=== PATIENT | male | born 1950 | race Caucasian/White ===

== ENCOUNTER 2016-03-14 13:40 | Emergency (ER) | payer OTHER ==
[~2016-03-14] VITALS: Wt 57.5 kg
[~2016-03-14 13:40] MED LIST: BISA-57 PO; CITROMA PO; DOCU-144 PO; FER325 PO; GLYC1SUP92 PR; HYDR-3498 PO; HYDR-762 PO; POLY17PO6 PO
[2016-03-14] MEDS ORDERED: ONDANSETRON 4 MG INJ IV STA (15:34)
[2016-03-14] MEDS ORDERED: FAMOTIDINE 20 MG INJ IV STA (15:34)
[2016-03-14] MEDS ORDERED: SOD CHLORIDE 0.9% 1,000 ML IV STA (15:34)
[2016-03-14 16:13] LABS: BASOPHILS % 0.3 % (0.0-2.0); EOSINOPHILS # 0.1 10^3/ul (0.0-0.5); EOSINOPHILS % 1.2 % (0.0-7.0); HEMATOCRIT 39.7 % (42.0-52.0); HEMOGLOBIN 12.8 g/dl (14.0-18.0); LYMPHOCYTES # 0.9 10^3/ul (0.8-2.9); LYMPHOCYTES % 8.4 % (15.0-51.0); MEAN CORPUSCULAR HGB CONC 32.2 g/dl (32.0-37.0); MEAN CORPUSCULAR VOLUME 71.4 fl (82.0-101.0); MEAN PLATELET VOLUME 7.4 fl (7.4-10.4); MONOCYTE # 0.3 10^3/ul (0.3-0.9); NEUTROPHIL # 9.2 10^3/ul (1.6-7.5); NEUTROPHILS % 87.1 % (39.0-77.0); PLATELET COUNT 493 10^3/UL (140-440); RED BLOOD COUNT 5.55 10^6/ul (4.70-6.10); RED CELL DISTRIBUTION WIDTH 15.6 % (11.5-14.5); UNCORRECTED WBC 10.6 10^3/ul (4.8-10.8); WHITE BLOOD COUNT 10.6 10^3/ul (4.8-10.8)
[2016-03-14 16:14] LABS: CONDITION 1; LH ANALYZER COMMENTS 1
[2016-03-14 16:17] LABS: POTASSIUM 3.9 mmol/L (3.5-5.1)
[2016-03-14 16:20] LABS: ALBUMIN/GLOBULIN RATIO 1.11; BILIRUBIN,INDIRECT 0.3 mg/dl (0-1.1); BILIRUBIN,TOTAL 0.3 mg/dl (0.2-1.3); CREATININE 0.85 mg/dl (0.61-1.24); TOTAL PROTEIN 7.6 g/dl (6.1-8.1)
[2016-03-14 16:21] LABS: CALCIUM 9.3 mg/dl (8.4-10.2)
[2016-03-14 17:25] LABS: ADD UMIC YES; URINE BILIRUBIN (Dip) NEGATIVE (NEGATIVE); URINE BLOOD (Dip) NEGATIVE (NEGATIVE); URINE COLOR LT. YELLOW (YELLOW); URINE GLUCOSE (Dip) NEGATIVE (NEGATIVE); URINE KETONES (Dip) NEGATIVE (NEGATIVE); URINE LEUKOCYTE ESTERASE (Dip) 2+ (NEGATIVE); URINE NITRITE (Dip) POSITIVE (NEGATIVE); URINE TOTAL PROTEIN (Dip) TRACE (NEGATIVE); URINE UROBILINOGEN (Dip) 0.2 E.U./dL (0.1-1.0)
[2016-03-14 17:35] LABS: BACTERIA,URINE MANY; SQUAMOUS EPITHELIAL CELL,UR RARE; URINE RBCS NONE SEEN /HPF (0)
--- NOTE | 2016-03-14 17:42 | RADRPT ---
PROCEDURE: CT abdomen and pelvis without contrast. CLINICAL INDICATION: Lower abdominal pain. TECHNIQUE: CT of the abdomen and pelvis without contrast was performed on a multidetector high-res olution CT scanner. Coronal and sagittal reformatted images were obtained from the axial source imag es. Images were reviewed on a high-resolution PACS workstation. The total exam CTDI equals 5.48 mGy and the total exam DLP equals 314.65 mGy-cm. One or more of the following dose reduction techniques were used: - Automated exposure control. - Adjustment of the mA and/or kV according to patient size. - Use of iterative reconstruction technique. COMPARISON: CTs dated 10/14/2015 and 06/08/2015. FINDINGS: The visualized lung bases are clear and the visualized heart is unremarkable. The liver is grossly unremarkable. There is no intra or extrahepatic biliary ductal dilatation. The gallbladder, spleen, pancreas, adrenal glands are grossly unremarkable. There is a nonobstructing 3 mm stone at the upper pole of the left kidney. Left renal cysts are again seen. There is no hydro nephrosis. Again demonstrated is irregular wall thickening and abnormal soft tissue density in the region of th e rectosigmoid junction, likely with luminal narrowing of the bowel in this region, suspicious for u nderlying neoplasm. There is a large of stool throughout the colon and there is mild diffuse dilatat ion of the small bowel with fecalization of the small bowel contents, consistent with bowel stasis. These findings may be related to an underlying partial small bowel obstruction secondary to this st ructure at the rectosigmoid junction. The appendix is not identified. There is a new small volume of ascites and there is presacral edema. There is no free intraperitonea l air. There is no mesenteric or retroperitoneal adenopathy. There are atherosclerotic changes of the aorta, which is nonaneurysmal. The prostate gland is enlarged measuring 4.9 cm in axial dimensio n. There is diffuse wall thickening of the urinary bladder. There is moderate multilevel degenerati ve spondylosis. There are no concerning osseous lesions. IMPRESSION: 1. Irregular wall thickening with luminal narrowing in the region of the rectosigmoid junction, rosmery picious for neoplasm with an underlying malignant stricture. Large amount of stool throughout the co emmanuel with moderate distension of small bowel loops and fecalization of the distal small bowel content s, suspicious for a partial obstruction related to the rectosigmoid stricture. 2. Nonobstructing 3 mm stone at the upper pole of the left kidney. 3. Small volume of ascites, new when compared with the prior. Presacral edema, unchanged. 4. Enlarged prostate gland. RPTAT: AA .Jos Asencio MD, Date Time Electronically viewed and signed by .Jos Asencio MD, on 03/14/2016 17:41 .P/
--- NOTE | 2016-03-14 17:56 | ERD ---
ER Documentation Chief Complaint Date/Time DATE: 03/14/16 TIME: 17:52 Chief Complaint abd pain, n/v, diarrhea, dizzy. hx colon CA. HPI This is a 65-year-old male who presents to the emergency room for evaluation of abdominal pain, nausea, vomiting and diarrhea. Patient states that the symptoms have been present for approximately 3 days duration. He does state that he has a history of colon cancer and is on chemotherapy for his colon cancer. The patient presents today for evaluation and localizes pain to the midportion of his abdomen. He denies any radiation of pain and denies any aggravating or relieving factors for his pain. ROS All systems reviewed and are negative except as per history of present illness. Medications Home Meds Reported Medications Hydrocodone Bit-Acetaminophen* ([place]*) 10-325 Mg Tablet, 1 TAB PO Q6 Y for PAIN , TAB 10/14/15 Discontinued Scripts Glycerin* (Glycerin (Adult)*) 1 Each Supp.rect, 1 EACH [place] DAILY Y for CONSTIPATION, #10 SUPP.RECT Prov:VIRI GOMEZ MD 10/14/15 Magnesium Citrate* (Citroma*) 300 Ml Soln, 300 ML PO DAILY Y for CONSTIPATION for 7 Days, #1 BOTTLE Prov:VIRI GOMEZ MD 10/14/15 Hydrocodone Bit-Acetaminophen* ([place]*) 5-325 Mg Tab, 1 TAB PO q6h Y for PAIN, # 40 TAB Prov:YUSUF POLLOCK NP 06/10/15 Bisacodyl* (Dulcolax*) 5 Mg Tablet.dr, 10 MG PO DAILY Y for CONSTIPATION, #20 TAB Prov:YUSUF POLLOCK NP 06/10/15 Docusate Sodium* (Colace*) 100 Mg Cap, 100 MG PO BID for 30 Days, CAP Prov:YUSUF POLLOCK NP 06/10/15 Polyethylene Glycol* (Miralax*) 17 Gm/Pkt Liq, 17 GM PO DAILY for 30 Days Prov:YUSUF POLLOCK NP 06/10/15 Ferrous Sulfate* (Ferrous Sulfate*) 325 Mg Tabec, 325 MG PO TID for 30 Days, TAB Prov:YUSUF POLLOCK NP 06/10/15 Allergies Allergies: Coded Allergies: No Known Allergy (Unverified , 03/14/16) PMhx/Soc History of Surgery: No Anesthesia Reaction: No (ukn) Hx Neurological Disorder: No Hx Respiratory Disorders: No Hx Cardiac Disorders: No Hx Psychiatric Problems: No Hx Miscellaneous Medical Probl: Yes (colon CA) Hx Alcohol Use: No Hx Substance Use: No Hx Tobacco Use: Yes (Cigar ) Smoking Status: Current some day smoker Physical Exam Vitals Vital Signs Date Time Temp Pulse Resp B/P Pulse Ox O2 Delivery O2 Flow Rate FiO2 03/14/16 14:01 96.9 129 20 114/73 99 Physical Exam INITIAL VITAL SIGNS: Reviewed by me GENERAL: The patient is well developed and appropriate for usual state of health in no apparent distress HEENT: Dry mucous membranes, pupils equal, round, and reactive to light. EOMI. There is no scleral icterus. NECK: C-spine is soft and supple, there is no meningismus. There is no cervical lymphadenopathy. LUNGS: Clear to auscultation bilaterally. There are no rales, wheezes or rhonchi. HEART: Regular rate and rhythm, no murmurs, clicks, rubs or gallops. ABDOMEN: Suprapubic tenderness to palpation, negative McBurney point tenderness , no CVAT, otherwise soft, non-tender, non-distended. There are bowel sounds in all four quadrants. No rebound or guarding. EXTREMITIES: There is no peripheral cyanosis or edema. No focal swelling or erythema. NEUROLOGICAL: The patient moves all four extremities with 5/5 strength. Cranial nerves II - XII are intact. Normal gait. Alert and oriented SKIN: There is no apparent rash or petechiae. HEME/LYMPHATIC: There is no evidence of excessive bruising or lymphedema. PSYCHIATRIC: The patient does not appear anxious or depressed. Result Diagram: 03/14/16 1557 03/14/16 1557 Results 24 hrs Laboratory Tests Test 03/14/16 15:57 03/14/16 17:13 Alanine Aminotransferase (ALT/SGPT) 15IU/L Albumin 4.0g/dl Albumin/Globulin Ratio 1.11 Alkaline Phosphatase 83IU/L Anion Gap 17 Aspartate Amino Transf (AST/SGOT) 17IU/L Basophils # 0.010^3/ul Basophils % 0.3% Blood Morphology Comment Blood Urea Nitrogen 19mg/dl Calcium Level 9.3mg/dl Carbon Dioxide Level 26mmol/L Chloride Level 96mmol/L Creatinine 0.85mg/dl Direct Bilirubin 0.00mg/dl Eosinophils # 0.110^3/ul Eosinophils % 1.2% Globulin 3.60g/dl Glucose Level 152mg/dl Hematocrit 39.7% Hemoglobin 12.8g/dl Indirect Bilirubin 0.3mg/dl Lipase 26U/L Lymphocytes # 0.910^3/ul Lymphocytes % 8.4% Mean Corpuscular Hemoglobin 23.0pg Mean Corpuscular Hemoglobin Concent 32.2g/dl Mean Corpuscular Volume 71.4fl Mean Platelet Volume 7.4fl Monocytes # 0.310^3/ul Monocytes % 3.0% Neutrophils # 9.210^3/ul Neutrophils % 87.1% Nucleated Red Blood Cells # 0.010^3/ul Nucleated Red Blood Cells % 0.0/100WBC Platelet Count 61518^3/UL Potassium Level 3.9mmol/L Red Blood Count 5.5510^6/ul Red Cell Distribution Width 15.6% Sodium Level 135mmol/L Total Bilirubin 0.3mg/dl Total Protein 7.6g/dl White Blood Count 10.610^3/ul Urine Bacteria MANY Urine Bilirubin NEGATIVE Urine Clarity CLOUDY Urine Coarse Granular Casts FEW Urine Color LT. YELLOW Urine Glucose NEGATIVE% Urine Hemoglobin NEGATIVE Urine Hyaline Casts MANY Urine Ketones NEGATIVE Urine Leukocyte Esterase 2+ Urine Microscopic RBC NONE SEEN/HPF Urine Microscopic WBC >50/HPF Urine Nitrite POSITIVE Urine Specific [place] 1.015 Urine Squamous Epithelial Cells RARE Urine Total Protein TRACE Urine Urobilinogen 0.2 E.U./dL Urine pH 6.0 Current Medications Medications (Trade) Dose Ordered Sig/Krystle Route PRN Reason Start Time Stop Time Status Last Admin Dose Admin Sodium Chloride (NS) 1,000 ml @ 1,000 mls/hr Q1H STAT IV 03/14/16 15:34 03/14/16 16:33 DC 03/14/16 15:54 Ondansetron HCl (Zofran Inj) 4 mg ONCE STAT IV 03/14/16 15:34 03/14/16 15:36 DC 03/14/16 15:54 Famotidine 20 mg 20 mg ONCE STAT IV 03/14/16 15:34 03/14/16 15:36 DC 03/14/16 15:54 Ceftriaxone Sodium (Rocephin) 50 ml @ 100 mls/hr ONCE ONCE IVPB 1/12/17 18:00 03/14/16 18:29 UNV Procedures/MDM CT abdomen pelvis without: 1. Irregular wall thickening with luminal narrowing in the region of the rectosigmoid junction, suspicious for neoplasm with an underlying malignant stricture. Large amount of stool throughout the colon with moderate distension of small bowel loops and fecalization of the distal small bowel contents, suspicious for a partial obstruction related to the rectosigmoid stricture. 2. Nonobstructing 3 mm stone at the upper pole of the left kidney. 3. Small volume of ascites, new when compared with the prior. Presacral edema , unchanged. 4. Enlarged prostate gland. This 65-year-old male presents to the emergency room for evaluation of abdominal pain, nausea, vomiting and diarrhea. When I evaluated him he did have suprapubic tenderness to palpation. Lab work was obtained including a CT of the abdomen and the urinalysis. After we sent off labs this patient did mention that he does have burning on urination. Urine does show a nitrite positive urinary tract infection. This patient is afebrile, no leukocytosis, he is tolerating p.o. fluids at this time. He is hemodynamically stable and was given 1 g of Rocephin here in the emergency room. Given this patient's stable symptoms he will be discharged home with a prescription for ciprofloxacin to take over the course of the next 2 weeks. The patient is okay with her plan of care and has no signs of sepsis at this time. Departure Diagnosis: Primary Impression: Acute cystitis Additional Impression: Diarrhea Condition: Stable JOSE E GILES DO Mar 14, 2016 17:56
[2016-03-14] MEDS ORDERED: CIPR500T4 PO (17:57)
[2016-03-14] MEDS ORDERED: CEFTRIAXONE 1 GM/50 ML (PMX) 50 ML IVPB ONE (18:00)
[2016-03-14] MEDS ORDERED: HYDR-902 PO (18:16)
[2016-03-14] MEDS ORDERED: HYDROCODONE/APAP (10/325) TAB PO ONE (18:30)
[2016-03-14 19:23] VITALS: BP 110/70; PULSE 78; RESP 18
== END 2016-03-14 19:00 | disposition home or self-care (01) ==
LOC: E/R 13:40
DX: N30.00 Acute cystitis without hematuria (principal); F17.210 Nicotine dependence, cigarettes, uncomplicated; R19.7 Diarrhea, unspecified; Z85.038 Personal history of other malignant neoplasm of large intestine
CPT/HCPCS: 36415; 74176; 80053; 81001; 83690; 85025; 96374; 96375; J0696; J2405; J7030; Z7502; Z7610; 81003

== ENCOUNTER 2016-04-01 11:17 | Inpatient (IN) | payer BC, OTHER ==
[~2016-04-01] VITALS: Ht 182.9 cm; Wt 52.9 kg
[~2016-04-01 11:17] MED LIST changes: -BISA-57 PO; +CIPR500T4 PO; -CITROMA PO; -DOCU-144 PO; -FER325 PO; -GLYC1SUP92 PR; -HYDR-3498 PO; +HYDR-902 PO; -POLY17PO6 PO
[2016-04-01] MEDS ORDERED: morphine 4 MG/ML VIAL IV STA (15:12)
[2016-04-01] MEDS ORDERED: ONDANSETRON 4 MG INJ IV STA (15:12)
[2016-04-01] MEDS ORDERED: SOD CHLORIDE 0.9% 1,000 ML IV ONE (15:30)
[2016-04-01 15:33] LABS: BASOPHIL # 0.1 10^3/ul (0.0-0.1); BASOPHILS % 0.8 % (0.0-2.0); EOSINOPHILS % 0.5 % (0.0-7.0); HEMATOCRIT 37.9 % (42.0-52.0); LYMPHOCYTES # 1.1 10^3/ul (0.8-2.9); LYMPHOCYTES % 12.7 % (15.0-51.0); MEAN CORPUSCULAR HEMOGLOBIN 22.7 pg (29.0-33.0); MEAN CORPUSCULAR HGB CONC 31.6 g/dl (32.0-37.0); MEAN CORPUSCULAR VOLUME 71.8 fl (82.0-101.0); MEAN PLATELET VOLUME 7.7 fl (7.4-10.4); MONOCYTE # 0.7 10^3/ul (0.3-0.9); MONOCYTES % 8.2 % (0.0-11.0); NEUTROPHIL # 6.6 10^3/ul (1.6-7.5); NEUTROPHILS % 77.8 % (39.0-77.0); PLATELET COUNT 560 10^3/UL (140-440); RED BLOOD COUNT 5.28 10^6/ul (4.70-6.10); RED CELL DISTRIBUTION WIDTH 16.2 % (11.5-14.5); UNCORRECTED WBC 8.5 10^3/ul (4.8-10.8); WHITE BLOOD COUNT 8.5 10^3/ul (4.8-10.8)
[2016-04-01 15:36] LABS: CONDITION 1; LH ANALYZER COMMENTS 1
[2016-04-01 15:39] LABS: ALBUMIN 3.6 g/dl (3.3-4.9); POTASSIUM 3.4 mmol/L (3.5-5.1)
[2016-04-01 15:41] LABS: BILIRUBIN,INDIRECT 0.2 mg/dl (0-1.1); BILIRUBIN,TOTAL 0.2 mg/dl (0.2-1.3); CREATININE 0.8 mg/dl (0.61-1.24)
[2016-04-01 15:42] LABS: ALBUMIN/GLOBULIN RATIO 1.05; CALCIUM 8.8 mg/dl (8.4-10.2)
[2016-04-01 15:49] LABS: URINE BLOOD (Dip) POC Negative (NEGATIVE)
--- NOTE | 2016-04-01 16:04 | RADRPT ---
PROCEDURE: CT Abdomen and Pelvis without contrast CLINICAL INDICATION: Pain TECHNIQUE: Transaxial images were obtained through the abdomen and pelvis on a multi-slice scanner without the intravenous contrast administration. No oral contrast had previously been given. Sagit sanchez and coronal re-formations were subsequently reconstructed. One or more of the following dose reduction techniques were used: - Automated exposure control. - Adjustment of the mA and/or kV according to patient size. - Use of iterative reconstruction technique. Radiation dose: CTDIvol = 5.34 mGy; DLP = 317.53 mGy-cm. COMPARISON: 03/14/2016 FINDINGS: Lung bases: The visualized lung bases appear unremarkable. Liver: Normal in size and in attenuation. There is no focal lesion. Gallbladder: The gallbladder is somewhat contracted but no stones are identified and the wall does n ot appear thickened. Bile ducts: The intra and extrahepatic bile ducts are normal in caliber. Pancreas: Appears normal with no mass or inflammation evident. Spleen: Normal in size with no focal lesion. Adrenals: Normal with no mass identified. Kidneys, ureters and bladder: A 1.2 cm hypodensity is seen within the anterior medial mid pole of th e left kidney and an exophytic 2.3 cm hypodensity is seen extend off the posterior lateral superior pole of the left kidney compatible with cysts. A 2 mm nonobstructing nephrolith is again seen within the superior pole left kidney. The kidneys are otherwise unremarkable without hydronephrosis. The ureters are unremarkable. The bladder is suboptimally distended giving the wall thickened appearan ce. Reproductive organs: The prostate is mildly prominent. Stomach and bowel: There is increasing air and fluid distension and organization of multiple segment s of small bowel but there is also stool seen throughout the colon which is moderately distended. T he pattern is therefore most compatible with a severe ileus. The stomach appears unremarkable. Appendix: The vermiform appendix is not discretely identified. Peritoneum: There is a small amount of free intraperitoneal fluid primarily within the right subphre marcos space and bilateral pericolic gutters as well as within the pelvis. No free air is identified. Aorta: There is atherosclerotic vascular calcification but no abdominal aortic aneurysm is evident. IVC: Unremarkable. Lymph nodes: No pathologically enlarged nodes are identified. Osseous structures: Moderate diffuse degenerative endplate changes are seen to the spine. IMPRESSION: 1. Since the previous CT of 03/14/2016, there has been interval increased gaseous distension and or ganization of multiple segments of small bowel but there is again stool seen throughout the colon. These findings are most suggestive of a worsening severe ileus than bowel obstruction. The vermifor m appendix is not discretely identified. 2. There is again no evidence of urinary outflow obstruction or ureterolithiasis. A 1.2 cm cyst is seen within the medial mid pole of the left kidney and a 2.3 cm cyst is again seen extend posterior ly off the superior pole of the left kidney. A 2 mm nonobstructing nephrolith is seen in the superio r pole left kidney. The bladder is suboptimally distended giving the wall thickened appearance and t he prostate is mildly prominent. 3. Slight interval increase to the small amount of free intraperitoneal fluid. Again no free air i s evident. 4. Atherosclerotic vascular changes are again evident. Physician Franky Date Time Electronically viewed and signed by Physician Franky on 04/01/2016 16:04 /
[2016-04-01] MEDS ORDERED: BISACODYL 10 MG SUPP PR ONE (17:00)
[2016-04-01] MEDS ORDERED: NA PHOSPHATE/BIPHOS 133 ML ENEMA PR ONE (17:00)
--- NOTE | 2016-04-01 18:27 | ERA ---
ER Documentation Chief Complaint Date/Time DATE: 04/01/16 Chief Complaint ADOMINAL PAIN X 1 WEEK,NAUSEA,VOMITING,HX COLON CA HPI The patient is an 65-year-old male, presenting to the ER because of diffuse abdominal pain intermittently for 1 week, associated with constipation. He has similar symptoms previously. He has been taking Cipro for the last 10 days for UTI. He complains of nausea, vomiting, decreased appetite, painful urination for the last 3 days. He denies chest pain, dyspnea, palpitation. He does not smoke, drink Past medical history: History of colon cancer, status post chemotherapy and radiation therapy Past surgical history: Right knee arthroscopy ROS All systems reviewed and are negative except as per history of present illness. Medications Home Meds Discontinued Reported Medications Hydrocodone Bit-Acetaminophen* ([place]*) 10-325 Mg Tablet, 1 TAB PO Q6 Y for PAIN , TAB 10/14/15 Discontinued Scripts Hydrocodone/Acetaminophen ([place] 10-325 Tablet) 1 Each Tablet, 1 TAB PO Q6H Y for PAIN, #7 TAB Prov:JOSE E GILES DO 03/14/16 Ciprofloxacin Hcl* (Ciprofloxacin Hcl*) 500 Mg Tablet, 500 MG PO BID for 14 Days , TAB Prov:JOSE E GILES DO 03/14/16 Allergies Allergies: Coded Allergies: No Known Allergies (Verified Allergy, Unknown, 04/01/16) PMhx/Soc History of Surgery: Yes (R knee surgery) Anesthesia Reaction: No (ukn) Hx Neurological Disorder: No Hx Respiratory Disorders: No Hx Cardiac Disorders: No Hx Psychiatric Problems: No Hx Miscellaneous Medical Probl: Yes (colon CA s/p chemo/radiation.) Hx Alcohol Use: No Hx Substance Use: No Hx Tobacco Use: Yes (Cigar ) Smoking Status: Current every day smoker Physical Exam Vitals Vital Signs Date Time Temp Pulse Resp B/P Pulse Ox O2 Delivery O2 Flow Rate FiO2 04/01/16 14:00 98.1 82 16 134/80 98 Room Air 04/01/16 11:56 97.9 78 18 132/78 98 Physical Exam Const: No acute distress. Head: Atraumatic. Eyes: Normal Conjunctiva. ENT: Normal External Ears, Nose and Mouth. Neck: Full range of motion. No meningismus. Resp: Clear to auscultation bilaterally. Cardio: Regular rate and rhythm, no murmurs. Abd: Soft, non distended, hypoactive bowel sounds, diffuse abdominal discomfort, no rigidity, rebound, CVA tenderness Skin: No petechiae or rashes. Back: No midline or flank tenderness. Ext: No cyanosis, or edema. Neur: Awake and alert. No focal deficit Psych: Normal Mood and Affect. Result Diagram: 04/01/16 1510 04/01/16 1510 Results 24 hrs Laboratory Tests Test 04/01/16 15:10 04/01/16 15:49 Alanine Aminotransferase (ALT/SGPT) 25IU/L Albumin 3.6g/dl Albumin/Globulin Ratio 1.05 Alkaline Phosphatase 89IU/L Anion Gap 15 Aspartate Amino Transf (AST/SGOT) 18IU/L Basophils # 0.110^3/ul Basophils % 0.8% Blood Morphology Comment Blood Urea Nitrogen 26mg/dl Calcium Level 8.8mg/dl Carbon Dioxide Level 32mmol/L Chloride Level 93mmol/L Creatinine 0.80mg/dl Direct Bilirubin 0.00mg/dl Eosinophils # 0.010^3/ul Eosinophils % 0.5% Globulin 3.40g/dl Glucose Level 120mg/dl Hematocrit 37.9% Hemoglobin 12.0g/dl Indirect Bilirubin 0.2mg/dl Lipase 35U/L Lymphocytes # 1.110^3/ul Lymphocytes % 12.7% Mean Corpuscular Hemoglobin 22.7pg Mean Corpuscular Hemoglobin Concent 31.6g/dl Mean Corpuscular Volume 71.8fl Mean Platelet Volume 7.7fl Monocytes # 0.710^3/ul Monocytes % 8.2% Neutrophils # 6.610^3/ul Neutrophils % 77.8% Nucleated Red Blood Cells # 0.010^3/ul Nucleated Red Blood Cells % 0.0/100WBC Platelet Count 04948^3/UL Potassium Level 3.4mmol/L Red Blood Count 5.2810^6/ul Red Cell Distribution Width 16.2% Sodium Level 137mmol/L Total Bilirubin 0.2mg/dl Total Protein 7.0g/dl White Blood Count 8.510^3/ul Bedside Urine Blood Negative Bedside Urine Glucose (UA) 0.1% Bedside Urine Ketones (LAB) 3+ Bedside Urine Leukocyte Esterase (L Negative Bedside Urine Nitrite (LAB) Negative Bedside Urine Protein (LAB) 2+ Bedside Urine pH (LAB) 5.5 Current Medications Medications (Trade) Dose Ordered Sig/Krystle Route PRN Reason Start Time Stop Time Status Last Admin Dose Admin Morphine Sulfate (morphine) 4 mg ONCE STAT IV 04/01/16 15:12 04/01/16 15:13 DC 04/01/16 15:19 Ondansetron HCl 4 mg 4 mg ONCE STAT IV 04/01/16 15:12 04/01/16 15:13 DC 04/01/16 15:19 Sodium Chloride (NS) 1,000 ml @ 1,000 mls/hr Q1H ONCE IV 04/01/16 15:30 04/01/16 16:29 DC 04/01/16 15:40 Sodium Biphosphate/ Sodium Phosphate (Fleet Enema) 133 ml ONCE ONCE AR 04/01/16 17:00 04/01/16 17:01 DC 04/01/16 16:42 Bisacodyl 10 mg 10 mg ONCE ONCE AR 04/01/16 17:00 04/01/16 17:01 DC 04/01/16 16:42 Potassium Chloride/Sodium Chloride (KCl/NS) 110 ml @ 55 mls/hr ONCE ONCE IVPB 04/01/16 20:00 04/01/16 21:59 Procedures/[place] [id number] Radiology Main Line: [phone] DIAGNOSTIC IMAGING REPORT Patient: CARA WILKINSON : 1950 Age: 65 Sex: M MR #: [id number] DOS: 04/01/16 [facility] Ordering MD: MARSHAL BOLAÑOS MD Location: E/R Room/Bed: PROCEDURE: CT Abdomen and Pelvis without contrast CLINICAL INDICATION: Pain TECHNIQUE: Transaxial images were obtained through the abdomen and pelvis on a multi-slice scanner without the intravenous contrast administration. No oral contrast had previously been given. Sagittal and coronal re-formations were subsequently reconstructed. One or more of the following dose reduction techniques were used: - Automated exposure control. - Adjustment of the mA and/or kV according to patient size. - Use of iterative reconstruction technique. Radiation dose: CTDIvol = 5.34 mGy; DLP = 317.53 mGy-cm. COMPARISON: 03/14/2016 FINDINGS: Lung bases: The visualized lung bases appear unremarkable. Liver: Normal in size and in attenuation. There is no focal lesion. Gallbladder: The gallbladder is somewhat contracted but no stones are identified and the wall does not appear thickened. Bile ducts: The intra and extrahepatic bile ducts are normal in caliber. Pancreas: Appears normal with no mass or inflammation evident. Spleen: Normal in size with no focal lesion. Adrenals: Normal with no mass identified. Kidneys, ureters and bladder: A 1.2 cm hypodensity is seen within the anterior medial mid pole of the left kidney and an exophytic 2.3 cm hypodensity is seen extend off the posterior lateral superior pole of the left kidney compatible with cysts. A 2 mm nonobstructing nephrolith is again seen within the superior pole left kidney. The kidneys are otherwise unremarkable without hydronephrosis. The ureters are unremarkable. The bladder is suboptimally distended giving the wall thickened appearance. Reproductive organs: The prostate is mildly prominent. Stomach and bowel: There is increasing air and fluid distension and organization of multiple segments of small bowel but there is also stool seen throughout the colon which is moderately distended. The pattern is therefore most compatible with a severe ileus. The stomach appears unremarkable. Appendix: The vermiform appendix is not discretely identified. Peritoneum: There is a small amount of free intraperitoneal fluid primarily within the right subphrenic space and bilateral pericolic gutters as well as within the pelvis. No free air is identified. Aorta: There is atherosclerotic vascular calcification but no abdominal aortic aneurysm is evident. IVC: Unremarkable. Lymph nodes: No pathologically enlarged nodes are identified. Osseous structures: Moderate diffuse degenerative endplate changes are seen to the spine. IMPRESSION: 1. Since the previous CT of 03/14/2016, there has been interval increased gaseous distension and organization of multiple segments of small bowel but there is again stool seen throughout the colon. These findings are most suggestive of a worsening severe ileus than bowel obstruction. The vermiform appendix is not discretely identified. 2. There is again no evidence of urinary outflow obstruction or ureterolithiasis. A 1.2 cm cyst is seen within the medial mid pole of the left kidney and a 2.3 cm cyst is again seen extend posteriorly off the superior pole of the left kidney. A 2 mm nonobstructing nephrolith is seen in the superior pole left kidney. The bladder is suboptimally distended giving the wall thickened appearance and the prostate is mildly prominent. 3. Slight interval increase to the small amount of free intraperitoneal fluid. Again no free air is evident. 4. Atherosclerotic vascular changes are again evident. Physician Franky Date Time Electronically viewed and signed by Physician Franky on 04/01/2016 16:04 RH/ CC: MARSHAL BOLAÑOS MD MEDICAL MAKING DECISION: The patient is a 75-year-old male, presenting with acute ileus, acute hypokalemia, acute dehydration. He was treated with 1 L normal saline, morphine 4 mg IV for pain, Zofran formalin IV for nausea, potassium chloride 20 mEq IV and a Fleet enema good response. The differential diagnoses considered include but are not limited to cholelithiasis, cholecystitis, cystitis, pancreatitis, hepatitis, gastritis, peptic ulcer disease, gastric ulcer, appendicitis, diverticulitis, cholangitis, choledocholithiasis, partial small bowel obstruction. Departure Diagnosis: Primary Impression: Ileus Additional Impressions: Hypokalemia Anemia Condition: Stable Comments I discussed the findings with the patient. I discussed the patient with the on- call hospitalist Dr Cummings who was made aware of the lab, the treatment, the patient condition. The patient is admitted to medical surgery bed at 6:50 PM MARSHAL BOLAÑOS MD Apr 01, 2016 18:27
[2016-04-01] MEDS ORDERED: HYDROmorphONE 1 MG/ML SYG IV STA (19:26)
[2016-04-01] MEDS ORDERED: NACL 0.9% 3 ML SYG IV SCH (19:30)
[2016-04-01] MEDS ORDERED: ALBUTEROL/IPRATROPIUM (NEB) 3 ML AMP HHN PRN (19:30)
[2016-04-01] MEDS ORDERED: BACLOFEN 10 MG TAB PO ONE (19:30)
[2016-04-01] MEDS ORDERED: hydrALAzine 20 MG INJ IV PRN (19:30)
[2016-04-01] MEDS ORDERED: NITROGLYCERIN (SL) 0.4 MG TAB SL PRN (19:30)
[2016-04-01] MEDS ORDERED: NA PHOSPHATE/BIPHOS 133 ML ENEMA PR PRN (19:30)
[2016-04-01] MEDS ORDERED: DOCUSATE SODIUM 100 MG CAP PO PRN (19:30)
[2016-04-01] MEDS ORDERED: ACETAMINOPHEN 325 MG TAB PO PRN (19:30)
[2016-04-01] MEDS ORDERED: PANTOPRAZOLE 40 MG INJ IV ONE (19:30)
[2016-04-01] MEDS ORDERED: POTASSIUM CHLORIDE 20 MEQ in SOD CHLORIDE 0.9% 100 ML IVPB ONE (20:00)
[2016-04-01 20:46] VITALS: TEMP 98.3
[2016-04-01 21:01] LABS: INR 1.07; PARTIAL THROMBOPLASTIN TIME 29.3 Sec (25.0-35.0); PROTIME 13.9 Sec (12.2-14.2); PT RATIO 1.1
[2016-04-01 21:08] VITALS: BP 154/74; RESP 21
[2016-04-01 21:30] VITALS: Ht 182.9 cm; Wt 52.9 kg
[2016-04-01] MEDS: SOD CHLORIDE 0.45% 1,000 ML IV SCH (21:38)
[2016-04-01] MEDS: HEPARIN 5,000 UNIT/0.5 ML SYG SC SCH (22:07)
[2016-04-02] MEDS: LORAZEPAM 2 MG INJ IV PRN ×2 (00:56→22:16)
[2016-04-02 06:00] LABS: CHOL/HDL RATIO 2.2 RATIO
[2016-04-02] MEDS ORDERED: PANTOPRAZOLE 40 MG INJ IV SCH (06:00)
[2016-04-02 07:28] LABS: THYROID STIMULATING HORMONE 3.2 MIU/L (0.465-4.680)
[2016-04-02 07:41] VITALS: BP 140/69; RESP 20
[2016-04-02 07:53] LABS: POTASSIUM 3.9 mmol/L (3.5-5.1)
[2016-04-02 07:55] LABS: CREATININE 0.62 mg/dl (0.61-1.24)
[2016-04-02 07:56] LABS: CALCIUM 7.9 mg/dl (8.4-10.2); PHOSPHORUS 3.4 mg/dl (2.5-4.9)
--- NOTE | 2016-04-02 08:31 | HP ---
DATE OF ADMISSION: 04/01/2016 TIME SEEN: 2300 CHIEF COMPLAINT: Vomiting and constipation and abdominal pain. HISTORY OF PRESENT ILLNESS: The patient is a 65-year-old male with a history of colon cancer, statu s post chemo, hypertension, and a recently diagnosed UTI on Cipro who presented to the emergency dep artment with abdominal pain, vomiting, and constipation of 3 days' duration. He denied any fever, c hills, chest pain, or shortness of breath. When he presented to the ER, his vitals were stable. La boratory values show a hemoglobin of 12 with MCV of 72, potassium 3.4, chloride 93, bicarbonate 32, otherwise the rest of his CBC and CMP are within normal limits. His lipase is normal at 35. CT abd omen and pelvis was done which shows, as compared to the CT that was done 2 weeks ago, there has bee n interval increased gaseous distention and organization of multiple segments of small bowel with st ools throughout the colon, these findings most suggestive of worsening severe ileus than bowel obstr uction. Also noted was a distended bladder with thickened wall and slight interval increase to the small amount of free intraperitoneal fluid as well as a 1.2 cm cyst within the left kidney and 2.3 c m cyst posteriorly in the left kidney. An NG tube had been placed, and the patient admitted for fur ther evaluation. Surgical consultation has been placed. Of note, the patient was admitted here abo ct a year ago after he presented with abdominal pain. 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 EGD showed distal esophagitis with gastritis. Further anemia workup showed iron defic iency. REVIEW OF SYSTEMS: A 12-point review of systems negative except as mentioned in the HPI. PAST MEDICAL HISTORY: As per HPI. SOCIAL HISTORY: Denied a history of tobacco, alcohol, or illicit drug use. ALLERGIES: NO KNOWN DRUG ALLERGIES. HOME MEDICATIONS: Ciprofloxacin. PHYSICAL EXAMINATION: VITAL SIGNS: Stable. GENERAL: The patient in mild discomfort due to the NG tube, otherwise stable. HEENT: No obvious head deformity. NG tube in place to low intermittent suction. His pupils are re active to light. CARDIOVASCULAR: Regular rate and rhythm. No extra sounds. LUNGS: Clear. ABDOMEN: Soft, nondistended. There is discomfort to palpation diffusely with no guarding or rigidi ty. EXTREMITIES: No edema. NEUROLOGIC: No focal deficit. LABORATORY: Pertinent positives as mentioned in the HPI. IMAGING: CT abdomen and pelvis with results as mentioned in the HPI. IMPRESSION: 1. Abdominal pain with nausea, vomiting, constipation, likely secondary to severe ileus with less l ikely bowel obstruction. 2. Severe ileus. 3. 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 4. History of distal esophagitis, gastritis 5. Iron deficiency anemia. 6. History of hypertension. 7. Recently diagnosed urinary tract infection, on Cipro. 8. Mild hypokalemia. PLAN: We will keep n.p.o. He will be placed on IV fluid. Will continue NG tube to low intermitten t suction. The patient will be evaluated by the surgical team. We will provide pain medication and antiemetics as needed. Given his recent history of urinary tract infection, will check a urinalysi s. We will correct his electrolytes as needed. Management of his rectal cancer per his oncologist. Further workup and management per clinical course. Dictated By: LINDA FLYNN/KEVIN Conf#: [id number] DID#: [id number]
[2016-04-02] MEDS: SOD CHLORIDE 0.45% 1,000 ML IV SCH ×2 (08:55→20:16)
[2016-04-02] MEDS: HEPARIN 5,000 UNIT/0.5 ML SYG SC SCH ×2 (08:57→20:16)
[2016-04-02] MEDS: morphine 2 MG INJ IV PRN ×3 (09:09→20:16)
[2016-04-02 09:42] LABS: BASOPHILS % 0.3 % (0.0-2.0); EOSINOPHILS % 0.8 % (0.0-7.0); HEMATOCRIT 28.9 % (42.0-52.0); HEMOGLOBIN 9.3 g/dl (14.0-18.0); LYMPHOCYTES # 0.7 10^3/ul (0.8-2.9); LYMPHOCYTES % 13.9 % (15.0-51.0); MEAN CORPUSCULAR HEMOGLOBIN 22.9 pg (29.0-33.0); MEAN CORPUSCULAR HGB CONC 32.1 g/dl (32.0-37.0); MEAN CORPUSCULAR VOLUME 71.5 fl (82.0-101.0); MEAN PLATELET VOLUME 7.8 fl (7.4-10.4); MONOCYTE # 0.5 10^3/ul (0.3-0.9); MONOCYTES % 8.7 % (0.0-11.0); NEUTROPHILS % 76.3 % (39.0-77.0); PLATELET COUNT 353 10^3/UL (140-440); RED BLOOD COUNT 4.04 10^6/ul (4.70-6.10); RED CELL DISTRIBUTION WIDTH 15.8 % (11.5-14.5); UNCORRECTED WBC 5.2 10^3/ul (4.8-10.8); WHITE BLOOD COUNT 5.2 10^3/ul (4.8-10.8)
[2016-04-02 09:46] LABS: CONDITION 1; LH ANALYZER COMMENTS 1
--- NOTE | 2016-04-02 13:55 | PN ---
Date/Time of Note Date/Time of Note DATE: 04/02/16 TIME: 13:52 Assessment/Plan VTE Prophylaxis VTE Prophylaxis Intervention: heparin Lines/Catheters IV Catheter Type (from Nrs): Peripheral IV Assessment/Plan Chief Complaint/Hosp Course Assessment and plan 1. Abdominal pain likely secondary to ileus. Surgeon to follow. We'll get linen supervisor as well. 2. 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 We'll get oncologist follow 3. History of distal esophagitis and distress. We'll continue on PPI 4. Iron deficiency anemia. We'll resume patient's iron supplement 5. History of hypertension. We'll continue on antihypertensives and adjust as needed 6. Recent history of UTI. Continue on Cipro Disposition and plan: Await surgical/GI/oncology input. Continue on NG tube suction for now. Continue with analgesics as needed. npo for now. Continue inpatient monitoring Discussed plan of care with Dr. Roberts Problems: Subjective 24 Hr Interval Summary Free Text/Dictation Reports less abdominal pain at this time. Exam/Review of Systems Vital Signs Vitals Vital Signs Date Time Temp Pulse Resp B/P Pulse Ox O2 Delivery O2 Flow Rate FiO2 04/02/16 07:41 97.8 80 20 140/69 97 04/01/16 20:46 Room Air Intake and Output 04/01/16 04/01/16 04/02/16 15:00 23:00 07:00 Intake Total 900 ml Output Total 150 ml Balance 750 ml Exam General: No acute signs or symptoms of distress Eyes: pupils equal round, Anicteric sclera Neck: Supple nontender, no JVD Cardiac: S1, S2 auscultated, regular rhythm and rate Pulmonary: No coarse rhonchi or breathing auscultated GI: Abdomen soft nontender nondistended, bowel sounds active, NG tube in place Extremities: No edema bilateral lower extremities Skin: Clean dry and intact Neurologic: Alert to person place and time and situation Results Result Diagram: 04/02/1641904/02/16419 Results 24 hrs Laboratory Tests Test 04/01/16 15:10 04/01/16 15:49 04/01/16 19:49 04/02/16 04:20 Alanine Aminotransferase (ALT/SGPT) 25 Albumin 3.6 Albumin/Globulin Ratio 1.05 Alkaline Phosphatase 89 Anion Gap 15 15 Aspartate Amino Transf (AST/SGOT) 18 Basophils # 0.1 0.0 Basophils % 0.8 0.3 Blood Morphology Comment Blood Urea Nitrogen 26 H 27 H Calcium Level 8.8 7.9 L Carbon Dioxide Level 32 H 26 Chloride Level 93 L 100 Creatinine 0.80 0.62 Direct Bilirubin 0.00 Eosinophils # 0.0 0.0 Eosinophils % 0.5 0.8 Globulin 3.40 H Glucose Level 120 72 # Hematocrit 37.9 L 28.9 #L Hemoglobin 12.0 L 9.3 #L Indirect Bilirubin 0.2 Lipase 35 Lymphocytes # 1.1 0.7 L Lymphocytes % 12.7 L 13.9 L Mean Corpuscular Hemoglobin 22.7 L 22.9 L Mean Corpuscular Hemoglobin Concent 31.6 L 32.1 Mean Corpuscular Volume 71.8 L 71.5 L Mean Platelet Volume 7.7 7.8 Monocytes # 0.7 0.5 Monocytes % 8.2 8.7 Neutrophils # 6.6 4.0 Neutrophils % 77.8 H 76.3 Nucleated Red Blood Cells # 0.0 0.0 Nucleated Red Blood Cells % 0.0 0.0 Platelet Count 560 H 353 # Potassium Level 3.4 L 3.9 Red Blood Count 5.28 4.04 #L Red Cell Distribution Width 16.2 H 15.8 H Sodium Level 137 137 Total Bilirubin 0.2 Total Protein 7.0 White Blood Count 8.5 5.2 # Bedside Urine Blood Negative Bedside Urine Glucose (UA) 0.1% H Bedside Urine Ketones (LAB) 3+ H Bedside Urine Leukocyte Esterase (L Negative Bedside Urine Nitrite (LAB) Negative Bedside Urine Protein (LAB) 2+ H Bedside Urine pH (LAB) 5.5 Activated Partial Thromboplast Time 29.3 Free Thyroxine 1.70 INR International Normalized Ratio 1.07 Prothrombin Time 13.9 Prothrombin Time Ratio 1.1 Cholesterol Level 95 L Cholesterol/HDL Ratio 2.2 HDL Cholesterol 43 Hemoglobin A1c 5.1 LDL Cholesterol, Calculated 35 Magnesium Level 2.0 Phosphorus Level 3.4 Thyroid Stimulating Hormone (TSH) 3.200 Triglycerides Level 84 Medications Medications Current Medications Ondansetron HCl (Zofran Inj) 4 mg Q6H PRN IV NAUSEA AND/OR VOMITING; Start at 19:30 Acetaminophen (Tylenol Tab) 650 mg Q6H PRN PO PAIN LEVEL 1-3 OR FEVER; Start at 19:30 Acetaminophen/ Hydrocodone Bitart ([place] (5/325)) 1 tab Q6H PRN PO MODERATE PAIN LEVEL 4-6; Start 04/01/16 at 19:30 Morphine Sulfate (morphine) 2 mg Q4H PRN IV SEVERE PAIN LEVEL 7-10 Last administered on 04/02/16 09:09; Admin Dose 2 MG; Start 04/01/16 at 19:30 Docusate Sodium (Colace) 100 mg Q12H PRN PO CONSTIPATION; Start 04/01/16 at 19: 30 Magnesium Hydroxide (Milk Of Mag) 30 ml DAILY PRN PO CONSTIPATION; Start at 19:30 Sodium Biphosphate/ Sodium Phosphate (Fleet Enema) 133 ml DAILY PRN [place] CONSTIPATION; Start 04/01/16 at 19:30 Pantoprazole (Protonix Iv) 40 mg DAILY@06 IV Last administered on 04/02/16 06: 41; Admin Dose 40 MG; Start 04/02/16 at 06:00 Heparin Sodium (Porcine) 5000 unit 5,000 unit Q12 SC Last administered on 08:57; Admin Dose 5,000 UNIT; Start 04/01/16 at 21:00 Sodium Chloride (1/2 NS) 1,000 ml @ 75 mls/hr [id number] IV Last administered on 04/02/16 08:55; Admin Dose 75 MLS/HR; Start 04/01/16 at 19:04 Lorazepam (Ativan) 0.5 mg Q6H PRN IV ANXIETY Last administered on 04/02/16 00: 56; Admin Dose 0.5 MG; Start 04/01/16 at 19:30 Hydralazine HCl (Apresoline) 10 mg Q6H PRN IV ELEVATED BLOOD PRESSURE; Start at 19:30 Nitroglycerin (Nitroglycerin (Sl Tab) 0.4 Mg) 1 tab Q5M PRN SL ANGINA; Start at 19:30 Influenza Virus Vaccine (Fluzone) 0.5 ml ONCE ONCE IM* ; Start 04/03/16 at 09:00 ; Stop 04/03/16 at 09:01 GLORY CHEW Apr 02, 2016 13:55
[2016-04-02] MEDS ORDERED: LACTULOSE 30ML CUP PO ONE (17:30)
--- NOTE | 2016-04-02 17:32 | CONS ---
Date/Time of Note Date/Time of Note DATE: 04/02/16 TIME: 17:26 Assessment/Plan Assessment/Plan Additional Assessment/Plan Abdominal pain, evaluate ileus versus PUD * CT abdomen 04-02-16: Stomach and bowel: There is increasing air and fluid distension and organization of multiple segments of small bowel but there is also stool seen throughout the colon which is moderately distended. The pattern is therefore most compatible with a severe ileus. The stomach appears unremarkable. * NG tube inserted to decompress abdomen * PPI twice daily Nausea Vomiting * EGD 06-08-15: . Distal esophagitis. 2. Gastritis. 3 biopsies negative for malignancy and H. pylori infection. Anemia * Monitor H&H every 6 hours, transfuse 2 units for hemoglobin less than 7.5 * Repeat EGD tomorrow with Dr. Mason History of rectal cancer * Colonoscopy 06-08-15: IMPRESSION: Large obstructing mass, proximal rectum, clearly malignant in nature. Biopsies obtained. Unable to safely advance the colonoscope beyond this point. The distal margin of the mass was located at 12 cm from the anal verge. * Repeat colonoscopy with Dr. Mason tomorrow * Surgery following Further recommendations depend on clinical course Patient seen in collaboration with Dr. Mason Consultation Date/Type/Reason Admit Date/Time Apr 01, 2016 at 18:54 Type of Consultation: Gastroenterology Reason for Consultation Intractable nausea and vomiting Hx of Present Illness 65-year-old male presented to ED after 1 week of intense abdominal pain nausea and nonbloody bilious vomiting. Patient states that symptoms started abruptly and continued to worsen throughout the week. Patient denies diarrhea, fever, chills, sick contacts, travel outside the [place], chest pain, shortness of breath, and previous episode. Patient has significant past medical history of rectal adenocarcinoma that was treated with chemotherapy and radiation. Patient reports last treatment about 4 months ago. At bedside, NG tube inserted to low intermittent suction with slightly serosanguineous discharge. Patient was recently treated in the emergency room March 14 for similar symptoms and was diagnosed and treated for UTI. Prior to this patient presented to ED October and was treated for radiation cystitis as well as constipation. Presently patient needs colonoscopy in order to stage cancer prior to resection and EGD is recommended to rule out active upper GI bleeding secondary to his drop in hemoglobin. Advised patient of risks/benefits/alternative to procedure and patient is agreeable to proceed. Past Medical History Medical History: GI bleed, other (Rectal cancer) Past Surgical History Past Surgical Hx: no surgical history Social History Alcohol Use: rarely Smoking Status: Former smoker Exam/Review of Systems Vital Signs Vitals Vital Signs Date Time Temp Pulse Resp B/P Pulse Ox O2 Delivery O2 Flow Rate FiO2 04/02/16 07:41 97.8 80 20 140/69 97 04/01/16 20:46 Room Air Intake and Output 04/01/16 04/01/16 04/02/16 15:00 23:00 07:00 Intake Total 900 ml Output Total 150 ml Balance 750 ml Exam Constitutional: alert, oriented, other (Thin) Psych: nl mood/affect Head: atraumatic Eyes: EOMI, nl conjunctiva, nl lids, nl sclera ENMT: mucosa pink and moist, nl external ears & nose, nl lips & teeth, nl nasal mucosa & septum Respiratory: normal air movement Cardiovascular: regular rate and rhythm Gastrointestinal: non-tender, soft Neurological: NATIONAL INVESTIGATIVE PRODUCER II-XII intact Results Result Diagram: 04/02/16 04204/02/16 0420 Results 24 hrs Laboratory Tests Test 04/01/16 19:49 04/02/16 04:20 Activated Partial Thromboplast Time 29.3 Free Thyroxine 1.70 INR International Normalized Ratio 1.07 Prothrombin Time 13.9 Prothrombin Time Ratio 1.1 Anion Gap 15 Basophils # 0.0 Basophils % 0.3 Blood Morphology Comment Blood Urea Nitrogen 27 H Calcium Level 7.9 L Carbon Dioxide Level 26 Chloride Level 100 Cholesterol Level 95 L Cholesterol/HDL Ratio 2.2 Creatinine 0.62 Eosinophils # 0.0 Eosinophils % 0.8 Glucose Level 72 # HDL Cholesterol 43 Hematocrit 28.9 #L Hemoglobin 9.3 #L Hemoglobin A1c 5.1 LDL Cholesterol, Calculated 35 Lymphocytes # 0.7 L Lymphocytes % 13.9 L Magnesium Level 2.0 Mean Corpuscular Hemoglobin 22.9 L Mean Corpuscular Hemoglobin Concent 32.1 Mean Corpuscular Volume 71.5 L Mean Platelet Volume 7.8 Monocytes # 0.5 Monocytes % 8.7 Neutrophils # 4.0 Neutrophils % 76.3 Nucleated Red Blood Cells # 0.0 Nucleated Red Blood Cells % 0.0 Phosphorus Level 3.4 Platelet Count 353 # Potassium Level 3.9 Red Blood Count 4.04 #L Red Cell Distribution Width 15.8 H Sodium Level 137 Thyroid Stimulating Hormone (TSH) 3.200 Triglycerides Level 84 White Blood Count 5.2 # Medications Medications Current Medications Ondansetron HCl (Zofran Inj) 4 mg Q6H PRN IV NAUSEA AND/OR VOMITING; Start at 19:30 Acetaminophen (Tylenol Tab) 650 mg Q6H PRN PO PAIN LEVEL 1-3 OR FEVER; Start at 19:30 Acetaminophen/ Hydrocodone Bitart ([place] (5/325)) 1 tab Q6H PRN PO MODERATE PAIN LEVEL 4-6; Start 04/01/16 at 19:30 Morphine Sulfate (morphine) 2 mg Q4H PRN IV SEVERE PAIN LEVEL 7-10 Last administered on 04/02/16 16:06; Admin Dose 2 MG; Start 04/01/16 at 19:30 Docusate Sodium (Colace) 100 mg Q12H PRN PO CONSTIPATION; Start 04/01/16 at 19: 30 Magnesium Hydroxide (Milk Of Mag) 30 ml DAILY PRN PO CONSTIPATION; Start at 19:30 Sodium Biphosphate/ Sodium Phosphate (Fleet Enema) 133 ml DAILY PRN IN CONSTIPATION; Start 04/01/16 at 19:30 Pantoprazole (Protonix Iv) 40 mg DAILY@06 IV Last administered on 04/02/16 06: 41; Admin Dose 40 MG; Start 04/02/16 at 06:00 Heparin Sodium (Porcine) 5000 unit 5,000 unit Q12 SC Last administered on 08:57; Admin Dose 5,000 UNIT; Start 04/01/16 at 21:00 Sodium Chloride (1/2 NS) 1,000 ml @ 75 mls/hr [id number] IV Last administered on 04/02/16 08:55; Admin Dose 75 MLS/HR; Start 04/01/16 at 19:04 Lorazepam (Ativan) 0.5 mg Q6H PRN IV ANXIETY Last administered on 04/02/16 00: 56; Admin Dose 0.5 MG; Start 04/01/16 at 19:30 Hydralazine HCl (Apresoline) 10 mg Q6H PRN IV ELEVATED BLOOD PRESSURE; Start at 19:30 Nitroglycerin (Nitroglycerin (Sl Tab) 0.4 Mg) 1 tab Q5M PRN SL ANGINA; Start at 19:30 Influenza Virus Vaccine (Fluzone) 0.5 ml ONCE ONCE IM* ; Start 04/03/16 at 09:00 ; Stop 04/03/16 at 09:01 DOLORES CASTRO Apr 02, 2016 17:32
[2016-04-02] MEDS: PANTOPRAZOLE 40 MG INJ IV SCH (18:46)
[2016-04-02] MEDS: LACTULOSE 30ML CUP NGT SCH ×3 (18:47→23:22)
[2016-04-02 19:34] VITALS: BP 152/72; RESP 19
--- NOTE | 2016-04-02 21:21 | CONS ---
Date/Time of Note Date/Time of Note DATE: 04/02/16 TIME: 21:21 Assessment/Plan Assessment/Plan Chief Complaint/Hosp Course ABD PAIN, vomiting, and constipation- SBO VS ILEUS NPO NGT IVF SURG F-UP RECTAL ADENOCARCINOMA- POST chemo/xrt CEA-P NONCOMPLIANT WITH SURGICAL F-UP R/O RECURRENCE OF MALIGNANCY REASON FOR ILEUS VS SBO AGREE WITH restaging; include a liver CT and pelvic MRI SEVERE IRON DEFICIENCY WITH Microcytic, hypochromic anemia. POST IV IRON MONITOR BLOOD COUNT CLOSELY Distal esophagitis with gastritis. Continue proton pump inhibitors. HTN POOR COMPLIANCE Problems: Consultation Date/Type/Reason Admit Date/Time Apr 01, 2016 at 18:54 24 HR Interval Summary Free Text/Dictation ALL NOTED NO NEW EVENTS NPO/IVF NO N/V OVER NT Exam/Review of Systems Vital Signs Vitals Vital Signs Date Time Temp Pulse Resp B/P Pulse Ox O2 Delivery O2 Flow Rate FiO2 04/02/16 19:34 99.1 82 19 152/72 98 04/01/16 20:46 Room Air Intake and Output 04/01/16 04/01/16 04/02/16 15:00 23:00 07:00 Intake Total 900 ml Output Total 150 ml Balance 750 ml Exam Constitutional: alert, oriented, other (Thin) Psych: nl mood/affect Head: atraumatic Eyes: EOMI, nl conjunctiva, nl lids, nl sclera ENMT: mucosa pink and moist, nl external ears & nose, nl lips & teeth, nl nasal mucosa & septum Respiratory: normal air movement Cardiovascular: regular rate and rhythm Gastrointestinal: non-tender, soft Neurological: REAL TIME ANALYST II-XII intact Results Result Diagram: 04/02/16 0420 04/02/16 0420 Results 24 hrs Laboratory Tests Test 04/02/16 04:20 Anion Gap 15 Basophils # 0.0 Basophils % 0.3 Blood Morphology Comment Blood Urea Nitrogen 27 H Calcium Level 7.9 L Carbon Dioxide Level 26 Chloride Level 100 Cholesterol Level 95 L Cholesterol/HDL Ratio 2.2 Creatinine 0.62 Eosinophils # 0.0 Eosinophils % 0.8 Glucose Level 72 # HDL Cholesterol 43 Hematocrit 28.9 #L Hemoglobin 9.3 #L Hemoglobin A1c 5.1 LDL Cholesterol, Calculated 35 Lymphocytes # 0.7 L Lymphocytes % 13.9 L Magnesium Level 2.0 Mean Corpuscular Hemoglobin 22.9 L Mean Corpuscular Hemoglobin Concent 32.1 Mean Corpuscular Volume 71.5 L Mean Platelet Volume 7.8 Monocytes # 0.5 Monocytes % 8.7 Neutrophils # 4.0 Neutrophils % 76.3 Nucleated Red Blood Cells # 0.0 Nucleated Red Blood Cells % 0.0 Phosphorus Level 3.4 Platelet Count 353 # Potassium Level 3.9 Red Blood Count 4.04 #L Red Cell Distribution Width 15.8 H Sodium Level 137 Thyroid Stimulating Hormone (TSH) 3.200 Triglycerides Level 84 White Blood Count 5.2 # Medications Medications Current Medications Ondansetron HCl (Zofran Inj) 4 mg Q6H PRN IV NAUSEA AND/OR VOMITING; Start at 19:30 Acetaminophen (Tylenol Tab) 650 mg Q6H PRN PO PAIN LEVEL 1-3 OR FEVER; Start at 19:30 Acetaminophen/ Hydrocodone Bitart ([place] (5/325)) 1 tab Q6H PRN PO MODERATE PAIN LEVEL 4-6; Start 04/01/16 at 19:30 Morphine Sulfate (morphine) 2 mg Q4H PRN IV SEVERE PAIN LEVEL 7-10 Last administered on 04/02/16 20:16; Admin Dose 2 MG; Start 04/01/16 at 19:30 Docusate Sodium (Colace) 100 mg Q12H PRN PO CONSTIPATION; Start 04/01/16 at 19: 30 Magnesium Hydroxide (Milk Of Mag) 30 ml DAILY PRN PO CONSTIPATION; Start at 19:30 Sodium Biphosphate/ Sodium Phosphate (Fleet Enema) 133 ml DAILY PRN NE CONSTIPATION; Start 04/01/16 at 19:30 Heparin Sodium (Porcine) 5000 unit 5,000 unit Q12 SC Last administered on 20:16; Admin Dose 5,000 UNIT; Start 04/01/16 at 21:00 Sodium Chloride (1/2 NS) 1,000 ml @ 75 mls/hr [id number] IV Last administered on 04/02/16 20:16; Admin Dose 75 MLS/HR; Start 04/01/16 at 19:04 Lorazepam (Ativan) 0.5 mg Q6H PRN IV ANXIETY Last administered on 04/02/16 00: 56; Admin Dose 0.5 MG; Start 04/01/16 at 19:30 Hydralazine HCl (Apresoline) 10 mg Q6H PRN IV ELEVATED BLOOD PRESSURE; Start at 19:30 Nitroglycerin (Nitroglycerin (Sl Tab) 0.4 Mg) 1 tab Q5M PRN SL ANGINA; Start at 19:30 Influenza Virus Vaccine (Fluzone) 0.5 ml ONCE ONCE IM* ; Start 04/03/16 at 09:00 ; Stop 04/03/16 at 09:01 Lactulose (Enulose) 20 gm Q2 NGT Last administered on 04/02/16t 20:14; Admin Dose 20 GM; Start 04/02/16 at 19:00; Stop 04/03/16 at 01:01 Magnesium Citrate (Citroma) 300 ml ONCE ONCE PO ; Start 04/03/16 at 06:00; Stop 04/03/16 at 06:01 Pantoprazole (Protonix Iv) 40 mg BID@,18 IV Last administered on 04/02/16 18 :46; Admin Dose 40 MG; Start 04/02/16 at 18:00 JASMINA PALOMARES MD Apr 02, 2016 21:21
--- NOTE | 2016-04-02 21:25 | CONS ---
Date/Time of Note Date/Time of Note DATE: 04/02/16 TIME: 07:56 Assessment/Plan Assessment/Plan Additional Assessment/Plan [facility] SUBSEQUENT INPATIENT CONSULTATION NOTE ASSESSMENT AND PLAN: A very-pleasant 66-year-old gentleman, well known to me from prior encounter in June 2015 for treatment of rectal cancer, here with partial small bowel obstruction vs. ileus. Possibility of malignant stricture exists. Other non-malignant issues (e.g. radiation induced obstruction) also are possible. Patient was lost to surgical follow up after his chemotherapy and radiation. Would benefit from restaging. Discussed with patient and his and answered all questions. Patient and his appeared to understand and wish to proceed. With above assessment, I've recommended the followin. Gastroenterology consultation for upper and lower endoscopy as part of restaging 2. Keep in-house 3. Resuscitate and once more stable, to perform liver-dedicated triple-phase IV and oral contrast CT of abd/pelvis 4. Tumor markers 5. Oncology and radiation oncology consultations with Dr. Campa and Dr. Aranda Thank you very much for having me involved in the care of this very pleasant young gentleman and and his wonderful family. I will continue to follow him along with you closely and will be available to answer any questions at area code [phone]. TOTAL VISIT TIME: 45 minutes of which more than half was spent in [id number] discussion with the patient, discussions with family, as well as coordination of care between multiple physicians and providers. Disclaimer: Inadvertent spelling and grammatical errors are likely due to EHR/ dictation software use and do not reflect on the quality of delivered patient care. Also, please note that the electronic time recorded on this node does not necessarily reflect the actual time of the visit. PLACE OF SERVICE: [facility], sixth floor DATE OF ADMISSION: 04/01/2016 DATE OF CONSULTATION: 04/02/2016 REASON FOR CONSULTATION: Possible bowel obstruction with history of rectal cancer REFERRING PHYSICIAN: Ivon Cummings MD Dear Dr. Cummings: Thank you very much for asking me to remain involved as a surgical instrument technician in the management of Mr. Tomeka Jackson. Updated Clinical Summary: A very-pleasant 65-year-old gentleman with comorbidities including hypertension , who was initially admitted to [facility] through ED on 06/05/2015 with signs and symptoms consistent with anemia that eventually was shown to be a large, nearly obstructing mass approximately 12 cm from the anal verge up to the area of the rectosigmoid junction on colonoscopy 06/07/2015. Plan at that time was neoadjuvant treatment with chemoradiation followed by restaging and surgical resection. Patient underwent chemotherapy (Dr. Campa) and radiation therapy (Dr. Aranda) that ended reportedly Nov 2015. Patient represented to [facility] through ED with constipation, vomiting, abdominal distension and dilated loops of small intestine on 04/01/16. HISTORY OF PRESENT ILLNESS: The patient is a very pleasant 65-year-old gentleman well known to me from his initial visit at [facility] in June 2015 for rectal cancer. He was lost to follow up to me after leaving the hospital and reportedly underwent chemotherapy and radiation ending near Nov 2015. Patient reports trying to get in touch with my office several times and speaking with my office staff, but internal checks show no documentation of his phone calls and no recollection from the staff about taking to the patient. He was admitted through the ED on 04/01/16 with constipation and vomiting. A few weeks duration. No blood. 5-10 lb weight loss in the last few months. Today, I had a chance to visit with the patient and do a complete H&P. I also gathered some of my information through a careful review of the available data. Patient does not report any hematemesis or blood in the urine. Last bowel movement was a week ago as well as flatus. No reported chronic issues with constipation or diarrhea in the past. No changes in hearing or vision, difficulty with breathing or swallowing, prior cardiopulmonary disease new skin rashes, joint pain, musculoskeletal disease, neurologic, psychiatric, or psychologic problems. Patient described no sig abd pain. At my visit, the patient did not have any significant pain complaints. Comorbidity List: 1. Rectal malignancy, s/p chemotherapy and radiation June to Nov 2015 2. Hypertension 3. Cachexia 4. Colonoscopy June 2015 ALLERGIES: NO KNOWN DRUG ALLERGIES MEDICATIONS None SOCIAL HISTORY: The patient lives with family. + Tob history (every day smoker , cigars); occasional ETOH; - IVDU FAMILY HISTORY: Father with diabetes. There are no other significant medical, surgical or oncologic issues in the family as reported by the patient or reflected in the chart. REVIEW OF SYSTEMS: Other than above mentioned, there are no pertinent positives or negatives on a complete 14 point review of systems. PHYSICAL EXAMINATION GENERAL: The patient appears to be a very pleasant gentleman of ([place]) descent lying in bed, appearing stated age and otherwise in no acute distress. BMI: 15.8 (previously 21.June) VITAL SIGNS: AVSS (please also see below) HEENT: Normocephalic and atraumatic. Extraocular muscles and hearing are grossly intact bilaterally and symmetrically. Sclerae are nonicteric. Oral cavity is clear; oral mucosa appear to be pink and moist. Dentition: fair. NECK: Supple. There is no lymphadenopathy or JVD. There is no submental, submandibular or supraclavicular lymphadenopathy. CHEST: Rises symmetrically with each breath; patient is breathing comfortably. There are no audible wheezes, rales or rhonchi on the gross exam. HEART: Pulse is regular and palpable on the right wrist. Capillary refill is normal. Carotid pulses are palpable bilaterally and symmetrically in the neck. EXTREMITIES: Lower extremities contain no pitting edema around the ankles bilaterally and symmetrically. ABDOMEN: Abdomen is soft, nontender and minimally distended. No evidence of ascites, organomegaly, caput medusae, engorged subcutaneous veins, or other abnormalities. There are no peritoneal signs or guarding. SKIN: Appears to be pink and feels warm to touch. NEUROLOGIC: Awake, alert, and follows commands appropriately. LABORATORY DATA: See below IMAGING: See electronic chart. Please note that I've personally reviewed all pertinent available images and I agree in general with their overall reported findings. 04/01/16 Abd/pelvic CT IMPRESSION: 1. Since the previous CT of 03/14/2016, there has been interval increased gaseous distension and organization of multiple segments of small bowel but there is again stool seen throughout the colon. These findings are most suggestive of a worsening severe ileus than bowel obstruction. The vermiform appendix is not discretely identified. 2. There is again no evidence of urinary outflow obstruction or ureterolithiasis. A 1.2 cm cyst is seen within the medial mid pole of the left kidney and a 2.3 cm cyst is again seen extend posteriorly off the superior pole of the left kidney. A 2 mm nonobstructing nephrolith is seen in the superior pole left kidney. The bladder is suboptimally distended giving the wall thickened appearance and the prostate is mildly prominent. 3. Slight interval increase to the small amount of free intraperitoneal fluid. Again no free air is evident. 4. Atherosclerotic vascular changes are again evident. Consultation Date/Type/Reason Admit Date/Time Apr 01, 2016 at 18:54 Initial Consult Date Type of Consultation: Gastroenterology Exam/Review of Systems Vital Signs Vitals Vital Signs Date Time Temp Pulse Resp B/P Pulse Ox O2 Delivery O2 Flow Rate FiO2 04/02/16 19:34 99.1 82 19 152/72 98 04/01/16 20:46 Room Air Intake and Output 04/01/16 04/01/16 04/02/16 15:00 23:00 07:00 Intake Total 900 ml Output Total 150 ml Balance 750 ml Results Result Diagram: 04/02/16 0420 04/02/16 0420 Results 24 hrs Laboratory Tests Test 04/02/16 04:20 Anion Gap 15 Basophils # 0.0 Basophils % 0.3 Blood Morphology Comment Blood Urea Nitrogen 27 H Calcium Level 7.9 L Carbon Dioxide Level 26 Chloride Level 100 Cholesterol Level 95 L Cholesterol/HDL Ratio 2.2 Creatinine 0.62 Eosinophils # 0.0 Eosinophils % 0.8 Glucose Level 72 # HDL Cholesterol 43 Hematocrit 28.9 #L Hemoglobin 9.3 #L Hemoglobin A1c 5.1 LDL Cholesterol, Calculated 35 Lymphocytes # 0.7 L Lymphocytes % 13.9 L Magnesium Level 2.0 Mean Corpuscular Hemoglobin 22.9 L Mean Corpuscular Hemoglobin Concent 32.1 Mean Corpuscular Volume 71.5 L Mean Platelet Volume 7.8 Monocytes # 0.5 Monocytes % 8.7 Neutrophils # 4.0 Neutrophils % 76.3 Nucleated Red Blood Cells # 0.0 Nucleated Red Blood Cells % 0.0 Phosphorus Level 3.4 Platelet Count 353 # Potassium Level 3.9 Red Blood Count 4.04 #L Red Cell Distribution Width 15.8 H Sodium Level 137 Thyroid Stimulating Hormone (TSH) 3.200 Triglycerides Level 84 White Blood Count 5.2 # Medications Medications Current Medications Ondansetron HCl (Zofran Inj) 4 mg Q6H PRN IV NAUSEA AND/OR VOMITING; Start at 19:30 Acetaminophen (Tylenol Tab) 650 mg Q6H PRN PO PAIN LEVEL 1-3 OR FEVER; Start at 19:30 Acetaminophen/ Hydrocodone Bitart ([place] (5/325)) 1 tab Q6H PRN PO MODERATE PAIN LEVEL 4-6; Start 04/01/16 at 19:30 Morphine Sulfate (morphine) 2 mg Q4H PRN IV SEVERE PAIN LEVEL 7-10 Last administered on 04/02/16 16:06; Admin Dose 2 MG; Start 04/01/16 at 19:30 Docusate Sodium (Colace) 100 mg Q12H PRN PO CONSTIPATION; Start 04/01/16 at 19: 30 Magnesium Hydroxide (Milk Of Mag) 30 ml DAILY PRN PO CONSTIPATION; Start at 19:30 Sodium Biphosphate/ Sodium Phosphate (Fleet Enema) 133 ml DAILY PRN [place] CONSTIPATION; Start 04/01/16 at 19:30 Heparin Sodium (Porcine) 5000 unit 5,000 unit Q12 SC Last administered on 08:57; Admin Dose 5,000 UNIT; Start 04/01/16 at 21:00 Sodium Chloride (1/2 NS) 1,000 ml @ 75 mls/hr [id number] IV Last administered on 04/02/16 08:55; Admin Dose 75 MLS/HR; Start 04/01/16 at 19:04 Lorazepam (Ativan) 0.5 mg Q6H PRN IV ANXIETY Last administered on 04/02/16 00: 56; Admin Dose 0.5 MG; Start 04/01/16 at 19:30 Hydralazine HCl (Apresoline) 10 mg Q6H PRN IV ELEVATED BLOOD PRESSURE; Start at 19:30 Nitroglycerin (Nitroglycerin (Sl Tab) 0.4 Mg) 1 tab Q5M PRN SL ANGINA; Start at 19:30 Influenza Virus Vaccine (Fluzone) 0.5 ml ONCE ONCE IM* ; Start 04/03/16 at 09:00 ; Stop 04/03/16 at 09:01 Lactulose (Enulose) 20 gm Q2 NGT Last administered on 04/02/16 18:47; Admin Dose 20 GM; Start 04/02/16 at 19:00; Stop 04/03/16 at 01:01 Magnesium Citrate (Citroma) 300 ml ONCE ONCE PO ; Start 04/03/16 at 06:00; Stop 04/03/16 at 06:01 Pantoprazole (Protonix Iv) 40 mg BID@18 IV Last administered on 04/02/16t 18 :46; Admin Dose 40 MG; Start 04/02/16 at 18:00 DIVINE BEY M.D. Apr 02, 2016 21:21
[2016-04-02] MEDS ORDERED: morphine 4 MG/ML VIAL IV PRN (22:00)
[2016-04-02] MEDS: METOCLOPRAMIDE 10 MG INJ IV SCH (23:22)
[2016-04-03] VITALS (15 sets, daily range): BP systolic 114–158; BP diastolic 60–82; PULSE 100–124; RESP 10–34
[2016-04-03] MEDS: LACTULOSE 30ML CUP NGT SCH (01:32)
[2016-04-03] MEDS: METOCLOPRAMIDE 10 MG INJ IV SCH ×4 (05:19→23:32)
[2016-04-03] MEDS: PANTOPRAZOLE 40 MG INJ IV SCH ×2 (05:19→20:38)
[2016-04-03 05:35] LABS: BASOPHILS % 0.1 % (0.0-2.0); EOSINOPHILS % 0.5 % (0.0-7.0); HEMATOCRIT 34.4 % (42.0-52.0); LYMPHOCYTES # 0.8 10^3/ul (0.8-2.9); LYMPHOCYTES % 11.1 % (15.0-51.0); MEAN CORPUSCULAR VOLUME 71.7 fl (82.0-101.0); MEAN PLATELET VOLUME 7.6 fl (7.4-10.4); MONOCYTE # 0.5 10^3/ul (0.3-0.9); NEUTROPHIL # 5.9 10^3/ul (1.6-7.5); NEUTROPHILS % 81.3 % (39.0-77.0); PLATELET COUNT 366 10^3/UL (140-440); RED BLOOD COUNT 4.79 10^6/ul (4.70-6.10); UNCORRECTED WBC 7.2 10^3/ul (4.8-10.8); WHITE BLOOD COUNT 7.2 10^3/ul (4.8-10.8)
[2016-04-03 05:43] LABS: INR 1.05; PROTIME 13.7 Sec (12.2-14.2); PT RATIO 1.1
[2016-04-03 05:44] LABS: PARTIAL THROMBOPLASTIN TIME 30.8 Sec (25.0-35.0); POTASSIUM 3.6 mmol/L (3.5-5.1)
[2016-04-03 05:46] LABS: CREATININE 0.63 mg/dl (0.61-1.24)
[2016-04-03 05:47] LABS: CALCIUM 8.1 mg/dl (8.4-10.2)
[2016-04-03 05:52] LABS: CONDITION 1; LH ANALYZER COMMENTS 1
[2016-04-03] MEDS ORDERED: MAGNESIUM CITRATE 300 ML BTL PO ONE (06:00)
[2016-04-03] MEDS ORDERED: SUCCINYLCHOLINE CHLORIDE 100 MG/5 ML SYG IV ONE (07:00)
[2016-04-03] MEDS ORDERED: INFLUENZA VIRUS VACCINE 0.5 ML (DISPENSING) IM* ONE (09:00)
[2016-04-03] MEDS: morphine 2 MG INJ IV PRN (09:20)
[2016-04-03] MEDS: ONDANSETRON 4 MG INJ IV PRN (09:20)
[2016-04-03] MEDS: HEPARIN 5,000 UNIT/0.5 ML SYG SC SCH ×2 (09:24→20:40)
[2016-04-03] MEDS: SOD CHLORIDE 0.45% 1,000 ML IV SCH ×2 (09:32→23:32)
--- NOTE | 2016-04-03 09:42 | CONS ---
Date/Time of Note Date/Time of Note DATE: 04/03/16 TIME: 09:41 Assessment/Plan Assessment/Plan Chief Complaint/Hosp Course ABD PAIN, vomiting, and constipation- SBO VS ILEUS NPO NGT IVF SURG F-UP RECTAL ADENOCARCINOMA- POST chemo/xrt CEA-N NONCOMPLIANT WITH SURGICAL F-UP R/O RECURRENCE OF MALIGNANCY REASON FOR ILEUS VS SBO AGREE WITH restaging; include a liver CT and pelvic MRI SEVERE IRON DEFICIENCY WITH Microcytic, hypochromic anemia. POST IV IRON MONITOR BLOOD COUNT CLOSELY Distal esophagitis with gastritis. Continue proton pump inhibitors. HTN POOR COMPLIANCE Problems: Consultation Date/Type/Reason Admit Date/Time Apr 01, 2016 at 18:54 24 HR Interval Summary Free Text/Dictation ALL NOTED FOR COLONOSCOPY TODAY NG-IN SEEN BY SURGEON Exam/Review of Systems Vital Signs Vitals Vital Signs Date Time Temp Pulse Resp B/P Pulse Ox O2 Delivery O2 Flow Rate FiO2 04/03/16 07:15 99.2 104 16 158/82 98 04/01/16 20:46 Room Air Intake and Output 04/02/16 04/02/16 04/03/16 15:00 23:00 07:00 Intake Total 900 ml 960 ml Output Total 1000 ml 100 ml Balance -100 ml 860 ml Results Result Diagram: 04/03/16 0450 04/03/16 0450 Results 24 hrs Laboratory Tests Test 04/03/16 04:50 Activated Partial Thromboplast Time 30.8 Anion Gap 18 H Basophils # 0.0 Basophils % 0.1 Blood Morphology Comment Blood Urea Nitrogen 19 Calcium Level 8.1 L Carbon Dioxide Level 24 Carcinoembryonic Antigen 1.1 Chloride Level 102 Creatinine 0.63 Eosinophils # 0.0 Eosinophils % 0.5 Glucose Level 61 #L Hematocrit 34.4 L Hemoglobin 11.0 L INR International Normalized Ratio 1.05 Lymphocytes # 0.8 Lymphocytes % 11.1 L Mean Corpuscular Hemoglobin 23.0 L Mean Corpuscular Hemoglobin Concent 32.0 Mean Corpuscular Volume 71.7 L Mean Platelet Volume 7.6 Monocytes # 0.5 Monocytes % 7.0 Neutrophils # 5.9 Neutrophils % 81.3 H Nucleated Red Blood Cells # 0.0 Nucleated Red Blood Cells % 0.0 Platelet Count 366 Potassium Level 3.6 Prothrombin Time 13.7 Prothrombin Time Ratio 1.1 Red Blood Count 4.79 Red Cell Distribution Width 16.0 H Sodium Level 140 White Blood Count 7.2 # Medications Medications Current Medications Ondansetron HCl (Zofran Inj) 4 mg Q6H PRN IV NAUSEA AND/OR VOMITING Last administered on 04/03/16 09:20; Admin Dose 4 MG; Start 04/01/16 at 19:30 Acetaminophen (Tylenol Tab) 650 mg Q6H PRN PO PAIN LEVEL 1-3 OR FEVER; Start at 19:30 Acetaminophen/ Hydrocodone Bitart ([place] (5/325)) 1 tab Q6H PRN PO MODERATE PAIN LEVEL 4-6; Start 04/01/16 at 19:30 Morphine Sulfate (morphine) 2 mg Q4H PRN IV SEVERE PAIN LEVEL 7-10 Last administered on 04/03/16 09:20; Admin Dose 2 MG; Start 04/01/16 at 19:30 Docusate Sodium (Colace) 100 mg Q12H PRN PO CONSTIPATION; Start 04/01/16 at 19: 30 Magnesium Hydroxide (Milk Of Mag) 30 ml DAILY PRN PO CONSTIPATION; Start at 19:30 Sodium Biphosphate/ Sodium Phosphate (Fleet Enema) 133 ml DAILY PRN [place] CONSTIPATION; Start 04/01/16 at 19:30 Heparin Sodium (Porcine) 5000 unit 5,000 unit Q12 SC Last administered on 09:24; Admin Dose 5,000 UNIT; Start 04/01/16 at 21:00 Sodium Chloride (1/2 NS) 1,000 ml @ 75 mls/hr [id number] IV Last administered on 04/03/16 09:32; Admin Dose 75 MLS/HR; Start 04/01/16 at 19:04 Lorazepam (Ativan) 0.5 mg Q6H PRN IV ANXIETY Last administered on 04/02/16 22: 16; Admin Dose 0.5 MG; Start 04/01/16 at 19:30 Hydralazine HCl (Apresoline) 10 mg Q6H PRN IV ELEVATED BLOOD PRESSURE; Start at 19:30 Nitroglycerin (Nitroglycerin (Sl Tab) 0.4 Mg) 1 tab Q5M PRN SL ANGINA; Start at 19:30 Pantoprazole (Protonix Iv) 40 mg BID@06,18 IV Last administered on 04/03/16 05: 19; Admin Dose 40 MG; Start 04/02/16 at 18:00 Morphine Sulfate (morphine) 4 mg Q4H PRN IV PAIN Last administered on 23:23; Admin Dose 4 MG; Start 04/02/16 at 22:00 Metoclopramide HCl (Reglan) 10 mg Q6 IV Last administered on 04/03/16 05:19; Admin Dose 10 MG; Start 04/03/16 at 00:00 JASMINA PALOMARES MD Apr 03, 2016 09:42
[2016-04-03] MEDS: LORAZEPAM 2 MG INJ IV PRN (12:14)
--- NOTE | 2016-04-03 14:24 | PN ---
Date/Time of Note Date/Time of Note DATE: 04/03/16 TIME: 14:15 Assessment/Plan VTE Prophylaxis VTE Prophylaxis Intervention: heparin Lines/Catheters IV Catheter Type (from Nrsg): Peripheral IV Assessment/Plan Chief Complaint/Hosp Course Assessment and plan 1. Abdominal pain likely secondary to ileus. Surgeon to follow. GI following. Plan for EGD 2. 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 Cont with oncologist cassie 3. History of distal esophagitis and distress. We'll continue on PPI 4. Iron deficiency anemia. We'll resume patient's iron supplement 5. History of hypertension. We'll continue on antihypertensives and adjust as needed 6. Recent history of UTI. Continue on Cipro Disposition and plan: plan for EGD. will follow up Discussed plan of care with Dr. Roberts Problems: Subjective 24 Hr Interval Summary Free Text/Dictation Reports having a little bit more abdominal discomfort at this time Exam/Review of Systems Vital Signs Vitals Vital Signs Date Time Temp Pulse Resp B/P Pulse Ox O2 Delivery O2 Flow Rate FiO2 04/03/16 07:15 99.2 104 16 158/82 98 04/01/16 20:46 Room Air Intake and Output 04/02/16 04/02/16 04/03/16 15:00 23:00 07:00 Intake Total 900 ml 960 ml Output Total 1000 ml 100 ml Balance -100 ml 860 ml Exam General: No acute signs or symptoms of distress Eyes: pupils equal round, Anicteric sclera Neck: Supple nontender, no JVD Cardiac: S1, S2 auscultated, regular rhythm and rate Pulmonary: No coarse rhonchi or breathing auscultated GI: Abdomen soft nontender nondistended, bowel sounds active, NG tube in place Extremities: No edema bilateral lower extremities Skin: Clean dry and intact Neurologic: Alert to person place and time and situation Results Result Diagram: 04/03/16 0450 04/03/16 0450 Results 24 hrs Laboratory Tests Test 04/03/16 04:50 Activated Partial Thromboplast Time 30.8 Anion Gap 18 H Basophils # 0.0 Basophils % 0.1 Blood Morphology Comment Blood Urea Nitrogen 19 Calcium Level 8.1 L Carbon Dioxide Level 24 Carcinoembryonic Antigen 1.1 Chloride Level 102 Creatinine 0.63 Eosinophils # 0.0 Eosinophils % 0.5 Glucose Level 61 #L Hematocrit 34.4 L Hemoglobin 11.0 L INR International Normalized Ratio 1.05 Lymphocytes # 0.8 Lymphocytes % 11.1 L Mean Corpuscular Hemoglobin 23.0 L Mean Corpuscular Hemoglobin Concent 32.0 Mean Corpuscular Volume 71.7 L Mean Platelet Volume 7.6 Monocytes # 0.5 Monocytes % 7.0 Neutrophils # 5.9 Neutrophils % 81.3 H Nucleated Red Blood Cells # 0.0 Nucleated Red Blood Cells % 0.0 Platelet Count 366 Potassium Level 3.6 Prothrombin Time 13.7 Prothrombin Time Ratio 1.1 Red Blood Count 4.79 Red Cell Distribution Width 16.0 H Sodium Level 140 White Blood Count 7.2 # Medications Medications Current Medications Ondansetron HCl (Zofran Inj) 4 mg Q6H PRN IV NAUSEA AND/OR VOMITING Last administered on 04/03/16 09:20; Admin Dose 4 MG; Start 04/01/16 at 19:30 Acetaminophen (Tylenol Tab) 650 mg Q6H PRN PO PAIN LEVEL 1-3 OR FEVER; Start at 19:30 Acetaminophen/ Hydrocodone Bitart ([place] (5/325)) 1 tab Q6H PRN PO MODERATE PAIN LEVEL 4-6; Start 04/01/16 at 19:30 Morphine Sulfate (morphine) 2 mg Q4H PRN IV SEVERE PAIN LEVEL 7-10 Last administered on 04/03/16 09:20; Admin Dose 2 MG; Start 04/01/16 at 19:30 Docusate Sodium (Colace) 100 mg Q12H PRN PO CONSTIPATION; Start 04/01/16 at 19: 30 Magnesium Hydroxide (Milk Of Mag) 30 ml DAILY PRN PO CONSTIPATION; Start at 19:30 Sodium Biphosphate/ Sodium Phosphate (Fleet Enema) 133 ml DAILY PRN [place] CONSTIPATION Last administered on 04/03/16 09:00; Admin Dose 133 ML; Start 04/01 at 19:30 Heparin Sodium (Porcine) 5000 unit 5,000 unit Q12 SC Last administered on 09:24; Admin Dose 5,000 UNIT; Start 04/01/16 at 21:00 Sodium Chloride (1/2 NS) 1,000 ml @ 75 mls/hr [id number] IV Last administered on 04/03/16 09:32; Admin Dose 75 MLS/HR; Start 04/01/16 at 19:04 Lorazepam (Ativan) 0.5 mg Q6H PRN IV ANXIETY Last administered on 04/03/16 12: 14; Admin Dose 0.5 MG; Start 04/01/16 at 19:30 Hydralazine HCl (Apresoline) 10 mg Q6H PRN IV ELEVATED BLOOD PRESSURE; Start at 19:30 Nitroglycerin (Nitroglycerin (Sl Tab) 0.4 Mg) 1 tab Q5M PRN SL ANGINA; Start at 19:30 Pantoprazole (Protonix Iv) 40 mg BID@06,18 IV Last administered on 04/03/16 05: 19; Admin Dose 40 MG; Start 04/02/16 at 18:00 Morphine Sulfate (morphine) 4 mg Q4H PRN IV PAIN Last administered on 23:23; Admin Dose 4 MG; Start 04/02/16 at 22:00 Metoclopramide HCl (Reglan) 10 mg Q6 IV Last administered on 04/03/16 12:14; Admin Dose 10 MG; Start 04/03/16 at 00:00 GLORY CHEW Apr 03, 2016 14:24
[2016-04-03] MEDS ORDERED: KETAMINE 500 MG INJ ONE (18:02)
[2016-04-03] MEDS ORDERED: PROPOFOL 20 ML ONE (18:09)
[2016-04-03] MEDS ORDERED: PHENYLephrine (100 MCG/ML) 5ML SYG ONE ×2 (18:09→18:28)
[2016-04-03] MEDS ORDERED: MIDAZOLAM 1 MG/ML 2 ML INJ ONE (18:11)
[2016-04-03] MEDS ORDERED: ESMOLOL 10 ML ONE (18:23)
[2016-04-03] MEDS ORDERED: DEXAMETHASONE 4 MG/ML 1 ML INJ ONE (18:39)
[2016-04-03] MEDS ORDERED: ONDANSETRON 4 MG INJ ONE (18:39)
--- NOTE | 2016-04-03 20:46 | PN ---
Date/Time of Note Date/Time of Note DATE: 04/03/16 TIME: 18:43 Assessment/Plan Lines/Catheters IV Catheter Type (from Nrs): Peripheral IV Assessment/Plan Assessment/Plan [facility] Progress Note Date of Service: 04/03/16 Today's Impression & Plan: Stable per report. Downstairs for colonoscopy. Spoke with his and answered all questions. With above assessment, I've recommended the following for today: 1. Continue with restaging; include a liver CT and pelvic MRI 2. Nutritional support 3. Cont aggressive care including strong consideration for LAR with primary anastomosis and temporary diverting loop ileostomy Thank you again for your great care of this very pleasant patient and wonderful family. If there are any questions, please feel free to call me at [phone]. TOTAL VISIT TIME: 20 minutes of which more than half was spent in [id number] discussion with the patient, possibly including family, as well as coordination of care between multiple physicians and providers. Disclaimer: Inadvertent spelling or grammatical errors are likely due to EHR/ dictation software use and do not reflect on the overall quality of patient care. Updated Clinical Summary: A very-pleasant 65-year-old gentleman with comorbidities including hypertension , who was initially admitted to [facility] through ED on 06/05/2015 with signs and symptoms consistent with anemia that eventually was shown to be a large, nearly obstructing mass approximately 12 cm from the anal verge up to the area of the rectosigmoid junction on colonoscopy 06/07/2015. Plan at that time was neoadjuvant treatment with chemoradiation followed by restaging and surgical resection. Patient underwent chemotherapy (Dr. Campa) and radiation therapy (Dr. Aranda) that ended reportedly Nov 2015. Patient represented to [facility] through ED with constipation, vomiting, abdominal distension and dilated loops of small intestine on 04/01/16. Comorbidity List: 1. Rectal malignancy, s/p chemotherapy and radiation June to Nov 2015 2. Hypertension 3. Cachexia 4. Colonoscopy June 2015 Subjective: No reported major events or complaints; no major reported abd pain and under control with medications; no n/v/d; no sob or cp; - flatus; - BM and normal; + activity Objective: Vitals: See below Exam: Patient not in room. Exam/Review of Systems Vital Signs Vitals Vital Signs Date Time Temp Pulse Resp B/P Pulse Ox O2 Delivery O2 Flow Rate FiO2 04/03/16 20:28 98.7 110 18 157/68 96 04/03/16 19:49 Nasal Cannula Intake and Output 04/02/16 04/02/16 04/03/16 15:00 23:00 07:00 Intake Total 900 ml 960 ml Output Total 1000 ml 100 ml Balance -100 ml 860 ml Results Result Diagram: 04/03/16 0450 04/03/16 0450 DIVINE BEY M.D. Apr 03, 2016 20:46
[2016-04-03] MEDS: FLUCONAZOLE 100 MG TAB PO SCH (20:49)
--- NOTE | 2016-04-03 21:43 | CONS ---
Date/Time of Note Date/Time of Note DATE: 04/03/16 TIME: 21:30 Assessment/Plan Assessment/Plan Chief Complaint/Hosp Course ABD PAIN, vomiting, and constipation- SBO VS ILEUS NPO NGT IVF SURG EVAL RECTAL ADENOCARCINOMA- POST chemo/xrt CHECK CEA REVIEW CTs R/O RECURRENCE OF MALIGNANCY REASON FOR ILEUS VS SBO SEVERE IRON DEFICIENCY WITH Microcytic, hypochromic anemia. POST IV IRON MONITOR BLOOD COUNT CLOSELY Distal esophagitis with gastritis. Continue proton pump inhibitors. HTN POOR COMPLIANCE Problems: Consultation Date/Type/Reason Admit Date/Time Apr 01, 2016 at 18:54 Date of Consultation: Apr 01, 2016 Type of Consultation: HEMEON Reason for Consultation RECTAL CANCER Referring Provider: LINDA WALDROP MD Hx of Present Illness The patient is a 65-year-old male with a history of rectal cancer, status post chemo/XRT, hypertension, and a recently diagnosed UTI on Cipro who presented to the emergency department with abdominal pain, vomiting, and constipation of 3 days' duration. He denied any fever, chills, chest pain, or shortness of breath. CT abdomen and pelvis was done which shows, as compared to the CT that was done 2 weeks ago, there has been interval increased gaseous distention and organization of multiple segments of small bowel with stools throughout the colon, these findings most suggestive of worsening severe ileus than bowel obstruction. Also noted was a distended bladder with thickened wall and slight interval increase to the small amount of free intraperitoneal fluid as well as a 1.2 cm cyst within the left kidney and 2.3 cm cyst posteriorly in the left kidney. An NG tube had been placed, and the patient admitted for further evaluation. Surgical consultation has been placed. REVIEW OF SYSTEMS: A 12-point review of systems negative except as mentioned in the HPI. PAST MEDICAL HISTORY: As per HPI. SOCIAL HISTORY: Denied a history of tobacco, alcohol, or illicit drug use. ALLERGIES: NO KNOWN DRUG ALLERGIES. HOME MEDICATIONS: Ciprofloxacin. Psychological: nl mood/affect Past Medical History Medical History: GI bleed, other (Rectal cancer) Past Surgical History Past Surgical Hx: no surgical history Social History Alcohol Use: rarely Smoking Status: Former smoker Exam/Review of Systems Vital Signs Vitals Vital Signs Date Time Temp Pulse Resp B/P Pulse Ox O2 Delivery O2 Flow Rate FiO2 04/03/16 21:02 Nasal Cannula 2 04/03/16 20:28 98.7 110 18 157/68 96 Intake and Output 04/02/16 04/02/16 04/03/16 15:00 23:00 07:00 Intake Total 900 ml 960 ml Output Total 1000 ml 100 ml Balance -100 ml 860 ml Exam PHYSICAL EXAMINATION: VITAL SIGNS: Stable. GENERAL: The patient in mild discomfort due to the NG tube, otherwise stable. HEENT: No obvious head deformity. NG tube in place to low intermittent suction. His pupils are reactive to light. CARDIOVASCULAR: Regular rate and rhythm. No extra sounds. LUNGS: Clear. ABDOMEN: Soft, nondistended. There is discomfort to palpation diffusely with no guarding or rigidity. EXTREMITIES: No edema. NEUROLOGIC: No focal deficit. LABORATORY: Pertinent positives as mentioned in the HPI. IMAGING: CT abdomen and pelvis with results as mentioned in the HPI. Results Result Diagram: 04/03/16 0450 04/03/16 0450 Results 24 hrs Laboratory Tests Test 04/03/16 04:50 Activated Partial Thromboplast Time 30.8 Anion Gap 18 H Basophils # 0.0 Basophils % 0.1 Blood Morphology Comment Blood Urea Nitrogen 19 Calcium Level 8.1 L Carbon Dioxide Level 24 Carcinoembryonic Antigen 1.1 Chloride Level 102 Creatinine 0.63 Eosinophils # 0.0 Eosinophils % 0.5 Glucose Level 61 #L Hematocrit 34.4 L Hemoglobin 11.0 L INR International Normalized Ratio 1.05 Lymphocytes # 0.8 Lymphocytes % 11.1 L Mean Corpuscular Hemoglobin 23.0 L Mean Corpuscular Hemoglobin Concent 32.0 Mean Corpuscular Volume 71.7 L Mean Platelet Volume 7.6 Monocytes # 0.5 Monocytes % 7.0 Neutrophils # 5.9 Neutrophils % 81.3 H Nucleated Red Blood Cells # 0.0 Nucleated Red Blood Cells % 0.0 Platelet Count 366 Potassium Level 3.6 Prothrombin Time 13.7 Prothrombin Time Ratio 1.1 Red Blood Count 4.79 Red Cell Distribution Width 16.0 H Sodium Level 140 White Blood Count 7.2 # Medications Medications Current Medications Ondansetron HCl (Zofran Inj) 4 mg Q6H PRN IV NAUSEA AND/OR VOMITING Last administered on 04/03/16t 09:20; Admin Dose 4 MG; Start 04/01/16 at 19:30 Acetaminophen (Tylenol Tab) 650 mg Q6H PRN PO PAIN LEVEL 1-3 OR FEVER Last administered on 04/03/16 19:12; Admin Dose 650 MG; Start 04/01/16 at 19:30 Acetaminophen/ Hydrocodone Bitart ([place] (5/325)) 1 tab Q6H PRN PO MODERATE PAIN LEVEL 4-6; Start 04/01/16 at 19:30 Morphine Sulfate (morphine) 2 mg Q4H PRN IV SEVERE PAIN LEVEL 7-10 Last administered on 04/03/16 09:20; Admin Dose 2 MG; Start 04/01/16 at 19:30 Docusate Sodium (Colace) 100 mg Q12H PRN PO CONSTIPATION; Start 04/01/16 at 19: 30 Magnesium Hydroxide (Milk Of Mag) 30 ml DAILY PRN PO CONSTIPATION; Start at 19:30 Sodium Biphosphate/ Sodium Phosphate (Fleet Enema) 133 ml DAILY PRN [place] CONSTIPATION Last administered on 04/03/16 09:00; Admin Dose 133 ML; Start 04/01 at 19:30 Heparin Sodium (Porcine) 5000 unit 5,000 unit Q12 SC Last administered on 20:40; Admin Dose 5,000 UNIT; Start 04/01/16 at 21:00 Sodium Chloride (1/2 NS) 1,000 ml @ 75 mls/hr [id number] IV Last administered on 04/03/16 09:32; Admin Dose 75 MLS/HR; Start 04/01/16 at 19:04 Lorazepam (Ativan) 0.5 mg Q6H PRN IV ANXIETY Last administered on 04/03/16 12: 14; Admin Dose 0.5 MG; Start 04/01/16 at 19:30 Hydralazine HCl (Apresoline) 10 mg Q6H PRN IV ELEVATED BLOOD PRESSURE; Start at 19:30 Nitroglycerin (Nitroglycerin (Sl Tab) 0.4 Mg) 1 tab Q5M PRN SL ANGINA; Start at 19:30 Pantoprazole (Protonix Iv) 40 mg BID@06,18 IV Last administered on 04/03/16 20: 38; Admin Dose 40 MG; Start 04/02/16 at 18:00 Morphine Sulfate (morphine) 4 mg Q4H PRN IV PAIN Last administered on 23:23; Admin Dose 4 MG; Start 04/02/16 at 22:00 Metoclopramide HCl (Reglan) 10 mg Q6 IV Last administered on 04/03/16 19:12; Admin Dose 10 MG; Start 04/03/16 at 00:00 Hydromorphone HCl (Dilaudid) 0.5 mg Q4H PRN IV PAIN; Start 04/03/16 at 14:30 Fluconazole (Diflucan) 100 mg DAILY PO Last administered on 04/03/16 20:49; Admin Dose 100 MG; Start 04/03/16 at 19:30 Procedures Procedures [place] [id number] Radiology Main Line: [phone] DIAGNOSTIC IMAGING REPORT Patient: CARA WILKINSON : 1950 Age: 65 Sex: M MR #: [id number] DOS: 04/01/16 [facility] Ordering MD: MARSHAL BOLAÑOS MD Location: E/R Room/Bed: PROCEDURE: CT Abdomen and Pelvis without contrast CLINICAL INDICATION: Pain TECHNIQUE: Transaxial images were obtained through the abdomen and pelvis on a multi-slice scanner without the intravenous contrast administration. No oral contrast had previously been given. Sagittal and coronal re-formations were subsequently reconstructed. One or more of the following dose reduction techniques were used: - Automated exposure control. - Adjustment of the mA and/or kV according to patient size. - Use of iterative reconstruction technique. Radiation dose: CTDIvol = 5.34 mGy; DLP = 317.53 mGy-cm. COMPARISON: 03/14/2016 FINDINGS: Lung bases: The visualized lung bases appear unremarkable. Liver: Normal in size and in attenuation. There is no focal lesion. Gallbladder: The gallbladder is somewhat contracted but no stones are identified and the wall does not appear thickened. Bile ducts: The intra and extrahepatic bile ducts are normal in caliber. Pancreas: Appears normal with no mass or inflammation evident. Spleen: Normal in size with no focal lesion. Adrenals: Normal with no mass identified. Kidneys, ureters and bladder: A 1.2 cm hypodensity is seen within the anterior medial mid pole of the left kidney and an exophytic 2.3 cm hypodensity is seen extend off the posterior lateral superior pole of the left kidney compatible with cysts. A 2 mm nonobstructing nephrolith is again seen within the superior pole left kidney. The kidneys are otherwise unremarkable without hydronephrosis. The ureters are unremarkable. The bladder is suboptimally distended giving the wall thickened appearance. Reproductive organs: The prostate is mildly prominent. Stomach and bowel: There is increasing air and fluid distension and organization of multiple segments of small bowel but there is also stool seen throughout the colon which is moderately distended. The pattern is therefore most compatible with a severe ileus. The stomach appears unremarkable. Appendix: The vermiform appendix is not discretely identified. Peritoneum: There is a small amount of free intraperitoneal fluid primarily within the right subphrenic space and bilateral pericolic gutters as well as within the pelvis. No free air is identified. Aorta: There is atherosclerotic vascular calcification but no abdominal aortic aneurysm is evident. IVC: Unremarkable. Lymph nodes: No pathologically enlarged nodes are identified. Osseous structures: Moderate diffuse degenerative endplate changes are seen to the spine. IMPRESSION: 1. Since the previous CT of 03/14/2016, there has been interval increased gaseous distension and organization of multiple segments of small bowel but there is again stool seen throughout the colon. These findings are most suggestive of a worsening severe ileus than bowel obstruction. The vermiform appendix is not discretely identified. 2. There is again no evidence of urinary outflow obstruction or ureterolithiasis. A 1.2 cm cyst is seen within the medial mid pole of the left kidney and a 2.3 cm cyst is again seen extend posteriorly off the superior pole of the left kidney. A 2 mm nonobstructing nephrolith is seen in the superior pole left kidney. The bladder is suboptimally distended giving the wall thickened appearance and the prostate is mildly prominent. 3. Slight interval increase to the small amount of free intraperitoneal fluid. Again no free air is evident. 4. Atherosclerotic vascular changes are again evident. Physician Franky Date Time Electronically viewed and signed by Physician Franky on 04/01/2016 16:04 RH/ CC: MARSHAL BOLAÑOS MD, VERA M MD Apr 03, 2016 21:43
--- NOTE | 2016-04-03 22:44 | RADRPT ---
PROCEDURE: XR Abdomen CLINICAL INDICATION: Postop nausea vomiting TECHNIQUE: An AP supine radiograph of the abdomen was submitted. COMPARISON: CT scan of the abdomen and pelvis without contrast in 04/01/[address] demonstrated diffuse elongated air distended segments of small bowel but with stool distended colon and therefore most compatible with a severe ileus. FINDINGS: Elongated organized air distended segments of small bowel are again seen through the abdomen with st ool and air seen to the colon including the rectum. These findings are again suggestion of a severe ileus. No organomegaly or discrete mass is identified. No pathological calcification is identified. Mild degenerative spine changes are noted. IMPRESSION: 1. Although there are elongated organized air distended segments of small bowel, colon also remains distended with air and stool. This is therefore again most compatible with severe ileus. 2. Mild degenerative spine changes. Physician Franky Date Time Electronically viewed and signed by Physician Franky on 04/03/2016 22:43 /
[2016-04-04 00:05] VITALS: BP 129/66; RESP 18
--- NOTE | 2016-04-04 02:50 | GILP ---
DATE OF PROCEDURE: 04/03/2016 PROCEDURE: Colonoscopy with biopsies. BRIEF HISTORY AND INDICATIONS: The patient with history of colon cancer post-radiation and chemothe rapy, unfortunately, lost to followup. From the surgical point of view, he presents with ileus, pro bably partial bowel obstruction and a significant drop in hemoglobin and hematocrit as well as gener alized deterioration. PREMEDICATION: General anesthesia by anesthesiologist. TECHNIQUE: After informed consent with patient understanding the procedure, the patient was anesth etized, was placed in the left lateral decubitus. Digital rectal examination was performed, showing some narrowing, some stricturing of the anal sphincter which was easily dilated with the index fing er. Following this, the Olympus colonoscope was introduced. The preparation is poor, but it became evident that at approximately 15 cm, there was a very large obstructing mass, clearly malignant in nature. We attempted advancing the instrument into the proximal colon; this, however, proved not fe asible. Multiple biopsies were obtained. IMPRESSION Large obstructing mass, rectosigmoid at 15 cm. Biopsies obtained. PLAN: The case will be reviewed with the attending surgeon, Dr. Juárez, and further recommendations will depend on the patient's clinical course as well as review of biopsies. Dictated By: SHANNAN STEPHEN Conf#: [id number] DID#: [id number]
[2016-04-04] MEDS: HYDROmorphONE 1 MG/ML SYG IV PRN ×4 (04:22→21:25)
[2016-04-04] MEDS: METOCLOPRAMIDE 10 MG INJ IV SCH ×4 (05:41→23:32)
[2016-04-04] MEDS: PANTOPRAZOLE 40 MG INJ IV SCH ×2 (05:41→15:57)
[2016-04-04 06:47] LABS: TOTAL IRON BINDING CAPACITY 204 ug/dl (241-421)
[2016-04-04 06:50] LABS: IRON < 10 ug/dl (35-150)
[2016-04-04 07:35] LABS: BASOPHILS % 0.1 % (0.0-2.0); HEMATOCRIT 27.5 % (42.0-52.0); HEMOGLOBIN 8.9 g/dl (14.0-18.0); LYMPHOCYTES # 0.5 10^3/ul (0.8-2.9); LYMPHOCYTES % 7.3 % (15.0-51.0); MEAN CORPUSCULAR HEMOGLOBIN 22.8 pg (29.0-33.0); MEAN CORPUSCULAR HGB CONC 32.2 g/dl (32.0-37.0); MEAN CORPUSCULAR VOLUME 70.8 fl (82.0-101.0); MEAN PLATELET VOLUME 7.6 fl (7.4-10.4); MONOCYTE # 0.3 10^3/ul (0.3-0.9); MONOCYTES % 4.6 % (0.0-11.0); NEUTROPHIL # 5.9 10^3/ul (1.6-7.5); PLATELET COUNT 295 10^3/UL (140-440); RED BLOOD COUNT 3.89 10^6/ul (4.70-6.10); UNCORRECTED WBC 6.7 10^3/ul (4.8-10.8); WHITE BLOOD COUNT 6.7 10^3/ul (4.8-10.8)
[2016-04-04 07:39] LABS: CONDITION 1; LH ANALYZER COMMENTS 1
--- NOTE | 2016-04-04 07:44 | GILP ---
DATE OF PROCEDURE: PROCEDURE: Esophagogastroduodenoscopy with biopsies. SURGEON: Seamus Mason MD BRIEF HISTORY AND INDICATIONS: The patient is being evaluated for anemia, with a significant drop i n hemoglobin and hematocrit, as well as history of rectal cancer, post radiation and chemotherapy. PREMEDICATION: General anesthesia by anesthesiologist. INSTRUMENT USED: Olympus panendoscope. TECHNIQUE: After informed consent, with the patient/relatives understanding the procedure, its cathi cations, potential risks and complications, including but not limited to: allergic reaction, bleedin g, perforation or infection, and after all pertinent questions were answered to the patients satisfa ction, the patient/relatives signed witnessed informed consent. Following this, premedication was administered slowly IV push under careful cardiovascular and respi ratory monitoring with pulse oximetry, automatic blood pressure and color television console monitor. Once the sedative effect was achieved the patient was place in the left lateral decubitus, the panen doscope was introduced and advanced under visual control. Careful examination of the upper gastrointestinal tract, both on insertion as well as withdrawal of the instrument disclosed the following findings: ESOPHAGUS: There is severe ulceration in the esophagus with yellowish exudate. Biopsies were obtai eboni to rule out carmina esophagitis. STOMACH: Upon entrance to the stomach, air was insufflated. The gastric lewis failed to distend no rmally. There appears to be extrinsic compression that prevents the stomach from distending entirel y. There is erythema and edema of the mucosa in the body and antrum of the stomach. Biopsies were obtained in a limited fashion to rule out H. pylori infection. PYLORUS: The pylorus appears patent and within normal limits, with no evidence of gastric outlet ob struction. DUODENUM: The duodenal mucosa was carefully examined in the duodenal bulb as well as the second por tion of the duodenum and appears unremarkable with no evidence of duodenitis, ulcer or neoplasm. The instrument was then withdrawn, reexamining the mucosa in detail. No additional abnormalities we re noted. IMPRESSION: 1. Severe ulcerated esophagitis, rule out carmina esophagitis, biopsies obtained. 2. Gastritis, rule out Helicobacter pylori infection, biopsies obtained. 3. Extrinsic compression of the stomach. PLAN: PPI therapy, Diflucan, and pathology will be reviewed as soon as available. CT of the abdome n with oral and IV contrast will be obtained, as there appears to be suspicion of intraabdominal car cinomatosis. Dictated By: SEAMUS MASON MS/KEVIN Conf#: [id number] DID#: [id number]
[2016-04-04 07:46] LABS: POTASSIUM 3.8 mmol/L (3.5-5.1)
[2016-04-04 07:49] LABS: CREATININE 0.54 mg/dl (0.61-1.24)
[2016-04-04 07:50] LABS: CALCIUM 7.2 mg/dl (8.4-10.2)
[2016-04-04 08:29] VITALS: BP 136/69; PULSE 84; RESP 18
[2016-04-04] MEDS: FLUCONAZOLE 100 MG TAB PO SCH (08:48)
[2016-04-04] MEDS: HEPARIN 5,000 UNIT/0.5 ML SYG SC SCH ×2 (08:54→21:12)
--- NOTE | 2016-04-04 09:51 | CONS ---
Date/Time of Note Date/Time of Note DATE: 04/04/16 TIME: 09:45 Assessment/Plan Assessment/Plan Additional Assessment/Plan Abdominal pain, evaluate ileus versus PUD * CT abdomen 04-02-16: Stomach and bowel: There is increasing air and fluid distension and organization of multiple segments of small bowel but there is also stool seen throughout the colon which is moderately distended. The pattern is therefore most compatible with a severe ileus. The stomach appears unremarkable. * NG tube inserted to decompress abdomen * PPI twice daily Nausea Vomiting * EGD 06-08-15: . Distal esophagitis. 2. Gastritis. 3 biopsies negative for malignancy and H. pylori infection. * EGD 04-03-16: 1. Severe ulcerated esophagitis, rule out carmina esophagitis, biopsies obtained. 2. Gastritis, rule out Helicobacter pylori infection, biopsies obtained. 3. Extrinsic compression of the stomach. * Continue PPI therapy and Diflucan * Review CT of the abdomen to evaluate possibility of of intraabdominal carcinomatosis. Anemia * Monitor H&H every 6 hours, transfuse 2 units for hemoglobin less than 7.5 History of rectal cancer * Colonoscopy 06-08-15: IMPRESSION: Large obstructing mass, proximal rectum, clearly malignant in nature. Biopsies obtained. Unable to safely advance the colonoscope beyond this point. The distal margin of the mass was located at 12 cm from the anal verge. * Colonoscopy 04-03-16: Large obstructing mass, rectosigmoid at 15 cm. Biopsies obtained. * Surgery following Further recommendations depend on clinical course Patient seen in collaboration with Dr. Mason Consultation Date/Type/Reason Admit Date/Time Apr 01, 2016 at 18:54 Initial Consult Date 04/01/16 Type of Consultation: Gastroenterology Referring Provider: LINDA WALDROP MD 24 HR Interval Summary Free Text/Dictation EGD and colonoscopy yesterday Awaiting biopsy results CT abdomen and pelvis with contrast in process to evaluate possible Will start clear diet and advance to regular Exam/Review of Systems Vital Signs Vitals Vital Signs Date Time Temp Pulse Resp B/P Pulse Ox O2 Delivery O2 Flow Rate FiO2 04/04/16 08:29 97.7 84 18 136/69 95 Room Air 04/03/16 21:02 2 Intake and Output 04/03/16 04/03/16 04/04/16 15:00 23:00 07:00 Intake Total 700 ml 900 ml Output Total 1100 ml Balance 700 ml -200 ml Exam Constitutional: alert, oriented, other (Thin) Psych: nl mood/affect Head: atraumatic Eyes: EOMI, nl conjunctiva, nl lids, nl sclera ENMT: mucosa pink and moist, nl external ears & nose, nl lips & teeth, nl nasal mucosa & septum Respiratory: normal air movement Cardiovascular: regular rate and rhythm Gastrointestinal: non-tender, soft Neurological: MICROFABRICATION ENGINEER MANAGER II-XII intact Results Result Diagram: 04/04/16 0602 04/04/16 0602 Results 24 hrs Laboratory Tests Test 04/04/16 04:52 04/04/16 06:02 Ferritin 30.3 Iron Level < 10 L Percent Iron Saturation Total Iron Binding Capacity 204 L Anion Gap 14 Basophils # 0.0 Basophils % 0.1 Blood Morphology Comment Blood Urea Nitrogen 22 H Calcium Level 7.2 L Carbon Dioxide Level 27 Chloride Level 99 Creatinine 0.54 L Eosinophils # 0.0 Eosinophils % 0.0 Glucose Level 96 Hematocrit 27.5 #L Hemoglobin 8.9 L Lymphocytes # 0.5 L Lymphocytes % 7.3 L Mean Corpuscular Hemoglobin 22.8 L Mean Corpuscular Hemoglobin Concent 32.2 Mean Corpuscular Volume 70.8 L Mean Platelet Volume 7.6 Monocytes # 0.3 Monocytes % 4.6 Neutrophils # 5.9 Neutrophils % 88.0 H Nucleated Red Blood Cells # 0.0 Nucleated Red Blood Cells % 0.0 Platelet Count 295 Potassium Level 3.8 Red Blood Count 3.89 L Red Cell Distribution Width 16.0 H Sodium Level 136 White Blood Count 6.7 Medications Medications Current Medications Ondansetron HCl (Zofran Inj) 4 mg Q6H PRN IV NAUSEA AND/OR VOMITING Last administered on 04/03/16 09:20; Admin Dose 4 MG; Start 04/01/16 at 19:30 Acetaminophen (Tylenol Tab) 650 mg Q6H PRN PO PAIN LEVEL 1-3 OR FEVER Last administered on 04/03/16 19:12; Admin Dose 650 MG; Start 04/01/16 at 19:30 Acetaminophen/ Hydrocodone Bitart ([place] (5/325)) 1 tab Q6H PRN PO MODERATE PAIN LEVEL 4-6; Start 04/01/16 at 19:30 Morphine Sulfate (morphine) 2 mg Q4H PRN IV SEVERE PAIN LEVEL 7-10 Last administered on 04/03/16 09:20; Admin Dose 2 MG; Start 04/01/16 at 19:30 Docusate Sodium (Colace) 100 mg Q12H PRN PO CONSTIPATION; Start 04/01/16 at 19: 30 Magnesium Hydroxide (Milk Of Mag) 30 ml DAILY PRN PO CONSTIPATION; Start at 19:30 Sodium Biphosphate/ Sodium Phosphate (Fleet Enema) 133 ml DAILY PRN [place] CONSTIPATION Last administered on 04/03/16 09:00; Admin Dose 133 ML; Start 04/01 at 19:30 Heparin Sodium (Porcine) 5000 unit 5,000 unit Q12 SC Last administered on 08:54; Admin Dose 5,000 UNIT; Start 04/01/16 at 21:00 Sodium Chloride (1/2 NS) 1,000 ml @ 75 mls/hr [id number] IV Last administered on 04/03/16 23:32; Admin Dose 75 MLS/HR; Start 04/01/16 at 19:04 Lorazepam (Ativan) 0.5 mg Q6H PRN IV ANXIETY Last administered on 04/03/16 12: 14; Admin Dose 0.5 MG; Start 04/01/16 at 19:30 Hydralazine HCl (Apresoline) 10 mg Q6H PRN IV ELEVATED BLOOD PRESSURE; Start at 19:30 Nitroglycerin (Nitroglycerin (Sl Tab) 0.4 Mg) 1 tab Q5M PRN SL ANGINA; Start at 19:30 Pantoprazole (Protonix Iv) 40 mg BID@06,18 IV Last administered on 04/04/16 05: 41; Admin Dose 40 MG; Start 04/02/16 at 18:00 Morphine Sulfate (morphine) 4 mg Q4H PRN IV PAIN Last administered on 23:23; Admin Dose 4 MG; Start 04/02/16 at 22:00 Metoclopramide HCl (Reglan) 10 mg Q6 IV Last administered on 04/04/16 05:41; Admin Dose 10 MG; Start 04/03/16 at 00:00 Hydromorphone HCl (Dilaudid) 0.5 mg Q4H PRN IV PAIN Last administered on 04:22; Admin Dose 0.5 MG; Start 04/03/16 at 14:30 Fluconazole (Diflucan) 100 mg DAILY PO Last administered on 04/04/16 08:48; Admin Dose 100 MG; Start 04/03/16 at 19:30 DOLORES CASTRO Apr 04, 2016 09:51
[2016-04-04] MEDS ORDERED: SOD CHLORIDE 0.9% 100 ML ONE (09:59)
[2016-04-04] MEDS ORDERED: IODIXANOL LOCM 100 ML BTL ONE (09:59)
--- NOTE | 2016-04-04 10:33 | RADRPT ---
PROCEDURE: CT Abdomen and Pelvis with contrast. CLINICAL INDICATION: Abdominal pain ; rectal cancer TECHNIQUE: CT scan of the abdomen and pelvis with contrast was performed on a multidetector high-r esolution CT scanner. Coronal and sagittal reformatted images were obtained from the axial source im ages. Images were reviewed on a high-resolution PACS workstation. 80 cc of Isovue 300 iodinated cont rast was administered intravenously without reported complication. The total exam CTDI equals 6 mGy and the total exam DLP equals 342 mGy-cm. One or more of the following dose reduction techniques w ere used: Automated exposure control, Adjustment of the mA and/or kV according to patient size, and/ or use of iterative reconstruction technique. COMPARISON: Abdominal CT 04/01/2016 FINDINGS: Small bilateral pleural effusions with bibasilar consolidations and interstitial thickening. There is fluid distension of the distal esophagus with wall thickening. No suspicious hepatic mass identified. The portal vein is patent. The pancreas, spleen, adrenals ar e grossly unremarkable. Left renal cysts. No evidence of hydronephrosis. The gallbladder is mildly distended. Multiple dilated loops of small bowel are identified with formed stool seen throughout the colon. R emonstrated is the large, irregular rectosigmoid mass with infiltration of the surrounding fat. The re is presacral edema. Diffuse anasarca is seen. No evidence of pneumoperitoneum. Small volume of ascites. Aortoiliac atherosclerosis. Enlarged prostate. No aggressive osseous lesions are seen. IMPRESSION: Remonstrated is the large, irregular rectosigmoid mass with infiltration of the surrounding fat. Thi s is in keeping with the provided history of rectal cancer. Again noted is marked dilatation of mult iple small bowel loops with formed stool throughout the colon likely due to partial obstruction from the rectosigmoid mass. No suspicious hepatic mass or bulky retroperitoneal lymphadenopathy is seen. Small bilateral pleural effusions with bibasilar consolidations and interstitial thickening. RPTAT: AA .Agustin Hanley MD, Date Time Electronically viewed and signed by .Agustin Hanley MD, on 04/04/2016 10:32 .T/
[2016-04-04] MEDS: FERROUS SULFATE (EC) 325 MG TAB PO SCH ×2 (12:27→21:10)
--- NOTE | 2016-04-04 15:17 | PN ---
Date/Time of Note Date/Time of Note DATE: 04/04/16 TIME: 15:14 Assessment/Plan VTE Prophylaxis VTE Prophylaxis Intervention: heparin Lines/Catheters IV Catheter Type (from Nrsg): Peripheral IV Assessment/Plan Chief Complaint/Hosp Course Assessment and plan 1. Abdominal pain likely secondary to ileus. Surgeon to follow. GI following. s/ p EGD. advance diet per surgeon recs 2. 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 Cont with oncologist recs 3. History of distal esophagitis and distress. We'll continue on PPI 4. Iron deficiency anemia. We'll resume patient's iron supplement 5. History of hypertension. We'll continue on antihypertensives and adjust as needed 6. Recent history of UTI. Continue on Cipro Disposition and plan: advance diet per surgeon recs. cont patient monitoring. d/ c when medically stable and cleared by consultants Discussed plan of care with Dr. Roberts Problems: Subjective 24 Hr Interval Summary Free Text/Dictation still with abd pain. no s/s of distress Exam/Review of Systems Vital Signs Vitals Vital Signs Date Time Temp Pulse Resp B/P Pulse Ox O2 Delivery O2 Flow Rate FiO2 04/04/16 08:29 97.7 84 18 136/69 95 Room Air 04/03/16 21:02 2 Intake and Output 04/03/16 04/03/16 04/04/16 15:00 23:00 07:00 Intake Total 700 ml 900 ml Output Total 1100 ml Balance 700 ml -200 ml Exam General: No acute signs or symptoms of distress Eyes: pupils equal round, Anicteric sclera Neck: Supple nontender, no JVD Cardiac: S1, S2 auscultated, regular rhythm and rate Pulmonary: No coarse rhonchi or breathing auscultated GI: minimally tender on palpation Extremities: No edema bilateral lower extremities Skin: Clean dry and intact Neurologic: Alert to person place and time and situation Results Result Diagram: 04/04/16 0602 04/04/16 0602 Results 24 hrs Laboratory Tests Test 04/04/16 04:52 04/04/16 06:02 Ferritin 30.3 Iron Level < 10 L Percent Iron Saturation Total Iron Binding Capacity 204 L Anion Gap 14 Basophils # 0.0 Basophils % 0.1 Blood Morphology Comment Blood Urea Nitrogen 22 H Calcium Level 7.2 L Carbon Dioxide Level 27 Chloride Level 99 Creatinine 0.54 L Eosinophils # 0.0 Eosinophils % 0.0 Glucose Level 96 Hematocrit 27.5 #L Hemoglobin 8.9 L Lymphocytes # 0.5 L Lymphocytes % 7.3 L Mean Corpuscular Hemoglobin 22.8 L Mean Corpuscular Hemoglobin Concent 32.2 Mean Corpuscular Volume 70.8 L Mean Platelet Volume 7.6 Monocytes # 0.3 Monocytes % 4.6 Neutrophils # 5.9 Neutrophils % 88.0 H Nucleated Red Blood Cells # 0.0 Nucleated Red Blood Cells % 0.0 Platelet Count 295 Potassium Level 3.8 Red Blood Count 3.89 L Red Cell Distribution Width 16.0 H Sodium Level 136 White Blood Count 6.7 Medications Medications Current Medications Ondansetron HCl (Zofran Inj) 4 mg Q6H PRN IV NAUSEA AND/OR VOMITING Last administered on 04/03/16 09:20; Admin Dose 4 MG; Start 04/01/16 at 19:30 Acetaminophen (Tylenol Tab) 650 mg Q6H PRN PO PAIN LEVEL 1-3 OR FEVER Last administered on 04/03/16 19:12; Admin Dose 650 MG; Start 04/01/16 at 19:30 Acetaminophen/ Hydrocodone Bitart ([place] (5/325)) 1 tab Q6H PRN PO MODERATE PAIN LEVEL 4-6; Start 04/01/16 at 19:30 Morphine Sulfate (morphine) 2 mg Q4H PRN IV SEVERE PAIN LEVEL 7-10 Last administered on 04/03/16 09:20; Admin Dose 2 MG; Start 04/01/16 at 19:30 Docusate Sodium (Colace) 100 mg Q12H PRN PO CONSTIPATION; Start 04/01/16 at 19: 30 Magnesium Hydroxide (Milk Of Mag) 30 ml DAILY PRN PO CONSTIPATION; Start at 19:30 Sodium Biphosphate/ Sodium Phosphate (Fleet Enema) 133 ml DAILY PRN [place] CONSTIPATION Last administered on 04/03/16 09:00; Admin Dose 133 ML; Start 04/01 at 19:30 Heparin Sodium (Porcine) 5000 unit 5,000 unit Q12 SC Last administered on 08:54; Admin Dose 5,000 UNIT; Start 04/01/16 at 21:00 Sodium Chloride (1/2 NS) 1,000 ml @ 75 mls/hr [id number] IV Last administered on 04/03/16 23:32; Admin Dose 75 MLS/HR; Start 04/01/16 at 19:04 Lorazepam (Ativan) 0.5 mg Q6H PRN IV ANXIETY Last administered on 04/03/16 12: 14; Admin Dose 0.5 MG; Start 04/01/16 at 19:30 Hydralazine HCl (Apresoline) 10 mg Q6H PRN IV ELEVATED BLOOD PRESSURE; Start at 19:30 Nitroglycerin (Nitroglycerin (Sl Tab) 0.4 Mg) 1 tab Q5M PRN SL ANGINA; Start at 19:30 Pantoprazole (Protonix Iv) 40 mg BID@,18 IV Last administered on 04/04/16 05: 41; Admin Dose 40 MG; Start 04/02/16 at 18:00 Morphine Sulfate (morphine) 4 mg Q4H PRN IV PAIN Last administered on 23:23; Admin Dose 4 MG; Start 04/02/16 at 22:00 Metoclopramide HCl (Reglan) 10 mg Q6 IV Last administered on 04/04/16 12:27; Admin Dose 10 MG; Start 04/03/16 at 00:00 Hydromorphone HCl (Dilaudid) 0.5 mg Q4H PRN IV PAIN Last administered on 10:54; Admin Dose 0.5 MG; Start 04/03/16 at 14:30 Fluconazole (Diflucan) 100 mg DAILY PO Last administered on 04/04/16 08:48; Admin Dose 100 MG; Start 04/03/16 at 19:30 Ferrous Sulfate (Ferrous Sulfate (Ec)) 325 mg TID PO Last administered on 12:27; Admin Dose 325 MG; Start 04/04/16 at 13:00 GLORY CHEW Apr 04, 2016 15:17
[2016-04-04] MEDS: SOD CHLORIDE 0.45% 1,000 ML IV SCH (15:53)
--- NOTE | 2016-04-04 16:20 | PN ---
Date/Time of Note Date/Time of Note DATE: 04/04/16 TIME: 16:02 Assessment/Plan Lines/Catheters IV Catheter Type (from Nrs): Peripheral IV Assessment/Plan Assessment/Plan [facility] Progress Note Date of Service: 04/04/16 Today's Impression & Plan: Overall stable with partial SBO vs ileus in the setting of rectosigmoid malignancy. Significant comorbidities include not insignificant malnutrition with BMI 15.8 and prehydration albumin of 3.6 in the setting of inability to feed enterically. Currently in the process of multidisciplinary discussions to choose the best course of action. Unless his obstruction resolves enough that he can eat adequately and tolerate systemic chemotherapy, he will likely need surgical intervention. Have him tentatively on the schedule for Friday for laparoscopic, possible open, partial colectomy with ostomy. Small area of liver in segment 6 and two very small areas in segment 4a of questionable significance (too small to tell) benign path vs. metastatic disease. With above assessment, I've recommended the following for today: 1. Continue current cares 2. If tolerates liquids, will consider short period of nutritional support prior to possible surgery 3. Difficult to prep if obstructed; will have to see how he does over the weekend Thank you again for your great care of this very pleasant patient and wonderful family. If there are any questions, please feel free to call me at [phone]. TOTAL VISIT TIME: 20 minutes of which more than half was spent in [id number] discussion with the patient, possibly including family, as well as coordination of care between multiple physicians and providers. Disclaimer: Inadvertent spelling or grammatical errors are likely due to EHR/ dictation software use and do not reflect on the overall quality of patient care. Updated Clinical Summary: A very-pleasant 65-year-old gentleman with comorbidities including hypertension , who was initially admitted to [facility] through ED on 06/05/2015 with signs and symptoms consistent with anemia that eventually was shown to be a large, nearly obstructing mass approximately 12 cm from the anal verge up to the area of the rectosigmoid junction on colonoscopy 06/07/2015. Plan at that time was neoadjuvant treatment with chemoradiation followed by restaging and surgical resection. Patient underwent chemotherapy (Dr. Campa) and radiation therapy (Dr. Aranda) that ended reportedly Nov 2015. Patient represented to [facility] through ED with constipation, vomiting, abdominal distension and dilated loops of small intestine on 04/01/16. Comorbidity List: 1. Rectal malignancy, s/p chemotherapy and radiation June to Nov 2015 2. Hypertension 3. Cachexia 4. Colonoscopy June 2015 Subjective: No reported major events or complaints; no major reported abd pain and under control with medications; no n/v/d; no sob or cp; minimal flatus; - BM; + activity Objective: Vitals: See below Exam: GENERAL: On exam, the patient was sitting laying in bed and appeared to be comfortable and in no acute distress. ABDOMEN: Soft, nontender and nondistended. Much improved since 2 days ago. There are no peritoneal signs or guarding. SKIN: Skin appears to be pink and feels warm to touch. NEUROLOGIC: Patient is awake, alert, and follows commands appropriately. Exam/Review of Systems Vital Signs Vitals Vital Signs Date Time Temp Pulse Resp B/P Pulse Ox O2 Delivery O2 Flow Rate FiO2 04/04/16 08:29 97.7 84 18 136/69 95 Room Air 04/03/16 21:02 2 Intake and Output 04/03/16 04/03/16 04/04/16 15:00 23:00 07:00 Intake Total 700 ml 900 ml Output Total 1100 ml Balance 700 ml -200 ml Results Result Diagram: 04/04/1660104/04/16601 DIVINE BEY M.D. Apr 04, 2016 16:19
--- NOTE | 2016-04-04 17:55 | CONS ---
Date/Time of Note Date/Time of Note DATE: 04/04/16 TIME: 17:51 Assessment/Plan Assessment/Plan Chief Complaint/Hosp Course ABD PAIN, vomiting, and constipation- SBO VS ILEUS conservative management for now SURG F-UP RECTAL ADENOCARCINOMA- POST chemo/xrt CEA-N NONCOMPLIANT WITH SURGICAL F-UP R/O RECURRENCE OF MALIGNANCY REASON FOR ILEUS VS SBO AGREE WITH restaging; include a liver CT and pelvic MRI SEVERE IRON DEFICIENCY WITH Microcytic, hypochromic anemia. RESTART IV IRON MONITOR BLOOD COUNT CLOSELY Distal esophagitis with gastritis. Continue proton pump inhibitors. HTN POOR COMPLIANCE Problems: Consultation Date/Type/Reason Admit Date/Time Apr 01, 2016 at 18:54 Type of Consultation: hemeon Referring Provider: LINDA WALDROP MD 24 HR Interval Summary Free Text/Dictation Overall stable with partial SBO vs ileus in the setting of rectosigmoid malignancy Exam/Review of Systems Vital Signs Vitals Vital Signs Date Time Temp Pulse Resp B/P Pulse Ox O2 Delivery O2 Flow Rate FiO2 04/04/16 08:29 97.7 84 18 136/69 95 Room Air 04/03/16 21:02 2 Intake and Output 04/03/16 04/03/16 04/04/16 15:00 23:00 07:00 Intake Total 700 ml 900 ml Output Total 1100 ml Balance 700 ml -200 ml Exam General: No acute signs or symptoms of distress Eyes: pupils equal round, Anicteric sclera Neck: Supple nontender, no JVD Cardiac: S1, S2 auscultated, regular rhythm and rate Pulmonary: No coarse rhonchi or breathing auscultated GI: Abdomen soft nontender nondistended, bowel sounds active, NG tube in place Extremities: No edema bilateral lower extremities Skin: Clean dry and intact Neurologic: Alert to person place and time and situation Results Result Diagram: 04/04/16 0602 04/04/16 0602 Results 24 hrs Laboratory Tests Test 04/04/16 04:52 04/04/16 06:02 Ferritin 30.3 Iron Level < 10 L Percent Iron Saturation Total Iron Binding Capacity 204 L Anion Gap 14 Basophils # 0.0 Basophils % 0.1 Blood Morphology Comment Blood Urea Nitrogen 22 H Calcium Level 7.2 L Carbon Dioxide Level 27 Chloride Level 99 Creatinine 0.54 L Eosinophils # 0.0 Eosinophils % 0.0 Glucose Level 96 Hematocrit 27.5 #L Hemoglobin 8.9 L Lymphocytes # 0.5 L Lymphocytes % 7.3 L Mean Corpuscular Hemoglobin 22.8 L Mean Corpuscular Hemoglobin Concent 32.2 Mean Corpuscular Volume 70.8 L Mean Platelet Volume 7.6 Monocytes # 0.3 Monocytes % 4.6 Neutrophils # 5.9 Neutrophils % 88.0 H Nucleated Red Blood Cells # 0.0 Nucleated Red Blood Cells % 0.0 Platelet Count 295 Potassium Level 3.8 Red Blood Count 3.89 L Red Cell Distribution Width 16.0 H Sodium Level 136 White Blood Count 6.7 Medications Medications Current Medications Ondansetron HCl (Zofran Inj) 4 mg Q6H PRN IV NAUSEA AND/OR VOMITING Last administered on 04/03/16 09:20; Admin Dose 4 MG; Start 04/01/16 at 19:30 Acetaminophen (Tylenol Tab) 650 mg Q6H PRN PO PAIN LEVEL 1-3 OR FEVER Last administered on 04/03/16 19:12; Admin Dose 650 MG; Start 04/01/16 at 19:30 Acetaminophen/ Hydrocodone Bitart ([place] (5/325)) 1 tab Q6H PRN PO MODERATE PAIN LEVEL 4-6; Start 04/01/16 at 19:30 Morphine Sulfate (morphine) 2 mg Q4H PRN IV SEVERE PAIN LEVEL 7-10 Last administered on 04/03/16 09:20; Admin Dose 2 MG; Start 04/01/16 at 19:30 Docusate Sodium (Colace) 100 mg Q12H PRN PO CONSTIPATION; Start 04/01/16 at 19: 30 Magnesium Hydroxide (Milk Of Mag) 30 ml DAILY PRN PO CONSTIPATION; Start at 19:30 Sodium Biphosphate/ Sodium Phosphate (Fleet Enema) 133 ml DAILY PRN [place] CONSTIPATION Last administered on 04/03/16 09:00; Admin Dose 133 ML; Start 04/01 at 19:30 Heparin Sodium (Porcine) 5000 unit 5,000 unit Q12 SC Last administered on 08:54; Admin Dose 5,000 UNIT; Start 04/01/16 at 21:00 Sodium Chloride (1/2 NS) 1,000 ml @ 75 mls/hr [id number] IV Last administered on 04/04/16 15:53; Admin Dose 75 MLS/HR; Start 04/01/16 at 19:04 Lorazepam (Ativan) 0.5 mg Q6H PRN IV ANXIETY Last administered on 04/03/16 12: 14; Admin Dose 0.5 MG; Start 04/01/16 at 19:30 Hydralazine HCl (Apresoline) 10 mg Q6H PRN IV ELEVATED BLOOD PRESSURE; Start at 19:30 Nitroglycerin (Nitroglycerin (Sl Tab) 0.4 Mg) 1 tab Q5M PRN SL ANGINA; Start at 19:30 Pantoprazole (Protonix Iv) 40 mg BID@,18 IV Last administered on 04/04/16 15: 57; Admin Dose 40 MG; Start 04/02/16 at 18:00 Morphine Sulfate (morphine) 4 mg Q4H PRN IV PAIN Last administered on 23:23; Admin Dose 4 MG; Start 04/02/16 at 22:00 Metoclopramide HCl (Reglan) 10 mg Q6 IV Last administered on 04/04/16 17:22; Admin Dose 10 MG; Start 04/03/16 at 00:00 Hydromorphone HCl (Dilaudid) 0.5 mg Q4H PRN IV PAIN Last administered on 15:52; Admin Dose 0.5 MG; Start 04/03/16 at 14:30 Fluconazole (Diflucan) 100 mg DAILY PO Last administered on 04/04/16 08:48; Admin Dose 100 MG; Start 04/03/16 at 19:30 Ferrous Sulfate (Ferrous Sulfate (Ec)) 325 mg TID PO Last administered on 12:27; Admin Dose 325 MG; Start 04/04/16 at 13:00 Procedures Procedures [place] [address] Radiology Main Line: [phone] DIAGNOSTIC IMAGING REPORT Patient: CARA WILKINSON : 1950 Age: 65 Sex: M MR #: [id number] DOS: 04/04/16 0800 Ordering MD: SHANNAN LARRY MD Location: [facility] – [place] Room/Bed: 402-A PROCEDURE: CT Abdomen and Pelvis with contrast. CLINICAL INDICATION: Abdominal pain ; rectal cancer TECHNIQUE: CT scan of the abdomen and pelvis with contrast was performed on a multidetector high-resolution CT scanner. Coronal and sagittal reformatted images were obtained from the axial source images. Images were reviewed on a high-resolution PACS workstation. 80 cc of Isovue 300 iodinated contrast was administered intravenously without reported complication. The total exam CTDI equals 6 mGy and the total exam DLP equals 342 mGy-cm. One or more of the following dose reduction techniques were used: Automated exposure control, Adjustment of the mA and/or kV according to patient size, and/or use of iterative reconstruction technique. COMPARISON: Abdominal CT 04/01/2016 FINDINGS: Small bilateral pleural effusions with bibasilar consolidations and interstitial thickening. There is fluid distension of the distal esophagus with wall thickening. No suspicious hepatic mass identified. The portal vein is patent. The pancreas , spleen, adrenals are grossly unremarkable. Left renal cysts. No evidence of hydronephrosis. The gallbladder is mildly distended. Multiple dilated loops of small bowel are identified with formed stool seen throughout the colon. Remonstrated is the large, irregular rectosigmoid mass with infiltration of the surrounding fat. There is presacral edema. Diffuse anasarca is seen. No evidence of pneumoperitoneum. Small volume of ascites. Aortoiliac atherosclerosis. Enlarged prostate. No aggressive osseous lesions are seen. IMPRESSION: Remonstrated is the large, irregular rectosigmoid mass with infiltration of the surrounding fat. This is in keeping with the provided history of rectal cancer. Again noted is marked dilatation of multiple small bowel loops with formed stool throughout the colon likely due to partial obstruction from the rectosigmoid mass. No suspicious hepatic mass or bulky retroperitoneal lymphadenopathy is seen. Small bilateral pleural effusions with bibasilar consolidations and interstitial thickening. RPTAT: AA .Agustin Hanley MD, Date Time Electronically viewed and signed by .Agustin Hanley MD, MD on 04/04/2016 10:32 .T/ CC: SHANNAN LARRY MD, VERA M MD Apr 04, 2016 17:55
[2016-04-04 19:19] LABS: IRON 12 ug/dl (35-150)
[2016-04-04 19:22] VITALS: BP 119/64; RESP 19
[2016-04-04 19:28] LABS: TOTAL IRON BINDING CAPACITY 179 ug/dl (241-421)
[2016-04-04] MEDS: SOD FERRIC GLUC COMPLX 125 MG in SOD CHLORIDE 0.9% 100 ML IVPB SCH (21:15)
[2016-04-04] MEDS: MAGNESIUM HYDROXIDE 30ML CUP PO PRN (23:30)
[2016-04-05] MEDS: HYDROmorphONE 1 MG/ML SYG IV PRN ×6 (01:52→22:34)
[2016-04-05] MEDS: SOD CHLORIDE 0.45% 1,000 ML IV SCH ×2 (06:01→18:35)
[2016-04-05] MEDS: METOCLOPRAMIDE 10 MG INJ IV SCH ×4 (06:01→23:24)
[2016-04-05] MEDS: PANTOPRAZOLE 40 MG INJ IV SCH ×2 (06:01→17:18)
[2016-04-05 07:48] VITALS: BP 131/69; RESP 20
[2016-04-05 07:54] LABS: BASOPHILS % 0.1 % (0.0-2.0); EOSINOPHILS % 0.3 % (0.0-7.0); HEMATOCRIT 27.6 % (42.0-52.0); HEMOGLOBIN 8.9 g/dl (14.0-18.0); LYMPHOCYTES # 0.4 10^3/ul (0.8-2.9); MEAN CORPUSCULAR HGB CONC 32.1 g/dl (32.0-37.0); MEAN CORPUSCULAR VOLUME 71.4 fl (82.0-101.0); MEAN PLATELET VOLUME 7.5 fl (7.4-10.4); MONOCYTE # 0.5 10^3/ul (0.3-0.9); MONOCYTES % 8.9 % (0.0-11.0); NEUTROPHIL # 4.8 10^3/ul (1.6-7.5); NEUTROPHILS % 83.7 % (39.0-77.0); PLATELET COUNT 311 10^3/UL (140-440); RED BLOOD COUNT 3.86 10^6/ul (4.70-6.10); RED CELL DISTRIBUTION WIDTH 15.9 % (11.5-14.5); UNCORRECTED WBC 5.7 10^3/ul (4.8-10.8); WHITE BLOOD COUNT 5.7 10^3/ul (4.8-10.8)
[2016-04-05 08:01] LABS: POTASSIUM 3.9 mmol/L (3.5-5.1)
[2016-04-05 08:03] LABS: CREATININE 0.55 mg/dl (0.61-1.24)
[2016-04-05 08:04] LABS: CALCIUM 7.1 mg/dl (8.4-10.2)
[2016-04-05 08:32] LABS: CONDITION 1
[2016-04-05 08:33] LABS: LH ANALYZER COMMENTS 1
[2016-04-05] MEDS: FLUCONAZOLE 100 MG TAB PO SCH (08:36)
[2016-04-05] MEDS: FERROUS SULFATE (EC) 325 MG TAB PO SCH ×3 (08:36→21:08)
[2016-04-05] MEDS: HEPARIN 5,000 UNIT/0.5 ML SYG SC SCH ×2 (08:38→21:10)
--- NOTE | 2016-04-05 11:25 | CONS ---
Date/Time of Note Date/Time of Note DATE: 04/05/16 TIME: 11:21 Assessment/Plan Assessment/Plan Chief Complaint/Hosp Course ABD PAIN, vomiting, and constipation- SBO VS ILEUS conservative management for now SURG F-UP POS SURGERY ON FRIDAY RECTAL ADENOCARCINOMA- POST chemo/xrt CEA-N NONCOMPLIANT WITH SURGICAL F-UP R/O RECURRENCE OF MALIGNANCY REASON FOR ILEUS VS SBO AGREE WITH restaging; include a liver CT and pelvic MRI SEVERE IRON DEFICIENCY WITH Microcytic, hypochromic anemia. RESTART IV IRON MONITOR BLOOD COUNT CLOSELY Distal esophagitis with gastritis. Continue proton pump inhibitors. HTN POOR COMPLIANCE Problems: Consultation Date/Type/Reason Admit Date/Time Apr 01, 2016 at 18:54 Type of Consultation: hemeonc Referring Provider: LINDA WALDROP MD 24 HR Interval Summary Free Text/Dictation ALL NOTED D/W DR MARTINEZ SBO- PERSIST GOING FOR SURGERY Exam/Review of Systems Vital Signs Vitals Vital Signs Date Time Temp Pulse Resp B/P Pulse Ox O2 Delivery O2 Flow Rate FiO2 04/05/16 07:48 98.1 86 20 131/69 95 04/04/16 21:05 Nasal Cannula 2.0 Intake and Output 04/04/16 04/04/16 04/05/16 15:00 23:00 07:00 Intake Total 1680 ml 1700 ml Output Total 1050 ml Balance 1680 ml 650 ml Exam Constitutional: alert, oriented, other (Thin) Psych: nl mood/affect Head: atraumatic Eyes: EOMI, nl conjunctiva, nl lids, nl sclera ENMT: mucosa pink and moist, nl external ears & nose, nl lips & teeth, nl nasal mucosa & septum Respiratory: normal air movement Cardiovascular: regular rate and rhythm Gastrointestinal: non-tender, soft Neurological: MECHATRONICS TECHNICIAN II-XII intact Results Result Diagram: 04/05/16 0715 04/05/16 0715 Results 24 hrs Laboratory Tests Test 04/04/16 18:43 04/05/16 07:15 Ferritin 42.1 Iron Level 12 L Percent Iron Saturation 7 L Total Iron Binding Capacity 179 L Anion Gap 9 # Basophils # 0.0 Basophils % 0.1 Blood Morphology Comment Blood Urea Nitrogen 21 H Calcium Level 7.1 L Carbon Dioxide Level 29 Chloride Level 98 Creatinine 0.55 L Eosinophils # 0.0 Eosinophils % 0.3 Glucose Level 78 Hematocrit 27.6 L Hemoglobin 8.9 L Lymphocytes # 0.4 L Lymphocytes % 7.0 L Mean Corpuscular Hemoglobin 23.0 L Mean Corpuscular Hemoglobin Concent 32.1 Mean Corpuscular Volume 71.4 L Mean Platelet Volume 7.5 Monocytes # 0.5 Monocytes % 8.9 Neutrophils # 4.8 Neutrophils % 83.7 H Nucleated Red Blood Cells # 0.0 Nucleated Red Blood Cells % 0.0 Platelet Count 311 Potassium Level 3.9 Red Blood Count 3.86 L Red Cell Distribution Width 15.9 H Sodium Level 132 L White Blood Count 5.7 Medications Medications Current Medications Ondansetron HCl (Zofran Inj) 4 mg Q6H PRN IV NAUSEA AND/OR VOMITING Last administered on 04/03/16 09:20; Admin Dose 4 MG; Start 04/01/16 at 19:30 Acetaminophen (Tylenol Tab) 650 mg Q6H PRN PO PAIN LEVEL 1-3 OR FEVER Last administered on 04/03/16 19:12; Admin Dose 650 MG; Start 04/01/16 at 19:30 Acetaminophen/ Hydrocodone Bitart ([place] (5/325)) 1 tab Q6H PRN PO MODERATE PAIN LEVEL 4-6; Start 04/01/16 at 19:30 Morphine Sulfate (morphine) 2 mg Q4H PRN IV SEVERE PAIN LEVEL 7-10 Last administered on 04/03/16 09:20; Admin Dose 2 MG; Start 04/01/16 at 19:30 Docusate Sodium (Colace) 100 mg Q12H PRN PO CONSTIPATION; Start 04/01/16 at 19: 30 Magnesium Hydroxide (Milk Of Mag) 30 ml DAILY PRN PO CONSTIPATION Last administered on 04/04/16 23:30; Admin Dose 30 ML; Start 04/01/16 at 19:30 Sodium Biphosphate/ Sodium Phosphate (Fleet Enema) 133 ml DAILY PRN [place] CONSTIPATION Last administered on 04/03/16 09:00; Admin Dose 133 ML; Start 04/01 at 19:30 Heparin Sodium (Porcine) 5000 unit 5,000 unit Q12 SC Last administered on 08:38; Admin Dose 5,000 UNIT; Start 04/01/16 at 21:00 Sodium Chloride (1/2 NS) 1,000 ml @ 75 mls/hr [id number] IV Last administered on 04/05/16 06:01; Admin Dose 75 MLS/HR; Start 04/01/16 at 19:04 Lorazepam (Ativan) 0.5 mg Q6H PRN IV ANXIETY Last administered on 04/03/16 12: 14; Admin Dose 0.5 MG; Start 04/01/16 at 19:30 Hydralazine HCl (Apresoline) 10 mg Q6H PRN IV ELEVATED BLOOD PRESSURE; Start at 19:30 Nitroglycerin (Nitroglycerin (Sl Tab) 0.4 Mg) 1 tab Q5M PRN SL ANGINA; Start at 19:30 Pantoprazole (Protonix Iv) 40 mg BID@06,18 IV Last administered on 04/05/16 06: 01; Admin Dose 40 MG; Start 04/02/16 at 18:00 Morphine Sulfate (morphine) 4 mg Q4H PRN IV PAIN Last administered on 23:23; Admin Dose 4 MG; Start 04/02/16 at 22:00 Metoclopramide HCl (Reglan) 10 mg Q6 IV Last administered on 04/05/16 06:01; Admin Dose 10 MG; Start 04/03/16 at 00:00 Hydromorphone HCl (Dilaudid) 0.5 mg Q4H PRN IV PAIN Last administered on 10:27; Admin Dose 0.5 MG; Start 04/03/16 at 14:30 Fluconazole (Diflucan) 100 mg DAILY PO Last administered on 04/05/16 08:36; Admin Dose 100 MG; Start 04/03/16 at 19:30 Ferrous Sulfate 325 mg 325 mg TID PO Last administered on 04/05/16 08:36; Admin Dose 325 MG; Start 04/04/16 at 13:00 Ferric Sodium Gluconate Complex/ Sodium Chloride (Ferrlecit/NS) 110 ml @ 110 mls/hr Q24H IVPB Last administered on 04/04/16 21:15; Admin Dose 110 MLS/HR; Start 04/04/16 at 20:00; Stop 04/08/16 at 20:59 JASMINA PALOMARES MD Apr 05, 2016 11:25
--- NOTE | 2016-04-05 13:27 | PN ---
Date/Time of Note Date/Time of Note DATE: 04/05/16 TIME: 13:14 Assessment/Plan Lines/Catheters IV Catheter Type (from Nrs): Peripheral IV Assessment/Plan Assessment/Plan [facility] Progress Note Date of Service: 04/05/16 Today's Impression & Plan: Overall stable with partial SBO vs ileus in the setting of rectosigmoid malignancy. After multidisciplinary discussions with oncology, radiation oncology and radiology, best course of action is surgical intervention. We have him tentatively on the schedule for Friday for laparoscopic, possible open, partial colectomy with ostomy and intraoperative ultrasound of the liver, possible liver biopsy. Discussed at length with the patient. With above assessment, I've recommended the following for today: 1. Continue current cares 2. If tolerates liquids, will consider short period of nutritional support prior to possible surgery 3. Difficult to prep if obstructed; will have to see how he does over the weekend Thank you again for your great care of this very pleasant patient and wonderful family. If there are any questions, please feel free to call me at [phone]. TOTAL VISIT TIME: 20 minutes of which more than half was spent in [id number] discussion with the patient, possibly including family, as well as coordination of care between multiple physicians and providers. Disclaimer: Inadvertent spelling or grammatical errors are likely due to EHR/ dictation software use and do not reflect on the overall quality of patient care. Updated Clinical Summary: A very-pleasant 65-year-old gentleman with comorbidities including hypertension , who was initially admitted to [facility] through ED on 06/05/2015 with signs and symptoms consistent with anemia that eventually was shown to be a large, nearly obstructing mass approximately 12 cm from the anal verge up to the area of the rectosigmoid junction on colonoscopy 06/07/2015. Plan at that time was neoadjuvant treatment with chemoradiation followed by restaging and surgical resection. Patient underwent radiation therapy (Dr. Aranda) that ended September 2015 (patient's recollection was November 2015). Discussions with multiple colleagues revealed evidence that the patient had been not following instructions and there were barriers to get the patient to surgical intervention. At least part of the barriers were due to patient factors alone. Patient reported having contacted my office approximately 5 times to try and make an appointment and was told that we "do not except" his insurance. Careful review of office records showed no documentation of patient calling during this timeframe. Patient also believes that he had and Beatrice Omicia as his insurance carrier, but his insurance carrier was [employer] (accepted by our program). Patient represented to [facility] through ED with constipation, vomiting , abdominal distension and dilated loops of small intestine on 04/01/16. Significant comorbidities included not insignificant malnutrition with BMI 15.8 and prehydration, albumin of 3.6 in the setting of inability to feed enterically. Small area of liver in segment 6 and two very small areas in segment 4a of questionable significance (too small to tell) benign path vs. metastatic disease. Comorbidity List: 1. Rectal malignancy, s/p chemotherapy and radiation June to Nov 2015 2. Hypertension 3. Cachexia 4. Colonoscopy June 2015 Subjective: No reported major events or complaints; no major reported abd pain and under control with medications; no n/v/d; no sob or cp; minimal flatus; + BM (small); + activity Objective: Vitals: See below Exam: GENERAL: On exam, the patient was sitting laying in bed and appeared to be comfortable and in no acute distress. ABDOMEN: Soft, nontender and nondistended. There are no peritoneal signs or guarding. SKIN: Skin appears to be pink and feels warm to touch. NEUROLOGIC: Patient is awake, alert, and follows commands appropriately. Exam/Review of Systems Vital Signs Vitals Vital Signs Date Time Temp Pulse Resp B/P Pulse Ox O2 Delivery O2 Flow Rate FiO2 04/05/16 07:48 98.1 86 20 131/69 95 04/04/16 21:05 Nasal Cannula 2.0 Intake and Output 04/04/16 04/04/16 04/05/16 15:00 23:00 07:00 Intake Total 1680 ml 1700 ml Output Total 1050 ml Balance 1680 ml 650 ml Results Result Diagram: 04/05/16 0715 04/05/16 0715 DIVINE BEY M.D. Apr 05, 2016 13:25
--- NOTE | 2016-04-05 13:57 | PN ---
Date/Time of Note Date/Time of Note DATE: 04/05/16 TIME: 13:55 Assessment/Plan VTE Prophylaxis VTE Prophylaxis Intervention: heparin Lines/Catheters IV Catheter Type (from Nrsg): Peripheral IV Assessment/Plan Chief Complaint/Hosp Course Assessment and plan 1. Abdominal pain likely secondary to ileus. Surgeon to follow. GI following. s/ p EGD. advance diet per surgeon recs 2. 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 Cont with oncologist recs 3. History of distal esophagitis and distress. We'll continue on PPI 4. Iron deficiency anemia. We'll resume patient's iron supplement 5. History of hypertension. We'll continue on antihypertensives and adjust as needed 6. Recent history of UTI. Continue on Cipro Disposition and plan: advance diet per surgeon recs. Continue inpatient monitoring. Monitor see if able can tolerate advanced diet. Possible surgical intervention per surgeon Discussed plan of care with Dr. Roberts Problems: Subjective 24 Hr Interval Summary Free Text/Dictation still reports having some abdominal discomfort. states he is tolerating liquid diet well. Exam/Review of Systems Vital Signs Vitals Vital Signs Date Time Temp Pulse Resp B/P Pulse Ox O2 Delivery O2 Flow Rate FiO2 04/05/16 07:48 98.1 86 20 131/69 95 04/04/16 21:05 Nasal Cannula 2.0 Intake and Output 04/04/16 04/04/16 04/05/16 14:59 22:59 06:59 Intake Total 1680 ml 1700 ml Output Total 1050 ml Balance 1680 ml 650 ml Exam General: No acute signs or symptoms of distress Eyes: pupils equal round, Anicteric sclera Neck: Supple nontender, no JVD Cardiac: S1, S2 auscultated, regular rhythm and rate Pulmonary: No coarse rhonchi or breathing auscultated GI: minimally tender Extremities: No edema bilateral lower extremities Skin: Clean dry and intact Neurologic: Alert to person place and time and situation Results Result Diagram: 04/05/16 0715 04/05/16 0715 Results 24 hrs Laboratory Tests Test 04/04/16 18:43 04/05/16 07:15 Ferritin 42.1 Iron Level 12 L Percent Iron Saturation 7 L Total Iron Binding Capacity 179 L Anion Gap 9 # Basophils # 0.0 Basophils % 0.1 Blood Morphology Comment Blood Urea Nitrogen 21 H Calcium Level 7.1 L Carbon Dioxide Level 29 Chloride Level 98 Creatinine 0.55 L Eosinophils # 0.0 Eosinophils % 0.3 Glucose Level 78 Hematocrit 27.6 L Hemoglobin 8.9 L Lymphocytes # 0.4 L Lymphocytes % 7.0 L Mean Corpuscular Hemoglobin 23.0 L Mean Corpuscular Hemoglobin Concent 32.1 Mean Corpuscular Volume 71.4 L Mean Platelet Volume 7.5 Monocytes # 0.5 Monocytes % 8.9 Neutrophils # 4.8 Neutrophils % 83.7 H Nucleated Red Blood Cells # 0.0 Nucleated Red Blood Cells % 0.0 Platelet Count 311 Potassium Level 3.9 Red Blood Count 3.86 L Red Cell Distribution Width 15.9 H Sodium Level 132 L White Blood Count 5.7 Medications Medications Current Medications Ondansetron HCl (Zofran Inj) 4 mg Q6H PRN IV NAUSEA AND/OR VOMITING Last administered on 04/03/16 09:20; Admin Dose 4 MG; Start 04/01/16 at 19:30 Acetaminophen (Tylenol Tab) 650 mg Q6H PRN PO PAIN LEVEL 1-3 OR FEVER Last administered on 04/03/16 19:12; Admin Dose 650 MG; Start 04/01/16 at 19:30 Acetaminophen/ Hydrocodone Bitart ([place] (5/325)) 1 tab Q6H PRN PO MODERATE PAIN LEVEL 4-6; Start 04/01/16 at 19:30 Morphine Sulfate (morphine) 2 mg Q4H PRN IV SEVERE PAIN LEVEL 7-10 Last administered on 04/03/16 09:20; Admin Dose 2 MG; Start 04/01/16 at 19:30 Docusate Sodium (Colace) 100 mg Q12H PRN PO CONSTIPATION; Start 04/01/16 at 19: 30 Magnesium Hydroxide (Milk Of Mag) 30 ml DAILY PRN PO CONSTIPATION Last administered on 04/04/16 23:30; Admin Dose 30 ML; Start 04/01/16 at 19:30 Sodium Biphosphate/ Sodium Phosphate (Fleet Enema) 133 ml DAILY PRN [place] CONSTIPATION Last administered on 04/03/16 09:00; Admin Dose 133 ML; Start 04/01 at 19:30 Heparin Sodium (Porcine) 5000 unit 5,000 unit Q12 SC Last administered on 08:38; Admin Dose 5,000 UNIT; Start 04/01/16 at 21:00 Sodium Chloride (1/2 NS) 1,000 ml @ 75 mls/hr [id number] IV Last administered on 04/05/16 06:01; Admin Dose 75 MLS/HR; Start 04/01/16 at 19:04 Lorazepam (Ativan) 0.5 mg Q6H PRN IV ANXIETY Last administered on 04/03/16 12: 14; Admin Dose 0.5 MG; Start 04/01/16 at 19:30 Hydralazine HCl (Apresoline) 10 mg Q6H PRN IV ELEVATED BLOOD PRESSURE; Start at 19:30 Nitroglycerin (Nitroglycerin (Sl Tab) 0.4 Mg) 1 tab Q5M PRN SL ANGINA; Start at 19:30 Pantoprazole (Protonix Iv) 40 mg BID@06,18 IV Last administered on 04/05/16 06: 01; Admin Dose 40 MG; Start 04/02/16 at 18:00 Morphine Sulfate (morphine) 4 mg Q4H PRN IV PAIN Last administered on 23:23; Admin Dose 4 MG; Start 04/02/16 at 22:00 Metoclopramide HCl (Reglan) 10 mg Q6 IV Last administered on 04/05/16 12:53; Admin Dose 10 MG; Start 04/03/16 at 00:00 Hydromorphone HCl (Dilaudid) 0.5 mg Q4H PRN IV PAIN Last administered on 10:27; Admin Dose 0.5 MG; Start 04/03/16 at 14:30 Fluconazole (Diflucan) 100 mg DAILY PO Last administered on 04/05/16 08:36; Admin Dose 100 MG; Start 04/03/16 at 19:30 Ferrous Sulfate 325 mg 325 mg TID PO Last administered on 04/05/16 12:53; Admin Dose 325 MG; Start 04/04/16 at 13:00 Ferric Sodium Gluconate Complex/ Sodium Chloride (Ferrlecit/NS) 110 ml @ 110 mls/hr Q24H IVPB Last administered on 04/04/16 21:15; Admin Dose 110 MLS/HR; Start 04/04/16 at 20:00; Stop 04/08/16 at 20:59 REGIDOR,GLORY Apr 05, 2016 13:57
[2016-04-05] MEDS: SOD FERRIC GLUC COMPLX 125 MG in SOD CHLORIDE 0.9% 100 ML IVPB SCH (19:45)
[2016-04-05 22:01] VITALS: BP 163/75; RESP 20
[2016-04-06] MEDS: HYDROmorphONE 1 MG/ML SYG IV PRN ×6 (02:34→23:12)
[2016-04-06] MEDS: METOCLOPRAMIDE 10 MG INJ IV SCH ×3 (05:43→17:41)
[2016-04-06] MEDS: PANTOPRAZOLE 40 MG INJ IV SCH (05:44)
[2016-04-06] MEDS: SOD CHLORIDE 0.45% 1,000 ML IV SCH ×2 (05:49→09:14)
[2016-04-06 07:15] VITALS: BP 128/63; RESP 18
--- NOTE | 2016-04-06 08:33 | CONS ---
Date/Time of Note Date/Time of Note DATE: 04/06/16 TIME: 08:32 Assessment/Plan Assessment/Plan Additional Assessment/Plan Abdominal pain, evaluate ileus versus PUD, resolved * CT abdomen 04-02-16: Stomach and bowel: There is increasing air and fluid distension and organization of multiple segments of small bowel but there is also stool seen throughout the colon which is moderately distended. The pattern is therefore most compatible with a severe ileus. The stomach appears unremarkable. * PPI twice daily Nausea Vomiting * EGD 06-08-15: . Distal esophagitis. 2. Gastritis. 3 biopsies negative for malignancy and H. pylori infection. * EGD 04-03-16: 1. Severe ulcerated esophagitis, rule out carmina esophagitis, biopsies obtained. 2. Gastritis, rule out Helicobacter pylori infection, biopsies obtained. 3. Extrinsic compression of the stomach. * Continue PPI therapy and Diflucan * Review CT of the abdomen to evaluate possibility of of intraabdominal carcinomatosis. Anemia * Monitor H&H every 6 hours, transfuse 2 units for hemoglobin less than 7.5 History of rectal cancer * Colonoscopy 06-08-15: IMPRESSION: Large obstructing mass, proximal rectum, clearly malignant in nature. Biopsies obtained. Unable to safely advance the colonoscope beyond this point. The distal margin of the mass was located at 12 cm from the anal verge. * Colonoscopy 04-03-16: Large obstructing mass, rectosigmoid at 15 cm. Biopsies obtained. * Surgery following, abdominal surgery planned for Friday Further recommendations depend on clinical course Patient seen in collaboration with Dr. Mason Consultation Date/Type/Reason Admit Date/Time Apr 01, 2016 at 18:54 Initial Consult Date 04/01/16 Type of Consultation: GI Referring Provider: LINDA WALDROP MD 24 HR Interval Summary Free Text/Dictation Tolerating clears Denies abdominal pain, nausea, vomiting Abdominal surgery scheduled for Friday Exam/Review of Systems Vital Signs Vitals Vital Signs Date Time Temp Pulse Resp B/P Pulse Ox O2 Delivery O2 Flow Rate FiO2 04/06/16 07:15 98.2 76 18 128/63 100 04/04/16 21:05 Nasal Cannula 2.0 Intake and Output 04/05/16 04/05/16 04/06/16 15:00 23:00 07:00 Intake Total 2240 ml 1700 ml Output Total 1150 ml Balance 2240 ml 550 ml Exam Constitutional: alert, oriented, other (Thin) Psych: nl mood/affect Head: atraumatic Eyes: EOMI, nl conjunctiva, nl lids, nl sclera ENMT: mucosa pink and moist, nl external ears & nose, nl lips & teeth, nl nasal mucosa & septum Respiratory: normal air movement Cardiovascular: regular rate and rhythm Gastrointestinal: non-tender, soft Neurological: PACKAGE CRIMPER II-XII intact Results Result Diagram: 04/05/16 0715 04/05/16 0715 Medications Medications Current Medications Ondansetron HCl (Zofran Inj) 4 mg Q6H PRN IV NAUSEA AND/OR VOMITING Last administered on 04/03/16 09:20; Admin Dose 4 MG; Start 04/01/16 at 19:30 Acetaminophen (Tylenol Tab) 650 mg Q6H PRN PO PAIN LEVEL 1-3 OR FEVER Last administered on 04/03/16 19:12; Admin Dose 650 MG; Start 04/01/16 at 19:30 Acetaminophen/ Hydrocodone Bitart ([place] (5/325)) 1 tab Q6H PRN PO MODERATE PAIN LEVEL 4-6; Start 04/01/16 at 19:30 Morphine Sulfate (morphine) 2 mg Q4H PRN IV SEVERE PAIN LEVEL 7-10 Last administered on 04/03/16 09:20; Admin Dose 2 MG; Start 04/01/16 at 19:30 Docusate Sodium (Colace) 100 mg Q12H PRN PO CONSTIPATION; Start 04/01/16 at 19: 30 Magnesium Hydroxide (Milk Of Mag) 30 ml DAILY PRN PO CONSTIPATION Last administered on 04/04/16 23:30; Admin Dose 30 ML; Start 04/01/16 at 19:30 Sodium Biphosphate/ Sodium Phosphate (Fleet Enema) 133 ml DAILY PRN [place] CONSTIPATION Last administered on 04/03/16 09:00; Admin Dose 133 ML; Start 04/01 at 19:30 Heparin Sodium (Porcine) 5000 unit 5,000 unit Q12 SC Last administered on 21:10; Admin Dose 5,000 UNIT; Start 04/01/16 at 21:00 Sodium Chloride (1/2 NS) 1,000 ml @ 75 mls/hr [id number] IV Last administered on 04/06/16 05:49; Admin Dose 75 MLS/HR; Start 04/01/16 at 19:04 Lorazepam (Ativan) 0.5 mg Q6H PRN IV ANXIETY Last administered on 04/03/16 12: 14; Admin Dose 0.5 MG; Start 04/01/16 at 19:30 Hydralazine HCl (Apresoline) 10 mg Q6H PRN IV ELEVATED BLOOD PRESSURE; Start at 19:30 Nitroglycerin (Nitroglycerin (Sl Tab) 0.4 Mg) 1 tab Q5M PRN SL ANGINA; Start at 19:30 Pantoprazole (Protonix Iv) 40 mg BID@06,18 IV Last administered on 04/06/16 05: 44; Admin Dose 40 MG; Start 04/02/16 at 18:00 Morphine Sulfate (morphine) 4 mg Q4H PRN IV PAIN Last administered on 23:23; Admin Dose 4 MG; Start 04/02/16 at 22:00 Metoclopramide HCl (Reglan) 10 mg Q6 IV Last administered on 04/06/16 05:43; Admin Dose 10 MG; Start 04/03/16 at 00:00 Hydromorphone HCl (Dilaudid) 0.5 mg Q4H PRN IV PAIN Last administered on 07:02; Admin Dose 0.5 MG; Start 04/03/16 at 14:30 Fluconazole (Diflucan) 100 mg DAILY PO Last administered on 04/05/16 08:36; Admin Dose 100 MG; Start 04/03/16 at 19:30 Ferrous Sulfate 325 mg 325 mg TID PO Last administered on 04/05/16 21:08; Admin Dose 325 MG; Start 04/04/16 at 13:00 Ferric Sodium Gluconate Complex/ Sodium Chloride (Ferrlecit/NS) 110 ml @ 110 mls/hr Q24H IVPB Last administered on 04/05/16 19:45; Admin Dose 110 MLS/HR; Start 04/04/16 at 20:00; Stop 04/08/16 at 20:59 DOLORES CASTRO Apr 06, 2016 08:33
[2016-04-06 08:52] LABS: POTASSIUM 3.5 mmol/L (3.5-5.1)
[2016-04-06 08:55] LABS: CREATININE 0.53 mg/dl (0.61-1.24)
[2016-04-06 08:56] LABS: CALCIUM 7.1 mg/dl (8.4-10.2)
[2016-04-06] MEDS: FERROUS SULFATE (EC) 325 MG TAB PO SCH ×3 (09:02→20:17)
[2016-04-06] MEDS: FLUCONAZOLE 100 MG TAB PO SCH (09:02)
[2016-04-06] MEDS: HEPARIN 5,000 UNIT/0.5 ML SYG SC SCH ×2 (09:07→20:21)
[2016-04-06 10:47] LABS: HEMATOCRIT 25.6 % (42.0-52.0); HEMOGLOBIN 7.9 g/dl (14.0-18.0); RED BLOOD COUNT 3.58 10^6/ul (4.70-6.10); WHITE BLOOD COUNT 5.3 10^3/ul (4.8-10.8)
[2016-04-06 10:48] LABS: BASOPHILS % 0.2 % (0.0-2.0); EOSINOPHILS % 0.6 % (0.0-7.0); LYMPHOCYTES # 0.4 10^3/ul (0.8-2.9); MEAN CORPUSCULAR HEMOGLOBIN 22.1 pg (29.0-33.0); MEAN CORPUSCULAR HGB CONC 30.9 g/dl (32.0-37.0); MEAN CORPUSCULAR VOLUME 71.5 fl (82.0-101.0); MEAN PLATELET VOLUME 9.6 fl (7.4-10.4); MONOCYTES % 9.1 % (0.0-11.0); NEUTROPHIL # 4.3 10^3/ul (1.6-7.5); NEUTROPHILS % 81.5 % (39.0-77.0); PLATELET COUNT 276 10^3/UL (140-440); RED CELL DISTRIBUTION WIDTH 15.3 % (11.5-14.5)
[2016-04-06 10:49] LABS: MONOCYTE # 0.5 10^3/ul (0.3-0.9)
--- NOTE | 2016-04-06 13:19 | PN ---
Date/Time of Note Date/Time of Note DATE: 04/06/16 TIME: 13:18 Assessment/Plan VTE Prophylaxis VTE Prophylaxis Intervention: heparin Lines/Catheters IV Catheter Type (from Nrsg): Peripheral IV Assessment/Plan Chief Complaint/Hosp Course Assessment and plan 1. Abdominal pain likely secondary to ileus. Surgeon to follow. GI following. s/ p EGD. advance diet per surgeon recs 2. 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 Cont with oncologist recs 3. History of distal esophagitis and distress. We'll continue on PPI 4. Iron deficiency anemia. We'll resume patient's iron supplement 5. History of hypertension. We'll continue on antihypertensives and adjust as needed 6. Recent history of UTI. Continue on Cipro Disposition and plan: Possible surgical intervention per surgeon. cont analgesics for pain. advance diet per surgeon. cont inpatient monitoring Discussed plan of care with Dr. Carreon Problems: Subjective 24 Hr Interval Summary Free Text/Dictation still some abd discomfort. no other specific complaints. Exam/Review of Systems Vital Signs Vitals Vital Signs Date Time Temp Pulse Resp B/P Pulse Ox O2 Delivery O2 Flow Rate FiO2 04/06/16 07:15 98.2 76 18 128/63 100 04/04/16 21:05 Nasal Cannula 2.0 Intake and Output 04/05/16 04/05/16 04/06/16 15:00 23:00 07:00 Intake Total 2240 ml 1700 ml Output Total 1150 ml Balance 2240 ml 550 ml Exam General: No acute signs or symptoms of distress Eyes: pupils equal round, Anicteric sclera Neck: Supple nontender, no JVD Cardiac: S1, S2 auscultated, regular rhythm and rate Pulmonary: No coarse rhonchi or breathing auscultated GI: minimally tender Extremities: No edema bilateral lower extremities Skin: Clean dry and intact Neurologic: Alert to person place and time and situation Results Result Diagram: 04/06/16 0810 04/06/16 0810 Results 24 hrs Laboratory Tests Test 04/06/16 08:10 Anion Gap 8 Basophils # 0.0 Basophils % 0.2 Blood Urea Nitrogen 9 # Calcium Level 7.1 L Carbon Dioxide Level 28 Chloride Level 98 Creatinine 0.53 L Eosinophils # 0.0 Eosinophils % 0.6 Glucose Level 81 Hematocrit 25.6 L Hemoglobin 7.9 L Lymphocytes # 0.4 L Lymphocytes % 8.0 L Mean Corpuscular Hemoglobin 22.1 L Mean Corpuscular Hemoglobin Concent 30.9 L Mean Corpuscular Volume 71.5 L Mean Platelet Volume 9.6 # Monocytes # 0.5 Monocytes % 9.1 Neutrophils # 4.3 Neutrophils % 81.5 H Nucleated Red Blood Cells # 0.0 Nucleated Red Blood Cells % 0.0 Platelet Count 276 Potassium Level 3.5 Red Blood Count 3.58 L Red Cell Distribution Width 15.3 H Sodium Level 130 L White Blood Count 5.3 Medications Medications Current Medications Ondansetron HCl (Zofran Inj) 4 mg Q6H PRN IV NAUSEA AND/OR VOMITING Last administered on 04/03/16 09:20; Admin Dose 4 MG; Start 04/01/16 at 19:30 Acetaminophen (Tylenol Tab) 650 mg Q6H PRN PO PAIN LEVEL 1-3 OR FEVER Last administered on 04/03/16 19:12; Admin Dose 650 MG; Start 04/01/16 at 19:30 Acetaminophen/ Hydrocodone Bitart ([place] (5/325)) 1 tab Q6H PRN PO MODERATE PAIN LEVEL 4-6; Start 04/01/16 at 19:30 Morphine Sulfate (morphine) 2 mg Q4H PRN IV SEVERE PAIN LEVEL 7-10 Last administered on 04/03/16 09:20; Admin Dose 2 MG; Start 04/01/16 at 19:30 Docusate Sodium (Colace) 100 mg Q12H PRN PO CONSTIPATION; Start 04/01/16 at 19: 30 Magnesium Hydroxide (Milk Of Mag) 30 ml DAILY PRN PO CONSTIPATION Last administered on 04/04/16 23:30; Admin Dose 30 ML; Start 04/01/16 at 19:30 Sodium Biphosphate/ Sodium Phosphate (Fleet Enema) 133 ml DAILY PRN [place] CONSTIPATION Last administered on 04/03/16 09:00; Admin Dose 133 ML; Start 04/01 at 19:30 Heparin Sodium (Porcine) 5000 unit 5,000 unit Q12 SC Last administered on 09:07; Admin Dose 5,000 UNIT; Start 04/01/16 at 21:00 Sodium Chloride (1/2 NS) 1,000 ml @ 75 mls/hr [id number] IV Last administered on 04/06/16 09:14; Admin Dose 75 MLS/HR; Start 04/01/16 at 19:04 Lorazepam (Ativan) 0.5 mg Q6H PRN IV ANXIETY Last administered on 04/03/16 12: 14; Admin Dose 0.5 MG; Start 04/01/16 at 19:30 Hydralazine HCl (Apresoline) 10 mg Q6H PRN IV ELEVATED BLOOD PRESSURE; Start at 19:30 Nitroglycerin (Nitroglycerin (Sl Tab) 0.4 Mg) 1 tab Q5M PRN SL ANGINA; Start at 19:30 Pantoprazole (Protonix Iv) 40 mg BID@06,18 IV Last administered on 04/06/16 05: 44; Admin Dose 40 MG; Start 04/02/16 at 18:00 Morphine Sulfate (morphine) 4 mg Q4H PRN IV PAIN Last administered on 23:23; Admin Dose 4 MG; Start 04/02/16 at 22:00 Metoclopramide HCl (Reglan) 10 mg Q6 IV Last administered on 04/06/16 12:58; Admin Dose 10 MG; Start 04/03/16 at 00:00 Fluconazole (Diflucan) 100 mg DAILY PO Last administered on 04/06/16 09:02; Admin Dose 100 MG; Start 04/03/16 at 19:30 Ferrous Sulfate 325 mg 325 mg TID PO Last administered on 04/06/16 13:01; Admin Dose 325 MG; Start 04/04/16 at 13:00 Ferric Sodium Gluconate Complex/ Sodium Chloride (Ferrlecit/NS) 110 ml @ 110 mls/hr Q24H IVPB Last administered on 04/05/16 19:45; Admin Dose 110 MLS/HR; Start 04/04/16 at 20:00; Stop 04/08/16 at 20:59 Hydromorphone HCl (Dilaudid) 1 mg Q4H PRN IV PAIN; Start 04/06/16 at 14:30 Oxycodone/ Acetaminophen (Percocet (5/ 325)) 2 tab Q4H PRN PO PAIN; Start at 11:30 GLORY CHEW Apr 06, 2016 13:19
--- NOTE | 2016-04-06 14:27 | PN ---
Date/Time of Note Date/Time of Note DATE: 04/06/16 TIME: 14:26 Assessment/Plan Lines/Catheters IV Catheter Type (from [facility]): Peripheral IV Assessment/Plan Assessment/Plan [facility] Progress Note Date of Service: 04/06/16 Today's Impression & Plan: Overall stable with partial SBO vs ileus in the setting of rectosigmoid malignancy. Appears to be able to pass liquids through his GI tract. Awaiting further decompression of the intestine prior to scheduled surgical intervention early next week. With above assessment, I've recommended the following for today: 1. Continue current cares 2. If tolerates liquids, will consider short period of nutritional support prior to possible surgery 3. Difficult to prep if obstructed; will have to see how he does over the weekend Thank you again for your great care of this very pleasant patient and wonderful family. If there are any questions, please feel free to call me at [phone]. TOTAL VISIT TIME: 20 minutes of which more than half was spent in [id number] discussion with the patient, possibly including family, as well as coordination of care between multiple physicians and providers. Disclaimer: Inadvertent spelling or grammatical errors are likely due to EHR/ dictation software use and do not reflect on the overall quality of patient care. Updated Clinical Summary: A very-pleasant 65-year-old gentleman with comorbidities including hypertension , who was initially admitted to [facility] through ED on 06/05/2015 with signs and symptoms consistent with anemia that eventually was shown to be a large, nearly obstructing mass approximately 12 cm from the anal verge up to the area of the rectosigmoid junction on colonoscopy 06/07/2015. Plan at that time was neoadjuvant treatment with chemoradiation followed by restaging and surgical resection. Patient underwent radiation therapy (Dr. Aranda) that ended September 2015 (patient's recollection was November 2015). Discussions with multiple colleagues revealed evidence that the patient had been not following instructions and there were barriers to get the patient to surgical intervention. At least part of the barriers were due to patient factors alone. Patient reported having contacted my office approximately 5 times to try and make an appointment and was told that we "do not except" his insurance. Careful review of office records showed no documentation of patient calling during this timeframe. Patient also believes that he had and [employer] as his insurance carrier, but his insurance carrier was [employer] (accepted by our program). Patient represented to [facility] through ED with constipation, vomiting , abdominal distension and dilated loops of small intestine on 04/01/16. Significant comorbidities included not insignificant malnutrition with BMI 15.8 and prehydration, albumin of 3.6 in the setting of inability to feed enterically. Small area of liver in segment 6 and two very small areas in segment 4a of questionable significance (too small to tell) benign path vs. metastatic disease. Comorbidity List: 1. Rectal malignancy, s/p chemotherapy and radiation June to Nov 2015 2. Hypertension 3. Cachexia 4. Colonoscopy June 2015 Subjective: No reported major events or complaints; no major reported abd pain and under control with medications; report and feels improved; no n/v/d; no sob or cp; minimal flatus; + BM (small); + activity Objective: Vitals: See below Exam: GENERAL: On exam, the patient was sitting laying in bed and appeared to be comfortable and in no acute distress. ABDOMEN: Soft, nontender and nondistended. There are no peritoneal signs or guarding. SKIN: Skin appears to be pink and feels warm to touch. NEUROLOGIC: Patient is awake, alert, and follows commands appropriately. Exam/Review of Systems Vital Signs Vitals Vital Signs Date Time Temp Pulse Resp B/P Pulse Ox O2 Delivery O2 Flow Rate FiO2 04/06/16 07:15 98.2 76 18 128/63 100 04/04/16 21:05 Nasal Cannula 2.0 Intake and Output 04/05/16 04/05/16 04/06/16 15:00 23:00 07:00 Intake Total 2240 ml 1700 ml Output Total 1150 ml Balance 2240 ml 550 ml Results Result Diagram: 04/06/16 0810 04/06/16 0810 DIVINE BEY M.D. Apr 06, 2016 14:27
[2016-04-06] MEDS: PANTOPRAZOLE (EC) 40 MG TAB PO SCH (18:08)
[2016-04-06 19:00] VITALS: BP 150/68; RESP 19
--- NOTE | 2016-04-06 19:21 | CONS ---
Date/Time of Note Date/Time of Note DATE: 04/06/16 TIME: 19:18 Assessment/Plan Assessment/Plan Chief Complaint/Hosp Course ABD PAIN, vomiting, and constipation- SBO VS ILEUS conservative management for now SURG F-UP POS SURGERY ON FRIDAY RECTAL ADENOCARCINOMA- POST chemo/xrt CEA-N NONCOMPLIANT WITH SURGICAL F-UP R/O RECURRENCE OF MALIGNANCY REASON FOR ILEUS VS SBO AGREE WITH restaging; include a liver CT and pelvic MRI SEVERE IRON DEFICIENCY WITH Microcytic, hypochromic anemia. MONITOR BLOOD COUNT CLOSELY h/h- dropping no bleeding on IV IRON may need PRBC tomorrow Distal esophagitis with gastritis. Continue proton pump inhibitors. HTN POOR COMPLIANCE Problems: Consultation Date/Type/Reason Admit Date/Time Apr 01, 2016 at 18:54 Type of Consultation: hemeon Referring Provider: LINDA WALDROP MD 24 HR Interval Summary Free Text/Dictation all noted Overall stable with partial SBO vs ileus in the setting of rectosigmoid malignancy. able to pass liquids through his GI tract. pos surgical intervention early next week. h/h- dropping no bleeding on IV IRON may need PRBC tomorrow Exam/Review of Systems Vital Signs Vitals Vital Signs Date Time Temp Pulse Resp B/P Pulse Ox O2 Delivery O2 Flow Rate FiO2 04/06/16 07:15 98.2 76 18 128/63 100 04/04/16 21:05 Nasal Cannula 2.0 Intake and Output 04/05/16 04/05/16 04/06/16 15:00 23:00 07:00 Intake Total 2240 ml 1700 ml Output Total 1150 ml Balance 2240 ml 550 ml Results Result Diagram: 04/06/16 0810 04/06/16 0810 Results 24 hrs Laboratory Tests Test 04/06/16 08:10 Anion Gap 8 Basophils # 0.0 Basophils % 0.2 Blood Urea Nitrogen 9 # Calcium Level 7.1 L Carbon Dioxide Level 28 Chloride Level 98 Creatinine 0.53 L Eosinophils # 0.0 Eosinophils % 0.6 Glucose Level 81 Hematocrit 25.6 L Hemoglobin 7.9 L Lymphocytes # 0.4 L Lymphocytes % 8.0 L Mean Corpuscular Hemoglobin 22.1 L Mean Corpuscular Hemoglobin Concent 30.9 L Mean Corpuscular Volume 71.5 L Mean Platelet Volume 9.6 # Monocytes # 0.5 Monocytes % 9.1 Neutrophils # 4.3 Neutrophils % 81.5 H Nucleated Red Blood Cells # 0.0 Nucleated Red Blood Cells % 0.0 Platelet Count 276 Potassium Level 3.5 Red Blood Count 3.58 L Red Cell Distribution Width 15.3 H Sodium Level 130 L White Blood Count 5.3 Medications Medications Current Medications Ondansetron HCl (Zofran Inj) 4 mg Q6H PRN IV NAUSEA AND/OR VOMITING Last administered on 04/03/16 09:20; Admin Dose 4 MG; Start 04/01/16 at 19:30 Acetaminophen (Tylenol Tab) 650 mg Q6H PRN PO PAIN LEVEL 1-3 OR FEVER Last administered on 04/03/16 19:12; Admin Dose 650 MG; Start 04/01/16 at 19:30 Acetaminophen/ Hydrocodone Bitart (Arpin (5/325)) 1 tab Q6H PRN PO MODERATE PAIN LEVEL 4-6; Start 04/01/16 at 19:30 Morphine Sulfate (morphine) 2 mg Q4H PRN IV SEVERE PAIN LEVEL 7-10 Last administered on 04/03/16 09:20; Admin Dose 2 MG; Start 04/01/16 at 19:30 Docusate Sodium (Colace) 100 mg Q12H PRN PO CONSTIPATION; Start 04/01/16 at 19: 30 Magnesium Hydroxide (Milk Of Mag) 30 ml DAILY PRN PO CONSTIPATION Last administered on 04/04/16 23:30; Admin Dose 30 ML; Start 04/01/16 at 19:30 Sodium Biphosphate/ Sodium Phosphate (Fleet Enema) 133 ml DAILY PRN [place] CONSTIPATION Last administered on 04/03/16 09:00; Admin Dose 133 ML; Start 04/01 at 19:30 Heparin Sodium (Porcine) 5000 unit 5,000 unit Q12 SC Last administered on 09:07; Admin Dose 5,000 UNIT; Start 04/01/16 at 21:00 Sodium Chloride (1/2 NS) 1,000 ml @ 75 mls/hr [id number] IV Last administered on 04/06/16 09:14; Admin Dose 75 MLS/HR; Start 04/01/16 at 19:04 Lorazepam (Ativan) 0.5 mg Q6H PRN IV ANXIETY Last administered on 04/03/16 12: 14; Admin Dose 0.5 MG; Start 04/01/16 at 19:30 Hydralazine HCl (Apresoline) 10 mg Q6H PRN IV ELEVATED BLOOD PRESSURE; Start at 19:30 Nitroglycerin (Nitroglycerin (Sl Tab) 0.4 Mg) 1 tab Q5M PRN SL ANGINA; Start at 19:30 Morphine Sulfate (morphine) 4 mg Q4H PRN IV PAIN Last administered on 23:23; Admin Dose 4 MG; Start 04/02/16 at 22:00 Metoclopramide HCl (Reglan) 10 mg Q6 IV Last administered on 04/06/16 17:41; Admin Dose 10 MG; Start 04/03/16 at 00:00 Fluconazole (Diflucan) 100 mg DAILY PO Last administered on 04/06/16 09:02; Admin Dose 100 MG; Start 04/03/16 at 19:30 Ferrous Sulfate 325 mg 325 mg TID PO Last administered on 04/06/16 13:01; Admin Dose 325 MG; Start 04/04/16 at 13:00 Ferric Sodium Gluconate Complex/ Sodium Chloride (Ferrlecit/NS) 110 ml @ 110 mls/hr Q24H IVPB Last administered on 04/05/16 19:45; Admin Dose 110 MLS/HR; Start 04/04/16 at 20:00; Stop 04/08/16 at 20:59 Hydromorphone HCl (Dilaudid) 1 mg Q4H PRN IV PAIN Last administered on 18:08; Admin Dose 1 MG; Start 04/06/16 at 14:30 Oxycodone/ Acetaminophen (Percocet (5/ 325)) 2 tab Q4H PRN PO PAIN; Start at 11:30 Pantoprazole (Protonix Tab) 40 mg BID@06,18 PO Last administered on 04/06/16 18 :08; Admin Dose 40 MG; Start 04/06/16 at 18:00 JASMINA PALOMARES MD Apr 06, 2016 19:21
[2016-04-06] MEDS: SOD FERRIC GLUC COMPLX 125 MG in SOD CHLORIDE 0.9% 100 ML IVPB SCH (19:53)
[2016-04-06] MEDS: OXYCODONE/ACETAMINOPHEN (5/325) TAB PO PRN (20:17)
[2016-04-07] MEDS: HYDROmorphONE 1 MG/ML SYG IV PRN ×4 (04:31→21:14)
[2016-04-07] MEDS: PANTOPRAZOLE (EC) 40 MG TAB PO SCH ×2 (05:58→19:30)
[2016-04-07] MEDS: METOCLOPRAMIDE 10 MG INJ IV SCH ×4 (05:58→19:30)
[2016-04-07 07:27] VITALS: BP 139/66; PULSE 76; RESP 16
[2016-04-07] MEDS: OXYCODONE/ACETAMINOPHEN (5/325) TAB PO PRN ×3 (08:32→19:42)
[2016-04-07] MEDS: SOD CHLORIDE 0.45% 1,000 ML IV SCH ×3 (08:32→13:48)
[2016-04-07] MEDS: FLUCONAZOLE 100 MG TAB PO SCH (08:35)
[2016-04-07] MEDS: FERROUS SULFATE (EC) 325 MG TAB PO SCH ×3 (08:36→21:07)
--- NOTE | 2016-04-07 08:36 | CONS ---
Date/Time of Note Date/Time of Note DATE: 04/07/16 TIME: 08:35 Assessment/Plan Assessment/Plan Additional Assessment/Plan Abdominal pain, evaluate ileus versus PUD, resolved * CT abdomen 04-02-16: Stomach and bowel: There is increasing air and fluid distension and organization of multiple segments of small bowel but there is also stool seen throughout the colon which is moderately distended. The pattern is therefore most compatible with a severe ileus. The stomach appears unremarkable. * PPI twice daily Nausea Vomiting * EGD 06-08-15: . Distal esophagitis. 2. Gastritis. 3 biopsies negative for malignancy and H. pylori infection. * EGD 04-03-16: 1. Severe ulcerated esophagitis, rule out carmina esophagitis, biopsies obtained. 2. Gastritis, rule out Helicobacter pylori infection, biopsies obtained. 3. Extrinsic compression of the stomach. * Continue PPI therapy and Diflucan * Review CT of the abdomen to evaluate possibility of of intraabdominal carcinomatosis. Anemia * Monitor H&H every 6 hours, transfuse 2 units for hemoglobin less than 7.5 History of rectal cancer * Colonoscopy 06-08-15: IMPRESSION: Large obstructing mass, proximal rectum, clearly malignant in nature. Biopsies obtained. Unable to safely advance the colonoscope beyond this point. The distal margin of the mass was located at 12 cm from the anal verge. * Colonoscopy 04-03-16: Large obstructing mass, rectosigmoid at 15 cm. Biopsies obtained. * Surgery following, abdominal surgery planned for Friday Further recommendations depend on clinical course Patient seen in collaboration with Dr. Mason Consultation Date/Type/Reason Admit Date/Time Apr 01, 2016 at 18:54 Initial Consult Date 04/01/16 Type of Consultation: Gastroenterology Referring Provider: LINDA WALDROP MD 24 HR Interval Summary Free Text/Dictation Tolerating clears Hemoglobin stable Exam/Review of Systems Vital Signs Vitals Vital Signs Date Time Temp Pulse Resp B/P Pulse Ox O2 Delivery O2 Flow Rate FiO2 04/07/16 07:27 98.5 76 16 139/66 Room Air 04/06/16 19:00 100 04/04/16 21:05 2.0 Intake and Output 04/06/16 04/06/16 04/07/16 15:00 23:00 07:00 Intake Total 1725 ml 900 ml Balance 1725 ml 900 ml Exam Constitutional: alert, oriented, other (Thin) Psych: nl mood/affect Head: atraumatic Eyes: EOMI, nl conjunctiva, nl lids, nl sclera ENMT: mucosa pink and moist, nl external ears & nose, nl lips & teeth, nl nasal mucosa & septum Respiratory: normal air movement Cardiovascular: regular rate and rhythm Gastrointestinal: non-tender, soft Neurological: DEBEAKER II-XII intact Results Result Diagram: 04/06/16 0810 04/06/16 0810 Medications Medications Current Medications Ondansetron HCl (Zofran Inj) 4 mg Q6H PRN IV NAUSEA AND/OR VOMITING Last administered on 04/03/16 09:20; Admin Dose 4 MG; Start 04/01/16 at 19:30 Acetaminophen (Tylenol Tab) 650 mg Q6H PRN PO PAIN LEVEL 1-3 OR FEVER Last administered on 04/03/16 19:12; Admin Dose 650 MG; Start 04/01/16 at 19:30 Acetaminophen/ Hydrocodone Bitart ([place] (5/325)) 1 tab Q6H PRN PO MODERATE PAIN LEVEL 4-6; Start 04/01/16 at 19:30 Morphine Sulfate (morphine) 2 mg Q4H PRN IV SEVERE PAIN LEVEL 7-10 Last administered on 04/03/16 09:20; Admin Dose 2 MG; Start 04/01/16 at 19:30 Docusate Sodium (Colace) 100 mg Q12H PRN PO CONSTIPATION; Start 04/01/16 at 19: 30 Magnesium Hydroxide (Milk Of Mag) 30 ml DAILY PRN PO CONSTIPATION Last administered on 04/04/16 23:30; Admin Dose 30 ML; Start 04/01/16 at 19:30 Sodium Biphosphate/ Sodium Phosphate (Fleet Enema) 133 ml DAILY PRN [place] CONSTIPATION Last administered on 04/03/16 09:00; Admin Dose 133 ML; Start 04/01 at 19:30 Heparin Sodium (Porcine) 5000 unit 5,000 unit Q12 SC Last administered on 20:21; Admin Dose 5,000 UNIT; Start 04/01/16 at 21:00 Sodium Chloride (1/2 NS) 1,000 ml @ 75 mls/hr [id number] IV Last administered on 04/07/16 08:32; Admin Dose 75 MLS/HR; Start 04/01/16 at 19:04 Lorazepam (Ativan) 0.5 mg Q6H PRN IV ANXIETY Last administered on 04/03/16 12: 14; Admin Dose 0.5 MG; Start 04/01/16 at 19:30 Hydralazine HCl (Apresoline) 10 mg Q6H PRN IV ELEVATED BLOOD PRESSURE; Start at 19:30 Nitroglycerin (Nitroglycerin (Sl Tab) 0.4 Mg) 1 tab Q5M PRN SL ANGINA; Start at 19:30 Morphine Sulfate (morphine) 4 mg Q4H PRN IV PAIN Last administered on 23:23; Admin Dose 4 MG; Start 04/02/16 at 22:00 Metoclopramide HCl (Reglan) 10 mg Q6 IV Last administered on 04/07/16 05:58; Admin Dose 10 MG; Start 04/03/16 at 00:00 Fluconazole (Diflucan) 100 mg DAILY PO Last administered on 04/06/16 09:02; Admin Dose 100 MG; Start 04/03/16 at 19:30 Ferrous Sulfate 325 mg 325 mg TID PO Last administered on 04/06/16 20:17; Admin Dose 325 MG; Start 04/04/16 at 13:00 Ferric Sodium Gluconate Complex/ Sodium Chloride (Ferrlecit/NS) 110 ml @ 110 mls/hr Q24H IVPB Last administered on 04/06/16 19:53; Admin Dose 110 MLS/HR; Start 04/04/16 at 20:00; Stop 04/08/16 at 20:59 Hydromorphone HCl (Dilaudid) 1 mg Q4H PRN IV PAIN Last administered on 04:31; Admin Dose 1 MG; Start 04/06/16 at 14:30 Oxycodone/ Acetaminophen (Percocet (5/ 325)) 2 tab Q4H PRN PO PAIN Last administered on 04/07/16 08:32; Admin Dose 2 TAB; Start 04/06/16 at 11:30 Pantoprazole (Protonix Tab) 40 mg BID@06,18 PO Last administered on 04/07/16 05 :58; Admin Dose 40 MG; Start 04/06/16 at 18:00 DOLORES CASTRO Apr 07, 2016 08:36
[2016-04-07] MEDS: HEPARIN 5,000 UNIT/0.5 ML SYG SC SCH ×2 (08:37→21:11)
[2016-04-07 08:58] LABS: BASOPHILS % 0.2 % (0.0-2.0); EOSINOPHILS % 0.3 % (0.0-7.0); HEMATOCRIT 28.3 % (42.0-52.0); HEMOGLOBIN 9.2 g/dl (14.0-18.0); LYMPHOCYTES # 0.5 10^3/ul (0.8-2.9); LYMPHOCYTES % 7.7 % (15.0-51.0); MEAN CORPUSCULAR HEMOGLOBIN 22.9 pg (29.0-33.0); MEAN CORPUSCULAR HGB CONC 32.5 g/dl (32.0-37.0); MEAN CORPUSCULAR VOLUME 70.4 fl (82.0-101.0); MEAN PLATELET VOLUME 7.5 fl (7.4-10.4); MONOCYTE # 0.6 10^3/ul (0.3-0.9); MONOCYTES % 9.6 % (0.0-11.0); NEUTROPHIL # 5.1 10^3/ul (1.6-7.5); NEUTROPHILS % 82.2 % (39.0-77.0); PLATELET COUNT 290 10^3/UL (140-440); RED BLOOD COUNT 4.02 10^6/ul (4.70-6.10); RED CELL DISTRIBUTION WIDTH 15.8 % (11.5-14.5); UNCORRECTED WBC 6.2 10^3/ul (4.8-10.8); WHITE BLOOD COUNT 6.2 10^3/ul (4.8-10.8)
[2016-04-07 09:18] LABS: POTASSIUM 3.7 mmol/L (3.5-5.1)
[2016-04-07 09:19] LABS: CONDITION 1; LH ANALYZER COMMENTS 1
[2016-04-07 09:21] LABS: CREATININE 0.48 mg/dl (0.61-1.24)
[2016-04-07 09:22] LABS: CALCIUM 7.3 mg/dl (8.4-10.2)
--- NOTE | 2016-04-07 12:53 | PN ---
Date/Time of Note Date/Time of Note DATE: 04/07/16 TIME: 12:51 Assessment/Plan VTE Prophylaxis VTE Prophylaxis Intervention: heparin Lines/Catheters IV Catheter Type (from Nrsg): Peripheral IV Assessment/Plan Chief Complaint/Hosp Course Assessment and plan 1. Abdominal pain likely secondary to ileus. Surgeon to follow. GI following. s/ p EGD. diet per surgeon recs 2. 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 Cont with oncologist recs 3. History of distal esophagitis and distress. We'll continue on PPI 4. Iron deficiency anemia. Continue patient's iron supplement 5. History of hypertension. We'll continue on antihypertensives and adjust as needed 6. Recent history of UTI. Continue on Cipro Disposition and plan: Possible surgical intervention per surgeon. cont analgesics for pain. Continue supportive care. Follow-up with consultants recommendations Discussed plan of care with Dr. Carreon Problems: Subjective 24 Hr Interval Summary Free Text/Dictation Reports less abdominal pain at this time. Comfortable at present Exam/Review of Systems Vital Signs Vitals Vital Signs Date Time Temp Pulse Resp B/P Pulse Ox O2 Delivery O2 Flow Rate FiO2 04/07/16 07:27 98.5 76 16 139/66 Room Air 04/06/16 19:00 100 04/04/16 21:05 2.0 Intake and Output 04/06/16 04/06/16 04/07/16 15:00 23:00 07:00 Intake Total 1725 ml 900 ml Balance 1725 ml 900 ml Exam General: No acute signs or symptoms of distress Eyes: pupils equal round, Anicteric sclera Neck: Supple nontender, no JVD Cardiac: S1, S2 auscultated, regular rhythm and rate Pulmonary: No coarse rhonchi or breathing auscultated GI: minimally tender Extremities: No edema bilateral lower extremities Skin: Clean dry and intact Neurologic: Alert to person place and time and situation Results Result Diagram: 04/07/16 0840 04/07/16 0840 Results 24 hrs Laboratory Tests Test 04/07/16 08:40 Anion Gap 10 Basophils # 0.0 Basophils % 0.2 Blood Morphology Comment Blood Urea Nitrogen 7 Calcium Level 7.3 L Carbon Dioxide Level 29 Chloride Level 98 Creatinine 0.48 L Eosinophils # 0.0 Eosinophils % 0.3 Glucose Level 80 Hematocrit 28.3 L Hemoglobin 9.2 L Lymphocytes # 0.5 L Lymphocytes % 7.7 L Mean Corpuscular Hemoglobin 22.9 L Mean Corpuscular Hemoglobin Concent 32.5 Mean Corpuscular Volume 70.4 L Mean Platelet Volume 7.5 # Monocytes # 0.6 Monocytes % 9.6 Neutrophils # 5.1 Neutrophils % 82.2 H Nucleated Red Blood Cells # 0.0 Nucleated Red Blood Cells % 0.0 Platelet Count 290 Potassium Level 3.7 Red Blood Count 4.02 L Red Cell Distribution Width 15.8 H Sodium Level 133 L White Blood Count 6.2 Medications Medications Current Medications Ondansetron HCl (Zofran Inj) 4 mg Q6H PRN IV NAUSEA AND/OR VOMITING Last administered on 04/03/16 09:20; Admin Dose 4 MG; Start 04/01/16 at 19:30 Acetaminophen (Tylenol Tab) 650 mg Q6H PRN PO PAIN LEVEL 1-3 OR FEVER Last administered on 04/03/16 19:12; Admin Dose 650 MG; Start 04/01/16 at 19:30 Acetaminophen/ Hydrocodone Bitart ([place] (5/325)) 1 tab Q6H PRN PO MODERATE PAIN LEVEL 4-6; Start 04/01/16 at 19:30 Morphine Sulfate (morphine) 2 mg Q4H PRN IV SEVERE PAIN LEVEL 7-10 Last administered on 04/03/16 09:20; Admin Dose 2 MG; Start 04/01/16 at 19:30 Docusate Sodium (Colace) 100 mg Q12H PRN PO CONSTIPATION; Start 04/01/16 at 19: 30 Magnesium Hydroxide (Milk Of Mag) 30 ml DAILY PRN PO CONSTIPATION Last administered on 04/04/16 23:30; Admin Dose 30 ML; Start 04/01/16 at 19:30 Sodium Biphosphate/ Sodium Phosphate (Fleet Enema) 133 ml DAILY PRN [place] CONSTIPATION Last administered on 04/03/16 09:00; Admin Dose 133 ML; Start 04/01 at 19:30 Heparin Sodium (Porcine) 5000 unit 5,000 unit Q12 SC Last administered on 08:37; Admin Dose 5,000 UNIT; Start 04/01/16 at 21:00 Sodium Chloride (1/2 NS) 1,000 ml @ 75 mls/hr [id number] IV Last administered on 04/07/16 08:32; Admin Dose 75 MLS/HR; Start 04/01/16 at 19:04 Lorazepam (Ativan) 0.5 mg Q6H PRN IV ANXIETY Last administered on 04/03/16 12: 14; Admin Dose 0.5 MG; Start 04/01/16 at 19:30 Hydralazine HCl (Apresoline) 10 mg Q6H PRN IV ELEVATED BLOOD PRESSURE; Start at 19:30 Nitroglycerin (Nitroglycerin (Sl Tab) 0.4 Mg) 1 tab Q5M PRN SL ANGINA; Start at 19:30 Morphine Sulfate (morphine) 4 mg Q4H PRN IV PAIN Last administered on 23:23; Admin Dose 4 MG; Start 04/02/16 at 22:00 Metoclopramide HCl (Reglan) 10 mg Q6 IV Last administered on 04/07/16 05:58; Admin Dose 10 MG; Start 04/03/16 at 00:00 Fluconazole (Diflucan) 100 mg DAILY PO Last administered on 04/07/16 08:35; Admin Dose 100 MG; Start 04/03/16 at 19:30 Ferrous Sulfate 325 mg 325 mg TID PO Last administered on 04/07/16 08:36; Admin Dose 325 MG; Start 04/04/16 at 13:00 Ferric Sodium Gluconate Complex/ Sodium Chloride (Ferrlecit/NS) 110 ml @ 110 mls/hr Q24H IVPB Last administered on 04/06/16 19:53; Admin Dose 110 MLS/HR; Start 04/04/16 at 20:00; Stop 04/08/16 at 20:59 Hydromorphone HCl (Dilaudid) 1 mg Q4H PRN IV PAIN Last administered on 11:01; Admin Dose 1 MG; Start 04/06/16 at 14:30 Oxycodone/ Acetaminophen (Percocet (5/ 325)) 2 tab Q4H PRN PO PAIN Last administered on 04/07/16 08:32; Admin Dose 2 TAB; Start 04/06/16 at 11:30 Pantoprazole (Protonix Tab) 40 mg BID@06,18 PO Last administered on 04/07/16 05 :58; Admin Dose 40 MG; Start 04/06/16 at 18:00 GLORY CHEW Apr 07, 2016 12:53
--- NOTE | 2016-04-07 13:42 | PN ---
Date/Time of Note Date/Time of Note DATE: 04/07/16 TIME: 13:40 Assessment/Plan Lines/Catheters IV Catheter Type (from [facility]): Peripheral IV Assessment/Plan Assessment/Plan [facility] Progress Note Date of Service: 04/07/16 Today's Impression & Plan: Overall stable with partial SBO vs ileus in the setting of rectosigmoid malignancy. Appears to be tolerating clear liquids through his GI tract. It would be much safer to do the operation with improved nutritional state. Also possible that with better nutritional state and resolution of acute partial obstruction, patient may be eligible for systemic chemo prior to surgical resection. Will d/w Dr. Zapien and team tomorrow. With above assessment, I've recommended the following for today: 1. Continue current cares 2. Full liquid diet 3. May be able to avoid an urgent operation if can tolerate above and postpone surgery to a few weeks from now Thank you again for your great care of this very pleasant patient and wonderful family. If there are any questions, please feel free to call me at [phone]. TOTAL VISIT TIME: 20 minutes of which more than half was spent in [id number] discussion with the patient, possibly including family, as well as coordination of care between multiple physicians and providers. Disclaimer: Inadvertent spelling or grammatical errors are likely due to EHR/ dictation software use and do not reflect on the overall quality of patient care. Updated Clinical Summary: A very-pleasant 65-year-old gentleman with comorbidities including hypertension , who was initially admitted to [facility] through ED on 06/05/2015 with signs and symptoms consistent with anemia that eventually was shown to be a large, nearly obstructing mass approximately 12 cm from the anal verge up to the area of the rectosigmoid junction on colonoscopy 06/07/2015. Plan at that time was neoadjuvant treatment with chemoradiation followed by restaging and surgical resection. Patient underwent radiation therapy (Dr. Aranda) that ended September 2015 (patient's recollection was November 2015). Discussions with multiple colleagues revealed evidence that the patient had been not following instructions and there were barriers to get the patient to surgical intervention. At least part of the barriers were due to patient factors alone. Patient reported having contacted my office approximately 5 times to try and make an appointment and was told that we "do not except" his insurance. Careful review of office records showed no documentation of patient calling during this timeframe. Patient also believes that he had and [employer] as his insurance carrier, but his insurance carrier was [employer] (accepted by our program). Patient represented to [facility] through ED with constipation, vomiting , abdominal distension and dilated loops of small intestine on 04/01/16. Significant comorbidities included not insignificant malnutrition with BMI 15.8 and prehydration, albumin of 3.6 in the setting of inability to feed enterically. Small area of liver in segment 6 and two very small areas in segment 4a of questionable significance (too small to tell) benign path vs. metastatic disease. Comorbidity List: 1. Rectal malignancy, s/p chemotherapy and radiation June to Nov 2015 2. Hypertension 3. Cachexia 4. Colonoscopy June 2015 Subjective: No reported major events or complaints; no major reported abd pain and under control with medications; reports and feels improved; no n/v/d; no sob or cp; + flatus; + BM; + activity Objective: Vitals: See below Exam: GENERAL: On exam, the patient was sitting laying in bed and appeared to be comfortable and in no acute distress. ABDOMEN: Soft, nontender and nondistended. There are no peritoneal signs or guarding. SKIN: Skin appears to be pink and feels warm to touch. NEUROLOGIC: Patient is awake, alert, and follows commands appropriately. Exam/Review of Systems Vital Signs Vitals Vital Signs Date Time Temp Pulse Resp B/P Pulse Ox O2 Delivery O2 Flow Rate FiO2 04/07/16 07:27 98.5 76 16 139/66 Room Air 04/06/16 19:00 100 04/04/16 21:05 2.0 Intake and Output 04/06/16 04/06/16 04/07/16 15:00 23:00 07:00 Intake Total 1725 ml 900 ml Balance 1725 ml 900 ml Results Result Diagram: 04/07/16 0840 04/07/16 0840 DIVINE BEY M.D. Apr 07, 2016 13:42
--- NOTE | 2016-04-07 15:44 | CONS ---
Date/Time of Note Date/Time of Note DATE: 04/07/16 TIME: 15:40 Assessment/Plan Assessment/Plan Chief Complaint/Hosp Course ABD PAIN, vomiting, and constipation- SBO VS ILEUS conservative management for now SURG F-UP TIMING OF SURGERY - PER DR VILLARREAL RECTAL ADENOCARCINOMA- POST chemo/xrt CEA-N NONCOMPLIANT WITH SURGICAL F-UP R/O RECURRENCE OF MALIGNANCY REASON FOR ILEUS VS SBO AGREE WITH restaging; include a liver CT and pelvic MRI SEVERE IRON DEFICIENCY WITH Microcytic, hypochromic anemia. MONITOR BLOOD COUNT CLOSELY h/h- dropping no bleeding on IV IRON PRBC PRN Distal esophagitis with gastritis. Continue proton pump inhibitors. HTN POOR COMPLIANCE Problems: Consultation Date/Type/Reason Admit Date/Time Apr 01, 2016 at 18:54 Type of Consultation: HEMEON Referring Provider: LINDA WALDROP MD 24 HR Interval Summary Free Text/Dictation ALL NOTED COUNT FLUCTUATE NO BLEEDING Exam/Review of Systems Vital Signs Vitals Vital Signs Date Time Temp Pulse Resp B/P Pulse Ox O2 Delivery O2 Flow Rate FiO2 04/07/16 07:27 98.5 76 16 139/66 Room Air 04/06/16 19:00 100 04/04/16 21:05 2.0 Intake and Output 04/06/16 04/06/16 04/07/16 15:00 23:00 07:00 Intake Total 1725 ml 900 ml Balance 1725 ml 900 ml Exam Constitutional: alert, oriented, other (Thin) Psych: nl mood/affect Head: atraumatic Eyes: EOMI, nl conjunctiva, nl lids, nl sclera ENMT: mucosa pink and moist, nl external ears & nose, nl lips & teeth, nl nasal mucosa & septum Respiratory: normal air movement Cardiovascular: regular rate and rhythm Gastrointestinal: non-tender, soft Neurological: [employer] BANKER II-XII intact Results Result Diagram: 04/07/16 0840 04/07/16 0840 Results 24 hrs Laboratory Tests Test 04/07/16 08:40 Anion Gap 10 Basophils # 0.0 Basophils % 0.2 Blood Morphology Comment Blood Urea Nitrogen 7 Calcium Level 7.3 L Carbon Dioxide Level 29 Chloride Level 98 Creatinine 0.48 L Eosinophils # 0.0 Eosinophils % 0.3 Glucose Level 80 Hematocrit 28.3 L Hemoglobin 9.2 L Lymphocytes # 0.5 L Lymphocytes % 7.7 L Mean Corpuscular Hemoglobin 22.9 L Mean Corpuscular Hemoglobin Concent 32.5 Mean Corpuscular Volume 70.4 L Mean Platelet Volume 7.5 # Monocytes # 0.6 Monocytes % 9.6 Neutrophils # 5.1 Neutrophils % 82.2 H Nucleated Red Blood Cells # 0.0 Nucleated Red Blood Cells % 0.0 Platelet Count 290 Potassium Level 3.7 Red Blood Count 4.02 L Red Cell Distribution Width 15.8 H Sodium Level 133 L White Blood Count 6.2 Medications Medications Current Medications Ondansetron HCl (Zofran Inj) 4 mg Q6H PRN IV NAUSEA AND/OR VOMITING Last administered on 04/03/16 09:20; Admin Dose 4 MG; Start 04/01/16 at 19:30 Acetaminophen (Tylenol Tab) 650 mg Q6H PRN PO PAIN LEVEL 1-3 OR FEVER Last administered on 04/03/16 19:12; Admin Dose 650 MG; Start 04/01/16 at 19:30 Acetaminophen/ Hydrocodone Bitart ([place] (5/325)) 1 tab Q6H PRN PO MODERATE PAIN LEVEL 4-6; Start 04/01/16 at 19:30 Morphine Sulfate (morphine) 2 mg Q4H PRN IV SEVERE PAIN LEVEL 7-10 Last administered on 04/03/16 09:20; Admin Dose 2 MG; Start 04/01/16 at 19:30 Docusate Sodium (Colace) 100 mg Q12H PRN PO CONSTIPATION; Start 04/01/16 at 19: 30 Magnesium Hydroxide (Milk Of Mag) 30 ml DAILY PRN PO CONSTIPATION Last administered on 04/04/16 23:30; Admin Dose 30 ML; Start 04/01/16 at 19:30 Sodium Biphosphate/ Sodium Phosphate (Fleet Enema) 133 ml DAILY PRN [place] CONSTIPATION Last administered on 04/03/16 09:00; Admin Dose 133 ML; Start 04/01 at 19:30 Heparin Sodium (Porcine) 5000 unit 5,000 unit Q12 SC Last administered on 08:37; Admin Dose 5,000 UNIT; Start 04/01/16 at 21:00 Sodium Chloride (1/2 NS) 1,000 ml @ 75 mls/hr [id number] IV Last administered on 04/07/16 13:48; Admin Dose 75 MLS/HR; Start 04/01/16 at 19:04 Lorazepam (Ativan) 0.5 mg Q6H PRN IV ANXIETY Last administered on 04/03/16 12: 14; Admin Dose 0.5 MG; Start 04/01/16 at 19:30 Hydralazine HCl (Apresoline) 10 mg Q6H PRN IV ELEVATED BLOOD PRESSURE; Start at 19:30 Nitroglycerin (Nitroglycerin (Sl Tab) 0.4 Mg) 1 tab Q5M PRN SL ANGINA; Start at 19:30 Morphine Sulfate (morphine) 4 mg Q4H PRN IV PAIN Last administered on 23:23; Admin Dose 4 MG; Start 04/02/16 at 22:00 Metoclopramide HCl (Reglan) 10 mg Q6 IV Last administered on 04/07/16 13:42; Admin Dose 10 MG; Start 04/03/16 at 00:00 Fluconazole (Diflucan) 100 mg DAILY PO Last administered on 04/07/16 08:35; Admin Dose 100 MG; Start 04/03/16 at 19:30 Ferrous Sulfate 325 mg 325 mg TID PO Last administered on 04/07/16 13:42; Admin Dose 325 MG; Start 04/04/16 at 13:00 Ferric Sodium Gluconate Complex/ Sodium Chloride (Ferrlecit/NS) 110 ml @ 110 mls/hr Q24H IVPB Last administered on 04/06/16 19:53; Admin Dose 110 MLS/HR; Start 04/04/16 at 20:00; Stop 04/08/16 at 20:59 Hydromorphone HCl (Dilaudid) 1 mg Q4H PRN IV PAIN Last administered on 11:01; Admin Dose 1 MG; Start 04/06/16 at 14:30 Oxycodone/ Acetaminophen (Percocet (5/ 325)) 2 tab Q4H PRN PO PAIN Last administered on 04/07/16 13:49; Admin Dose 2 TAB; Start 04/06/16 at 11:30 Pantoprazole (Protonix Tab) 40 mg BID@06,18 PO Last administered on 04/07/16 05 :58; Admin Dose 40 MG; Start 04/06/16 at 18:00 JASMINA PALOMARES MD Apr 07, 2016 15:43
[2016-04-07 19:17] VITALS: BP 153/75; RESP 18; RESP 82
[2016-04-07] MEDS: SOD FERRIC GLUC COMPLX 125 MG in SOD CHLORIDE 0.9% 100 ML IVPB SCH (19:31)
[2016-04-08] MEDS: METOCLOPRAMIDE 10 MG INJ IV SCH ×2 (00:40→05:33)
[2016-04-08] MEDS: HYDROmorphONE 1 MG/ML SYG IV PRN ×5 (02:28→21:27)
[2016-04-08] MEDS: SOD CHLORIDE 0.45% 1,000 ML IV SCH ×2 (05:13→18:47)
[2016-04-08] MEDS: PANTOPRAZOLE (EC) 40 MG TAB PO SCH ×2 (05:13→18:47)
[2016-04-08] MEDS ORDERED: METOCLOPRAMIDE 10 MG INJ IV PRN (06:00)
[2016-04-08 07:51] LABS: BASOPHILS % 0.1 % (0.0-2.0); EOSINOPHILS % 0.4 % (0.0-7.0); HEMATOCRIT 26.3 % (42.0-52.0); HEMOGLOBIN 8.4 g/dl (14.0-18.0); LYMPHOCYTES # 0.4 10^3/ul (0.8-2.9); MEAN CORPUSCULAR HEMOGLOBIN 22.7 pg (29.0-33.0); MEAN CORPUSCULAR HGB CONC 32.1 g/dl (32.0-37.0); MEAN CORPUSCULAR VOLUME 70.7 fl (82.0-101.0); MEAN PLATELET VOLUME 7.5 fl (7.4-10.4); MONOCYTE # 0.8 10^3/ul (0.3-0.9); MONOCYTES % 13.4 % (0.0-11.0); NEUTROPHIL # 4.8 10^3/ul (1.6-7.5); NEUTROPHILS % 79.1 % (39.0-77.0); PLATELET COUNT 303 10^3/UL (140-440); RED BLOOD COUNT 3.73 10^6/ul (4.70-6.10); RED CELL DISTRIBUTION WIDTH 15.9 % (11.5-14.5); UNCORRECTED WBC 6.1 10^3/ul (4.8-10.8); WHITE BLOOD COUNT 6.1 10^3/ul (4.8-10.8)
[2016-04-08 07:54] LABS: CONDITION 1; LH ANALYZER COMMENTS 1
[2016-04-08 08:00] LABS: POTASSIUM 3.6 mmol/L (3.5-5.1)
[2016-04-08 08:03] LABS: CREATININE 0.5 mg/dl (0.61-1.24)
[2016-04-08 08:04] LABS: CALCIUM 7.2 mg/dl (8.4-10.2)
[2016-04-08 08:24] VITALS: BP 138/69; RESP 14
[2016-04-08] MEDS: HYDROCODONE/APAP (5/325) TAB PO PRN (09:18)
[2016-04-08] MEDS: FLUCONAZOLE 100 MG TAB PO SCH (09:19)
[2016-04-08] MEDS: FERROUS SULFATE (EC) 325 MG TAB PO SCH ×3 (09:19→20:24)
[2016-04-08] MEDS: HEPARIN 5,000 UNIT/0.5 ML SYG SC SCH ×2 (09:22→20:28)
--- NOTE | 2016-04-08 09:28 | CONS ---
Date/Time of Note Date/Time of Note DATE: 04/08/16 TIME: 09:27 Assessment/Plan Assessment/Plan Chief Complaint/Hosp Course ABD PAIN, vomiting, and constipation- SBO VS ILEUS conservative management for now SURG F-UP TIMING OF SURGERY - PER DR VILLARREAL Appears to be tolerating full liquids through his GI tract. It would be much safer to do the operation with improved nutritional state. D/w Dr. VILLARREAL and we all agree on surgery first, followed possibly by chemo. RECTAL ADENOCARCINOMA- POST chemo/xrt CEA-N NONCOMPLIANT WITH SURGICAL F-UP R/O RECURRENCE OF MALIGNANCY REASON FOR ILEUS VS SBO AGREE WITH restaging; include a liver CT and pelvic MRI SEVERE IRON DEFICIENCY WITH Microcytic, hypochromic anemia. MONITOR BLOOD COUNT CLOSELY h/h- dropping no bleeding on IV IRON PRBC PRN Distal esophagitis with gastritis. Continue proton pump inhibitors. HTN POOR COMPLIANCE Problems: Consultation Date/Type/Reason Admit Date/Time Apr 01, 2016 at 18:54 [facility] Referring Provider: LINDA WALDROP MD 24 HR Interval Summary Free Text/Dictation Denies any abdominal pain. Tolerating oral intake. No nausea, vomiting. Difficulty with having a bowel movement. Exam/Review of Systems Vital Signs Vitals Vital Signs Date Time Temp Pulse Resp B/P Pulse Ox O2 Delivery O2 Flow Rate FiO2 04/08/16 08:24 98.3 81 14 138/69 100 04/07/16 07:27 Room Air 04/04/16 21:05 2.0 Intake and Output 04/07/16 04/07/16 04/08/16 15:00 23:00 07:00 Intake Total 1810 ml 1695 ml Output Total 700 ml 600 ml Balance 1110 ml 1095 ml Exam GENERAL: This is a thin, frail-looking male patient lying in bed in no apparent distress. HEENT: Head normocephalic and atraumatic. Eyes: Anicteric sclerae. Conjunctivae clear. ENT: Nasal septum is midline. Oral mucosa is moist. NECK: Supple. No JVD noticed. RESPIRATORY: Bilaterally clear to auscultation. No adventitious breath sounds. No use of accessory muscles of respiration. CARDIAC: Regular rate and rhythm. No murmurs heard. ABDOMEN: Soft, nontender and nondistended. Bowel sounds hypoactive in all 4 quadrants. GENITOURINARY: Deferred. EXTREMITIES: No cyanosis, no clubbing, no edema. Peripheral pulses are palpable. NEUROLOGIC: The patient is awake, alert and oriented. Cranial nerves are grossly intact. Results Result Diagram: 04/08/16 0612 04/08/16 0612 Results 24 hrs Laboratory Tests Test 04/08/16 06:12 Anion Gap 11 Basophils # 0.0 Basophils % 0.1 Blood Morphology Comment Blood Urea Nitrogen 7 Calcium Level 7.2 L Carbon Dioxide Level 27 Chloride Level 98 Creatinine 0.50 L Eosinophils # 0.0 Eosinophils % 0.4 Glucose Level 74 Hematocrit 26.3 L Hemoglobin 8.4 L Lymphocytes # 0.4 L Lymphocytes % 7.0 L Mean Corpuscular Hemoglobin 22.7 L Mean Corpuscular Hemoglobin Concent 32.1 Mean Corpuscular Volume 70.7 L Mean Platelet Volume 7.5 Monocytes # 0.8 Monocytes % 13.4 H Neutrophils # 4.8 Neutrophils % 79.1 H Nucleated Red Blood Cells # 0.0 Nucleated Red Blood Cells % 0.0 Platelet Count 303 Potassium Level 3.6 Red Blood Count 3.73 L Red Cell Distribution Width 15.9 H Sodium Level 132 L White Blood Count 6.1 Medications Medications Current Medications Ondansetron HCl (Zofran Inj) 4 mg Q6H PRN IV NAUSEA AND/OR VOMITING Last administered on 04/03/16 09:20; Admin Dose 4 MG; Start 04/01/16 at 19:30 Acetaminophen (Tylenol Tab) 650 mg Q6H PRN PO PAIN LEVEL 1-3 OR FEVER Last administered on 04/03/16 19:12; Admin Dose 650 MG; Start 04/01/16 at 19:30 Acetaminophen/ Hydrocodone Bitart ([place] (5/325)) 1 tab Q6H PRN PO MODERATE PAIN LEVEL 4-6 Last administered on 04/08/16 09:18; Admin Dose 1 TAB; Start at 19:30 Morphine Sulfate (morphine) 2 mg Q4H PRN IV SEVERE PAIN LEVEL 7-10 Last administered on 04/03/16 09:20; Admin Dose 2 MG; Start 04/01/16 at 19:30 Docusate Sodium (Colace) 100 mg Q12H PRN PO CONSTIPATION; Start 04/01/16 at 19: 30 Magnesium Hydroxide (Milk Of Mag) 30 ml DAILY PRN PO CONSTIPATION Last administered on 04/04/16 23:30; Admin Dose 30 ML; Start 04/01/16 at 19:30 Sodium Biphosphate/ Sodium Phosphate (Fleet Enema) 133 ml DAILY PRN [place] CONSTIPATION Last administered on 04/03/16 09:00; Admin Dose 133 ML; Start 04/01 at 19:30 Heparin Sodium (Porcine) 5000 unit 5,000 unit Q12 SC Last administered on 09:22; Admin Dose 5,000 UNIT; Start 04/01/16 at 21:00 Sodium Chloride (1/2 NS) 1,000 ml @ 75 mls/hr [id number] IV Last administered on 04/08/16 05:13; Admin Dose 75 MLS/HR; Start 04/01/16 at 19:04 Lorazepam (Ativan) 0.5 mg Q6H PRN IV ANXIETY Last administered on 04/03/16 12: 14; Admin Dose 0.5 MG; Start 04/01/16 at 19:30 Hydralazine HCl (Apresoline) 10 mg Q6H PRN IV ELEVATED BLOOD PRESSURE; Start at 19:30 Nitroglycerin (Nitroglycerin (Sl Tab) 0.4 Mg) 1 tab Q5M PRN SL ANGINA; Start at 19:30 Morphine Sulfate (morphine) 4 mg Q4H PRN IV PAIN Last administered on 23:23; Admin Dose 4 MG; Start 04/02/16 at 22:00 Fluconazole (Diflucan) 100 mg DAILY PO Last administered on 04/08/16 09:19; Admin Dose 100 MG; Start 04/03/16 at 19:30 Ferrous Sulfate 325 mg 325 mg TID PO Last administered on 04/08/16 09:19; Admin Dose 325 MG; Start 04/04/16 at 13:00 Ferric Sodium Gluconate Complex/ Sodium Chloride (Ferrlecit/NS) 110 ml @ 110 mls/hr Q24H IVPB Last administered on 04/07/16 19:31; Admin Dose 110 MLS/HR; Start 04/04/16 at 20:00; Stop 04/08/16 at 20:59 Hydromorphone HCl (Dilaudid) 1 mg Q4H PRN IV PAIN Last administered on 06:55; Admin Dose 1 MG; Start 04/06/16 at 14:30 Oxycodone/ Acetaminophen (Percocet (5/ 325)) 2 tab Q4H PRN PO PAIN Last administered on 04/07/16 19:42; Admin Dose 2 TAB; Start 04/06/16 at 11:30 Pantoprazole (Protonix Tab) 40 mg BID@06,18 PO Last administered on 04/08/16 05 :13; Admin Dose 40 MG; Start 04/06/16 at 18:00 Metoclopramide HCl (Reglan) 10 mg Q6H PRN IV NAUSEA; Start 04/08/16 at 06:00 JASMINA PALOMARES MD Apr 08, 2016 09:28
--- NOTE | 2016-04-08 10:11 | PN ---
DATE: 04/08/2016 TIME OF EVALUATION: 9:45 a.m. SUBJECTIVE DATA: Denies any abdominal pain. Tolerating oral intake. No nausea , vomiting. Difficulty with having a bowel movement. OBJECTIVE DATA: VITAL SIGNS: Temperature 98.3, pulse rate 81, respiratory rate 14, blood pressure 138/60, oxygen saturation 100% on room air. GENERAL: This is a thin, frail-looking male patient lying in bed in no apparent distress. HEENT: Head normocephalic and atraumatic. Eyes: Anicteric sclerae. Conjunctivae clear. ENT: Nasal septum is midline. Oral mucosa is moist. NECK: Supple. No JVD noticed. RESPIRATORY: Bilaterally clear to auscultation. No adventitious breath sounds. No use of accessory muscles of respiration. CARDIAC: Regular rate and rhythm. No murmurs heard. ABDOMEN: Soft, nontender and nondistended. Bowel sounds hypoactive in all 4 quadrants. GENITOURINARY: Deferred. EXTREMITIES: No cyanosis, no clubbing, no edema. Peripheral pulses are palpable. NEUROLOGIC: The patient is awake, alert and oriented. Cranial nerves are grossly intact. LABORATORY AND DIAGNOSTIC DATA: WBC 6.1, hemoglobin 8.4, hematocrit 26.3, platelet count 30. Sodium 133, potassium 3.6, chloride 98, carbon dioxide 20, anion gap 11, BUN 7, creatinine 0.50, glucose 74, calcium 7.2. ASSESSMENT & PLAN: 1. Acute abdominal pain, most probably secondary to ileus. Continue full liquid diet. Advancement of diet as per surgery. 2. Severe ulcerative esophagitis. Continue proton pump inhibitors. Continue fluconazole for any possible carmina esophagitis. 3. Gastritis. Continue proton pump inhibitors. 4. Moderately differentiated adenocarcinoma of the rectum. Continue oncology and surgical recommendations. 5. Microcytic, hypochromic anemia with underlying iron deficiency. Continue iron supplements. 6. Essential hypertension. Blood pressure fairly well controlled. Continue p.r.n. antihypertensives. 7. Fluid, electrolytes and nutrition. Full liquid diet. 8. Deep venous thrombosis prophylaxis. Subcutaneous heparin. 9. Gastrointestinal prophylaxis. Proton pump inhibitors. 10. PLAN: Continue current care. Advancement of diet as per surgery. The case was discussed with Dr. Enriquez. YUSUF ENRIQUEZ MD, AM/KEVIN Conf#: [id number] DID#: [id number] MTDD
--- NOTE | 2016-04-08 18:09 | PN ---
Date/Time of Note Date/Time of Note DATE: 04/08/16 TIME: 18:03 Assessment/Plan Lines/Catheters [facility] IV Assessment/Plan Assessment/Plan [facility] Progress Note Date of Service: 04/08/16 Today's Impression & Plan: Overall stable with partial SBO vs ileus in the setting of rectosigmoid malignancy. Appears to be tolerating full liquids through his GI tract. It would be much safer to do the operation with improved nutritional state. D/w Dr. Zapien and we all agree on surgery first, followed possibly by chemo. With above assessment, I've recommended the following for today: 1. Continue current cares 2. Full liquid diet 3. Will postpone scheduled operation to and possibly later than that if patient is able to tolerate enough calories Thank you again for your great care of this very pleasant patient and wonderful family. If there are any questions, please feel free to call me at [phone]. TOTAL VISIT TIME: 20 minutes of which more than half was spent in [id number] discussion with the patient, possibly including family, as well as coordination of care between multiple physicians and providers. Disclaimer: Inadvertent spelling or grammatical errors are likely due to EHR/ dictation software use and do not reflect on the overall quality of patient care. Updated Clinical Summary: A very-pleasant 65-year-old gentleman with comorbidities including hypertension , who was initially admitted to [facility] through ED on 06/05/2015 with signs and symptoms consistent with anemia that eventually was shown to be a large, nearly obstructing mass approximately 12 cm from the anal verge up to the area of the rectosigmoid junction on colonoscopy 06/07/2015. Plan at that time was neoadjuvant treatment with chemoradiation followed by restaging and surgical resection. Patient underwent radiation therapy (Dr. Aranda) that ended September 2015 (patient's recollection was November 2015). Discussions with multiple colleagues revealed evidence that the patient had been not following instructions and there were barriers to get the patient to surgical intervention. At least part of the barriers were due to patient factors alone. Patient reported having contacted my office approximately 5 times to try and make an appointment and was told that we "do not except" his insurance. Careful review of office records showed no documentation of patient calling during this timeframe. Patient also believes that he had and [employer] as his insurance carrier, but his insurance carrier was [employer] (accepted by our program). Patient represented to [facility] through ED with constipation, vomiting , abdominal distension and dilated loops of small intestine on 04/01/16. Significant comorbidities included not insignificant malnutrition with BMI 15.8 and prehydration, albumin of 3.6 in the setting of inability to feed enterically. Small area of liver in segment 6 and two very small areas in segment 4a of questionable significance (too small to tell) benign path vs. metastatic disease. Comorbidity List: 1. Rectal malignancy, s/p chemotherapy and radiation June to Nov 2015 2. Hypertension 3. Cachexia 4. Colonoscopy June 2015 Subjective: No reported major events or complaints; no major reported abd pain and under control with medications; reports and feels ok; no n/v/d; no sob or cp; + flatus ; + BM (small); + activity Objective: Vitals: See below Exam: GENERAL: On exam, the patient was standing up in his room and appeared to be comfortable and in no acute distress. ABDOMEN: Soft, nontender and nondistended. There are no peritoneal signs or guarding. SKIN: Skin appears to be pink and feels warm to touch. NEUROLOGIC: Patient is awake, alert, and follows commands appropriately. Exam/Review of Systems Vital Signs Vitals Vital Signs Date Time Temp Pulse Resp B/P Pulse Ox O2 Delivery O2 Flow Rate FiO2 04/08/16 08:24 98.3 81 14 138/69 100 04/07/16 07:27 Room Air 04/04/16 21:05 2.0 Intake and Output 04/07/16 04/07/16 04/08/16 15:00 23:00 07:00 Intake Total 1810 ml 1695 ml Output Total 700 ml 600 ml Balance 1110 ml 1095 ml Results Result Diagram: 04/08/1661104/08/16611 DIVINE BEY M.D. Apr 08, 2016 18:09
[2016-04-08 20:00] VITALS: BP 143/70; RESP 18
[2016-04-08] MEDS: SOD FERRIC GLUC COMPLX 125 MG in SOD CHLORIDE 0.9% 100 ML IVPB SCH (20:24)
[2016-04-08] MEDS: OXYCODONE/ACETAMINOPHEN (5/325) TAB PO PRN (20:31)
[2016-04-09] MEDS: HYDROmorphONE 1 MG/ML SYG IV PRN ×6 (02:28→22:42)
[2016-04-09 05:54] LABS: EOSINOPHILS # 0.1 10^3/ul (0.0-0.5); EOSINOPHILS % 0.9 % (0.0-7.0); HEMATOCRIT 28.2 % (42.0-52.0); HEMOGLOBIN 9.3 g/dl (14.0-18.0); LYMPHOCYTES # 0.8 10^3/ul (0.8-2.9); LYMPHOCYTES % 11.3 % (15.0-51.0); MAGNESIUM 2.2 mg/dl (1.7-2.5); MEAN CORPUSCULAR HEMOGLOBIN 23.1 pg (29.0-33.0); MEAN CORPUSCULAR HGB CONC 32.8 g/dl (32.0-37.0); MEAN CORPUSCULAR VOLUME 70.3 fl (82.0-101.0); MEAN PLATELET VOLUME 7.6 fl (7.4-10.4); MONOCYTES % 14.1 % (0.0-11.0); NEUTROPHIL # 5.1 10^3/ul (1.6-7.5); NEUTROPHILS % 73.7 % (39.0-77.0); PHOSPHORUS 2.7 mg/dl (2.5-4.9); PLATELET COUNT 374 10^3/UL (140-440); RED BLOOD COUNT 4.01 10^6/ul (4.70-6.10); RED CELL DISTRIBUTION WIDTH 16.2 % (11.5-14.5); UNCORRECTED WBC 6.9 10^3/ul (4.8-10.8); WHITE BLOOD COUNT 6.9 10^3/ul (4.8-10.8)
[2016-04-09] MEDS: PANTOPRAZOLE (EC) 40 MG TAB PO SCH ×2 (06:32→18:34)
[2016-04-09 06:57] LABS: CONDITION 1; LH ANALYZER COMMENTS 1
[2016-04-09 07:27] LABS: POTASSIUM 3.7 mmol/L (3.5-5.1)
[2016-04-09 07:29] LABS: CREATININE 0.46 mg/dl (0.61-1.24)
[2016-04-09 07:30] LABS: CALCIUM 7.7 mg/dl (8.4-10.2)
[2016-04-09 07:36] VITALS: BP 159/81; RESP 16
--- NOTE | 2016-04-09 08:37 | PN ---
Date/Time of Note Date/Time of Note DATE: 04/09/16 TIME: 08:37 Assessment/Plan VTE Prophylaxis VTE Prophylaxis Intervention: heparin Lines/Catheters IV C[facility] Type (from [facility]): Peripheral IV Assessment/Plan Chief Complaint/Hosp Course 1. Acute abdominal pain, most probably secondary to ileus. Continue full liquid diet. Advancement of diet as per surgery. 2. Severe ulcerative esophagitis. Continue proton pump inhibitors. Continue fluconazole for any possible carmina esophagitis. 3. Gastritis. Continue proton pump inhibitors. 4. Moderately differentiated adenocarcinoma of the rectum. Continue oncology and surgical recommendations. 5. Microcytic, hypochromic anemia with underlying iron deficiency. Continue iron supplements. 6. Essential hypertension. Blood pressure fairly well controlled. Continue p.r.n. antihypertensives. 7. Fluid, electrolytes and nutrition. Full liquid diet. 8. Deep venous thrombosis prophylaxis. Subcutaneous heparin. 9. Gastrointestinal prophylaxis. Proton pump inhibitors. 10. PLAN: Continue current care. Await further recommendations from surgery. The case was discussed with Dr. Enriquez. Problems: Subjective 24 Hr Interval Summary Free Text/Dictation Complains of abdominal pain. Poor oral intake. Exam/Review of Systems Vital Signs Vitals Vital Signs Date Time Temp Pulse Resp B/P Pulse Ox O2 Delivery O2 Flow Rate FiO2 04/09/16 07:36 98.7 80 16 159/81 99 04/07/16 07:27 Room Air Intake and Output 04/08/16 04/08/16 04/09/16 15:00 23:00 07:00 Intake Total 110 ml 1955 ml Output Total 400 ml Balance 110 ml 1555 ml Exam GENERAL: This is a thin, frail-looking male patient lying in bed in no apparent distress. HEENT: Head normocephalic and atraumatic. Eyes: Anicteric sclerae. Conjunctivae clear. ENT: Nasal septum is midline. Oral mucosa is moist. NECK: Supple. No JVD noticed. RESPIRATORY: Bilaterally clear to auscultation. No adventitious breath sounds. No use of accessory muscles of respiration. CARDIAC: Regular rate and rhythm. No murmurs heard. ABDOMEN: Soft, nontender and nondistended. Bowel sounds hypoactive in all 4 quadrants. GENITOURINARY: Deferred. EXTREMITIES: No cyanosis, no clubbing, no edema. Peripheral pulses are palpable. NEUROLOGIC: The patient is awake, alert and oriented. Cranial nerves are grossly intact. Results Result Diagram: 04/09/16 0450 04/09/16 0450 Results 24 hrs Laboratory Tests Test 04/09/16 04:50 Anion Gap 12 Basophils # 0.0 Basophils % 0.0 Blood Morphology Comment Blood Urea Nitrogen 6 L Calcium Level 7.7 L Carbon Dioxide Level 28 Chloride Level 99 Creatinine 0.46 L Eosinophils # 0.1 Eosinophils % 0.9 Glucose Level 82 Hematocrit 28.2 L Hemoglobin 9.3 L Lymphocytes # 0.8 Lymphocytes % 11.3 L Magnesium Level 2.2 Mean Corpuscular Hemoglobin 23.1 L Mean Corpuscular Hemoglobin Concent 32.8 Mean Corpuscular Volume 70.3 L Mean Platelet Volume 7.6 Monocytes # 1.0 H Monocytes % 14.1 H Neutrophils # 5.1 Neutrophils % 73.7 Nucleated Red Blood Cells # 0.0 Nucleated Red Blood Cells % 0.0 Phosphorus Level 2.7 Platelet Count 374 # Potassium Level 3.7 Red Blood Count 4.01 L Red Cell Distribution Width 16.2 H Sodium Level 135 White Blood Count 6.9 Medications Medications Current Medications Ondansetron HCl (Zofran Inj) 4 mg Q6H PRN IV NAUSEA AND/OR VOMITING Last administered on 04/03/16 09:20; Admin Dose 4 MG; Start 04/01/16 at 19:30 Acetaminophen (Tylenol Tab) 650 mg Q6H PRN PO PAIN LEVEL 1-3 OR FEVER Last administered on 04/03/16 19:12; Admin Dose 650 MG; Start 04/01/16 at 19:30 Acetaminophen/ Hydrocodone Bitart ([place] (5/325)) 1 tab Q6H PRN PO MODERATE PAIN LEVEL 4-6 Last administered on 04/08/16 09:18; Admin Dose 1 TAB; Start at 19:30 Morphine Sulfate (morphine) 2 mg Q4H PRN IV SEVERE PAIN LEVEL 7-10 Last administered on 04/03/16 09:20; Admin Dose 2 MG; Start 04/01/16 at 19:30 Docusate Sodium (Colace) 100 mg Q12H PRN PO CONSTIPATION; Start 04/01/16 at 19: 30 Magnesium Hydroxide (Milk Of Mag) 30 ml DAILY PRN PO CONSTIPATION Last administered on 04/04/16 23:30; Admin Dose 30 ML; Start 04/01/16 at 19:30 Sodium Biphosphate/ Sodium Phosphate (Fleet Enema) 133 ml DAILY PRN [place] CONSTIPATION Last administered on 04/03/16 09:00; Admin Dose 133 ML; Start 04/01 at 19:30 Heparin Sodium (Porcine) 5000 unit 5,000 unit Q12 SC Last administered on 20:28; Admin Dose 5,000 UNIT; Start 04/01/16 at 21:00 Sodium Chloride (1/2 NS) 1,000 ml @ 75 mls/hr [id number] IV Last administered on 04/08/16 18:47; Admin Dose 75 MLS/HR; Start 04/01/16 at 19:04 Lorazepam (Ativan) 0.5 mg Q6H PRN IV ANXIETY Last administered on 04/03/16 12: 14; Admin Dose 0.5 MG; Start 04/01/16 at 19:30 Hydralazine HCl (Apresoline) 10 mg Q6H PRN IV ELEVATED BLOOD PRESSURE; Start at 19:30 Nitroglycerin (Nitroglycerin (Sl Tab) 0.4 Mg) 1 tab Q5M PRN SL ANGINA; Start at 19:30 Morphine Sulfate (morphine) 4 mg Q4H PRN IV PAIN Last administered on 23:23; Admin Dose 4 MG; Start 04/02/16 at 22:00 Fluconazole (Diflucan) 100 mg DAILY PO Last administered on 04/08/16 09:19; Admin Dose 100 MG; Start 04/03/16 at 19:30 Ferrous Sulfate (Ferrous Sulfate (Ec)) 325 mg TID PO Last administered on 20:24; Admin Dose 325 MG; Start 04/04/16 at 13:00 Hydromorphone HCl (Dilaudid) 1 mg Q4H PRN IV PAIN Last administered on 06:32; Admin Dose 1 MG; Start 04/06/16 at 14:30 Oxycodone/ Acetaminophen (Percocet (5/ 325)) 2 tab Q4H PRN PO PAIN Last administered on 04/08/16 20:31; Admin Dose 2 TAB; Start 04/06/16 at 11:30 Pantoprazole (Protonix Tab) 40 mg BID@06,18 PO Last administered on 04/09/16t 06 :32; Admin Dose 40 MG; Start 04/06/16 at 18:00 Metoclopramide HCl (Reglan) 10 mg Q6H PRN IV NAUSEA; Start 04/08/16 at 06:00 YUSUF POLLOCK NP Apr 09, 2016 08:37
[2016-04-09] MEDS: FLUCONAZOLE 100 MG TAB PO SCH (08:47)
[2016-04-09] MEDS: FERROUS SULFATE (EC) 325 MG TAB PO SCH ×3 (08:47→20:23)
[2016-04-09] MEDS: HEPARIN 5,000 UNIT/0.5 ML SYG SC SCH ×2 (08:52→20:26)
[2016-04-09] MEDS: SOD CHLORIDE 0.45% 1,000 ML IV SCH ×3 (10:10→23:13)
--- NOTE | 2016-04-09 10:17 | CONS ---
Date/Time of Note Date/Time of Note DATE: 04/09/16 TIME: 10:17 Assessment/Plan Assessment/Plan Chief Complaint/Hosp Course ABD PAIN, vomiting, and constipation- SBO VS ILEUS conservative management for now SURG F-UP TIMING OF SURGERY - PER DR VILLARREAL RECTAL ADENOCARCINOMA- POST chemo/xrt CEA-N NONCOMPLIANT WITH SURGICAL F-UP R/O RECURRENCE OF MALIGNANCY REASON FOR ILEUS VS SBO AGREE WITH restaging; include a liver CT and pelvic MRI SEVERE IRON DEFICIENCY WITH Microcytic, hypochromic anemia. MONITOR BLOOD COUNT CLOSELY h/h- dropping no bleeding on IV IRON PRBC PRN Distal esophagitis with gastritis. Continue proton pump inhibitors. HTN POOR COMPLIANCE Problems: Consultation Date/Type/Reason Admit Date/Time Apr 01, 2016 at 18:54 [facility] Referring Provider: LINDA WALDROP MD 24 HR Interval Summary Free Text/Dictation Blood pressure was running on the higher side. Was complaining of nausea earlier. Exam/Review of Systems Vital Signs Vitals Vital Signs Date Time Temp Pulse Resp B/P Pulse Ox O2 Delivery O2 Flow Rate FiO2 04/09/16 07:36 98.7 80 16 159/81 99 04/07/16 07:27 Room Air Intake and Output 04/08/16 04/08/16 04/09/16 15:00 23:00 07:00 Intake Total 110 ml 1955 ml Output Total 400 ml Balance 110 ml 1555 ml Exam GENERAL: This is a thin, frail-looking male patient lying in bed in no apparent distress. HEENT: Head normocephalic and atraumatic. Eyes: Anicteric sclerae. Conjunctivae clear. ENT: Nasal septum is midline. Oral mucosa is moist. NECK: Supple. No JVD noticed. RESPIRATORY: Bilaterally clear to auscultation. No adventitious breath sounds. No use of accessory muscles of respiration. CARDIAC: Regular rate and rhythm. No murmurs heard. ABDOMEN: Soft, nontender and nondistended. Bowel sounds hypoactive in all 4 quadrants. GENITOURINARY: Deferred. EXTREMITIES: No cyanosis, no clubbing, no edema. Peripheral pulses are palpable. NEUROLOGIC: The patient is awake, alert and oriented. Cranial nerves are grossly intact. Results Result Diagram: 04/09/16 0450 04/09/16 045 Results 24 hrs Laboratory Tests Test 04/09/16 04:50 Anion Gap 12 Basophils # 0.0 Basophils % 0.0 Blood Morphology Comment Blood Urea Nitrogen 6 L Calcium Level 7.7 L Carbon Dioxide Level 28 Chloride Level 99 Creatinine 0.46 L Eosinophils # 0.1 Eosinophils % 0.9 Glucose Level 82 Hematocrit 28.2 L Hemoglobin 9.3 L Lymphocytes # 0.8 Lymphocytes % 11.3 L Magnesium Level 2.2 Mean Corpuscular Hemoglobin 23.1 L Mean Corpuscular Hemoglobin Concent 32.8 Mean Corpuscular Volume 70.3 L Mean Platelet Volume 7.6 Monocytes # 1.0 H Monocytes % 14.1 H Neutrophils # 5.1 Neutrophils % 73.7 Nucleated Red Blood Cells # 0.0 Nucleated Red Blood Cells % 0.0 Phosphorus Level 2.7 Platelet Count 374 # Potassium Level 3.7 Red Blood Count 4.01 L Red Cell Distribution Width 16.2 H Sodium Level 135 White Blood Count 6.9 Medications Medications Current Medications Ondansetron HCl (Zofran Inj) 4 mg Q6H PRN IV NAUSEA AND/OR VOMITING Last administered on 04/03/16 09:20; Admin Dose 4 MG; Start 04/01/16 at 19:30 Acetaminophen (Tylenol Tab) 650 mg Q6H PRN PO PAIN LEVEL 1-3 OR FEVER Last administered on 04/03/16 19:12; Admin Dose 650 MG; Start 04/01/16 at 19:30 Acetaminophen/ Hydrocodone Bitart ([place] (5/325)) 1 tab Q6H PRN PO MODERATE PAIN LEVEL 4-6 Last administered on 04/08/16 09:18; Admin Dose 1 TAB; Start at 19:30 Morphine Sulfate (morphine) 2 mg Q4H PRN IV SEVERE PAIN LEVEL 7-10 Last administered on 04/03/16 09:20; Admin Dose 2 MG; Start 04/01/16 at 19:30 Docusate Sodium (Colace) 100 mg Q12H PRN PO CONSTIPATION; Start 04/01/16 at 19: 30 Magnesium Hydroxide (Milk Of Mag) 30 ml DAILY PRN PO CONSTIPATION Last administered on 04/04/16 23:30; Admin Dose 30 ML; Start 04/01/16 at 19:30 Sodium Biphosphate/ Sodium Phosphate (Fleet Enema) 133 ml DAILY PRN [place] CONSTIPATION Last administered on 04/03/16 09:00; Admin Dose 133 ML; Start 04/01 at 19:30 Heparin Sodium (Porcine) 5000 unit 5,000 unit Q12 SC Last administered on 08:52; Admin Dose 5,000 UNIT; Start 04/01/16 at 21:00 Sodium Chloride (1/2 NS) 1,000 ml @ 75 mls/hr [id number] IV Last administered on 04/09/16 10:10; Admin Dose 75 MLS/HR; Start 04/01/16 at 19:04 Lorazepam (Ativan) 0.5 mg Q6H PRN IV ANXIETY Last administered on 04/03/16 12: 14; Admin Dose 0.5 MG; Start 04/01/16 at 19:30 Hydralazine HCl (Apresoline) 10 mg Q6H PRN IV ELEVATED BLOOD PRESSURE; Start at 19:30 Nitroglycerin (Nitroglycerin (Sl Tab) 0.4 Mg) 1 tab Q5M PRN SL ANGINA; Start at 19:30 Morphine Sulfate (morphine) 4 mg Q4H PRN IV PAIN Last administered on 23:23; Admin Dose 4 MG; Start 04/02/16 at 22:00 Fluconazole (Diflucan) 100 mg DAILY PO Last administered on 04/09/16 08:47; Admin Dose 100 MG; Start 04/03/16 at 19:30 Ferrous Sulfate (Ferrous Sulfate (Ec)) 325 mg TID PO Last administered on 08:47; Admin Dose 325 MG; Start 04/04/16 at 13:00 Hydromorphone HCl (Dilaudid) 1 mg Q4H PRN IV PAIN Last administered on 06:32; Admin Dose 1 MG; Start 04/06/16 at 14:30 Oxycodone/ Acetaminophen (Percocet (5/ 325)) 2 tab Q4H PRN PO PAIN Last administered on 04/08/16 20:31; Admin Dose 2 TAB; Start 04/06/16 at 11:30 Pantoprazole (Protonix Tab) 40 mg BID@,18 PO Last administered on 04/09/16 06 :32; Admin Dose 40 MG; Start 04/06/16 at 18:00 Metoclopramide HCl (Reglan) 10 mg Q6H PRN IV NAUSEA; Start 04/08/16 at 06:00 JASMINA PALOMARES MD Apr 09, 2016 10:17
[2016-04-09] MEDS: HYDROCODONE/APAP (5/325) TAB PO PRN (11:27)
[2016-04-09] MEDS: OXYCODONE/ACETAMINOPHEN (5/325) TAB PO PRN ×2 (15:29→20:32)
[2016-04-09 19:42] VITALS: BP 134/69; RESP 18
--- NOTE | 2016-04-09 20:00 | PN ---
Date/Time of Note Date/Time of Note DATE: 04/09/16 TIME: 19:58 Assessment/Plan Lines/Catheters IV Catheter Type (from [facility]): Peripheral IV Assessment/Plan Assessment/Plan [facility] Progress Note Date of Service: 04/09/16 Today's Impression & Plan: Overall stable with partial SBO vs ileus in the setting of rectosigmoid malignancy. Appears to be tolerating full liquids through his GI tract. The intake remains small. It would be much safer to do the operation with improved nutritional state. With above assessment, I've recommended the following for today: 1. Continue current cares 2. Cont full liquid diet 3. Will postpone scheduled operation to end of the week and possibly later than that if patient is able to tolerate enough calories Thank you again for your great care of this very pleasant patient and wonderful family. If there are any questions, please feel free to call me at [phone]. TOTAL VISIT TIME: 20 minutes of which more than half was spent in [id number] discussion with the patient, possibly including family, as well as coordination of care between multiple physicians and providers. Disclaimer: Inadvertent spelling or grammatical errors are likely due to EHR/ dictation software use and do not reflect on the overall quality of patient care. Updated Clinical Summary: A very-pleasant 65-year-old gentleman with comorbidities including hypertension , who was initially admitted to [facility] through ED on 06/05/2015 with signs and symptoms consistent with anemia that eventually was shown to be a large, nearly obstructing mass approximately 12 cm from the anal verge up to the area of the rectosigmoid junction on colonoscopy 06/07/2015. Plan at that time was neoadjuvant treatment with chemoradiation followed by restaging and surgical resection. Patient underwent radiation therapy (Dr. Aranda) that ended September 2015 (patient's recollection was November 2015). Discussions with multiple colleagues revealed evidence that the patient had been not following instructions and there were barriers to get the patient to surgical intervention. At least part of the barriers were due to patient factors alone. Patient reported having contacted my office approximately 5 times to try and make an appointment and was told that we "do not except" his insurance. Careful review of office records showed no documentation of patient calling during this timeframe. Patient also believes that he had and [employer] as his insurance carrier, but his insurance carrier was [employer] (accepted by our program). Patient represented to [facility] through ED with constipation, vomiting , abdominal distension and dilated loops of small intestine on 04/01/16. Significant comorbidities included not insignificant malnutrition with BMI 15.8 and prehydration, albumin of 3.6 in the setting of inability to feed enterically. Small area of liver in segment 6 and two very small areas in segment 4a of questionable significance (too small to tell) benign path vs. metastatic disease. Comorbidity List: 1. Rectal malignancy, s/p chemotherapy and radiation June to Nov 2015 2. Hypertension 3. Cachexia 4. Colonoscopy June 2015 Subjective: No reported major events or complaints; no major reported abd pain and under control with medications; reports and feels ok; slight increase in nausea with increased intake; very slight vomiting earlier; no sob or cp; + flatus; + BM ( small); + activity Objective: Vitals: See below Exam: GENERAL: On exam, the patient was laying in bed and appeared to be comfortable and in no acute distress. ABDOMEN: Soft, nontender and nondistended. There are no peritoneal signs or guarding. SKIN: Skin appears to be pink and feels warm to touch. NEUROLOGIC: Patient is awake, alert, and follows commands appropriately. Exam/Review of Systems Vital Signs Vitals Vital Signs Date Time Temp Pulse Resp B/P Pulse Ox O2 Delivery O2 Flow Rate FiO2 04/09/16 19:42 98.0 89 18 134/69 99 04/07/16 07:27 Room Air Intake and Output 04/08/16 04/08/16 04/09/16 14:59 22:59 06:59 Intake Total 110 ml 1955 ml Output Total 400 ml Balance 110 ml 1555 ml Results Result Diagram: 04/09/16 0450 04/09/16 0450 DIVINE BEY M.D. Apr 09, 2016 20:00
--- NOTE | 2016-04-09 20:21 | RADRPT ---
PROCEDURE: US Upper extremity Venous. CLINICAL INDICATION: Right forearm redness TECHNIQUE: Multiple sonographic images of the right upper extremity deep venous system was obtaine d utilizing grayscale, color-flow, compressive sonography and doppler imaging with augmentation. COMPARISON: None. FINDINGS: There is normal compressibility / flow within the right internal jugular, subclavian, axillary, brac hial, radial and ulnar veins. The cephalic vein in the proximal forearm does not demonstrate sandy sibility, thrombophlebitis is possible. The basilic vein in the forearm is not visualized IMPRESSION: 1. No sonographic evidence for deep venous thrombosis of the right upper extremity. 2. Lack of compressibility of the cephalic vein in the right forearm cannot exclude superficial thro mbophlebitis RPTAT:HJJR Physician Rosales Date Time Electronically viewed and signed by Physician Rosales on 04/09/2016 20:21 /
[2016-04-10] MEDS: OXYCODONE/ACETAMINOPHEN (5/325) TAB PO PRN ×2 (01:47→10:33)
[2016-04-10] MEDS: HYDROmorphONE 1 MG/ML SYG IV PRN ×5 (04:39→21:32)
[2016-04-10] MEDS: PANTOPRAZOLE (EC) 40 MG TAB PO SCH ×2 (05:04→17:34)
[2016-04-10 05:33] LABS: POTASSIUM 3.3 mmol/L (3.5-5.1)
[2016-04-10 05:35] LABS: CREATININE 0.46 mg/dl (0.61-1.24); PHOSPHORUS 2.6 mg/dl (2.5-4.9)
[2016-04-10 05:36] LABS: CALCIUM 7.4 mg/dl (8.4-10.2)
[2016-04-10 05:45] LABS: BASOPHILS % 0.2 % (0.0-2.0); EOSINOPHILS % 0.4 % (0.0-7.0); HEMATOCRIT 27.4 % (42.0-52.0); HEMOGLOBIN 8.9 g/dl (14.0-18.0); LYMPHOCYTES # 0.6 10^3/ul (0.8-2.9); LYMPHOCYTES % 9.7 % (15.0-51.0); MEAN CORPUSCULAR HGB CONC 32.5 g/dl (32.0-37.0); MEAN CORPUSCULAR VOLUME 70.6 fl (82.0-101.0); MEAN PLATELET VOLUME 7.6 fl (7.4-10.4); MONOCYTE # 0.9 10^3/ul (0.3-0.9); MONOCYTES % 16.4 % (0.0-11.0); NEUTROPHIL # 4.2 10^3/ul (1.6-7.5); NEUTROPHILS % 73.3 % (39.0-77.0); PLATELET COUNT 347 10^3/UL (140-440); RED BLOOD COUNT 3.89 10^6/ul (4.70-6.10); RED CELL DISTRIBUTION WIDTH 16.3 % (11.5-14.5); UNCORRECTED WBC 5.7 10^3/ul (4.8-10.8); WHITE BLOOD COUNT 5.7 10^3/ul (4.8-10.8)
[2016-04-10 05:48] LABS: CONDITION 1; LH ANALYZER COMMENTS 1
[2016-04-10 07:48] VITALS: BP 172/77; RESP 20
[2016-04-10 08:22] VITALS: BP 167/79; PULSE 83
--- NOTE | 2016-04-10 08:23 | PN ---
Date/Time of Note Date/Time of Note DATE: 04/10/16 TIME: 08:20 Assessment/Plan VTE Prophylaxis VTE Prophylaxis Intervention: heparin Lines/Catheters IV Catheter Type (from [facility]): Peripheral IV Assessment/Plan Chief Complaint/Hosp Course 1. Acute abdominal pain, most probably secondary to ileus. Continue full liquid diet. Advancement of diet as per surgery. 2. Severe ulcerative esophagitis. Continue proton pump inhibitors. Continue fluconazole for any possible carmina esophagitis. 3. Gastritis. Continue proton pump inhibitors. 4. Moderately differentiated adenocarcinoma of the rectum. Continue oncology and surgical recommendations. 5. Microcytic, hypochromic anemia with underlying iron deficiency. Continue iron supplements. 6. Essential hypertension. Blood pressure fairly well controlled. Continue p.r.n. antihypertensives. 7. Fluid, electrolytes and nutrition. Full liquid diet. 8. Deep venous thrombosis prophylaxis. Subcutaneous heparin. 9. Gastrointestinal prophylaxis. Proton pump inhibitors. 10. PLAN: Continue current care. Await further recommendations from surgery. The case was discussed with Dr. Enriquez. Problems: Subjective 24 Hr Interval Summary Free Text/Dictation Blood pressure was running on the higher side. Was complaining of nausea earlier. Exam/Review of Systems Vital Signs Vitals Vital Signs Date Time Temp Pulse Resp B/P Pulse Ox O2 Delivery O2 Flow Rate FiO2 04/10/16 07:48 98.3 80 20 172/77 99 04/07/16 07:27 Room Air Intake and Output 04/09/16 04/09/16 04/10/16 15:00 23:00 07:00 Intake Total 2245 ml 1600 ml Output Total 550 ml Balance 1695 ml 1600 ml Exam GENERAL: This is a thin, frail-looking male patient lying in bed in no apparent distress. HEENT: Head normocephalic and atraumatic. Eyes: Anicteric sclerae. Conjunctivae clear. ENT: Nasal septum is midline. Oral mucosa is moist. NECK: Supple. No JVD noticed. RESPIRATORY: Bilaterally clear to auscultation. No adventitious breath sounds. No use of accessory muscles of respiration. CARDIAC: Regular rate and rhythm. No murmurs heard. ABDOMEN: Soft, nontender and nondistended. Bowel sounds hypoactive in all 4 quadrants. GENITOURINARY: Deferred. EXTREMITIES: No cyanosis, no clubbing, no edema. Peripheral pulses are palpable. NEUROLOGIC: The patient is awake, alert and oriented. Cranial nerves are grossly intact. Results Result Diagram: 04/10/16 0430 04/10/16 0430 Results 24 hrs Laboratory Tests Test 04/10/16 04:30 Anion Gap 13 Basophils # 0.0 Basophils % 0.2 Blood Morphology Comment Blood Urea Nitrogen 8 Calcium Level 7.4 L Carbon Dioxide Level 25 Chloride Level 99 Creatinine 0.46 L Eosinophils # 0.0 Eosinophils % 0.4 Glucose Level 88 Hematocrit 27.4 L Hemoglobin 8.9 L Lymphocytes # 0.6 L Lymphocytes % 9.7 L Magnesium Level 2.0 Mean Corpuscular Hemoglobin 23.0 L Mean Corpuscular Hemoglobin Concent 32.5 Mean Corpuscular Volume 70.6 L Mean Platelet Volume 7.6 Monocytes # 0.9 Monocytes % 16.4 H Neutrophils # 4.2 Neutrophils % 73.3 Nucleated Red Blood Cells # 0.0 Nucleated Red Blood Cells % 0.0 Phosphorus Level 2.6 Platelet Count 347 Potassium Level 3.3 L Red Blood Count 3.89 L Red Cell Distribution Width 16.3 H Sodium Level 134 L White Blood Count 5.7 Medications Medications Current Medications Ondansetron HCl (Zofran Inj) 4 mg Q6H PRN IV NAUSEA AND/OR VOMITING Last administered on 04/03/16 09:20; Admin Dose 4 MG; Start 04/01/16 at 19:30 Acetaminophen (Tylenol Tab) 650 mg Q6H PRN PO PAIN LEVEL 1-3 OR FEVER Last administered on 04/03/16 19:12; Admin Dose 650 MG; Start 04/01/16 at 19:30 Acetaminophen/ Hydrocodone Bitart ([place] (5/325)) 1 tab Q6H PRN PO MODERATE PAIN LEVEL 4-6 Last administered on 04/09/16 11:27; Admin Dose 1 TAB; Start at 19:30 Morphine Sulfate (morphine) 2 mg Q4H PRN IV SEVERE PAIN LEVEL 7-10 Last administered on 04/03/16 09:20; Admin Dose 2 MG; Start 04/01/16 at 19:30 Docusate Sodium (Colace) 100 mg Q12H PRN PO CONSTIPATION; Start 04/01/16 at 19: 30 Magnesium Hydroxide (Milk Of Mag) 30 ml DAILY PRN PO CONSTIPATION Last administered on 04/04/16 23:30; Admin Dose 30 ML; Start 04/01/16 at 19:30 Sodium Biphosphate/ Sodium Phosphate (Fleet Enema) 133 ml DAILY PRN [place] CONSTIPATION Last administered on 04/03/16 09:00; Admin Dose 133 ML; Start 04/01 at 19:30 Heparin Sodium (Porcine) 5000 unit 5,000 unit Q12 SC Last administered on 20:26; Admin Dose 5,000 UNIT; Start 04/01/16 at 21:00 Sodium Chloride (1/2 NS) 1,000 ml @ 75 mls/hr [id number] IV Last administered on 04/09/16 23:13; Admin Dose 75 MLS/HR; Start 04/01/16 at 19:04 Lorazepam (Ativan) 0.5 mg Q6H PRN IV ANXIETY Last administered on 04/03/16 12: 14; Admin Dose 0.5 MG; Start 04/01/16 at 19:30 Hydralazine HCl (Apresoline) 10 mg Q6H PRN IV ELEVATED BLOOD PRESSURE; Start at 19:30 Nitroglycerin (Nitroglycerin (Sl Tab) 0.4 Mg) 1 tab Q5M PRN SL ANGINA; Start at 19:30 Morphine Sulfate (morphine) 4 mg Q4H PRN IV PAIN Last administered on 23:23; Admin Dose 4 MG; Start 04/02/16 at 22:00 Fluconazole (Diflucan) 100 mg DAILY PO Last administered on 04/09/16 08:47; Admin Dose 100 MG; Start 04/03/16 at 19:30 Ferrous Sulfate (Ferrous Sulfate (Ec)) 325 mg TID PO Last administered on 20:23; Admin Dose 325 MG; Start 04/04/16 at 13:00 Hydromorphone HCl (Dilaudid) 1 mg Q4H PRN IV PAIN Last administered on 04:39; Admin Dose 1 MG; Start 04/06/16 at 14:30 Oxycodone/ Acetaminophen (Percocet (5/ 325)) 2 tab Q4H PRN PO PAIN Last administered on 04/10/16 01:47; Admin Dose 2 TAB; Start 04/06/16 at 11:30 Pantoprazole (Protonix Tab) 40 mg BID@06,18 PO Last administered on 04/10/16 05 :04; Admin Dose 40 MG; Start 04/06/16 at 18:00 Metoclopramide HCl (Reglan) 10 mg Q6H PRN IV NAUSEA; Start 04/08/16 at 06:00 YUSUF POLLOCK NP Apr 10, 2016 08:23
--- NOTE | 2016-04-10 09:02 | CONS ---
Date/Time of Note Date/Time of Note DATE: 04/10/16 TIME: 09:02 Assessment/Plan Assessment/Plan Chief Complaint/Hosp Course ABD PAIN, vomiting, and constipation- SBO VS ILEUS conservative management for now SURG F-UP TIMING OF SURGERY - D/W DR VILLARREAL- NEXT WE RECTAL ADENOCARCINOMA- POST chemo/xrt CEA-N NONCOMPLIANT WITH SURGICAL F-UP R/O RECURRENCE OF MALIGNANCY REASON FOR ILEUS VS SBO SEVERE IRON DEFICIENCY WITH Microcytic, hypochromic anemia. MONITOR BLOOD COUNT CLOSELY h/h- dropping no bleeding on IV IRON PRBC PRN Distal esophagitis with gastritis. Continue proton pump inhibitors. HTN POOR COMPLIANCE Problems: Consultation Date/Type/Reason Admit Date/Time Apr 01, 2016 at 18:54 [facility] Referring Provider: LINDA WALDROP MD 24 HR Interval Summary Free Text/Dictation ALL NOTED D/W DR VILLARREAL Exam/Review of Systems Vital Signs Vitals Vital Signs Date Time Temp Pulse Resp B/P Pulse Ox O2 Delivery O2 Flow Rate FiO2 04/10/16 08:22 83 167/79 04/10/16 07:48 98.3 20 99 04/07/16 07:27 Room Air Intake and Output 04/09/16 04/09/16 04/10/16 15:00 23:00 07:00 Intake Total 2245 ml 1600 ml Output Total 550 ml Balance 1695 ml 1600 ml Exam GENERAL: This is a thin, frail-looking male patient lying in bed in no apparent distress. HEENT: Head normocephalic and atraumatic. Eyes: Anicteric sclerae. Conjunctivae clear. ENT: Nasal septum is midline. Oral mucosa is moist. NECK: Supple. No JVD noticed. RESPIRATORY: Bilaterally clear to auscultation. No adventitious breath sounds. No use of accessory muscles of respiration. CARDIAC: Regular rate and rhythm. No murmurs heard. ABDOMEN: Soft, nontender and nondistended. Bowel sounds hypoactive in all 4 quadrants. GENITOURINARY: Deferred. EXTREMITIES: No cyanosis, no clubbing, no edema. Peripheral pulses are palpable. NEUROLOGIC: The patient is awake, alert and oriented. Cranial nerves are grossly intact. Results Result Diagram: 04/10/16 0430 04/10/16 0430 Results 24 hrs Laboratory Tests Test 04/10/16 04:30 Anion Gap 13 Basophils # 0.0 Basophils % 0.2 Blood Morphology Comment Blood Urea Nitrogen 8 Calcium Level 7.4 L Carbon Dioxide Level 25 Chloride Level 99 Creatinine 0.46 L Eosinophils # 0.0 Eosinophils % 0.4 Glucose Level 88 Hematocrit 27.4 L Hemoglobin 8.9 L Lymphocytes # 0.6 L Lymphocytes % 9.7 L Magnesium Level 2.0 Mean Corpuscular Hemoglobin 23.0 L Mean Corpuscular Hemoglobin Concent 32.5 Mean Corpuscular Volume 70.6 L Mean Platelet Volume 7.6 Monocytes # 0.9 Monocytes % 16.4 H Neutrophils # 4.2 Neutrophils % 73.3 Nucleated Red Blood Cells # 0.0 Nucleated Red Blood Cells % 0.0 Phosphorus Level 2.6 Platelet Count 347 Potassium Level 3.3 L Red Blood Count 3.89 L Red Cell Distribution Width 16.3 H Sodium Level 134 L White Blood Count 5.7 Medications Medications Current Medications Ondansetron HCl (Zofran Inj) 4 mg Q6H PRN IV NAUSEA AND/OR VOMITING Last administered on 04/03/16 09:20; Admin Dose 4 MG; Start 04/01/16 at 19:30 Acetaminophen (Tylenol Tab) 650 mg Q6H PRN PO PAIN LEVEL 1-3 OR FEVER Last administered on 04/03/16 19:12; Admin Dose 650 MG; Start 04/01/16 at 19:30 Acetaminophen/ Hydrocodone Bitart ([place] (5/325)) 1 tab Q6H PRN PO MODERATE PAIN LEVEL 4-6 Last administered on 04/09/16 11:27; Admin Dose 1 TAB; Start at 19:30 Morphine Sulfate (morphine) 2 mg Q4H PRN IV SEVERE PAIN LEVEL 7-10 Last administered on 04/03/16 09:20; Admin Dose 2 MG; Start 04/01/16 at 19:30 Docusate Sodium (Colace) 100 mg Q12H PRN PO CONSTIPATION; Start 04/01/16 at 19: 30 Magnesium Hydroxide (Milk Of Mag) 30 ml DAILY PRN PO CONSTIPATION Last administered on 04/04/16 23:30; Admin Dose 30 ML; Start 04/01/16 at 19:30 Sodium Biphosphate/ Sodium Phosphate (Fleet Enema) 133 ml DAILY PRN [place] CONSTIPATION Last administered on 04/03/16 09:00; Admin Dose 133 ML; Start 04/01 at 19:30 Heparin Sodium (Porcine) 5000 unit 5,000 unit Q12 SC Last administered on 20:26; Admin Dose 5,000 UNIT; Start 04/01/16 at 21:00 Sodium Chloride (1/2 NS) 1,000 ml @ 75 mls/hr [id number] IV Last administered on 04/09/16 23:13; Admin Dose 75 MLS/HR; Start 04/01/16 at 19:04 Lorazepam (Ativan) 0.5 mg Q6H PRN IV ANXIETY Last administered on 04/03/16 12: 14; Admin Dose 0.5 MG; Start 04/01/16 at 19:30 Hydralazine HCl (Apresoline) 10 mg Q6H PRN IV ELEVATED BLOOD PRESSURE; Start at 19:30 Nitroglycerin (Nitroglycerin (Sl Tab) 0.4 Mg) 1 tab Q5M PRN SL ANGINA; Start at 19:30 Morphine Sulfate (morphine) 4 mg Q4H PRN IV PAIN Last administered on 23:23; Admin Dose 4 MG; Start 04/02/16 at 22:00 Fluconazole (Diflucan) 100 mg DAILY PO Last administered on 04/09/16 08:47; Admin Dose 100 MG; Start 04/03/16 at 19:30 Ferrous Sulfate (Ferrous Sulfate (Ec)) 325 mg TID PO Last administered on 20:23; Admin Dose 325 MG; Start 04/04/16 at 13:00 Hydromorphone HCl (Dilaudid) 1 mg Q4H PRN IV PAIN Last administered on 04:39; Admin Dose 1 MG; Start 04/06/16 at 14:30 Oxycodone/ Acetaminophen (Percocet (5/ 325)) 2 tab Q4H PRN PO PAIN Last administered on 04/10/16 01:47; Admin Dose 2 TAB; Start 04/06/16 at 11:30 Pantoprazole (Protonix Tab) 40 mg BID@,18 PO Last administered on 04/10/16 05 :04; Admin Dose 40 MG; Start 04/06/16 at 18:00 Metoclopramide HCl (Reglan) 10 mg Q6H PRN IV NAUSEA; Start 04/08/16 at 06:00 JASMINA PALOMARES MD Apr 10, 2016 09:02
[2016-04-10] MEDS: ONDANSETRON 4 MG INJ IV PRN ×3 (09:15→17:27)
[2016-04-10] MEDS: FERROUS SULFATE (EC) 325 MG TAB PO SCH ×3 (09:16→20:09)
[2016-04-10] MEDS: FLUCONAZOLE 100 MG TAB PO SCH (09:16)
[2016-04-10] MEDS: HEPARIN 5,000 UNIT/0.5 ML SYG SC SCH ×2 (09:25→20:11)
--- NOTE | 2016-04-10 12:19 | PN ---
Date/Time of Note Date/Time of Note DATE: 04/10/16 TIME: 12:17 Assessment/Plan Lines/Catheters IV Catheter Type (from [facility]): Peripheral IV Assessment/Plan Assessment/Plan [facility] Progress Note Date of Service: 04/10/16 Today's Impression & Plan: Overall stable with partial SBO vs ileus in the setting of rectosigmoid malignancy. Oral intake not adequate through his GI tract. Do not believe further time will improve clinical picture. Obtained patient's consent for laparoscopic, possible open, partial colectomy, possible ostomy and on schedule Friday am. With above assessment, I've recommended the following for today: 1. Continue current cares 2. Clear liquid diet only 3. To OR on Friday Thank you again for your great care of this very pleasant patient and wonderful family. If there are any questions, please feel free to call me at [phone]. TOTAL VISIT TIME: 20 minutes of which more than half was spent in [id number] discussion with the patient, possibly including family, as well as coordination of care between multiple physicians and providers. Disclaimer: Inadvertent spelling or grammatical errors are likely due to EHR/ dictation software use and do not reflect on the overall quality of patient care. Updated Clinical Summary: A very-pleasant 65-year-old gentleman with comorbidities including hypertension , who was initially admitted to [facility] through ED on 06/05/2015 with signs and symptoms consistent with anemia that eventually was shown to be a large, nearly obstructing mass approximately 12 cm from the anal verge up to the area of the rectosigmoid junction on colonoscopy 06/07/2015. Plan at that time was neoadjuvant treatment with chemoradiation followed by restaging and surgical resection. Patient underwent radiation therapy (Dr. Aranda) that ended September 2015 (patient's recollection was November 2015). Discussions with multiple colleagues revealed evidence that the patient had been not following instructions and there were barriers to get the patient to surgical intervention. At least part of the barriers were due to patient factors alone. Patient reported having contacted my office approximately 5 times to try and make an appointment and was told that we "do not except" his insurance. Careful review of office records showed no documentation of patient calling during this timeframe. Patient also believes that he had and [employer] as his insurance carrier, but his insurance carrier was [employer] (accepted by our program). Patient represented to [facility] through ED with constipation, vomiting , abdominal distension and dilated loops of small intestine on 04/01/16. Significant comorbidities included not insignificant malnutrition with BMI 15.8 and prehydration, albumin of 3.6 in the setting of inability to feed enterically. Small area of liver in segment 6 and two very small areas in segment 4a of questionable significance (too small to tell) benign path vs. metastatic disease. Comorbidity List: 1. Rectal malignancy, s/p chemotherapy and radiation June to Nov 2015 2. Hypertension 3. Cachexia 4. Colonoscopy June 2015 Subjective: No reported major events or complaints; minor reported abd pain and under control with medications; reports and feels ok; still with nausea; no major vomiting; no sob or cp; + flatus; + BM (small); + activity Objective: Vitals: See below Exam: GENERAL: On exam, the patient was laying in bed and appeared to be comfortable and in no acute distress. ABDOMEN: Soft, nontender and nondistended. There are no peritoneal signs or guarding. SKIN: Skin appears to be pink and feels warm to touch. NEUROLOGIC: Patient is awake, alert, and follows commands appropriately. Exam/Review of Systems Vital Signs Vitals Vital Signs Date Time Temp Pulse Resp B/P Pulse Ox O2 Delivery O2 Flow Rate FiO2 04/10/16 08:22 83 167/79 04/10/16 07:48 98.3 20 99 04/07/16 07:27 Room Air Intake and Output 04/09/16 04/09/16 04/10/16 15:00 23:00 07:00 Intake Total 2245 ml 1600 ml Output Total 550 ml Balance 1695 ml 1600 ml Results Result Diagram: 04/10/16 0430 04/10/16 043 DIVINE BEY M.D. Apr 10, 2016 12:19
[2016-04-10] MEDS: SOD CHLORIDE 0.45% 1,000 ML IV SCH ×2 (13:02→23:27)
[2016-04-10 19:00] VITALS: BP 164/83; RESP 18
[2016-04-10 23:50] VITALS: BP 136/64; RESP 18
[2016-04-11] MEDS: HYDROmorphONE 1 MG/ML SYG IV PRN ×6 (01:36→22:34)
[2016-04-11 05:16] LABS: BASOPHILS % 0.3 % (0.0-2.0); EOSINOPHILS % 0.3 % (0.0-7.0); HEMATOCRIT 27.5 % (42.0-52.0); HEMOGLOBIN 8.9 g/dl (14.0-18.0); LYMPHOCYTES # 0.5 10^3/ul (0.8-2.9); MEAN CORPUSCULAR HEMOGLOBIN 22.8 pg (29.0-33.0); MEAN CORPUSCULAR HGB CONC 32.3 g/dl (32.0-37.0); MEAN CORPUSCULAR VOLUME 70.4 fl (82.0-101.0); MEAN PLATELET VOLUME 7.2 fl (7.4-10.4); MONOCYTE # 0.9 10^3/ul (0.3-0.9); MONOCYTES % 15.4 % (0.0-11.0); NEUTROPHIL # 4.3 10^3/ul (1.6-7.5); PLATELET COUNT 393 10^3/UL (140-440); RED BLOOD COUNT 3.91 10^6/ul (4.70-6.10); RED CELL DISTRIBUTION WIDTH 16.6 % (11.5-14.5); UNCORRECTED WBC 5.8 10^3/ul (4.8-10.8); WHITE BLOOD COUNT 5.8 10^3/ul (4.8-10.8)
[2016-04-11] MEDS: PANTOPRAZOLE (EC) 40 MG TAB PO SCH ×2 (05:27→17:19)
[2016-04-11 05:31] LABS: PHOSPHORUS 2.4 mg/dl (2.5-4.9)
[2016-04-11 05:39] LABS: CONDITION 1; LH ANALYZER COMMENTS 1
[2016-04-11] MEDS: SOD CHLORIDE 0.45% 1,000 ML IV SCH ×2 (05:44→17:19)
[2016-04-11 06:13] LABS: POTASSIUM 3.4 mmol/L (3.5-5.1)
[2016-04-11 06:15] LABS: CREATININE 0.51 mg/dl (0.61-1.24)
[2016-04-11 06:16] LABS: CALCIUM 7.4 mg/dl (8.4-10.2)
[2016-04-11] MEDS: OXYCODONE/ACETAMINOPHEN (5/325) TAB PO PRN ×4 (07:34→23:32)
[2016-04-11 07:43] VITALS: BP 149/79; RESP 18
[2016-04-11] MEDS: FLUCONAZOLE 100 MG TAB PO SCH (08:28)
[2016-04-11] MEDS: FERROUS SULFATE (EC) 325 MG TAB PO SCH ×3 (08:28→20:48)
[2016-04-11] MEDS: HEPARIN 5,000 UNIT/0.5 ML SYG SC SCH (08:35)
--- NOTE | 2016-04-11 09:03 | PN ---
Date/Time of Note Date/Time of Note DATE: 04/11/16 TIME: 08:59 Assessment/Plan VTE Prophylaxis VTE Prophylaxis Intervention: heparin Lines/Catheters IV Catheter Type (from Nrs): Peripheral IV Assessment/Plan Chief Complaint/Hosp Course 1. Acute abdominal pain, most probably secondary to ileus. Continue full liquid diet. Advancement of diet as per surgery. 2. Severe ulcerative esophagitis. Continue proton pump inhibitors. Continue fluconazole for any possible acrmina esophagitis. 3. Gastritis. Continue proton pump inhibitors. 4. Moderately differentiated adenocarcinoma of the rectum. Continue oncology and surgical recommendations. 5. Microcytic, hypochromic anemia with underlying iron deficiency. Continue iron supplements. 6. Essential hypertension. Blood pressure fairly well controlled. Continue p.r.n. antihypertensives. 7. Fluid, electrolytes and nutrition. Clear liquid diet. 8. Deep venous thrombosis prophylaxis. Subcutaneous heparin. 9. Gastrointestinal prophylaxis. Proton pump inhibitors. 10. PLAN: Continue current care. Replete potassium. Plan for surgical intervention on 04/12/2016. Hold heparin. The case was discussed with Dr. Enriquez. Problems: Subjective 24 Hr Interval Summary Free Text/Dictation Complains of poor oral intake. Complains of abdominal pain. Exam/Review of Systems Vital Signs Vitals Vital Signs Date Time Temp Pulse Resp B/P Pulse Ox O2 Delivery O2 Flow Rate FiO2 04/11/16 07:43 97.8 91 18 149/79 98 04/07/16 07:27 Room Air Intake and Output 04/10/16 04/10/16 04/11/16 15:00 23:00 07:00 Intake Total 1650 ml 800 ml Output Total 1000 ml Balance 650 ml 800 ml Exam GENERAL: This is a thin, frail-looking male patient lying in bed in no apparent distress. HEENT: Head normocephalic and atraumatic. Eyes: Anicteric sclerae. Conjunctivae clear. ENT: Nasal septum is midline. Oral mucosa is moist. NECK: Supple. No JVD noticed. RESPIRATORY: Bilaterally clear to auscultation. No adventitious breath sounds. No use of accessory muscles of respiration. CARDIAC: Regular rate and rhythm. No murmurs heard. ABDOMEN: Soft, nontender and nondistended. Bowel sounds hypoactive in all 4 quadrants. GENITOURINARY: Deferred. EXTREMITIES: No cyanosis, no clubbing, no edema. Peripheral pulses are palpable. NEUROLOGIC: The patient is awake, alert and oriented. Cranial nerves are grossly intact. Results Result Diagram: 04/11/1641604/11/16416 Results 24 hrs Laboratory Tests Test 04/11/16 04:17 Anion Gap 12 Basophils # 0.0 Basophils % 0.3 Blood Morphology Comment Blood Urea Nitrogen 9 Calcium Level 7.4 L Carbon Dioxide Level 25 Chloride Level 99 Creatinine 0.51 L Eosinophils # 0.0 Eosinophils % 0.3 Glucose Level 73 Hematocrit 27.5 L Hemoglobin 8.9 L Lymphocytes # 0.5 L Lymphocytes % 9.0 L Magnesium Level 2.0 Mean Corpuscular Hemoglobin 22.8 L Mean Corpuscular Hemoglobin Concent 32.3 Mean Corpuscular Volume 70.4 L Mean Platelet Volume 7.2 L Monocytes # 0.9 Monocytes % 15.4 H Neutrophils # 4.3 Neutrophils % 75.0 Nucleated Red Blood Cells # 0.0 Nucleated Red Blood Cells % 0.0 Phosphorus Level 2.4 L Platelet Count 393 Potassium Level 3.4 L Red Blood Count 3.91 L Red Cell Distribution Width 16.6 H Sodium Level 133 L White Blood Count 5.8 Medications Medications Current Medications Ondansetron HCl (Zofran Inj) 4 mg Q6H PRN IV NAUSEA AND/OR VOMITING Last administered on 04/10/16 17:27; Admin Dose 4 MG; Start 04/01/16 at 19:30 Acetaminophen (Tylenol Tab) 650 mg Q6H PRN PO PAIN LEVEL 1-3 OR FEVER Last administered on 04/03/16 19:12; Admin Dose 650 MG; Start 04/01/16 at 19:30 Acetaminophen/ Hydrocodone Bitart ([place] (5/325)) 1 tab Q6H PRN PO MODERATE PAIN LEVEL 4-6 Last administered on 04/09/16 11:27; Admin Dose 1 TAB; Start at 19:30 Morphine Sulfate (morphine) 2 mg Q4H PRN IV SEVERE PAIN LEVEL 7-10 Last administered on 04/03/16 09:20; Admin Dose 2 MG; Start 04/01/16 at 19:30 Docusate Sodium (Colace) 100 mg Q12H PRN PO CONSTIPATION; Start 04/01/16 at 19: 30 Magnesium Hydroxide (Milk Of Mag) 30 ml DAILY PRN PO CONSTIPATION Last administered on 04/04/16 23:30; Admin Dose 30 ML; Start 04/01/16 at 19:30 Sodium Biphosphate/ Sodium Phosphate (Fleet Enema) 133 ml DAILY PRN [place] CONSTIPATION Last administered on 04/03/16 09:00; Admin Dose 133 ML; Start 04/01 at 19:30 Heparin Sodium (Porcine) 5000 unit 5,000 unit Q12 SC Last administered on 08:35; Admin Dose 5,000 UNIT; Start 04/01/16 at 21:00 Sodium Chloride (1/2 NS) 1,000 ml @ 75 mls/hr [id number] IV Last administered on 04/10/16 23:27; Admin Dose 75 MLS/HR; Start 04/01/16 at 19:04 Lorazepam (Ativan) 0.5 mg Q6H PRN IV ANXIETY Last administered on 04/03/16 12: 14; Admin Dose 0.5 MG; Start 04/01/16 at 19:30 Hydralazine HCl (Apresoline) 10 mg Q6H PRN IV ELEVATED BLOOD PRESSURE; Start at 19:30 Nitroglycerin (Nitroglycerin (Sl Tab) 0.4 Mg) 1 tab Q5M PRN SL ANGINA; Start at 19:30 Morphine Sulfate (morphine) 4 mg Q4H PRN IV PAIN Last administered on 23:23; Admin Dose 4 MG; Start 04/02/16 at 22:00 Fluconazole (Diflucan) 100 mg DAILY PO Last administered on 04/11/16 08:28; Admin Dose 100 MG; Start 04/03/16 at 19:30 Ferrous Sulfate (Ferrous Sulfate (Ec)) 325 mg TID PO Last administered on 08:28; Admin Dose 325 MG; Start 04/04/16 at 13:00 Hydromorphone HCl (Dilaudid) 1 mg Q4H PRN IV PAIN Last administered on 05:27; Admin Dose 1 MG; Start 04/06/16 at 14:30 Oxycodone/ Acetaminophen (Percocet (5/ 325)) 2 tab Q4H PRN PO PAIN Last administered on 04/11/16 07:34; Admin Dose 2 TAB; Start 04/06/16 at 11:30 Pantoprazole (Protonix Tab) 40 mg BID@06,18 PO Last administered on 04/11/16t 05 :27; Admin Dose 40 MG; Start 04/06/16 at 18:00 Metoclopramide HCl (Reglan) 10 mg Q6H PRN IV NAUSEA; Start 04/08/16 at 06:00 YUSUF POLLOCK NP Apr 11, 2016 09:03
--- NOTE | 2016-04-11 10:01 | PN ---
Date/Time of Note Date/Time of Note DATE: 04/11/16 TIME: 09:47 Assessment/Plan Lines/Catheters IV C[facility]ter Type (from [facility]): Peripheral IV Assessment/Plan Assessment/Plan [facility] Progress Note Date of Service: 04/11/16 Today's Impression & Plan: Overall stable with partial SBO vs ileus in the setting of rectosigmoid malignancy. Oral intake remains inadequate through his GI tract. Awaiting laparoscopic, possible open, partial colectomy, possible ostomy and on schedule Friday am. With above assessment, I've recommended the following for today: 1. Continue current cares 2. Clear liquid diet only and NPO after midnight 3. To OR tomorrow Thank you again for your great care of this very pleasant patient and wonderful family. If there are any questions, please feel free to call me at [phone]. TOTAL VISIT TIME: 20 minutes of which more than half was spent in [id number] discussion with the patient, possibly including family, as well as coordination of care between multiple physicians and providers. Disclaimer: Inadvertent spelling or grammatical errors are likely due to EHR/ dictation software use and do not reflect on the overall quality of patient care. Updated Clinical Summary: A very-pleasant 65-year-old gentleman with comorbidities including hypertension , who was initially admitted to [facility] through ED on 06/05/2015 with signs and symptoms consistent with anemia that eventually was shown to be a large, nearly obstructing mass approximately 12 cm from the anal verge up to the area of the rectosigmoid junction on colonoscopy 06/07/2015. Plan at that time was neoadjuvant treatment with chemoradiation followed by restaging and surgical resection. Patient underwent radiation therapy (Dr. Aranda) that ended September 2015 (patient's recollection was November 2015). Discussions with multiple colleagues revealed evidence that the patient had been not following instructions and there were barriers to get the patient to surgical intervention. At least part of the barriers were due to patient factors alone. Patient reported having contacted my office approximately 5 times to try and make an appointment and was told that we "do not except" his insurance. Careful review of office records showed no documentation of patient calling during this timeframe. Patient also believes that he had and [employer] as his insurance carrier, but his insurance carrier was [employer] (accepted by our program). Patient represented to [facility] through ED with constipation, vomiting , abdominal distension and dilated loops of small intestine on 04/01/16. Significant comorbidities included not insignificant malnutrition with BMI 15.8 and prehydration, albumin of 3.6 in the setting of inability to feed enterically. Small area of liver in segment 6 and two very small areas in segment 4a of questionable significance (too small to tell) benign path vs. metastatic disease. Comorbidity List: 1. Rectal malignancy, s/p chemotherapy and radiation June to Nov 2015 2. Hypertension 3. Cachexia 4. Colonoscopy June 2015 Subjective: No reported major events or complaints; no major abd pain and under control with medications; reports and feels ok with stomach a bit softer since resumption of clear liquid intake only; no major nausea; no major vomiting; no sob or cp; + flatus; + BM (small); + activity Objective: Vitals: See below Exam: GENERAL: On exam, the patient was laying in bed and appeared to be comfortable and in no acute distress. ABDOMEN: Soft, nontender and nondistended. There are no peritoneal signs or guarding. SKIN: Skin appears to be pink and feels warm to touch. NEUROLOGIC: Patient is awake, alert, and follows commands appropriately. Exam/Review of Systems Vital Signs Vitals Vital Signs Date Time Temp Pulse Resp B/P Pulse Ox O2 Delivery O2 Flow Rate FiO2 04/11/16 07:43 97.8 91 18 149/79 98 04/07/16 07:27 Room Air Intake and Output 04/10/16 04/10/16 04/11/16 15:00 23:00 07:00 Intake Total 1650 ml 800 ml Output Total 1000 ml Balance 650 ml 800 ml Results Result Diagram: 04/11/16 0417 04/11/16 0417 DIVINE BEY M.D. Apr 11, 2016 09:50
[2016-04-11] MEDS ORDERED: POTASSIUM PHOSPHATE 15 MM in SOD CHLORIDE 0.9% 250 ML IVPB ONE (11:00)
--- NOTE | 2016-04-11 12:06 | CONS ---
Date/Time of Note Date/Time of Note DATE: 04/11/16 TIME: 12:06 Assessment/Plan Assessment/Plan Chief Complaint/Hosp Course ABD PAIN, vomiting, and constipation- SBO VS ILEUS conservative management for now SURG F-UP AWAITING SURGERY - PER DR VILLARREAL RECTAL ADENOCARCINOMA- POST chemo/xrt CEA-N NONCOMPLIANT WITH SURGICAL F-UP R/O RECURRENCE OF MALIGNANCY REASON FOR ILEUS VS SBO AGREE WITH restaging; include a liver CT and pelvic MRI SEVERE IRON DEFICIENCY WITH Microcytic, hypochromic anemia. MONITOR BLOOD COUNT CLOSELY h/h- dropping no bleeding on IV IRON PRBC PRN Distal esophagitis with gastritis. Continue proton pump inhibitors. HTN POOR COMPLIANCE Problems: Consultation Date/Type/Reason Admit Date/Time Apr 01, 2016 at 18:54 Type of Consultation: [facility] Referring Provider: LINDA WALDROP MD 24 HR Interval Summary Free Text/Dictation . Awaiting laparoscopic, possible open, partial colectomy, possible ostomy and on schedule Friday. Exam/Review of Systems Vital Signs Vitals Vital Signs Date Time Temp Pulse Resp B/P Pulse Ox O2 Delivery O2 Flow Rate FiO2 04/11/16 07:43 97.8 91 18 149/79 98 04/07/16 07:27 Room Air Intake and Output 04/10/16 04/10/16 04/11/16 15:00 23:00 07:00 Intake Total 1650 ml 800 ml Output Total 1000 ml Balance 650 ml 800 ml Exam GENERAL: This is a thin, frail-looking male patient lying in bed in no apparent distress. HEENT: Head normocephalic and atraumatic. Eyes: Anicteric sclerae. Conjunctivae clear. ENT: Nasal septum is midline. Oral mucosa is moist. NECK: Supple. No JVD noticed. RESPIRATORY: Bilaterally clear to auscultation. No adventitious breath sounds. No use of accessory muscles of respiration. CARDIAC: Regular rate and rhythm. No murmurs heard. ABDOMEN: Soft, nontender and nondistended. Bowel sounds hypoactive in all 4 quadrants. GENITOURINARY: Deferred. EXTREMITIES: No cyanosis, no clubbing, no edema. Peripheral pulses are palpable. NEUROLOGIC: The patient is awake, alert and oriented. Cranial nerves are grossly intact. Results Result Diagram: 04/11/16 0417 04/11/16416 Results 24 hrs Laboratory Tests Test 04/11/16 04:17 Anion Gap 12 Basophils # 0.0 Basophils % 0.3 Blood Morphology Comment Blood Urea Nitrogen 9 Calcium Level 7.4 L Carbon Dioxide Level 25 Chloride Level 99 Creatinine 0.51 L Eosinophils # 0.0 Eosinophils % 0.3 Glucose Level 73 Hematocrit 27.5 L Hemoglobin 8.9 L Lymphocytes # 0.5 L Lymphocytes % 9.0 L Magnesium Level 2.0 Mean Corpuscular Hemoglobin 22.8 L Mean Corpuscular Hemoglobin Concent 32.3 Mean Corpuscular Volume 70.4 L Mean Platelet Volume 7.2 L Monocytes # 0.9 Monocytes % 15.4 H Neutrophils # 4.3 Neutrophils % 75.0 Nucleated Red Blood Cells # 0.0 Nucleated Red Blood Cells % 0.0 Phosphorus Level 2.4 L Platelet Count 393 Potassium Level 3.4 L Red Blood Count 3.91 L Red Cell Distribution Width 16.6 H Sodium Level 133 L White Blood Count 5.8 Medications Medications Current Medications Ondansetron HCl (Zofran Inj) 4 mg Q6H PRN IV NAUSEA AND/OR VOMITING Last administered on 04/10/16 17:27; Admin Dose 4 MG; Start 04/01/16 at 19:30 Acetaminophen (Tylenol Tab) 650 mg Q6H PRN PO PAIN LEVEL 1-3 OR FEVER Last administered on 04/03/16 19:12; Admin Dose 650 MG; Start 04/01/16 at 19:30 Acetaminophen/ Hydrocodone Bitart ([place] (5/325)) 1 tab Q6H PRN PO MODERATE PAIN LEVEL 4-6 Last administered on 04/09/16 11:27; Admin Dose 1 TAB; Start at 19:30 Morphine Sulfate (morphine) 2 mg Q4H PRN IV SEVERE PAIN LEVEL 7-10 Last administered on 04/03/16 09:20; Admin Dose 2 MG; Start 04/01/16 at 19:30 Docusate Sodium (Colace) 100 mg Q12H PRN PO CONSTIPATION; Start 04/01/16 at 19: 30 Magnesium Hydroxide (Milk Of Mag) 30 ml DAILY PRN PO CONSTIPATION Last administered on 04/04/16 23:30; Admin Dose 30 ML; Start 04/01/16 at 19:30 Sodium Biphosphate/ Sodium Phosphate (Fleet Enema) 133 ml DAILY PRN [place] CONSTIPATION Last administered on 04/03/16 09:00; Admin Dose 133 ML; Start 04/01 at 19:30 Heparin Sodium (Porcine) 5000 unit 5,000 unit Q12 SC Last administered on 08:35; Admin Dose 5,000 UNIT; Start 04/01/16 at 21:00; Status Future Hold Sodium Chloride (1/2 NS) 1,000 ml @ 75 mls/hr [id number] IV Last administered on 04/10/16 23:27; Admin Dose 75 MLS/HR; Start 04/01/16 at 19:04 Lorazepam (Ativan) 0.5 mg Q6H PRN IV ANXIETY Last administered on 04/03/16 12: 14; Admin Dose 0.5 MG; Start 04/01/16 at 19:30 Hydralazine HCl (Apresoline) 10 mg Q6H PRN IV ELEVATED BLOOD PRESSURE; Start at 19:30 Nitroglycerin (Nitroglycerin (Sl Tab) 0.4 Mg) 1 tab Q5M PRN SL ANGINA; Start at 19:30 Morphine Sulfate (morphine) 4 mg Q4H PRN IV PAIN Last administered on 23:23; Admin Dose 4 MG; Start 04/02/16 at 22:00 Fluconazole (Diflucan) 100 mg DAILY PO Last administered on 04/11/16 08:28; Admin Dose 100 MG; Start 04/03/16 at 19:30 Ferrous Sulfate (Ferrous Sulfate (Ec)) 325 mg TID PO Last administered on 08:28; Admin Dose 325 MG; Start 04/04/16 at 13:00 Hydromorphone HCl (Dilaudid) 1 mg Q4H PRN IV PAIN Last administered on 10:39; Admin Dose 1 MG; Start 04/06/16 at 14:30 Oxycodone/ Acetaminophen (Percocet (5/ 325)) 2 tab Q4H PRN PO PAIN Last administered on 04/11/16 07:34; Admin Dose 2 TAB; Start 04/06/16 at 11:30 Pantoprazole (Protonix Tab) 40 mg BID@06,18 PO Last administered on 04/11/16 05 :27; Admin Dose 40 MG; Start 04/06/16 at 18:00 Metoclopramide HCl 10 mg 10 mg Q6H PRN IV NAUSEA; Start 04/08/16 at 06:00 Potassium Phosphate/Sodium Chloride (K Phos (Mm)/NS) 255 ml @ 63.75 mls/ hr ONCE ONCE IVPB Last administered on 04/11/16 11:47; Admin Dose 63.75 MLS/HR; Start 04/11/16 at 11:00; Stop 04/11/16 at 14:59 JASMINA PALOMARES MD Apr 11, 2016 12:06
[2016-04-11 19:00] VITALS: BP 157/81; RESP 18
[2016-04-12] VITALS (30 sets, daily range): BP systolic 90–157; BP diastolic 52–77; PULSE 73–112; RESP 6–18
[2016-04-12] MEDS: HYDROmorphONE 1 MG/ML SYG IV PRN ×5 (02:38→21:56)
[2016-04-12] MEDS: PANTOPRAZOLE (EC) 40 MG TAB PO SCH (06:00)
[2016-04-12 06:17] LABS: ADD SCAN DIFF NO; BASOPHILS % 0.2 % (0.0-2.0); EOSINOPHILS % 0.7 % (0.0-7.0); HEMATOCRIT 29.6 % (42.0-52.0); HEMOGLOBIN 9.2 g/dl (14.0-18.0); LYMPHOCYTES # 0.7 10^3/ul (0.8-2.9); LYMPHOCYTES % 12.8 % (15.0-51.0); MEAN CORPUSCULAR HEMOGLOBIN 22.1 pg (29.0-33.0); MEAN CORPUSCULAR HGB CONC 31.1 g/dl (32.0-37.0); MEAN CORPUSCULAR VOLUME 71.2 fl (82.0-101.0); MONOCYTE # 0.7 10^3/ul (0.3-0.9); MONOCYTES % 12.1 % (0.0-11.0); NEUTROPHIL # 4.3 10^3/ul (1.6-7.5); NEUTROPHILS % 73.2 % (39.0-77.0); PLATELET COUNT 389 10^3/UL (140-415); RED BLOOD COUNT 4.16 10^6/ul (4.70-6.10); RED CELL DISTRIBUTION WIDTH 17.5 % (11.5-14.5); WHITE BLOOD COUNT 5.8 10^3/ul (4.8-10.8)
[2016-04-12 06:27] LABS: MAGNESIUM 2.1 mg/dl (1.7-2.5); PHOSPHORUS 2.5 mg/dl (2.5-4.9)
[2016-04-12 06:58] LABS: ALBUMIN 2.2 g/dl (3.3-4.9)
[2016-04-12 06:59] LABS: POTASSIUM 3.8 mmol/L (3.5-5.1)
[2016-04-12 07:01] LABS: ALBUMIN/GLOBULIN RATIO 0.95; BILIRUBIN,INDIRECT 0.1 mg/dl (0-1.1); BILIRUBIN,TOTAL 0.1 mg/dl (0.2-1.3); CREATININE 0.52 mg/dl (0.61-1.24); TOTAL PROTEIN 4.5 g/dl (6.1-8.1)
[2016-04-12 07:02] LABS: CALCIUM 7.6 mg/dl (8.4-10.2)
[2016-04-12] MEDS ORDERED: BUPIVACAINE 0.5%/EPI (SDV) 30 ML INJ ONE (07:49)
[2016-04-12] MEDS ORDERED: PROPOFOL 20 ML ONE (08:00)
[2016-04-12] MEDS ORDERED: ROCURONIUM 50 MG INJ ONE ×2 (08:00→09:12)
[2016-04-12] MEDS ORDERED: BUPIVACAINE 0.5%/EPI (SDV) 30 ML INJ INJ ONE (08:00)
[2016-04-12] MEDS ORDERED: MIDAZOLAM 1 MG/ML 2 ML INJ ONE (08:00)
--- NOTE | 2016-04-12 08:00 | HPN ---
Date/Time of Note Date/Time of Note DATE: 04/12/16 TIME: 08:00 Interval H&P Admission Note Pt. seen H&P reviewed: No system changes Pt. seen H&P reviewed. No system changes (I attest that I have seen and examined the patient and reviewed the operation in detail, as well as its risks , benefits and alternatives of the operation). I attest that I have seen and examined the patient and reviewed in detail the operation, and its associated risks, benefits and alternative. I have answered all the patient's questions to the best of my ability and the patient wishes to proceed. Please refer to rest of electronic medical record for additional updates. DIVINE BEY M.D. Apr 12, 2016 08:00
[2016-04-12] MEDS ORDERED: METOCLOPRAMIDE 10 MG INJ ONE (08:01)
[2016-04-12] MEDS ORDERED: PHENYLephrine (100 MCG/ML) 5ML SYG ONE ×4 (08:39→14:16)
[2016-04-12] MEDS: FERROUS SULFATE (EC) 325 MG TAB PO SCH ×3 (09:00→20:03)
[2016-04-12] MEDS: FLUCONAZOLE 100 MG TAB PO SCH (09:00)
[2016-04-12] MEDS ORDERED: HYDROmorphONE 2 MG/ML SYG ONE (09:37)
[2016-04-12] MEDS ORDERED: LIDOCAINE 2%/EPI 30 ML INJ ONE (09:55)
[2016-04-12] MEDS ORDERED: LIDOCAINE 2% (SDV) 5 ML INJ ONE ×2 (09:55→13:05)
--- NOTE | 2016-04-12 11:11 | RADRPT ---
PROCEDURE: CHEST 1VW CLINICAL INDICATION: Preoperative TECHNIQUE: Single frontal view of the chest was obtained COMPARISON: CT from 06/09/2015 FINDINGS: The cardiac size is normal. Aortic vascular calcifications are demonstrated. There is no pulmonary vascular congestion. The lungs are clear. No consolidation, effusion, or pneumothorax. Mild degenerative changes of the visualized osseous structures are visualized. IMPRESSION: 1. No acute cardiopulmonary process. 2. Atherosclerosis. RPTAT:PP .Jimmy Machuca MD, MD Date Time Electronically viewed and signed by .Jimmy Machuca MD, MD on 04/12/2016 11:11 .V/
[2016-04-12] MEDS ORDERED: PIPER-TAZO 3.375 GM IV (PMX) 100 ML ONE (11:24)
[2016-04-12] MEDS ORDERED: VASOPRESSIN 20 UNITS INJ ONE (11:40)
[2016-04-12] MEDS ORDERED: HYDROmorphONE (0.2 MG/ML) 10ML SYG IV PRN ×3 (13:00)
[2016-04-12] MEDS ORDERED: NALOXONE (0.4 MG/ML) INJ IV PRN (13:00)
[2016-04-12] MEDS ORDERED: HYDROmorphONE 1 MG/ML SYG IV PRN ×4 (13:00→15:00)
[2016-04-12] MEDS ORDERED: KETOROLAC 30 MG INJ IV PRN (13:00)
[2016-04-12] MEDS ORDERED: DIPHENHYDRAMINE 50 MG INJ IV PRN ×2 (13:00)
[2016-04-12] MEDS ORDERED: METOCLOPRAMIDE 10 MG INJ IV PRN (13:00)
[2016-04-12] MEDS ORDERED: ONDANSETRON 4 MG INJ IV PRN ×2 (13:00)
[2016-04-12] MEDS ORDERED: EPHEDrine SULFATE 50 MG/5 ML SYG IV PRN (13:00)
[2016-04-12] MEDS ORDERED: MEPERIDINE 25 MG INJ IV PRN (13:00)
[2016-04-12] MEDS ORDERED: GLYCOPYRROLATE 1 MG INJ ONE (13:26)
[2016-04-12] MEDS ORDERED: KETOROLAC 30 MG INJ ONE (13:26)
[2016-04-12] MEDS ORDERED: NEOSTIGMINE 3 MG/3 ML SYRINGE ONE (13:26)
--- NOTE | 2016-04-12 13:54 | CONS ---
Date/Time of Note Date/Time of Note DATE: 04/12/16 TIME: 13:54 Assessment/Plan Assessment/Plan Chief Complaint/Hosp Course ABD PAIN, vomiting, and constipation- SBO VS ILEUS SURGERY - TODAY RECTAL ADENOCARCINOMA- POST chemo/xrt CEA-N NONCOMPLIANT WITH SURGICAL F-UP R/O RECURRENCE OF MALIGNANCY REASON FOR ILEUS VS SBO AGREE WITH restaging; include a liver CT and pelvic MRI SEVERE IRON DEFICIENCY WITH Microcytic, hypochromic anemia. MONITOR BLOOD COUNT CLOSELY h/h- dropping no bleeding on IV IRON PRBC PRN Distal esophagitis with gastritis. Continue proton pump inhibitors. HTN POOR COMPLIANCE Problems: Consultation Date/Type/Reason Admit Date/Time Apr 01, 2016 at 18:54 [facility] Referring Provider: LINDA WALDROP MD 24 HR Interval Summary Free Text/Dictation FOR SURGERY TODAY Exam/Review of Systems Vital Signs Vitals Vital Signs Date Time Temp Pulse Resp B/P Pulse Ox O2 Delivery O2 Flow Rate FiO2 04/12/16 06:44 98.7 81 18 157/77 99 Room Air Intake and Output 04/11/16 04/11/16 04/12/16 15:00 23:00 07:00 Intake Total 300 ml 1095 ml 1250 ml Output Total 800 ml Balance 300 ml 295 ml 1250 ml Exam GENERAL: This is a thin, frail-looking male patient lying in bed in no apparent distress. HEENT: Head normocephalic and atraumatic. Eyes: Anicteric sclerae. Conjunctivae clear. ENT: Nasal septum is midline. Oral mucosa is moist. NECK: Supple. No JVD noticed. RESPIRATORY: Bilaterally clear to auscultation. No adventitious breath sounds. No use of accessory muscles of respiration. CARDIAC: Regular rate and rhythm. No murmurs heard. ABDOMEN: Soft, nontender and nondistended. Bowel sounds hypoactive in all 4 quadrants. GENITOURINARY: Deferred. EXTREMITIES: No cyanosis, no clubbing, no edema. Peripheral pulses are palpable. NEUROLOGIC: The patient is awake, alert and oriented. Cranial nerves are grossly intact. Results Result Diagram: 04/12/16 0449 04/12/16 0449 Results 24 hrs Laboratory Tests Test 04/12/16 04:49 Alanine Aminotransferase (ALT/SGPT) 34 Albumin 2.2 L Albumin/Globulin Ratio 0.95 Alkaline Phosphatase 159 H Anion Gap 12 Aspartate Amino Transf (AST/SGOT) 26 Basophils # 0.0 Basophils % 0.2 Blood Urea Nitrogen 10 Calcium Level 7.6 L Carbon Dioxide Level 26 Chloride Level 102 Creatinine 0.52 L Direct Bilirubin 0.00 Eosinophils # 0.0 Eosinophils % 0.7 Globulin 2.30 Glucose Level 61 #L Hematocrit 29.6 L Hemoglobin 9.2 L Indirect Bilirubin 0.1 Lymphocytes # 0.7 L Lymphocytes % 12.8 L Magnesium Level 2.1 Mean Corpuscular Hemoglobin 22.1 L Mean Corpuscular Hemoglobin Concent 31.1 L Mean Corpuscular Volume 71.2 L Mean Platelet Volume 9.0 # Monocytes # 0.7 Monocytes % 12.1 H Neutrophils # 4.3 Neutrophils % 73.2 Nucleated Red Blood Cells # 0.0 Nucleated Red Blood Cells % 0.0 Phosphorus Level 2.5 Platelet Count 389 Potassium Level 3.8 Red Blood Count 4.16 L Red Cell Distribution Width 17.5 H Sodium Level 136 Total Bilirubin 0.1 L Total Protein 4.5 L White Blood Count 5.8 Medications Medications Current Medications Ondansetron HCl (Zofran Inj) 4 mg Q6H PRN IV NAUSEA AND/OR VOMITING Last administered on 04/10/16 17:27; Admin Dose 4 MG; Start 04/01/16 at 19:30 Acetaminophen (Tylenol Tab) 650 mg Q6H PRN PO PAIN LEVEL 1-3 OR FEVER Last administered on 04/03/16 19:12; Admin Dose 650 MG; Start 04/01/16 at 19:30 Acetaminophen/ Hydrocodone Bitart ([place] (5/325)) 1 tab Q6H PRN PO MODERATE PAIN LEVEL 4-6 Last administered on 04/09/16 11:27; Admin Dose 1 TAB; Start at 19:30 Morphine Sulfate (morphine) 2 mg Q4H PRN IV SEVERE PAIN LEVEL 7-10 Last administered on 04/03/16 09:20; Admin Dose 2 MG; Start 04/01/16 at 19:30 Docusate Sodium (Colace) 100 mg Q12H PRN PO CONSTIPATION; Start 04/01/16 at 19: 30 Magnesium Hydroxide (Milk Of Mag) 30 ml DAILY PRN PO CONSTIPATION Last administered on 04/04/16 23:30; Admin Dose 30 ML; Start 04/01/16 at 19:30 Sodium Biphosphate/ Sodium Phosphate (Fleet Enema) 133 ml DAILY PRN [place] CONSTIPATION Last administered on 04/03/16 09:00; Admin Dose 133 ML; Start 04/01 at 19:30 Heparin Sodium (Porcine) 5000 unit 5,000 unit Q12 SC Last administered on 08:35; Admin Dose 5,000 UNIT; Start 04/01/16 at 21:00; Status Future Hold Sodium Chloride (1/2 NS) 1,000 ml @ 75 mls/hr [id number] IV Last administered on 04/11/16 17:19; Admin Dose 75 MLS/HR; Start 04/01/16 at 19:04 Lorazepam (Ativan) 0.5 mg Q6H PRN IV ANXIETY Last administered on 04/03/16 12: 14; Admin Dose 0.5 MG; Start 04/01/16 at 19:30 Hydralazine HCl (Apresoline) 10 mg Q6H PRN IV ELEVATED BLOOD PRESSURE; Start at 19:30 Nitroglycerin (Nitroglycerin (Sl Tab) 0.4 Mg) 1 tab Q5M PRN SL ANGINA; Start at 19:30 Morphine Sulfate (morphine) 4 mg Q4H PRN IV PAIN Last administered on 23:23; Admin Dose 4 MG; Start 04/02/16 at 22:00 Fluconazole (Diflucan) 100 mg DAILY PO Last administered on 04/11/16 08:28; Admin Dose 100 MG; Start 04/03/16 at 19:30 Ferrous Sulfate (Ferrous Sulfate (Ec)) 325 mg TID PO Last administered on 20:48; Admin Dose 325 MG; Start 04/04/16 at 13:00 Hydromorphone HCl (Dilaudid) 1 mg Q4H PRN IV PAIN Last administered on 06:39; Admin Dose 1 MG; Start 04/06/16 at 14:30 Oxycodone/ Acetaminophen (Percocet (5/ 325)) 2 tab Q4H PRN PO PAIN Last administered on 04/11/16 23:32; Admin Dose 2 TAB; Start 04/06/16 at 11:30 Pantoprazole (Protonix Tab) 40 mg BID@06,18 PO Last administered on 04/11/16t 17 :19; Admin Dose 40 MG; Start 04/06/16 at 18:00 Metoclopramide HCl (Reglan) 10 mg Q6H PRN IV NAUSEA; Start 04/08/16 at 06:00 Hydromorphone HCl (Dilaudid) 1 mg Q2 PRN IV BREAKTHROUGH PAIN; Start 04/12/16 at 13:00; Stop 04/13/16 at 12:59 Hydromorphone HCl (Dilaudid) 0.2 mg Q2H PRN IV PAIN LEVEL 1-5; Start 04/12/16 at 13:00; Stop 04/13/16 at 12:59 Hydromorphone HCl (Dilaudid) 0.4 mg Q2H PRN IV PAIN LEVEL 6-10; Start 04/12/16 at 13:00; Stop 04/13/16 at 12:59 Ketorolac Tromethamine (Toradol) 30 mg Q6H PRN IV PAIN LEVEL 6-10; Start at 13:00; Stop 04/13/16 at 12:59 Diphenhydramine HCl (Benadryl) 25 mg Q4H PRN IV PRURITUS; Start 04/12/16 at 13: 00; Stop 04/13/16 at 12:59 Ondansetron HCl (Zofran Inj) 4 mg Q6H PRN IV NAUSEA AND/OR VOMITING; Start 12/17 at 13:00; Stop 04/13/16 at 12:59 Naloxone HCl (Narcan) 0.2 mg Q2M PRN IV FOR RESP RATE 8 OR LESS; Start at 13:00; Stop 04/13/16 at 12:59 JASMINA PALOMARES MD Apr 12, 2016 13:54
[2016-04-12] MEDS ORDERED: NA PHOSPHATE/BIPHOS 133 ML ENEMA PR PRN (15:00)
[2016-04-12] MEDS ORDERED: BISACODYL 10 MG SUPP PR PRN (15:00)
[2016-04-12] MEDS ORDERED: HYDROCODONE/APAP (5/325) TAB PO PRN (15:00)
--- NOTE | 2016-04-12 15:04 | OPPN ---
Date/Time of Note Date/Time of Note DATE: 04/12/16 TIME: 15:02 Operative/Procedure Note [facility] Immediate Post Operative Note: Pre-op Diagnosis: rectal caner with bowel obstruction Post-Op Diagnosis: same Procedure: resection of terminal ileum and cecum with primary anastomosis, followed by resection of sigmoid colon and performance of end colostomy Surgeon: Wendy Juárez MD Steam Frame Operator: DINA Greene Anesthesia: Anesthesiologist: Patrick Dumont MD Findings: locally advanced rectal malignancy EBL: 50 ml Blood Products: none Specimen: 4 Complication: none Disposition: to PACU Disclaimer: Inadvertent spelling and grammatical errors are likely due to EHR/ dictation use and do not reflect on the quality of the delivered patient care. DIVINE JUÁREZ M.D. Apr 12, 2016 15:04
[2016-04-12 15:15] LABS: ADD SCAN DIFF NO
[2016-04-12 15:19] LABS: ABNORMAL IP MESSAGE 1; HEMATOCRIT 30.7 % (42.0-52.0); HEMOGLOBIN 9.5 g/dl (14.0-18.0); MEAN CORPUSCULAR HEMOGLOBIN 22.4 pg (29.0-33.0); MEAN CORPUSCULAR HGB CONC 30.9 g/dl (32.0-37.0); MEAN CORPUSCULAR VOLUME 72.2 fl (82.0-101.0); MEAN PLATELET VOLUME 8.6 fl (7.4-10.4); PLATELET COUNT 345 10^3/UL (140-415); RED BLOOD COUNT 4.25 10^6/ul (4.70-6.10); RED CELL DISTRIBUTION WIDTH 17.6 % (11.5-14.5); WHITE BLOOD COUNT 5.6 10^3/ul (4.8-10.8)
[2016-04-12 15:28] LABS: INR 1.33; PARTIAL THROMBOPLASTIN TIME 32.6 Sec (25.0-35.0); PROTIME 16.6 Sec (12.2-14.2); PT RATIO 1.3
[2016-04-12 15:37] LABS: ALBUMIN 1.6 g/dl (3.3-4.9); POTASSIUM 3.3 mmol/L (3.5-5.1)
[2016-04-12 15:39] LABS: CREATININE 0.6 mg/dl (0.61-1.24)
[2016-04-12 15:40] LABS: ALBUMIN/GLOBULIN RATIO 0.84; BILIRUBIN,INDIRECT 0.1 mg/dl (0-1.1); BILIRUBIN,TOTAL 0.1 mg/dl (0.2-1.3); TOTAL PROTEIN 3.5 g/dl (6.1-8.1)
[2016-04-12 15:41] LABS: CALCIUM 6.9 mg/dl (8.4-10.2)
--- NOTE | 2016-04-12 15:43 | OPR ---
[facility] INPATIENT OPERATIVE NOTE PLACE OF SERVICE: [facility]– [place] DATE OF SURGERY: 04/12/2016 PREOPERATIVE DIAGNOSIS: 1. Rectal malignancy, s/p chemotherapy and radiation June to Nov 2015 2. Hypertension 3. Cachexia; BMI 15.8; albumin of 3.6 in the setting of inability to feed enterically 4. Colonoscopy June 2015 5. Anxiety POSTOPERATIVE DIAGNOSIS: 1. Rectal malignancy, s/p chemotherapy and radiation June to Nov 2015; obstruction end of terminal ileum as well as at the level of the rectosigmoid junction with aggressive locally advanced rectal cancer, unresectable 2. Hypertension 3. Cachexia; BMI 15.8; albumin of 3.6 in the setting of inability to feed enterically 4. Colonoscopy June 2015 5. Anxiety OPERATION: 1. Laparoscopic exploration converted to open exploration 2. Partial colectomy with removal of upper part of rectum and sigmoid colon ( modifier 22) 3. Resection of the end of terminal ileum along with cecum with primary anastomosis 4. Performance of an colostomy using distal descending colon 5. Extensive lysis of adhesions (at least 60 minutes) 6. Intraoperative ultrasound of the liver 7. Abdominal lavage SURGEON: Divine Juárez M.D. RACK PUNCHER: 1. DINA Greene ANESTHESIA: General endotracheal tube anesthesia ANESTHESIOLOGIST: Patrick Dumont M.D. BRIEF SUMMARY: An otherwise uncomplicated but challenging resection of both involved portion of rectosigmoid as well as terminal ileum in the setting of aggressive rectal cancer with local invasion of the pelvis. BRIEF HISTORY: The patient is a very pleasant 65-year-old gentleman with comorbidities including hypertension, who was initially admitted to [facility] through ED on 06/05/2015 with signs and symptoms consistent with anemia that eventually was shown to be a large, nearly obstructing mass approximately 12 cm from the anal verge up to the area of the rectosigmoid junction on colonoscopy 06/07/2015. Plan at that time was neoadjuvant treatment with chemoradiation followed by restaging and surgical resection. Patient underwent radiation therapy (Dr. Aranda) that ended September 2015 (patient's recollection was November 2015). Discussions with multiple colleagues revealed evidence that the patient had been not following instructions and there were barriers to get the patient to surgical intervention. At least part of the barriers were due to patient factors alone. Patient reported having contacted my office approximately 5 times to try and make an appointment and was told that we "do not accept" his insurance. Careful review of office records showed no documentation of patient calling. Patient also believed that he had had [employer] as his insurance carrier, but his insurance carrier was [employer] (accepted by our program). Patient re-presented to [facility] through ED with constipation, vomiting , abdominal distension and dilated loops of small intestine on 04/01/16. Significant comorbidities included not insignificant malnutrition with BMI 15.8 and dehydration, albumin of 3.6 in the setting of inability to feed enterically. Small area of liver in segment 6 and two very small areas in segment 4a of questionable significance (too small to tell) benign path vs. metastatic disease. We attempted to treat the bowel obstruction with nonoperative management with the hope that the patient would be able to increase his oral intake and improve his nutritional status prior to potentially getting systemic chemotherapy in the neoadjuvant fashion before surgical intervention. Patient very clearly showed us that his bowels were not able to tolerate any meaningful amount of nutritional intake after a few days of this management and for this reason, and after a multidisciplinary discussion , we decided to change our treatment strategy and take the patient to the operating room. I met with the patient and family and counseled them regarding the possible options of treatment. We reviewed the operation in detail as well as the risks, benefits, alternatives, and expected outcomes of this operation. In that discussion, and over the course of a number of days, I had done my best to clarify the likely chance that the patient will have at least a temporary, if not permanent, ostomy. We had reviewed the potential for essentially multiple scenarios including unresectable stage of disease in which case only an ostomy would be performed in a palliative fashion. After careful consideration of all the risks, benefits, and alternatives, the patient and family appeared to understand those risks and wished to proceed with surgery. For a detailed report of my consultation with patient and family, please refer to my separate consultation note. STATEMENT OF THE INFORMED CONSENT: The patient and family appeared to understand the risks of the operation to include, but not be limited to risk of postoperative pain and scar tissue, possible infection or bleeding requiring other interventions such as opening the wound, placement of drainage catheters, or other operative interventions; possible injury to surrounding to structures including bowel, bladder, bile duct, or blood vessels, or solid organs such as liver, kidney, or pancreas requiring other interventions or procedures; possible leakage of bowel from anastomotic sites or suture lines causing significant increase in morbidity and mortality and requiring multiple interventions including but not limited to, placement of drainage catheters, imaging studies, as well as operative interventions; possible other source of sepsis such as urinary tract infections or pneumonias, or other sources of potentially life threatening problems such as deep venous thrombus formation causing pulmonary embolism, myocardial arrhythmias and infarctions, and even . We also briefly discussed the potential need to receive blood products and their potential complications of blood transfusion reactions, transmission of infections, or other complications. After careful consideration of all their options, the patient and family appeared to understand and wished to proceed with surgery. DESCRIPTION OF PROCEDURE: After obtaining informed consent, the patient was brought into the operating room and was placed in a normal supine position, where successful general endotracheal tube anesthesia was performed. Intravenous access was already in place and intravenous antimicrobials had been appropriately chosen and dosed prior to the operation. Patient was then placed in stirrups. The patient's abdominal skin was prepped and draped from the nipple line down to and including the groins in the usual sterile fashion. We then called a surgical time-out where the patient's identification, date of , nature of the operation, allergies, presence of intravenous antimicrobials, presence of needed equipment, and any other concerns were reviewed and agreed upon by all members of the operating room team. I then started the operation by placing a 5 mm skin incision in the right upper quadrant midclavicular subcostal area and introduced a 5 mm [employer] trocar into the peritoneal space, visualizing all the layers of the abdomen as we entered. We used direct entry technique. There was no indication of any injury to underlying structures. There was evidence of slight ascites when the tip of the trocar entered the peritoneal surface. We then insufflated the abdominal cavity to a maximum pressure of 15 mmHg and inspected the visible surfaces which did not show any obvious evidence of metastatic disease. The small intestine was dilated as expected and visualization was poor. I then placed a 9 cm skin incision in the infraumbilical midline and placed a Gelport in order to have my hand inside. With my hand inside, I was able to feel the area of the mass which appeared to be the sigmoid colon going into the pelvis. The entire area of the pelvic inlet was rock solid with what appeared to be locally aggressive disease. The peritoneal surfaces all appeared to be free of obvious metastatic disease. Surface of the liver, both anterior and posterior on the right and left also did not contain any palpable areas of tumor. Careful inspection of the pelvic inlet also demonstrated the terminal ileum involvement into the tumor right before it went into the cecum. This was obviously a complicated situation with 2 areas of obstruction, one in the distal sigmoid and rectal region and a second point of obstruction with tumor involvement of the terminal ileum. For this reason, I scrubbed out and I curb- sided one of our colorectal colleagues who also agreed that the best course of action would be to go ahead with surgery, although, plan on either a R1 or most likely an R2 result given the local extension of the tumor. The patient was not able to eat and with that condition, he would not be able to even get chemotherapy, let alone be able to live with an obstructed blind loop of colon. For this reason, I scrubbed back into the operating room and found the patient to have remained stable in my absence. We then extended the incision to just above the umbilicus in the midline using a scalpel to go through the skin and then cautery to go through the subcutaneous fat and the fascia. We then placed a Vaughan retractor and had excellent exposure to the abdominal cavity. I then focused first on the release of the terminal ileum from its involvement into the tumor. With a small amount of dissection it became very obvious that there was an underlying abscess in the pelvis which had not made its presence known, but would have eventually eroded into the abdominal cavity should it not have been addressed. With very careful dissection using a combination of blunt and sharp cautery I was able to release the involved area of terminal ileum from the tumor. We then mobilized the cecum using cautery and blunt dissection , and was able to transect across the distal ileum in a point of healthy bowel using 1 firing of the bowel (blue) load of the handheld ARLET stapler after obtaining access to the underside of the lumen of the bowel. We repeated the same process more distally past the point of cecum on the ascending colon and used LigaSure device to transect across the mesentery of this bowel. The bowel was sent to pathology for permanent sections. Right after transection of the terminal ileum and prior to transection of the ascending colon, I did place a pursestring suture on the corner of the more proximal terminal ileum limb and inserted a suction catheter and secured it in place using the pursestring and then used milking action to remove as much of the enteric contents within the small intestine as possible. We did this primarily to gain better visualization of the pelvis and indeed after completion of this step we were able to see the anatomy much better. Once the terminal ileum obstruction had been resected we reanastomosed the terminal ileum onto the ascending colon using a standard [id number] functional end-to-end staple anastomosis firing the stapler through 2 separate enterotomies that we had made on the antimesenteric border of each respective bowel. We used the blue load of the handheld stapler again and closed the enterotomy site using running 4-0 PDS suture followed by interrupted 3-0 silk pop off sutures in a Lembert fashion. This came together very nicely. I also closed the mesenteric defect using interrupted 3-0 silk sutures. We then irrigated the abdominal cavity with copious amounts of normal saline and suctioned off the excess irrigant. I then performed a very meticulous dissection of the proximal sigmoid and was able to see that the rectum had essentially auto amputated itself. The tissue distally was essentially tumor all in the pelvic brim and involved the size of the pelvis. There was physically no good way to remove this tumor and even a pelvic exenteration would not have rendered the patient R0. Also, given the patient's significant malnutrition it was ill advised to have a major operation such as this. For this reason, I mobilized the rest of the proximal sigmoid colon and chose a suitable spot on the descending colon and transected the bowel using another firing of the blue load of the handheld ARLET stapler. We used a LigaSure device to transect across the mesentery of the distal specimen side of the bowel and then sent this to pathology for permanent sections. I did have an extra piece of the descending colon that I transected off after this due to concerns about blood flow but I had mobilized the descending colon up to the splenic flexure and the rest of the colon appeared to be very healthy. Note that all of our dissections and resections were essentially R2 in nature given the fact that we were leaving tumor behind in the pelvis, but the margins proximally on the colon were all clear. At this point, we irrigated the abdominal cavity with copious amounts (at least 4 liters) of normal saline and suctioned off the excess irrigant. I performed an intraoperative ultrasound of the liver as follows: Intraoperative ultrasound of the liver: The following segments were visualized, and there were no lesions that were concerning for malignant disease in any of them: Caudate lobe: No lesion. Segment 2: No lesion. Segment 3: No lesion. Segment 4: No lesion in segment 4A and no lesion in segment 4B. Segment 5: No lesion. Segment 6: No lesion. Segment 7: No lesion. Segment 8: No lesion. We also noted antegrade flow through the portal vein on the left and right as well as the hepatic artery on the left and right and also antegrade flow through the middle right and left hepatic veins. The biliary system was slightly dilated, but not pathologically. The gallbladder appeared to have sludge in it and was distended but otherwise appeared to be normal. At this point, I created a small defect in the anterior abdominal wall slightly inferior and to the left lateral portion of the umbilicus in the mid rectus sheath using scissors to go through the skin and then removing a cylinder of fat using Igor to hold the fat and then cautery to go through onto the fascia. We then entered the fascia along the direction of fibers using cautery and did a muscle splitting maneuver to get to the posterior fascia which then we entered again using cautery. I was able to put 2-1/2 fingers through this defect and then we delivered the distal descending colon through this area. The colon appeared to stay there without any tension and the bowel remained viable throughout the remainder of the closure of the fascia which we performed using running #1 PDS suture. We washed the wounds with copious amounts of normal saline. We had placed a 19-Macedonian Carlos Manuel drain through the right lower quadrant into the pelvis and secured the drain to the skin using 2-0 nylon suture. We closed the skin using a skin stapler. I then matured the end colostomy using a standard Karen fashion with 3-0 Vicryl suture on the bowel wall. I also secured the inferior layer of the fascia onto the sides of the colon in order to help prevent parastomal hernias in the future. This came together very nicely and the ostomy appeared to be pink and viable. We then fashioned a colostomy bag over this and sterile dressing was applied to the wounds. ESTIMATED BLOOD LOSS: 50 mL BLOOD OR BLOOD PRODUCT TRANSFUSIONS: None to my knowledge. SPECIMENS: 1. Proximal terminal ileum specimen 2. Distal terminal ileum and cecectomy specimen en bloc 3. Rectosigmoid colectomy en bloc 4. Distal descending colon partial colectomy COMPLICATIONS: None. DISPOSITION: Recovery area. Disclaimer: Inadvertent spelling and grammatical errors are likely due to EHR/ dictation software use and do not reflect on the quality of delivered patient care. Also, please note that the electronic time recorded on this node does not necessarily reflect the actual time of the visit. Dictated By: DIVINE CATHERINE/KEVIN Conf#: [id number] DID#: [id number] MTDD
--- NOTE | 2016-04-12 16:02 | PN ---
Date/Time of Note Date/Time of Note DATE: 04/12/16 TIME: 16:00 Assessment/Plan VTE Prophylaxis VTE Prophylaxis Intervention: SCD's Lines/Catheters IV Catheter Type (from [facility]): Peripheral IV Urinary Cath still in place: No Assessment/Plan Chief Complaint/Hosp Course 1. Acute abdominal pain, most probably secondary to ileus. S/P resection of terminal ileum and cecum with primary anastomosis, followed by resection of sigmoid colon and performance of end colostomy on 04/12/2016. 2. Severe ulcerative esophagitis. Continue proton pump inhibitors. Continue fluconazole for any possible carmina esophagitis. 3. Gastritis. Continue proton pump inhibitors. 4. Moderately differentiated adenocarcinoma of the rectum. S/P resection of terminal ileum and cecum with primary anastomosis, followed by resection of sigmoid colon and performance of end colostomy on 04/12/2016. Continue oncology and surgical recommendations. 5. Microcytic, hypochromic anemia with underlying iron deficiency. Continue iron supplements. 6. Essential hypertension. Blood pressure fairly well controlled. Continue p.r.n. antihypertensives. 7. Fluid, electrolytes and nutrition. IVFs. Diet as per surgery. 8. Deep venous thrombosis prophylaxis. SCDs. 9. Gastrointestinal prophylaxis. Proton pump inhibitors. 10. PLAN: Postoperative care as per surgery. Advancement diet as per surgery. The case was discussed with Dr. Enriquez. Problems: Subjective 24 Hr Interval Summary Free Text/Dictation Status post colon resection today. Patient in a lot of pain. Exam/Review of Systems Vital Signs Vitals Vital Signs Date Time Temp Pulse Resp B/P Pulse Ox O2 Delivery O2 Flow Rate FiO2 04/12/16 14:59 86 9 116/72 100 Nasal Cannula 04/12/16 14:44 97.2 04/12/16 14:27 2.0 Intake and Output 04/11/16 04/11/16 04/12/16 15:00 23:00 07:00 Intake Total 300 ml 1095 ml 1250 ml Output Total 800 ml Balance 300 ml 295 ml 1250 ml Exam GENERAL: This is a thin, frail-looking male patient lying in bed in no apparent distress. HEENT: Head normocephalic and atraumatic. Eyes: Anicteric sclerae. Conjunctivae clear. ENT: Nasal septum is midline. Oral mucosa is moist. NECK: Supple. No JVD noticed. RESPIRATORY: Bilaterally clear to auscultation. No adventitious breath sounds. No use of accessory muscles of respiration. CARDIAC: Regular rate and rhythm. No murmurs heard. ABDOMEN: Left sided colostomy. Right sided MARTINEZ drain. Surgical dressings. GENITOURINARY: Coates catheter in place. EXTREMITIES: No cyanosis, no clubbing, no edema. Peripheral pulses are palpable. NEUROLOGIC: The patient is awake, alert and oriented. Cranial nerves are grossly intact. Results Result Diagram: 04/12/16 1510 04/12/16 1500 Results 24 hrs Laboratory Tests Test 04/12/16 04:49 04/12/16 15:00 04/12/16 15:10 Alanine Aminotransferase (ALT/SGPT) 34 28 Albumin 2.2 L 1.6 L Albumin/Globulin Ratio 0.95 0.84 Alkaline Phosphatase 159 H 109 Anion Gap 12 13 Aspartate Amino Transf (AST/SGOT) 26 19 Basophils # 0.0 0.0 Basophils % 0.2 0.2 Blood Urea Nitrogen 10 10 Calcium Level 7.6 L 6.9 L Carbon Dioxide Level 26 21 Chloride Level 102 104 Creatinine 0.52 L 0.60 L Direct Bilirubin 0.00 0.00 Eosinophils # 0.0 0.0 Eosinophils % 0.7 0.0 Globulin 2.30 1.90 Glucose Level 61 #L 78 Hematocrit 29.6 L 30.7 L Hemoglobin 9.2 L 9.5 L Indirect Bilirubin 0.1 0.1 Lymphocytes # 0.7 L 0.4 L Lymphocytes % 12.8 L 6.7 L Magnesium Level 2.1 Mean Corpuscular Hemoglobin 22.1 L 22.4 L Mean Corpuscular Hemoglobin Concent 31.1 L 30.9 L Mean Corpuscular Volume 71.2 L 72.2 L Mean Platelet Volume 9.0 # 8.6 Monocytes # 0.7 0.2 L Monocytes % 12.1 H 3.6 Neutrophils # 4.3 4.9 Neutrophils % 73.2 89.0 H Nucleated Red Blood Cells # 0.0 0.0 Nucleated Red Blood Cells % 0.0 0.0 Phosphorus Level 2.5 Platelet Count 389 345 Potassium Level 3.8 3.3 L Red Blood Count 4.16 L 4.25 L Red Cell Distribution Width 17.5 H 17.6 H Sodium Level 136 135 Total Bilirubin 0.1 L 0.1 L Total Protein 4.5 L 3.5 #L White Blood Count 5.8 5.6 Activated Partial Thromboplast Time 32.6 INR International Normalized Ratio 1.33 Prothrombin Time Pending Prothrombin Time Ratio 1.3 Medications Medications Current Medications Ondansetron HCl (Zofran Inj) 4 mg Q6H PRN IV NAUSEA AND/OR VOMITING Last administered on 04/10/16 17:27; Admin Dose 4 MG; Start 04/01/16 at 19:30 Acetaminophen (Tylenol Tab) 650 mg Q6H PRN PO PAIN LEVEL 1-3 OR FEVER Last administered on 04/03/16 19:12; Admin Dose 650 MG; Start 04/01/16 at 19:30 Docusate Sodium (Colace) 100 mg Q12H PRN PO CONSTIPATION; Start 04/01/16 at 19: 30 Magnesium Hydroxide (Milk Of Mag) 30 ml DAILY PRN PO CONSTIPATION Last administered on 04/04/16 23:30; Admin Dose 30 ML; Start 04/01/16 at 19:30 Lorazepam (Ativan) 0.5 mg Q6H PRN IV ANXIETY Last administered on 04/03/16 12: 14; Admin Dose 0.5 MG; Start 04/01/16 at 19:30 Hydralazine HCl (Apresoline) 10 mg Q6H PRN IV ELEVATED BLOOD PRESSURE; Start at 19:30 Nitroglycerin (Nitroglycerin (Sl Tab) 0.4 Mg) 1 tab Q5M PRN SL ANGINA; Start at 19:30 Fluconazole (Diflucan) 100 mg DAILY PO Last administered on 04/11/16 08:28; Admin Dose 100 MG; Start 04/03/16 at 19:30 Ferrous Sulfate (Ferrous Sulfate (Ec)) 325 mg TID PO Last administered on 20:48; Admin Dose 325 MG; Start 04/04/16 at 13:00 Diphenhydramine HCl (Benadryl) 25 mg Q4H PRN IV PRURITUS; Start 04/12/16 at 13: 00; Stop 04/13/16 at 12:59 Naloxone HCl 0.2 mg 0.2 mg Q2M PRN IV FOR RESP RATE 8 OR LESS; Start 04/12/16 at 13:00; Stop 04/13/16 at 12:59 Potassium Chloride/Dextrose/ Sod Cl (D5-1/2ns + KCl 20 Meq) 1,000 ml @ 100 mls/ hr Q10H IV ; Start 04/12/16 at 14:39 Acetaminophen/ Hydrocodone Bitart (Stevenson (5/325)) 1 tab Q4H PRN PO PAIN LEVEL 4 -7; Start 04/12/16 at 15:00 Acetaminophen/ Hydrocodone Bitart (Stevenson (5/325)) 2 tab Q4H PRN PO PAIN LEVEL 7 -10; Start 04/12/16 at 15:00 Hydromorphone HCl (Dilaudid) 0.5 mg Q2 PRN IV PAIN; Start 04/12/16 at 15:00 Hydromorphone HCl (Dilaudid) 1 mg Q2 PRN IV PAIN; Start 04/12/16 at 15:00 Docusate Sodium (Colace) 100 mg BID PRN PO CONSTIPATION; Start 04/12/16 at 15: 00 Bisacodyl (Dulcolax Supp) 10 mg BID PRN CA CONSTIPATION; Start 04/12/16 at 15: 00 Sodium Biphosphate/ Sodium Phosphate (Fleet Enema) 133 ml BID PRN CA CONSTIPATION; Start 04/12/16 at 15:00 Famotidine (Pepcid Iv) 20 mg DAILY IV ; Start 04/13/16 at 09:00 YUSUF POLLOCK NP Apr 12, 2016 16:02
[2016-04-12 16:04] LABS: MAGNESIUM 1.9 mg/dl (1.7-2.5); PHOSPHORUS 3.3 mg/dl (2.5-4.9)
[2016-04-12] MEDS: D5W-0.45 NACL + KCL 20 MEQ 1,000 ML IV SCH (16:27)
--- NOTE | 2016-04-12 17:20 | RADRPT ---
Vent Rate: 79 bpm RR Interval: 0 msec RI Interval: 136 msec QRS Duration: 86 msec QT Interval: 400 msec QTC Interval: 458 msec P-R-T [place]: 61 - 34 - 53 degrees Normal sinus rhythm Normal ECG Electronically Signed By: Yovanny Owens [id number]
[2016-04-12] MEDS: FENTAnyl 2MCG/ML-ROPIV 0.2% 100 ML BAG EPI SCH ×2 (20:49→22:07)
[2016-04-12 21:27] LABS: LYMPHOCYTES # 0.5 10^3/ul (0.8-2.9); MONOCYTE # 0.1 10^3/ul (0.3-0.9)
[2016-04-13] MEDS: HYDROmorphONE 1 MG/ML SYG IV PRN ×7 (00:11→18:34)
[2016-04-13 00:17] VITALS: BP 107/55; PULSE 93; RESP 17
[2016-04-13] MEDS: D5W-0.45 NACL + KCL 20 MEQ 1,000 ML IV SCH ×3 (02:12→20:54)
[2016-04-13] MEDS: FENTAnyl 2MCG/ML-ROPIV 0.2% 100 ML BAG EPI SCH ×3 (05:14→23:13)
[2016-04-13 05:31] LABS: ADD SCAN DIFF NO
[2016-04-13 05:50] LABS: ABNORMAL IP MESSAGE 1; HEMATOCRIT 24.8 % (42.0-52.0); HEMOGLOBIN 7.8 g/dl (14.0-18.0); LYMPHOCYTES # 0.5 10^3/ul (0.8-2.9); LYMPHOCYTES % 6.4 % (15.0-51.0); MEAN CORPUSCULAR HEMOGLOBIN 22.1 pg (29.0-33.0); MEAN CORPUSCULAR HGB CONC 31.5 g/dl (32.0-37.0); MEAN CORPUSCULAR VOLUME 70.3 fl (82.0-101.0); MEAN PLATELET VOLUME 9.1 fl (7.4-10.4); MONOCYTE # 0.4 10^3/ul (0.3-0.9); MONOCYTES % 5.2 % (0.0-11.0); PLATELET COUNT 317 10^3/UL (140-415); RED BLOOD COUNT 3.53 10^6/ul (4.70-6.10); RED CELL DISTRIBUTION WIDTH 18.2 % (11.5-14.5)
[2016-04-13 05:51] LABS: ALBUMIN 1.4 g/dl (3.3-4.9); POTASSIUM 3.7 mmol/L (3.5-5.1)
[2016-04-13 05:54] LABS: ALBUMIN/GLOBULIN RATIO 0.82; CALCIUM 6.6 mg/dl (8.4-10.2); CREATININE 0.68 mg/dl (0.61-1.24); TOTAL PROTEIN 3.1 g/dl (6.1-8.1)
[2016-04-13 06:05] LABS: POTASSIUM 3.8 mmol/L (3.5-5.1)
[2016-04-13 06:08] LABS: CREATININE 0.67 mg/dl (0.61-1.24)
[2016-04-13 06:09] LABS: CALCIUM 6.7 mg/dl (8.4-10.2); MAGNESIUM 1.8 mg/dl (1.7-2.5)
[2016-04-13 07:14] VITALS: BP 107/65; RESP 16
[2016-04-13] MEDS: FAMOTIDINE 20 MG INJ IV SCH (08:47)
[2016-04-13] MEDS: FLUCONAZOLE 100 MG TAB PO SCH (08:48)
[2016-04-13] MEDS: FERROUS SULFATE (EC) 325 MG TAB PO SCH ×3 (08:48→20:51)
--- NOTE | 2016-04-13 11:09 | CONS ---
Date/Time of Note Date/Time of Note DATE: 04/13/16 TIME: 11:09 Assessment/Plan Assessment/Plan Chief Complaint/Hosp Course ABD PAIN, vomiting, and constipation- SBO VS ILEUS post op await path RECTAL ADENOCARCINOMA- POST chemo/xrt CEA-N NONCOMPLIANT WITH SURGICAL F-UP post op SEVERE IRON DEFICIENCY WITH Microcytic, hypochromic anemia. MONITOR BLOOD COUNT CLOSELY h/h- dropping no bleeding on IV IRON PRBC PRN Distal esophagitis with gastritis. Continue proton pump inhibitors. HTN POOR COMPLIANCE Problems: Consultation Date/Type/Reason Admit Date/Time Apr 01, 2016 at 18:54 Type of Consultation: [facility] Referring Provider: LINDA WALDROP MD 24 HR Interval Summary Free Text/Dictation List of operative interventions on 04/12/16: 1. Laparoscopic exploration converted to open exploration 2. Partial colectomy with removal of upper part of rectum and sigmoid colon ( modifier 22) 3. Resection of the end of terminal ileum along with cecum with primary anastomosis 4. Performance of an colostomy using distal descending colon 5. Extensive lysis of adhesions (at least 60 minutes) 6. Intraoperative ultrasound of the liver 7. Abdominal lavage Exam/Review of Systems Vital Signs Vitals Vital Signs Date Time Temp Pulse Resp B/P Pulse Ox O2 Delivery O2 Flow Rate FiO2 04/13/16 07:14 98.8 94 16 107/65 96 04/13/16 00:17 Nasal Cannula 2.0 Intake and Output 04/12/16 04/12/16 04/13/16 15:00 23:00 07:00 Intake Total 3500 ml 150 ml 1500 ml Output Total 550 ml 470 ml 830 ml Balance 2950 ml -320 ml 670 ml Exam GENERAL: This is a thin, frail-looking male patient lying in bed in no apparent distress. HEENT: Head normocephalic and atraumatic. Eyes: Anicteric sclerae. Conjunctivae clear. ENT: Nasal septum is midline. Oral mucosa is moist. NECK: Supple. No JVD noticed. RESPIRATORY: Bilaterally clear to auscultation. No adventitious breath sounds. No use of accessory muscles of respiration. CARDIAC: Regular rate and rhythm. No murmurs heard. ABDOMEN: Left sided colostomy. Right sided MARTINEZ drain. Surgical dressings. GENITOURINARY: Coates catheter in place. EXTREMITIES: No cyanosis, no clubbing, no edema. Peripheral pulses are palpable. NEUROLOGIC: The patient is awake, alert and oriented. Cranial nerves are grossly intact. Results Result Diagram: 04/13/16 0415 04/13/16 0415 Results 24 hrs Laboratory Tests Test 04/12/16 15:00 04/12/16 15:10 04/13/16 04:15 Alanine Aminotransferase (ALT/SGPT) 28 29 Albumin 1.6 L 1.4 L Albumin/Globulin Ratio 0.84 0.82 Alkaline Phosphatase 109 86 Anion Gap 13 9 Aspartate Amino Transf (AST/SGOT) 19 20 Blood Urea Nitrogen 10 14 Calcium Level 6.9 L 6.6 L Carbon Dioxide Level 21 24 Chloride Level 104 104 Creatinine 0.60 L 0.68 Direct Bilirubin 0.00 0.00 Globulin 1.90 1.70 Glucose Level 78 119 Indirect Bilirubin 0.1 0.0 Magnesium Level 1.9 1.8 Phosphorus Level 3.3 3.0 Potassium Level 3.3 L 3.7 Sodium Level 135 133 L Total Bilirubin 0.1 L 0.0 L Total Protein 3.5 #L 3.1 L Activated Partial Thromboplast Time 32.6 Basophils # 0.0 Basophils % 0.0 Eosinophils # 0.0 Eosinophils % 0.0 Hematocrit 30.7 L 24.8 L Hemoglobin 9.5 L 7.8 L INR International Normalized Ratio 1.33 Lymphocytes # 0.5 L 0.5 L Lymphocytes % 9.0 L 6.4 L Mean Corpuscular Hemoglobin 22.4 L 22.1 L Mean Corpuscular Hemoglobin Concent 30.9 L 31.5 L Mean Corpuscular Volume 72.2 L 70.3 L Mean Platelet Volume 8.6 9.1 Monocytes # 0.1 L 0.4 Monocytes % 2.0 5.2 Neutrophils # 4.0 7.0 Neutrophils % 72.0 88.0 H Nucleated Red Blood Cells # 0.0 0.0 Nucleated Red Blood Cells % 0.0 0.0 Platelet Count 345 317 Prothrombin Time 16.6 #H Prothrombin Time Ratio 1.3 Red Blood Count 4.25 L 3.53 L Red Cell Distribution Width 17.6 H 18.2 H White Blood Count 5.6 8.0 # Medications Medications Current Medications Ondansetron HCl (Zofran Inj) 4 mg Q6H PRN IV NAUSEA AND/OR VOMITING Last administered on 04/10/16 17:27; Admin Dose 4 MG; Start 04/01/16 at 19:30 Acetaminophen (Tylenol Tab) 650 mg Q6H PRN PO PAIN LEVEL 1-3 OR FEVER Last administered on 04/03/16 19:12; Admin Dose 650 MG; Start 04/01/16 at 19:30 Docusate Sodium (Colace) 100 mg Q12H PRN PO CONSTIPATION; Start 04/01/16 at 19: 30 Magnesium Hydroxide (Milk Of Mag) 30 ml DAILY PRN PO CONSTIPATION Last administered on 04/04/16 23:30; Admin Dose 30 ML; Start 04/01/16 at 19:30 Lorazepam (Ativan) 0.5 mg Q6H PRN IV ANXIETY Last administered on 04/03/16 12: 14; Admin Dose 0.5 MG; Start 04/01/16 at 19:30 Hydralazine HCl (Apresoline) 10 mg Q6H PRN IV ELEVATED BLOOD PRESSURE; Start at 19:30 Nitroglycerin (Nitroglycerin (Sl Tab) 0.4 Mg) 1 tab Q5M PRN SL ANGINA; Start at 19:30 Fluconazole (Diflucan) 100 mg DAILY PO Last administered on 04/13/16 08:48; Admin Dose 100 MG; Start 04/03/16 at 19:30 Ferrous Sulfate (Ferrous Sulfate (Ec)) 325 mg TID PO Last administered on 08:48; Admin Dose 325 MG; Start 04/04/16 at 13:00 Diphenhydramine HCl (Benadryl) 25 mg Q4H PRN IV PRURITUS; Start 04/12/16 at 13: 00; Stop 04/13/16 at 12:59 Naloxone HCl 0.2 mg 0.2 mg Q2M PRN IV FOR RESP RATE 8 OR LESS; Start 04/12/16 at 13:00; Stop 04/13/16 at 12:59 Potassium Chloride/Dextrose/ Sod Cl (D5-1/2ns + KCl 20 Meq) 1,000 ml @ 100 mls/ hr Q10H IV Last administered on 04/13/16 02:12; Admin Dose 100 MLS/HR; Start 04/12/16 at 14:39 Acetaminophen/ Hydrocodone Bitart ([place] (5/325)) 1 tab Q4H PRN PO PAIN LEVEL 4 -7; Start 04/12/16 at 15:00 Acetaminophen/ Hydrocodone Bitart ([place] (5/325)) 2 tab Q4H PRN PO PAIN LEVEL 7 -10; Start 04/12/16 at 15:00 Hydromorphone HCl (Dilaudid) 0.5 mg Q2 PRN IV PAIN; Start 04/12/16 at 15:00 Hydromorphone HCl (Dilaudid) 1 mg Q2 PRN IV PAIN Last administered on 08:48; Admin Dose 1 MG; Start 04/12/16 at 15:00 Docusate Sodium (Colace) 100 mg BID PRN PO CONSTIPATION; Start 04/12/16 at 15: 00 Bisacodyl (Dulcolax Supp) 10 mg BID PRN [place] CONSTIPATION; Start 04/12/16 at 15: 00 Sodium Biphosphate/ Sodium Phosphate (Fleet Enema) 133 ml BID PRN [place] CONSTIPATION; Start 04/12/16 at 15:00 Famotidine (Pepcid Iv) 20 mg DAILY IV Last administered on 04/13/16 08:47; Admin Dose 20 MG; Start 04/13/16 at 09:00 JASMINA PALOMARES MD Apr 13, 2016 11:09
--- NOTE | 2016-04-13 13:28 | PN ---
Date/Time of Note Date/Time of Note DATE: 04/13/16 TIME: 13:22 Assessment/Plan Lines/Catheters IV Catheter Type (from Nrs): Peripheral IV Coates in Place (from Nrs): Yes Assessment/Plan Assessment/Plan [facility] Progress Note Date of Service: 04/13/16 Today's Impression & Plan: Overall stable and doing remarkably well given the degree of complexity of the operation. No obvious evidence of major postoperative complication or any wound problems. Ostomy appears to be viable and there is already evidence of bowel activity. Awaiting further increase in physical activity. Had a long discussion and answered all questions regarding the operative findings and decision making and expected outcomes. Drain output has been noted and if continues to be high, we will check a urine creatinine given the high risk of injury to the ureter in this clinical setting. With above assessment, I've recommended the following for today: 1. Increase activity 2. Increase incentive spirometry 3. PT OT eval 4. Check labs in a.m. 5. Ostomy care 6. Advance diet as tolerated 7. Continue epidural 8. Discontinue Coates once epidural is out 9. Discontinue antimicrobials if no other medical necessity Thank you again for your great care of this very pleasant patient and wonderful family. If there are any questions, please feel free to call me at [phone]. TOTAL VISIT TIME: 20 minutes of which more than half was spent in [id number] discussion with the patient, possibly including family, as well as coordination of care between multiple physicians and providers. Disclaimer: Inadvertent spelling or grammatical errors are likely due to EHR/ dictation software use and do not reflect on the overall quality of patient care. Updated Clinical Summary: The patient is a very pleasant 65-year-old gentleman with comorbidities including hypertension, who was initially admitted to [facility] through ED on 2015 with signs and symptoms consistent with anemia that eventually was shown to be a large, nearly obstructing mass approximately 12 cm from the anal verge up to the area of the rectosigmoid junction on colonoscopy 06/07/2015. Plan at that time was neoadjuvant treatment with chemoradiation followed by restaging and surgical resection. Patient underwent radiation therapy (Dr. Aranda) that ended September 2015 (patient's recollection was November 2015). Discussions with multiple colleagues revealed evidence that the patient had been not following instructions and there were barriers to get the patient to surgical intervention. At least part of the barriers were due to patient factors alone. Patient reported having contacted my office approximately 5 times to try and make an appointment and was told that we "do not accept" his insurance. Careful review of office records showed no documentation of patient calling. Patient also believed that he had had [employer] as his insurance carrier, but his insurance carrier was [employer] (accepted by our program). Patient re-presented to [facility] through ED with constipation, vomiting, abdominal distension and dilated loops of small intestine on 04/01/16. Significant comorbidities included not insignificant malnutrition with BMI 15.8 and dehydration, albumin of 3.6 in the setting of inability to feed enterically. Small area of liver in segment 6 and two very small areas in segment 4a of questionable significance (too small to tell) benign path vs. metastatic disease. We attempted to treat the bowel obstruction with nonoperative management with the hope that the patient would be able to increase his oral intake and improve his nutritional status prior to potentially getting systemic chemotherapy in the neoadjuvant fashion before surgical intervention. Patient very clearly showed us that his bowels were not able to tolerate any meaningful amount of nutritional intake after a few days of this management and for this reason, and after a multidisciplinary discussion, we decided to change our treatment strategy and take the patient to the operating room. List of operative interventions on 04/12/16: 1. Laparoscopic exploration converted to open exploration 2. Partial colectomy with removal of upper part of rectum and sigmoid colon ( modifier 22) 3. Resection of the end of terminal ileum along with cecum with primary anastomosis 4. Performance of an colostomy using distal descending colon 5. Extensive lysis of adhesions (at least 60 minutes) 6. Intraoperative ultrasound of the liver 7. Abdominal lavage Comorbidities: 1. Rectal malignancy, s/p chemotherapy and radiation June to Nov 2015; obstruction end of terminal ileum as well as at the level of the rectosigmoid junction with aggressive locally advanced rectal cancer; S/p an otherwise uncomplicated but challenging resection of both involved portions of rectosigmoid as well as terminal ileum in the setting of aggressive rectal cancer with local invasion of the pelvis on 04/13/16. 2. Hypertension 3. Cachexia; BMI 15.8; albumin of 3.6 in the setting of inability to feed enterically 4. Colonoscopy June 2015 5. Anxiety Subjective: No reported major events or complaints; no major abd pain and under control with medications; reports and feels ok; no major nausea; no major vomiting; no sob or cp; - flatus; + BM (small); - activity Objective: Vitals: See below Exam: GENERAL: On exam, the patient was laying in bed and appeared to be comfortable and in no acute distress. ABDOMEN: Soft, nontender and nondistended. There are no peritoneal signs or guarding. Incision dressings c/d/i w/o obvious underlying e/e/d/h. Ostomy pink, viable and productive. SKIN: Skin appears to be pink and feels warm to touch. NEUROLOGIC: Patient is awake, alert, and follows commands appropriately. Exam/Review of Systems Vital Signs Vitals Vital Signs Date Time Temp Pulse Resp B/P Pulse Ox O2 Delivery O2 Flow Rate FiO2 04/13/16 07:14 98.8 94 16 107/65 96 04/13/16 00:17 Nasal Cannula 2.0 Intake and Output 04/12/16 04/12/16 04/13/16 14:59 22:59 06:59 Intake Total 3500 ml 150 ml 1500 ml Output Total 550 ml 470 ml 830 ml Balance 2950 ml -320 ml 670 ml Results Result Diagram: 04/13/16 0415 04/13/16 0415 DIVINE BEY M.D. Apr 13, 2016 13:28
--- NOTE | 2016-04-13 14:00 | PN ---
Date/Time of Note Date/Time of Note DATE: 04/13/16 TIME: 13:59 Assessment/Plan VTE Prophylaxis VTE Prophylaxis Intervention: SCD's Lines/Catheters IV Catheter Type (from Nrs): Peripheral IV Urinary Cath still in place: Yes Reason Cath still needed: other (indicate) (Patient has epidural in place.) Assessment/Plan Chief Complaint/Hosp Course 1. Acute abdominal pain, most probably secondary to ileus. S/P resection of terminal ileum and cecum with primary anastomosis, followed by resection of sigmoid colon and performance of end colostomy on 04/12/2016. 2. Severe ulcerative esophagitis. Continue proton pump inhibitors. Continue fluconazole for any possible carmina esophagitis. 3. Gastritis. Continue proton pump inhibitors. 4. Moderately differentiated adenocarcinoma of the rectum. S/P resection of terminal ileum and cecum with primary anastomosis, followed by resection of sigmoid colon and performance of end colostomy on 04/12/2016. Continue oncology and surgical recommendations. 5. Microcytic, hypochromic anemia with underlying iron deficiency. Continue iron supplements. 6. Essential hypertension. Blood pressure fairly well controlled. Continue p.r.n. antihypertensives. 7. Fluid, electrolytes and nutrition. IVFs. Continue full liquid diet. 8. Deep venous thrombosis prophylaxis. SCDs. 9. Gastrointestinal prophylaxis. Proton pump inhibitors. 10. PLAN: Postoperative care as per surgery. Advancement diet as per surgery. Encourage frequent ambulation and use of incentive spirometry. The case was discussed with Dr. Enriquez. Problems: Subjective 24 Hr Interval Summary Free Text/Dictation Pain well controlled. Tolerating clear liquids. Exam/Review of Systems Vital Signs Vitals Vital Signs Date Time Temp Pulse Resp B/P Pulse Ox O2 Delivery O2 Flow Rate FiO2 04/13/16 07:14 98.8 94 16 107/65 96 04/13/16 00:17 Nasal Cannula 2.0 Intake and Output 04/12/16 04/12/16 04/13/16 15:00 23:00 07:00 Intake Total 3500 ml 150 ml 1500 ml Output Total 550 ml 470 ml 830 ml Balance 2950 ml -320 ml 670 ml Exam GENERAL: This is a thin, frail-looking male patient lying in bed in no apparent distress. HEENT: Head normocephalic and atraumatic. Eyes: Anicteric sclerae. Conjunctivae clear. ENT: Nasal septum is midline. Oral mucosa is moist. NECK: Supple. No JVD noticed. RESPIRATORY: Bilaterally clear to auscultation. No adventitious breath sounds. No use of accessory muscles of respiration. CARDIAC: Regular rate and rhythm. No murmurs heard. ABDOMEN: Left sided colostomy. Right sided MARTINEZ drain. Surgical dressings. GENITOURINARY: Coates catheter in place. EXTREMITIES: No cyanosis, no clubbing, no edema. Peripheral pulses are palpable. NEUROLOGIC: The patient is awake, alert and oriented. Cranial nerves are grossly intact. Results Result Diagram: 04/13/16 0415 04/13/16 0415 Results 24 hrs Laboratory Tests Test 04/12/16 15:00 04/12/16 15:10 04/13/16 04:15 Alanine Aminotransferase (ALT/SGPT) 28 29 Albumin 1.6 L 1.4 L Albumin/Globulin Ratio 0.84 0.82 Alkaline Phosphatase 109 86 Anion Gap 13 9 Aspartate Amino Transf (AST/SGOT) 19 20 Blood Urea Nitrogen 10 14 Calcium Level 6.9 L 6.6 L Carbon Dioxide Level 21 24 Chloride Level 104 104 Creatinine 0.60 L 0.68 Direct Bilirubin 0.00 0.00 Globulin 1.90 1.70 Glucose Level 78 119 Indirect Bilirubin 0.1 0.0 Magnesium Level 1.9 1.8 Phosphorus Level 3.3 3.0 Potassium Level 3.3 L 3.7 Sodium Level 135 133 L Total Bilirubin 0.1 L 0.0 L Total Protein 3.5 #L 3.1 L Activated Partial Thromboplast Time 32.6 Basophils # 0.0 Basophils % 0.0 Eosinophils # 0.0 Eosinophils % 0.0 Hematocrit 30.7 L 24.8 L Hemoglobin 9.5 L 7.8 L INR International Normalized Ratio 1.33 Lymphocytes # 0.5 L 0.5 L Lymphocytes % 9.0 L 6.4 L Mean Corpuscular Hemoglobin 22.4 L 22.1 L Mean Corpuscular Hemoglobin Concent 30.9 L 31.5 L Mean Corpuscular Volume 72.2 L 70.3 L Mean Platelet Volume 8.6 9.1 Monocytes # 0.1 L 0.4 Monocytes % 2.0 5.2 Neutrophils # 4.0 7.0 Neutrophils % 72.0 88.0 H Nucleated Red Blood Cells # 0.0 0.0 Nucleated Red Blood Cells % 0.0 0.0 Platelet Count 345 317 Prothrombin Time 16.6 #H Prothrombin Time Ratio 1.3 Red Blood Count 4.25 L 3.53 L Red Cell Distribution Width 17.6 H 18.2 H White Blood Count 5.6 8.0 # Medications Medications Current Medications Ondansetron HCl (Zofran Inj) 4 mg Q6H PRN IV NAUSEA AND/OR VOMITING Last administered on 04/10/16 17:27; Admin Dose 4 MG; Start 04/01/16 at 19:30 Acetaminophen (Tylenol Tab) 650 mg Q6H PRN PO PAIN LEVEL 1-3 OR FEVER Last administered on 04/03/16 19:12; Admin Dose 650 MG; Start 04/01/16 at 19:30 Docusate Sodium (Colace) 100 mg Q12H PRN PO CONSTIPATION; Start 04/01/16 at 19: 30 Magnesium Hydroxide (Milk Of Mag) 30 ml DAILY PRN PO CONSTIPATION Last administered on 04/04/16 23:30; Admin Dose 30 ML; Start 04/01/16 at 19:30 Lorazepam (Ativan) 0.5 mg Q6H PRN IV ANXIETY Last administered on 04/03/16 12: 14; Admin Dose 0.5 MG; Start 04/01/16 at 19:30 Hydralazine HCl (Apresoline) 10 mg Q6H PRN IV ELEVATED BLOOD PRESSURE; Start at 19:30 Nitroglycerin (Nitroglycerin (Sl Tab) 0.4 Mg) 1 tab Q5M PRN SL ANGINA; Start at 19:30 Fluconazole (Diflucan) 100 mg DAILY PO Last administered on 04/13/16 08:48; Admin Dose 100 MG; Start 04/03/16 at 19:30 Ferrous Sulfate (Ferrous Sulfate (Ec)) 325 mg TID PO Last administered on 13:45; Admin Dose 325 MG; Start 04/04/16 at 13:00 Diphenhydramine HCl (Benadryl) 25 mg Q4H PRN IV PRURITUS; Start 04/12/16 at 13: 00; Stop 04/13/16 at 12:59 Naloxone HCl 0.2 mg 0.2 mg Q2M PRN IV FOR RESP RATE 8 OR LESS; Start 04/12/16 at 13:00; Stop 04/13/16 at 12:59 Potassium Chloride/Dextrose/ Sod Cl (D5-1/2ns + KCl 20 Meq) 1,000 ml @ 100 mls/ hr Q10H IV Last administered on 04/13/16 11:47; Admin Dose 100 MLS/HR; Start 04/12/16 at 14:39 Acetaminophen/ Hydrocodone Bitart ([place] (5/325)) 1 tab Q4H PRN PO PAIN LEVEL 4 -7; Start 04/12/16 at 15:00 Acetaminophen/ Hydrocodone Bitart ([place] (5/325)) 2 tab Q4H PRN PO PAIN LEVEL 7 -10; Start 04/12/16 at 15:00 Hydromorphone HCl (Dilaudid) 0.5 mg Q2 PRN IV PAIN; Start 04/12/16 at 15:00 Hydromorphone HCl (Dilaudid) 1 mg Q2 PRN IV PAIN Last administered on 11:45; Admin Dose 1 MG; Start 04/12/16 at 15:00 Docusate Sodium (Colace) 100 mg BID PRN PO CONSTIPATION; Start 04/12/16 at 15: 00 Bisacodyl (Dulcolax Supp) 10 mg BID PRN [place] CONSTIPATION; Start 04/12/16 at 15: 00 Sodium Biphosphate/ Sodium Phosphate (Fleet Enema) 133 ml BID PRN [place] CONSTIPATION; Start 04/12/16 at 15:00 Famotidine (Pepcid Iv) 20 mg DAILY IV Last administered on 04/13/16 08:47; Admin Dose 20 MG; Start 04/13/16 at 09:00 YUSUF POLLOCK NP Apr 13, 2016 14:00
--- NOTE | 2016-04-13 14:19 | PN ---
Date/Time of Note Date/Time of Note DATE: 04/13/16 TIME: 14:17 Assessment/Plan VTE Prophylaxis VTE Prophylaxis Intervention: SCD's Lines/Catheters IV Catheter Type (from Nrsg): Peripheral IV Urinary Cath still in place: Yes Subjective 24 Hr Interval Summary Free Text/Dictation anesthesia note: A 65 males/p lap exploration, exp lap, pod# 1 on epidural. ptis doing finr. started eating. no n/v, complain of pain in RUQ. level of T12. gave a bolus of lido and epi and increase drip to 14 cc/h Exam/Review of Systems Vital Signs Vitals Vital Signs Date Time Temp Pulse Resp B/P Pulse Ox O2 Delivery O2 Flow Rate FiO2 04/13/16 07:14 98.8 94 16 107/65 96 04/13/16 00:17 Nasal Cannula 2.0 Intake and Output 04/12/16 04/12/16 04/13/16 15:00 23:00 07:00 Intake Total 3500 ml 150 ml 1500 ml Output Total 550 ml 470 ml 830 ml Balance 2950 ml -320 ml 670 ml Results Result Diagram: 04/13/16 0415 04/13/16 0415 Results 24 hrs Laboratory Tests Test 04/12/16 15:00 04/12/16 15:10 04/13/16 04:15 Alanine Aminotransferase (ALT/SGPT) 28 29 Albumin 1.6 L 1.4 L Albumin/Globulin Ratio 0.84 0.82 Alkaline Phosphatase 109 86 Anion Gap 13 9 Aspartate Amino Transf (AST/SGOT) 19 20 Blood Urea Nitrogen 10 14 Calcium Level 6.9 L 6.6 L Carbon Dioxide Level 21 24 Chloride Level 104 104 Creatinine 0.60 L 0.68 Direct Bilirubin 0.00 0.00 Globulin 1.90 1.70 Glucose Level 78 119 Indirect Bilirubin 0.1 0.0 Magnesium Level 1.9 1.8 Phosphorus Level 3.3 3.0 Potassium Level 3.3 L 3.7 Sodium Level 135 133 L Total Bilirubin 0.1 L 0.0 L Total Protein 3.5 #L 3.1 L Activated Partial Thromboplast Time 32.6 Basophils # 0.0 Basophils % 0.0 Eosinophils # 0.0 Eosinophils % 0.0 Hematocrit 30.7 L 24.8 L Hemoglobin 9.5 L 7.8 L INR International Normalized Ratio 1.33 Lymphocytes # 0.5 L 0.5 L Lymphocytes % 9.0 L 6.4 L Mean Corpuscular Hemoglobin 22.4 L 22.1 L Mean Corpuscular Hemoglobin Concent 30.9 L 31.5 L Mean Corpuscular Volume 72.2 L 70.3 L Mean Platelet Volume 8.6 9.1 Monocytes # 0.1 L 0.4 Monocytes % 2.0 5.2 Neutrophils # 4.0 7.0 Neutrophils % 72.0 88.0 H Nucleated Red Blood Cells # 0.0 0.0 Nucleated Red Blood Cells % 0.0 0.0 Platelet Count 345 317 Prothrombin Time 16.6 #H Prothrombin Time Ratio 1.3 Red Blood Count 4.25 L 3.53 L Red Cell Distribution Width 17.6 H 18.2 H White Blood Count 5.6 8.0 # Medications Medications Current Medications Ondansetron HCl (Zofran Inj) 4 mg Q6H PRN IV NAUSEA AND/OR VOMITING Last administered on 04/10/16 17:27; Admin Dose 4 MG; Start 04/01/16 at 19:30 Acetaminophen (Tylenol Tab) 650 mg Q6H PRN PO PAIN LEVEL 1-3 OR FEVER Last administered on 04/03/16 19:12; Admin Dose 650 MG; Start 04/01/16 at 19:30 Docusate Sodium (Colace) 100 mg Q12H PRN PO CONSTIPATION; Start 04/01/16 at 19: 30 Magnesium Hydroxide (Milk Of Mag) 30 ml DAILY PRN PO CONSTIPATION Last administered on 04/04/16 23:30; Admin Dose 30 ML; Start 04/01/16 at 19:30 Lorazepam (Ativan) 0.5 mg Q6H PRN IV ANXIETY Last administered on 04/03/16 12: 14; Admin Dose 0.5 MG; Start 04/01/16 at 19:30 Hydralazine HCl (Apresoline) 10 mg Q6H PRN IV ELEVATED BLOOD PRESSURE; Start at 19:30 Nitroglycerin (Nitroglycerin (Sl Tab) 0.4 Mg) 1 tab Q5M PRN SL ANGINA; Start at 19:30 Fluconazole (Diflucan) 100 mg DAILY PO Last administered on 04/13/16 08:48; Admin Dose 100 MG; Start 04/03/16 at 19:30 Ferrous Sulfate (Ferrous Sulfate (Ec)) 325 mg TID PO Last administered on 13:45; Admin Dose 325 MG; Start 04/04/16 at 13:00 Diphenhydramine HCl (Benadryl) 25 mg Q4H PRN IV PRURITUS; Start 04/12/16 at 13: 00; Stop 04/13/16 at 12:59 Naloxone HCl 0.2 mg 0.2 mg Q2M PRN IV FOR RESP RATE 8 OR LESS; Start 04/12/16 at 13:00; Stop 04/13/16 at 12:59 Potassium Chloride/Dextrose/ Sod Cl (D5-1/2ns + KCl 20 Meq) 1,000 ml @ 100 mls/ hr Q10H IV Last administered on 04/13/16 11:47; Admin Dose 100 MLS/HR; Start 04/12/16 at 14:39 Acetaminophen/ Hydrocodone Bitart ([place] (5/325)) 1 tab Q4H PRN PO PAIN LEVEL 4 -7; Start 04/12/16 at 15:00 Acetaminophen/ Hydrocodone Bitart ([place] (5/325)) 2 tab Q4H PRN PO PAIN LEVEL 7 -10; Start 04/12/16 at 15:00 Hydromorphone HCl (Dilaudid) 0.5 mg Q2 PRN IV PAIN; Start 04/12/16 at 15:00 Hydromorphone HCl (Dilaudid) 1 mg Q2 PRN IV PAIN Last administered on 11:45; Admin Dose 1 MG; Start 04/12/16 at 15:00 Docusate Sodium (Colace) 100 mg BID PRN PO CONSTIPATION; Start 04/12/16 at 15: 00 Bisacodyl (Dulcolax Supp) 10 mg BID PRN [place] CONSTIPATION; Start 04/12/16 at 15: 00 Sodium Biphosphate/ Sodium Phosphate (Fleet Enema) 133 ml BID PRN [place] CONSTIPATION; Start 04/12/16 at 15:00 Famotidine (Pepcid Iv) 20 mg DAILY IV Last administered on 04/13/16 08:47; Admin Dose 20 MG; Start 04/13/16 at 09:00 ASPEN PAUL MD Apr 13, 2016 14:19
[2016-04-13 19:24] VITALS: BP 155/70; RESP 17
[2016-04-13] MEDS: LORAZEPAM 2 MG INJ IV PRN (20:28)
[2016-04-14] MEDS: HYDROmorphONE 1 MG/ML SYG IV PRN ×3 (05:16→22:48)
[2016-04-14 05:25] LABS: MAGNESIUM 1.9 mg/dl (1.7-2.5); PHOSPHORUS 2.3 mg/dl (2.5-4.9)
[2016-04-14 05:26] LABS: POTASSIUM 4.4 mmol/L (3.5-5.1)
[2016-04-14 05:29] LABS: CREATININE 0.6 mg/dl (0.61-1.24)
[2016-04-14 06:01] LABS: CONDITION 1; EOSINOPHILS % 0.2 % (0.0-7.0); HEMATOCRIT 24.5 % (42.0-52.0); LH ANALYZER COMMENTS 1; LYMPHOCYTES # 0.6 10^3/ul (0.8-2.9); LYMPHOCYTES % 8.7 % (15.0-51.0); MEAN CORPUSCULAR HEMOGLOBIN 23.1 pg (29.0-33.0); MEAN CORPUSCULAR HGB CONC 32.6 g/dl (32.0-37.0); MEAN CORPUSCULAR VOLUME 70.7 fl (82.0-101.0); MEAN PLATELET VOLUME 7.3 fl (7.4-10.4); MONOCYTE # 0.5 10^3/ul (0.3-0.9); MONOCYTES % 7.3 % (0.0-11.0); NEUTROPHIL # 6.3 10^3/ul (1.6-7.5); NEUTROPHILS % 83.8 % (39.0-77.0); PLATELET COUNT 374 10^3/UL (140-440); RED BLOOD COUNT 3.46 10^6/ul (4.70-6.10); RED CELL DISTRIBUTION WIDTH 17.1 % (11.5-14.5); UNCORRECTED WBC 7.5 10^3/ul (4.8-10.8); WHITE BLOOD COUNT 7.5 10^3/ul (4.8-10.8)
[2016-04-14] MEDS: D5W-0.45 NACL + KCL 20 MEQ 1,000 ML IV SCH (06:15)
[2016-04-14] MEDS: FENTAnyl 2MCG/ML-ROPIV 0.2% 100 ML BAG EPI SCH ×3 (06:16→21:09)
[2016-04-14 07:16] VITALS: BP 150/87; RESP 16
[2016-04-14] MEDS ORDERED: SODIUM PHOSPHATE 20 MEQ in SOD CHLORIDE 0.9% 250 ML IVPB ONE (08:30)
[2016-04-14] MEDS ORDERED: FUROSEMIDE 20 MG INJ IV ONE (08:30)
--- NOTE | 2016-04-14 08:31 | PN ---
Date/Time of Note Date/Time of Note DATE: 04/14/16 TIME: 08:26 Assessment/Plan VTE Prophylaxis VTE Prophylaxis Intervention: SCD's Lines/Catheters IV Catheter Type (from Nrs): Saline Lock Urinary Cath still in place: Yes Reason Cath still needed: other (indicate) (S/P surgery) Assessment/Plan Chief Complaint/Hosp Course 1. Acute abdominal pain, most probably secondary to ileus. S/P resection of terminal ileum and cecum with primary anastomosis, followed by resection of sigmoid colon and performance of end colostomy on 04/12/2016. 2. Severe ulcerative esophagitis. Continue proton pump inhibitors. Continue fluconazole for any possible carmina esophagitis. 3. Gastritis. Continue proton pump inhibitors. 4. Moderately differentiated adenocarcinoma of the rectum. S/P resection of terminal ileum and cecum with primary anastomosis, followed by resection of sigmoid colon and performance of end colostomy on 04/12/2016. Continue oncology and surgical recommendations. 5. Microcytic, hypochromic anemia with underlying iron deficiency. Continue iron supplements. 6. Essential hypertension. Blood pressure fairly well controlled. Continue p.r.n. antihypertensives. 7. Protein calorie malnutrition. Moderate. Obtain a dietary consult. 8. Fluid, electrolytes and nutrition. IVFs. Continue full liquid diet. 9. Deep venous thrombosis prophylaxis. SCDs. 10. Gastrointestinal prophylaxis. Proton pump inhibitors. 11. PLAN: Postoperative care as per surgery. Advancement diet as per surgery. Encourage frequent ambulation (after epidural removal) and use of incentive spirometry. Elevate scrotum because of penoscrotal edema. Give spot diuretics because of B/L LE edema. The case was discussed with Dr. Enriquez. Problems: Subjective 24 Hr Interval Summary Free Text/Dictation Pain well controlled. No nausea or vomiting. Exam/Review of Systems Vital Signs Vitals Vital Signs Date Time Temp Pulse Resp B/P Pulse Ox O2 Delivery O2 Flow Rate FiO2 04/14/16 07:16 98.5 95 16 150/87 100 04/13/16 00:17 Nasal Cannula 2.0 Intake and Output 04/13/16 04/13/16 04/14/16 15:00 23:00 07:00 Intake Total 1000 ml 1150 ml 1900 ml Output Total 800 ml 500 ml 1725 ml Balance 200 ml 650 ml 175 ml Exam GENERAL: This is a thin, frail-looking male patient lying in bed in no apparent distress. HEENT: Head normocephalic and atraumatic. Eyes: Anicteric sclerae. Conjunctivae clear. ENT: Nasal septum is midline. Oral mucosa is moist. NECK: Supple. No JVD noticed. RESPIRATORY: Bilaterally clear to auscultation. No adventitious breath sounds. No use of accessory muscles of respiration. CARDIAC: Regular rate and rhythm. No murmurs heard. ABDOMEN: Left sided colostomy. Right sided MARTINEZ drain. Surgical dressings. GENITOURINARY: Coates catheter in place. Penoscrotal edema.. EXTREMITIES: No cyanosis, no clubbing. B/L LE 2+ edema. Peripheral pulses are palpable. NEUROLOGIC: The patient is awake, alert and oriented. Cranial nerves are grossly intact. Results Result Diagram: 04/14/1643404/14/16434 Results 24 hrs Laboratory Tests Test 04/14/16 04:35 Anion Gap 7 L Basophils # 0.0 Basophils % 0.0 Blood Morphology Comment Blood Urea Nitrogen 11 Calcium Level 7.0 L Carbon Dioxide Level 26 Chloride Level 102 Creatinine 0.60 L Eosinophils # 0.0 Eosinophils % 0.2 Glucose Level 77 # Hematocrit 24.5 L Hemoglobin 8.0 L Lymphocytes # 0.6 L Lymphocytes % 8.7 L Magnesium Level 1.9 Mean Corpuscular Hemoglobin 23.1 L Mean Corpuscular Hemoglobin Concent 32.6 Mean Corpuscular Volume 70.7 L Mean Platelet Volume 7.3 L Monocytes # 0.5 Monocytes % 7.3 Neutrophils # 6.3 Neutrophils % 83.8 H Nucleated Red Blood Cells # 0.0 Nucleated Red Blood Cells % 0.0 Phosphorus Level 2.3 L Platelet Count 374 Potassium Level 4.4 Red Blood Count 3.46 L Red Cell Distribution Width 17.1 H Sodium Level 131 L White Blood Count 7.5 Medications Medications Current Medications Ondansetron HCl (Zofran Inj) 4 mg Q6H PRN IV NAUSEA AND/OR VOMITING Last administered on 04/10/16 17:27; Admin Dose 4 MG; Start 04/01/16 at 19:30 Acetaminophen (Tylenol Tab) 650 mg Q6H PRN PO PAIN LEVEL 1-3 OR FEVER Last administered on 04/03/16 19:12; Admin Dose 650 MG; Start 04/01/16 at 19:30 Docusate Sodium (Colace) 100 mg Q12H PRN PO CONSTIPATION Last administered on 05:16; Admin Dose 100 MG; Start 04/01/16 at 19:30 Magnesium Hydroxide (Milk Of Mag) 30 ml DAILY PRN PO CONSTIPATION Last administered on 04/04/16 23:30; Admin Dose 30 ML; Start 04/01/16 at 19:30 Lorazepam (Ativan) 0.5 mg Q6H PRN IV ANXIETY Last administered on 04/13/16 20: 28; Admin Dose 0.5 MG; Start 04/01/16 at 19:30 Hydralazine HCl (Apresoline) 10 mg Q6H PRN IV ELEVATED BLOOD PRESSURE; Start at 19:30 Nitroglycerin (Nitroglycerin (Sl Tab) 0.4 Mg) 1 tab Q5M PRN SL ANGINA; Start at 19:30 Fluconazole (Diflucan) 100 mg DAILY PO Last administered on 04/13/16 08:48; Admin Dose 100 MG; Start 04/03/16 at 19:30 Ferrous Sulfate (Ferrous Sulfate (Ec)) 325 mg TID PO Last administered on 20:51; Admin Dose 325 MG; Start 04/04/16 at 13:00 Diphenhydramine HCl (Benadryl) 25 mg Q4H PRN IV PRURITUS; Start 04/12/16 at 13: 00; Stop 04/13/16 at 12:59 Naloxone HCl 0.2 mg 0.2 mg Q2M PRN IV FOR RESP RATE 8 OR LESS; Start 04/12/16 at 13:00; Stop 04/13/16 at 12:59 Potassium Chloride/Dextrose/ Sod Cl (D5-1/2ns + KCl 20 Meq) 1,000 ml @ 100 mls/ hr Q10H IV Last administered on 04/14/16 06:15; Admin Dose 100 MLS/HR; Start 04/12/16 at 14:39 Acetaminophen/ Hydrocodone Bitart ([place] (5/325)) 1 tab Q4H PRN PO PAIN LEVEL 4 -7; Start 04/12/16 at 15:00 Acetaminophen/ Hydrocodone Bitart ([place] (5/325)) 2 tab Q4H PRN PO PAIN LEVEL 7 -10; Start 2/10/17 at 15:00 Hydromorphone HCl (Dilaudid) 0.5 mg Q2 PRN IV PAIN; Start 04/12/16 at 15:00 Hydromorphone HCl (Dilaudid) 1 mg Q2 PRN IV PAIN Last administered on 05:16; Admin Dose 1 MG; Start 04/12/16 at 15:00 Docusate Sodium (Colace) 100 mg BID PRN PO CONSTIPATION; Start 04/12/16 at 15: 00 Bisacodyl (Dulcolax Supp) 10 mg BID PRN [place] CONSTIPATION; Start 04/12/16 at 15: 00 Sodium Biphosphate/ Sodium Phosphate (Fleet Enema) 133 ml BID PRN [place] CONSTIPATION; Start 04/12/16 at 15:00 Famotidine (Pepcid Iv) 20 mg DAILY IV Last administered on 04/13/16 08:47; Admin Dose 20 MG; Start 04/13/16 at 09:00 YUSUF POLLOCK NP Apr 14, 2016 08:31
[2016-04-14] MEDS: FAMOTIDINE 20 MG INJ IV SCH (09:11)
[2016-04-14] MEDS: FLUCONAZOLE 100 MG TAB PO SCH (09:11)
[2016-04-14] MEDS: FERROUS SULFATE (EC) 325 MG TAB PO SCH ×3 (09:11→22:17)
[2016-04-14] MEDS: HYDROCODONE/APAP (5/325) TAB PO PRN (12:47)
[2016-04-14] MEDS: KETOROLAC 30 MG INJ IV SCH ×2 (13:00→17:56)
--- NOTE | 2016-04-14 13:02 | PN ---
Date/Time of Note Date/Time of Note DATE: 04/14/16 TIME: 13:00 Assessment/Plan Lines/Catheters IV Catheter Type (from Nrs): Peripheral IV Coates in Place (from Nrs): Yes Assessment/Plan Assessment/Plan [facility] Progress Note Date of Service: 04/14/16 Today's Impression & Plan: Overall stable and doing remarkably well given the degree of complexity of the operation. No obvious evidence of major postoperative complication or any wound problems. Ostomy appears to be viable and + bowel activity. Awaiting further increase in physical activity. Drain output less today and does not appear to be urine. Fluid Cr sent and pending. Urine in bag dowling yellow without any hind of red. With above assessment, I've recommended the following for today: 1. Increase activity 2. Increase incentive spirometry 3. PT OT eval 4. Check BNP in a.m. 5. Ostomy care 6. Reg diet 7. Wean off epidural 8. Discontinue Coates once epidural is out 9. Discontinue antimicrobials 10. D/c planning Thank you again for your great care of this very pleasant patient and wonderful family. If there are any questions, please feel free to call me at [phone]. TOTAL VISIT TIME: 20 minutes of which more than half was spent in [id number] discussion with the patient, possibly including family, as well as coordination of care between multiple physicians and providers. Disclaimer: Inadvertent spelling or grammatical errors are likely due to EHR/ dictation software use and do not reflect on the overall quality of patient care. Updated Clinical Summary: The patient is a very pleasant 65-year-old gentleman with comorbidities including hypertension, who was initially admitted to [facility] through ED on 2015 with signs and symptoms consistent with anemia that eventually was shown to be a large, nearly obstructing mass approximately 12 cm from the anal verge up to the area of the rectosigmoid junction on colonoscopy 06/07/2015. Plan at that time was neoadjuvant treatment with chemoradiation followed by restaging and surgical resection. Patient underwent radiation therapy (Dr. Aranda) that ended September 2015 (patient's recollection was November 2015). Discussions with multiple colleagues revealed evidence that the patient had been not following instructions and there were barriers to get the patient to surgical intervention. At least part of the barriers were due to patient factors alone. Patient reported having contacted my office approximately 5 times to try and make an appointment and was told that we "do not accept" his insurance. Careful review of office records showed no documentation of patient calling. Patient also believed that he had had [employer] as his insurance carrier, but his insurance carrier was [employer] (accepted by our program). Patient re-presented to [facility] through ED with constipation, vomiting, abdominal distension and dilated loops of small intestine on 04/01/16. Significant comorbidities included not insignificant malnutrition with BMI 15.8 and dehydration, albumin of 3.6 in the setting of inability to feed enterically. Small area of liver in segment 6 and two very small areas in segment 4a of questionable significance (too small to tell) benign path vs. metastatic disease. We attempted to treat the bowel obstruction with nonoperative management with the hope that the patient would be able to increase his oral intake and improve his nutritional status prior to potentially getting systemic chemotherapy in the neoadjuvant fashion before surgical intervention. Patient very clearly showed us that his bowels were not able to tolerate any meaningful amount of nutritional intake after a few days of this management and for this reason, and after a multidisciplinary discussion, we decided to change our treatment strategy and take the patient to the operating room. List of operative interventions on 04/12/16: 1. Laparoscopic exploration converted to open exploration 2. Partial colectomy with removal of upper part of rectum and sigmoid colon ( modifier 22) 3. Resection of the end of terminal ileum along with cecum with primary anastomosis 4. Performance of an colostomy using distal descending colon 5. Extensive lysis of adhesions (at least 60 minutes) 6. Intraoperative ultrasound of the liver 7. Abdominal lavage Comorbidities: 1. Rectal malignancy, s/p chemotherapy and radiation June to Nov 2015; obstruction end of terminal ileum as well as at the level of the rectosigmoid junction with aggressive locally advanced rectal cancer; S/p an otherwise uncomplicated but challenging resection of both involved portions of rectosigmoid as well as terminal ileum in the setting of aggressive rectal cancer with local invasion of the pelvis on 04/13/16. 2. Hypertension 3. Cachexia; BMI 15.8; albumin of 3.6 in the setting of inability to feed enterically 4. Colonoscopy June 2015 5. Anxiety Subjective: No reported major events or complaints; no major abd pain and under control with medications; reports and feels ok; no nausea; no vomiting; no sob or cp; + flatus; + BM; - activity Objective: Vitals: See below Exam: GENERAL: On exam, the patient was laying in bed and appeared to be comfortable and in no acute distress. ABDOMEN: Soft, nontender and nondistended. There are no peritoneal signs or guarding. Incision dressings c/d/i w/o obvious underlying e/e/d/h. Ostomy pink, viable and productive. SKIN: Skin appears to be pink and feels warm to touch. NEUROLOGIC: Patient is awake, alert, and follows commands appropriately. Exam/Review of Systems Vital Signs Vitals Vital Signs Date Time Temp Pulse Resp B/P Pulse Ox O2 Delivery O2 Flow Rate FiO2 04/14/16 07:16 98.5 95 16 150/87 100 04/13/16 00:17 Nasal Cannula 2.0 Intake and Output 04/13/16 04/13/16 04/14/16 15:00 23:00 07:00 Intake Total 1000 ml 1150 ml 1900 ml Output Total 800 ml 500 ml 1725 ml Balance 200 ml 650 ml 175 ml Results Result Diagram: 04/14/16 0435 04/14/16 0435 DIVINE BEY M.D. Apr 14, 2016 13:02
--- NOTE | 2016-04-14 17:34 | PN ---
Date/Time of Note Date/Time of Note DATE: 04/14/16 TIME: 17:30 Assessment/Plan VTE Prophylaxis VTE Prophylaxis Intervention: SCD's Lines/Catheters IV Catheter Type (from Nrsg): Peripheral IV Urinary Cath still in place: Yes Subjective 24 Hr Interval Summary Free Text/Dictation anesthesia notr: A 65 y male s/p lap exploration, exp lap POD#2 on epidural. doing well, yesterday after bolous and increasing dise pt had difficulty with numbness, rather to have feel some pain than being totally numb. Exam/Review of Systems Vital Signs Vitals Vital Signs Date Time Temp Pulse Resp B/P Pulse Ox O2 Delivery O2 Flow Rate FiO2 04/14/16 07:16 98.5 95 16 150/87 100 04/13/16 00:17 Nasal Cannula 2.0 Intake and Output 04/13/16 04/13/16 04/14/16 15:00 23:00 07:00 Intake Total 1000 ml 1150 ml 1900 ml Output Total 800 ml 500 ml 1725 ml Balance 200 ml 650 ml 175 ml Results Result Diagram: 04/14/16 0435 04/14/16 0435 Results 24 hrs Laboratory Tests Test 04/14/16 04:35 Anion Gap 7 L Basophils # 0.0 Basophils % 0.0 Blood Morphology Comment Blood Urea Nitrogen 11 Calcium Level 7.0 L Carbon Dioxide Level 26 Chloride Level 102 Creatinine 0.60 L Eosinophils # 0.0 Eosinophils % 0.2 Glucose Level 77 # Hematocrit 24.5 L Hemoglobin 8.0 L Lymphocytes # 0.6 L Lymphocytes % 8.7 L Magnesium Level 1.9 Mean Corpuscular Hemoglobin 23.1 L Mean Corpuscular Hemoglobin Concent 32.6 Mean Corpuscular Volume 70.7 L Mean Platelet Volume 7.3 L Monocytes # 0.5 Monocytes % 7.3 Neutrophils # 6.3 Neutrophils % 83.8 H Nucleated Red Blood Cells # 0.0 Nucleated Red Blood Cells % 0.0 Phosphorus Level 2.3 L Platelet Count 374 Potassium Level 4.4 Red Blood Count 3.46 L Red Cell Distribution Width 17.1 H Sodium Level 131 L White Blood Count 7.5 Medications Medications Current Medications Ondansetron HCl (Zofran Inj) 4 mg Q6H PRN IV NAUSEA AND/OR VOMITING Last administered on 04/10/16t 17:27; Admin Dose 4 MG; Start 04/01/16 at 19:30 Acetaminophen (Tylenol Tab) 650 mg Q6H PRN PO PAIN LEVEL 1-3 OR FEVER Last administered on 04/03/16 19:12; Admin Dose 650 MG; Start 04/01/16 at 19:30 Magnesium Hydroxide (Milk Of Mag) 30 ml DAILY PRN PO CONSTIPATION Last administered on 04/04/16 23:30; Admin Dose 30 ML; Start 04/01/16 at 19:30 Lorazepam (Ativan) 0.5 mg Q6H PRN IV ANXIETY Last administered on 04/13/16 20: 28; Admin Dose 0.5 MG; Start 04/01/16 at 19:30 Hydralazine HCl (Apresoline) 10 mg Q6H PRN IV ELEVATED BLOOD PRESSURE; Start at 19:30 Nitroglycerin (Nitroglycerin (Sl Tab) 0.4 Mg) 1 tab Q5M PRN SL ANGINA; Start at 19:30 Ferrous Sulfate (Ferrous Sulfate (Ec)) 325 mg TID PO Last administered on 12:16; Admin Dose 325 MG; Start 04/04/16 at 13:00 Acetaminophen/ Hydrocodone Bitart ([place] (5/325)) 1 tab Q4H PRN PO PAIN LEVEL 4 -7; Start 04/12/16 at 15:00 Acetaminophen/ Hydrocodone Bitart ([place] (5/325)) 2 tab Q4H PRN PO PAIN LEVEL 7 -10 Last administered on 04/14/16 12:47; Admin Dose 2 TAB; Start 04/12/16 at 15 :00 Hydromorphone HCl (Dilaudid) 0.5 mg Q2 PRN IV PAIN; Start 04/12/16 at 15:00 Hydromorphone HCl (Dilaudid) 1 mg Q2 PRN IV PAIN Last administered on 10:43; Admin Dose 1 MG; Start 04/12/16 at 15:00 Docusate Sodium (Colace) 100 mg BID PRN PO CONSTIPATION; Start 04/12/16 at 15: 00 Bisacodyl (Dulcolax Supp) 10 mg BID PRN [place] CONSTIPATION; Start 04/12/16 at 15: 00 Ketorolac Tromethamine (Toradol) 30 mg Q6H IV ; Start 04/14/16 at 13:00; Stop at 07:01 Furosemide (Lasix) 20 mg Q6 IV ; Start 04/14/16 at 18:00; Stop 04/15/16 at 12:01 Famotidine (Pepcid) 40 mg HS PO ; Start 04/14/16 at 21:00 ASPEN PAUL MD Apr 14, 2016 17:34
[2016-04-14] MEDS: FUROSEMIDE 20 MG INJ IV SCH (17:56)
--- NOTE | 2016-04-14 18:41 | CONS ---
Date/Time of Note Date/Time of Note DATE: 04/14/16 TIME: 18:41 Assessment/Plan Assessment/Plan Chief Complaint/Hosp Course ABD PAIN, vomiting, and constipation- SBO VS ILEUS post op RECTAL ADENOCARCINOMA- POST chemo/xrt CEA-N NONCOMPLIANT WITH SURGICAL F-UP await path SEVERE IRON DEFICIENCY WITH Microcytic, hypochromic anemia. MONITOR BLOOD COUNT CLOSELY h/h- dropping no bleeding on IV IRON PRBC PRN Distal esophagitis with gastritis. Continue proton pump inhibitors. HTN POOR COMPLIANCE Problems: Consultation Date/Type/Reason Admit Date/Time Apr 01, 2016 at 18:54 [facility] Referring Provider: LINDA WALDROP MD 24 HR Interval Summary Free Text/Dictation doing well pain controlled Exam/Review of Systems Vital Signs Vitals Vital Signs Date Time Temp Pulse Resp B/P Pulse Ox O2 Delivery O2 Flow Rate FiO2 04/14/16 07:16 98.5 95 16 150/87 100 04/13/16 00:17 Nasal Cannula 2.0 Intake and Output 04/13/16 04/13/16 04/14/16 15:00 23:00 07:00 Intake Total 1000 ml 1150 ml 1900 ml Output Total 800 ml 500 ml 1725 ml Balance 200 ml 650 ml 175 ml Exam GENERAL: This is a thin, frail-looking male patient lying in bed in no apparent distress. HEENT: Head normocephalic and atraumatic. Eyes: Anicteric sclerae. Conjunctivae clear. ENT: Nasal septum is midline. Oral mucosa is moist. NECK: Supple. No JVD noticed. RESPIRATORY: Bilaterally clear to auscultation. No adventitious breath sounds. No use of accessory muscles of respiration. CARDIAC: Regular rate and rhythm. No murmurs heard. ABDOMEN: Left sided colostomy. Right sided MARTINEZ drain. Surgical dressings. GENITOURINARY: Coates catheter in place. EXTREMITIES: No cyanosis, no clubbing, no edema. Peripheral pulses are palpable. NEUROLOGIC: The patient is awake, alert and oriented. Cranial nerves are grossly intact. Results Result Diagram: 04/14/16 0435 04/14/16 0435 Results 24 hrs Laboratory Tests Test 04/14/16 04:35 Anion Gap 7 L Basophils # 0.0 Basophils % 0.0 Blood Morphology Comment Blood Urea Nitrogen 11 Calcium Level 7.0 L Carbon Dioxide Level 26 Chloride Level 102 Creatinine 0.60 L Eosinophils # 0.0 Eosinophils % 0.2 Glucose Level 77 # Hematocrit 24.5 L Hemoglobin 8.0 L Lymphocytes # 0.6 L Lymphocytes % 8.7 L Magnesium Level 1.9 Mean Corpuscular Hemoglobin 23.1 L Mean Corpuscular Hemoglobin Concent 32.6 Mean Corpuscular Volume 70.7 L Mean Platelet Volume 7.3 L Monocytes # 0.5 Monocytes % 7.3 Neutrophils # 6.3 Neutrophils % 83.8 H Nucleated Red Blood Cells # 0.0 Nucleated Red Blood Cells % 0.0 Phosphorus Level 2.3 L Platelet Count 374 Potassium Level 4.4 Red Blood Count 3.46 L Red Cell Distribution Width 17.1 H Sodium Level 131 L White Blood Count 7.5 Medications Medications Current Medications Ondansetron HCl (Zofran Inj) 4 mg Q6H PRN IV NAUSEA AND/OR VOMITING Last administered on 04/10/16 17:27; Admin Dose 4 MG; Start 04/01/16 at 19:30 Acetaminophen (Tylenol Tab) 650 mg Q6H PRN PO PAIN LEVEL 1-3 OR FEVER Last administered on 04/03/16 19:12; Admin Dose 650 MG; Start 04/01/16 at 19:30 Magnesium Hydroxide (Milk Of Mag) 30 ml DAILY PRN PO CONSTIPATION Last administered on 04/04/16 23:30; Admin Dose 30 ML; Start 04/01/16 at 19:30 Lorazepam (Ativan) 0.5 mg Q6H PRN IV ANXIETY Last administered on 04/13/16 20: 28; Admin Dose 0.5 MG; Start 04/01/16 at 19:30 Hydralazine HCl (Apresoline) 10 mg Q6H PRN IV ELEVATED BLOOD PRESSURE; Start at 19:30 Nitroglycerin (Nitroglycerin (Sl Tab) 0.4 Mg) 1 tab Q5M PRN SL ANGINA; Start at 19:30 Ferrous Sulfate (Ferrous Sulfate (Ec)) 325 mg TID PO Last administered on 12:16; Admin Dose 325 MG; Start 04/04/16 at 13:00 Acetaminophen/ Hydrocodone Bitart ([place] (5/325)) 1 tab Q4H PRN PO PAIN LEVEL 4 -7; Start 04/12/16 at 15:00 Acetaminophen/ Hydrocodone Bitart ([place] (5/325)) 2 tab Q4H PRN PO PAIN LEVEL 7 -10 Last administered on 04/14/16 12:47; Admin Dose 2 TAB; Start 04/12/16 at 15 :00 Hydromorphone HCl (Dilaudid) 0.5 mg Q2 PRN IV PAIN; Start 04/12/16 at 15:00 Hydromorphone HCl (Dilaudid) 1 mg Q2 PRN IV PAIN Last administered on 10:43; Admin Dose 1 MG; Start 04/12/16 at 15:00 Docusate Sodium (Colace) 100 mg BID PRN PO CONSTIPATION; Start 04/12/16 at 15: 00 Bisacodyl (Dulcolax Supp) 10 mg BID PRN [place] CONSTIPATION; Start 04/12/16 at 15: 00 Ketorolac Tromethamine (Toradol) 30 mg Q6H IV Last administered on 04/14/16 17 :56; Admin Dose 30 MG; Start 04/14/16 at 13:00; Stop 04/15/16 at 07:01 Furosemide (Lasix) 20 mg Q6 IV Last administered on 04/14/16 17:56; Admin Dose 20 MG; Start 04/14/16 at 18:00; Stop 04/15/16 at 12:01 Famotidine (Pepcid) 40 mg HS PO ; Start 04/14/16 at 21:00 JASMINA PALOMARES MD Apr 14, 2016 18:41
[2016-04-14 19:21] VITALS: BP 127/62; RESP 18
[2016-04-14] MEDS: FAMOTIDINE 20 MG TAB PO SCH (22:17)
[2016-04-15 00:10] VITALS: BP 137/66; PULSE 82; RESP 18
[2016-04-15] MEDS: FUROSEMIDE 20 MG INJ IV SCH ×3 (00:47→12:26)
[2016-04-15] MEDS: KETOROLAC 30 MG INJ IV SCH ×5 (00:48→21:58)
[2016-04-15] MEDS: FENTAnyl 2MCG/ML-ROPIV 0.2% 100 ML BAG EPI SCH ×3 (04:13→23:45)
[2016-04-15 04:25] VITALS: BP 139/67; PULSE 70; RESP 16
[2016-04-15] MEDS: HYDROmorphONE 1 MG/ML SYG IV PRN ×2 (04:29→21:45)
[2016-04-15 05:20] LABS: POTASSIUM 3.8 mmol/L (3.5-5.1)
[2016-04-15 05:22] LABS: CREATININE 0.61 mg/dl (0.61-1.24)
[2016-04-15 05:23] LABS: CALCIUM 6.9 mg/dl (8.4-10.2)
[2016-04-15] MEDS: LORAZEPAM 2 MG INJ IV PRN (05:33)
[2016-04-15 07:45] VITALS: BP 141/63; RESP 18
[2016-04-15] MEDS: FERROUS SULFATE (EC) 325 MG TAB PO SCH ×3 (08:45→21:44)
--- NOTE | 2016-04-15 09:56 | PN ---
Date/Time of Note Date/Time of Note DATE: 04/15/16 TIME: 09:53 Assessment/Plan Lines/Catheters IV Catheter Type (from Nrsg): Saline Lock Coates in Place (from Nrsg): Yes Assessment/Plan Assessment/Plan [facility] Progress Note Date of Service: 04/15/16 Today's Impression & Plan: Overall stable and doing remarkably well given the degree of complexity of the operation. No obvious evidence of major postoperative complication or any wound problems. Ostomy appears to be viable and + bowel activity. Awaiting further increase in physical activity. Drain fluid Cr still pending. Urine in bag dowling yellow without any hind of red. Patient exhibiting signs of situational depression and anxiety. I believe this is appropriate given the clinical picture. Would benefit from optimization of antidepressants and anxiolytics. With above assessment, I've recommended the following for today: 1. Increase activity 2. Increase incentive spirometry 3. Cont. PT OT eval 4. Awaiting BNP to gauge need for diuretics 5. Ostomy care 6. Reg diet 7. Wean off epidural 8. Discontinue Coates once epidural is out 9. D/c planning Thank you again for your great care of this very pleasant patient and wonderful family. If there are any questions, please feel free to call me at [phone]. TOTAL VISIT TIME: 20 minutes of which more than half was spent in [id number] discussion with the patient, possibly including family, as well as coordination of care between multiple physicians and providers. Disclaimer: Inadvertent spelling or grammatical errors are likely due to EHR/ dictation software use and do not reflect on the overall quality of patient care. Updated Clinical Summary: The patient is a very pleasant 65-year-old gentleman with comorbidities including hypertension, who was initially admitted to [facility] through ED on 2015 with signs and symptoms consistent with anemia that eventually was shown to be a large, nearly obstructing mass approximately 12 cm from the anal verge up to the area of the rectosigmoid junction on colonoscopy 06/07/2015. Plan at that time was neoadjuvant treatment with chemoradiation followed by restaging and surgical resection. Patient underwent radiation therapy (Dr. Aranda) that ended September 2015 (patient's recollection was November 2015). Discussions with multiple colleagues revealed evidence that the patient had been not following instructions and there were barriers to get the patient to surgical intervention. At least part of the barriers were due to patient factors alone. Patient reported having contacted my office approximately 5 times to try and make an appointment and was told that we "do not accept" his insurance. Careful review of office records showed no documentation of patient calling. Patient also believed that he had had [employer] as his insurance carrier, but his insurance carrier was [employer] (accepted by our program). Patient re-presented to [facility] through ED with constipation, vomiting, abdominal distension and dilated loops of small intestine on 04/01/16. Significant comorbidities included not insignificant malnutrition with BMI 15.8 and dehydration, albumin of 3.6 in the setting of inability to feed enterically. Small area of liver in segment 6 and two very small areas in segment 4a of questionable significance (too small to tell) benign path vs. metastatic disease. We attempted to treat the bowel obstruction with nonoperative management with the hope that the patient would be able to increase his oral intake and improve his nutritional status prior to potentially getting systemic chemotherapy in the neoadjuvant fashion before surgical intervention. Patient very clearly showed us that his bowels were not able to tolerate any meaningful amount of nutritional intake after a few days of this management and for this reason, and after a multidisciplinary discussion, we decided to change our treatment strategy and take the patient to the operating room. List of operative interventions on 04/12/16: 1. Laparoscopic exploration converted to open exploration 2. Partial colectomy with removal of upper part of rectum and sigmoid colon ( modifier 22) 3. Resection of the end of terminal ileum along with cecum with primary anastomosis 4. Performance of an colostomy using distal descending colon 5. Extensive lysis of adhesions (at least 60 minutes) 6. Intraoperative ultrasound of the liver 7. Abdominal lavage Comorbidities: 1. Rectal malignancy, s/p chemotherapy and radiation June to Nov 2015; obstruction end of terminal ileum as well as at the level of the rectosigmoid junction with aggressive locally advanced rectal cancer; S/p an otherwise uncomplicated but challenging resection of both involved portions of rectosigmoid as well as terminal ileum in the setting of aggressive rectal cancer with local invasion of the pelvis on 04/13/16. 2. Hypertension 3. Cachexia; BMI 15.8; albumin of 3.6 in the setting of inability to feed enterically 4. Colonoscopy June 2015 5. Anxiety Subjective: No reported major events or complaints; no major abd pain and under control with medications; reports and feels ok but anxious and depressed about his situation; no nausea; no vomiting; no sob or cp; + flatus; + BM; - activity Objective: Vitals: See below Exam: GENERAL: On exam, the patient was laying in bed and appeared to be comfortable and in no acute distress. ABDOMEN: Soft, nontender and nondistended. There are no peritoneal signs or guarding. Incision dressings c/d/i w/o obvious underlying e/e/d/h. Ostomy pink, viable and productive. Minor leakage around the ostomy. SKIN: Skin appears to be pink and feels warm to touch. NEUROLOGIC: Patient is awake, alert, and follows commands appropriately. Exam/Review of Systems Vital Signs Vitals Vital Signs Date Time Temp Pulse Resp B/P Pulse Ox O2 Delivery O2 Flow Rate FiO2 04/15/16 07:45 98.7 78 18 141/63 97 04/15/16 04:25 Room Air 04/13/16 00:17 2.0 Intake and Output 04/14/16 04/14/16 04/15/16 15:00 23:00 07:00 Intake Total 1255 ml 700 ml 720 ml Output Total 120 ml 2290 ml 3130 ml Balance 1135 ml -1590 ml -2410 ml Results Result Diagram: 04/14/16 0435 04/15/16 0405 DIVINE BEY M.D. Apr 15, 2016 09:56
--- NOTE | 2016-04-15 11:24 | CONS ---
Date/Time of Note Date/Time of Note DATE: 04/15/16 TIME: 11:23 Assessment/Plan Assessment/Plan Chief Complaint/Hosp Course ABD PAIN, vomiting, and constipation- SBO VS ILEUS RECTAL ADENOCARCINOMA- POST chemo/xrt CEA-N CONT POSTOP CARE AWAIT APTH SEVERE IRON DEFICIENCY WITH Microcytic, hypochromic anemia. MONITOR BLOOD COUNT CLOSELY h/h- dropping no bleeding on IV IRON PRBC PRN Distal esophagitis with gastritis. Continue proton pump inhibitors. HTN POOR COMPLIANCE Problems: Consultation Date/Type/Reason Admit Date/Time Apr 01, 2016 at 18:54 Type of Consultation: HEMEON Referring Provider: LINDA WALDROP MD 24 HR Interval Summary Free Text/Dictation POST OP RECOVERING Exam/Review of Systems Vital Signs Vitals Vital Signs Date Time Temp Pulse Resp B/P Pulse Ox O2 Delivery O2 Flow Rate FiO2 04/15/16 07:45 98.7 78 18 141/63 97 04/15/16 04:25 Room Air 04/13/16 00:17 2.0 Intake and Output 04/14/16 04/14/16 04/15/16 15:00 23:00 07:00 Intake Total 1255 ml 700 ml 720 ml Output Total 120 ml 2290 ml 3130 ml Balance 1135 ml -1590 ml -2410 ml Exam General: Appears depressed. Frail in appearance Eyes: pupils equal round, Anicteric sclera Neck: Supple nontender, no JVD Cardiac: S1, S2 auscultated, regular rhythm and rate Pulmonary: No coarse rhonchi or breathing auscultated GI: [Colostomy site on left abdominal quadrant Extremities: No edema bilateral lower extremities Skin: [Decubitus ulcer Neurologic: Alert to person place and time and situation Results Result Diagram: 04/14/16 0435 04/15/16 0405 Results 24 hrs Laboratory Tests Test 04/15/16 04:05 Anion Gap 6 L Blood Urea Nitrogen 10 Calcium Level 6.9 L Carbon Dioxide Level 27 Chloride Level 103 Creatinine 0.61 Glucose Level 79 Potassium Level 3.8 Sodium Level 132 L Medications Medications Current Medications Ondansetron HCl (Zofran Inj) 4 mg Q6H PRN IV NAUSEA AND/OR VOMITING Last administered on 04/10/16t 17:27; Admin Dose 4 MG; Start 04/01/16 at 19:30 Acetaminophen (Tylenol Tab) 650 mg Q6H PRN PO PAIN LEVEL 1-3 OR FEVER Last administered on 04/03/16 19:12; Admin Dose 650 MG; Start 04/01/16 at 19:30 Magnesium Hydroxide (Milk Of Mag) 30 ml DAILY PRN PO CONSTIPATION Last administered on 04/04/16 23:30; Admin Dose 30 ML; Start 04/01/16 at 19:30 Lorazepam (Ativan) 0.5 mg Q6H PRN IV ANXIETY Last administered on 04/15/16 05: 33; Admin Dose 0.5 MG; Start 04/01/16 at 19:30 Hydralazine HCl (Apresoline) 10 mg Q6H PRN IV ELEVATED BLOOD PRESSURE; Start at 19:30 Nitroglycerin (Nitroglycerin (Sl Tab) 0.4 Mg) 1 tab Q5M PRN SL ANGINA; Start at 19:30 Ferrous Sulfate (Ferrous Sulfate (Ec)) 325 mg TID PO Last administered on 08:45; Admin Dose 325 MG; Start 04/04/16 at 13:00 Acetaminophen/ Hydrocodone Bitart ([place] (5/325)) 1 tab Q4H PRN PO PAIN LEVEL 4 -7; Start 04/12/16 at 15:00 Acetaminophen/ Hydrocodone Bitart ([place] (5/325)) 2 tab Q4H PRN PO PAIN LEVEL 7 -10 Last administered on 04/14/16 12:47; Admin Dose 2 TAB; Start 04/12/16 at 15 :00 Hydromorphone HCl (Dilaudid) 0.5 mg Q2 PRN IV PAIN; Start 04/12/16 at 15:00 Hydromorphone HCl (Dilaudid) 1 mg Q2 PRN IV PAIN Last administered on 04:29; Admin Dose 1 MG; Start 04/12/16 at 15:00 Docusate Sodium (Colace) 100 mg BID PRN PO CONSTIPATION; Start 04/12/16 at 15: 00 Bisacodyl (Dulcolax Supp) 10 mg BID PRN [place] CONSTIPATION; Start 04/12/16 at 15: 00 Furosemide (Lasix) 20 mg Q6 IV Last administered on 04/15/16 06:24; Admin Dose 20 MG; Start 04/14/16 at 18:00; Stop 04/15/16 at 12:01 Famotidine (Pepcid) 40 mg HS PO Last administered on 04/14/16 22:17; Admin Dose 40 MG; Start 04/14/16 at 21:00 Ketorolac Tromethamine (Toradol) 30 mg Q6H IV Last administered on 04/15/16 10 :46; Admin Dose 30 MG; Start 04/15/16 at 10:00; Stop 04/16/16 at 04:01 Duloxetine HCl (Cymbalta) 30 mg DAILY PO ; Start 04/15/16 at 11:00 JASMINA PALOMARES MD Apr 15, 2016 11:24
[2016-04-15] MEDS: DULOXETINE 30 MG CAP DR PO SCH (11:58)
[2016-04-15] MEDS: HYDROCODONE/APAP (5/325) TAB PO PRN (14:45)
[2016-04-15] MEDS: COLLAGENASE 30 GM TUBE TOP SCH (14:45)
--- NOTE | 2016-04-15 15:56 | PN ---
Date/Time of Note Date/Time of Note DATE: 04/15/16 TIME: 15:51 Assessment/Plan VTE Prophylaxis VTE Prophylaxis Intervention: SCD's Lines/Catheters IV Catheter Type (from Nrs): Saline Lock Urinary Cath still in place: Yes Reason Cath still needed: other (indicate) (monitor I&O) Assessment/Plan Chief Complaint/Hosp Course Assessment and plan 1. Abdominal pain likely secondary to ileus. Patient status post resection of terminal ileum and cecum with primary anastomosis we also resection of sigmoid colon and placement of colostomy on 04/12/2016. Continue postop care. Continue with wound care. 2. Ulcerative esophagitis. cont PPI 3. Gastritis. Continue on PPI 4. Moderately differentiated carcinoma of the rectum. Vision status post resection of terminal ileum and cecum with primary anastomosis. Colostomy now in place. Continue with oncology and surgical recommendations. 5. Iron deficiency anemia. Continue iron supplement 6. Essential hypertension. Provide with antihypertensives as needed. Stable at present 7. Depression. We'll start patient on duloxetine DVT prophylaxis: SCDs GERD prophylaxis: PPI Disposition and plan: Duloxetine started for depression. Advance diet per surgeon recommendations. Discharge him medically stable and cleared by consultants Discussed plan of care with Dr. Roberts Problems: Subjective 24 Hr Interval Summary Free Text/Dictation Appears depressed. RN at bedside Exam/Review of Systems Vital Signs Vitals Vital Signs Date Time Temp Pulse Resp B/P Pulse Ox O2 Delivery O2 Flow Rate FiO2 04/15/16 07:45 98.7 78 18 141/63 97 04/15/16 04:25 Room Air 04/13/16 00:17 2.0 Intake and Output 04/14/16 04/14/16 04/15/16 14:59 22:59 06:59 Intake Total 1255 ml 700 ml 720 ml Output Total 120 ml 2290 ml 3130 ml Balance 1135 ml -1590 ml -2410 ml Exam General: Appears depressed. Frail in appearance Eyes: pupils equal round, Anicteric sclera Neck: Supple nontender, no JVD Cardiac: S1, S2 auscultated, regular rhythm and rate Pulmonary: No coarse rhonchi or breathing auscultated GI: [Colostomy site on left abdominal quadrant Extremities: No edema bilateral lower extremities Skin: [Decubitus ulcer Neurologic: Alert to person place and time and situation Results Result Diagram: 04/14/16 0435 04/15/16 0405 Results 24 hrs Laboratory Tests Test 04/15/16 04:05 Anion Gap 6 L B-Type Natriuretic Peptide 323 H Blood Urea Nitrogen 10 Calcium Level 6.9 L Carbon Dioxide Level 27 Chloride Level 103 Creatinine 0.61 Glucose Level 79 Potassium Level 3.8 Sodium Level 132 L Medications Medications Current Medications Ondansetron HCl (Zofran Inj) 4 mg Q6H PRN IV NAUSEA AND/OR VOMITING Last administered on 04/10/16 17:27; Admin Dose 4 MG; Start 04/01/16 at 19:30 Acetaminophen (Tylenol Tab) 650 mg Q6H PRN PO PAIN LEVEL 1-3 OR FEVER Last administered on 04/03/16 19:12; Admin Dose 650 MG; Start 04/01/16 at 19:30 Magnesium Hydroxide (Milk Of Mag) 30 ml DAILY PRN PO CONSTIPATION Last administered on 04/04/16 23:30; Admin Dose 30 ML; Start 04/01/16 at 19:30 Lorazepam (Ativan) 0.5 mg Q6H PRN IV ANXIETY Last administered on 04/15/16 05: 33; Admin Dose 0.5 MG; Start 04/01/16 at 19:30 Hydralazine HCl (Apresoline) 10 mg Q6H PRN IV ELEVATED BLOOD PRESSURE; Start at 19:30 Nitroglycerin (Nitroglycerin (Sl Tab) 0.4 Mg) 1 tab Q5M PRN SL ANGINA; Start at 19:30 Ferrous Sulfate (Ferrous Sulfate (Ec)) 325 mg TID PO Last administered on 12:26; Admin Dose 325 MG; Start 04/04/16 at 13:00 Acetaminophen/ Hydrocodone Bitart ([place] (5/325)) 1 tab Q4H PRN PO PAIN LEVEL 4 -7; Start 04/12/16 at 15:00 Acetaminophen/ Hydrocodone Bitart ([place] (5/325)) 2 tab Q4H PRN PO PAIN LEVEL 7 -10 Last administered on 04/15/16 14:45; Admin Dose 2 TAB; Start 04/12/16 at 15 :00 Hydromorphone HCl (Dilaudid) 0.5 mg Q2 PRN IV PAIN; Start 04/12/16 at 15:00 Hydromorphone HCl (Dilaudid) 1 mg Q2 PRN IV PAIN Last administered on 04:29; Admin Dose 1 MG; Start 04/12/16 at 15:00 Docusate Sodium (Colace) 100 mg BID PRN PO CONSTIPATION; Start 04/12/16 at 15: 00 Bisacodyl (Dulcolax Supp) 10 mg BID PRN [place] CONSTIPATION; Start 04/12/16 at 15: 00 Famotidine (Pepcid) 40 mg HS PO Last administered on 04/14/16 22:17; Admin Dose 40 MG; Start 04/14/16 at 21:00 Ketorolac Tromethamine (Toradol) 30 mg Q6H IV Last administered on 04/15/16 10 :46; Admin Dose 30 MG; Start 04/15/16 at 10:00; Stop 04/16/16 at 04:01 Duloxetine HCl (Cymbalta) 30 mg DAILY PO Last administered on 04/15/16 11:58; Admin Dose 30 MG; Start 04/15/16 at 11:00 Collagenase (Santyl) 1 applic DAILY TOP Last administered on 04/15/16 14:45; Admin Dose 1 APPLIC; Start 04/15/16 at 13:00 GLORY CHEW Apr 15, 2016 15:56
[2016-04-15] MEDS: ONDANSETRON 4 MG INJ IV PRN (18:55)
[2016-04-15 19:35] VITALS: BP 161/77; RESP 20
--- NOTE | 2016-04-15 21:04 | PN ---
Date/Time of Note Date/Time of Note DATE: 04/15/16 TIME: 21:02 Assessment/Plan VTE Prophylaxis VTE Prophylaxis Intervention: SCD's Lines/Catheters IV Catheter Type (from Nrsg): Saline Lock Urinary Cath still in place: Yes Subjective 24 Hr Interval Summary Free Text/Dictation Anesthesia note: A 65 year male s/p lap explirTION, EXP LAP pod#3 ON EPIDURAL , PTIS COMFORTABLE. WANTS TO CONTINUE IT. DECREASE THE RATE TO SEE HOW HE FEELS TO WEAN AND DISCONTINUE EPIDURAL. Exam/Review of Systems Vital Signs Vitals Vital Signs Date Time Temp Pulse Resp B/P Pulse Ox O2 Delivery O2 Flow Rate FiO2 04/15/16 19:35 98.0 65 20 161/77 96 04/15/16 04:25 Room Air 04/13/16 00:17 2.0 Intake and Output 04/14/16 04/14/16 04/15/16 15:00 23:00 07:00 Intake Total 1255 ml 700 ml 720 ml Output Total 120 ml 2290 ml 3130 ml Balance 1135 ml -1590 ml -2410 ml Results Result Diagram: 04/14/16 0435 04/15/16 0405 Results 24 hrs Laboratory Tests Test 04/15/16 04:05 Anion Gap 6 L B-Type Natriuretic Peptide 323 H Blood Urea Nitrogen 10 Calcium Level 6.9 L Carbon Dioxide Level 27 Chloride Level 103 Creatinine 0.61 Glucose Level 79 Potassium Level 3.8 Sodium Level 132 L Medications Medications Current Medications Ondansetron HCl (Zofran Inj) 4 mg Q6H PRN IV NAUSEA AND/OR VOMITING Last administered on 04/15/16 18:55; Admin Dose 4 MG; Start 04/01/16 at 19:30 Acetaminophen (Tylenol Tab) 650 mg Q6H PRN PO PAIN LEVEL 1-3 OR FEVER Last administered on 04/03/16 19:12; Admin Dose 650 MG; Start 04/01/16 at 19:30 Magnesium Hydroxide (Milk Of Mag) 30 ml DAILY PRN PO CONSTIPATION Last administered on 04/04/16 23:30; Admin Dose 30 ML; Start 04/01/16 at 19:30 Lorazepam (Ativan) 0.5 mg Q6H PRN IV ANXIETY Last administered on 04/15/16 05: 33; Admin Dose 0.5 MG; Start 04/01/16 at 19:30 Hydralazine HCl (Apresoline) 10 mg Q6H PRN IV ELEVATED BLOOD PRESSURE; Start at 19:30 Nitroglycerin (Nitroglycerin (Sl Tab) 0.4 Mg) 1 tab Q5M PRN SL ANGINA; Start at 19:30 Ferrous Sulfate (Ferrous Sulfate (Ec)) 325 mg TID PO Last administered on 12:26; Admin Dose 325 MG; Start 04/04/16 at 13:00 Acetaminophen/ Hydrocodone Bitart ([place] (5/325)) 1 tab Q4H PRN PO PAIN LEVEL 4 -7; Start 04/12/16 at 15:00 Acetaminophen/ Hydrocodone Bitart ([place] (5/325)) 2 tab Q4H PRN PO PAIN LEVEL 7 -10 Last administered on 04/15/16 14:45; Admin Dose 2 TAB; Start 04/12/16 at 15 :00 Hydromorphone HCl (Dilaudid) 0.5 mg Q2 PRN IV PAIN; Start 04/12/16 at 15:00 Hydromorphone HCl (Dilaudid) 1 mg Q2 PRN IV PAIN Last administered on 04:29; Admin Dose 1 MG; Start 04/12/16 at 15:00 Docusate Sodium (Colace) 100 mg BID PRN PO CONSTIPATION; Start 04/12/16 at 15: 00 Bisacodyl (Dulcolax Supp) 10 mg BID PRN [place] CONSTIPATION; Start 04/12/16 at 15: 00 Famotidine (Pepcid) 40 mg HS PO Last administered on 04/14/16 22:17; Admin Dose 40 MG; Start 04/14/16 at 21:00 Ketorolac Tromethamine (Toradol) 30 mg Q6H IV Last administered on 04/15/16 15 :54; Admin Dose 30 MG; Start 04/15/16 at 10:00; Stop 04/16/16 at 04:01 Duloxetine HCl (Cymbalta) 30 mg DAILY PO Last administered on 04/15/16 11:58; Admin Dose 30 MG; Start 04/15/16 at 11:00 Collagenase (Santyl) 1 applic DAILY TOP Last administered on 04/15/16 14:45; Admin Dose 1 APPLIC; Start 04/15/16 at 13:00 ASPEN PAUL MD Apr 15, 2016 21:04
[2016-04-15] MEDS: FAMOTIDINE 20 MG TAB PO SCH (21:44)
[2016-04-15 22:58] VITALS: BP 136/69; PULSE 74; RESP 17
[2016-04-16] MEDS: KETOROLAC 30 MG INJ IV SCH (03:33)
[2016-04-16] MEDS: HYDROmorphONE 1 MG/ML SYG IV PRN ×6 (03:33→22:51)
[2016-04-16] MEDS: DULOXETINE 30 MG CAP DR PO SCH (03:33)
[2016-04-16 05:01] LABS: BASOPHILS % 0.4 % (0.0-2.0); EOSINOPHILS # 0.1 10^3/ul (0.0-0.5); EOSINOPHILS % 1.5 % (0.0-7.0); HEMATOCRIT 24.2 % (42.0-52.0); HEMOGLOBIN 7.9 g/dl (14.0-18.0); LYMPHOCYTES # 0.4 10^3/ul (0.8-2.9); LYMPHOCYTES % 7.7 % (15.0-51.0); MEAN CORPUSCULAR HGB CONC 32.6 g/dl (32.0-37.0); MEAN CORPUSCULAR VOLUME 70.6 fl (82.0-101.0); MONOCYTE # 0.4 10^3/ul (0.3-0.9); MONOCYTES % 7.1 % (0.0-11.0); NEUTROPHIL # 4.4 10^3/ul (1.6-7.5); NEUTROPHILS % 83.3 % (39.0-77.0); PLATELET COUNT 403 10^3/UL (140-440); RED BLOOD COUNT 3.43 10^6/ul (4.70-6.10); RED CELL DISTRIBUTION WIDTH 18.3 % (11.5-14.5); UNCORRECTED WBC 5.2 10^3/ul (4.8-10.8); WHITE BLOOD COUNT 5.2 10^3/ul (4.8-10.8)
[2016-04-16 05:04] LABS: CONDITION 1; LH ANALYZER COMMENTS 1; SUSPECT 1
[2016-04-16 05:33] LABS: POTASSIUM 3.6 mmol/L (3.5-5.1)
[2016-04-16 05:36] LABS: CREATININE 0.53 mg/dl (0.61-1.24)
[2016-04-16 07:51] VITALS: BP 130/70; RESP 20
[2016-04-16] MEDS: FERROUS SULFATE (EC) 325 MG TAB PO SCH ×3 (08:48→20:53)
[2016-04-16] MEDS: FENTAnyl 2MCG/ML-ROPIV 0.2% 100 ML BAG EPI SCH ×2 (08:48→18:30)
--- NOTE | 2016-04-16 10:02 | PN ---
Date/Time of Note Date/Time of Note DATE: 04/16/16 TIME: 10:02 Assessment/Plan Lines/Catheters IV Catheter Type (from Nrsg): Saline Lock Coates in Place (from Nrsg): Yes Assessment/Plan Assessment/Plan [facility] Progress Note Date of Service: 04/16/16 Today's Impression & Plan: Overall stable and doing remarkably well given the degree of complexity of the operation. No obvious evidence of major postoperative complication or any wound problems. Ostomy appears to be viable and + bowel activity. Awaiting further increase in physical activity. Drain fluid Cr still pending. Urine in bag dowling yellow without any hind of red. Progressing through conversion to orals. With above assessment, I've recommended the following for today: 1. Increase activity 2. Increase incentive spirometry 3. Cont. PT OT eval 4. BNP seems ok; no further need for diuretics today 5. Ostomy care 6. Reg diet 7. D/c epidural today 8. Discontinue Coates once epidural is out 9. D/c planning Thank you again for your great care of this very pleasant patient and wonderful family. If there are any questions, please feel free to call me at [phone]. TOTAL VISIT TIME: 20 minutes of which more than half was spent in [id number] discussion with the patient, possibly including family, as well as coordination of care between multiple physicians and providers. Disclaimer: Inadvertent spelling or grammatical errors are likely due to EHR/ dictation software use and do not reflect on the overall quality of patient care. Updated Clinical Summary: The patient is a very pleasant 65-year-old gentleman with comorbidities including hypertension, who was initially admitted to [facility] through ED on 2015 with signs and symptoms consistent with anemia that eventually was shown to be a large, nearly obstructing mass approximately 12 cm from the anal verge up to the area of the rectosigmoid junction on colonoscopy 06/07/2015. Plan at that time was neoadjuvant treatment with chemoradiation followed by restaging and surgical resection. Patient underwent radiation therapy (Dr. Aranda) that ended September 2015 (patient's recollection was November 2015). Discussions with multiple colleagues revealed evidence that the patient had been not following instructions and there were barriers to get the patient to surgical intervention. At least part of the barriers were due to patient factors alone. Patient reported having contacted my office approximately 5 times to try and make an appointment and was told that we "do not accept" his insurance. Careful review of office records showed no documentation of patient calling. Patient also believed that he had had [employer] as his insurance carrier, but his insurance carrier was [employer] (accepted by our program). Patient re-presented to [facility] through ED with constipation, vomiting, abdominal distension and dilated loops of small intestine on 04/01/16. Significant comorbidities included not insignificant malnutrition with BMI 15.8 and dehydration, albumin of 3.6 in the setting of inability to feed enterically. Small area of liver in segment 6 and two very small areas in segment 4a of questionable significance (too small to tell) benign path vs. metastatic disease. We attempted to treat the bowel obstruction with nonoperative management with the hope that the patient would be able to increase his oral intake and improve his nutritional status prior to potentially getting systemic chemotherapy in the neoadjuvant fashion before surgical intervention. Patient very clearly showed us that his bowels were not able to tolerate any meaningful amount of nutritional intake after a few days of this management and for this reason, and after a multidisciplinary discussion, we decided to change our treatment strategy and take the patient to the operating room. List of operative interventions on 04/12/16: 1. Laparoscopic exploration converted to open exploration 2. Partial colectomy with removal of upper part of rectum and sigmoid colon ( modifier 22) 3. Resection of the end of terminal ileum along with cecum with primary anastomosis 4. Performance of an colostomy using distal descending colon 5. Extensive lysis of adhesions (at least 60 minutes) 6. Intraoperative ultrasound of the liver 7. Abdominal lavage Comorbidities: 1. Rectal malignancy, s/p chemotherapy and radiation June to Nov 2015; obstruction end of terminal ileum as well as at the level of the rectosigmoid junction with aggressive locally advanced rectal cancer; S/p an otherwise uncomplicated but challenging resection of both involved portions of rectosigmoid as well as terminal ileum in the setting of aggressive rectal cancer with local invasion of the pelvis on 04/13/16. 2. Hypertension 3. Cachexia; BMI 15.8; albumin of 3.6 in the setting of inability to feed enterically 4. Colonoscopy June 2015 5. Anxiety Subjective: No reported major events or complaints; no major abd pain and under control with medications; reports and feels ok; no nausea; no vomiting; no sob or cp; + flatus; + BM; minimal activity (sat in a chair today) Objective: Vitals: See below Exam: GENERAL: On exam, the patient was laying in bed and appeared to be comfortable and in no acute distress. ABDOMEN: Soft, nontender and nondistended. There are no peritoneal signs or guarding. Incision dressings c/d/i w/o obvious underlying e/e/d/h. Ostomy pink, viable and productive. SKIN: Skin appears to be pink and feels warm to touch. NEUROLOGIC: Patient is awake, alert, and follows commands appropriately. Exam/Review of Systems Vital Signs Vitals Vital Signs Date Time Temp Pulse Resp B/P Pulse Ox O2 Delivery O2 Flow Rate FiO2 04/16/16 07:51 97.8 72 20 130/70 98 04/15/16 22:58 Room Air 04/13/16 00:17 2.0 Intake and Output 04/15/16 04/15/16 04/16/16 15:00 23:00 07:00 Intake Total 800 ml 200 ml Output Total 90 ml 2650 ml 700 ml Balance -90 ml -1850 ml -500 ml Results Result Diagram: 04/16/16 0425 04/16/16 0425 DIVINE BEY M.D. Apr 16, 2016 10:02 DIVINE BEY M.D. Apr 16, 2016 10:02
[2016-04-16] MEDS: COLLAGENASE 30 GM TUBE TOP SCH (12:28)
[2016-04-16] MEDS: ONDANSETRON 4 MG INJ IV PRN (12:31)
--- NOTE | 2016-04-16 15:23 | PN ---
Date/Time of Note Date/Time of Note DATE: 04/16/16 TIME: 15:21 Assessment/Plan VTE Prophylaxis VTE Prophylaxis Intervention: SCD's Lines/Catheters IV C[facility] Type ([facility] Saline Lock Urinary Cath still in place: Yes Reason Cath still needed: other (indicate) (monitor I&O) Assessment/Plan Chief Complaint/Hosp Course Assessment and plan 1. Abdominal pain likely secondary to ileus. Patient status post resection of terminal ileum and cecum with primary anastomosis we also resection of sigmoid colon and placement of colostomy on 04/12/2016. Continue postop care. Continue with wound care. 2. Ulcerative esophagitis. cont PPI 3. Gastritis. Continue on PPI 4. Moderately differentiated carcinoma of the rectum. Vision status post resection of terminal ileum and cecum with primary anastomosis. Colostomy now in place. Continue with oncology and surgical recommendations. 5. Iron deficiency anemia. Continue iron supplement 6. Essential hypertension. Provide with antihypertensives as needed. Stable at present 7. Depression. We'll start patient on duloxetine DVT prophylaxis: SCDs GERD prophylaxis: PPI Disposition and plan: Continue on diet per surgeon. Physical therapy to follow. We'll see for possible ARU eval Discussed plan of care with Dr. Roberts Problems: Subjective 24 Hr Interval Summary Free Text/Dictation No apparent distress. Still with some depression. Exam/Review of Systems Vital Signs Vitals Vital Signs Date Time Temp Pulse Resp B/P Pulse Ox O2 Delivery O2 Flow Rate FiO2 04/16/16 07:51 97.8 72 20 130/70 98 04/15/16 22:58 Room Air 04/13/16 00:17 2.0 Intake and Output 04/15/16 04/15/16 04/16/16 15:00 23:00 07:00 Intake Total 800 ml 200 ml Output Total 90 ml 2650 ml 700 ml Balance -90 ml -1850 ml -500 ml Exam General: Appears depressed. Frail in appearance Eyes: pupils equal round, Anicteric sclera Neck: Supple nontender, no JVD Cardiac: S1, S2 auscultated, regular rhythm and rate Pulmonary: No coarse rhonchi or breathing auscultated GI: [Colostomy site on left abdominal quadrant Extremities: No edema bilateral lower extremities Skin: [Decubitus ulcer Neurologic: Alert to person place and time and situation Results Result Diagram: 04/16/1642404/16/16424 Results 24 hrs Laboratory Tests Test 04/16/16 04:25 Anion Gap 5 L Basophils # 0.0 Basophils % 0.4 Blood Morphology Comment Blood Urea Nitrogen 12 Calcium Level 7.0 L Carbon Dioxide Level 30 Chloride Level 100 Creatinine 0.53 L Eosinophils # 0.1 Eosinophils % 1.5 Glucose Level 72 Hematocrit 24.2 L Hemoglobin 7.9 L Lymphocytes # 0.4 L Lymphocytes % 7.7 L Mean Corpuscular Hemoglobin 23.0 L Mean Corpuscular Hemoglobin Concent 32.6 Mean Corpuscular Volume 70.6 L Mean Platelet Volume 7.0 L Monocytes # 0.4 Monocytes % 7.1 Neutrophils # 4.4 Neutrophils % 83.3 H Nucleated Red Blood Cells # 0.0 Nucleated Red Blood Cells % 0.0 Platelet Count 403 Potassium Level 3.6 Red Blood Count 3.43 L Red Cell Distribution Width 18.3 H Sodium Level 131 L White Blood Count 5.2 # Medications Medications Current Medications Ondansetron HCl (Zofran Inj) 4 mg Q6H PRN IV NAUSEA AND/OR VOMITING Last administered on 04/16/16 12:31; Admin Dose 4 MG; Start 04/01/16 at 19:30 Acetaminophen (Tylenol Tab) 650 mg Q6H PRN PO PAIN LEVEL 1-3 OR FEVER Last administered on 04/03/16 19:12; Admin Dose 650 MG; Start 04/01/16 at 19:30 Magnesium Hydroxide (Milk Of Mag) 30 ml DAILY PRN PO CONSTIPATION Last administered on 04/04/16 23:30; Admin Dose 30 ML; Start 04/01/16 at 19:30 Lorazepam (Ativan) 0.5 mg Q6H PRN IV ANXIETY Last administered on 04/15/16 05: 33; Admin Dose 0.5 MG; Start 04/01/16 at 19:30 Hydralazine HCl (Apresoline) 10 mg Q6H PRN IV ELEVATED BLOOD PRESSURE; Start at 19:30 Nitroglycerin (Nitroglycerin (Sl Tab) 0.4 Mg) 1 tab Q5M PRN SL ANGINA; Start at 19:30 Ferrous Sulfate (Ferrous Sulfate (Ec)) 325 mg TID PO Last administered on 12:27; Admin Dose 325 MG; Start 04/04/16 at 13:00 Acetaminophen/ Hydrocodone Bitart ([place] (5/325)) 1 tab Q4H PRN PO PAIN LEVEL 4 -7; Start 04/12/16 at 15:00 Acetaminophen/ Hydrocodone Bitart ([place] (5/325)) 2 tab Q4H PRN PO PAIN LEVEL 7 -10 Last administered on 04/15/16 14:45; Admin Dose 2 TAB; Start 04/12/16 at 15 :00 Hydromorphone HCl (Dilaudid) 0.5 mg Q2 PRN IV PAIN; Start 04/12/16 at 15:00 Hydromorphone HCl (Dilaudid) 1 mg Q2 PRN IV PAIN Last administered on 12:31; Admin Dose 1 MG; Start 04/12/16 at 15:00 Docusate Sodium (Colace) 100 mg BID PRN PO CONSTIPATION; Start 04/12/16 at 15: 00 Bisacodyl (Dulcolax Supp) 10 mg BID PRN [place] CONSTIPATION; Start 04/12/16 at 15: 00 Famotidine (Pepcid) 40 mg HS PO Last administered on 04/15/16 21:44; Admin Dose 40 MG; Start 04/14/16 at 21:00 Collagenase (Santyl) 1 applic DAILY TOP Last administered on 04/16/16 12:28; Admin Dose 1 APPLIC; Start 04/15/16 at 13:00 GLORY CHEW Apr 16, 2016 15:23
--- NOTE | 2016-04-16 19:06 | CONS ---
Date/Time of Note Date/Time of Note DATE: 04/16/16 TIME: 19:05 Assessment/Plan Assessment/Plan Chief Complaint/Hosp Course ABD PAIN, vomiting, and constipation- SBO VS ILEUS RECTAL ADENOCARCINOMA- POST chemo/xrt CEA-N POST OP AWAIT PATH SEVERE IRON DEFICIENCY WITH Microcytic, hypochromic anemia. MONITOR BLOOD COUNT CLOSELY h/h- dropping no bleeding on IV IRON PRBC PRN Distal esophagitis with gastritis. Continue proton pump inhibitors. HTN POOR COMPLIANCE Problems: Consultation Date/Type/Reason Admit Date/Time Apr 01, 2016 at 18:54 Type of Consultation: HEMEON Referring Provider: LINDA WALDROP MD 24 HR Interval Summary Free Text/Dictation ALL NOTED PAIN CONTROLLED Exam/Review of Systems Vital Signs Vitals Vital Signs Date Time Temp Pulse Resp B/P Pulse Ox O2 Delivery O2 Flow Rate FiO2 04/16/16 07:51 97.8 72 20 130/70 98 04/15/16 22:58 Room Air 04/13/16 00:17 2.0 Intake and Output 04/15/16 04/15/16 04/16/16 15:00 23:00 07:00 Intake Total 800 ml 200 ml Output Total 90 ml 2650 ml 700 ml Balance -90 ml -1850 ml -500 ml Exam General: Appears depressed. Frail in appearance Eyes: pupils equal round, Anicteric sclera Neck: Supple nontender, no JVD Cardiac: S1, S2 auscultated, regular rhythm and rate Pulmonary: No coarse rhonchi or breathing auscultated GI: [Colostomy site on left abdominal quadrant Extremities: No edema bilateral lower extremities Skin: [Decubitus ulcer Neurologic: Alert to person place and time and situation Results Result Diagram: 04/16/16 0425 04/16/16 0425 Results 24 hrs Laboratory Tests Test 04/16/16 04:25 Anion Gap 5 L Basophils # 0.0 Basophils % 0.4 Blood Morphology Comment Blood Urea Nitrogen 12 Calcium Level 7.0 L Carbon Dioxide Level 30 Chloride Level 100 Creatinine 0.53 L Eosinophils # 0.1 Eosinophils % 1.5 Glucose Level 72 Hematocrit 24.2 L Hemoglobin 7.9 L Lymphocytes # 0.4 L Lymphocytes % 7.7 L Mean Corpuscular Hemoglobin 23.0 L Mean Corpuscular Hemoglobin Concent 32.6 Mean Corpuscular Volume 70.6 L Mean Platelet Volume 7.0 L Monocytes # 0.4 Monocytes % 7.1 Neutrophils # 4.4 Neutrophils % 83.3 H Nucleated Red Blood Cells # 0.0 Nucleated Red Blood Cells % 0.0 Platelet Count 403 Potassium Level 3.6 Red Blood Count 3.43 L Red Cell Distribution Width 18.3 H Sodium Level 131 L White Blood Count 5.2 # Medications Medications Current Medications Ondansetron HCl (Zofran Inj) 4 mg Q6H PRN IV NAUSEA AND/OR VOMITING Last administered on 04/16/16 12:31; Admin Dose 4 MG; Start 04/01/16 at 19:30 Acetaminophen (Tylenol Tab) 650 mg Q6H PRN PO PAIN LEVEL 1-3 OR FEVER Last administered on 04/03/16 19:12; Admin Dose 650 MG; Start 04/01/16 at 19:30 Magnesium Hydroxide (Milk Of Mag) 30 ml DAILY PRN PO CONSTIPATION Last administered on 04/04/16 23:30; Admin Dose 30 ML; Start 04/01/16 at 19:30 Lorazepam (Ativan) 0.5 mg Q6H PRN IV ANXIETY Last administered on 04/15/16 05: 33; Admin Dose 0.5 MG; Start 04/01/16 at 19:30 Hydralazine HCl (Apresoline) 10 mg Q6H PRN IV ELEVATED BLOOD PRESSURE; Start at 19:30 Nitroglycerin (Nitroglycerin (Sl Tab) 0.4 Mg) 1 tab Q5M PRN SL ANGINA; Start at 19:30 Ferrous Sulfate (Ferrous Sulfate (Ec)) 325 mg TID PO Last administered on 12:27; Admin Dose 325 MG; Start 04/04/16 at 13:00 Acetaminophen/ Hydrocodone Bitart ([place] (5/325)) 1 tab Q4H PRN PO PAIN LEVEL 4 -7; Start 04/12/16 at 15:00 Acetaminophen/ Hydrocodone Bitart ([place] (5/325)) 2 tab Q4H PRN PO PAIN LEVEL 7 -10 Last administered on 04/15/16 14:45; Admin Dose 2 TAB; Start 04/12/16 at 15 :00 Hydromorphone HCl (Dilaudid) 0.5 mg Q2 PRN IV PAIN; Start 04/12/16 at 15:00 Hydromorphone HCl (Dilaudid) 1 mg Q2 PRN IV PAIN Last administered on 18:23; Admin Dose 1 MG; Start 04/12/16 at 15:00 Docusate Sodium (Colace) 100 mg BID PRN PO CONSTIPATION; Start 04/12/16 at 15: 00 Bisacodyl (Dulcolax Supp) 10 mg BID PRN MD CONSTIPATION; Start 04/12/16 at 15: 00 Famotidine (Pepcid) 40 mg HS PO Last administered on 04/15/16 21:44; Admin Dose 40 MG; Start 04/14/16 at 21:00 Collagenase (Santyl) 1 applic DAILY TOP Last administered on 04/16/16 12:28; Admin Dose 1 APPLIC; Start 04/15/16 at 13:00 JASMINA PALOMARES MD Apr 16, 2016 19:06
[2016-04-16 19:34] VITALS: BP 145/67; RESP 20
[2016-04-16] MEDS: FAMOTIDINE 20 MG TAB PO SCH (20:53)
[2016-04-17] MEDS: HYDROmorphONE 1 MG/ML SYG IV PRN ×5 (03:15→17:10)
[2016-04-17 05:47] LABS: BASOPHILS % 0.1 % (0.0-2.0); CONDITION 1; EOSINOPHILS # 0.1 10^3/ul (0.0-0.5); EOSINOPHILS % 1.2 % (0.0-7.0); HEMOGLOBIN 8.2 g/dl (14.0-18.0); LH ANALYZER COMMENTS 1; LYMPHOCYTES # 0.6 10^3/ul (0.8-2.9); LYMPHOCYTES % 11.2 % (15.0-51.0); MEAN CORPUSCULAR HEMOGLOBIN 23.1 pg (29.0-33.0); MEAN CORPUSCULAR HGB CONC 32.7 g/dl (32.0-37.0); MEAN CORPUSCULAR VOLUME 70.7 fl (82.0-101.0); MONOCYTE # 0.5 10^3/ul (0.3-0.9); MONOCYTES % 9.1 % (0.0-11.0); NEUTROPHIL # 4.2 10^3/ul (1.6-7.5); NEUTROPHILS % 78.4 % (39.0-77.0); PLATELET COUNT 447 10^3/UL (140-440); RED BLOOD COUNT 3.54 10^6/ul (4.70-6.10); RED CELL DISTRIBUTION WIDTH 19.5 % (11.5-14.5); UNCORRECTED WBC 5.4 10^3/ul (4.8-10.8); WHITE BLOOD COUNT 5.4 10^3/ul (4.8-10.8)
[2016-04-17 05:59] LABS: CREATININE 0.52 mg/dl (0.61-1.24)
[2016-04-17 06:00] LABS: CALCIUM 7.3 mg/dl (8.4-10.2)
[2016-04-17 07:11] VITALS: BP 138/67; RESP 16
[2016-04-17] MEDS: HYDROCODONE/APAP (5/325) TAB PO PRN (08:50)
[2016-04-17] MEDS: COLLAGENASE 30 GM TUBE TOP SCH (08:51)
[2016-04-17] MEDS: FERROUS SULFATE (EC) 325 MG TAB PO SCH ×3 (08:51→21:04)
--- NOTE | 2016-04-17 10:39 | PN ---
Date/Time of Note Date/Time of Note DATE: 04/17/16 TIME: 10:38 Assessment/Plan VTE Prophylaxis VTE Prophylaxis Intervention: ambulation, SCD's Lines/Catheters IV Catheter Type (from Nrsg): Peripheral IV Urinary Cath still in place: Yes Subjective 24 Hr Interval Summary Free Text/Dictation Anesthesia note:A 65 yea male s/p exp lap colectomy POD#5, edoing fine. epidural catheter out, tip is intact Exam/Review of Systems Vital Signs Vitals Vital Signs Date Time Temp Pulse Resp B/P Pulse Ox O2 Delivery O2 Flow Rate FiO2 04/17/16 07:11 98.3 72 16 138/67 98 04/15/16 22:58 Room Air Intake and Output 04/16/16 04/16/16 04/17/16 15:00 23:00 07:00 Intake Total 480 ml 320 ml Output Total 1060 ml 1070 ml Balance -580 ml -750 ml Results Result Diagram: 04/17/16 0421 04/17/16 0421 Results 24 hrs Laboratory Tests Test 04/17/16 04:21 Anion Gap 7 L Basophils # 0.0 Basophils % 0.1 Blood Morphology Comment Blood Urea Nitrogen 11 Calcium Level 7.3 L Carbon Dioxide Level 29 Chloride Level 100 Creatinine 0.52 L Eosinophils # 0.1 Eosinophils % 1.2 Glucose Level 87 Hematocrit 25.0 L Hemoglobin 8.2 L Lymphocytes # 0.6 L Lymphocytes % 11.2 L Mean Corpuscular Hemoglobin 23.1 L Mean Corpuscular Hemoglobin Concent 32.7 Mean Corpuscular Volume 70.7 L Mean Platelet Volume 7.0 L Monocytes # 0.5 Monocytes % 9.1 Neutrophils # 4.2 Neutrophils % 78.4 H Nucleated Red Blood Cells # 0.0 Nucleated Red Blood Cells % 0.0 Platelet Count 447 H Potassium Level 4.0 Red Blood Count 3.54 L Red Cell Distribution Width 19.5 H Sodium Level 132 L White Blood Count 5.4 Medications Medications Current Medications Ondansetron HCl (Zofran Inj) 4 mg Q6H PRN IV NAUSEA AND/OR VOMITING Last administered on 04/16/16 12:31; Admin Dose 4 MG; Start 04/01/16 at 19:30 Acetaminophen (Tylenol Tab) 650 mg Q6H PRN PO PAIN LEVEL 1-3 OR FEVER Last administered on 04/03/16 19:12; Admin Dose 650 MG; Start 04/01/16 at 19:30 Magnesium Hydroxide (Milk Of Mag) 30 ml DAILY PRN PO CONSTIPATION Last administered on 04/04/16 23:30; Admin Dose 30 ML; Start 04/01/16 at 19:30 Lorazepam (Ativan) 0.5 mg Q6H PRN IV ANXIETY Last administered on 04/15/16 05: 33; Admin Dose 0.5 MG; Start 04/01/16 at 19:30 Hydralazine HCl (Apresoline) 10 mg Q6H PRN IV ELEVATED BLOOD PRESSURE; Start at 19:30 Nitroglycerin (Nitroglycerin (Sl Tab) 0.4 Mg) 1 tab Q5M PRN SL ANGINA; Start at 19:30 Ferrous Sulfate (Ferrous Sulfate (Ec)) 325 mg TID PO Last administered on 08:51; Admin Dose 325 MG; Start 04/04/16 at 13:00 Acetaminophen/ Hydrocodone Bitart ([place] (5/325)) 1 tab Q4H PRN PO PAIN LEVEL 4 -7; Start 04/12/16 at 15:00 Acetaminophen/ Hydrocodone Bitart ([place] (5/325)) 2 tab Q4H PRN PO PAIN LEVEL 7 -10 Last administered on 04/17/16 08:50; Admin Dose 2 TAB; Start 04/12/16 at 15 :00 Hydromorphone HCl (Dilaudid) 0.5 mg Q2 PRN IV PAIN; Start 04/12/16 at 15:00 Hydromorphone HCl (Dilaudid) 1 mg Q2 PRN IV PAIN Last administered on 06:09; Admin Dose 1 MG; Start 04/12/16 at 15:00 Docusate Sodium (Colace) 100 mg BID PRN PO CONSTIPATION; Start 04/12/16 at 15: 00 Bisacodyl (Dulcolax Supp) 10 mg BID PRN [place] CONSTIPATION; Start 04/12/16 at 15: 00 Famotidine (Pepcid) 40 mg HS PO Last administered on 04/16/16 20:53; Admin Dose 40 MG; Start 04/14/16 at 21:00 Collagenase (Santyl) 1 applic DAILY TOP Last administered on 2/15/17at 08:51; Admin Dose 1 APPLIC; Start 04/15/16 at 13:00 ASPEN PAUL MD Apr 17, 2016 10:39
[2016-04-17] MEDS ORDERED: OXYCODONE/ACETAMINOPHEN (5/325) TAB PO PRN (14:30)
--- NOTE | 2016-04-17 15:34 | PN ---
Date/Time of Note Date/Time of Note DATE: 04/17/16 TIME: 15:33 Assessment/Plan VTE Prophylaxis VTE Prophylaxis Intervention: SCD's Lines/Catheters IV Catheter Type (from Nrs): Peripheral IV Urinary Cath still in place: No Assessment/Plan Chief Complaint/Hosp Course Assessment and plan 1. Abdominal pain likely secondary to ileus. Patient status post resection of terminal ileum and cecum with primary anastomosis we also resection of sigmoid colon and placement of colostomy on 04/12/2016. Continue postop care. Continue with wound care. 2. Ulcerative esophagitis. cont PPI 3. Gastritis. Continue on PPI 4. Moderately differentiated carcinoma of the rectum. Vision status post resection of terminal ileum and cecum with primary anastomosis. Colostomy now in place. Continue with oncology and surgical recommendations. 5. Iron deficiency anemia. Continue iron supplement 6. Essential hypertension. Provide with antihypertensives as needed. Stable at present 7. Depression. We'll start patient on duloxetine DVT prophylaxis: SCDs GERD prophylaxis: PPI Disposition and plan: Continue on diet per surgeon. Continue with physical therapy. Still reports weakness. We'll try for long term facility placement. Discussed plan of care with Dr. Roberts Problems: Subjective 24 Hr Interval Summary Free Text/Dictation No apparent distress. Comfortable at this time. Exam/Review of Systems Vital Signs Vitals Vital Signs Date Time Temp Pulse Resp B/P Pulse Ox O2 Delivery O2 Flow Rate FiO2 04/17/16 07:11 98.3 72 16 138/67 98 04/15/16 22:58 Room Air Intake and Output 04/16/16 04/16/16 04/17/16 14:59 22:59 06:59 Intake Total 480 ml 320 ml Output Total 1060 ml 1020 ml Balance -580 ml -700 ml Exam General: Appears depressed. Frail in appearance Eyes: pupils equal round, Anicteric sclera Neck: Supple nontender, no JVD Cardiac: S1, S2 auscultated, regular rhythm and rate Pulmonary: No coarse rhonchi or breathing auscultated GI: [Colostomy site on left abdominal quadrant Extremities: No edema bilateral lower extremities Skin: [Decubitus ulcer Neurologic: Alert to person place and time and situation Results Result Diagram: 04/17/16 04204/17/16 042 Results 24 hrs Laboratory Tests Test 04/17/16 04:21 Anion Gap 7 L Basophils # 0.0 Basophils % 0.1 Blood Morphology Comment Blood Urea Nitrogen 11 Calcium Level 7.3 L Carbon Dioxide Level 29 Chloride Level 100 Creatinine 0.52 L Eosinophils # 0.1 Eosinophils % 1.2 Glucose Level 87 Hematocrit 25.0 L Hemoglobin 8.2 L Lymphocytes # 0.6 L Lymphocytes % 11.2 L Mean Corpuscular Hemoglobin 23.1 L Mean Corpuscular Hemoglobin Concent 32.7 Mean Corpuscular Volume 70.7 L Mean Platelet Volume 7.0 L Monocytes # 0.5 Monocytes % 9.1 Neutrophils # 4.2 Neutrophils % 78.4 H Nucleated Red Blood Cells # 0.0 Nucleated Red Blood Cells % 0.0 Platelet Count 447 H Potassium Level 4.0 Red Blood Count 3.54 L Red Cell Distribution Width 19.5 H Sodium Level 132 L White Blood Count 5.4 Medications Medications Current Medications Ondansetron HCl (Zofran Inj) 4 mg Q6H PRN IV NAUSEA AND/OR VOMITING Last administered on 04/16/16 12:31; Admin Dose 4 MG; Start 04/01/16 at 19:30 Acetaminophen (Tylenol Tab) 650 mg Q6H PRN PO PAIN LEVEL 1-3 OR FEVER Last administered on 04/03/16 19:12; Admin Dose 650 MG; Start 04/01/16 at 19:30 Magnesium Hydroxide (Milk Of Mag) 30 ml DAILY PRN PO CONSTIPATION Last administered on 04/04/16 23:30; Admin Dose 30 ML; Start 04/01/16 at 19:30 Lorazepam (Ativan) 0.5 mg Q6H PRN IV ANXIETY Last administered on 04/15/16 05: 33; Admin Dose 0.5 MG; Start 04/01/16 at 19:30 Hydralazine HCl (Apresoline) 10 mg Q6H PRN IV ELEVATED BLOOD PRESSURE; Start at 19:30 Nitroglycerin (Nitroglycerin (Sl Tab) 0.4 Mg) 1 tab Q5M PRN SL ANGINA; Start at 19:30 Ferrous Sulfate (Ferrous Sulfate (Ec)) 325 mg TID PO Last administered on 14:35; Admin Dose 325 MG; Start 04/04/16 at 13:00 Acetaminophen/ Hydrocodone Bitart ([place] (5/325)) 1 tab Q4H PRN PO PAIN LEVEL 4 -7; Start 04/12/16 at 15:00 Acetaminophen/ Hydrocodone Bitart ([place] (5/325)) 2 tab Q4H PRN PO PAIN LEVEL 7 -10 Last administered on 04/17/16 08:50; Admin Dose 2 TAB; Start 04/12/16 at 15 :00 Hydromorphone HCl (Dilaudid) 0.5 mg Q2 PRN IV PAIN; Start 04/12/16 at 15:00 Hydromorphone HCl (Dilaudid) 1 mg Q2 PRN IV PAIN Last administered on 14:41; Admin Dose 1 MG; Start 04/12/16 at 15:00 Docusate Sodium (Colace) 100 mg BID PRN PO CONSTIPATION; Start 04/12/16 at 15: 00 Bisacodyl (Dulcolax Supp) 10 mg BID PRN NE CONSTIPATION; Start 04/12/16 at 15: 00 Famotidine (Pepcid) 40 mg HS PO Last administered on 04/16/16 20:53; Admin Dose 40 MG; Start 04/14/16 at 21:00 Collagenase (Santyl) 1 applic DAILY TOP Last administered on 04/17/16 08:51; Admin Dose 1 APPLIC; Start 04/15/16 at 13:00 Oxycodone/ Acetaminophen (Percocet (5/ 325)) 1 tab Q4H PRN PO PAIN; Start 04/17 at 14:30 Oxycodone/ Acetaminophen (Percocet (5/ 325)) 2 tab Q4H PRN PO PAIN; Start 04/17 at 14:30 GLORY CHEW Apr 17, 2016 15:34
[2016-04-17] MEDS: MAGNESIUM HYDROXIDE 30ML CUP PO PRN (17:10)
--- NOTE | 2016-04-17 17:54 | PN ---
Date/Time of Note Date/Time of Note DATE: 04/17/16 TIME: 17:52 Assessment/Plan Lines/Catheters IV Catheter Type (from Nrs): Saline Lock Coates in Place (from Nrs): No Assessment/Plan Assessment/Plan [facility] Progress Note Date of Service: 04/17/16 Today's Impression & Plan: Overall stable and doing remarkably well given the degree of complexity of the operation. No obvious evidence of major postoperative complication or any wound problems. Ostomy appears to be viable and + bowel activity. Awaiting further increase in physical activity. Official drain fluid Cr still pending, but after I saw the patient today, we did a spot check in our laboratory and the value is very similar to serum Cr, indicating no major evidence for urine leak. Likely lymphatic drainage and should stop after d/c drain. Urine in bag dowling yellow without any hind of red. Progressing through conversion to orals. With above assessment, I've recommended the following for today: 1. Increase activity 2. Increase incentive spirometry 3. Cont. PT OT eval 4. Will d/c drain tomorrow 5. Ostomy care 6. Reg diet 7. Discontinue Coates 9. D/c planning; likely for tomorrow Thank you again for your great care of this very pleasant patient and wonderful family. If there are any questions, please feel free to call me at [phone]. TOTAL VISIT TIME: 20 minutes of which more than half was spent in [id number] discussion with the patient, possibly including family, as well as coordination of care between multiple physicians and providers. Disclaimer: Inadvertent spelling or grammatical errors are likely due to EHR/ dictation software use and do not reflect on the overall quality of patient care. Updated Clinical Summary: The patient is a very pleasant 65-year-old gentleman with comorbidities including hypertension, who was initially admitted to [facility] through ED on 2015 with signs and symptoms consistent with anemia that eventually was shown to be a large, nearly obstructing mass approximately 12 cm from the anal verge up to the area of the rectosigmoid junction on colonoscopy 06/07/2015. Plan at that time was neoadjuvant treatment with chemoradiation followed by restaging and surgical resection. Patient underwent radiation therapy (Dr. Aranda) that ended September 2015 (patient's recollection was November 2015). Discussions with multiple colleagues revealed evidence that the patient had been not following instructions and there were barriers to get the patient to surgical intervention. At least part of the barriers were due to patient factors alone. Patient reported having contacted my office approximately 5 times to try and make an appointment and was told that we "do not accept" his insurance. Careful review of office records showed no documentation of patient calling. Patient also believed that he had had [employer] as his insurance carrier, but his insurance carrier was [employer] (accepted by our program). Patient re-presented to [facility] through ED with constipation, vomiting, abdominal distension and dilated loops of small intestine on 04/01/16. Significant comorbidities included not insignificant malnutrition with BMI 15.8 and dehydration, albumin of 3.6 in the setting of inability to feed enterically. Small area of liver in segment 6 and two very small areas in segment 4a of questionable significance (too small to tell) benign path vs. metastatic disease. We attempted to treat the bowel obstruction with nonoperative management with the hope that the patient would be able to increase his oral intake and improve his nutritional status prior to potentially getting systemic chemotherapy in the neoadjuvant fashion before surgical intervention. Patient very clearly showed us that his bowels were not able to tolerate any meaningful amount of nutritional intake after a few days of this management and for this reason, and after a multidisciplinary discussion, we decided to change our treatment strategy and take the patient to the operating room. List of operative interventions on 04/12/16: 1. Laparoscopic exploration converted to open exploration 2. Partial colectomy with removal of upper part of rectum and sigmoid colon ( modifier 22) 3. Resection of the end of terminal ileum along with cecum with primary anastomosis 4. Performance of an colostomy using distal descending colon 5. Extensive lysis of adhesions (at least 60 minutes) 6. Intraoperative ultrasound of the liver 7. Abdominal lavage Comorbidities: 1. Rectal malignancy, s/p chemotherapy and radiation June to Nov 2015; obstruction end of terminal ileum as well as at the level of the rectosigmoid junction with aggressive locally advanced rectal cancer; S/p an otherwise uncomplicated but challenging resection of both involved portions of rectosigmoid as well as terminal ileum in the setting of aggressive rectal cancer with local invasion of the pelvis on 04/13/16. 2. Hypertension 3. Cachexia; BMI 15.8; albumin of 3.6 in the setting of inability to feed enterically 4. Colonoscopy June 2015 5. Anxiety Subjective: No reported major events or complaints; no major abd pain and under control with medications; reports and feels ok; no nausea; no vomiting; no sob or cp; + flatus; + BM; minimal activity Objective: Vitals: See below Exam: GENERAL: On exam, the patient was laying in bed and appeared to be comfortable and in no acute distress. ABDOMEN: Soft, nontender and nondistended. There are no peritoneal signs or guarding. Incision dressings c/d/i w/o obvious underlying e/e/d/h. Ostomy pink, viable and productive. Drain pink. SKIN: Skin appears to be pink and feels warm to touch. NEUROLOGIC: Patient is awake, alert, and follows commands appropriately. Exam/Review of Systems Vital Signs Vitals Vital Signs Date Time Temp Pulse Resp B/P Pulse Ox O2 Delivery O2 Flow Rate FiO2 04/17/16 07:11 98.3 72 16 138/67 98 04/15/16 22:58 Room Air Intake and Output 04/16/16 04/16/16 04/17/16 15:00 23:00 07:00 Intake Total 480 ml 320 ml Output Total 1060 ml 1070 ml Balance -580 ml -750 ml Results Result Diagram: 04/17/16 0421 04/17/16 0421 DIVINE BEY M.D. Apr 17, 2016 17:54
[2016-04-17 19:31] VITALS: BP 155/71; RESP 18
[2016-04-17] MEDS: OXYCODONE/ACETAMINOPHEN (5/325) TAB PO PRN ×2 (19:44→23:27)
[2016-04-17] MEDS: FAMOTIDINE 20 MG TAB PO SCH (20:55)
[2016-04-17 22:18] LABS: ADD UMIC YES; URINE BILIRUBIN (Dip) NEGATIVE (NEGATIVE); URINE BLOOD (Dip) 2+ (NEGATIVE); URINE COLOR LT. YELLOW (YELLOW); URINE GLUCOSE (Dip) NEGATIVE (NEGATIVE); URINE KETONES (Dip) NEGATIVE (NEGATIVE); URINE LEUKOCYTE ESTERASE (Dip) 3+ (NEGATIVE); URINE NITRITE (Dip) POSITIVE (NEGATIVE); URINE TOTAL PROTEIN (Dip) TRACE (NEGATIVE); URINE UROBILINOGEN (Dip) 0.2 E.U./dL (0.1-1.0)
[2016-04-17 23:52] LABS: BACTERIA,URINE MANY; SQUAMOUS EPITHELIAL CELL,UR FEW
[2016-04-18] MEDS: ZOLPIDEM 5 MG TAB PO PRN (01:44)
[2016-04-18] MEDS: OXYCODONE/ACETAMINOPHEN (5/325) TAB PO PRN ×2 (04:49→09:41)
[2016-04-18 06:00] LABS: POTASSIUM 3.7 mmol/L (3.5-5.1)
[2016-04-18 06:03] LABS: CALCIUM 7.3 mg/dl (8.4-10.2); CREATININE 0.48 mg/dl (0.61-1.24)
[2016-04-18 06:10] LABS: BASOPHILS % 0.3 % (0.0-2.0); EOSINOPHILS # 0.1 10^3/ul (0.0-0.5); EOSINOPHILS % 0.9 % (0.0-7.0); HEMATOCRIT 25.5 % (42.0-52.0); HEMOGLOBIN 8.4 g/dl (14.0-18.0); LYMPHOCYTES # 0.9 10^3/ul (0.8-2.9); LYMPHOCYTES % 11.1 % (15.0-51.0); MEAN CORPUSCULAR HEMOGLOBIN 23.4 pg (29.0-33.0); MEAN CORPUSCULAR HGB CONC 33.1 g/dl (32.0-37.0); MEAN CORPUSCULAR VOLUME 70.6 fl (82.0-101.0); MEAN PLATELET VOLUME 6.9 fl (7.4-10.4); MONOCYTE # 0.6 10^3/ul (0.3-0.9); NEUTROPHIL # 6.1 10^3/ul (1.6-7.5); NEUTROPHILS % 79.7 % (39.0-77.0); PLATELET COUNT 499 10^3/UL (140-440); RED BLOOD COUNT 3.62 10^6/ul (4.70-6.10); RED CELL DISTRIBUTION WIDTH 20.1 % (11.5-14.5); UNCORRECTED WBC 7.7 10^3/ul (4.8-10.8); WHITE BLOOD COUNT 7.7 10^3/ul (4.8-10.8)
[2016-04-18 06:14] LABS: CONDITION 1; LH ANALYZER COMMENTS 1
[2016-04-18] MEDS: MAGNESIUM HYDROXIDE 30ML CUP PO PRN (06:14)
[2016-04-18] MEDS: DOCUSATE SODIUM 100 MG CAP PO PRN ×2 (06:14→20:31)
[2016-04-18 08:05] VITALS: BP 157/75; RESP 20
[2016-04-18] MEDS: FERROUS SULFATE (EC) 325 MG TAB PO SCH ×3 (09:41→20:31)
[2016-04-18] MEDS: COLLAGENASE 30 GM TUBE TOP SCH (09:44)
[2016-04-18] MEDS: HYDROmorphONE 1 MG/ML SYG IV PRN ×4 (11:05→21:52)
[2016-04-18] MEDS: CIPROFLOXACIN 400MG/D5W 200 ML IVPB SCH ×2 (13:21→20:30)
[2016-04-18] MEDS: PHENAZOPYRIDINE 200 MG TAB PO SCH ×2 (13:39→20:31)
--- NOTE | 2016-04-18 14:51 | PN ---
Date/Time of Note Date/Time of Note DATE: 04/18/16 TIME: 14:45 Assessment/Plan Lines/Catheters IV Catheter Type (from Nrs): Saline Lock Coates in Place (from Nrs): No Assessment/Plan Assessment/Plan [facility] Progress Note Date of Service: 04/18/16 Today's Impression & Plan: Overall stable and doing remarkably well given the degree of complexity of the operation. No obvious evidence of major postoperative complication or any wound problems. Ostomy appears to be viable and + bowel activity. Awaiting further increase in physical activity. Drain d/c'd today at bedside. Progressing through conversion to orals. As expected, there is and will be some clear fluid drainage into the remainder of rectum given the incomplete closure of site of cancer. Most of this fluid will be absorbed by the patient's own body, but we expect that he will have intermittent diarrhea-like outputs. We expect this to get better overtime, with improvement in nutritional state and hopefully, with chemotherapy. Patient overly anxious, as we are getting closer to point of discharge. Likely multifactorial. Will likely not be able to do well at home. Recommend usp/rehab for short term. Discussed with patient and answered all questions. With above assessment, I've recommended the following for today: 1. Increase activity 2. Increase incentive spirometry 3. Cont. PT OT eval 4. Social work and case management to please see patient again and initiate SNF /rehab placement (? possibility of inpatient rehab) 5. Ostomy care 6. Reg diet 7. D/c planning as soon as medically stable Thank you again for your great care of this very pleasant patient and wonderful family. If there are any questions, please feel free to call me at [phone]. TOTAL VISIT TIME: 20 minutes of which more than half was spent in [id number] discussion with the patient, possibly including family, as well as coordination of care between multiple physicians and providers. Disclaimer: Inadvertent spelling or grammatical errors are likely due to EHR/ dictation software use and do not reflect on the overall quality of patient care. Updated Clinical Summary: The patient is a very pleasant 65-year-old gentleman with comorbidities including hypertension, who was initially admitted to [facility] through ED on 2015 with signs and symptoms consistent with anemia that eventually was shown to be a large, nearly obstructing mass approximately 12 cm from the anal verge up to the area of the rectosigmoid junction on colonoscopy 06/07/2015. Plan at that time was neoadjuvant treatment with chemoradiation followed by restaging and surgical resection. Patient underwent radiation therapy (Dr. Aranda) that ended September 2015 (patient's recollection was November 2015). Discussions with multiple colleagues revealed evidence that the patient had been not following instructions and there were barriers to get the patient to surgical intervention. At least part of the barriers were due to patient factors alone. Patient reported having contacted my office approximately 5 times to try and make an appointment and was told that we "do not accept" his insurance. Careful review of office records showed no documentation of patient calling. Patient also believed that he had had [employer] as his insurance carrier, but his insurance carrier was [email or web address] (accepted by our program). Patient re-presented to [facility] through ED with constipation, vomiting, abdominal distension and dilated loops of small intestine on 04/01/16. Significant comorbidities included not insignificant malnutrition with BMI 15.8 and dehydration, albumin of 3.6 in the setting of inability to feed enterically. Small area of liver in segment 6 and two very small areas in segment 4a of questionable significance (too small to tell) benign path vs. metastatic disease. We attempted to treat the bowel obstruction with nonoperative management with the hope that the patient would be able to increase his oral intake and improve his nutritional status prior to potentially getting systemic chemotherapy in the neoadjuvant fashion before surgical intervention. Patient very clearly showed us that his bowels were not able to tolerate any meaningful amount of nutritional intake after a few days of this management and for this reason, and after a multidisciplinary discussion, we decided to change our treatment strategy and take the patient to the operating room. List of operative interventions on 04/12/16: 1. Laparoscopic exploration converted to open exploration 2. Partial colectomy with removal of upper part of rectum and sigmoid colon ( modifier 22) 3. Resection of the end of terminal ileum along with cecum with primary anastomosis 4. Performance of an colostomy using distal descending colon 5. Extensive lysis of adhesions (at least 60 minutes) 6. Intraoperative ultrasound of the liver 7. Abdominal lavage Comorbidities: 1. Rectal malignancy, s/p chemotherapy and radiation June to Nov 2015; obstruction end of terminal ileum as well as at the level of the rectosigmoid junction with aggressive locally advanced rectal cancer; S/p an otherwise uncomplicated but challenging resection of both involved portions of rectosigmoid as well as terminal ileum in the setting of aggressive rectal cancer with local invasion of the pelvis on 04/13/16. 2. Hypertension 3. Cachexia; BMI 15.8; albumin of 3.6 in the setting of inability to feed enterically 4. Colonoscopy June 2015 5. Anxiety Subjective: No reported major events or complaints; concerns about nursing care last night; no major abd pain and under control with medications, although still on IV narcotics despite several attempts to completely wean him off to orals; reports and feels ok; no nausea; no vomiting; no sob or cp; + flatus; + BM; increasing activity Objective: Vitals: See below Exam: GENERAL: On exam, the patient was laying in bed and appeared to be comfortable and in no acute distress. ABDOMEN: Soft, nontender and nondistended. There are no peritoneal signs or guarding. Incision dressings c/d/i w/o obvious underlying e/e/d/h. Ostomy pink, viable and productive. Drain pink. D/c'd at bedside without any difficulty. SKIN: Skin appears to be pink and feels warm to touch. NEUROLOGIC: Patient is awake, alert, and follows commands appropriately. Exam/Review of Systems Vital Signs Vitals Vital Signs Date Time Temp Pulse Resp B/P Pulse Ox O2 Delivery O2 Flow Rate FiO2 04/18/16 08:05 98.2 82 20 157/75 97 04/15/16 22:58 Room Air Intake and Output 04/17/16 04/17/16 04/18/16 15:00 23:00 07:00 Intake Total 700 ml 1220 ml Output Total 2850 ml 1930 ml Balance -2150 ml -710 ml Results Result Diagram: 04/18/16 0455 04/18/16 0455 DIVINE BEY M.D. Apr 18, 2016 14:51
--- NOTE | 2016-04-18 15:17 | PN ---
Date/Time of Note Date/Time of Note DATE: 04/18/16 TIME: 15:11 Assessment/Plan VTE Prophylaxis VTE Prophylaxis Intervention: SCD's Lines/Catheters IV [facility]ter Type (from [facility]): Saline Lock Urinary Cath still in place: No Assessment/Plan Chief Complaint/Hosp Course Assessment and plan 1. Abdominal pain likely secondary to ileus. Patient status post resection of terminal ileum and cecum with primary anastomosis we also resection of sigmoid colon and placement of colostomy on 04/12/2016. Continue postop care. Continue with wound care. 2. Ulcerative esophagitis. cont PPI 3. Gastritis. Continue on PPI 4. Moderately differentiated carcinoma of the rectum. Vision status post resection of terminal ileum and cecum with primary anastomosis. Colostomy now in place. Continue with oncology and surgical recommendations. 5. Iron deficiency anemia. Continue iron supplement 6. Essential hypertension. Provide with antihypertensives as needed. Stable at present 7. Depression. We'll start patient on duloxetine 8. UTI. preliminary showed gram negative bacteria. start on cipro. follow up on final culture. pyridium added for dysuria DVT prophylaxis: SCDs GERD prophylaxis: PPI Disposition and plan: follow up on final urine culture. start on abx. plan for possible snf placement Discussed plan of care with Dr. Roberts Problems: Subjective 24 Hr Interval Summary Free Text/Dictation still reports general weakness. reports dysuria Exam/Review of Systems Vital Signs Vitals Vital Signs Date Time Temp Pulse Resp B/P Pulse Ox O2 Delivery O2 Flow Rate FiO2 04/18/16 08:05 98.2 82 20 157/75 97 04/15/16 22:58 Room Air Intake and Output 04/17/16 04/17/16 04/18/16 14:59 22:59 06:59 Intake Total 700 ml 1220 ml Output Total 50 ml 2850 ml 1930 ml Balance -50 ml -2150 ml -710 ml Exam General: Appears depressed. Frail in appearance Eyes: pupils equal round, Anicteric sclera Neck: Supple nontender, no JVD Cardiac: S1, S2 auscultated, regular rhythm and rate Pulmonary: No coarse rhonchi or breathing auscultated GI: [Colostomy site on left abdominal quadrant Extremities: No edema bilateral lower extremities Skin: [Decubitus ulcer Neurologic: Alert to person place and time and situation Results Result Diagram: 04/18/16 0455 04/18/16 0455 Results 24 hrs Laboratory Tests Test 04/17/16 20:06 04/18/16 04:55 Urine Bacteria MANY Urine Bilirubin NEGATIVE Urine Clarity CLOUDY H Urine Color LT. YELLOW Urine Glucose NEGATIVE Urine Hemoglobin 2+ H Urine Ketones NEGATIVE Urine Leukocyte Esterase 3+ H Urine Microscopic RBC 2-5 Urine Microscopic WBC 25-50 Urine Nitrite POSITIVE H Urine Specific Reading 1.015 Urine Squamous Epithelial Cells FEW Urine Total Protein TRACE Urine Urobilinogen 0.2 E.U./dL Urine pH 7.5 Anion Gap 7 L Basophils # 0.0 Basophils % 0.3 Blood Morphology Comment Blood Urea Nitrogen 6 L Calcium Level 7.3 L Carbon Dioxide Level 30 Chloride Level 100 Creatinine 0.48 L Eosinophils # 0.1 Eosinophils % 0.9 Glucose Level 81 Hematocrit 25.5 L Hemoglobin 8.4 L Lymphocytes # 0.9 Lymphocytes % 11.1 L Mean Corpuscular Hemoglobin 23.4 L Mean Corpuscular Hemoglobin Concent 33.1 Mean Corpuscular Volume 70.6 L Mean Platelet Volume 6.9 L Monocytes # 0.6 Monocytes % 8.0 Neutrophils # 6.1 Neutrophils % 79.7 H Nucleated Red Blood Cells # 0.0 Nucleated Red Blood Cells % 0.0 Platelet Count 499 H Potassium Level 3.7 Red Blood Count 3.62 L Red Cell Distribution Width 20.1 H Sodium Level 133 L White Blood Count 7.7 # Medications Medications Current Medications Ondansetron HCl (Zofran Inj) 4 mg Q6H PRN IV NAUSEA AND/OR VOMITING Last administered on 04/16/16 12:31; Admin Dose 4 MG; Start 04/01/16 at 19:30 Acetaminophen (Tylenol Tab) 650 mg Q6H PRN PO PAIN LEVEL 1-3 OR FEVER Last administered on 04/03/16 19:12; Admin Dose 650 MG; Start 04/01/16 at 19:30 Magnesium Hydroxide (Milk Of Mag) 30 ml DAILY PRN PO CONSTIPATION Last administered on 04/18/16 06:14; Admin Dose 30 ML; Start 04/01/16 at 19:30 Lorazepam (Ativan) 0.5 mg Q6H PRN IV ANXIETY Last administered on 04/15/16 05: 33; Admin Dose 0.5 MG; Start 04/01/16 at 19:30 Hydralazine HCl (Apresoline) 10 mg Q6H PRN IV ELEVATED BLOOD PRESSURE; Start at 19:30 Nitroglycerin (Nitroglycerin (Sl Tab) 0.4 Mg) 1 tab Q5M PRN SL ANGINA; Start at 19:30 Ferrous Sulfate (Ferrous Sulfate (Ec)) 325 mg TID PO Last administered on 13:21; Admin Dose 325 MG; Start 04/04/16 at 13:00 Acetaminophen/ Hydrocodone Bitart ([place] (5/325)) 1 tab Q4H PRN PO PAIN LEVEL 4 -7; Start 04/12/16 at 15:00 Acetaminophen/ Hydrocodone Bitart ([place] (5/325)) 2 tab Q4H PRN PO PAIN LEVEL 7 -10 Last administered on 04/17/16 08:50; Admin Dose 2 TAB; Start 04/12/16 at 15 :00 Hydromorphone HCl (Dilaudid) 0.5 mg Q2 PRN IV PAIN; Start 04/12/16 at 15:00 Hydromorphone HCl (Dilaudid) 1 mg Q2 PRN IV PAIN Last administered on 13:40; Admin Dose 1 MG; Start 04/12/16 at 15:00 Docusate Sodium (Colace) 100 mg BID PRN PO CONSTIPATION Last administered on 06:14; Admin Dose 100 MG; Start 04/12/16 at 15:00 Bisacodyl (Dulcolax Supp) 10 mg BID PRN [place] CONSTIPATION; Start 04/12/16 at 15: 00 Famotidine (Pepcid) 40 mg HS PO Last administered on 04/17/16 20:55; Admin Dose 40 MG; Start 04/14/16 at 21:00 Collagenase (Santyl) 1 applic DAILY TOP Last administered on 04/18/16 09:44; Admin Dose 1 APPLIC; Start 04/15/16 at 13:00 Oxycodone/ Acetaminophen (Percocet (5/ 325)) 1 tab Q4H PRN PO PAIN; Start 04/17 at 14:30 Oxycodone/ Acetaminophen 2 tab 2 tab Q4H PRN PO PAIN Last administered on 09:41; Admin Dose 2 TAB; Start 04/17/16 at 14:30 Ciprofloxacin/ Dextrose (Cipro Ivpb) 200 ml @ 200 mls/hr Q12 IVPB Last administered on 04/18/16 13:21; Admin Dose 200 MLS/HR; Start 04/18/16 at 13:00 Phenazopyridine HCl (Pyridium) 200 mg TID PO Last administered on 04/18/16 13: 39; Admin Dose 200 MG; Start 04/18/16 at 14:00 GLORY CHEW Apr 18, 2016 15:17
--- NOTE | 2016-04-18 18:01 | CONS ---
Date/Time of Note Date/Time of Note DATE: 04/17/16 TIME: 18:00 VK LE Assessment/Plan Assessment/Plan Chief Complaint/Hosp Course ABD PAIN, vomiting, and constipation- SBO VS ILEUS post SURGERY await path RECTAL ADENOCARCINOMA- POST chemo/xrt CEA-N AWAIT PATH SEVERE IRON DEFICIENCY WITH Microcytic, hypochromic anemia. MONITOR BLOOD COUNT CLOSELY h/h- dropping no bleeding on IV IRON PRBC PRN Distal esophagitis with gastritis. Continue proton pump inhibitors. HTN POOR COMPLIANCE Problems: Consultation Date/Type/Reason Admit Date/Time Apr 01, 2016 at 18:54 Type of Consultation: HEMEON Referring Provider: LINDA WALDROP MD 24 HR Interval Summary Free Text/Dictation DOING WELL RECOVERING POSTOP Exam/Review of Systems Vital Signs Vitals Vital Signs Date Time Temp Pulse Resp B/P Pulse Ox O2 Delivery O2 Flow Rate FiO2 04/18/16 08:05 98.2 82 20 157/75 97 04/15/16 22:58 Room Air Intake and Output 04/17/16 04/17/16 04/18/16 14:59 22:59 06:59 Intake Total 700 ml 1220 ml Output Total 50 ml 2850 ml 1930 ml Balance -50 ml -2150 ml -710 ml Exam General: Appears depressed. Frail in appearance Eyes: pupils equal round, Anicteric sclera Neck: Supple nontender, no JVD Cardiac: S1, S2 auscultated, regular rhythm and rate Pulmonary: No coarse rhonchi or breathing auscultated GI: [Colostomy site on left abdominal quadrant Extremities: No edema bilateral lower extremities Skin: [Decubitus ulcer Neurologic: Alert to person place and time and situation Results Result Diagram: 04/18/16 0455 04/18/16 0455 Results 24 hrs Laboratory Tests Test 04/17/16 20:06 04/18/16 04:55 Urine Bacteria MANY Urine Bilirubin NEGATIVE Urine Clarity CLOUDY H Urine Color LT. YELLOW Urine Glucose NEGATIVE Urine Hemoglobin 2+ H Urine Ketones NEGATIVE Urine Leukocyte Esterase 3+ H Urine Microscopic RBC 2-5 Urine Microscopic WBC 25-50 Urine Nitrite POSITIVE H Urine Specific [place] 1.015 Urine Squamous Epithelial Cells FEW Urine Total Protein TRACE Urine Urobilinogen 0.2 E.U./dL Urine pH 7.5 Anion Gap 7 L Basophils # 0.0 Basophils % 0.3 Blood Morphology Comment Blood Urea Nitrogen 6 L Calcium Level 7.3 L Carbon Dioxide Level 30 Chloride Level 100 Creatinine 0.48 L Eosinophils # 0.1 Eosinophils % 0.9 Glucose Level 81 Hematocrit 25.5 L Hemoglobin 8.4 L Lymphocytes # 0.9 Lymphocytes % 11.1 L Mean Corpuscular Hemoglobin 23.4 L Mean Corpuscular Hemoglobin Concent 33.1 Mean Corpuscular Volume 70.6 L Mean Platelet Volume 6.9 L Monocytes # 0.6 Monocytes % 8.0 Neutrophils # 6.1 Neutrophils % 79.7 H Nucleated Red Blood Cells # 0.0 Nucleated Red Blood Cells % 0.0 Platelet Count 499 H Potassium Level 3.7 Red Blood Count 3.62 L Red Cell Distribution Width 20.1 H Sodium Level 133 L White Blood Count 7.7 # Medications Medications Current Medications Ondansetron HCl (Zofran Inj) 4 mg Q6H PRN IV NAUSEA AND/OR VOMITING Last administered on 04/16/16 12:31; Admin Dose 4 MG; Start 04/01/16 at 19:30 Acetaminophen (Tylenol Tab) 650 mg Q6H PRN PO PAIN LEVEL 1-3 OR FEVER Last administered on 04/03/16 19:12; Admin Dose 650 MG; Start 04/01/16 at 19:30 Magnesium Hydroxide (Milk Of Mag) 30 ml DAILY PRN PO CONSTIPATION Last administered on 04/18/16 06:14; Admin Dose 30 ML; Start 04/01/16 at 19:30 Lorazepam (Ativan) 0.5 mg Q6H PRN IV ANXIETY Last administered on 04/15/16 05: 33; Admin Dose 0.5 MG; Start 04/01/16 at 19:30 Hydralazine HCl (Apresoline) 10 mg Q6H PRN IV ELEVATED BLOOD PRESSURE; Start at 19:30 Nitroglycerin (Nitroglycerin (Sl Tab) 0.4 Mg) 1 tab Q5M PRN SL ANGINA; Start at 19:30 Ferrous Sulfate (Ferrous Sulfate (Ec)) 325 mg TID PO Last administered on 13:21; Admin Dose 325 MG; Start 04/04/16 at 13:00 Acetaminophen/ Hydrocodone Bitart ([place] (5/325)) 1 tab Q4H PRN PO PAIN LEVEL 4 -7; Start 04/12/16 at 15:00 Acetaminophen/ Hydrocodone Bitart ([place] (5/325)) 2 tab Q4H PRN PO PAIN LEVEL 7 -10 Last administered on 04/17/16 08:50; Admin Dose 2 TAB; Start 04/12/16 at 15 :00 Hydromorphone HCl (Dilaudid) 0.5 mg Q2 PRN IV PAIN; Start 04/12/16 at 15:00 Hydromorphone HCl (Dilaudid) 1 mg Q2 PRN IV PAIN Last administered on 13:40; Admin Dose 1 MG; Start 04/12/16 at 15:00 Docusate Sodium (Colace) 100 mg BID PRN PO CONSTIPATION Last administered on 06:14; Admin Dose 100 MG; Start 04/12/16 at 15:00 Bisacodyl (Dulcolax Supp) 10 mg BID PRN [place] CONSTIPATION; Start 04/12/16 at 15: 00 Famotidine (Pepcid) 40 mg HS PO Last administered on 04/17/16 20:55; Admin Dose 40 MG; Start 04/14/16 at 21:00 Collagenase (Santyl) 1 applic DAILY TOP Last administered on 04/18/16 09:44; Admin Dose 1 APPLIC; Start 04/15/16 at 13:00 Oxycodone/ Acetaminophen (Percocet (5/ 325)) 1 tab Q4H PRN PO PAIN; Start 04/17 at 14:30 Oxycodone/ Acetaminophen 2 tab 2 tab Q4H PRN PO PAIN Last administered on 09:41; Admin Dose 2 TAB; Start 04/17/16 at 14:30 Ciprofloxacin/ Dextrose (Cipro Ivpb) 200 ml @ 200 mls/hr Q12 IVPB Last administered on 04/18/16 13:21; Admin Dose 200 MLS/HR; Start 04/18/16 at 13:00 Phenazopyridine HCl (Pyridium) 200 mg TID PO Last administered on 04/18/16 13: 39; Admin Dose 200 MG; Start 04/18/16 at 14:00 Al Hydrox/Mg Hydrox/Simethicone (Mag-Al Plus) 30 ml QID PRN PO GASTROINTESTINAL UPSET; Start 04/18/16 at 17:30; Status UNV JASMINA PALOMARES MD Apr 18, 2016 18:01
--- NOTE | 2016-04-18 18:01 | CONS ---
Date/Time of Note Date/Time of Note DATE: 04/18/16 TIME: 18:01 Assessment/Plan Assessment/Plan Chief Complaint/Hosp Course COLORECTAL CANCER Rectal malignancy, s/p chemotherapy and radiation June to Nov 2015; obstruction end of terminal ileum as well as at the level of the rectosigmoid junction with aggressive locally advanced rectal cancer; S/p an otherwise uncomplicated resection of both involved portions of rectosigmoid as well as terminal ileum in the setting of aggressive rectal cancer with local invasion of the pelvis on 04/13/16. path- pT4b pN0, c/w locally extensive dis CEA-N NONCOMPLIANT WITH SURGICAL F-UP in the past WILL DISCUSS FURTHER Treatment with team SEVERE IRON DEFICIENCY WITH Microcytic, hypochromic anemia. MONITOR BLOOD COUNT CLOSELY h/h- dropping no bleeding on IV IRON PRBC PRN Distal esophagitis with gastritis. Continue proton pump inhibitors. HTN POOR COMPLIANCE Problems: Consultation Date/Type/Reason Admit Date/Time Apr 01, 2016 at 18:54 Type of Consultation: HEMEON Referring Provider: LINDA WALDROP MD 24 HR Interval Summary Free Text/Dictation recovering well postop drain removed Exam/Review of Systems Vital Signs Vitals Vital Signs Date Time Temp Pulse Resp B/P Pulse Ox O2 Delivery O2 Flow Rate FiO2 04/18/16 08:05 98.2 82 20 157/75 97 04/15/16 22:58 Room Air Intake and Output 04/17/16 04/17/16 04/18/16 14:59 22:59 06:59 Intake Total 700 ml 1220 ml Output Total 50 ml 2850 ml 1930 ml Balance -50 ml -2150 ml -710 ml Exam General: Appears depressed. Frail in appearance Eyes: pupils equal round, Anicteric sclera Neck: Supple nontender, no JVD Cardiac: S1, S2 auscultated, regular rhythm and rate Pulmonary: No coarse rhonchi or breathing auscultated GI: [Colostomy site on left abdominal quadrant Extremities: No edema bilateral lower extremities Skin: [Decubitus ulcer Neurologic: Alert to person place and time and situation Results Result Diagram: 04/18/16 0455 04/18/16 0455 Results 24 hrs Laboratory Tests Test 04/17/16 20:06 04/18/16 04:55 Urine Bacteria MANY Urine Bilirubin NEGATIVE Urine Clarity CLOUDY H Urine Color LT. YELLOW Urine Glucose NEGATIVE Urine Hemoglobin 2+ H Urine Ketones NEGATIVE Urine Leukocyte Esterase 3+ H Urine Microscopic RBC 2-5 Urine Microscopic WBC 25-50 Urine Nitrite POSITIVE H Urine Specific [place] 1.015 Urine Squamous Epithelial Cells FEW Urine Total Protein TRACE Urine Urobilinogen 0.2 E.U./dL Urine pH 7.5 Anion Gap 7 L Basophils # 0.0 Basophils % 0.3 Blood Morphology Comment Blood Urea Nitrogen 6 L Calcium Level 7.3 L Carbon Dioxide Level 30 Chloride Level 100 Creatinine 0.48 L Eosinophils # 0.1 Eosinophils % 0.9 Glucose Level 81 Hematocrit 25.5 L Hemoglobin 8.4 L Lymphocytes # 0.9 Lymphocytes % 11.1 L Mean Corpuscular Hemoglobin 23.4 L Mean Corpuscular Hemoglobin Concent 33.1 Mean Corpuscular Volume 70.6 L Mean Platelet Volume 6.9 L Monocytes # 0.6 Monocytes % 8.0 Neutrophils # 6.1 Neutrophils % 79.7 H Nucleated Red Blood Cells # 0.0 Nucleated Red Blood Cells % 0.0 Platelet Count 499 H Potassium Level 3.7 Red Blood Count 3.62 L Red Cell Distribution Width 20.1 H Sodium Level 133 L White Blood Count 7.7 # Medications Medications Current Medications Ondansetron HCl (Zofran Inj) 4 mg Q6H PRN IV NAUSEA AND/OR VOMITING Last administered on 04/16/16 12:31; Admin Dose 4 MG; Start 04/01/16 at 19:30 Acetaminophen (Tylenol Tab) 650 mg Q6H PRN PO PAIN LEVEL 1-3 OR FEVER Last administered on 04/03/16 19:12; Admin Dose 650 MG; Start 04/01/16 at 19:30 Magnesium Hydroxide (Milk Of Mag) 30 ml DAILY PRN PO CONSTIPATION Last administered on 04/18/16 06:14; Admin Dose 30 ML; Start 04/01/16 at 19:30 Lorazepam (Ativan) 0.5 mg Q6H PRN IV ANXIETY Last administered on 04/15/16 05: 33; Admin Dose 0.5 MG; Start 04/01/16 at 19:30 Hydralazine HCl (Apresoline) 10 mg Q6H PRN IV ELEVATED BLOOD PRESSURE; Start at 19:30 Nitroglycerin (Nitroglycerin (Sl Tab) 0.4 Mg) 1 tab Q5M PRN SL ANGINA; Start at 19:30 Ferrous Sulfate (Ferrous Sulfate (Ec)) 325 mg TID PO Last administered on 13:21; Admin Dose 325 MG; Start 04/04/16 at 13:00 Acetaminophen/ Hydrocodone Bitart ([place] (5/325)) 1 tab Q4H PRN PO PAIN LEVEL 4 -7; Start 04/12/16 at 15:00 Acetaminophen/ Hydrocodone Bitart ([place] (5/325)) 2 tab Q4H PRN PO PAIN LEVEL 7 -10 Last administered on 04/17/16 08:50; Admin Dose 2 TAB; Start 04/12/16 at 15 :00 Hydromorphone HCl (Dilaudid) 0.5 mg Q2 PRN IV PAIN; Start 04/12/16 at 15:00 Hydromorphone HCl (Dilaudid) 1 mg Q2 PRN IV PAIN Last administered on 13:40; Admin Dose 1 MG; Start 04/12/16 at 15:00 Docusate Sodium (Colace) 100 mg BID PRN PO CONSTIPATION Last administered on 06:14; Admin Dose 100 MG; Start 04/12/16 at 15:00 Bisacodyl (Dulcolax Supp) 10 mg BID PRN [place] CONSTIPATION; Start 04/12/16 at 15: 00 Famotidine (Pepcid) 40 mg HS PO Last administered on 04/17/16 20:55; Admin Dose 40 MG; Start 04/14/16 at 21:00 Collagenase (Santyl) 1 applic DAILY TOP Last administered on 04/18/16 09:44; Admin Dose 1 APPLIC; Start 04/15/16 at 13:00 Oxycodone/ Acetaminophen (Percocet (5/ 325)) 1 tab Q4H PRN PO PAIN; Start 04/17 at 14:30 Oxycodone/ Acetaminophen 2 tab 2 tab Q4H PRN PO PAIN Last administered on 09:41; Admin Dose 2 TAB; Start 04/17/16 at 14:30 Ciprofloxacin/ Dextrose (Cipro Ivpb) 200 ml @ 200 mls/hr Q12 IVPB Last administered on 04/18/16 13:21; Admin Dose 200 MLS/HR; Start 04/18/16 at 13:00 Phenazopyridine HCl (Pyridium) 200 mg TID PO Last administered on 04/18/16t 13: 39; Admin Dose 200 MG; Start 04/18/16 at 14:00 Al Hydrox/Mg Hydrox/Simethicone (Mag-Al Plus) 30 ml QID PRN PO GASTROINTESTINAL UPSET; Start 04/18/16 at 17:30; Status UNV Procedures Procedures [facility] [address] [place] [address] ; Lab No: [id number] Date: 04/12/2016 SPECIMEN: A-Proximal ileum margin B-Ileocecectomy C-Sigmoid colon D-Additional sigmoid colon CLINICAL: Colon cancer GROSS EXAMINATION: A-Received in formalin is a 4.2 cm segment of small intestine with a suture present to indicate the posterior margin that is closed with metallic miriam and is 3.5 cm in diameter and the proximal margin is closed with metallic miriam 3.0 cm in diameter. The serosa is diaz-pink, smooth and glistening. The serosa is diaz-pink and smooth with no hemorrhage or necrosis and no exudate or perforation. Opening reveals a patent lumen containing diaz-brown stool, the mucosa is diaz-pink and unremarkable. Representatively sampled in four cassettes as follows: A1, shave of the proximal margin; A2, shave of the distal margin; A3 and A4, sections of mucosa and wall. B-Received in formalin is a 14.0 cm segment of terminal ileum with the proximal margin closed with metallic miriam 3.6 cm in diameter, and the attached cecum and portion of ascending colon measuring 7.0 cm from the ileocecal valve to the distal margin that is also closed with metallic miriam 4.3 cm in diameter. The serosa of the terminal ileum is diaz-pink and 3.0 cm from the ileocecal valve and 10.5 cm to the proximal margin there is an area of firm granular, diaz serosa measuring 1.5 cm in diameter. This area is inked blue.. The serosa of the cecum is normal and attached is the appendix 2.8 cm long, 0.4 cm in diameter. Opening the proximal terminal ileum reveals a dialated proxima segment with normal diaz mucosa and wall . 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 There is marked stenosis of the lumen and the tumor has a granular diaz surface. Sectioning reveals extension of the tumor through the musculari propria to the blue inked surface. Tumor measures 1.0 cm thick. The mucosa of the cecum and the ascending colon is diaz-pink, wrinkled and glistening with no focal lesions. Sectioning the mesentery adjacent to the terminal ileum reveals diaz-pink, wrinkled and glistening fibrofatty tissue and no lymph nodes are grossly identified. The pericolic adipose tissue attached to the cecum and ascending colon is scant at 0.7 cm wide and no lymph nodes are present. Representatively sampled in 19 cassettes as follows: B1, shave of the proximal margin; B2, shave of the distal colon margin; B3-B7, sections of the small intestine tumor full thickness with the wall and blue ink on the serosal surface; B8, section of the ileocecal valve with adjacent mucosa; B9, sections of the unremarkable appendix; B10 and B11, sections of cecum and ascending colon wall; B12 and B13, the mesentery section and totally submitted; B14-B19, the pericolic adipose tissue sectioned and totally submitted. C-Received in formalin is a segment of colon measuring 11.0 cm long. One margin of resection is stapled and 4.5 cm in diameter. The other margin is a blind end with only a pinpoint lumen that is barely probe patent. The distal margin measures 4.0 cm in diameter. The blind end is inked in orange prior to opening the specimen. Opening the colon reveals almost complete obliteration of the lumen at the blind end by firm, pale diaz to yellow-diaz tissue representing tumor. The tumor involves the mucosa and wall and measures approximately 2.0 x 1.5 x 1.5 cm. The mucosa in this area is granular and thickened. Tumor appears to grossly penetrate through the muscularis propria into pericolic soft tissue and may grossly extend to inked end of the specimen. The remaining mucosa is transversely wrinkled without additiona lesions and the wall and subserosa are normal. Multiple sections through the adipose tissue show no identifiable lymph nodes. Multiple sections through pericolic fat reveal no grossly identifiable lymph nodes. Optical Coating Technician sections taken as follows: C1, shave of blind end; C2, shave of margin closest to miriam; C3-C7, multiple transverse sections of the blind end with tumor and orange ink; C8-C11, multiple loss control representative sections of pericolic adipose tissue. D-Received in formalin is a 8.0 cm segment of colon with each margin closed with metallic miriam, each 3.5 cm in diameter and the serosa is diaz-pink, uniformly smooth and glistening. A suture at one stapled margin indicates proximal. No tumor, exudate or perforation is identified. Opening the specimen reveals edematous mucosa and no focal lesion or tumor. Opening reveals wrinkled, pink mucosa without lesions. Representatively sampled in four cassettes as follows: D1, shave of the proximal margin; D2, shave of the distal margin; D3 and D4, sections of mucosa and wall from the mid portion of the specimen. MICROSCOPIC DIAGNOSIS: A-Proximal ileal margin, segmental resection: -- Acute serositis, mild and focal. -- Patchy mild chronic inflammation within the muscularis propria, histologically nonspecific. -- There is no evidence of malignancy. B-Ileum and right colon, ileocecectomy: -- Adenocarcinoma, moderately differentiated, involving mucosa, muscularis propria and the visceral peritoneal surface of the ileum. -- No definite lymph vascular invasion is identified. -- Proximal ileal, distal colon and mesenteric margins are clear of carcinoma. -- Four mesenteric lymph nodes are negative for metastatic carcinoma (0/4). -- Appendix with diffuse fibrous obliteration of the mucosa. C-Sigmoid colon, segmental resection: -- Adenocarcinoma, moderately differentiated, diffusely involving mucosa, muscularis propria and pericolic adipose tissue, focally extending to the serosal surface. -- There is marked luminal stenosis by tumor. -- No lymphvascular invasion is identified. -- Tumor extends to the inked colon and pericolic margin of resection. The opposite stapled margin of resection is clear of tumor. -- No lymph nodes are identified in multiple loss control representative sections of pericolic adipose tissue. D-Additional sigmoid colon, segmental resection: -- Acute serositis, mild. -- There is no evidence of malignancy. SYNOPTIC CANCER CASE SUMMARY: SPECIMEN: Terminal ileum, cecum, proximal ascending colon and sigmoid colon. PROCEDURE: Ileocecectomy; sigmoid segmental resection. TUMOR SITES: Terminal ileum and sigmoid colon. TUMOR SIZE: Terminal ileum: 2.5 cm maximum size (x 2.0 x 1.8 cm). Sigmoid colon: 2.0 cm maximum size (x1.5 x 1.5 cm). HISTOLOGIC TYPE: Adenocarcinoma. HISTOLOGIC GRADE: Low grade (moderately differentiated). MICROSCOPIC TUMOR EXTENSION: Terminal ileum: Carcinoma involves mucosa, wall, subserosa and serosal surface. Sigmoid colon: Carcinoma involves mucosa, wall, subserosa and serosal surface. MARGINS: Ileocecectomy: Proximal ileal, distal cecal and mesenteric margins of resection are clear of carcinoma. Sigmoid colon: One margin of resection is involved by carcinoma; the opposite stapled margin is negative for tumor. LYMPH VASCULAR INVASION: Not identified. PERINEURAL INVASION: Not identified. TUMOR DEPOSITS: Not identified. LYMPH NODES: Numbers of lymph nodes examined: 4 (ileocecal mesentery). Number of lymph nodes involved by carcinoma: 0 (0-0/4). PATHOLOGIC STAGING (pTNM): pT4b pN0. MODIFIED ASTLER-COLLER STAGE: MAC B3 ADDITIONAL PATHOLOGIC FINDINGS: -- Appendix showing diffuse fibrous obliteration of the lumen. COMMENT: The diagnoses are discussed with Dr. Dustin Bey on 04/17/16. Based upon Dr. 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 This case has also been reviewed by Kimberly Carter M.D., who concurs with the above interpretation. ALFONZO/ARASELI/martha/stephanie Date of Service: 04/12/16; Date Received: 04/12/16 Dictated: 04/17/16; Transcribed: 04/18/16; Sent by Fax: 04/18/16; Reviewed: RAVI Orozco M.D. Pathologist Electronically Signed 04/18/2016 RUSS OROZCO M.D. PATIENT: CARA WILKINSON Recovery Room Nurse of Laboratory AGE/SEX/: 65/M 1950 MR NO: [id number] VISIT: [id number] ROOM NO: [facility] PHYSICIAN: Wu RAZO, Lilly BEY M.D., [facility] TISSUE EXAMINATION REPORT JASMINA PALOMARES MD Apr 18, 2016 18:01
[2016-04-18] MEDS: AL HYDROX/MG HYDROX/SIMETH 30 ML CUP PO PRN (18:17)
[2016-04-18 19:05] VITALS: BP 165/70; RESP 18
[2016-04-18] MEDS: FAMOTIDINE 20 MG TAB PO SCH (20:30)
[2016-04-19] MEDS: SOD FERRIC GLUC COMPLX 125 MG in SOD CHLORIDE 0.9% 100 ML IVPB SCH ×2 (00:20→22:43)
[2016-04-19] MEDS: ZOLPIDEM 5 MG TAB PO PRN (00:58)
[2016-04-19] MEDS: HYDROmorphONE 1 MG/ML SYG IV PRN ×7 (00:59→22:43)
[2016-04-19 06:17] LABS: BASOPHILS % 0.2 % (0.0-2.0); EOSINOPHILS # 0.1 10^3/ul (0.0-0.5); EOSINOPHILS % 0.9 % (0.0-7.0); HEMATOCRIT 23.9 % (42.0-52.0); HEMOGLOBIN 7.9 g/dl (14.0-18.0); LYMPHOCYTES % 15.3 % (15.0-51.0); MEAN CORPUSCULAR HEMOGLOBIN 23.3 pg (29.0-33.0); MEAN CORPUSCULAR VOLUME 70.7 fl (82.0-101.0); MEAN PLATELET VOLUME 6.8 fl (7.4-10.4); MONOCYTE # 0.5 10^3/ul (0.3-0.9); MONOCYTES % 7.8 % (0.0-11.0); NEUTROPHIL # 4.8 10^3/ul (1.6-7.5); NEUTROPHILS % 75.8 % (39.0-77.0); PLATELET COUNT 484 10^3/UL (140-440); RED BLOOD COUNT 3.38 10^6/ul (4.70-6.10); RED CELL DISTRIBUTION WIDTH 19.6 % (11.5-14.5); UNCORRECTED WBC 6.3 10^3/ul (4.8-10.8); WHITE BLOOD COUNT 6.3 10^3/ul (4.8-10.8)
[2016-04-19 06:21] LABS: POTASSIUM 3.5 mmol/L (3.5-5.1)
[2016-04-19 06:24] LABS: CREATININE 0.47 mg/dl (0.61-1.24)
[2016-04-19 06:27] LABS: CONDITION 1; LH ANALYZER COMMENTS 1
[2016-04-19 07:58] VITALS: BP 139/68; RESP 18
[2016-04-19] MEDS: COLLAGENASE 30 GM TUBE TOP SCH (09:18)
[2016-04-19] MEDS: CIPROFLOXACIN 400MG/D5W 200 ML IVPB SCH ×2 (09:18→20:17)
[2016-04-19] MEDS: PHENAZOPYRIDINE 200 MG TAB PO SCH ×3 (09:19→20:17)
[2016-04-19] MEDS ORDERED: CIPR500T4 PO (11:08)
[2016-04-19] MEDS ORDERED: PHEN-538 PO (11:08)
[2016-04-19] MEDS ORDERED: FER325 PO (11:08)
[2016-04-19] MEDS ORDERED: SAN30GM TOP (11:08)
[2016-04-19] MEDS ORDERED: PANT40TA3 PO (11:08)
[2016-04-19] MEDS ORDERED: HYDR-3498 PO (11:08)
[2016-04-19] MEDS ORDERED: ONDA-43 PO (11:08)
--- NOTE | 2016-04-19 11:13 | PDOCDIS ---
Discharge Instructions DIAGNOSIS Discharge Diagnosis: 1. Ileus 2. Moderately differentiated carcinoma of the rectum 3. Ulcerat CONDITION Patient Condition: Stable HOME CARE INSTRUCTIONS: Diet Instructions: Regular FOLLOW UP/APPOINTMENTS Appointments 1. Follow up with Dr. Kisha Zapien in one week 2. Follow up with Dr. Dustin Juárez in 1-2 weeks GLORY CHEW Apr 19, 2016 11:13
[2016-04-19] MEDS: HYDROCODONE/APAP (5/325) TAB PO PRN (12:10)
--- NOTE | 2016-04-19 13:53 | PN ---
Date/Time of Note Date/Time of Note DATE: 04/19/16 TIME: 13:52 Assessment/Plan VTE Prophylaxis VTE Prophylaxis Intervention: SCD's Lines/Catheters IV [facility] [place] [facility] Urinary Cath still in place: No Assessment/Plan Chief Complaint/Hosp Course Assessment and plan 1. Abdominal pain likely secondary to ileus. Patient status post resection of terminal ileum and cecum with primary anastomosis we also resection of sigmoid colon and placement of colostomy on 04/12/2016. Continue postop care. Continue with wound care. 2. Ulcerative esophagitis. cont PPI 3. Gastritis. Continue on PPI 4. Moderately differentiated carcinoma of the rectum. Vision status post resection of terminal ileum and cecum with primary anastomosis. Colostomy now in place. Continue with oncology and surgical recommendations. 5. Iron deficiency anemia. Continue iron supplement 6. Essential hypertension. Provide with antihypertensives as needed. Stable at present 7. Depression. cont on duloxetine DVT prophylaxis: SCDs GERD prophylaxis: PPI Disposition and plan: Continue with physical therapy. Tentative plan for care home facility placement. We'll follow-up with nurse outreach case manager. Discussed plan of care with Dr. Roberts Problems: Subjective 24 Hr Interval Summary Free Text/Dictation No apparent distress Exam/Review of Systems Vital Signs Vitals Vital Signs Date Time Temp Pulse Resp B/P Pulse Ox O2 Delivery O2 Flow Rate FiO2 04/19/16 07:58 97.8 70 18 139/68 97 04/15/16 22:58 Room Air Intake and Output 04/18/16 04/18/16 04/19/16 15:00 23:00 07:00 Intake Total 200 ml 840 ml 1510 ml Output Total 140 ml 550 ml 1580 ml Balance 60 ml 290 ml -70 ml Exam General: No apparent distress. Frail in appearance Eyes: pupils equal round, Anicteric sclera Neck: Supple nontender, no JVD Cardiac: S1, S2 auscultated, regular rhythm and rate Pulmonary: No coarse rhonchi or breathing auscultated GI: [Colostomy site on left abdominal quadrant Extremities: No edema bilateral lower extremities Skin: [Decubitus ulcer Neurologic: Alert to person place and time and situation Results Result Diagram: 04/19/16 0500 04/19/16 0500 Results 24 hrs Laboratory Tests Test 04/19/16 05:00 04/19/16 06:27 Anion Gap 7 L Basophils # 0.0 Basophils % 0.2 Blood Morphology Comment Blood Urea Nitrogen 8 Calcium Level 7.0 L Carbon Dioxide Level 28 Chloride Level 101 Creatinine 0.47 L Eosinophils # 0.1 Eosinophils % 0.9 Glucose Level 71 Hematocrit 23.9 L Hemoglobin 7.9 L Lymphocytes # 1.0 Lymphocytes % 15.3 Mean Corpuscular Hemoglobin 23.3 L Mean Corpuscular Hemoglobin Concent 33.0 Mean Corpuscular Volume 70.7 L Mean Platelet Volume 6.8 L Monocytes # 0.5 Monocytes % 7.8 Neutrophils # 4.8 Neutrophils % 75.8 Nucleated Red Blood Cells # 0.0 Nucleated Red Blood Cells % 0.0 Platelet Count 484 H Potassium Level 3.5 Red Blood Count 3.38 L Red Cell Distribution Width 19.6 H Sodium Level 132 L White Blood Count 6.3 Lab Scanned Report REFERENCE LAB Medications Medications Current Medications Ondansetron HCl (Zofran Inj) 4 mg Q6H PRN IV NAUSEA AND/OR VOMITING Last administered on 04/16/16 12:31; Admin Dose 4 MG; Start 04/01/16 at 19:30 Acetaminophen (Tylenol Tab) 650 mg Q6H PRN PO PAIN LEVEL 1-3 OR FEVER Last administered on 04/03/16 19:12; Admin Dose 650 MG; Start 04/01/16 at 19:30 Magnesium Hydroxide (Milk Of Mag) 30 ml DAILY PRN PO CONSTIPATION Last administered on 04/18/16 06:14; Admin Dose 30 ML; Start 04/01/16 at 19:30 Lorazepam (Ativan) 0.5 mg Q6H PRN IV ANXIETY Last administered on 04/15/16 05: 33; Admin Dose 0.5 MG; Start 04/01/16 at 19:30 Hydralazine HCl (Apresoline) 10 mg Q6H PRN IV ELEVATED BLOOD PRESSURE; Start at 19:30 Nitroglycerin (Nitroglycerin (Sl Tab) 0.4 Mg) 1 tab Q5M PRN SL ANGINA; Start at 19:30 Acetaminophen/ Hydrocodone Bitart ([place] (5/325)) 1 tab Q4H PRN PO PAIN LEVEL 4 -7; Start 04/12/16 at 15:00 Acetaminophen/ Hydrocodone Bitart ([place] (5/325)) 2 tab Q4H PRN PO PAIN LEVEL 7 -10 Last administered on 04/19/16 12:10; Admin Dose 2 TAB; Start 04/12/16 at 15 :00 Hydromorphone HCl (Dilaudid) 0.5 mg Q2 PRN IV PAIN; Start 04/12/16 at 15:00 Hydromorphone HCl (Dilaudid) 1 mg Q2 PRN IV PAIN Last administered on 09:33; Admin Dose 1 MG; Start 04/12/16 at 15:00 Docusate Sodium (Colace) 100 mg BID PRN PO CONSTIPATION Last administered on 20:31; Admin Dose 100 MG; Start 04/12/16 at 15:00 Bisacodyl (Dulcolax Supp) 10 mg BID PRN [place] CONSTIPATION; Start 04/12/16 at 15: 00 Famotidine (Pepcid) 40 mg HS PO Last administered on 04/18/16 20:30; Admin Dose 40 MG; Start 04/14/16 at 21:00 Collagenase (Santyl) 1 applic DAILY TOP Last administered on 04/19/16 09:18; Admin Dose 1 APPLIC; Start 04/15/16 at 13:00 Oxycodone/ Acetaminophen (Percocet (5/ 325)) 1 tab Q4H PRN PO PAIN; Start 04/17 at 14:30 Oxycodone/ Acetaminophen 2 tab 2 tab Q4H PRN PO PAIN Last administered on 09:41; Admin Dose 2 TAB; Start 04/17/16 at 14:30 Ciprofloxacin/ Dextrose (Cipro Ivpb) 200 ml @ 200 mls/hr Q12 IVPB Last administered on 04/19/16 09:18; Admin Dose 200 MLS/HR; Start 04/18/16 at 13:00 Phenazopyridine HCl (Pyridium) 200 mg TID PO Last administered on 04/19/16 12: 10; Admin Dose 200 MG; Start 04/18/16 at 14:00 Al Hydrox/Mg Hydrox/ Simethicone 30 ml 30 ml QID PRN PO GASTROINTESTINAL UPSET Last administered on 04/18/16 18:17; Admin Dose 30 ML; Start 04/18/16 at 17:30 Ferric Sodium Gluconate Complex/ Sodium Chloride (Ferrlecit/NS) 110 ml @ 110 mls/hr Q24H IVPB Last administered on 04/19/16t 00:20; Admin Dose 110 MLS/HR; Start 04/18/16 at 23:00; Stop 04/25/16 at 23:59 GLORY CHEW Apr 19, 2016 13:53
--- NOTE | 2016-04-19 14:10 | PN ---
Date/Time of Note Date/Time of Note DATE: 04/19/16 TIME: 14:06 Assessment/Plan Lines/Catheters IV Catheter Type (from Nrs): Saline Lock Coates in Place (from Nrs): No Assessment/Plan Assessment/Plan [facility] Progress Note Date of Service: 04/19/16 Today's Impression & Plan: Overall stable and improving. No major post surgical issues. Ok to d/c from my standpoint. With above assessment, I've recommended the following for today: 1. D/c home when ok by other MD's 2. F/u with me in the office in 2-3 weeks 3. Will follow from periphery over the weekend. Please call if any questions. Thank you again for your great care of this very pleasant patient and wonderful family. If there are any questions, please feel free to call me at [phone]. TOTAL VISIT TIME: 20 minutes of which more than half was spent in [id number] discussion with the patient, possibly including family, as well as coordination of care between multiple physicians and providers. Disclaimer: Inadvertent spelling or grammatical errors are likely due to EHR/ dictation software use and do not reflect on the overall quality of patient care. Updated Clinical Summary: The patient is a very pleasant 65-year-old gentleman with comorbidities including hypertension, who was initially admitted to [facility] through ED on 2015 with signs and symptoms consistent with anemia that eventually was shown to be a large, nearly obstructing mass approximately 12 cm from the anal verge up to the area of the rectosigmoid junction on colonoscopy 06/07/2015. Plan at that time was neoadjuvant treatment with chemoradiation followed by restaging and surgical resection. Patient underwent radiation therapy (Dr. Aranda) that ended September 2015 (patient's recollection was November 2015). Discussions with multiple colleagues revealed evidence that the patient had been not following instructions and there were barriers to get the patient to surgical intervention. At least part of the barriers were due to patient factors alone. Patient reported having contacted my office approximately 5 times to try and make an appointment and was told that we "do not accept" his insurance. Careful review of office records showed no documentation of patient calling. Patient also believed that he had had [employer] as his insurance carrier, but his insurance carrier was [employer] (accepted by our program). Patient re-presented to [facility] through ED with constipation, vomiting, abdominal distension and dilated loops of small intestine on 04/01/16. Significant comorbidities included not insignificant malnutrition with BMI 15.8 and dehydration, albumin of 3.6 in the setting of inability to feed enterically. Small area of liver in segment 6 and two very small areas in segment 4a of questionable significance (too small to tell) benign path vs. metastatic disease. We attempted to treat the bowel obstruction with nonoperative management with the hope that the patient would be able to increase his oral intake and improve his nutritional status prior to potentially getting systemic chemotherapy in the neoadjuvant fashion before surgical intervention. Patient very clearly showed us that his bowels were not able to tolerate any meaningful amount of nutritional intake after a few days of this management and for this reason, and after a multidisciplinary discussion, we decided to change our treatment strategy and take the patient to the operating room. List of operative interventions on 04/12/16: 1. Laparoscopic exploration converted to open exploration 2. Partial colectomy with removal of upper part of rectum and sigmoid colon ( modifier 22) 3. Resection of the end of terminal ileum along with cecum with primary anastomosis 4. Performance of an colostomy using distal descending colon 5. Extensive lysis of adhesions (at least 60 minutes) 6. Intraoperative ultrasound of the liver 7. Abdominal lavage Comorbidities: 1. Rectal malignancy, s/p chemotherapy and radiation June to Nov 2015; obstruction end of terminal ileum as well as at the level of the rectosigmoid junction with aggressive locally advanced rectal cancer; S/p an otherwise uncomplicated but challenging resection of both involved portions of rectosigmoid as well as terminal ileum in the setting of aggressive rectal cancer with local invasion of the pelvis on 04/13/16. 2. Hypertension 3. Cachexia; BMI 15.8; albumin of 3.6 in the setting of inability to feed enterically 4. Colonoscopy June 2015 5. Anxiety Subjective: No reported major events or complaints; in better spirits; no major abd pain and under control with medications; no nausea; no vomiting; no sob or cp; + flatus; + BM; increasing activity Objective: Vitals: See below Exam: GENERAL: On exam, the patient was laying in bed and appeared to be comfortable and in no acute distress. ABDOMEN: Soft, nontender and nondistended. There are no peritoneal signs or guarding. Incisions c/d/i w/o obvious underlying e/e/d/h. Ostomy pink, viable and productive. Drain site dressing clean dressing without discharge. SKIN: Skin appears to be pink and feels warm to touch. NEUROLOGIC: Patient is awake, alert, and follows commands appropriately. Exam/Review of Systems Vital Signs Vitals Vital Signs Date Time Temp Pulse Resp B/P Pulse Ox O2 Delivery O2 Flow Rate FiO2 04/19/16 07:58 97.8 70 18 139/68 97 04/15/16 22:58 Room Air Intake and Output 04/18/16 04/18/16 04/19/16 15:00 23:00 07:00 Intake Total 200 ml 840 ml 1510 ml Output Total 140 ml 550 ml 1580 ml Balance 60 ml 290 ml -70 ml Results Result Diagram: 04/19/16 0500 04/19/16 0500 DIVINE BEY M.D. Apr 19, 2016 14:10
[2016-04-19] MEDS: AL HYDROX/MG HYDROX/SIMETH 30 ML CUP PO PRN (17:30)
[2016-04-19 20:04] VITALS: BP 125/63; RESP 20
--- NOTE | 2016-04-19 20:14 | CONS ---
Date/Time of Note Date/Time of Note DATE: 04/19/16 TIME: 20:10 Assessment/Plan Assessment/Plan Chief Complaint/Hosp Course ABD PAIN, vomiting, and constipation- SBO VS ILEUS RECTAL ADENOCARCINOMA- POST NEOADJUVANT chemo/xrt CEA-N CONT POSTOP CARE PATH- PATHOLOGIC STAGING (pTNM): pT4b pN0. MODIFIED ASTLER-COLLER STAGE: MAC B3 PLAN- POST OP CHEMO SEVERE IRON DEFICIENCY WITH Microcytic, hypochromic anemia. MONITOR BLOOD COUNT CLOSELY h/h- dropping no bleeding on IV IRON PRBC TODAY Distal esophagitis with gastritis. Continue proton pump inhibitors. HTN POOR COMPLIANCE Problems: Consultation Date/Type/Reason Admit Date/Time Apr 01, 2016 at 18:54 Type of Consultation: HEMEONC Referring Provider: LINDA WALDROP MD 24 HR Interval Summary Free Text/Dictation ALL NOTED OVERALL IMPROVING H/H- ON LOW SIDE NO BLEEDING WEAK, PALE Exam/Review of Systems Vital Signs Vitals Vital Signs Date Time Temp Pulse Resp B/P Pulse Ox O2 Delivery O2 Flow Rate FiO2 04/19/16 20:04 98.6 73 20 125/63 98 04/15/16 22:58 Room Air Intake and Output 04/18/16 04/18/16 04/19/16 15:00 23:00 07:00 Intake Total 200 ml 840 ml 1510 ml Output Total 140 ml 550 ml 1580 ml Balance 60 ml 290 ml -70 ml Exam General: No apparent distress. Frail in appearance Eyes: pupils equal round, Anicteric sclera Neck: Supple nontender, no JVD Cardiac: S1, S2 auscultated, regular rhythm and rate Pulmonary: No coarse rhonchi or breathing auscultated GI: [Colostomy site on left abdominal quadrant Extremities: No edema bilateral lower extremities Skin: [Decubitus ulcer Neurologic: Alert to person place and time and situation Results Result Diagram: 04/19/16 0500 04/19/16 0500 Results 24 hrs Laboratory Tests Test 04/19/16 05:00 04/19/16 06:27 Anion Gap 7 L Basophils # 0.0 Basophils % 0.2 Blood Morphology Comment Blood Urea Nitrogen 8 Calcium Level 7.0 L Carbon Dioxide Level 28 Chloride Level 101 Creatinine 0.47 L Eosinophils # 0.1 Eosinophils % 0.9 Glucose Level 71 Hematocrit 23.9 L Hemoglobin 7.9 L Lymphocytes # 1.0 Lymphocytes % 15.3 Mean Corpuscular Hemoglobin 23.3 L Mean Corpuscular Hemoglobin Concent 33.0 Mean Corpuscular Volume 70.7 L Mean Platelet Volume 6.8 L Monocytes # 0.5 Monocytes % 7.8 Neutrophils # 4.8 Neutrophils % 75.8 Nucleated Red Blood Cells # 0.0 Nucleated Red Blood Cells % 0.0 Platelet Count 484 H Potassium Level 3.5 Red Blood Count 3.38 L Red Cell Distribution Width 19.6 H Sodium Level 132 L White Blood Count 6.3 Lab Scanned Report REFERENCE LAB Medications Medications Current Medications Ondansetron HCl (Zofran Inj) 4 mg Q6H PRN IV NAUSEA AND/OR VOMITING Last administered on 04/16/16 12:31; Admin Dose 4 MG; Start 04/01/16 at 19:30 Acetaminophen (Tylenol Tab) 650 mg Q6H PRN PO PAIN LEVEL 1-3 OR FEVER Last administered on 04/03/16 19:12; Admin Dose 650 MG; Start 04/01/16 at 19:30 Magnesium Hydroxide (Milk Of Mag) 30 ml DAILY PRN PO CONSTIPATION Last administered on 04/18/16 06:14; Admin Dose 30 ML; Start 04/01/16 at 19:30 Lorazepam (Ativan) 0.5 mg Q6H PRN IV ANXIETY Last administered on 04/15/16 05: 33; Admin Dose 0.5 MG; Start 04/01/16 at 19:30 Hydralazine HCl (Apresoline) 10 mg Q6H PRN IV ELEVATED BLOOD PRESSURE; Start at 19:30 Nitroglycerin (Nitroglycerin (Sl Tab) 0.4 Mg) 1 tab Q5M PRN SL ANGINA; Start at 19:30 Acetaminophen/ Hydrocodone Bitart ([place] (5/325)) 1 tab Q4H PRN PO PAIN LEVEL 4 -7; Start 04/12/16 at 15:00 Acetaminophen/ Hydrocodone Bitart ([place]riken (5/325)) 2 tab Q4H PRN PO PAIN LEVEL 7 -10 Last administered on 04/19/16 12:10; Admin Dose 2 TAB; Start 04/12/16 at 15 :00 Hydromorphone HCl (Dilaudid) 0.5 mg Q2 PRN IV PAIN; Start 04/12/16 at 15:00 Hydromorphone HCl (Dilaudid) 1 mg Q2 PRN IV PAIN Last administered on 17:45; Admin Dose 1 MG; Start 04/12/16 at 15:00 Docusate Sodium (Colace) 100 mg BID PRN PO CONSTIPATION Last administered on 20:31; Admin Dose 100 MG; Start 04/12/16 at 15:00 Bisacodyl (Dulcolax Supp) 10 mg BID PRN [place] CONSTIPATION; Start 04/12/16 at 15: 00 Famotidine (Pepcid) 40 mg HS PO Last administered on 04/18/16 20:30; Admin Dose 40 MG; Start 04/14/16 at 21:00 Collagenase (Santyl) 1 applic DAILY TOP Last administered on 04/19/16 09:18; Admin Dose 1 APPLIC; Start 04/15/16 at 13:00 Oxycodone/ Acetaminophen (Percocet (5/ 325)) 1 tab Q4H PRN PO PAIN; Start 04/17 at 14:30 Oxycodone/ Acetaminophen 2 tab 2 tab Q4H PRN PO PAIN Last administered on 09:41; Admin Dose 2 TAB; Start 04/17/16 at 14:30 Ciprofloxacin/ Dextrose (Cipro Ivpb) 200 ml @ 200 mls/hr Q12 IVPB Last administered on 04/19/16 09:18; Admin Dose 200 MLS/HR; Start 04/18/16 at 13:00 Phenazopyridine HCl (Pyridium) 200 mg TID PO Last administered on 04/19/16 12: 10; Admin Dose 200 MG; Start 04/18/16 at 14:00 Al Hydrox/Mg Hydrox/ Simethicone 30 ml 30 ml QID PRN PO GASTROINTESTINAL UPSET Last administered on 04/19/16 17:30; Admin Dose 30 ML; Start 04/18/16 at 17:30 Ferric Sodium Gluconate Complex/ Sodium Chloride (Ferrlecit/NS) 110 ml @ 110 mls/hr Q24H IVPB Last administered on 04/19/16 00:20; Admin Dose 110 MLS/HR; Start 04/18/16 at 23:00; Stop 04/25/16 at 23:59 JASMINA PALOMARES MD Apr 19, 2016 20:14
[2016-04-19] MEDS: FAMOTIDINE 20 MG TAB PO SCH (20:17)
[2016-04-20] MEDS: HYDROmorphONE 1 MG/ML SYG IV PRN ×11 (01:20→22:36)
[2016-04-20 05:07] LABS: BASOPHILS % 0.1 % (0.0-2.0); EOSINOPHILS # 0.1 10^3/ul (0.0-0.5); EOSINOPHILS % 1.1 % (0.0-7.0); HEMATOCRIT 26.5 % (42.0-52.0); HEMOGLOBIN 8.7 g/dl (14.0-18.0); LYMPHOCYTES # 0.7 10^3/ul (0.8-2.9); MEAN CORPUSCULAR HGB CONC 32.8 g/dl (32.0-37.0); MEAN CORPUSCULAR VOLUME 73.3 fl (82.0-101.0); MEAN PLATELET VOLUME 6.6 fl (7.4-10.4); MONOCYTE # 0.5 10^3/ul (0.3-0.9); MONOCYTES % 8.7 % (0.0-11.0); NEUTROPHILS % 76.1 % (39.0-77.0); PLATELET COUNT 434 10^3/UL (140-440); RED BLOOD COUNT 3.61 10^6/ul (4.70-6.10); RED CELL DISTRIBUTION WIDTH 23.2 % (11.5-14.5); UNCORRECTED WBC 5.3 10^3/ul (4.8-10.8); WHITE BLOOD COUNT 5.3 10^3/ul (4.8-10.8)
[2016-04-20 05:22] LABS: POTASSIUM 3.3 mmol/L (3.5-5.1)
[2016-04-20 05:24] LABS: CREATININE 0.56 mg/dl (0.61-1.24)
[2016-04-20 05:25] LABS: CALCIUM 7.1 mg/dl (8.4-10.2)
[2016-04-20 05:34] LABS: CONDITION 1; LH ANALYZER COMMENTS 1
[2016-04-20 07:20] VITALS: BP 129/83; RESP 18
[2016-04-20] MEDS: CIPROFLOXACIN 400MG/D5W 200 ML IVPB SCH ×2 (09:10→20:42)
[2016-04-20] MEDS: PHENAZOPYRIDINE 200 MG TAB PO SCH ×3 (09:11→20:44)
[2016-04-20] MEDS: COLLAGENASE 30 GM TUBE TOP SCH (09:11)
[2016-04-20] MEDS ORDERED: POTASSIUM CHLORIDE (SR) 20 MEQ TAB PO STA (10:34)
[2016-04-20] MEDS: AL HYDROX/MG HYDROX/SIMETH 30 ML CUP PO PRN (14:00)
--- NOTE | 2016-04-20 14:44 | PN ---
Date/Time of Note Date/Time of Note DATE: 04/20/16 TIME: 14:43 Assessment/Plan Lines/Catheters IV Catheter Type (from Nrs): Saline Lock Coates in Place (from Nrs): No Assessment/Plan Assessment/Plan [facility] Progress Note Date of Service: 04/20/16 Today's Impression & Plan: Overall stable and improving. No major post surgical issues. Ok to d/c from my standpoint. With above assessment, I've recommended the following for today: 1. D/c home when ok by other MD's 2. F/u with me in the office in 2-3 weeks 3. Will follow from periphery over the weekend. Please call if any questions. Thank you again for your great care of this very pleasant patient and wonderful family. If there are any questions, please feel free to call me at [phone]. TOTAL VISIT TIME: 20 minutes of which more than half was spent in [id number] discussion with the patient, possibly including family, as well as coordination of care between multiple physicians and providers. Disclaimer: Inadvertent spelling or grammatical errors are likely due to EHR/ dictation software use and do not reflect on the overall quality of patient care. Updated Clinical Summary: The patient is a very pleasant 65-year-old gentleman with comorbidities including hypertension, who was initially admitted to [facility] through ED on 2015 with signs and symptoms consistent with anemia that eventually was shown to be a large, nearly obstructing mass approximately 12 cm from the anal verge up to the area of the rectosigmoid junction on colonoscopy 06/07/2015. Plan at that time was neoadjuvant treatment with chemoradiation followed by restaging and surgical resection. Patient underwent radiation therapy (Dr. Aranda) that ended September 2015 (patient's recollection was November 2015). Discussions with multiple colleagues revealed evidence that the patient had been not following instructions and there were barriers to get the patient to surgical intervention. At least part of the barriers were due to patient factors alone. Patient reported having contacted my office approximately 5 times to try and make an appointment and was told that we "do not accept" his insurance. Careful review of office records showed no documentation of patient calling. Patient also believed that he had had [employer] as his insurance carrier, but his insurance carrier was [employer] (accepted by our program). Patient re-presented to [facility] through ED with constipation, vomiting, abdominal distension and dilated loops of small intestine on 04/01/16. Significant comorbidities included not insignificant malnutrition with BMI 15.8 and dehydration, albumin of 3.6 in the setting of inability to feed enterically. Small area of liver in segment 6 and two very small areas in segment 4a of questionable significance (too small to tell) benign path vs. metastatic disease. We attempted to treat the bowel obstruction with nonoperative management with the hope that the patient would be able to increase his oral intake and improve his nutritional status prior to potentially getting systemic chemotherapy in the neoadjuvant fashion before surgical intervention. Patient very clearly showed us that his bowels were not able to tolerate any meaningful amount of nutritional intake after a few days of this management and for this reason, and after a multidisciplinary discussion, we decided to change our treatment strategy and take the patient to the operating room. List of operative interventions on 04/12/16: 1. Laparoscopic exploration converted to open exploration 2. Partial colectomy with removal of upper part of rectum and sigmoid colon ( modifier 22) 3. Resection of the end of terminal ileum along with cecum with primary anastomosis 4. Performance of an colostomy using distal descending colon 5. Extensive lysis of adhesions (at least 60 minutes) 6. Intraoperative ultrasound of the liver 7. Abdominal lavage Comorbidities: 1. Rectal malignancy, s/p chemotherapy and radiation June to Nov 2015; obstruction end of terminal ileum as well as at the level of the rectosigmoid junction with aggressive locally advanced rectal cancer; S/p an otherwise uncomplicated but challenging resection of both involved portions of rectosigmoid as well as terminal ileum in the setting of aggressive rectal cancer with local invasion of the pelvis on 04/13/16. 2. Hypertension 3. Cachexia; BMI 15.8; albumin of 3.6 in the setting of inability to feed enterically 4. Colonoscopy June 2015 5. Anxiety Subjective: No reported major events or complaints; reports feeling well; no major abd pain and under control with medications; some discomfort near the ostomy site; no nausea; no vomiting; no sob or cp; + flatus; + BM; increasing activity Objective: Vitals: See below Exam: GENERAL: On exam, the patient was standing up in his room and appeared to be comfortable and in no acute distress. ABDOMEN: Soft, nontender and nondistended. There are no peritoneal signs or guarding. Incisions c/d/i w/o obvious underlying e/e/d/h. Ostomy pink, viable and productive. Drain site dressing clean dressing without discharge. SKIN: Skin appears to be pink and feels warm to touch. NEUROLOGIC: Patient is awake, alert, and follows commands appropriately. Exam/Review of Systems Vital Signs Vitals Vital Signs Date Time Temp Pulse Resp B/P Pulse Ox O2 Delivery O2 Flow Rate FiO2 04/20/16 07:20 98.0 77 18 129/83 93 Intake and Output 04/19/16 04/19/16 04/20/16 14:59 22:59 06:59 Intake Total 200 ml 640 ml 1600 ml Output Total 1600 ml 1700 ml Balance 200 ml -960 ml -100 ml Results Result Diagram: 04/20/16 0415 04/20/16 0415 DIVINE BEY M.D. Apr 20, 2016 14:44
--- NOTE | 2016-04-20 15:34 | PN ---
Date/Time of Note Date/Time of Note DATE: 04/20/16 TIME: 15:32 Assessment/Plan VTE Prophylaxis VTE Prophylaxis Intervention: SCD's Lines/Catheters IV Catheter Type (from Nrs): Saline Lock Urinary Cath still in place: No Assessment/Plan Chief Complaint/Hosp Course Assessment and plan 1. Abdominal pain likely secondary to ileus. Patient status post resection of terminal ileum and cecum with primary anastomosis we also resection of sigmoid colon and placement of colostomy on 04/12/2016. Continue postop care. Continue with wound care. 2. Ulcerative esophagitis. cont PPI 3. Gastritis. Continue on PPI 4. Moderately differentiated carcinoma of the rectum. Vision status post resection of terminal ileum and cecum with primary anastomosis. Colostomy now in place. Continue with oncology and surgical recommendations. 5. Iron deficiency anemia. Continue iron supplement 6. Essential hypertension. Provide with antihypertensives as needed. Stable at present 7. Depression. cont on duloxetine DVT prophylaxis: SCDs GERD prophylaxis: PPI Disposition and plan: still with some abd pain. patient reports increase weakness and swelling on feet. PT to follow. diuretic added. will see for home with home health vs. snf/aru Discussed plan of care with Dr. Roberts Problems: Subjective 24 Hr Interval Summary Free Text/Dictation reports some abd discomfort Exam/Review of Systems Vital Signs Vitals Vital Signs Date Time Temp Pulse Resp B/P Pulse Ox O2 Delivery O2 Flow Rate FiO2 04/20/16 07:20 98.0 77 18 129/83 93 Intake and Output 04/19/16 04/19/16 04/20/16 14:59 22:59 06:59 Intake Total 200 ml 640 ml 1600 ml Output Total 1600 ml 1700 ml Balance 200 ml -960 ml -100 ml Exam General: No apparent distress. Frail in appearance Eyes: pupils equal round, Anicteric sclera Neck: Supple nontender, no JVD Cardiac: S1, S2 auscultated, regular rhythm and rate Pulmonary: No coarse rhonchi or breathing auscultated GI: [Colostomy site on left abdominal quadrant Extremities: No edema bilateral lower extremities Skin: [Decubitus ulcer Neurologic: Alert to person place and time and situation Results Result Diagram: 04/20/16 0415 04/20/16 0415 Results 24 hrs Laboratory Tests Test 04/20/16 04:15 Anion Gap 5 L Basophils # 0.0 Basophils % 0.1 Blood Morphology Comment Blood Urea Nitrogen 6 L Calcium Level 7.1 L Carbon Dioxide Level 28 Chloride Level 102 Creatinine 0.56 L Eosinophils # 0.1 Eosinophils % 1.1 Glucose Level 71 Hematocrit 26.5 L Hemoglobin 8.7 L Lymphocytes # 0.7 L Lymphocytes % 14.0 L Mean Corpuscular Hemoglobin 24.0 L Mean Corpuscular Hemoglobin Concent 32.8 Mean Corpuscular Volume 73.3 L Mean Platelet Volume 6.6 L Monocytes # 0.5 Monocytes % 8.7 Neutrophils # 4.0 Neutrophils % 76.1 Nucleated Red Blood Cells # 0.0 Nucleated Red Blood Cells % 0.0 Platelet Count 434 Potassium Level 3.3 L Red Blood Count 3.61 L Red Cell Distribution Width 23.2 H Sodium Level 132 L White Blood Count 5.3 Medications Medications Current Medications Ondansetron HCl (Zofran Inj) 4 mg Q6H PRN IV NAUSEA AND/OR VOMITING Last administered on 04/16/16 12:31; Admin Dose 4 MG; Start 04/01/16 at 19:30 Acetaminophen (Tylenol Tab) 650 mg Q6H PRN PO PAIN LEVEL 1-3 OR FEVER Last administered on 04/03/16 19:12; Admin Dose 650 MG; Start 04/01/16 at 19:30 Magnesium Hydroxide (Milk Of Mag) 30 ml DAILY PRN PO CONSTIPATION Last administered on 04/18/16 06:14; Admin Dose 30 ML; Start 04/01/16 at 19:30 Lorazepam (Ativan) 0.5 mg Q6H PRN IV ANXIETY Last administered on 04/15/16 05: 33; Admin Dose 0.5 MG; Start 04/01/16 at 19:30 Hydralazine HCl (Apresoline) 10 mg Q6H PRN IV ELEVATED BLOOD PRESSURE; Start at 19:30 Nitroglycerin (Nitroglycerin (Sl Tab) 0.4 Mg) 1 tab Q5M PRN SL ANGINA; Start at 19:30 Acetaminophen/ Hydrocodone Bitart ([place] (5/325)) 1 tab Q4H PRN PO PAIN LEVEL 4 -7; Start 04/12/16 at 15:00 Acetaminophen/ Hydrocodone Bitart ([place] (5/325)) 2 tab Q4H PRN PO PAIN LEVEL 7 -10 Last administered on 04/19/16 12:10; Admin Dose 2 TAB; Start 04/12/16 at 15 :00 Hydromorphone HCl (Dilaudid) 0.5 mg Q2 PRN IV PAIN; Start 04/12/16 at 15:00 Hydromorphone HCl (Dilaudid) 1 mg Q2 PRN IV PAIN Last administered on 13:59; Admin Dose 1 MG; Start 04/12/16 at 15:00 Docusate Sodium (Colace) 100 mg BID PRN PO CONSTIPATION Last administered on 20:31; Admin Dose 100 MG; Start 04/12/16 at 15:00 Bisacodyl (Dulcolax Supp) 10 mg BID PRN [place] CONSTIPATION; Start 04/12/16 at 15: 00 Famotidine (Pepcid) 40 mg HS PO Last administered on 04/19/16 20:17; Admin Dose 40 MG; Start 04/14/16 at 21:00 Collagenase (Santyl) 1 applic DAILY TOP Last administered on 04/20/16 09:11; Admin Dose 1 APPLIC; Start 04/15/16 at 13:00 Oxycodone/ Acetaminophen (Percocet (5/ 325)) 1 tab Q4H PRN PO PAIN; Start 04/17 at 14:30 Oxycodone/ Acetaminophen 2 tab 2 tab Q4H PRN PO PAIN Last administered on 09:41; Admin Dose 2 TAB; Start 04/17/16 at 14:30 Ciprofloxacin/ Dextrose (Cipro Ivpb) 200 ml @ 200 mls/hr Q12 IVPB Last administered on 04/20/16 09:10; Admin Dose 200 MLS/HR; Start 04/18/16 at 13:00 Phenazopyridine HCl (Pyridium) 200 mg TID PO Last administered on 04/20/16 12: 12; Admin Dose 200 MG; Start 04/18/16 at 14:00 Al Hydrox/Mg Hydrox/ Simethicone 30 ml 30 ml QID PRN PO GASTROINTESTINAL UPSET Last administered on 04/20/16 14:00; Admin Dose 30 ML; Start 04/18/16 at 17:30 Ferric Sodium Gluconate Complex/ Sodium Chloride (Ferrlecit/NS) 110 ml @ 110 mls/hr Q24H IVPB Last administered on 04/19/16t 22:43; Admin Dose 110 MLS/HR; Start 04/18/16 at 23:00; Stop 04/25/16 at 23:59 GLORY CHEW Apr 20, 2016 15:34
[2016-04-20] MEDS: FUROSEMIDE 40 MG INJ IV SCH (16:31)
[2016-04-20] MEDS: HYDROCODONE/APAP (5/325) TAB PO PRN ×2 (19:27→23:50)
--- NOTE | 2016-04-20 20:38 | CONS ---
Date/Time of Note Date/Time of Note DATE: 04/20/16 TIME: 20:36 Assessment/Plan Assessment/Plan Chief Complaint/Hosp Course ABD PAIN, vomiting, and constipation- SBO VS ILEUS RECTAL ADENOCARCINOMA- POST NEOADJUVANT chemo/xrt CEA-N CONT POSTOP CARE PATH- PATHOLOGIC STAGING (pTNM): pT4b pN0. MODIFIED ASTLER-COLLER STAGE: MAC B3 PLAN- POST OP CHEMO SEVERE IRON DEFICIENCY WITH Microcytic, hypochromic anemia. MONITOR BLOOD COUNT CLOSELY h/h- dropping no bleeding on IV IRON PRBC TODAY Distal esophagitis with gastritis. Continue proton pump inhibitors. HTN POOR COMPLIANCE Problems: Consultation Date/Type/Reason Admit Date/Time Apr 01, 2016 at 18:54 Type of Consultation: HEMEON Referring Provider: LINDA WALDROP MD 24 HR Interval Summary Free Text/Dictation Overall stable and improving. No major issues. POST PRBC COUNT IMPROVES Exam/Review of Systems Vital Signs Vitals Vital Signs Date Time Temp Pulse Resp B/P Pulse Ox O2 Delivery O2 Flow Rate FiO2 04/20/16 07:20 98.0 77 18 129/83 93 Intake and Output 04/19/16 04/19/16 04/20/16 15:00 23:00 07:00 Intake Total 200 ml 640 ml 1600 ml Output Total 1600 ml 1700 ml Balance 200 ml -960 ml -100 ml Exam General: No apparent distress. Frail in appearance Eyes: pupils equal round, Anicteric sclera Neck: Supple nontender, no JVD Cardiac: S1, S2 auscultated, regular rhythm and rate Pulmonary: No coarse rhonchi or breathing auscultated GI: [Colostomy site on left abdominal quadrant Extremities: No edema bilateral lower extremities Skin: [Decubitus ulcer Neurologic: Alert to person place and time and situation Results Result Diagram: 04/20/16 0415 04/20/16 0415 Results 24 hrs Laboratory Tests Test 04/20/16 04:15 Anion Gap 5 L Basophils # 0.0 Basophils % 0.1 Blood Morphology Comment Blood Urea Nitrogen 6 L Calcium Level 7.1 L Carbon Dioxide Level 28 Chloride Level 102 Creatinine 0.56 L Eosinophils # 0.1 Eosinophils % 1.1 Glucose Level 71 Hematocrit 26.5 L Hemoglobin 8.7 L Lymphocytes # 0.7 L Lymphocytes % 14.0 L Mean Corpuscular Hemoglobin 24.0 L Mean Corpuscular Hemoglobin Concent 32.8 Mean Corpuscular Volume 73.3 L Mean Platelet Volume 6.6 L Monocytes # 0.5 Monocytes % 8.7 Neutrophils # 4.0 Neutrophils % 76.1 Nucleated Red Blood Cells # 0.0 Nucleated Red Blood Cells % 0.0 Platelet Count 434 Potassium Level 3.3 L Red Blood Count 3.61 L Red Cell Distribution Width 23.2 H Sodium Level 132 L White Blood Count 5.3 Medications Medications Current Medications Ondansetron HCl (Zofran Inj) 4 mg Q6H PRN IV NAUSEA AND/OR VOMITING Last administered on 04/16/16 12:31; Admin Dose 4 MG; Start 04/01/16 at 19:30 Acetaminophen (Tylenol Tab) 650 mg Q6H PRN PO PAIN LEVEL 1-3 OR FEVER Last administered on 04/03/16 19:12; Admin Dose 650 MG; Start 04/01/16 at 19:30 Magnesium Hydroxide (Milk Of Mag) 30 ml DAILY PRN PO CONSTIPATION Last administered on 04/18/16 06:14; Admin Dose 30 ML; Start 04/01/16 at 19:30 Lorazepam (Ativan) 0.5 mg Q6H PRN IV ANXIETY Last administered on 04/15/16 05: 33; Admin Dose 0.5 MG; Start 04/01/16 at 19:30 Hydralazine HCl (Apresoline) 10 mg Q6H PRN IV ELEVATED BLOOD PRESSURE; Start at 19:30 Nitroglycerin (Nitroglycerin (Sl Tab) 0.4 Mg) 1 tab Q5M PRN SL ANGINA; Start at 19:30 Acetaminophen/ Hydrocodone Bitart ([place] (5/325)) 1 tab Q4H PRN PO PAIN LEVEL 4 -7; Start 04/12/16 at 15:00 Acetaminophen/ Hydrocodone Bitart ([place] (5/325)) 2 tab Q4H PRN PO PAIN LEVEL 7 -10 Last administered on 04/20/16 19:27; Admin Dose 2 TAB; Start 04/12/16 at 15 :00 Hydromorphone HCl (Dilaudid) 0.5 mg Q2 PRN IV PAIN; Start 04/12/16 at 15:00 Hydromorphone HCl (Dilaudid) 1 mg Q2 PRN IV PAIN Last administered on 18:17; Admin Dose 1 MG; Start 04/12/16 at 15:00 Docusate Sodium (Colace) 100 mg BID PRN PO CONSTIPATION Last administered on 20:31; Admin Dose 100 MG; Start 04/12/16 at 15:00 Bisacodyl (Dulcolax Supp) 10 mg BID PRN [place] CONSTIPATION; Start 04/12/16 at 15: 00 Famotidine (Pepcid) 40 mg HS PO Last administered on 04/19/16 20:17; Admin Dose 40 MG; Start 04/14/16 at 21:00 Collagenase (Santyl) 1 applic DAILY TOP Last administered on 04/20/16 09:11; Admin Dose 1 APPLIC; Start 04/15/16 at 13:00 Oxycodone/ Acetaminophen (Percocet (5/ 325)) 1 tab Q4H PRN PO PAIN; Start 04/17 at 14:30 Oxycodone/ Acetaminophen 2 tab 2 tab Q4H PRN PO PAIN Last administered on 09:41; Admin Dose 2 TAB; Start 04/17/16 at 14:30 Ciprofloxacin/ Dextrose (Cipro Ivpb) 200 ml @ 200 mls/hr Q12 IVPB Last administered on 04/20/16 09:10; Admin Dose 200 MLS/HR; Start 04/18/16 at 13:00 Phenazopyridine HCl (Pyridium) 200 mg TID PO Last administered on 04/20/16 12: 12; Admin Dose 200 MG; Start 04/18/16 at 14:00 Al Hydrox/Mg Hydrox/ Simethicone 30 ml 30 ml QID PRN PO GASTROINTESTINAL UPSET Last administered on 04/20/16 14:00; Admin Dose 30 ML; Start 04/18/16 at 17:30 Ferric Sodium Gluconate Complex/ Sodium Chloride (Ferrlecit/NS) 110 ml @ 110 mls/hr Q24H IVPB Last administered on 04/19/16 22:43; Admin Dose 110 MLS/HR; Start 04/18/16 at 23:00; Stop 04/25/16 at 23:59 Furosemide (Lasix) 40 mg DAILY IV Last administered on 04/20/16 16:31; Admin Dose 40 MG; Start 04/20/16 at 16:00 JASMINA PALOMARES MD Apr 20, 2016 20:38
[2016-04-20] MEDS: FAMOTIDINE 20 MG TAB PO SCH (20:44)
[2016-04-20 21:04] VITALS: BP 141/62; RESP 16
[2016-04-20] MEDS: SOD FERRIC GLUC COMPLX 125 MG in SOD CHLORIDE 0.9% 100 ML IVPB SCH (22:34)
[2016-04-21 00:07] VITALS: BP 131/64; RESP 16
[2016-04-21] MEDS: HYDROmorphONE 1 MG/ML SYG IV PRN ×10 (01:25→22:32)
[2016-04-21] MEDS: OXYCODONE/ACETAMINOPHEN (5/325) TAB PO PRN ×2 (02:58→23:47)
[2016-04-21] MEDS: FUROSEMIDE 40 MG INJ IV SCH (08:52)
[2016-04-21] MEDS: CIPROFLOXACIN 400MG/D5W 200 ML IVPB SCH ×2 (08:52→20:18)
[2016-04-21] MEDS: PHENAZOPYRIDINE 200 MG TAB PO SCH ×3 (08:52→20:18)
[2016-04-21] MEDS: COLLAGENASE 30 GM TUBE TOP SCH (08:52)
--- NOTE | 2016-04-21 12:29 | PN ---
Date/Time of Note Date/Time of Note DATE: 04/21/16 TIME: 12:28 Assessment/Plan VTE Prophylaxis VTE Prophylaxis Intervention: SCD's Lines/Catheters IV [facility] Saline Lock Urinary Cath still in place: No Assessment/Plan Chief Complaint/Hosp Course Assessment and plan 1. Abdominal pain likely secondary to ileus. Patient status post resection of terminal ileum and cecum with primary anastomosis we also resection of sigmoid colon and placement of colostomy on 04/12/2016. Continue postop care. Continue with wound care. 2. Ulcerative esophagitis. cont PPI 3. Gastritis. Continue on PPI 4. Moderately differentiated carcinoma of the rectum. Vision status post resection of terminal ileum and cecum with primary anastomosis. Colostomy now in place. Continue with oncology and surgical recommendations. 5. Iron deficiency anemia. Continue iron supplement 6. Essential hypertension. Provide with antihypertensives as needed. Stable at present 7. Depression. cont on duloxetine DVT prophylaxis: SCDs GERD prophylaxis: PPI Disposition and plan: d/c planning. Patient with reported change in his insurance. Try to transfer to inpatient acute rehab. Will follow up case management Discussed plan of care with Dr. Roberts Problems: Subjective 24 Hr Interval Summary Free Text/Dictation no s/s of distress Exam/Review of Systems Vital Signs Vitals Vital Signs Date Time Temp Pulse Resp B/P Pulse Ox O2 Delivery O2 Flow Rate FiO2 04/21/16 00:07 98.0 73 16 131/64 98 Intake and Output 04/20/16 04/20/16 04/21/16 14:59 22:59 06:59 Intake Total 1200 ml 1150 ml Output Total 1650 ml 975 ml Balance -450 ml 175 ml Exam General: No apparent distress. Frail in appearance Eyes: pupils equal round, Anicteric sclera Neck: Supple nontender, no JVD Cardiac: S1, S2 auscultated, regular rhythm and rate Pulmonary: No coarse rhonchi or breathing auscultated GI: [Colostomy site on left abdominal quadrant Extremities: No edema bilateral lower extremities Skin: [Decubitus ulcer Neurologic: Alert to person place and time and situation Results Result Diagram: 04/20/16 0415 04/20/16 0415 Medications Medications Current Medications Ondansetron HCl (Zofran Inj) 4 mg Q6H PRN IV NAUSEA AND/OR VOMITING Last administered on 04/16/16t 12:31; Admin Dose 4 MG; Start 04/01/16 at 19:30 Acetaminophen (Tylenol Tab) 650 mg Q6H PRN PO PAIN LEVEL 1-3 OR FEVER Last administered on 04/03/16 19:12; Admin Dose 650 MG; Start 04/01/16 at 19:30 Magnesium Hydroxide (Milk Of Mag) 30 ml DAILY PRN PO CONSTIPATION Last administered on 04/18/16 06:14; Admin Dose 30 ML; Start 04/01/16 at 19:30 Lorazepam (Ativan) 0.5 mg Q6H PRN IV ANXIETY Last administered on 04/15/16 05: 33; Admin Dose 0.5 MG; Start 04/01/16 at 19:30 Hydralazine HCl (Apresoline) 10 mg Q6H PRN IV ELEVATED BLOOD PRESSURE; Start at 19:30 Nitroglycerin (Nitroglycerin (Sl Tab) 0.4 Mg) 1 tab Q5M PRN SL ANGINA; Start at 19:30 Acetaminophen/ Hydrocodone Bitart ([place] (5/325)) 1 tab Q4H PRN PO PAIN LEVEL 4 -7; Start 04/12/16 at 15:00 Acetaminophen/ Hydrocodone Bitart ([place] (5/325)) 2 tab Q4H PRN PO PAIN LEVEL 7 -10 Last administered on 04/20/16 23:50; Admin Dose 2 TAB; Start 04/12/16 at 15 :00 Hydromorphone HCl (Dilaudid) 0.5 mg Q2 PRN IV PAIN; Start 04/12/16 at 15:00 Hydromorphone HCl (Dilaudid) 1 mg Q2 PRN IV PAIN Last administered on 11:13; Admin Dose 1 MG; Start 04/12/16 at 15:00 Docusate Sodium (Colace) 100 mg BID PRN PO CONSTIPATION Last administered on 20:31; Admin Dose 100 MG; Start 04/12/16 at 15:00 Bisacodyl (Dulcolax Supp) 10 mg BID PRN [place] CONSTIPATION; Start 04/12/16 at 15: 00 Famotidine (Pepcid) 40 mg HS PO Last administered on 04/20/16 20:44; Admin Dose 40 MG; Start 04/14/16 at 21:00 Collagenase (Santyl) 1 applic DAILY TOP Last administered on 04/21/16 08:52; Admin Dose 1 APPLIC; Start 04/15/16 at 13:00 Oxycodone/ Acetaminophen (Percocet (5/ 325)) 1 tab Q4H PRN PO PAIN; Start 04/17 at 14:30 Oxycodone/ Acetaminophen 2 tab 2 tab Q4H PRN PO PAIN Last administered on 02:58; Admin Dose 2 TAB; Start 04/17/16 at 14:30 Ciprofloxacin/ Dextrose (Cipro Ivpb) 200 ml @ 200 mls/hr Q12 IVPB Last administered on 04/21/16 08:52; Admin Dose 200 MLS/HR; Start 04/18/16 at 13:00 Phenazopyridine HCl (Pyridium) 200 mg TID PO Last administered on 04/21/16 08: 52; Admin Dose 200 MG; Start 04/18/16 at 14:00 Al Hydrox/Mg Hydrox/ Simethicone 30 ml 30 ml QID PRN PO GASTROINTESTINAL UPSET Last administered on 04/20/16 14:00; Admin Dose 30 ML; Start 04/18/16 at 17:30 Ferric Sodium Gluconate Complex/ Sodium Chloride (Ferrlecit/NS) 110 ml @ 110 mls/hr Q24H IVPB Last administered on 04/20/16 22:34; Admin Dose 110 MLS/HR; Start 04/18/16 at 23:00; Stop 04/25/16 at 23:59 Furosemide (Lasix) 40 mg DAILY IV Last administered on 04/21/16 08:52; Admin Dose 40 MG; Start 04/20/16 at 16:00 GLORY CHEW Apr 21, 2016 12:29
--- NOTE | 2016-04-21 12:59 | CONS ---
Date/Time of Note Date/Time of Note DATE: 04/21/16 TIME: 12:58 Assessment/Plan Assessment/Plan Chief Complaint/Hosp Course ABD PAIN, vomiting, and constipation- SBO VS ILEUS RECTAL ADENOCARCINOMA- POST NEOADJUVANT chemo/xrt CEA-N CONT POSTOP CARE PATH- PATHOLOGIC STAGING (pTNM): pT4b pN0. MODIFIED ASTLER-COLLER STAGE: MAC B3 PLAN- POST OP CHEMO SEVERE IRON DEFICIENCY WITH Microcytic, hypochromic anemia , POST PRBC MONITOR BLOOD COUNT CLOSELY h/h- ON LOW SIDE no bleeding on IV IRON PRBC PRN Distal esophagitis with gastritis. Continue proton pump inhibitors. HTN POOR COMPLIANCE Problems: Consultation Date/Type/Reason Admit Date/Time Apr 01, 2016 at 18:54 Type of Consultation: HEMEON Referring Provider: LINDA WALDROP MD 24 HR Interval Summary Free Text/Dictation ALL NOTED FELLING BETTER NO NEW EVENTS Exam/Review of Systems Vital Signs Vitals Vital Signs Date Time Temp Pulse Resp B/P Pulse Ox O2 Delivery O2 Flow Rate FiO2 04/21/16 00:07 98.0 73 16 131/64 98 Intake and Output 04/20/16 04/20/16 04/21/16 15:00 23:00 07:00 Intake Total 1200 ml 1150 ml Output Total 1650 ml 975 ml Balance -450 ml 175 ml Exam General: No apparent distress. Frail in appearance Eyes: pupils equal round, Anicteric sclera Neck: Supple nontender, no JVD Cardiac: S1, S2 auscultated, regular rhythm and rate Pulmonary: No coarse rhonchi or breathing auscultated GI: [Colostomy site on left abdominal quadrant Extremities: No edema bilateral lower extremities Skin: [Decubitus ulcer Neurologic: Alert to person place and time and situation Results Result Diagram: 04/20/16 0415 04/20/16 0415 Medications Medications Current Medications Ondansetron HCl (Zofran Inj) 4 mg Q6H PRN IV NAUSEA AND/OR VOMITING Last administered on 04/16/16 12:31; Admin Dose 4 MG; Start 04/01/16 at 19:30 Acetaminophen (Tylenol Tab) 650 mg Q6H PRN PO PAIN LEVEL 1-3 OR FEVER Last administered on 04/03/16 19:12; Admin Dose 650 MG; Start 04/01/16 at 19:30 Magnesium Hydroxide (Milk Of Mag) 30 ml DAILY PRN PO CONSTIPATION Last administered on 04/18/16 06:14; Admin Dose 30 ML; Start 04/01/16 at 19:30 Lorazepam (Ativan) 0.5 mg Q6H PRN IV ANXIETY Last administered on 04/15/16 05: 33; Admin Dose 0.5 MG; Start 04/01/16 at 19:30 Hydralazine HCl (Apresoline) 10 mg Q6H PRN IV ELEVATED BLOOD PRESSURE; Start at 19:30 Nitroglycerin (Nitroglycerin (Sl Tab) 0.4 Mg) 1 tab Q5M PRN SL ANGINA; Start at 19:30 Acetaminophen/ Hydrocodone Bitart ([place] (5/325)) 1 tab Q4H PRN PO PAIN LEVEL 4 -7; Start 04/12/16 at 15:00 Acetaminophen/ Hydrocodone Bitart ([place] (5/325)) 2 tab Q4H PRN PO PAIN LEVEL 7 -10 Last administered on 04/20/16 23:50; Admin Dose 2 TAB; Start 04/12/16 at 15 :00 Hydromorphone HCl (Dilaudid) 0.5 mg Q2 PRN IV PAIN; Start 04/12/16 at 15:00 Hydromorphone HCl (Dilaudid) 1 mg Q2 PRN IV PAIN Last administered on 11:13; Admin Dose 1 MG; Start 04/12/16 at 15:00 Docusate Sodium (Colace) 100 mg BID PRN PO CONSTIPATION Last administered on 20:31; Admin Dose 100 MG; Start 04/12/16 at 15:00 Bisacodyl (Dulcolax Supp) 10 mg BID PRN [place] CONSTIPATION; Start 04/12/16 at 15: 00 Famotidine (Pepcid) 40 mg HS PO Last administered on 04/20/16 20:44; Admin Dose 40 MG; Start 04/14/16 at 21:00 Collagenase (Santyl) 1 applic DAILY TOP Last administered on 04/21/16 08:52; Admin Dose 1 APPLIC; Start 04/15/16 at 13:00 Oxycodone/ Acetaminophen (Percocet (5/ 325)) 1 tab Q4H PRN PO PAIN; Start 04/17 at 14:30 Oxycodone/ Acetaminophen 2 tab 2 tab Q4H PRN PO PAIN Last administered on 02:58; Admin Dose 2 TAB; Start 04/17/16 at 14:30 Ciprofloxacin/ Dextrose (Cipro Ivpb) 200 ml @ 200 mls/hr Q12 IVPB Last administered on 04/21/16 08:52; Admin Dose 200 MLS/HR; Start 04/18/16 at 13:00 Phenazopyridine HCl (Pyridium) 200 mg TID PO Last administered on 04/21/16 08: 52; Admin Dose 200 MG; Start 04/18/16 at 14:00 Al Hydrox/Mg Hydrox/ Simethicone 30 ml 30 ml QID PRN PO GASTROINTESTINAL UPSET Last administered on 04/20/16 14:00; Admin Dose 30 ML; Start 04/18/16 at 17:30 Ferric Sodium Gluconate Complex/ Sodium Chloride (Ferrlecit/NS) 110 ml @ 110 mls/hr Q24H IVPB Last administered on 04/20/16 22:34; Admin Dose 110 MLS/HR; Start 04/18/16 at 23:00; Stop 04/25/16 at 23:59 Furosemide (Lasix) 40 mg DAILY IV Last administered on 04/21/16 08:52; Admin Dose 40 MG; Start 04/20/16 at 16:00 JASMINA PALOMARES MD Apr 21, 2016 12:59
[2016-04-21] MEDS: FAMOTIDINE 20 MG TAB PO SCH (20:18)
[2016-04-21 21:25] VITALS: BP 148/69; RESP 19
[2016-04-21] MEDS: SOD FERRIC GLUC COMPLX 125 MG in SOD CHLORIDE 0.9% 100 ML IVPB SCH (22:33)
[2016-04-21] MEDS: AL HYDROX/MG HYDROX/SIMETH 30 ML CUP PO PRN (22:38)
[2016-04-22] MEDS: HYDROmorphONE 1 MG/ML SYG IV PRN ×7 (00:25→14:42)
[2016-04-22] MEDS: ZOLPIDEM 5 MG TAB PO PRN (00:26)
[2016-04-22 05:43] LABS: CREATININE 0.59 mg/dl (0.61-1.24)
[2016-04-22 05:44] LABS: CALCIUM 7.2 mg/dl (8.4-10.2)
[2016-04-22 05:47] LABS: POTASSIUM 2.9 mmol/L (3.5-5.1)
[2016-04-22] MEDS: POTASSIUM CHLORIDE (SR) 20 MEQ TAB PO SCH ×2 (06:06→09:14)
[2016-04-22 06:49] LABS: BASOPHILS % 0.7 % (0.0-2.0); EOSINOPHILS % 0.6 % (0.0-7.0); HEMATOCRIT 27.3 % (42.0-52.0); LYMPHOCYTES # 0.8 10^3/ul (0.8-2.9); LYMPHOCYTES % 14.6 % (15.0-51.0); MEAN CORPUSCULAR HEMOGLOBIN 24.5 pg (29.0-33.0); MEAN CORPUSCULAR HGB CONC 32.8 g/dl (32.0-37.0); MEAN CORPUSCULAR VOLUME 74.8 fl (82.0-101.0); MEAN PLATELET VOLUME 6.6 fl (7.4-10.4); MONOCYTE # 0.4 10^3/ul (0.3-0.9); MONOCYTES % 7.2 % (0.0-11.0); NEUTROPHIL # 4.3 10^3/ul (1.6-7.5); NEUTROPHILS % 76.9 % (39.0-77.0); PLATELET COUNT 493 10^3/UL (140-440); RED BLOOD COUNT 3.65 10^6/ul (4.70-6.10); RED CELL DISTRIBUTION WIDTH 23.7 % (11.5-14.5); UNCORRECTED WBC 5.6 10^3/ul (4.8-10.8); WHITE BLOOD COUNT 5.6 10^3/ul (4.8-10.8)
[2016-04-22 06:54] LABS: CONDITION 1; LH ANALYZER COMMENTS 1
[2016-04-22 08:57] VITALS: BP 141/69; RESP 18
[2016-04-22] MEDS: CIPROFLOXACIN 400MG/D5W 200 ML IVPB SCH (09:13)
[2016-04-22] MEDS: PHENAZOPYRIDINE 200 MG TAB PO SCH ×3 (09:14→20:25)
[2016-04-22] MEDS: COLLAGENASE 30 GM TUBE TOP SCH (09:15)
[2016-04-22] MEDS: FUROSEMIDE 40 MG INJ IV SCH (09:15)
--- NOTE | 2016-04-22 13:33 | PN ---
Date/Time of Note Date/Time of Note DATE: 04/22/16 TIME: 13:31 Assessment/Plan VTE Prophylaxis VTE Prophylaxis Intervention: SCD's Lines/Catheters IV [facility]from [facility] Saline Lock Urinary Cath still in place: No Assessment/Plan Chief Complaint/Hosp Course Assessment and plan 1. Abdominal pain likely secondary to ileus. Patient status post resection of terminal ileum and cecum with primary anastomosis we also resection of sigmoid colon and placement of colostomy on 04/12/2016. Continue postop care. Continue with wound care. 2. Ulcerative esophagitis. cont PPI 3. Gastritis. Continue on PPI 4. Moderately differentiated carcinoma of the rectum. Vision status post resection of terminal ileum and cecum with primary anastomosis. Colostomy now in place. Continue with oncology and surgical recommendations. 5. Iron deficiency anemia. Continue iron supplement 6. Essential hypertension. Provide with antihypertensives as needed. Stable at present 7. Depression. cont on duloxetine DVT prophylaxis: SCDs GERD prophylaxis: PPI Disposition and plan: d/c planning. Discussed with patient, plan for patient to go home with home health services. Case management following. Case management did report they are unable to set up home health services today. Will set up for possible discharge in a.m. once home health services set up Discussed plan of care with Dr. Kwong Problems: Subjective 24 Hr Interval Summary Free Text/Dictation no s/s of distress Exam/Review of Systems Vital Signs Vitals Vital Signs Date Time Temp Pulse Resp B/P Pulse Ox O2 Delivery O2 Flow Rate FiO2 04/22/16 08:57 98.0 70 18 141/69 97 Intake and Output 04/21/16 04/21/16 04/22/16 15:00 23:00 07:00 Intake Total 1300 ml 790 ml Output Total 1200 ml 1100 ml Balance 100 ml -310 ml Exam General: No apparent distress. Frail in appearance Eyes: pupils equal round, Anicteric sclera Neck: Supple nontender, no JVD Cardiac: S1, S2 auscultated, regular rhythm and rate Pulmonary: No coarse rhonchi or breathing auscultated GI: [Colostomy site on left abdominal quadrant Extremities: No edema bilateral lower extremities Skin: [Decubitus ulcer Neurologic: Alert to person place and time and situation Results Result Diagram: 04/22/16 0401 04/22/16 0410 Results 24 hrs Laboratory Tests Test 04/22/16 04:01 04/22/16 04:10 04/22/16 07:53 Basophils # 0.0 Basophils % 0.7 Blood Morphology Comment Eosinophils # 0.0 Eosinophils % 0.6 Hematocrit 27.3 L Hemoglobin 9.0 L Lymphocytes # 0.8 Lymphocytes % 14.6 L Mean Corpuscular Hemoglobin 24.5 L Mean Corpuscular Hemoglobin Concent 32.8 Mean Corpuscular Volume 74.8 L Mean Platelet Volume 6.6 L Monocytes # 0.4 Monocytes % 7.2 Neutrophils # 4.3 Neutrophils % 76.9 Nucleated Red Blood Cells # 0.0 Nucleated Red Blood Cells % 0.0 Platelet Count 493 H Red Blood Count 3.65 L Red Cell Distribution Width 23.7 H White Blood Count 5.6 Anion Gap 8 Blood Urea Nitrogen 7 Calcium Level 7.2 L Carbon Dioxide Level 29 Chloride Level 99 Creatinine 0.59 L Glucose Level 82 Potassium Level 2.9 *L Sodium Level 133 L Lab Scanned Report REFERENCE LAB Medications Medications Current Medications Ondansetron HCl (Zofran Inj) 4 mg Q6H PRN IV NAUSEA AND/OR VOMITING Last administered on 04/16/16 12:31; Admin Dose 4 MG; Start 04/01/16 at 19:30 Acetaminophen (Tylenol Tab) 650 mg Q6H PRN PO PAIN LEVEL 1-3 OR FEVER Last administered on 04/03/16 19:12; Admin Dose 650 MG; Start 04/01/16 at 19:30 Magnesium Hydroxide (Milk Of Mag) 30 ml DAILY PRN PO CONSTIPATION Last administered on 04/18/16 06:14; Admin Dose 30 ML; Start 04/01/16 at 19:30 Lorazepam (Ativan) 0.5 mg Q6H PRN IV ANXIETY Last administered on 04/15/16 05: 33; Admin Dose 0.5 MG; Start 04/01/16 at 19:30 Hydralazine HCl (Apresoline) 10 mg Q6H PRN IV ELEVATED BLOOD PRESSURE; Start at 19:30 Nitroglycerin (Nitroglycerin (Sl Tab) 0.4 Mg) 1 tab Q5M PRN SL ANGINA; Start at 19:30 Acetaminophen/ Hydrocodone Bitart ([place] (5/325)) 1 tab Q4H PRN PO PAIN LEVEL 4 -7; Start 04/12/16 at 15:00 Acetaminophen/ Hydrocodone Bitart ([place] (5/325)) 2 tab Q4H PRN PO PAIN LEVEL 7 -10 Last administered on 04/20/16 23:50; Admin Dose 2 TAB; Start 04/12/16 at 15 :00 Hydromorphone HCl (Dilaudid) 0.5 mg Q2 PRN IV PAIN; Start 04/12/16 at 15:00 Hydromorphone HCl (Dilaudid) 1 mg Q2 PRN IV PAIN Last administered on 12:22; Admin Dose 1 MG; Start 04/12/16 at 15:00 Docusate Sodium (Colace) 100 mg BID PRN PO CONSTIPATION Last administered on 20:31; Admin Dose 100 MG; Start 04/12/16 at 15:00 Bisacodyl (Dulcolax Supp) 10 mg BID PRN [place] CONSTIPATION; Start 04/12/16 at 15: 00 Famotidine (Pepcid) 40 mg HS PO Last administered on 04/21/16 20:18; Admin Dose 40 MG; Start 04/14/16 at 21:00 Collagenase (Santyl) 1 applic DAILY TOP Last administered on 04/22/16 09:15; Admin Dose 1 APPLIC; Start 04/15/16 at 13:00 Oxycodone/ Acetaminophen (Percocet (5/ 325)) 1 tab Q4H PRN PO PAIN; Start 04/17 at 14:30 Oxycodone/ Acetaminophen 2 tab 2 tab Q4H PRN PO PAIN Last administered on 23:47; Admin Dose 2 TAB; Start 04/17/16 at 14:30 Ciprofloxacin/ Dextrose (Cipro Ivpb) 200 ml @ 200 mls/hr Q12 IVPB Last administered on 04/22/16 09:13; Admin Dose 200 MLS/HR; Start 04/18/16 at 13:00 Phenazopyridine HCl (Pyridium) 200 mg TID PO Last administered on 04/22/16 12: 22; Admin Dose 200 MG; Start 04/18/16 at 14:00 Al Hydrox/Mg Hydrox/ Simethicone 30 ml 30 ml QID PRN PO GASTROINTESTINAL UPSET Last administered on 04/21/16 22:38; Admin Dose 30 ML; Start 04/18/16 at 17:30 Ferric Sodium Gluconate Complex/ Sodium Chloride (Ferrlecit/NS) 110 ml @ 110 mls/hr Q24H IVPB Last administered on 04/21/16 22:33; Admin Dose 110 MLS/HR; Start 04/18/16 at 23:00; Stop 04/25/16 at 23:59 Furosemide (Lasix) 40 mg DAILY IV Last administered on 04/22/16 09:15; Admin Dose 40 MG; Start 04/20/16 at 16:00 GLORY CHEW Apr 22, 2016 13:32
--- NOTE | 2016-04-22 17:53 | PN ---
Date/Time of Note Date/Time of Note DATE: 04/22/16 TIME: 17:51 Assessment/Plan Lines/Catheters IV Catheter Type (from Nrsg): Saline Lock Coates in Place (from Nrsg): No Assessment/Plan Assessment/Plan [facility] Progress Note Date of Service: 04/22/16 Today's Impression & Plan: Overall stable and improving. No major post surgical issues. Ok to d/c from my standpoint. With above assessment, I've recommended the following for today: 1. D/c home when ok by other MD's 2. F/u with me in the office in 2-3 weeks 3. Will follow from [facility] over the weekend. Please call if any questions. 4. More diuresis for his edema 5. No more IV Dilaudid please; patient agreed to take pain pills orally 6. D/c miriam in the office given history of radiation in the past Thank you again for your great care of this very pleasant patient and wonderful family. If there are any questions, please feel free to call me at [phone]. TOTAL VISIT TIME: 20 minutes of which more than half was spent in [id number] discussion with the patient, possibly including family, as well as coordination of care between multiple physicians and providers. Disclaimer: Inadvertent spelling or grammatical errors are likely due to EHR/ dictation software use and do not reflect on the overall quality of patient care. Updated Clinical Summary: The patient is a very pleasant 65-year-old gentleman with comorbidities including hypertension, who was initially admitted to [facility] through ED on 2015 with signs and symptoms consistent with anemia that eventually was shown to be a large, nearly obstructing mass approximately 12 cm from the anal verge up to the area of the rectosigmoid junction on colonoscopy 06/07/2015. Plan at that time was neoadjuvant treatment with chemoradiation followed by restaging and surgical resection. Patient underwent radiation therapy (Dr. Aranda) that ended September 2015 (patient's recollection was November 2015). Discussions with multiple colleagues revealed evidence that the patient had been not following instructions and there were barriers to get the patient to surgical intervention. At least part of the barriers were due to patient factors alone. Patient reported having contacted my office approximately 5 times to try and make an appointment and was told that we "do not accept" his insurance. Careful review of office records showed no documentation of patient calling. Patient also believed that he had had [employer] as his insurance carrier, but his insurance carrier was [employer] (accepted by our program). Patient re-presented to [facility] through ED with constipation, vomiting, abdominal distension and dilated loops of small intestine on 04/01/16. Significant comorbidities included not insignificant malnutrition with BMI 15.8 and dehydration, albumin of 3.6 in the setting of inability to feed enterically. Small area of liver in segment 6 and two very small areas in segment 4a of questionable significance (too small to tell) benign path vs. metastatic disease. We attempted to treat the bowel obstruction with nonoperative management with the hope that the patient would be able to increase his oral intake and improve his nutritional status prior to potentially getting systemic chemotherapy in the neoadjuvant fashion before surgical intervention. Patient very clearly showed us that his bowels were not able to tolerate any meaningful amount of nutritional intake after a few days of this management and for this reason, and after a multidisciplinary discussion, we decided to change our treatment strategy and take the patient to the operating room. List of operative interventions on 04/12/16: 1. Laparoscopic exploration converted to open exploration 2. Partial colectomy with removal of upper part of rectum and sigmoid colon ( modifier 22) 3. Resection of the end of terminal ileum along with cecum with primary anastomosis 4. Performance of an colostomy using distal descending colon 5. Extensive lysis of adhesions (at least 60 minutes) 6. Intraoperative ultrasound of the liver 7. Abdominal lavage Comorbidities: 1. Rectal malignancy, s/p chemotherapy and radiation June to Nov 2015; obstruction end of terminal ileum as well as at the level of the rectosigmoid junction with aggressive locally advanced rectal cancer; S/p an otherwise uncomplicated but challenging resection of both involved portions of rectosigmoid as well as terminal ileum in the setting of aggressive rectal cancer with local invasion of the pelvis on 04/13/16. 2. Hypertension 3. Cachexia; BMI 15.8; albumin of 3.6 in the setting of inability to feed enterically 4. Colonoscopy June 2015 5. Anxiety Subjective: No reported major events or complaints; reports feeling well; no major abd pain and under control with medications; still on IV Dilaudid; no nausea; no vomiting ; no sob or cp; + flatus; + BM; increasing activity Objective: Vitals: See below Exam: GENERAL: On exam, the patient was standing up in his room and appeared to be comfortable and in no acute distress. ABDOMEN: Soft, nontender and nondistended. There are no peritoneal signs or guarding. Incisions c/d/i w/o obvious underlying e/e/d/h. Ostomy pink, viable and productive. Drain site clean without discharge. SKIN: Skin appears to be pink and feels warm to touch. NEUROLOGIC: Patient is awake, alert, and follows commands appropriately. Exam/Review of Systems Vital Signs Vitals Vital Signs Date Time Temp Pulse Resp B/P Pulse Ox O2 Delivery O2 Flow Rate FiO2 04/22/16 08:57 98.0 70 18 141/69 97 Intake and Output 04/21/16 04/21/16 04/22/16 15:00 23:00 07:00 Intake Total 1300 ml 790 ml Output Total 1200 ml 1100 ml Balance 100 ml -310 ml Results Result Diagram: 04/22/16 0401 04/22/16 0410 DIVINE BEY M.D. Apr 22, 2016 17:53
[2016-04-22] MEDS ORDERED: KETOROLAC 30 MG INJ IV PRN (18:00)
[2016-04-22] MEDS: CIPROFLOXACIN 500 MG TAB PO SCH (18:05)
[2016-04-22] MEDS: HYDROCODONE/APAP (5/325) TAB PO PRN (18:06)
[2016-04-22] MEDS: FUROSEMIDE 20 MG INJ IV SCH ×2 (18:06→23:03)
--- NOTE | 2016-04-22 19:12 | CONS ---
Date/Time of Note Date/Time of Note DATE: 04/22/16 TIME: 19:11 Assessment/Plan Assessment/Plan Chief Complaint/Hosp Course ABD PAIN, vomiting, and constipation- SBO VS ILEUS RECTAL ADENOCARCINOMA- POST NEOADJUVANT chemo/xrt CEA-N CONT POSTOP CARE PATH- PATHOLOGIC STAGING (pTNM): pT4b pN0. MODIFIED ASTLER-COLLER STAGE: MAC B3 PLAN- POST OP CHEMO SEVERE IRON DEFICIENCY WITH Microcytic, hypochromic anemia , POST PRBC MONITOR BLOOD COUNT CLOSELY h/h- ON LOW SIDE no bleeding on IV IRON PRBC PRN Distal esophagitis with gastritis. Continue proton pump inhibitors. HTN POOR COMPLIANCE Problems: Consultation Date/Type/Reason Admit Date/Time Apr 01, 2016 at 18:54 Type of Consultation: HEMEON Referring Provider: LINDA WALDROP MD 24 HR Interval Summary Free Text/Dictation all noted improving post op Exam/Review of Systems Vital Signs Vitals Vital Signs Date Time Temp Pulse Resp B/P Pulse Ox O2 Delivery O2 Flow Rate FiO2 04/22/16 08:57 98.0 70 18 141/69 97 Intake and Output 04/21/16 04/21/16 04/22/16 15:00 23:00 07:00 Intake Total 1300 ml 790 ml Output Total 1200 ml 1100 ml Balance 100 ml -310 ml Exam General: No apparent distress. Frail in appearance Eyes: pupils equal round, Anicteric sclera Neck: Supple nontender, no JVD Cardiac: S1, S2 auscultated, regular rhythm and rate Pulmonary: No coarse rhonchi or breathing auscultated GI: [Colostomy site on left abdominal quadrant Extremities: No edema bilateral lower extremities Skin: [Decubitus ulcer Neurologic: Alert to person place and time and situation Results Result Diagram: 04/22/16 0401 04/22/16 0410 Results 24 hrs Laboratory Tests Test 04/22/16 04:01 04/22/16 04:10 04/22/16 07:53 Basophils # 0.0 Basophils % 0.7 Blood Morphology Comment Eosinophils # 0.0 Eosinophils % 0.6 Hematocrit 27.3 L Hemoglobin 9.0 L Lymphocytes # 0.8 Lymphocytes % 14.6 L Mean Corpuscular Hemoglobin 24.5 L Mean Corpuscular Hemoglobin Concent 32.8 Mean Corpuscular Volume 74.8 L Mean Platelet Volume 6.6 L Monocytes # 0.4 Monocytes % 7.2 Neutrophils # 4.3 Neutrophils % 76.9 Nucleated Red Blood Cells # 0.0 Nucleated Red Blood Cells % 0.0 Platelet Count 493 H Red Blood Count 3.65 L Red Cell Distribution Width 23.7 H White Blood Count 5.6 Anion Gap 8 Blood Urea Nitrogen 7 Calcium Level 7.2 L Carbon Dioxide Level 29 Chloride Level 99 Creatinine 0.59 L Glucose Level 82 Potassium Level 2.9 *L Sodium Level 133 L Lab Scanned Report REFERENCE LAB Medications Medications Current Medications Ondansetron HCl (Zofran Inj) 4 mg Q6H PRN IV NAUSEA AND/OR VOMITING Last administered on 04/16/16 12:31; Admin Dose 4 MG; Start 04/01/16 at 19:30 Acetaminophen (Tylenol Tab) 650 mg Q6H PRN PO PAIN LEVEL 1-3 OR FEVER Last administered on 04/03/16 19:12; Admin Dose 650 MG; Start 04/01/16 at 19:30 Magnesium Hydroxide (Milk Of Mag) 30 ml DAILY PRN PO CONSTIPATION Last administered on 04/18/16 06:14; Admin Dose 30 ML; Start 04/01/16 at 19:30 Lorazepam (Ativan) 0.5 mg Q6H PRN IV ANXIETY Last administered on 04/15/16 05: 33; Admin Dose 0.5 MG; Start 04/01/16 at 19:30 Hydralazine HCl (Apresoline) 10 mg Q6H PRN IV ELEVATED BLOOD PRESSURE; Start at 19:30 Nitroglycerin (Nitroglycerin (Sl Tab) 0.4 Mg) 1 tab Q5M PRN SL ANGINA; Start at 19:30 Acetaminophen/ Hydrocodone Bitart ([place] (5/325)) 1 tab Q4H PRN PO PAIN LEVEL 4 -7; Start 04/12/16 at 15:00 Acetaminophen/ Hydrocodone Bitart ([place] (5/325)) 2 tab Q4H PRN PO PAIN LEVEL 7 -10 Last administered on 04/22/16 18:06; Admin Dose 2 TAB; Start 04/12/16 at 15 :00 Hydromorphone HCl (Dilaudid) 0.5 mg Q2 PRN IV PAIN; Start 04/12/16 at 15:00 Hydromorphone HCl (Dilaudid) 1 mg Q2 PRN IV PAIN Last administered on 14:42; Admin Dose 1 MG; Start 04/12/16 at 15:00 Docusate Sodium (Colace) 100 mg BID PRN PO CONSTIPATION Last administered on 20:31; Admin Dose 100 MG; Start 04/12/16 at 15:00 Bisacodyl (Dulcolax Supp) 10 mg BID PRN [place] CONSTIPATION; Start 04/12/16 at 15: 00 Famotidine (Pepcid) 40 mg HS PO Last administered on 04/21/16 20:18; Admin Dose 40 MG; Start 04/14/16 at 21:00 Collagenase (Santyl) 1 applic DAILY TOP Last administered on 04/22/16 09:15; Admin Dose 1 APPLIC; Start 04/15/16 at 13:00 Oxycodone/ Acetaminophen (Percocet (5/ 325)) 1 tab Q4H PRN PO PAIN; Start 04/17 at 14:30 Oxycodone/ Acetaminophen (Percocet (5/ 325)) 2 tab Q4H PRN PO PAIN Last administered on 04/21/16 23:47; Admin Dose 2 TAB; Start 04/17/16 at 14:30 Phenazopyridine HCl (Pyridium) 200 mg TID PO Last administered on 04/22/16 12: 22; Admin Dose 200 MG; Start 04/18/16 at 14:00 Al Hydrox/Mg Hydrox/ Simethicone 30 ml 30 ml QID PRN PO GASTROINTESTINAL UPSET Last administered on 04/21/16 22:38; Admin Dose 30 ML; Start 04/18/16 at 17:30 Ferric Sodium Gluconate Complex/ Sodium Chloride (Ferrlecit/NS) 110 ml @ 110 mls/hr Q24H IVPB Last administered on 04/21/16 22:33; Admin Dose 110 MLS/HR; Start 04/18/16 at 23:00; Stop 04/25/16 at 23:59 Ciprofloxacin (Cipro) 500 mg BID@06,18 PO Last administered on 04/22/16 18:05 ; Admin Dose 500 MG; Start 04/22/16 at 18:00 Ketorolac Tromethamine (Toradol) 30 mg Q6H PRN IV PAIN; Start 04/22/16 at 18:00 ; Stop 04/25/16 at 17:59 Furosemide (Lasix) 20 mg Q6 IV Last administered on 04/22/16t 18:06; Admin Dose 20 MG; Start 04/22/16 at 18:00; Stop 04/23/16 at 12:01 JASMINA PALOMARES MD Apr 22, 2016 19:12
[2016-04-22] MEDS: FAMOTIDINE 20 MG TAB PO SCH (20:25)
[2016-04-22] MEDS: AL HYDROX/MG HYDROX/SIMETH 30 ML CUP PO PRN (20:39)
[2016-04-22] MEDS: SOD FERRIC GLUC COMPLX 125 MG in SOD CHLORIDE 0.9% 100 ML IVPB SCH (23:03)
[2016-04-23] MEDS: ZOLPIDEM 5 MG TAB PO PRN (01:37)
[2016-04-23] MEDS: HYDROCODONE/APAP (5/325) TAB PO PRN ×2 (01:43→09:25)
[2016-04-23] MEDS: CIPROFLOXACIN 500 MG TAB PO SCH ×2 (06:47→17:54)
[2016-04-23] MEDS: FUROSEMIDE 20 MG INJ IV SCH ×2 (06:49→12:18)
[2016-04-23 08:24] VITALS: BP 142/68; RESP 14
--- NOTE | 2016-04-23 08:48 | PN ---
Date/Time of Note Date/Time of Note DATE: 04/23/16 TIME: 08:46 Assessment/Plan Lines/Catheters IV Catheter Type (from Nrs): Saline Lock Coates in Place (from Nrs): No Assessment/Plan Assessment/Plan [facility] Progress Note Date of Service: 04/23/16 Today's Impression & Plan: Overall stable and improving. No major post surgical issues. Ok to d/c from my standpoint. With above assessment, I've recommended the following for today: 1. D/c home when ok by other MD's 2. F/u with me in the office in 2-3 weeks 3. If heartburn/GI complaints regarding pill intake continue and hamper discharge plans, would recommend GI evaluation for possible upper endoscopy. 4. Cont diuresis for his edema 5. No more IV Dilaudid please; patient agreed to take pain pills orally 6. D/c miriam in the office given history of radiation in the past 7. Will sign off. Please have patient follow up with me in my office in 1-2 weeks Thank you again for your great care of this very pleasant patient and wonderful family. If there are any questions, please feel free to call me at [phone]. TOTAL VISIT TIME: 20 minutes of which more than half was spent in [id number] discussion with the patient, possibly including family, as well as coordination of care between multiple physicians and providers. Disclaimer: Inadvertent spelling or grammatical errors are likely due to EHR/ dictation software use and do not reflect on the overall quality of patient care. Updated Clinical Summary: The patient is a very pleasant 65-year-old gentleman with comorbidities including hypertension, who was initially admitted to [facility] through ED on 2015 with signs and symptoms consistent with anemia that eventually was shown to be a large, nearly obstructing mass approximately 12 cm from the anal verge up to the area of the rectosigmoid junction on colonoscopy 06/07/2015. Plan at that time was neoadjuvant treatment with chemoradiation followed by restaging and surgical resection. Patient underwent radiation therapy (Dr. Aranda) that ended September 2015 (patient's recollection was November 2015). Discussions with multiple colleagues revealed evidence that the patient had been not following instructions and there were barriers to get the patient to surgical intervention. At least part of the barriers were due to patient factors alone. Patient reported having contacted my office approximately 5 times to try and make an appointment and was told that we "do not accept" his insurance. Careful review of office records showed no documentation of patient calling. Patient also believed that he had had [employer] as his insurance carrier, but his insurance carrier was [employer] (accepted by our program). Patient re-presented to [facility] through ED with constipation, vomiting, abdominal distension and dilated loops of small intestine on 04/01/16. Significant comorbidities included not insignificant malnutrition with BMI 15.8 and dehydration, albumin of 3.6 in the setting of inability to feed enterically. Small area of liver in segment 6 and two very small areas in segment 4a of questionable significance (too small to tell) benign path vs. metastatic disease. We attempted to treat the bowel obstruction with nonoperative management with the hope that the patient would be able to increase his oral intake and improve his nutritional status prior to potentially getting systemic chemotherapy in the neoadjuvant fashion before surgical intervention. Patient very clearly showed us that his bowels were not able to tolerate any meaningful amount of nutritional intake after a few days of this management and for this reason, and after a multidisciplinary discussion, we decided to change our treatment strategy and take the patient to the operating room. List of operative interventions on 04/12/16: 1. Laparoscopic exploration converted to open exploration 2. Partial colectomy with removal of upper part of rectum and sigmoid colon ( modifier 22) 3. Resection of the end of terminal ileum along with cecum with primary anastomosis 4. Performance of an colostomy using distal descending colon 5. Extensive lysis of adhesions (at least 60 minutes) 6. Intraoperative ultrasound of the liver 7. Abdominal lavage Comorbidities: 1. Rectal malignancy, s/p chemotherapy and radiation June to Nov 2015; obstruction end of terminal ileum as well as at the level of the rectosigmoid junction with aggressive locally advanced rectal cancer; S/p an otherwise uncomplicated but challenging resection of both involved portions of rectosigmoid as well as terminal ileum in the setting of aggressive rectal cancer with local invasion of the pelvis on 04/13/16. 2. Hypertension 3. Cachexia; BMI 15.8; albumin of 3.6 in the setting of inability to feed enterically 4. Colonoscopy June 2015 5. Anxiety Subjective: No reported major events or complaints; reports feeling well; no major abd pain and under control with medications; still on IV Dilaudid, but did take pills last night (complained of heartburn afterwards); no nausea; no vomiting; no sob or cp; + flatus; + BM; increasing activity Objective: Vitals: See below Exam: GENERAL: On exam, the patient was standing up in his room and appeared to be comfortable and in no acute distress. ABDOMEN: Soft, nontender and nondistended. There are no peritoneal signs or guarding. Incisions c/d/i w/o obvious underlying e/e/d/h. Ostomy pink, viable and productive. Drain site clean without discharge. SKIN: Skin appears to be pink and feels warm to touch. NEUROLOGIC: Patient is awake, alert, and follows commands appropriately. Exam/Review of Systems Vital Signs Vitals Vital Signs Date Time Temp Pulse Resp B/P Pulse Ox O2 Delivery O2 Flow Rate FiO2 04/23/16 08:24 98.0 78 14 142/68 98 Intake and Output 04/22/16 04/22/16 04/23/16 15:00 23:00 07:00 Intake Total 880 ml Output Total 2700 ml Balance -1820 ml Results Result Diagram: 04/22/16 0401 04/22/16 0410 DIVINE BEY M.D. Apr 23, 2016 08:48
[2016-04-23] MEDS: COLLAGENASE 30 GM TUBE TOP SCH (09:25)
[2016-04-23] MEDS: PHENAZOPYRIDINE 200 MG TAB PO SCH ×2 (09:25→12:16)
--- NOTE | 2016-04-23 10:26 | CONS ---
Date/Time of Note Date/Time of Note DATE: 04/23/16 TIME: 10:26 Assessment/Plan Assessment/Plan Chief Complaint/Hosp Course ABD PAIN, vomiting, and constipation- SBO VS ILEUS RECTAL ADENOCARCINOMA- POST NEOADJUVANT chemo/xrt CEA-N CONT POSTOP CARE PATH- PATHOLOGIC STAGING (pTNM): pT4b pN0. MODIFIED ASTLER-COLLER STAGE: MAC B3 PLAN- POST OP CHEMO SEVERE IRON DEFICIENCY WITH Microcytic, hypochromic anemia , POST PRBC MONITOR BLOOD COUNT CLOSELY h/h- ON LOW SIDE no bleeding on IV IRON PRBC PRN Distal esophagitis with gastritis. Continue proton pump inhibitors. HTN POOR COMPLIANCE Problems: Consultation Date/Type/Reason Admit Date/Time Apr 01, 2016 at 18:54 [facility] Referring Provider: LINDA WALDROP MD Exam/Review of Systems Vital Signs Vitals Vital Signs Date Time Temp Pulse Resp B/P Pulse Ox O2 Delivery O2 Flow Rate FiO2 04/23/16 08:24 98.0 78 14 142/68 98 Intake and Output 04/22/16 04/22/16 04/23/16 15:00 23:00 07:00 Intake Total 880 ml Output Total 2700 ml Balance -1820 ml Results Result Diagram: 04/22/16 0401 04/22/16 0410 Results 24 hrs Laboratory Tests Test 04/22/16 19:50 Plasma Potassium 3.3 Medications Medications Current Medications Ondansetron HCl (Zofran Inj) 4 mg Q6H PRN IV NAUSEA AND/OR VOMITING Last administered on 04/16/16 12:31; Admin Dose 4 MG; Start 04/01/16 at 19:30 Acetaminophen (Tylenol Tab) 650 mg Q6H PRN PO PAIN LEVEL 1-3 OR FEVER Last administered on 04/03/16 19:12; Admin Dose 650 MG; Start 04/01/16 at 19:30 Magnesium Hydroxide (Milk Of Mag) 30 ml DAILY PRN PO CONSTIPATION Last administered on 04/18/16 06:14; Admin Dose 30 ML; Start 04/01/16 at 19:30 Lorazepam (Ativan) 0.5 mg Q6H PRN IV ANXIETY Last administered on 04/15/16 05: 33; Admin Dose 0.5 MG; Start 04/01/16 at 19:30 Hydralazine HCl (Apresoline) 10 mg Q6H PRN IV ELEVATED BLOOD PRESSURE; Start at 19:30 Nitroglycerin (Nitroglycerin (Sl Tab) 0.4 Mg) 1 tab Q5M PRN SL ANGINA; Start at 19:30 Acetaminophen/ Hydrocodone Bitart ([place] (5/325)) 1 tab Q4H PRN PO PAIN LEVEL 4 -7; Start 04/12/16 at 15:00 Acetaminophen/ Hydrocodone Bitart ([place] (5/325)) 2 tab Q4H PRN PO PAIN LEVEL 7 -10 Last administered on 04/23/16 09:25; Admin Dose 2 TAB; Start 04/12/16 at 15 :00 Hydromorphone HCl (Dilaudid) 0.5 mg Q2 PRN IV PAIN; Start 04/12/16 at 15:00 Hydromorphone HCl (Dilaudid) 1 mg Q2 PRN IV PAIN Last administered on 14:42; Admin Dose 1 MG; Start 04/12/16 at 15:00 Docusate Sodium (Colace) 100 mg BID PRN PO CONSTIPATION Last administered on 20:31; Admin Dose 100 MG; Start 04/12/16 at 15:00 Bisacodyl (Dulcolax Supp) 10 mg BID PRN [place] CONSTIPATION; Start 04/12/16 at 15: 00 Famotidine (Pepcid) 40 mg HS PO Last administered on 04/22/16 20:25; Admin Dose 40 MG; Start 04/14/16 at 21:00 Collagenase (Santyl) 1 applic DAILY TOP Last administered on 04/23/16 09:25; Admin Dose 1 APPLIC; Start 04/15/16 at 13:00 Oxycodone/ Acetaminophen (Percocet (5/ 325)) 1 tab Q4H PRN PO PAIN; Start 04/17 at 14:30 Oxycodone/ Acetaminophen (Percocet (5/ 325)) 2 tab Q4H PRN PO PAIN Last administered on 04/21/16 23:47; Admin Dose 2 TAB; Start 04/17/16 at 14:30 Phenazopyridine HCl (Pyridium) 200 mg TID PO Last administered on 04/23/16 09: 25; Admin Dose 200 MG; Start 04/18/16 at 14:00 Al Hydrox/Mg Hydrox/ Simethicone 30 ml 30 ml QID PRN PO GASTROINTESTINAL UPSET Last administered on 04/22/16 20:39; Admin Dose 30 ML; Start 04/18/16 at 17:30 Ferric Sodium Gluconate Complex/ Sodium Chloride (Ferrlecit/NS) 110 ml @ 110 mls/hr Q24H IVPB Last administered on 04/22/16 23:03; Admin Dose 110 MLS/HR; Start 04/18/16 at 23:00; Stop 04/25/16 at 23:59 Ciprofloxacin (Cipro) 500 mg BID@06,18 PO Last administered on 04/23/16 06:47 ; Admin Dose 500 MG; Start 04/22/16 at 18:00 Ketorolac Tromethamine (Toradol) 30 mg Q6H PRN IV PAIN Last administered on 23:03; Admin Dose 30 MG; Start 04/22/16 at 18:00; Stop 04/25/16 at 17:59 Furosemide (Lasix) 20 mg Q6 IV Last administered on 04/23/16 06:49; Admin Dose 20 MG; Start 04/22/16 at 18:00; Stop 04/23/16 at 12:01 JASMINA PALOMARES MD Apr 23, 2016 10:26
[2016-04-23] MEDS: AL HYDROX/MG HYDROX/SIMETH 30 ML CUP PO PRN (10:37)
[2016-04-23] MEDS ORDERED: LORA1TAB PO (11:41)
[2016-04-23] MEDS ORDERED: HYDR2TAB3 PO (11:41)
--- NOTE | 2016-04-23 11:42 | PN ---
Date/Time of Note Date/Time of Note DATE: 04/23/16 TIME: 11:41 Assessment/Plan VTE Prophylaxis VTE Prophylaxis Intervention: SCD's Lines/Catheters IV Catheter Type (from Nrs): Saline Lock Urinary Cath still in place: No Assessment/Plan Assessment/Plan 1. Abdominal pain likely secondary to ileus. Patient status post resection of terminal ileum and cecum with primary anastomosis we also resection of sigmoid colon and placement of colostomy on 04/12/2016. Continue postop care. Continue with wound care. 2. Ulcerative esophagitis. cont PPI 3. Gastritis. Continue on PPI 4. Moderately differentiated carcinoma of the rectum. Vision status post resection of terminal ileum and cecum with primary anastomosis. Colostomy now in place. Continue with oncology and surgical recommendations. 5. Iron deficiency anemia. Continue iron supplement 6. Essential hypertension. Provide with antihypertensives as needed. Stable at present 7. Depression. cont on duloxetine DVT prophylaxis: SCDs GERD prophylaxis: PPI d/c home tomorrow Subjective 24 Hr Interval Summary Free Text/Dictation c/o epigaastric pain, Low K< asking for iV pain meds Exam/Review of Systems Vital Signs Vitals Vital Signs Date Time Temp Pulse Resp B/P Pulse Ox O2 Delivery O2 Flow Rate FiO2 04/23/16 08:24 98.0 78 14 142/68 98 Intake and Output 04/22/16 04/22/16 04/23/16 15:00 23:00 07:00 Intake Total 880 ml Output Total 2700 ml Balance -1820 ml Exam General: No apparent distress. Frail in appearance Eyes: pupils equal round, Anicteric sclera Neck: Supple nontender, no JVD Cardiac: S1, S2 auscultated, regular rhythm and rate Pulmonary: No coarse rhonchi or breathing auscultated GI: [Colostomy site on left abdominal quadrant Extremities: No edema bilateral lower extremities Skin: [Decubitus ulcer Neurologic: Alert to person place and time and situation Results Result Diagram: 04/22/16 0401 04/22/16 0410 Results 24 hrs Laboratory Tests Test 04/22/16 19:50 Plasma Potassium 3.3 Medications Medications Current Medications Ondansetron HCl (Zofran Inj) 4 mg Q6H PRN IV NAUSEA AND/OR VOMITING Last administered on 04/16/16t 12:31; Admin Dose 4 MG; Start 04/01/16 at 19:30 Acetaminophen (Tylenol Tab) 650 mg Q6H PRN PO PAIN LEVEL 1-3 OR FEVER Last administered on 04/03/16 19:12; Admin Dose 650 MG; Start 04/01/16 at 19:30 Magnesium Hydroxide (Milk Of Mag) 30 ml DAILY PRN PO CONSTIPATION Last administered on 04/18/16 06:14; Admin Dose 30 ML; Start 04/01/16 at 19:30 Lorazepam (Ativan) 0.5 mg Q6H PRN IV ANXIETY Last administered on 04/15/16 05: 33; Admin Dose 0.5 MG; Start 04/01/16 at 19:30 Hydralazine HCl (Apresoline) 10 mg Q6H PRN IV ELEVATED BLOOD PRESSURE; Start at 19:30 Nitroglycerin (Nitroglycerin (Sl Tab) 0.4 Mg) 1 tab Q5M PRN SL ANGINA; Start at 19:30 Acetaminophen/ Hydrocodone Bitart ([place] (5/325)) 1 tab Q4H PRN PO PAIN LEVEL 4 -7; Start 04/12/16 at 15:00 Acetaminophen/ Hydrocodone Bitart ([place] (5/325)) 2 tab Q4H PRN PO PAIN LEVEL 7 -10 Last administered on 04/23/16 09:25; Admin Dose 2 TAB; Start 04/12/16 at 15 :00 Hydromorphone HCl (Dilaudid) 0.5 mg Q2 PRN IV PAIN; Start 04/12/16 at 15:00 Hydromorphone HCl (Dilaudid) 1 mg Q2 PRN IV PAIN Last administered on 14:42; Admin Dose 1 MG; Start 04/12/16 at 15:00 Docusate Sodium (Colace) 100 mg BID PRN PO CONSTIPATION Last administered on 20:31; Admin Dose 100 MG; Start 04/12/16 at 15:00 Bisacodyl (Dulcolax Supp) 10 mg BID PRN ME CONSTIPATION; Start 04/12/16 at 15: 00 Famotidine (Pepcid) 40 mg HS PO Last administered on 04/22/16 20:25; Admin Dose 40 MG; Start 04/14/16 at 21:00 Collagenase (Santyl) 1 applic DAILY TOP Last administered on 04/23/16 09:25; Admin Dose 1 APPLIC; Start 04/15/16 at 13:00 Oxycodone/ Acetaminophen (Percocet (5/ 325)) 1 tab Q4H PRN PO PAIN; Start 04/17 at 14:30 Oxycodone/ Acetaminophen (Percocet (5/ 325)) 2 tab Q4H PRN PO PAIN Last administered on 04/21/16 23:47; Admin Dose 2 TAB; Start 04/17/16 at 14:30 Phenazopyridine HCl (Pyridium) 200 mg TID PO Last administered on 04/23/16 09: 25; Admin Dose 200 MG; Start 04/18/16 at 14:00 Al Hydrox/Mg Hydrox/ Simethicone 30 ml 30 ml QID PRN PO GASTROINTESTINAL UPSET Last administered on 04/23/16 10:37; Admin Dose 30 ML; Start 04/18/16 at 17:30 Ferric Sodium Gluconate Complex/ Sodium Chloride (Ferrlecit/NS) 110 ml @ 110 mls/hr Q24H IVPB Last administered on 04/22/16 23:03; Admin Dose 110 MLS/HR; Start 04/18/16 at 23:00; Stop 04/25/16 at 23:59 Ciprofloxacin (Cipro) 500 mg BID@06,18 PO Last administered on 04/23/16 06:47 ; Admin Dose 500 MG; Start 04/22/16 at 18:00 Ketorolac Tromethamine (Toradol) 30 mg Q6H PRN IV PAIN Last administered on 23:03; Admin Dose 30 MG; Start 04/22/16 at 18:00; Stop 04/25/16 at 17:59 Furosemide 20 mg 20 mg Q6 IV Last administered on 04/23/16 06:49; Admin Dose 20 MG; Start 04/22/16 at 18:00; Stop 04/23/16 at 12:01 Potassium Chloride/Sodium Chloride (KCl/NS) 110 ml @ 55 mls/hr ONCE ONCE IVPB ; Start 04/23/16 at 12:00; Stop 04/23/16 at 13:59; Status UNLUPE JUARES MD Apr 23, 2016 11:42
[2016-04-23] MEDS ORDERED: POTASSIUM CHLORIDE 20 MEQ in SOD CHLORIDE 0.9% 100 ML IVPB ONE (14:00)
[2016-04-23] MEDS: OXYCODONE/ACETAMINOPHEN (5/325) TAB PO PRN (14:59)
[2016-04-23] MEDS: FAMOTIDINE 20 MG TAB PO SCH (17:54)
--- NOTE | 2016-04-24 21:44 | DS ---
DATE OF ADMISSION: 04/01/2016 DATE OF DISCHARGE: 04/23/2016 FINAL DISCHARGE DIAGNOSES: 1. Small-bowel obstruction, status post resection of terminal ileum and cecum with a primary anasto mosis, also the resection of sigmoid colon and placement of colostomy tube. 2. Ulcerative esophagitis. 3. Acute gastritis. 4. Moderately differentiated carcinoma of the rectum. 5. Iron deficiency anemia. 6. Essential hypertension. 7. Depression. CONSULTATIONS DONE DURING THIS HOSPITALIZATION: 1. General surgery consult, Dr. Dustin Juárez 2. Oncology consult, Dr. Kisha Zapien [facility] COURSE: This is a 65-year-old male who presented with abdominal pain. The patient had a m oderately differentiated carcinoma of the rectum. He had a small-bowel obstruction and ileus for wh ich he had a surgery done and underwent resection of the terminal ileum and cecum with a primary perla stomosis, also had a resection of the sigmoid colon and placement of a colostomy tube. The patient was followed by Oncology, Dr. Kisha Zapien, and General Surgery, Dr. Dustin Juárez. He slowly gra dually improved back to his normal baseline status. He was started on diet. He was tolerating his diet very well, and after getting stable vital signs and clearance for discharge, he is getting disc harged home with home health. DISPOSITION: To home with home health. DISCHARGE CONDITION: Stable, improved compared to admission. DISCHARGE ACTIVITIES: As tolerated. Slowly resume to the normal baseline activity. DISCHARGE DIET: Soft-consistency regular diet. DISCHARGE MEDICATIONS: He has been given prescriptions of: 1. Ciprofloxacin. 2. Dilaudid for pain control on discharge. DISCHARGE FOLLOWUP INSTRUCTIONS 1. The patient is to follow up with his own primary care doctor 1 to 2 weeks after discharge. 2. The patient is to follow with General Surgery, Dr. Dustin Juárez, as outpatient 1 to 2 weeks aft er discharge. 3. The patient is to follow with Oncology, Dr. Kisha Zapien, as outpatient in 1 to 2 weeks after discharge. He has been explained about the discharge plan, followup instructions. He understood and verbalized understanding. Please note that the patient underwent general surgery by Dr. Dustin Juárez and had resection of the colon during this hospitalization. Dictated By: LUPE SEALS MD, KP/KEVIN Conf#: [id number] [facility]#: [id number]
== END 2016-04-23 19:25 | disposition home health service (06) | DRG 330 ==
LOC: E/R 11:17 → MS1 18:54
PROVIDERS: ADMIT Hospitalist; ATTEND Hospitalist
PROC: 0DBP8ZX Excision of Rectum, Via Natural or Artificial Opening Endoscopic, Diagnostic (ICD-10-PCS; 2016-04-03)
PROC: 0DBN8ZX Excision of Sigmoid Colon, Via Natural or Artificial Opening Endoscopic, Diagnostic (ICD-10-PCS; 2016-04-03)
PROC: 0DB58ZX Excision of Esophagus, Via Natural or Artificial Opening Endoscopic, Diagnostic (ICD-10-PCS; 2016-04-03)
PROC: 0DB68ZX Excision of Stomach, Via Natural or Artificial Opening Endoscopic, Diagnostic (ICD-10-PCS; 2016-04-03)
PROC: 0D1M0Z4 Bypass Descending Colon to Cutaneous, Open Approach (ICD-10-PCS; 2016-04-12)
PROC: 0DJD4ZZ Inspection of Lower Intestinal Tract, Percutaneous Endoscopic Approach (ICD-10-PCS; 2016-04-12)
PROC: 0DNF0ZZ Release Right Large Intestine, Open Approach (ICD-10-PCS; 2016-04-12)
PROC: 0DNG0ZZ Release Left Large Intestine, Open Approach (ICD-10-PCS; 2016-04-12)
PROC: 0DBB0ZZ Excision of Ileum, Open Approach (ICD-10-PCS; 2016-04-12)
PROC: 0DTN0ZZ Resection of Sigmoid Colon, Open Approach (ICD-10-PCS; principal; 2016-04-12 08:00)
DX: C19 Malignant neoplasm of rectosigmoid junction (principal); K56.69 Other intestinal obstruction; R64 Cachexia; B37.81 Candidal esophagitis; K56.5 Intestinal adhesions [bands] with obstruction (postinfection); K56.7 Ileus, unspecified; C18.0 Malignant neoplasm of cecum; Z68.1 Body mass index [BMI] 19.9 or less, adult; N39.0 Urinary tract infection, site not specified; K20.9 Esophagitis, unspecified; R10.84 Generalized abdominal pain; K59.00 Constipation, unspecified; Z85.038 Personal history of other malignant neoplasm of large intestine; Z92.21 Personal history of antineoplastic chemotherapy; Z92.3 Personal history of irradiation; F17.200 Nicotine dependence, unspecified, uncomplicated; E87.6 Hypokalemia; Z91.19 Patient's noncompliance with other medical treatment and regimen; D50.9 Iron deficiency anemia, unspecified; R63.4 Abnormal weight loss; K29.70 Gastritis, unspecified, without bleeding
CPT/HCPCS: 36415; 36430; 71010; 74000; 74176; 74177; 80048; 80053; 80061; 81001; 81003; 82378; 82728; 83036; 83540; 83690; 83735; 83880; 84100; 84132; 84439; 84443; 85025; 85610; 85730; 86850; 86870; 86900; 86901; 86902; 86920; 87086; 88305; 88309; 88312; 88313; 90686; 93005; 93971; 96374; 96375; 97110; 97116; 97162; 97164; 97530; J1940; C9113; J0330; J0744; J1100; J1170; J1885; J2060; J2250; J2270; J2370; J2405; J2543; J2710; J2765; J2916; J3010; J3480; J7030; J7050; P9016; Q9967

== ENCOUNTER 2016-05-01 11:03 | Outpatient (CLI) | payer BC, OTHER ==
[~2016-05-01] VITALS: Ht 182.9 cm; Wt 60.7 kg
[~2016-05-01 11:03] MED LIST changes: +FER325 PO; +HYDR-3498 PO; -HYDR-762 PO; -HYDR-902 PO; +HYDR2TAB3 PO; +LORA1TAB PO; +ONDA-43 PO; +PANT40TA3 PO; +PHEN-538 PO; +SAN30GM TOP
[2016-05-01 11:07] VITALS: BP 157/70; PULSE 78; RESP 20; Ht 182.9 cm; Wt 60.7 kg
--- NOTE | 2016-05-01 11:56 | PN ---
Date/Time of Note Date/Time of Note DATE: 05/01/16 TIME: 11:35 Assessment/Plan Assessment/Plan Assessment/Plan [facility] Progress Note Date of Service: 05/01/16 Today's Impression & Plan: Overall stable and slowly improving. No major post surgical issues. No major output from the anus, indicating adequate sealing of the tumor site. Tolerating PO without obstruction. Will need a few weeks of intense nutritional support and physical activity/rehab to get him ready for systemic chemo. His back pain and leg swelling should improve with further physical conditioning. With above assessment, I've recommended the following for today: 1. Get a PCP 2. F/u with Dr. Zapien in 1-2 weeks 3. Follow up with me in my office in 3-4 weeks 4. Increase activity 5. Increase oral intake 6. Jobst stockings above the knee and elevate above level of heart while not ambulating 7. Wrote prescription for Jobst stocking, and [place] and phenazopyridine 200 mg po TID (20 each and no refills) 8. D/c miriam (done in the office 9. Bilateral LE duplex US to further evaluate LE edema 10. MDTB presentation Thank you again for your great care of this very pleasant patient and wonderful family. If there are any questions, please feel free to call me at [phone]. TOTAL VISIT TIME: 20 minutes of which more than half was spent in [id number] discussion with the patient, possibly including family, as well as coordination of care between multiple physicians and providers. Disclaimer: Inadvertent spelling or grammatical errors are likely due to EHR/ dictation software use and do not reflect on the overall quality of patient care. Updated Clinical Summary: The patient is a very pleasant 65-year-old gentleman with comorbidities including hypertension, who was initially admitted to [facility] through ED on 2015 with signs and symptoms consistent with anemia that eventually was shown to be a large, nearly obstructing mass approximately 12 cm from the anal verge up to the area of the rectosigmoid junction on colonoscopy 06/07/2015. Plan at that time was neoadjuvant treatment with chemoradiation followed by restaging and surgical resection. Patient underwent radiation therapy (Dr. Aranda) that ended September 2015 (patient's recollection was November 2015). Discussions with multiple colleagues revealed evidence that the patient had been not following instructions and there were barriers to get the patient to surgical intervention. At least part of the barriers were due to patient factors alone. Patient reported having contacted my office approximately 5 times to try and make an appointment and was told that we "do not accept" his insurance. Careful review of office records showed no documentation of patient calling. Patient also believed that he had had [employer] as his insurance carrier, but his insurance carrier was [employer] (accepted by our program). Patient re-presented to [facility] through ED with constipation, vomiting, abdominal distension and dilated loops of small intestine on 04/01/16. Significant comorbidities included not insignificant malnutrition with BMI 15.8 and dehydration, albumin of 3.6 in the setting of inability to feed enterically. Small area of liver in segment 6 and two very small areas in segment 4a of questionable significance (too small to tell) benign path vs. metastatic disease. We attempted to treat the bowel obstruction with nonoperative management with the hope that the patient would be able to increase his oral intake and improve his nutritional status prior to potentially getting systemic chemotherapy in the neoadjuvant fashion before surgical intervention. Patient very clearly showed us that his bowels were not able to tolerate any meaningful amount of nutritional intake after a few days of this management and for this reason, and after a multidisciplinary discussion, we decided to change our treatment strategy and take the patient to the operating room. List of operative interventions on 04/12/16: 1. Laparoscopic exploration converted to open exploration 2. Partial colectomy with removal of upper part of rectum and sigmoid colon ( modifier 22) 3. Resection of the end of terminal ileum along with cecum with primary anastomosis 4. Performance of an colostomy using distal descending colon 5. Extensive lysis of adhesions (at least 60 minutes) 6. Intraoperative ultrasound of the liver 7. Abdominal lavage D/c home 04/23/16. Comorbidities: 1. Rectal malignancy, s/p chemotherapy and radiation June to Nov 2015; obstruction end of terminal ileum as well as at the level of the rectosigmoid junction with aggressive locally advanced rectal cancer; S/p an otherwise uncomplicated but challenging resection of both involved portions of rectosigmoid as well as terminal ileum in the setting of aggressive rectal cancer with local invasion of the pelvis on 04/13/16. 2. Hypertension 3. Cachexia; BMI 15.8; albumin of 3.6 in the setting of inability to feed enterically 4. Colonoscopy June 2015 5. Anxiety Subjective: No reported major events or complaints; reports feeling well; no major abd pain and under control with medications; no nausea; no vomiting; no sob or cp; + flatus; + BM into bag; no major output from anus; increasing activity; still with leg edema. Objective: Vitals: See below Exam: GENERAL: On exam, the patient was sitting in a chair and appeared to be comfortable and in no acute distress. ABDOMEN: Soft, nontender and nondistended. There are no peritoneal signs or guarding. Incisions c/d/i w/o obvious underlying e/e/d/h. Ostomy pink, viable and productive. Drain site clean without discharge. EXTREMITIES: Bilateral 2-3+ pitting edema SKIN: Skin appears to be pink and feels warm to touch. NEUROLOGIC: Patient is awake, alert, and follows commands appropriately. Exam/Review of Systems Vital Signs Vitals Vital Signs Date Time Temp Pulse Resp B/P Pulse Ox O2 Delivery O2 Flow Rate FiO2 05/01/16 11:07 98.0 78 20 157/70 99 Room Air DIVINE BEY M.D. May 01, 2016 11:47
== END 2016-05-01 16:51 | disposition home or self-care (01) ==
LOC: HPC 11:03
PROVIDERS: ATTEND Transplant Surgery
DX: C20 Malignant neoplasm of rectum (principal); I10 Essential (primary) hypertension; F41.9 Anxiety disorder, unspecified
CPT/HCPCS: G0463

== ENCOUNTER → 2016-05-06 | Outpatient (CLI) | payer BC, OTHER ==
--- NOTE | 2016-05-06 15:14 | RADRPT ---
PROCEDURE: US bilateral lower extremity veins. CLINICAL INDICATION: Bilateral leg pain and swelling. History of colon cancer. TECHNIQUE: Multiple longitudinal and transverse images of the bilateral lower extremity veins were obtained with gaviria scale and color Doppler imaging. The common femoral vein, femoral vein, and popl iteal vein were evaluated. 2D grayscale measurements with compression sonography, color Doppler, and pulsed Doppler with augmentation. COMPARISON: No prior studies are available for comparison. FINDINGS: The bilateral common femoral, femoral and popliteal veins are normally compressible throughout. Col or flow demonstrates normal filling of the vessels. Normal waveforms are visualized and there is no rmal response to augmentation. There is subcutaneous adipose tissue edema in the bilateral calves. IMPRESSION: 1. No evidence of deep vein thrombosis involving either lower extremity. 2. Subcutaneous adipose tissue edema in the calves. RPTAT: QQ .Taz Tolbert MD, MD Date Time Electronically viewed and signed by .Taz Tolbert MD, MD on 05/06/2016 15:14 .R/
== END | disposition home or self-care (01) ==
LOC: VAS 13:37
PROVIDERS: ATTEND Transplant Surgery
DX: R61 Generalized hyperhidrosis (principal)
CPT/HCPCS: 93970

== ENCOUNTER → 2016-05-08 | Outpatient (CLI) | payer BC, OTHER ==
[~2016-05-08] MED LIST changes: -CIPR500T4 PO; -PHEN-538 PO
[2016-05-08 15:05] LABS: ADD SCAN DIFF NO
[2016-05-08 15:11] LABS: BASOPHILS % 0.7 % (0.0-2.0); EOSINOPHILS # 0.2 10^3/ul (0.0-0.5); EOSINOPHILS % 3.3 % (0.0-7.0); HEMATOCRIT 29.1 % (42.0-52.0); HEMOGLOBIN 8.8 g/dl (14.0-18.0); LYMPHOCYTES # 0.8 10^3/ul (0.8-2.9); LYMPHOCYTES % 13.5 % (15.0-51.0); MEAN CORPUSCULAR HEMOGLOBIN 23.9 pg (29.0-33.0); MEAN CORPUSCULAR HGB CONC 30.2 g/dl (32.0-37.0); MEAN CORPUSCULAR VOLUME 79.1 fl (82.0-101.0); MEAN PLATELET VOLUME 8.4 fl (7.4-10.4); MONOCYTE # 0.4 10^3/ul (0.3-0.9); MONOCYTES % 6.8 % (0.0-11.0); NEUTROPHIL # 4.4 10^3/ul (1.6-7.5); NEUTROPHILS % 75.4 % (39.0-77.0); PLATELET COUNT 416 10^3/UL (140-415); RED BLOOD COUNT 3.68 10^6/ul (4.70-6.10); RED CELL DISTRIBUTION WIDTH 20.8 % (11.5-14.5); WHITE BLOOD COUNT 5.8 10^3/ul (4.8-10.8)
[2016-05-08 15:13] LABS: ADD UMIC YES; URINE BILIRUBIN (Dip) 1+ (NEGATIVE); URINE BLOOD (Dip) 2+ (NEGATIVE); URINE KETONES (Dip) TRACE (NEGATIVE); URINE UROBILINOGEN (Dip) 4.0 E.U./dL (0.1-1.0)
[2016-05-08 15:16] LABS: ALBUMIN 2.8 g/dl (3.3-4.9)
[2016-05-08 15:17] LABS: POTASSIUM 3.9 mmol/L (3.5-5.1)
[2016-05-08 15:19] LABS: ALBUMIN/GLOBULIN RATIO 1.03; BILIRUBIN,INDIRECT 0.1 mg/dl (0-1.1); BILIRUBIN,TOTAL 0.1 mg/dl (0.2-1.3); CREATININE 0.66 mg/dl (0.61-1.24); TOTAL PROTEIN 5.5 g/dl (6.1-8.1)
[2016-05-08 15:20] LABS: CALCIUM 8.5 mg/dl (8.4-10.2)
[2016-05-08 15:38] LABS: URINE TOTAL PROTEIN (Dip) 1+ (NEGATIVE)
[2016-05-08 15:40] LABS: URINE NITRITE (Dip) POSITIVE (NEGATIVE)
[2016-05-08 15:46] LABS: URINE COLOR AMBER (YELLOW); URINE LEUKOCYTE ESTERASE (Dip) 2+ (NEGATIVE)
[2016-05-08 15:50] LABS: ICTOTEST NEGATIVE (NEGATIVE)
[2016-05-08 15:52] LABS: URINE RBCS 0-2 /HPF (0)
== END | disposition home or self-care (01) ==
LOC: LAB 14:20
PROVIDERS: ATTEND Internal Medicine
DX: C18.9 Malignant neoplasm of colon, unspecified (principal); D64.9 Anemia, unspecified; N39.0 Urinary tract infection, site not specified
CPT/HCPCS: 80053; 81001; 81003; 85025; 87086

== ENCOUNTER 2016-05-15 09:47 | Emergency (ER) | payer BC, OTHER ==
[~2016-05-15] VITALS: Wt 63.0 kg
[2016-05-15] MEDS ORDERED: SOD CHLORIDE 0.9% 1,000 ML IV STA (10:05)
[2016-05-15] MEDS ORDERED: morphine 4 MG/ML VIAL IV STA ×2 (10:05→12:03)
[2016-05-15] MEDS ORDERED: ONDANSETRON 4 MG INJ IV STA ×2 (10:05→12:03)
[2016-05-15] MEDS ORDERED: BARIUM SULF 2% 450 ML BTL (BERRY SMOOTHIE) PO STA (10:05)
--- NOTE | 2016-05-15 10:12 | ERA ---
ER Documentation Chief Complaint Date/Time DATE: 05/15/16 TIME: 10:07 Chief Complaint GEN WEAKNESS AND ABD PAIN . NO STOOL FROM COLOSTOMY 2 DAYS. S/P RESECTION HPI Patient is a 65-year-old male who had a colostomy performed approximately 1 month ago for colon cancer. He reports no stool in his colostomy bag for the last 2 days with abdominal pain, nausea, and vomiting. Patient states every time he eats he vomits and has increased abdominal pain. He describes the pain as cramping and coming and going on its own. He has not experienced this pain before. He denies any fever, dysuria, hematuria, flank, or back pain. He is not currently on chemo. He denies any chest pain, shortness of breath, coughing , congestion, rhinorrhea, sore throat, or otalgia. He denies any sick contacts and has been in his usual state of health prior to this. The remainder review systems are negative. ROS All systems reviewed and are negative except as per history of present illness. Medications Home Meds Active Scripts Lorazepam* (Lorazepam*) 1 Mg Tablet, 1 MG PO BID Y for ANXIETY, #24 TAB Prov:LUPE SEALS MD 04/23/16 Hydromorphone Hcl (Dilaudid) 2 Mg Tab, 2 MG PO Q6 Y for SEVERE PAIN LEVEL 7-10, #30 TAB Prov:LUPE SEALS MD 04/23/16 Pantoprazole* (Protonix*) 40 Mg Tablet.dr, 40 MG PO DAILY for 30 Days, TAB Prov:GLORY CHEW 04/19/16 Ondansetron Hcl* (Zofran*) 4 Mg Tab, 4 MG PO Q4H Y for NAUSEA AND OR VOMITING, # 30 TAB Prov:GLORY CHEW 04/19/16 Ferrous Sulfate* (Ferrous Sulfate*) 325 Mg Tabec, 325 MG PO TID for 30 Days, TAB Prov:GLORY CHEW 04/19/16 Hydrocodone Bit-Acetaminophen (Hydrocodone Bit-APAP) 5-325MG Tablet, 2 TAB PO Q4H Y for PAIN LEVEL 7-10, #50 TAB Prov:GLORY CHEW 04/19/16 Collagenase* (Santyl*) 30 Gm Oint..gm., 1 APPLIC TOP DAILY for 30 Days Prov:GLORY CHEW 04/19/16 Allergies Allergies: Coded Allergies: No Known Allergies (Verified Allergy, Unknown, 04/01/16) PMhx/Soc History of Surgery: No Anesthesia Reaction: No Hx Neurological Disorder: No Hx Respiratory Disorders: No Hx Cardiac Disorders: Yes (HTN) Hx Psychiatric Problems: No Hx Miscellaneous Medical Probl: Yes (see PT note) Hx Alcohol Use: No Hx Substance Use: No Hx Tobacco Use: No FmHx Family History: No diabetes Physical Exam Vitals Vital Signs Date Time Temp Pulse Resp B/P Pulse Ox O2 Delivery O2 Flow Rate FiO2 05/15/16 09:49 98.6 88 20 141/74 98 Physical Exam Const: [] Well-developed thin male lying on the bed in no acute distress Head: Atraumatic normocephalic Eyes: Normal Conjunctiva ENT: Normal External Ears, Nose and Mouth. Neck: Full range of motion..~ No meningismus. Resp: Clear to auscultation bilaterally Cardio: Regular rate and rhythm, no murmurs Abd: Soft, mild tenderness to palpation diffusely, no bowel sounds auscultated, no masses, rebound, or guarding, no stool noted in his colostomy bag Skin: No petechiae or rashes Back: No midline or flank tenderness Ext: No cyanosis, or edema Neur: Awake and alert oriented 3 with a GCS of 15,moves all extremities equally Psych: Normal Mood and Affect Procedures/MDM Differential includes but is not limited to ileus, bowel obstruction, nonspecific abdominal pain LAURO ELLIOTT May 15, 2016 10:12
[2016-05-15 11:03] LABS: ADD SCAN DIFF NO
[2016-05-15 11:06] LABS: ADD UMIC YES; BASOPHILS % 0.4 % (0.0-2.0); EOSINOPHILS # 0.1 10^3/ul (0.0-0.5); EOSINOPHILS % 0.5 % (0.0-7.0); HEMATOCRIT 35.2 % (42.0-52.0); HEMOGLOBIN 10.5 g/dl (14.0-18.0); LYMPHOCYTES # 1.1 10^3/ul (0.8-2.9); MEAN CORPUSCULAR HEMOGLOBIN 23.9 pg (29.0-33.0); MEAN CORPUSCULAR HGB CONC 29.8 g/dl (32.0-37.0); MEAN CORPUSCULAR VOLUME 80.2 fl (82.0-101.0); MEAN PLATELET VOLUME 8.4 fl (7.4-10.4); MONOCYTE # 0.5 10^3/ul (0.3-0.9); MONOCYTES % 4.3 % (0.0-11.0); NEUTROPHIL # 9.3 10^3/ul (1.6-7.5); NEUTROPHILS % 84.3 % (39.0-77.0); PLATELET COUNT 460 10^3/UL (140-415); RED BLOOD COUNT 4.39 10^6/ul (4.70-6.10); RED CELL DISTRIBUTION WIDTH 21.1 % (11.5-14.5); URINE BILIRUBIN (Dip) NEGATIVE (NEGATIVE); URINE BLOOD (Dip) 1+ (NEGATIVE); URINE COLOR LT. YELLOW (YELLOW); URINE GLUCOSE (Dip) NEGATIVE (NEGATIVE); URINE KETONES (Dip) 15 (NEGATIVE); URINE LEUKOCYTE ESTERASE (Dip) 2+ (NEGATIVE); URINE NITRITE (Dip) NEGATIVE (NEGATIVE); URINE TOTAL PROTEIN (Dip) TRACE (NEGATIVE); URINE UROBILINOGEN (Dip) 1.0 E.U./dL (0.1-1.0); WHITE BLOOD COUNT 11.1 10^3/ul (4.8-10.8)
[2016-05-15 11:15] LABS: ALBUMIN 3.2 g/dl (3.3-4.9)
[2016-05-15 11:18] LABS: ALBUMIN/GLOBULIN RATIO 1.06; BILIRUBIN,INDIRECT 0.4 mg/dl (0-1.1); BILIRUBIN,TOTAL 0.4 mg/dl (0.2-1.3); CALCIUM 9.1 mg/dl (8.4-10.2); CREATININE 0.56 mg/dl (0.61-1.24); TOTAL PROTEIN 6.2 g/dl (6.1-8.1)
[2016-05-15 11:20] LABS: BACTERIA,URINE FEW; SQUAMOUS EPITHELIAL CELL,UR OCCASIONAL
[2016-05-15 12:30] VITALS: BP 155/75; PULSE 68; RESP 18
[2016-05-15] MEDS ORDERED: CEFTRIAXONE 1 GM/50 ML (PMX) 50 ML IVPB ONE (14:30)
--- NOTE | 2016-05-15 15:48 | RADRPT ---
PROCEDURE: CT Abdomen and Pelvis with and without contrast. CLINICAL INDICATION: Abdominal pain, recent colostomy, evaluate for obstruction TECHNIQUE: CT of the abdomen and pelvis was performed on a multidetector scanner both before and f ollowing the uncomplicated IV administration of 100 cc of Visipaque 320. Oral contrast was given as well. Coronal and sagittal images were reformatted from the axial data set. One or more of the fo llowing dose reduction techniques were used: automated exposure control, adjustment of the mA and/o r kV according to patient size, use of iterative reconstruction technique. CTDI = 4.90, 5.28 mGy. D LP = 276.7, 311.29 mGy-cm. COMPARISON: CT, 04/04/2016 FINDINGS: CT abdomen: The lung bases are clear. The heart size is normal, without pericardial effusion. Liver, gallbladd er, biliary tree, pancreas, spleen, adrenal glands and kidneys are unremarkable except for benign re nal cysts. No urolithiasis or obstructive uropathy is identified. Mild hiatal hernia is noted. Th e stomach is otherwise grossly unremarkable. The aorta is of normal caliber. Aortic vascular calcifications are present. There is no retroperit penn lymphadenopathy. The aida hepatis region is clear. CT pelvis: The patient is status post left lower quadrant colostomy placement. Poorly defined neoplasm is agai n seen arising from the proximal rectum, measuring approximately 4.4 x 2.7 cm (601-49). No gross ev idence of fat plane is seen between the neoplasm and the urinary bladder dome - direct tumor invasio n into the urinary bladder is not excluded. There is diffuse dilatation of large and small bowel, s uggesting ileus. No free intraperitoneal air or abscess is identified. Nonspecific small amount of peritoneal free fluid is noted. No diverticulosis, diverticulitis or colitis is identified. The p atient is also status post partial right colon resection, with unremarkable appearance of the surgic al staple line. There is nonspecific mild prominence of pelvic and inguinal lymph nodes. Anasarca i s noted. The surrounding osseous structures are remarkable for degenerative spondylosis of the spine. No ost eolytic or osteoblastic lesion is detected. IMPRESSION: 1. The patient is status post left lower quadrant colostomy placement. 2. There is diffuse dilatation of large and small bowel, suggesting ileus. No bowel perforation, a bscess formation, or definite evidence to indicate bowel obstruction is identified. 3. Poorly defined neoplasm is again seen arising from proximal rectum, with question of direct infi ltration into the adjacent bladder dome, as described above. 4. There is nonspecific prominence of bilateral inguinal and pelvic lymph nodes - metastatic diseas e cannot be excluded - attention on follow-up is recommended. 5. Mild hiatal hernia is identified. 6. Anasarca is noted. RPTAT: EE .Kar Vargas MD, MD Date Time Electronically viewed and signed by .Kar Vargas MD, MD on 05/15/2016 15:47 .R/
[2016-05-15] MEDS ORDERED: ONDA4TAB14 PO (16:00)
[2016-05-15] MEDS ORDERED: ACETAMINOPHEN 325 MG TAB PO PRN (16:00)
[2016-05-15] MEDS ORDERED: CIPR500T4 PO (16:00)
[2016-05-15] MEDS ORDERED: ONDANSETRON 4 MG INJ IV PRN (16:00)
[2016-05-15] MEDS ORDERED: HYDR-902 PO (16:37)
[2016-05-15] MEDS ORDERED: IODIXANOL LOCM 100 ML BTL ONE (17:25)
[2016-05-15] MEDS ORDERED: SOD CHLORIDE 0.9% 100 ML ONE (17:25)
== END 2016-05-15 17:00 | disposition home or self-care (01) ==
LOC: E/R 09:47
DX: R11.2 Nausea with vomiting, unspecified (principal); I10 Essential (primary) hypertension; R40.2142 Coma scale, eyes open, spontaneous, at arrival to emergency department; R40.2252 Coma scale, best verbal response, oriented, at arrival to emergency department; R40.2362 Coma scale, best motor response, obeys commands, at arrival to emergency department; Z85.038 Personal history of other malignant neoplasm of large intestine
CPT/HCPCS: 36415; 74177; 80053; 81001; 83690; 85025; 87086; 96365; 96366; 96375; 96376; 99285; J0696; J2270; J2405; J7030; Q9967; 81003

== ENCOUNTER 2016-05-29 15:29 | Outpatient (CLI) | payer BC, OTHER ==
[~2016-05-29] VITALS: Ht 182.9 cm; Wt 57.0 kg
[~2016-05-29 15:29] MED LIST changes: +CIPR500T4 PO; -HYDR-3498 PO; +HYDR-902 PO; -HYDR2TAB3 PO; -LORA1TAB PO; +ONDA4TAB14 PO
[2016-05-29 15:34] VITALS: BP 116/56; PULSE 81; RESP 18; Ht 182.9 cm; Wt 57.0 kg
--- NOTE | 2016-05-29 16:01 | PN ---
Date/Time of Note Date/Time of Note DATE: 05/29/16 TIME: 15:53 Assessment/Plan Assessment/Plan Assessment/Plan [facility] Progress Note Date of Service: 05/29/16 Today's Impression & Plan: Overall stable and continue to improve. Gained 5 lbs. No LE DVT and swelling improved without Jobst stockings. Small decubitus ulcer in the sacral area stage I/II and healing, small in diameter; getting closer to being able to get systemic chemo +/- further radiation. No major post surgical issues. No major output from the anus, indicating adequate sealing of the tumor site. Tolerating PO without obstruction. Will need a few more weeks of intense nutritional support and physical activity/rehab to get him ready for systemic chemo. He can also benefit from further physical conditioning. With above assessment, I've recommended the following for today: 1. Cont current management 2. F/u with Dr. Zapien in 2-3 weeks 3. Follow up with me in my office in 3-4 weeks 4. Increase activity 5. Increase oral intake 6. MDTB presentation Thank you again for your great care of this very pleasant patient and wonderful family. If there are any questions, please feel free to call me at [phone]. TOTAL VISIT TIME: 20 minutes of which more than half was spent in [id number] discussion with the patient, possibly including family, as well as coordination of care between multiple physicians and providers. Disclaimer: Inadvertent spelling or grammatical errors are likely due to EHR/ dictation software use and do not reflect on the overall quality of patient care. Updated Clinical Summary: The patient is a very pleasant 65-year-old gentleman with comorbidities including hypertension, who was initially admitted to [facility] through ED on 2015 with signs and symptoms consistent with anemia that eventually was shown to be a large, nearly obstructing mass approximately 12 cm from the anal verge up to the area of the rectosigmoid junction on colonoscopy 06/07/2015. Plan at that time was neoadjuvant treatment with chemoradiation followed by restaging and surgical resection. Patient underwent radiation therapy (Dr. Aranda) that ended September 2015 (patient's recollection was November 2015). Discussions with multiple colleagues revealed evidence that the patient had been not following instructions and there were barriers to get the patient to surgical intervention. At least part of the barriers were due to patient factors alone. Patient reported having contacted my office approximately 5 times to try and make an appointment and was told that we "do not accept" his insurance. Careful review of office records showed no documentation of patient calling. Patient also believed that he had had [employer] as his insurance carrier, but his insurance carrier was [employer] (accepted by our program). Patient re-presented to [facility] through ED with constipation, vomiting, abdominal distension and dilated loops of small intestine on 04/01/16. Significant comorbidities included not insignificant malnutrition with BMI 15.8 and dehydration, albumin of 3.6 in the setting of inability to feed enterically. Small area of liver in segment 6 and two very small areas in segment 4a of questionable significance (too small to tell) benign path vs. metastatic disease. We attempted to treat the bowel obstruction with nonoperative management with the hope that the patient would be able to increase his oral intake and improve his nutritional status prior to potentially getting systemic chemotherapy in the neoadjuvant fashion before surgical intervention. Patient very clearly showed us that his bowels were not able to tolerate any meaningful amount of nutritional intake after a few days of this management and for this reason, and after a multidisciplinary discussion, we decided to change our treatment strategy and take the patient to the operating room. List of operative interventions on 04/12/16: 1. Laparoscopic exploration converted to open exploration 2. Partial colectomy with removal of upper part of rectum and sigmoid colon ( modifier 22) 3. Resection of the end of terminal ileum along with cecum with primary anastomosis 4. Performance of an colostomy using distal descending colon 5. Extensive lysis of adhesions (at least 60 minutes) 6. Intraoperative ultrasound of the liver 7. Abdominal lavage D/c home 04/23/16. Comorbidities: 1. Rectal malignancy, s/p chemotherapy and radiation June to Nov 2015; obstruction end of terminal ileum as well as at the level of the rectosigmoid junction with aggressive locally advanced rectal cancer; S/p an otherwise uncomplicated but challenging resection of both involved portions of rectosigmoid as well as terminal ileum in the setting of aggressive rectal cancer with local invasion of the pelvis on 04/13/16. 2. Hypertension 3. Cachexia; BMI 15.8; albumin of 3.6 in the setting of inability to feed enterically 4. Colonoscopy June 2015 5. Anxiety Subjective: No reported major events or complaints; reports feeling well; no major abd pain and under control with medications; no nausea; no vomiting; no sob or cp; + flatus; + BM into bag; no major output from anus; increasing activity; much less leg edema. Objective: Vitals: See below Exam: GENERAL: On exam, the patient was sitting in a chair and appeared to be comfortable and in no acute distress. ABDOMEN: Soft, nontender and nondistended. There are no peritoneal signs or guarding. Incisions c/d/i w/o obvious underlying e/e/d/h. Ostomy pink, viable and productive. Drain site clean without discharge. EXTREMITIES: Bilateral 1+ pitting edema SKIN: Skin appears to be pink and feels warm to touch. Small stage 1-2 sacral decubitus ulcer 6 mm in diameter, clean. NEUROLOGIC: Patient is awake, alert, and follows commands appropriately. Exam/Review of Systems Vital Signs Vitals Vital Signs Date Time Temp Pulse Resp B/P Pulse Ox O2 Delivery O2 Flow Rate FiO2 05/29/16 15:34 98.0 81 18 116/56 98 Room Air DIVINE BEY M.D. May 29, 2016 16:01
== END 2016-05-29 17:00 | disposition home or self-care (01) ==
LOC: HPC 15:29
PROVIDERS: ATTEND Transplant Surgery
DX: C20 Malignant neoplasm of rectum (principal); I10 Essential (primary) hypertension; R64 Cachexia
CPT/HCPCS: G0463

== ENCOUNTER 2016-06-07 11:39 | Emergency (ER) | payer BC, OTHER ==
[~2016-06-07] VITALS: Ht 182.9 cm; Wt 58.0 kg
[~2016-06-07 11:39] MED LIST changes: -CIPR500T4 PO; -HYDR-902 PO; -ONDA4TAB14 PO
[2016-06-07 11:51] VITALS: Ht 182.9 cm; Wt 58.0 kg
[2016-06-07] MEDS ORDERED: ONDANSETRON 4 MG INJ IV STA (12:18)
[2016-06-07] MEDS ORDERED: morphine 4 MG/ML VIAL IV STA (12:18)
[2016-06-07] MEDS ORDERED: FAMOTIDINE 20 MG INJ IV STA (12:18)
[2016-06-07] MEDS ORDERED: SOD CHLORIDE 0.9% 1,000 ML IV STA (12:18)
[2016-06-07] MEDS ORDERED: POTA20TA15 PO (12:31)
[2016-06-07] MEDS ORDERED: FURO-110 PO (12:32)
[2016-06-07] MEDS ORDERED: PANT40TA3 PO (12:32)
[2016-06-07] MEDS ORDERED: HYDR-902 PO (12:32)
[2016-06-07 12:59] LABS: ADD SCAN DIFF NO
[2016-06-07 13:05] LABS: BASOPHILS % 0.3 % (0.0-2.0); EOSINOPHILS # 0.1 10^3/ul (0.0-0.5); EOSINOPHILS % 0.8 % (0.0-7.0); HEMATOCRIT 35.4 % (42.0-52.0); HEMOGLOBIN 10.9 g/dl (14.0-18.0); LYMPHOCYTES # 0.7 10^3/ul (0.8-2.9); LYMPHOCYTES % 11.9 % (15.0-51.0); MEAN CORPUSCULAR HEMOGLOBIN 25.2 pg (29.0-33.0); MEAN CORPUSCULAR HGB CONC 30.8 g/dl (32.0-37.0); MEAN CORPUSCULAR VOLUME 81.9 fl (82.0-101.0); MEAN PLATELET VOLUME 8.6 fl (7.4-10.4); MONOCYTE # 0.4 10^3/ul (0.3-0.9); NEUTROPHILS % 80.7 % (39.0-77.0); PLATELET COUNT 300 10^3/UL (140-415); RED BLOOD COUNT 4.32 10^6/ul (4.70-6.10); RED CELL DISTRIBUTION WIDTH 17.5 % (11.5-14.5); WHITE BLOOD COUNT 6.2 10^3/ul (4.8-10.8)
[2016-06-07 13:14] LABS: ALBUMIN 3.6 g/dl (3.3-4.9); POTASSIUM 3.4 mmol/L (3.5-5.1)
[2016-06-07 13:17] LABS: ALBUMIN/GLOBULIN RATIO 1.16; BILIRUBIN,INDIRECT 0.5 mg/dl (0-1.1); BILIRUBIN,TOTAL 0.5 mg/dl (0.2-1.3); CALCIUM 9.1 mg/dl (8.4-10.2); CREATININE 0.47 mg/dl (0.61-1.24); TOTAL PROTEIN 6.7 g/dl (6.1-8.1)
[2016-06-07] MEDS ORDERED: IOHEXOL 300MG/ML 150 ML BTL ONE (13:31)
[2016-06-07] MEDS ORDERED: SOD CHLORIDE 0.9% 100 ML ONE (13:31)
[2016-06-07 13:37] LABS: ADD UMIC YES; URINE BILIRUBIN (Dip) NEGATIVE (NEGATIVE); URINE BLOOD (Dip) TRACE (NEGATIVE); URINE COLOR YELLOW (YELLOW); URINE GLUCOSE (Dip) NEGATIVE (NEGATIVE); URINE KETONES (Dip) NEGATIVE (NEGATIVE); URINE LEUKOCYTE ESTERASE (Dip) 1+ (NEGATIVE); URINE NITRITE (Dip) NEGATIVE (NEGATIVE); URINE TOTAL PROTEIN (Dip) 1+ (NEGATIVE); URINE UROBILINOGEN (Dip) 1.0 E.U./dL (0.1-1.0)
[2016-06-07] MEDS ORDERED: CEFTRIAXONE 1 GM/50 ML (PMX) 50 ML IVPB ONE (14:00)
[2016-06-07 14:04] LABS: BACTERIA,URINE MODERATE
--- NOTE | 2016-06-07 14:20 | RADRPT ---
PROCEDURE: CT Abdomen and Pelvis with and without contrast. CLINICAL INDICATION: Abdominal pain TECHNIQUE: CT of the abdomen and pelvis was performed on a multidetector scanner both before and f ollowing the uncomplicated IV administration of 90 cc of Omnipaque-300. Coronal and sagittal images were reformatted from the axial data set. One or more of the following dose reduction techniques w ere used: automated exposure control, adjustment of the mA and/or kV according to patient size, use of iterative reconstruction technique. CTDI = 4.74, 5.06 mGy. DLP = 580.03 mGy-cm. COMPARISON: CT, 05/15/2016 FINDINGS: CT abdomen: The lung bases are clear. The heart size is normal, without pericardial effusion. Liver, gallbladd er, biliary tree, pancreas, spleen, adrenal glands and kidneys are unremarkable except for benign re nal cysts. No urolithiasis or obstructive uropathy is identified. The stomach is grossly unremarka ble. The aorta is of normal caliber. Aortic vascular calcifications are present. There is no retroperit penn lymphadenopathy. The aida hepatis region is clear. CT pelvis: The patient is status post sigmoid colon resection and left-sided colostomy placement. There is mod erate to severe dilatation of proximal small bowel loops, with collapsed distal ileum, consistent wi th small bowel obstruction. Transition point is identified in the central pelvis (series 4, images 121-126). Poorly defined mass is again seen involving proximal rectal stump, with questionable infi ltration into the adjacent bladder dome - this mass is located directly adjacent to the area of smal l bowel caliber change and may indicate neoplastic infiltration as the cause of bowel obstruction. There is no free intraperitoneal air or evidence of abscess. The patient is status post appendectom y. No colitis is identified. Small amount of peritoneal free fluid is present, likely reactive. U rinary bladder is grossly unremarkable. There is nonspecific mild prominence of bilateral inguinal lymph nodes, grossly unchanged from the prior CT. The surrounding osseous structures are remarkable for degenerative spondylosis of the spine. No ost eolytic or osteoblastic lesion is detected. IMPRESSION: 1. Findings consistent with small bowel obstruction, as above. Transition point is located directl y adjacent to a poorly-defined mass involving the rectal stump proximally - this may indicate neopla stic infiltration as the cause of small bowel obstruction. 2. The patient is status post sigmoid colon resection and left-sided colostomy placement. 3. Aortoiliac atherosclerotic calcifications are present. 4. No evidence of bowel perforation or abscess formation is seen. RPTAT: PP .Kar Vargas MD, Date Time Electronically viewed and signed by .Kar Vargas MD, on 06/07/2016 14:19 .R/
[2016-06-07] MEDS ORDERED: SOD CHLORIDE 0.9% 1,000 ML IV SCH (14:47)
--- NOTE | 2016-06-07 14:55 | ERA ---
ER Documentation Chief Complaint Date/Time DATE: 06/07/16 TIME: 14:52 Chief Complaint pt bib family with c/o abd pain, hx cancer, colostomy bag, HPI This is a 65-year-old male who presents to the emergency room for evaluation of abdominal pain. This patient does have a history of colon cancer, and partial colectomy with colostomy. The patient was complaining of abdominal pain and decreased output from his ostomy site. The patient was seen by his general surgeon, Dr. juárez who recommended the patient come to the emergency room to be evaluated. Patient localizes pain to the midportion of abdomen, no radiation the pain. No nausea or vomiting per ROS All systems reviewed and are negative except as per history of present illness. Medications Home Meds Active Scripts Pantoprazole* (Protonix*) 40 Mg Tablet.dr, 40 MG PO DAILY for 30 Days, TAB Prov:GLORY CHEW 04/19/16 Ondansetron Hcl* (Zofran*) 4 Mg Tab, 4 MG PO Q4H Y for NAUSEA AND OR VOMITING, # 30 TAB Prov:GLORY CHEW 04/19/16 Ferrous Sulfate* (Ferrous Sulfate*) 325 Mg Tabec, 325 MG PO TID for 30 Days, TAB Prov:GLORY CHEW 04/19/16 Reported Medications Hydrocodone/Acetaminophen ([place] 10-325 Tablet) 1 Each Tablet, 1 EACH PO QID, TAB 06/07/16 Furosemide* (Lasix*) 20 Mg Tablet, 20 MG PO DAILY, TAB 06/07/16 Pantoprazole* (Protonix*) 40 Mg Tablet.dr, 40 MG PO DAILY, TAB 06/07/16 Potassium Chloride* (K-Dur*) 20 Meq Tab.prt.sr, 20 MEQ PO DAILY, TAB.SA 06/07/16 Discontinued Scripts Collagenase* (Santyl*) 30 Gm Oint..gm., 1 APPLIC TOP DAILY for 30 Days Prov:GLORY CHEW 04/19/16 Allergies Allergies: Coded Allergies: No Known Allergies (Verified Allergy, Unknown, 06/07/16) PMhx/Soc History of Surgery: No (colostomy, colon CA removal) Anesthesia Reaction: No Hx Neurological Disorder: No Hx Respiratory Disorders: No Hx Cardiac Disorders: Yes (HTN) Hx Psychiatric Problems: No Hx Miscellaneous Medical Probl: Yes (colon CA, colonstomy) Hx Alcohol Use: No Hx Substance Use: No Hx Tobacco Use: No Physical Exam Vitals Vital Signs Date Time Temp Pulse Resp B/P Pulse Ox O2 Delivery O2 Flow Rate FiO2 06/07/16 13:19 75 17 150/82 100 Room Air 06/07/16 11:51 98.3 90 16 142/79 99 Physical Exam INITIAL VITAL SIGNS: Reviewed by me GENERAL: The patient is cachectic appearing elderly gentleman HEENT: Pupils equal, round, and reactive to light. EOMI. There is no scleral icterus. NECK: C-spine is soft and supple, there is no meningismus. There is no cervical lymphadenopathy. LUNGS: Clear to auscultation bilaterally. There are no rales, wheezes or rhonchi. HEART: Regular rate and rhythm, no murmurs, clicks, rubs or gallops. ABDOMEN: Ostomy site with minimal output, s mild tenderness to palpation in the left lower quadrant, right lower quadrant there are bowel sounds in all four quadrants. No rebound or guarding. EXTREMITIES: There is no peripheral cyanosis or edema. No focal swelling or erythema. NEUROLOGICAL: The patient moves all four extremities with 5/5 strength. Cranial nerves II - XII are intact. Normal gait. Alert and oriented SKIN: There is no apparent rash or petechiae. HEME/LYMPHATIC: There is no evidence of excessive bruising or lymphedema. PSYCHIATRIC: The patient does not appear anxious or depressed. Result Diagram: 06/07/16 1250 06/07/16 1250 Results 24 hrs Laboratory Tests Test 06/07/16 12:50 White Blood Count 6.210^3/ul Red Blood Count 4.3210^6/ul Hemoglobin 10.9g/dl Hematocrit 35.4% Mean Corpuscular Volume 81.9fl Mean Corpuscular Hemoglobin 25.2pg Mean Corpuscular Hemoglobin Concent 30.8g/dl Red Cell Distribution Width 17.5% Platelet Count 77616^3/UL Mean Platelet Volume 8.6fl Neutrophils % 80.7% Lymphocytes % 11.9% Monocytes % 6.0% Eosinophils % 0.8% Basophils % 0.3% Nucleated Red Blood Cells % 0.0/100WBC Neutrophils # 5.010^3/ul Lymphocytes # 0.710^3/ul Monocytes # 0.410^3/ul Eosinophils # 0.110^3/ul Basophils # 0.010^3/ul Nucleated Red Blood Cells # 0.010^3/ul Urine Color YELLOW Urine Clarity SLIGHTLY CLOUDY Urine pH 6.0 Urine Specific [place] 1.020 Urine Ketones NEGATIVE Urine Nitrite NEGATIVE Urine Bilirubin NEGATIVE Urine Urobilinogen 1.0 E.U./dL Urine Leukocyte Esterase 1+ Urine Microscopic RBC 2-5/HPF Urine Microscopic WBC >50/HPF Urine Epithelial Cells RARE Urine Bacteria MODERATE Urine Hemoglobin TRACE Urine Glucose NEGATIVE% Urine Total Protein 1+ Sodium Level 141mmol/L Potassium Level 3.4mmol/L Chloride Level 100mmol/L Carbon Dioxide Level 28mmol/L Anion Gap 16 Blood Urea Nitrogen 11mg/dl Creatinine 0.47mg/dl Glucose Level 130mg/dl Calcium Level 9.1mg/dl Total Bilirubin 0.5mg/dl Direct Bilirubin 0.00mg/dl Indirect Bilirubin 0.5mg/dl Aspartate Amino Transf (AST/SGOT) 14IU/L Alanine Aminotransferase (ALT/SGPT) 13IU/L Alkaline Phosphatase 77IU/L Total Protein 6.7g/dl Albumin 3.6g/dl Globulin 3.10g/dl Albumin/Globulin Ratio 1.16 Lipase 12U/L Current Medications Medications (Trade) Dose Ordered Sig/Krystle Route PRN Reason Start Time Stop Time Status Last Admin Dose Admin Sodium Chloride (NS) 1,000 ml @ 1,000 mls/hr Q1H STAT IV 06/07/16 12:18 06/07/16 13:17 DC 06/07/16 13:16 Morphine Sulfate (morphine) 4 mg ONCE STAT IV 06/07/16 12:18 06/07/16 12:20 DC 06/07/16 13:16 Ondansetron HCl (Zofran Inj) 4 mg ONCE STAT IV 06/07/16 12:18 06/07/16 12:20 DC 06/07/16 13:15 Famotidine (Pepcid Iv) 20 mg ONCE STAT IV 06/07/16 12:18 06/07/16 12:20 DC 06/07/16 13:16 IV Flush 10 ml 10 ml STK-MED ONCE .ROUTE 06/07/16 13:31 06/07/16 13:32 DC 06/07/16 13:44 Sodium Chloride (NS) 100 ml @ ud STK-MED ONCE .ROUTE 06/07/16 13:31 06/07/16 13:32 DC 06/07/16 13:44 Iohexol 150 ml 150 ml STK-MED ONCE .ROUTE 06/07/16 13:31 06/07/16 13:32 DC 06/07/16 13:45 Ceftriaxone Sodium 50 ml @ 100 mls/hr ONCE ONCE IVPB 06/07/16 14:00 06/07/16 14:29 DC 06/07/16 14:03 Sodium Chloride (NS) 1,000 ml @ 80 mls/hr [id number] IV 06/07/16 14:47 06/08/16 03:16 Ondansetron HCl (Zofran Inj) 4 mg BRIDGE ORDER PRN IV NAUSEA AND/OR VOMITING 06/07/16 15:00 06/08/16 14:59 Acetaminophen (Tylenol Tab) 650 mg ER BRIDGE PRN PO MILD PAIN/FEVER 06/07/16 15:00 06/08/16 14:59 Procedures/MDM CT abdomen pelvis without: 1. Findings consistent with small bowel obstruction , as above. Transition point is located directly adjacent to a poorly-defined mass involving the rectal stump proximally - this may indicate neoplastic infiltration as the cause of small bowel obstruction. 2. The patient is status post sigmoid colon resection and left-sided colostomy placement. 3. Aortoiliac atherosclerotic calcifications are present. 4. No evidence of bowel perforation or abscess formation is seen. This 65-year-old male presents to the emergency room for evaluation of abdominal pain and decreased output from his colostomy site. When I evaluated this patient he was tender to palpation in the right and left lower quadrants. The patient does have a history of colon cancer with a previous colectomy and colostomy bag in place at this time. The patient underwent a CAT scan of the abdomen pelvis which does demonstrate a small bowel obstruction. The patient was also found to have urinary tract infection. The patient was started on Rocephin in the emergency room. I have contacted his general surgeon, Dr. Juárez who is in agreement with admission at this time. This patient's primary care physician, Dr. Urena is also here with her plan of care. The patient will be admitted on the [facility] floor at this time. Departure Diagnosis: Primary Impression: Small bowel obstruction Additional Impressions: Acute cystitis Microcytic anemia Condition: Stable JOSE E GILES DO Jun 07, 2016 14:55
[2016-06-07] MEDS ORDERED: ONDANSETRON 4 MG INJ IV PRN (15:00)
[2016-06-07] MEDS ORDERED: ACETAMINOPHEN 325 MG TAB PO PRN (15:00)
--- NOTE | 2016-06-07 18:19 | RADRPT ---
PROCEDURE: XR Abdomen. CLINICAL INDICATION: Small bowel obstruction TECHNIQUE: Upright and supine frontal radiographs of the abdomen are available for review. COMPARISON: CT abdomen and pelvis 06/17/2016 FINDINGS: There are multiple loops of moderately dilated small bowel throughout the lower abdomen and pelvis w ith air-fluid levels. The overall degree distension is minimally decreased as compared prior study. Small amount of gas is noted in the colon. There is contrast material within the urinary tract an d bladder from prior contrast enhanced CT. There is no free gas. Bones unremarkable. IMPRESSION: Asymmetric small bowel dilatation with minimal gas in the colon compatible with a partial small brooklynn l obstruction. Overall degree of small bowel dilatation is minimally decreased as compared to the p rior study. RPTAT: HMVK .Brijesh Crabtree MD, Date Time Electronically viewed and signed by .Brijesh Crabtree MD, on 06/07/2016 18:19 .K/
[2016-06-07] MEDS ORDERED: CIPR500T4 PO (18:24)
[2016-06-07 19:02] VITALS: BP 146/76; PULSE 62; RESP 16
== END 2016-06-07 19:03 | disposition home or self-care (01) ==
LOC: E/R 11:39
DX: K56.69 Other intestinal obstruction (principal); N30.00 Acute cystitis without hematuria; D50.9 Iron deficiency anemia, unspecified; R40.2142 Coma scale, eyes open, spontaneous, at arrival to emergency department; R40.2252 Coma scale, best verbal response, oriented, at arrival to emergency department; R40.2362 Coma scale, best motor response, obeys commands, at arrival to emergency department; I10 Essential (primary) hypertension; Z85.038 Personal history of other malignant neoplasm of large intestine
CPT/HCPCS: 36415; 74010; 74178; 80053; 81001; 81003; 83690; 85025; 87086; 96361; 96365; 96375; 99285; J0696; J2270; J2405; J7030; Q9967

== ENCOUNTER 2016-06-11 16:44 | Emergency (ER) | payer BC, OTHER ==
[~2016-06-11] VITALS: Ht 182.9 cm; Wt 58.0 kg
[~2016-06-11 16:44] MED LIST changes: +CIPR500T4 PO; +FURO-110 PO; +HYDR-902 PO; +POTA20TA15 PO; -SAN30GM TOP
[2016-06-11 16:46] VITALS: Ht 182.9 cm; Wt 58.0 kg
[2016-06-11] MEDS ORDERED: FAMOTIDINE 20 MG TAB PO ONE (18:30)
[2016-06-11] MEDS ORDERED: KETOROLAC 30 MG INJ IM STA (19:20)
[2016-06-11 19:25] VITALS: BP 141/67; PULSE 74; RESP 18; TEMP 97.8
--- NOTE | 2016-06-11 19:28 | ERD ---
ER Documentation Chief Complaint Date/Time DATE: 06/11/16 TIME: 19:23 Chief Complaint ABD PAIN , CONSTIPATION X 4 DAYS , DENIES N/V HPI Patient is a 65-year-old male with previous colostomy surgery who presents with abdominal pain. The patient said that Dr. Bey sent to the emergency department for evaluation with an x-ray. He has an appointment with Dr. Bey tomorrow. The patient said that his last bowel movement through his colostomy was 3 days ago but he has been putting out air. The patient has no fevers. He has no vomiting. He has abdominal pain which he says is not worse than his usual abdominal pain. He said that Dr. Urena his primary doctor told him to drink a bottle of magnesium citrate. Upon review of old medical records this is the patient's seventh visit to the ER since 2016. ROS All systems reviewed and are negative except as per history of present illness. Medications Home Meds Active Scripts Ciprofloxacin Hcl* (Ciprofloxacin Hcl*) 500 Mg Tablet, 500 MG PO BID for 10 Days , TAB Prov:DUNIA GILLESPIE MD 06/07/16 Pantoprazole* (Protonix*) 40 Mg Tablet., 40 MG PO DAILY for 30 Days, TAB Prov:GLORY CHEW 04/19/16 Ondansetron Hcl* (Zofran*) 4 Mg Tab, 4 MG PO Q4H Y for NAUSEA AND OR VOMITING, # 30 TAB Prov:GLORY CHEW 04/19/16 Ferrous Sulfate* (Ferrous Sulfate*) 325 Mg Tabec, 325 MG PO TID for 30 Days, TAB Prov:GLORY CHEW 04/19/16 Reported Medications Hydrocodone/Acetaminophen ([place] 10-325 Tablet) 1 Each Tablet, 1 EACH PO QID, TAB 06/07/16 Furosemide* (Lasix*) 20 Mg Tablet, 20 MG PO DAILY, TAB 06/07/16 Pantoprazole* (Protonix*) 40 Mg Tablet.dr, 40 MG PO DAILY, TAB 06/07/16 Potassium Chloride* (K-Dur*) 20 Meq Tab.prt.sr, 20 MEQ PO DAILY, TAB.SA 06/07/16 Discontinued Scripts Collagenase* (Santyl*) 30 Gm Oint..gm., 1 APPLIC TOP DAILY for 30 Days Prov:GLORY CHEW 04/19/16 Allergies Allergies: Coded Allergies: No Known Allergies (Verified Allergy, Unknown, 06/07/16) PMhx/Soc History of Surgery: No (colostomy, colon CA removal) Anesthesia Reaction: No Hx Neurological Disorder: No Hx Respiratory Disorders: No Hx Cardiac Disorders: Yes (HTN) Hx Psychiatric Problems: No Hx Miscellaneous Medical Probl: Yes (colon CA, colonstomy) Hx Alcohol Use: No Hx Substance Use: No Hx Tobacco Use: No FmHx Family History: diabetes Physical Exam Vitals Vital Signs Date Time Temp Pulse Resp B/P Pulse Ox O2 Delivery O2 Flow Rate FiO2 06/11/16 16:46 97.8 78 18 130/60 98 Physical Exam Const: No acute distress Head: Atraumatic Eyes: Normal Conjunctiva ENT: Normal External Ears, Nose and Mouth. Neck: Full range of motion..~ No meningismus. Resp: Clear to auscultation bilaterally Cardio: Regular rate and rhythm, no murmurs Abd: Soft, non tender, non distended. The patient does have a pink stoma with no stool in the colostomy bag Skin: No petechiae or rashes Back: No midline or flank tenderness Ext: No cyanosis, or edema Neur: Awake and alert Psych: Normal Mood and Affect Results 24 hrs Current Medications Medications (Trade) Dose Ordered Sig/Krystle Route PRN Reason Start Time Stop Time Status Last Admin Dose Admin Famotidine (Pepcid) 20 mg ONCE ONCE PO 06/11/16 18:30 06/11/16 18:31 DC 06/11/16 18:24 Ketorolac Tromethamine (Toradol) 30 mg ONCE STAT IM 06/11/16 19:20 06/11/16 19:21 DC Procedures/MDM X-ray Abdomen 1V Interpreted by me: Free Air: None Bowel Gas: Distended bowel showing possible obstruction versus ileus Soft Tissue: Normal Patient is a 65-year-old male with previous surgery with colostomy who presents with abdominal pain and decreased output from his colostomy. His x-ray does show a distended bowel and I spoke with Dr. Bey who recommended laboratory studies and CT scan if the x-ray showed distention. I told the patient that I wanted to do these tests and he said "no I just had those done a few days ago and I want to follow-up with Dr. Bey tomorrow". The patient understands the plan but does not want to have these laboratory studies or CT scan done and wants to go home. He will drink the mag citrate as directed by his primary doctor. He can return for any worsening symptoms. Departure Diagnosis: Primary Impression: Abdominal pain Abdominal location: generalized Qualified Code: R10.84 - Generalized abdominal pain Condition: Fair Patient Instructions: Abdominal Pain Referrals: JM URENA MD (PCP) DIVINE BEY M.D. Additional Instructions: SPECIALIST: YOU HAVE A MEDICAL CONDITION WHICH REQUIRES YOU TO SEE A SPECIALIST WITHIN THE NEXT 1-2 DAYS. PLEASE FOLLOW UP WITH YOUR PRIMARY PHYSICIAN FOR REFFERAL.IF YOU DO NOT HAVE A PRIMARY CARE PHYSICIAN AND/OR YOU CAN NOT AFFORD TO SEE A PHYSICIAN THE FOLLOWING RESOURCES HAVE BEEN SUPPLIED TO YOU. IT IS YOUR RESPONSIBILITY TO BE SEEN BY THE SPECIALIST BRADFORD ODELL MD Jun 11, 2016 19:28
--- NOTE | 2016-06-11 19:43 | RADRPT ---
PROCEDURE: XR Abdomen. CLINICAL INDICATION: Constipation TECHNIQUE: AP supine abdomen x-ray. COMPARISON: 06/07/2016 FINDINGS: There redemonstrated loops of moderately dilated small bowel predominant in the left abdomen, overal l slightly improved as compared to the prior study. There is scattered gas in nondilated colon. T here are no abnormal calcifications overlying the urinary tracts. The osseus structures are unremar kable. IMPRESSION: Mildly dilated small bowel left abdomen, overall decreased as compared prior study, consistent with a partial small bowel obstruction. RPTAT: HMVK .Brijesh Crabtree MD, Date Time Electronically viewed and signed by .Brijesh Crabtree MD, on 06/11/2016 19:43 .K/
== END 2016-06-11 19:40 | disposition home or self-care (01) ==
LOC: E/R 16:44
DX: R10.84 Generalized abdominal pain (principal); I10 Essential (primary) hypertension; Z85.038 Personal history of other malignant neoplasm of large intestine
CPT/HCPCS: 74000; 96372; 99284; J1885

== ENCOUNTER 2016-06-12 10:49 | Outpatient (CLI) | payer BC, OTHER ==
[~2016-06-12] VITALS: Ht 182.9 cm; Wt 58.0 kg
[2016-06-12 10:49] VITALS: BP 152/67; PULSE 51; RESP 18; Ht 182.9 cm; Wt 58.0 kg
--- NOTE | 2016-06-12 12:03 | PN ---
Date/Time of Note Date/Time of Note DATE: 06/12/16 TIME: 11:58 Assessment/Plan Assessment/Plan Assessment/Plan [facility] Progress Note Date of Service: 06/12/16 Today's Impression & Plan: Overall stable. Suspect constipation as the underlying cause of issues and 2 ED visits last week. Unusual for this to be from malignant obstruction (too soon after surgery); similarly, low chance of adhesions being the cause; patient's weight gain encouraging; no indication for acute surgical intervention. With above assessment, I've recommended the following for today: 1. Daily stool softeners with goal of having daily BM's 2. To keep in touch with Dr. Zapien re issues with his teeth, as well as timing of systemic chemo 3. F/u with us prn 4. MDTB with specific question of ability to have more radiation and type of systemic chemo used Thank you again for your great care of this very pleasant patient and wonderful family. If there are any questions, please feel free to call me at [phone]. TOTAL VISIT TIME: 20 minutes of which more than half was spent in [id number] discussion with the patient, possibly including family, as well as coordination of care between multiple physicians and providers. Disclaimer: Inadvertent spelling or grammatical errors are likely due to EHR/ dictation software use and do not reflect on the overall quality of patient care. Updated Clinical Summary: The patient is a very pleasant 65-year-old gentleman with comorbidities including hypertension, who was initially admitted to [facility] through ED on 2015 with signs and symptoms consistent with anemia that eventually was shown to be a large, nearly obstructing mass approximately 12 cm from the anal verge up to the area of the rectosigmoid junction on colonoscopy 06/07/2015. Plan at that time was neoadjuvant treatment with chemoradiation followed by restaging and surgical resection. Patient underwent radiation therapy (Dr. Aranda) that ended September 2015 (patient's recollection was November 2015). Discussions with multiple colleagues revealed evidence that the patient had been not following instructions and there were barriers to get the patient to surgical intervention. At least part of the barriers were due to patient factors alone. Patient reported having contacted my office approximately 5 times to try and make an appointment and was told that we "do not accept" his insurance. Careful review of office records showed no documentation of patient calling. Patient also believed that he had had [employer] as his insurance carrier, but his insurance carrier was [email or web address] (accepted by our program). Patient re-presented to [facility] through ED with constipation, vomiting, abdominal distension and dilated loops of small intestine on 04/01/16. Significant comorbidities included not insignificant malnutrition with BMI 15.8 and dehydration, albumin of 3.6 in the setting of inability to feed enterically. Small area of liver in segment 6 and two very small areas in segment 4a of questionable significance (too small to tell) benign path vs. metastatic disease. We attempted to treat the bowel obstruction with nonoperative management with the hope that the patient would be able to increase his oral intake and improve his nutritional status prior to potentially getting systemic chemotherapy in the neoadjuvant fashion before surgical intervention. Patient very clearly showed us that his bowels were not able to tolerate any meaningful amount of nutritional intake after a few days of this management and for this reason, and after a multidisciplinary discussion, we decided to change our treatment strategy and take the patient to the operating room. List of operative interventions on 04/12/16: 1. Laparoscopic exploration converted to open exploration 2. Partial colectomy with removal of upper part of rectum and sigmoid colon ( modifier 22) 3. Resection of the end of terminal ileum along with cecum with primary anastomosis 4. Performance of an colostomy using distal descending colon 5. Extensive lysis of adhesions (at least 60 minutes) 6. Intraoperative ultrasound of the liver 7. Abdominal lavage D/c home 04/23/16. Two visits to ED for constipation 06/07 and 06/11/16. Comorbidities: 1. Rectal malignancy, s/p chemotherapy and radiation June to Nov 2015; obstruction end of terminal ileum as well as at the level of the rectosigmoid junction with aggressive locally advanced rectal cancer; S/p an otherwise uncomplicated but challenging resection of both involved portions of rectosigmoid as well as terminal ileum in the setting of aggressive rectal cancer with local invasion of the pelvis on 04/13/16. 2. Hypertension 3. Cachexia; BMI 15.8; albumin of 3.6 in the setting of inability to feed enterically 4. Colonoscopy June 2015 5. Anxiety Subjective: No reported major events or complaints other than above; reports feeling well; no major abd pain and under control with medications; no nausea; no vomiting; no sob or cp; + flatus; + BM into bag; no major output from anus; increasing activity; gained more weight. Objective: Vitals: See below Exam: GENERAL: On exam, the patient was sitting in a chair and appeared to be comfortable and in no acute distress. ABDOMEN: Soft, nontender and nondistended. There are no peritoneal signs or guarding. Incisions c/d/i w/o obvious underlying e/e/d/h. Ostomy pink, viable and productive. Drain site clean without discharge. SKIN: Skin appears to be pink and feels warm to touch. NEUROLOGIC: Patient is awake, alert, and follows commands appropriately. Exam/Review of Systems Vital Signs Vitals Vital Signs Date Time Temp Pulse Resp B/P Pulse Ox O2 Delivery O2 Flow Rate FiO2 06/12/16 10:49 97.5 51 18 152/67 100 Room Air DIVINE BEY M.D. Jun 12, 2016 12:03
== END 2016-06-12 16:55 | disposition home or self-care (01) ==
LOC: HPC 10:49
PROVIDERS: ATTEND Transplant Surgery
DX: Z48.3 Aftercare following surgery for neoplasm (principal); Z90.49 Acquired absence of other specified parts of digestive tract; Z93.3 Colostomy status; R64 Cachexia; Z68.1 Body mass index [BMI] 19.9 or less, adult; I10 Essential (primary) hypertension; F41.9 Anxiety disorder, unspecified; Z92.21 Personal history of antineoplastic chemotherapy; Z92.3 Personal history of irradiation
CPT/HCPCS: G0463

== ENCOUNTER 2016-07-18 09:46 | Emergency (ER) | payer BC, OTHER ==
[~2016-07-18] VITALS: Ht 182.9 cm; Wt 55.0 kg
[~2016-07-18 09:46] MED LIST changes: -CIPR500T4 PO; -HYDR-902 PO; -ONDA-43 PO
[2016-07-18 09:49] VITALS: Ht 182.9 cm; Wt 55.0 kg
[2016-07-18] MEDS ORDERED: HYDR-902 PO (10:29)
[2016-07-18] MEDS ORDERED: CIPR500T4 PO (10:30)
[2016-07-18] MEDS ORDERED: HYDROmorphONE 1 MG/ML SYG IV STA ×3 (10:32→14:18)
[2016-07-18] MEDS ORDERED: ONDANSETRON 4 MG INJ IV STA (10:32)
[2016-07-18] MEDS ORDERED: SOD CHLORIDE 0.9% 1,000 ML IV STA (10:32)
[2016-07-18 10:53] LABS: ADD SCAN DIFF NO
--- NOTE | 2016-07-18 11:07 | ERA ---
ER Documentation Chief Complaint Date/Time DATE: 07/18/16 TIME: 11:05 Chief Complaint vomiting started last night with ap; HPI 65-year-old man presents with diffuse abdominal pain and multiple episodes of vomiting for the last 3 days, states his last bowel movement was 3 days ago. He has aggressive rectal carcinoma and is status post sigmoid resection with colostomy bag. He states he normally has 2-3 bowel movements daily. He vomiting has been nonbloody nonbilious, no fevers or chills, no chest pain or shortness of breath. Patient also states he has a recent diagnosis of urinary tract infection and has been using ciprofloxacin daily as prescribed 2 days. ROS All systems reviewed and are negative except as per history of present illness. Medications Home Meds Reported Medications Ciprofloxacin Hcl* (Ciprofloxacin Hcl*) 500 Mg Tablet, 500 MG PO BID, #14 TAB FOR 7 DAYS STARTED 07-12-16 07/18/16 Hydrocodone/Acetaminophen (Peck 10-325 Tablet) 1 Each Tablet, 1 EACH PO Q6 Y for PAIN, TAB 07/18/16 Discontinued Reported Medications Furosemide* (Lasix*) 20 Mg Tablet, 20 MG PO DAILY, TAB 06/07/16 Pantoprazole* (Protonix*) 40 Mg Tablet.dr, 40 MG PO DAILY, TAB 06/07/16 Potassium Chloride* (K-Dur*) 20 Meq Tab.prt.sr, 20 MEQ PO DAILY, TAB.SA 06/07/16 Discontinued Scripts Ferrous Sulfate* (Ferrous Sulfate*) 325 Mg Tabec, 325 MG PO TID for 30 Days, TAB Prov:GLORY CHEW 04/19/16 Allergies Allergies: Coded Allergies: No Known Allergies (Verified Allergy, Unknown, 07/18/16) PMhx/Soc Rectal carcinoma status post sigmoid colectomy, ileostomy anastomosis and colostomy bag placement, previous small bowel obstruction, depression, recent lysis of adhesions, hypertension, recent urinary tract infection using ciprofloxacin History of Surgery: Yes (Colon Surgery) Anesthesia Reaction: No Hx Neurological Disorder: No Hx Respiratory Disorders: No Hx Cardiac Disorders: No Hx Psychiatric Problems: No Hx Miscellaneous Medical Probl: No (Colon CA, UTI (On Cipro)) Hx Alcohol Use: No Hx Substance Use: No Hx Tobacco Use: No Smoking Status: Never smoker FmHx Family History: No diabetes Physical Exam Vitals Vital Signs Date Time Temp Pulse Resp B/P Pulse Ox O2 Delivery O2 Flow Rate FiO2 07/18/16 12:38 98.3 69 18 130/70 100 Room Air 07/18/16 09:49 98.3 82 18 147/72 97 Physical Exam GENERAL: Well-developed, appears dehydrated, afebrile HEENT: Dry mucous membranes, pink conjunctiva, no cervical spine tenderness or step-off deformities, no goiter, no jaundice or icterus, extraocular movements intact without pain. No submandibular induration, and no pharyngeal erythema NEURO: Alert and oriented 3, cranial nerves II through XII intact bilaterally, pupils equal round reactive to light, no focal deficits or facial asymmetry, sensation intact distally Strength 5/5 in upper and lower extremities bilaterally CARDIAC: Regular rate and rhythm, no murmurs rubs or gallops LUNGS: Clear bilaterally no wheezing crackles or stridor ABDOMEN: Soft nontender, no guarding, no rigidity, no rebound, no psoas sign no obturator sign. SKIN: Warm and dry to touch, no abrasions, contusions, or hematomas, no lacerations, no ecchymosis, no target lesions, and without ulcers EXTREMITIES: No clubbing cyanosis or edema, calves are bilaterally symmetrical, no Homans sign, no popliteal cord sign. Distal pulses equal and bilateral PSYCH: Normal affect without agitation or irritability Result Diagram: 07/18/16 1022 07/18/16 1022 Results 24 hrs Laboratory Tests Test 07/18/16 10:22 07/18/16 11:33 White Blood Count 7.910^3/ul Red Blood Count 4.4310^6/ul Hemoglobin 11.7g/dl Hematocrit 37.3% Mean Corpuscular Volume 84.2fl Mean Corpuscular Hemoglobin 26.4pg Mean Corpuscular Hemoglobin Concent 31.4g/dl Red Cell Distribution Width 15.0% Platelet Count 95294^3/UL Mean Platelet Volume 9.2fl Neutrophils % 84.4% Lymphocytes % 9.5% Monocytes % 4.9% Eosinophils % 0.5% Basophils % 0.3% Nucleated Red Blood Cells % 0.0/100WBC Neutrophils # 6.710^3/ul Lymphocytes # 0.810^3/ul Monocytes # 0.410^3/ul Eosinophils # 0.010^3/ul Basophils # 0.010^3/ul Nucleated Red Blood Cells # 0.010^3/ul Prothrombin Time 13.2Sec Prothrombin Time Ratio 1.0 INR International Normalized Ratio 1.00 Sodium Level 140mmol/L Potassium Level 3.8mmol/L Chloride Level 98mmol/L Carbon Dioxide Level 29mmol/L Anion Gap 17 Blood Urea Nitrogen 14mg/dl Creatinine 0.55mg/dl Glucose Level 119mg/dl Calcium Level 9.1mg/dl Total Bilirubin 0.3mg/dl Direct Bilirubin 0.00mg/dl Indirect Bilirubin 0.3mg/dl Aspartate Amino Transf (AST/SGOT) 18IU/L Alanine Aminotransferase (ALT/SGPT) 21IU/L Alkaline Phosphatase 74IU/L Troponin I < 0.012ng/ml Total Protein 7.1g/dl Albumin 3.8g/dl Globulin 3.30g/dl Albumin/Globulin Ratio 1.15 Lipase 13U/L Urine Color LT. YELLOW Urine Clarity CLEAR Urine pH 8.5 Urine Specific [place] 1.010 Urine Ketones 15 Urine Nitrite NEGATIVE Urine Bilirubin NEGATIVE Urine Urobilinogen 0.2 E.U./dL Urine Leukocyte Esterase 2+ Urine Microscopic RBC Pending Urine Microscopic WBC Pending Urine Hemoglobin 2+ Urine Glucose NEGATIVE% Urine Total Protein 1+ Current Medications Medications (Trade) Dose Ordered Sig/Krystle Route PRN Reason Start Time Stop Time Status Last Admin Dose Admin Sodium Chloride (NS) 1,000 ml @ 1,000 mls/hr Q1H STAT IV 07/18/16 10:32 07/18/16 11:31 DC 07/18/16 10:41 Hydromorphone HCl (Dilaudid) 1 mg ONCE STAT IV 07/18/16 10:32 07/18/16 10:34 DC 07/18/16 10:43 Ondansetron HCl (Zofran Inj) 4 mg ONCE STAT IV 07/18/16 10:32 07/18/16 10:34 DC 07/18/16 10:42 Hydromorphone HCl (Dilaudid) 1 mg ONCE STAT IV 07/18/16 11:42 07/18/16 11:43 DC 07/18/16 11:48 Famotidine (Pepcid) 40 mg ONCE STAT PO 07/18/16 11:42 07/18/16 11:43 DC 07/18/16 11:48 Miscellaneous Medication (Gi Cocktail (2)) 40 ml ONCE STAT PO 07/18/16 11:42 07/18/16 11:43 DC 07/18/16 11:48 Belladonna/ Phenobarbital () 2 tab ONCE STAT PO 07/18/16 11:42 07/18/16 11:43 DC 07/18/16 11:48 Procedures/MDM IV line was established patient was placed on manager cardiac rhythm strip revealed a sinus rhythm at about 70 bpm with upright P and T waves. Patient was afebrile. EKG performed, read by me: 67 bpm, normal sinus rhythm, normal axis, no acute ST segment changes, narrow QRS complex, with good R-wave progression in precordial leads. I administered 1 L normal saline intravenously for dehydration, hydromorphone 1 mg IV and Zofran 4 mg IV. For continued pain he received another dose of hydromorphone 1 mg IV. CBC was normal, electrolytes unremarkable, liver function tests normal, troponin was negative. Urine analysis revealed 2+ leukocytes concerning for urinary tract infection, he was treated here with ceftriaxone 1 g IV. I spoke to his surgeon regarding his presentation and symptomatology who recommended admission and will consult the patient. Patient admitted to Dr. Urena. CT scan of the abdomen and pelvis was performed revealing bowel obstruction. Please refer to radiologist dictation for full report. Departure Diagnosis: Primary Impression: Rectal carcinoma Additional Impressions: Vomiting Qualified Code: R11.2 - Non-intractable vomiting with nausea, unspecified vomiting type Dehydration Small bowel obstruction Condition: JAK Yuan MD July 18, 2016 11:07
[2016-07-18 11:12] LABS: BASOPHILS % 0.3 % (0.0-2.0); EOSINOPHILS % 0.5 % (0.0-7.0); HEMATOCRIT 37.3 % (42.0-52.0); HEMOGLOBIN 11.7 g/dl (14.0-18.0); LYMPHOCYTES # 0.8 10^3/ul (0.8-2.9); LYMPHOCYTES % 9.5 % (15.0-51.0); MEAN CORPUSCULAR HEMOGLOBIN 26.4 pg (29.0-33.0); MEAN CORPUSCULAR HGB CONC 31.4 g/dl (32.0-37.0); MEAN CORPUSCULAR VOLUME 84.2 fl (82.0-101.0); MEAN PLATELET VOLUME 9.2 fl (7.4-10.4); MONOCYTE # 0.4 10^3/ul (0.3-0.9); MONOCYTES % 4.9 % (0.0-11.0); NEUTROPHIL # 6.7 10^3/ul (1.6-7.5); NEUTROPHILS % 84.4 % (39.0-77.0); PLATELET COUNT 297 10^3/UL (140-415); RED BLOOD COUNT 4.43 10^6/ul (4.70-6.10); WHITE BLOOD COUNT 7.9 10^3/ul (4.8-10.8)
[2016-07-18 11:16] LABS: PROTIME 13.2 Sec (12.2-14.2)
[2016-07-18 11:17] LABS: ALBUMIN 3.8 g/dl (3.3-4.9); CHLORIDE 98 mmol/L (97-110); POTASSIUM 3.8 mmol/L (3.5-5.1); SODIUM 140 mmol/L (135-144)
[2016-07-18 11:19] LABS: BILIRUBIN,INDIRECT 0.3 mg/dl (0-1.1); BILIRUBIN,TOTAL 0.3 mg/dl (0.2-1.3); CREATININE 0.55 mg/dl (0.61-1.24)
[2016-07-18 11:20] LABS: ALANINE AMINOTRANSFERASE 21 IU/L (13-69); ALBUMIN/GLOBULIN RATIO 1.15; ALKALINE PHOSPHATASE 74 IU/L (42-121); ANION GAP 17 (8-16); ASPARTATE AMINO TRANSFERASE 18 IU/L (15-46); BLOOD UREA NITROGEN 14 mg/dl (7-20); CALCIUM 9.1 mg/dl (8.4-10.2); CARBON DIOXIDE 29 mmol/L (21-31); GLUCOSE 119 mg/dl (70-220); TOTAL PROTEIN 7.1 g/dl (6.1-8.1)
[2016-07-18] MEDS ORDERED: BELLADONNA/PHENOBARBITAL TAB PO STA (11:42)
[2016-07-18] MEDS ORDERED: FAMOTIDINE 20 MG TAB PO STA (11:42)
[2016-07-18] MEDS ORDERED: LIDOCAINE/MYLANTA 40 ML BTL PO STA (11:42)
[2016-07-18 12:00] LABS: TROPONIN-I < 0.012 ng/ml (0.00-0.12)
[2016-07-18 12:12] LABS: ADD UMIC YES; URINE BILIRUBIN (Dip) NEGATIVE (NEGATIVE); URINE BLOOD (Dip) 2+ (NEGATIVE); URINE COLOR LT. YELLOW (YELLOW); URINE GLUCOSE (Dip) NEGATIVE (NEGATIVE); URINE KETONES (Dip) 15 (NEGATIVE); URINE LEUKOCYTE ESTERASE (Dip) 2+ (NEGATIVE); URINE NITRITE (Dip) NEGATIVE (NEGATIVE); URINE TOTAL PROTEIN (Dip) 1+ (NEGATIVE); URINE UROBILINOGEN (Dip) 0.2 E.U./dL (0.1-1.0)
--- NOTE | 2016-07-18 12:23 | RADRPT ---
PROCEDURE: CT Abdomen and Pelvis without contrast. CLINICAL INDICATION: Abdominal pain with vomiting. History of colon cancer with colostomy. No out put for 2 days. TECHNIQUE: CT scan of the abdomen and pelvis without contrast was performed on a multidetector hig h-resolution CT scanner. The patient was scanned without intravenous contrast. Coronal and sagittal reformatted images were obtained from the axial source images. Images were reviewed on a high-resol MRI Interventions PACS workstation. The total exam CTDI equals 5.58 mGy and the total exam DLP equals 390.82 mGy -cm. One or more of the following dose reduction techniques were used: Automated exposure control. Adjustment of the mA and/or kV according to patient size. Use of iterative reconstruction technique. COMPARISON: CT abdomen and pelvis 06/07/2016 and 05/15/2016 FINDINGS: CT abdomen: The lung bases are remarkable for small areas of patchy ground-glass opacities in the right lower lo be. The heart size is normal, without pericardial thickening or effusion. The liver is normal in s ize and density without focal mass or intrahepatic biliary dilatation. The spleen is normal in size and homogeneous in density. The stomach is partially collapsed, but is grossly unremarkable. The pancreas as visualized is normal. The gallbladder is unremarkable. There is no evidence for biliary dilatation. The adrenal glands are symmetric and normal. The kidneys are symmetrically unremarkab le as well. No renal calculus or obstructive uropathy or mass lesion is seen. The aorta is of normal caliber. Aortic vascular calcifications are present. There is no retroperit penn lymphadenopathy. The aida hepatis region is clear. CT pelvis: There are moderately dilated multiple loops of small bowel with decompressed distal ileal loops. Th e transition point is again identified in the central pelvis in the region of the known rectal mass. The patient is status post colon resection with left lower quadrant colostomy. There is poorly de fined mass along the rectum infiltrating into the posterior wall of the urinary bladder. IMPRESSION: 1. Findings in keeping with small bowel obstruction likely related to known rectal mass. The degre e of obstruction has progressed compared to CT dated 06/07/2016. 2. Partial colonic resection and left lower quadrant colostomy and ileocolic anastomosis. 3. No intra-abdominal loculated fluid collection or pneumoperitoneum. 4. Aortoiliac atherosclerosis. 5. Mild patchy infiltrates in the right lung base. RPTAT: BB .Mari Varela MD, MD Date Time Electronically viewed and signed by .Mari Varela MD, MD on 07/18/2016 12:23 .O/
[2016-07-18 12:54] LABS: BACTERIA,URINE MODERATE
[2016-07-18] MEDS ORDERED: CEFTRIAXONE 1 GM/50 ML (PMX) 50 ML IVPB ONE (13:00)
[2016-07-18] MEDS ORDERED: SOD CHLORIDE 0.9% 1,000 ML IV ONE (14:30)
[2016-07-18 16:10] VITALS: BP 123/71; PULSE 52; RESP 14; TEMP 98
== END 2016-07-18 16:11 | disposition left against medical advice (07) ==
LOC: E/R 09:46 → UNDOADMIN 12:20 → MS2 12:20
DX: C20 Malignant neoplasm of rectum (principal); R11.2 Nausea with vomiting, unspecified; E86.0 Dehydration; K56.60 Unspecified intestinal obstruction; R10.84 Generalized abdominal pain; Z85.038 Personal history of other malignant neoplasm of large intestine
CPT/HCPCS: 74176; 80053; 81001; 81003; 83690; 84484; 85025; 85610; 87086; 93005; J0696; J1170; J2405; J7030; 36415; 96361; 96374; 96375; 96376

== ENCOUNTER 2016-07-19 09:23 | Inpatient (IN) | payer BC, OTHER ==
[~2016-07-19] VITALS: Ht 182.9 cm; Wt 56.0 kg
[~2016-07-19 09:23] MED LIST changes: +CIPR500T4 PO; -FER325 PO; -FURO-110 PO; +HYDR-902 PO; -PANT40TA3 PO; -POTA20TA15 PO
[2016-07-19 09:27] VITALS: Ht 182.9 cm; Wt 56.0 kg
[2016-07-19] MEDS ORDERED: ONDANSETRON 4 MG INJ IV STA (10:17)
[2016-07-19] MEDS ORDERED: SOD CHLORIDE 0.9% 500 ML IV STA (10:17)
[2016-07-19 10:47] LABS: ADD SCAN DIFF NO
--- NOTE | 2016-07-19 10:51 | RADRPT ---
PROCEDURE: Chest x-ray CLINICAL INDICATION: Pain. TECHNIQUE: One-view frontal. COMPARISON: 04/12/2016 FINDINGS: The cardiac silhouette is normal. No infiltrates are noted. No hilar abnormalities are identified. No pneumothorax or pleural effusions are visualized. IMPRESSION: 1. No active cardiopulmonary changes. RPTAT: HGSG .Chaitanya Piper MD, MD Date Time Electronically viewed and signed by .Chaitanya Piper MD, on 07/19/2016 10:51 .G/
[2016-07-19 10:56] LABS: BASOPHILS % 0.2 % (0.0-2.0); EOSINOPHILS % 0.3 % (0.0-7.0); HEMATOCRIT 38.9 % (42.0-52.0); LYMPHOCYTES # 0.9 10^3/ul (0.8-2.9); LYMPHOCYTES % 9.8 % (15.0-51.0); MEAN CORPUSCULAR HEMOGLOBIN 26.4 pg (29.0-33.0); MEAN CORPUSCULAR HGB CONC 30.8 g/dl (32.0-37.0); MEAN CORPUSCULAR VOLUME 85.5 fl (82.0-101.0); MONOCYTE # 0.5 10^3/ul (0.3-0.9); MONOCYTES % 5.8 % (0.0-11.0); NEUTROPHIL # 7.3 10^3/ul (1.6-7.5); NEUTROPHILS % 83.4 % (39.0-77.0); PLATELET COUNT 305 10^3/UL (140-415); RED BLOOD COUNT 4.55 10^6/ul (4.70-6.10); WHITE BLOOD COUNT 8.8 10^3/ul (4.8-10.8)
[2016-07-19] MEDS ORDERED: HYDROmorphONE 1 MG/ML SYG IV STA (11:00)
[2016-07-19 11:07] LABS: PROTIME 13.2 Sec (12.2-14.2)
[2016-07-19 11:08] LABS: PARTIAL THROMBOPLASTIN TIME 28.6 Sec (25.0-35.0)
[2016-07-19 11:20] LABS: ALBUMIN 3.8 g/dl (3.3-4.9); CHLORIDE 101 mmol/L (97-110)
[2016-07-19 11:21] LABS: POTASSIUM 4.2 mmol/L (3.5-5.1); SODIUM 142 mmol/L (135-144)
[2016-07-19 11:23] LABS: ALANINE AMINOTRANSFERASE 23 IU/L (13-69); ALBUMIN/GLOBULIN RATIO 1.18; ALKALINE PHOSPHATASE 79 IU/L (42-121); ANION GAP 18 (8-16); ASPARTATE AMINO TRANSFERASE 22 IU/L (15-46); BILIRUBIN,INDIRECT 0.2 mg/dl (0-1.1); BILIRUBIN,TOTAL 0.2 mg/dl (0.2-1.3); BLOOD UREA NITROGEN 20 mg/dl (7-20); CARBON DIOXIDE 27 mmol/L (21-31); CREATININE 0.68 mg/dl (0.61-1.24); GLUCOSE 82 mg/dl (70-220)
[2016-07-19 11:24] LABS: CALCIUM 8.9 mg/dl (8.4-10.2)
[2016-07-19 11:37] LABS: TROPONIN-I < 0.012 ng/ml (0.00-0.12)
[2016-07-19] MEDS ORDERED: LIDOCAINE/MYLANTA 40 ML BTL PO ONE (12:30)
[2016-07-19 13:00] LABS: ADD UMIC YES; URINE BILIRUBIN (Dip) NEGATIVE (NEGATIVE); URINE BLOOD (Dip) 3+ (NEGATIVE); URINE COLOR LT. YELLOW (YELLOW); URINE GLUCOSE (Dip) NEGATIVE (NEGATIVE); URINE KETONES (Dip) 40 (NEGATIVE); URINE LEUKOCYTE ESTERASE (Dip) 1+ (NEGATIVE); URINE NITRITE (Dip) NEGATIVE (NEGATIVE); URINE TOTAL PROTEIN (Dip) 1+ (NEGATIVE); URINE UROBILINOGEN (Dip) 0.2 E.U./dL (0.1-1.0)
[2016-07-19 13:18] LABS: BACTERIA,URINE MODERATE; URINE RBCS >50 /HPF (0)
[2016-07-19 15:00] VITALS: BP 162/72; RESP 18
[2016-07-19] MEDS: HYDROmorphONE 1 MG/ML SYG IV PRN ×3 (15:11→21:55)
[2016-07-19] MEDS ORDERED: hydrALAzine 20 MG INJ IV PRN (15:30)
[2016-07-19] MEDS: D5W-0.45 NACL + KCL 20 MEQ 1,000 ML IV SCH (16:27)
[2016-07-19] MEDS: CEFTRIAXONE 1 GM/50 ML (PMX) 50 ML IVPB SCH (16:28)
--- NOTE | 2016-07-19 17:28 | RADRPT ---
PROCEDURE: XR Abdomen. CLINICAL INDICATION: Bowel obstruction. TECHNIQUE: AP supine abdomen x-ray. COMPARISON: 06/11/2016. FINDINGS: There is dilated bowel in the upper and mid abdomen, worse than seen previously consistent with smal l bowel obstruction. Minimal gas is present in the colon. There is no gas in the rectosigmoid. There are no abnormal calcifications overlying the urinary tracts. The osseus structures are unremarkable. IMPRESSION: 1. High-grade small bowel obstruction, worse than seen on 06/11/2016. RPTAT: QQ .Taz Tolbert MD, MD Date Time Electronically viewed and signed by .Taz Tolbert MD, on 07/19/2016 17:28 .R/
--- NOTE | 2016-07-19 19:04 | CONS ---
[facility] SUBSEQUENT INPATIENT CONSULTATION NOTE DATE OF CONSULTATION: 07/19/2016 PLACE OF SERVICE: [facility] 6th floor. DATE OF ADMISSION: 07/19/2016 ASSESSMENT AND PLAN: A very pleasant but unfortunate 65-year-old gentleman with stage IV rectal cancer status post palliative surgical intervention 2016 presenting with a combination of urinary tract infection as well as partial small-bowel obstruction. Currently, the patient does not have any indication for acute surgical intervention. In fact, surgical intervention is relatively contraindicated in this setting and would only delay life- prolonging chemotherapy, which is supposed to start next week. Certainly with urinary tract infection and partial bowel obstruction and he may have to delay his chemotherapy, but for all my recommendation is for the patient to continue having nonoperative management with bowel rest as well as possible NG decompression if his nausea and vomiting worsen. We should also treat his urinary tract infection, and I believe that is ongoing. I explained all of this in detail with the patient and his and answered all their questions to the best of my ability. I believe that they understand and agree with the plan. With above assessment, I recommend the followin. Continue in-house care. 2. Intravenous fluids. 3. Antimicrobials geared towards urinary tract infection which would also cover for bowel obstruction. 4. Symptom control. 5. Careful observation in house. 6. I will follow along with you. Thank you again for allowing us to participate and remain part of the care team of this very pleasant gentleman and his wonderful family. If there are any questions, please feel free to contact me at [phone]. TOTAL VISIT TIME: 45 minutes of which more than half was spent in [id number] discussion with the patient, discussions with his , as well as coordination of care between multiple physicians and providers. HISTORY OF PRESENT ILLNESS: The patient is a very pleasant 65-year-old gentleman with above-mentioned comorbidities who we were kindly asked to consult regarding management of his abdominal discomfort. Patient is very well known to me as mentioned above, since his operation in April 2016, for essentially what was found to be metastatic stage IV colorectal malignancy. He has been having abdominal discomfort and some nausea and vomiting and was seen in the emergency room a few times over the course of the last few weeks, the latest of which was yesterday and then came back today for admission. He reported nonbilious and nonbloody vomiting. He has not had output through his ostomy for a few days and also has urinary tract infection on the most recent urinalysis done today. Note that his laboratory values are relatively benign and electrolytes are normal. ALLERGIES: NO KNOWN DRUG ALLERGIES. MEDICATIONS: The patient is on: 1. Ciprofloxacin. 2. [place]. SOCIAL HISTORY: The patient lives with his family. He does not report any smoking, drinking, or intravenous drug use. REVIEW OF SYSTEMS: Other than the above-mentioned, there are no other pertinent positives or pertinent negatives in a complete 14-point review of systems. PHYSICAL EXAMINATION: GENERAL: The patient appears to be a very pleasant gentleman of /[place] descent, appearing stated age, lying in bed comfortably and in no acute distress. BMI is 16.7. VITAL SIGNS: Temperature 98.6, blood pressure 162/72, pulse 63, respiratory rate 18, pulse oximetry 99% on room air. HEENT: Normocephalic and atraumatic. Extraocular muscles and hearing are grossly intact bilaterally and symmetrically. Sclerae are nonicteric. Oral cavity is clear; oral mucosa appeared to be pink and moist. Dentition: fair to poor. NECK: Supple. There is no lymphadenopathy or JVD. There is no submental, submandibular or supraclavicular lymphadenopathy. CHEST: Rises symmetrically with each breath; patient is breathing comfortably. There are no audible wheezes, rales or rhonchi on the gross exam. HEART: Pulse is regular and palpable on the left wrist. Capillary refill was normal. Carotid pulses are palpable bilaterally and symmetrically in the neck. EXTREMITIES: Lower extremities contain no pitting edema around the ankles bilaterally and symmetrically. ABDOMEN: Soft, nondistended and nontender. His ostomy is pink and viable. There are no fluids or gas within the ostomy bag. SKIN: Appears to be pink and feels warm to touch. NEUROLOGIC: Awake, alert, and follows commands appropriately. LABORATORY DATA: As above. IMAGING: Patient had a chest x-ray which demonstrated no active cardiopulmonary changes. He had an abdominal and pelvic CT on 07/18/2016 that demonstrated findings in keeping with small-bowel obstruction likely related to known rectal mass. The view of obstruction had progressed compared to the CT done on 06/07/2016. Partial colonic resection and left lower quadrant colostomy and ileocolic anastomosis was seen. No intra-abdominal loculated fluid collection or pneumoperitoneum was noted. He had aortic iliac atherosclerosis was noted. Mild patchy infiltrates in the right lung base were also noted. Note that I personally reviewed all the available and pertinent images and I agree in general with their overall reported findings. Dictated By: DIVINE CATHERINE/KEVIN Conf#: [id number] DID#: [id number]
[2016-07-19 19:22] LABS: ADD UMIC YES; URINE BILIRUBIN (Dip) 1+ (NEGATIVE); URINE BLOOD (Dip) 3+ (NEGATIVE); URINE COLOR LT. YELLOW (YELLOW); URINE GLUCOSE (Dip) NEGATIVE (NEGATIVE); URINE KETONES (Dip) 40 (NEGATIVE); URINE LEUKOCYTE ESTERASE (Dip) 1+ (NEGATIVE); URINE NITRITE (Dip) NEGATIVE (NEGATIVE); URINE TOTAL PROTEIN (Dip) 1+ (NEGATIVE); URINE UROBILINOGEN (Dip) 0.2 E.U./dL (0.1-1.0)
[2016-07-19 19:29] LABS: ICTOTEST NEGATIVE (NEGATIVE)
[2016-07-19 19:30] LABS: BACTERIA,URINE MODERATE; URINE RBCS 25-50 /HPF (0)
[2016-07-19 20:24] VITALS: BP 157/71; PULSE 63; RESP 18
[2016-07-20] MEDS: D5W-0.45 NACL + KCL 20 MEQ 1,000 ML IV SCH ×5 (01:00→21:00)
[2016-07-20] MEDS: HYDROmorphONE 1 MG/ML SYG IV PRN ×10 (01:18→23:45)
[2016-07-20] MEDS: ONDANSETRON 4 MG INJ IV PRN ×2 (03:43→13:28)
[2016-07-20 06:55] LABS: ADD SCAN DIFF NO
[2016-07-20 07:01] LABS: BASOPHILS % 0.3 % (0.0-2.0); HEMATOCRIT 31.9 % (42.0-52.0); LYMPHOCYTES # 0.8 10^3/ul (0.8-2.9); LYMPHOCYTES % 20.9 % (15.0-51.0); MEAN CORPUSCULAR HEMOGLOBIN 26.6 pg (29.0-33.0); MEAN CORPUSCULAR HGB CONC 31.3 g/dl (32.0-37.0); MEAN CORPUSCULAR VOLUME 84.8 fl (82.0-101.0); MEAN PLATELET VOLUME 9.1 fl (7.4-10.4); MONOCYTE # 0.5 10^3/ul (0.3-0.9); MONOCYTES % 12.6 % (0.0-11.0); NEUTROPHIL # 2.5 10^3/ul (1.6-7.5); NEUTROPHILS % 65.2 % (39.0-77.0); PLATELET COUNT 248 10^3/UL (140-415); RED BLOOD COUNT 3.76 10^6/ul (4.70-6.10); RED CELL DISTRIBUTION WIDTH 14.8 % (11.5-14.5); WHITE BLOOD COUNT 3.8 10^3/ul (4.8-10.8)
[2016-07-20 07:33] LABS: ALBUMIN/GLOBULIN RATIO 1.15; CALCIUM 8.2 mg/dl (8.4-10.2); CREATININE 0.66 mg/dl (0.61-1.24); MAGNESIUM 2.8 mg/dl (1.7-2.5); POTASSIUM 4.3 mmol/L (3.5-5.1); TOTAL PROTEIN 5.6 g/dl (6.1-8.1)
[2016-07-20 07:48] VITALS: BP 142/67; RESP 18
[2016-07-20] MEDS: PANTOPRAZOLE 40 MG INJ IV SCH (12:40)
--- NOTE | 2016-07-20 13:48 | HP ---
DATE OF ADMISSION: 07/19/2016 CHIEF COMPLAINT AND HISTORY OF PRESENT ILLNESS: The patient is a 65-year-old gentleman who was diag nosed to have moderately differentiated adenocarcinoma of the rectum in June 2015 when he presented with severe anemia and patient had a workup including a rectal biopsy which showed a moderately dif ferentiated adenocarcinoma with ____on palpation. The patient had been started on chemotherapy and the patient underwent radiation therapy and laparoscopic exploration converted to open exploration, partial colectomy, the upper part of the rectum and sigmoid colon was removed with colostomy placeme nt on 04/12/2016. The patient has been presenting to the emergency room periodically with bowel obstruction. He was e valuated yesterday with severe nausea, vomiting, constipation, and CAT scan of the abdomen and pelvi s was done which showed findings consistent with small-bowel obstruction and the degree of obstructi on had progressed compared to the CT done on 06/07/2016. REVIEW OF SYSTEMS: HEAD: No history of headaches, focal weakness, or numbness. EYES: No blurry vision or glaucoma. ENT: Noncontributory. NECK: No history of thyroid disease. CHEST: No bronchitis, hay fever, or asthma. CARDIOVASCULAR: No PND, orthopnea, palpitations. GASTROINTESTINAL: As above. GENITOURINARY: History of recurrent urinary tract infections. FAMILY HISTORY: Significant for history of diabetes in patient's father. HABITS: Does not smoke or drink. PAST MEDICAL HISTORY: The patient has a history of hypertension. PHYSICAL EXAMINATION: GENERAL: The patient is an average-built male who appears pale, presently in mild distress secondar y to abdominal pain. VITAL SIGNS: Temperature 97.9, blood pressure ____/62, pulse ox 99%. HEENT: Head normocephalic. Mild pallor ____ cyanosis. Tongue is coated, dry. NECK: Supple. No thyromegaly, bruits or lymphadenopathy. CHEST: Clinically clear. HEART: S1, S2 heard with no definite gallops. ABDOMEN: Soft. Bowel sounds hypoactive. Colostomy functioning well. EXTREMITIES: No edema. Pedals 2+ bilaterally. Homans sign is negative. (The patient does complain of calf pain on and off). RECTAL: Deferred at patient's request. LABORATORY DATA: Initial WBC count 8.8, hematocrit 38.9. Sodium 140, potassium 4.2, BUN 20, creati nine 0.68. Lactic acid 1.4. CAT scan done yesterday which showed a small-bowel obstruction. IMPRESSION: 1. History of rectal cancer, status post colostomy, status post partial colectomy with removal of t he upper part of the rectum and sigmoid colon and also resection of terminal ileum ____ the cecum wi th primary anastomosis. 2. History of hypertension. 3. Recurrent urinary tract infection. 4. History of nephrolithiasis. PLAN: Will start the patient on intravenous hydration along with potassium, Zofran. Closely monito r magnesium and potassium levels, bowel rest, NG tube suction. Followup KUB tomorrow morning and ob tain a UA and C and S, followup oncology consultation with Dr. Zapien and a surgical consultation with Dr. Juárez and follow the recommendations. Dictated By: JM HARRIS MD SR/NTS Conf#: [id number] DID#: [id number]
--- NOTE | 2016-07-20 13:53 | RADRPT ---
PROCEDURE: XR Abdomen CLINICAL INDICATION: Small bowel obstruction TECHNIQUE: An AP supine radiograph of the abdomen was submitted. COMPARISON: 04/03/2016 FINDINGS: The bowel gas pattern has improved and now less organized and fewer air distended segments of small bowel are identified either compatible with improving partial obstruction or moderate ileus. Stool is seen within the proximal colon. No organomegaly or discrete mass is identified. A phlebolith is again seen within the right pelvis. Mild degenerative spine changes are noted. IMPRESSION: 1. Considerably improved bowel gas pattern now compatible with mild or partial distal small bowel o bstruction versus a moderate ileus. 2. Mild degenerative spine changes. Physician Franky Date Time Electronically viewed and signed by Physician Franky on 07/20/2016 13:53 /
--- NOTE | 2016-07-20 15:37 | PN ---
Date/Time of Note Date/Time of Note DATE: 07/20/16 TIME: 15:33 Assessment/Plan Lines/Catheters IV Catheter Type (from [facility]): Peripheral IV Coates in Place (from [facility]): No Assessment/Plan Assessment/Plan [facility] Progress Note Date of Service: 07/20/16 Today's Impression & Plan: Overall stable with partial SBO and with UTI. Abd remains benign although no activity in the ostomy. No indication for acute surgical intervention. With above assessment, I've recommended the following for today: 1. Cont aggressive medical support 2. Cont antimicrobials geared toward UTI 3. Keep NPO, but ice chips and meds are OK 4. OK to not do an NG for now, but low threshold to use if sig n/v 5. Keep inhouse 6. Check labs in am 7. If no improvement by Friday, will consider SBFT Thank you again for your great care of this very pleasant patient and wonderful family. If there are any questions, please feel free to call me at [phone]. TOTAL VISIT TIME: 20 minutes of which more than half was spent in [id number] discussion with the patient, possibly including family, as well as coordination of care between multiple physicians and providers. Disclaimer: Inadvertent spelling or grammatical errors are likely due to EHR/ dictation software use and do not reflect on the overall quality of patient care. Updated Clinical Summary: The patient is a very pleasant 65-year-old gentleman with comorbidities including hypertension, who was initially admitted to [facility] through ED on 2015 with signs and symptoms consistent with anemia that eventually was shown to be a large, nearly obstructing mass approximately 12 cm from the anal verge up to the area of the rectosigmoid junction on colonoscopy 06/07/2015. Plan at that time was neoadjuvant treatment with chemoradiation followed by restaging and surgical resection. Patient underwent radiation therapy (Dr. Aranda) that ended September 2015 (patient's recollection was November 2015). Discussions with multiple colleagues revealed evidence that the patient had been not following instructions and there were barriers to get the patient to surgical intervention. At least part of the barriers were due to patient factors alone. Patient reported having contacted my office approximately 5 times to try and make an appointment and was told that we "do not accept" his insurance. Careful review of office records showed no documentation of patient calling. Patient also believed that he had had [employer] as his insurance carrier, but his insurance carrier was [email or web address] (accepted by our program). Patient re-presented to [facility] through ED with constipation, vomiting, abdominal distension and dilated loops of small intestine on 04/01/16. Significant comorbidities included not insignificant malnutrition with BMI 15.8 and dehydration, albumin of 3.6 in the setting of inability to feed enterically. Small area of liver in segment 6 and two very small areas in segment 4a of questionable significance (too small to tell) benign path vs. metastatic disease. We attempted to treat the bowel obstruction with nonoperative management with the hope that the patient would be able to increase his oral intake and improve his nutritional status prior to potentially getting systemic chemotherapy in the neoadjuvant fashion before surgical intervention. Patient very clearly showed us that his bowels were not able to tolerate any meaningful amount of nutritional intake after a few days of this management and for this reason, and after a multidisciplinary discussion, we decided to change our treatment strategy and take the patient to the operating room. List of operative interventions on 04/12/16: 1. Laparoscopic exploration converted to open exploration 2. Partial colectomy with removal of upper part of rectum and sigmoid colon ( modifier 22) 3. Resection of the end of terminal ileum along with cecum with primary anastomosis 4. Performance of an colostomy using distal descending colon 5. Extensive lysis of adhesions (at least 60 minutes) 6. Intraoperative ultrasound of the liver 7. Abdominal lavage D/c home 04/23/16. Two visits to ED for constipation 06/07 and 06/11/16. Readmitted after a few ED visits in June and July 2016 though ED to [facility] on 07/19/16 with UTI and perhaps partial SBO. Comorbidities: 1. Rectal malignancy, s/p chemotherapy and radiation June to Nov 2015; obstruction end of terminal ileum as well as at the level of the rectosigmoid junction with aggressive locally advanced rectal cancer; S/p an otherwise uncomplicated but challenging resection of both involved portions of rectosigmoid as well as terminal ileum in the setting of aggressive rectal cancer with local invasion of the pelvis on 04/13/16. 2. Hypertension 3. Cachexia; BMI 15.8; albumin of 3.6 in the setting of inability to feed enterically 4. Colonoscopy June 2015 5. Anxiety Subjective: No major events or complaints; no abd pain and under control with medications; minimal n/v and no diarrhea; no sob or cp; - flatus; - BM; + activity Objective: Vitals: See below Exam: GENERAL: On exam, the patient was laying in bed and appeared to be comfortable and in no acute distress. ABDOMEN: Soft, nontender and nondistended. Incisions are clean, dry and intact without any evidence of erythema, edema, discharge, or hernia. Ostomy pink; bag without fluid or gas. There are no peritoneal signs or guarding. SKIN: Skin appears to be pink and feels warm to touch. NEUROLOGIC: Patient is awake, alert, and follows commands appropriately. Exam/Review of Systems Vital Signs Vitals Vital Signs Date Time Temp Pulse Resp B/P Pulse Ox O2 Delivery O2 Flow Rate FiO2 07/20/16 07:48 98.2 63 18 142/67 97 07/19/16 13:32 Room Air Intake and Output 07/19/16 07/19/16 07/20/16 15:00 23:00 07:00 Intake Total 500 ml 50 ml 1200 ml Output Total 350 ml Balance 500 ml 50 ml 850 ml Results Result Diagram: 07/20/16 0545 07/20/16 0545 DIVINE BEY M.D. July 20, 2016 15:37
[2016-07-20] MEDS: CEFTRIAXONE 1 GM/50 ML (PMX) 50 ML IVPB SCH (15:42)
--- NOTE | 2016-07-20 17:50 | PN ---
DATE: 07/20/2016 SUBJECTIVE: The patient has some hiccups. Requesting to drink a little bit of soup. No significan t abdominal pain. PHYSICAL EXAMINATION: GENERAL: The patient appears anxious. VITAL SIGNS: Temperature 98.2, blood pressure 140/67, O2 saturation 97% room air. HEENT: Head normocephalic. CHEST: Clinically clear. ABDOMEN: Soft. Hypoactive bowel sounds. Colostomy not functioning. No stool in the colostomy bag . EXTREMITIES: No edema. LABORATORY DATA: WBC count 3.8, hematocrit 31.9, platelet count 248,000. Sodium 137, potassium 4.3 , magnesium 2.8, albumin is 3. KUB done today shows improved bowel gas pattern compared to yesterda y. Urine culture is negative. IMPRESSION: 1. History of rectal cancer, status post colostomy, status post partial colectomy presenting with s mall-bowel obstruction, slightly improved. 2. History of hypertension. 3. Recurrent urinary tract infection. 4. History of nephrolithiasis. 5. Anemia. PLAN: We will continue bowel rest for now. Repeat KUB in a.m. Monitor potassium. IV hydration. If improved, consider clear liquids in the a.m. Dr. Juárez's surgical consultation and recommendations are greatly appreciated and will follow his r ecommendations. Dictated By: JM HARRIS MD, SR/KEVIN Conf#: [id number] DID#: [id number]
[2016-07-20] MEDS ORDERED: MAGNESIUM CITRATE 300 ML BTL PO ONE (18:00)
[2016-07-20 20:00] VITALS: BP 153/67; RESP 20
[2016-07-21] MEDS: D5W-0.45 NACL + KCL 20 MEQ 1,000 ML IV SCH ×3 (00:23→17:00)
[2016-07-21] MEDS: HYDROmorphONE 1 MG/ML SYG IV PRN ×10 (01:50→23:15)
[2016-07-21 05:43] LABS: ADD SCAN DIFF NO; BASOPHILS % 0.4 % (0.0-2.0); EOSINOPHILS % 1.6 % (0.0-7.0); HEMATOCRIT 30.5 % (42.0-52.0); HEMOGLOBIN 9.3 g/dl (14.0-18.0); LYMPHOCYTES # 0.9 10^3/ul (0.8-2.9); LYMPHOCYTES % 37.4 % (15.0-51.0); MEAN CORPUSCULAR HEMOGLOBIN 26.4 pg (29.0-33.0); MEAN CORPUSCULAR HGB CONC 30.5 g/dl (32.0-37.0); MEAN CORPUSCULAR VOLUME 86.6 fl (82.0-101.0); MEAN PLATELET VOLUME 9.3 fl (7.4-10.4); MONOCYTE # 0.5 10^3/ul (0.3-0.9); MONOCYTES % 18.3 % (0.0-11.0); NEUTROPHILS % 42.3 % (39.0-77.0); PLATELET COUNT 217 10^3/UL (140-415); RED BLOOD COUNT 3.52 10^6/ul (4.70-6.10); RED CELL DISTRIBUTION WIDTH 14.9 % (11.5-14.5); WHITE BLOOD COUNT 2.5 10^3/ul (4.8-10.8)
[2016-07-21] MEDS: PANTOPRAZOLE 40 MG INJ IV SCH (05:57)
[2016-07-21 05:58] LABS: POTASSIUM 4.3 mmol/L (3.5-5.1)
[2016-07-21 06:01] LABS: CREATININE 0.63 mg/dl (0.61-1.24)
[2016-07-21 06:02] LABS: CALCIUM 8.2 mg/dl (8.4-10.2)
[2016-07-21 07:40] VITALS: BP 108/56; RESP 16
--- NOTE | 2016-07-21 12:36 | PN ---
Date/Time of Note Date/Time of Note DATE: 07/21/16 TIME: 12:34 Assessment/Plan Lines/Catheters IV Catheter Type (from [facility]): Peripheral IV Coates in Place (from [facility]): No Assessment/Plan Assessment/Plan [facility] Progress Note Date of Service: 07/21/16 Today's Impression & Plan: Overall stable with partial SBO that seems to be resolving, and with UTI that is being treated. Abd remains benign and + activity in the ostomy. No indication for acute surgical intervention. With above assessment, I've recommended the following for today: 1. Cont aggressive medical support 2. Cont antimicrobials geared toward UTI 3. Clear liquid diet and advance as tolerated 4. Keep inhouse 5. Check labs in am 6. Possible d/c home Friday Thank you again for your great care of this very pleasant patient and wonderful family. If there are any questions, please feel free to call me at [phone]. TOTAL VISIT TIME: 20 minutes of which more than half was spent in [id number] discussion with the patient, possibly including family, as well as coordination of care between multiple physicians and providers. Disclaimer: Inadvertent spelling or grammatical errors are likely due to EHR/ dictation software use and do not reflect on the overall quality of patient care. Updated Clinical Summary: The patient is a very pleasant 65-year-old gentleman with comorbidities including hypertension, who was initially admitted to [facility] through ED on 2015 with signs and symptoms consistent with anemia that eventually was shown to be a large, nearly obstructing mass approximately 12 cm from the anal verge up to the area of the rectosigmoid junction on colonoscopy 06/07/2015. Plan at that time was neoadjuvant treatment with chemoradiation followed by restaging and surgical resection. Patient underwent radiation therapy (Dr. Aranda) that ended September 2015 (patient's recollection was November 2015). Discussions with multiple colleagues revealed evidence that the patient had been not following instructions and there were barriers to get the patient to surgical intervention. At least part of the barriers were due to patient factors alone. Patient reported having contacted my office approximately 5 times to try and make an appointment and was told that we "do not accept" his insurance. Careful review of office records showed no documentation of patient calling. Patient also believed that he had had [employer] as his insurance carrier, but his insurance carrier was [employer] (accepted by our program). Patient re-presented to [facility] through ED with constipation, vomiting, abdominal distension and dilated loops of small intestine on 04/01/16. Significant comorbidities included not insignificant malnutrition with BMI 15.8 and dehydration, albumin of 3.6 in the setting of inability to feed enterically. Small area of liver in segment 6 and two very small areas in segment 4a of questionable significance (too small to tell) benign path vs. metastatic disease. We attempted to treat the bowel obstruction with nonoperative management with the hope that the patient would be able to increase his oral intake and improve his nutritional status prior to potentially getting systemic chemotherapy in the neoadjuvant fashion before surgical intervention. Patient very clearly showed us that his bowels were not able to tolerate any meaningful amount of nutritional intake after a few days of this management and for this reason, and after a multidisciplinary discussion, we decided to change our treatment strategy and take the patient to the operating room. + BM 07/21/16. List of operative interventions on 04/12/16: 1. Laparoscopic exploration converted to open exploration 2. Partial colectomy with removal of upper part of rectum and sigmoid colon ( modifier 22) 3. Resection of the end of terminal ileum along with cecum with primary anastomosis 4. Performance of an colostomy using distal descending colon 5. Extensive lysis of adhesions (at least 60 minutes) 6. Intraoperative ultrasound of the liver 7. Abdominal lavage D/c home 04/23/16. Two visits to ED for constipation 06/07 and 06/11/16. Readmitted after a few ED visits in June and July 2016 though ED to [facility] on 07/19/16 with UTI and perhaps partial SBO. Comorbidities: 1. Rectal malignancy, s/p chemotherapy and radiation June to Nov 2015; obstruction end of terminal ileum as well as at the level of the rectosigmoid junction with aggressive locally advanced rectal cancer; S/p an otherwise uncomplicated but challenging resection of both involved portions of rectosigmoid as well as terminal ileum in the setting of aggressive rectal cancer with local invasion of the pelvis on 04/13/16. 2. Hypertension 3. Cachexia; BMI 15.8; albumin of 3.6 in the setting of inability to feed enterically 4. Colonoscopy June 2015 5. Anxiety Subjective: No major events or complaints; no abd pain and under control with medications; no n/v and no diarrhea; no sob or cp; + flatus; + BM; + activity Objective: Vitals: See below Exam: GENERAL: On exam, the patient was laying in bed and appeared to be comfortable and in no acute distress. ABDOMEN: Soft, nontender and nondistended. Incisions are clean, dry and intact without any evidence of erythema, edema, discharge, or hernia. Ostomy pink; bag with fluid and gas. There are no peritoneal signs or guarding. SKIN: Skin appears to be pink and feels warm to touch. NEUROLOGIC: Patient is awake, alert, and follows commands appropriately. Exam/Review of Systems Vital Signs Vitals Vital Signs Date Time Temp Pulse Resp B/P Pulse Ox O2 Delivery O2 Flow Rate FiO2 07/21/16 07:40 97.7 60 16 108/56 97 07/19/16 13:32 Room Air Intake and Output 07/20/16 07/20/16 07/21/16 15:00 23:00 07:00 Intake Total 800 ml 350 ml 1200 ml Output Total 350 ml 150 ml Balance 800 ml 0 ml 1050 ml Results Result Diagram: 07/21/16 0600 07/21/16 0507 DIVINE BEY M.D. July 21, 2016 12:36
[2016-07-21] MEDS: CEFTRIAXONE 1 GM/50 ML (PMX) 50 ML IVPB SCH (14:54)
--- NOTE | 2016-07-21 18:02 | PN ---
DATE: 07/21/2016 SUBJECTIVE: Has less pain and distention. ABDOMEN: No nausea, vomiting. tolerating p.o. liquids well. OBJECTIVE: VITAL SIGNS: Temperature 97.7, blood pressure 108/56, O2 sats 97%. LUNGS: Clinically clear. ABDOMEN: Soft, nontender, no hepatosplenomegaly. Colostomy functioning well. EXTREMITIES: No edema. LABORATORY DATA: WBC low sodium 137, potassium 4.3. WBC count 2.5, hematocrit 30.5. IMPRESSION: 1. Resolving small-bowel obstruction, status post rectal cancer, status post colostomy. Status pos t partial colectomy. 2. Hypertension, well controlled. 3. History of nephrolithiasis. 4. Anemia. 5. Severe leukopenia. PLAN: Will repeat CBC in a.m. Advance the diet, increase activity and if stable over the next 24 h ours, discharge home if okay with Dr. Juárez. Dictated By: JM HARRIS MD, SR/KEVIN Conf#: [id number] DID#: [id number]
[2016-07-21 19:43] VITALS: BP 131/62; RESP 18
[2016-07-22] MEDS: HYDROmorphONE 1 MG/ML SYG IV PRN ×3 (01:35→09:00)
[2016-07-22] MEDS: D5W-0.45 NACL + KCL 20 MEQ 1,000 ML IV SCH (03:00)
[2016-07-22 05:45] LABS: ADD SCAN DIFF NO
[2016-07-22 06:03] LABS: BASOPHILS % 0.2 % (0.0-2.0); EOSINOPHILS # 0.2 10^3/ul (0.0-0.5); EOSINOPHILS % 3.6 % (0.0-7.0); HEMATOCRIT 32.4 % (42.0-52.0); HEMOGLOBIN 10.1 g/dl (14.0-18.0); LYMPHOCYTES # 1.1 10^3/ul (0.8-2.9); LYMPHOCYTES % 24.7 % (15.0-51.0); MEAN CORPUSCULAR HEMOGLOBIN 26.8 pg (29.0-33.0); MEAN CORPUSCULAR HGB CONC 31.2 g/dl (32.0-37.0); MEAN CORPUSCULAR VOLUME 85.9 fl (82.0-101.0); MEAN PLATELET VOLUME 9.2 fl (7.4-10.4); MONOCYTE # 0.5 10^3/ul (0.3-0.9); MONOCYTES % 11.6 % (0.0-11.0); NEUTROPHIL # 2.6 10^3/ul (1.6-7.5); NEUTROPHILS % 59.2 % (39.0-77.0); PLATELET COUNT 255 10^3/UL (140-415); RED BLOOD COUNT 3.77 10^6/ul (4.70-6.10); RED CELL DISTRIBUTION WIDTH 14.6 % (11.5-14.5); WHITE BLOOD COUNT 4.4 10^3/ul (4.8-10.8)
[2016-07-22] MEDS: PANTOPRAZOLE 40 MG INJ IV SCH (06:24)
[2016-07-22 06:52] LABS: POTASSIUM 4.2 mmol/L (3.5-5.1)
[2016-07-22 06:55] LABS: CREATININE 0.56 mg/dl (0.61-1.24)
[2016-07-22 06:56] LABS: CALCIUM 8.4 mg/dl (8.4-10.2); MAGNESIUM 2.1 mg/dl (1.7-2.5)
[2016-07-22 07:22] VITALS: BP 142/65; RESP 20
--- NOTE | 2016-07-22 23:10 | CONS ---
Date/Time of Note Date/Time of Note DATE: 07/22/16 TIME: 10:57 VK LE Assessment/Plan Assessment/Plan Chief Complaint/Hosp Course Resolving small-bowel obstruction, status post rectal cancer, status post colostomy. Status post partial colectomy. post chemo/xrt, followed by surgery 1. Laparoscopic exploration converted to open exploration 2. Partial colectomy with removal of upper part of rectum and sigmoid colon (modifier 22) 3. Resection of the end of terminal ileum along with cecum with primary anastomosis 4. Performance of an colostomy using distal descending colon 5. Extensive lysis of adhesions 6. Intraoperative ultrasound of the liver 7. Abdominal lavage PLAN- CHEMO, PROB NEXT WE AFTER COMPLETING ATB FOR UTI Anemia.- COMPLEX Severe leukopenia. recheck as outpt monitor blood count closely UTI- COMPLETE ATB OUTPT Hypertension, well controlled. History of nephrolithiasis. Problems: Consultation Date/Type/Reason Admit Date/Time July 19, 2016 at 12:29 Date of Consultation: July 22, 2016 Type of Consultation: HEMEON Reason for Consultation RECTAL CANCER Referring Provider: JM HARRIS MD Hx of Present Illness A very pleasant but unfortunate 65-year-old gentleman with stage IV rectal cancer status post palliative surgical intervention 04/2016 presenting with a combination of urinary tract infection as well as partial small-bowel obstruction. the patient did not have any indication for acute surgical intervention. pt was treated medically and his condition improved he was noted to have leukopenia and i was asked to provide [facility] consult HISTORY OF PRESENT ILLNESS: The patient is a very pleasant 65-year-old gentleman pt was dx in in April 2016, for essentially what was found to be metastatic stage IV colorectal malignancy. He has been having abdominal discomfort and some nausea and vomiting and was seen in the emergency room a few times over the course of the last few weeks He reported nonbilious and nonbloody vomiting. He has not had output through his ostomy for a few days and also has urinary tract infection on the most recent urinalysis done today. Note that his laboratory values are relatively benign and electrolytes are normal. Past Surgical History Past Surgical Hx: no surgical history Social History Smoking Status: Former smoker Exam/Review of Systems Vital Signs Vitals Vital Signs Date Time Temp Pulse Resp B/P Pulse Ox O2 Delivery O2 Flow Rate FiO2 07/22/16 07:22 97.9 62 20 142/65 100 5/19/17 13:32 Room Air Intake and Output 07/21/16 07/21/16 07/22/16 15:00 23:00 07:00 Intake Total 500 ml 1670 ml 500 ml Balance 500 ml 1670 ml 500 ml Exam ALLERGIES: NO KNOWN DRUG ALLERGIES. MEDICATIONS: The patient is on: 1. Ciprofloxacin. 2. [place]. SOCIAL HISTORY: The patient lives with his family. He does not report any smoking, drinking, or intravenous drug use. REVIEW OF SYSTEMS: Other than the above-mentioned, there are no other pertinent positives or pertinent negatives in a complete 14-point review of systems. PHYSICAL EXAMINATION: GENERAL: The patient appears to be a very pleasant gentleman of /[place] descent, appearing stated age, lying in bed comfortably and in no acute distress. BMI is 16.7. HEENT: Normocephalic and atraumatic. Extraocular muscles and hearing are grossly intact bilaterally and symmetrically. Sclerae are nonicteric. Oral cavity is clear; oral mucosa appeared to be pink and moist. Dentition: fair to poor. NECK: Supple. There is no lymphadenopathy or JVD. There is no submental, submandibular or supraclavicular lymphadenopathy. CHEST: Rises symmetrically with each breath; patient is breathing comfortably. There are no audible wheezes, rales or rhonchi on the gross exam. HEART: Pulse is regular and palpable on the left wrist. Capillary refill was normal. Carotid pulses are palpable bilaterally and symmetrically in the neck. EXTREMITIES: Lower extremities contain no pitting edema around the ankles bilaterally and symmetrically. ABDOMEN: Soft, nondistended and nontender. His ostomy is pink and viable. There are no fluids or gas within the ostomy bag. SKIN: Appears to be pink and feels warm to touch. NEUROLOGIC: Awake, alert, and follows commands appropriately. Results Result Diagram: 07/22/16 0502 07/22/16 0502 Results 24 hrs Laboratory Tests Test 07/22/16 05:02 White Blood Count 4.4 #L Red Blood Count 3.77 L Hemoglobin 10.1 L Hematocrit 32.4 L Mean Corpuscular Volume 85.9 Mean Corpuscular Hemoglobin 26.8 L Mean Corpuscular Hemoglobin Concent 31.2 L Red Cell Distribution Width 14.6 H Platelet Count 255 Mean Platelet Volume 9.2 Neutrophils % 59.2 Lymphocytes % 24.7 Monocytes % 11.6 H Eosinophils % 3.6 Basophils % 0.2 Nucleated Red Blood Cells % 0.0 Neutrophils # 2.6 Lymphocytes # 1.1 Monocytes # 0.5 Eosinophils # 0.2 Basophils # 0.0 Nucleated Red Blood Cells # 0.0 Sodium Level 133 L Potassium Level 4.2 Chloride Level 98 Carbon Dioxide Level 28 Anion Gap 11 Blood Urea Nitrogen 16 Creatinine 0.56 L Glucose Level 59 #L Calcium Level 8.4 Magnesium Level 2.1 Procedures Procedures IMAGING: Patient had a chest x-ray which demonstrated no active cardiopulmonary changes. He had an abdominal and pelvic CT on 07/18/2016 that demonstrated findings in keeping with small-bowel obstruction likely related to known rectal mass. The view of obstruction had progressed compared to the CT done on 06/07/2016. Partial colonic resection and left lower quadrant colostomy and ileocolic anastomosis was seen. No intra-abdominal loculated fluid collection or pneumoperitoneum was noted. He had aortic iliac atherosclerosis was noted. Mild patchy infiltrates in the right lung base were also noted. JASMINA PALOMARES MD July 22, 2016 23:09
--- NOTE | 2016-07-23 03:33 | DS ---
DATE OF ADMISSION: 07/19/2016 DATE OF DISCHARGE: 07/22/2016 FINAL DIAGNOSES: 1. Small-bowel obstruction, resolved. 2. Rectal carcinoma status post partial colectomy with placement of colostomy. 3. Hypertension. 4. Nephrolithiasis. 5. History of prior nephrolithiasis. 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 CAT scan showed findings consistent with a small-bowel obstruction and the patient was placed on bowel rest, IV fluids and gradually improved and was given 1 dose of magnesium citrate with good res ults, and the patient was seen by Dr. Juárez from surgical standpoint and the patient was discharged home in much improved condition. He has an appointment with Dr. Zapien in 2 days for chemothera py. The patient will follow up with Dr. Juárez and Dr. Zapien. He is to take stool soften ers on a regular basis namely Colace 100 mg b.i.d., mag citrate on an as needed basis and maintain a dequate fluid intake. DISCHARGE CONDITION: Much improved. Dictated By: JM HARRIS MD SR/NTS Conf#: [id number] DID#: [id number]
== END 2016-07-22 12:00 | disposition home or self-care (01) | DRG 389 ==
LOC: E/R 09:23 → MS2 12:29
PROVIDERS: ADMIT Internal Medicine; ATTEND Internal Medicine
DX: K56.60 Unspecified intestinal obstruction (principal); R64 Cachexia; N39.0 Urinary tract infection, site not specified; N20.0 Calculus of kidney; C20 Malignant neoplasm of rectum; Z68.1 Body mass index [BMI] 19.9 or less, adult; I10 Essential (primary) hypertension; D64.9 Anemia, unspecified; D72.819 Decreased white blood cell count, unspecified; Z93.3 Colostomy status
CPT/HCPCS: 71010; 74000; 80048; 80053; 81001; 81003; 83605; 83690; 83735; 84484; 85025; 85610; 85730; 87086; 93005; C9113; J0696; J1170; J2405; J3480; J7040

== ENCOUNTER 2016-07-25 09:16 | Inpatient (IN) | payer BC, OTHER ==
[~2016-07-25] VITALS: Ht 182.9 cm; Wt 56.6 kg
[2016-07-25 09:17] VITALS: Ht 182.9 cm; Wt 56.6 kg
[2016-07-25] MEDS ORDERED: HYDROmorphONE 1 MG/ML SYG IV STA ×2 (09:43→10:50)
[2016-07-25] MEDS ORDERED: ONDANSETRON 4 MG INJ IV STA (09:43)
[2016-07-25] MEDS ORDERED: SOD CHLORIDE 0.9% 1,000 ML IV STA (09:43)
[2016-07-25 10:10] LABS: ADD SCAN DIFF NO
--- NOTE | 2016-07-25 10:17 | ERA ---
ER Documentation Chief Complaint Date/Time DATE: 07/25/16 TIME: 10:16 Chief Complaint ABD PAIN WITH VOMITING HPI 65-year-old male history of colorectal mass who presents with abdominal pain and vomiting and lack of bowel movement. The patient was discharged 2 days ago with a diagnosis of resolved bowel obstruction. He had surgical consultation at that point. He was supposed to have chemotherapy today but still has the symptoms. The patient describes severe abdominal pain that is 9 out of 10 and constant with associated nonbloody nonbilious emesis. ROS All systems reviewed and are negative except as per history of present illness. Medications Home Meds Discontinued Reported Medications Ciprofloxacin Hcl* (Ciprofloxacin Hcl*) 500 Mg Tablet, 500 MG PO BID, #14 TAB FOR 7 DAYS STARTED 07-12-16 07/18/16 Hydrocodone/Acetaminophen ([place] 10-325 Tablet) 1 Each Tablet, 1 EACH PO Q6 Y for PAIN, TAB 07/18/16 Furosemide* (Lasix*) 20 Mg Tablet, 20 MG PO DAILY, TAB 06/07/16 Pantoprazole* (Protonix*) 40 Mg Tablet.dr, 40 MG PO DAILY, TAB 06/07/16 Potassium Chloride* (K-Dur*) 20 Meq Tab.prt.sr, 20 MEQ PO DAILY, TAB.SA 06/07/16 Discontinued Scripts Ferrous Sulfate* (Ferrous Sulfate*) 325 Mg Tabec, 325 MG PO TID for 30 Days, TAB Prov:GLORY CHEW 04/19/16 Allergies Allergies: Coded Allergies: No Known Allergies (Verified Allergy, Unknown, 07/25/16) PMhx/Soc History of Surgery: Yes (colon surgery "3 months ago") Anesthesia Reaction: No Hx Neurological Disorder: No Hx Respiratory Disorders: No Hx Cardiac Disorders: No Hx Psychiatric Problems: No Hx Miscellaneous Medical Probl: No Hx Alcohol Use: No Hx Substance Use: No Hx Tobacco Use: No Smoking Status: Never smoker FmHx Family History: No diabetes Physical Exam Vitals Vital Signs Date Time Temp Pulse Resp B/P Pulse Ox O2 Delivery O2 Flow Rate FiO2 07/25/16 09:17 97.6 90 18 182/80 99 Physical Exam General: Cachectic male appears slightly dehydrated Head: Normocephalic, atraumatic. Eyes: Pupils equally reactive, EOM intact ENT: Dry mucous membranes Neck: Supple, no lymphadenopathy Respiratory: Lungs clear bilaterally, no distress Cardiovascular: RRR, no murmurs, rubs, or gallops Abdominal: Soft, mild diffuse tenderness with mild guarding, no peritonitis : Deferred MSK: No edema, no unilateral swelling, 5/5 strength Neurologic: Alert and oriented, moving all extremities, normal speech, no focal weakness, no cerebellar signs Skin: No rash Psych: Normal mood Result Diagram: 07/25/1655 07/25/16 0955 Results 24 hrs Laboratory Tests Test 07/25/16 09:55 White Blood Count 7.310^3/ul Red Blood Count 4.7610^6/ul Hemoglobin 12.6g/dl Hematocrit 39.7% Mean Corpuscular Volume 83.4fl Mean Corpuscular Hemoglobin 26.5pg Mean Corpuscular Hemoglobin Concent 31.7g/dl Red Cell Distribution Width 14.6% Platelet Count 89860^3/UL Mean Platelet Volume 9.6fl Neutrophils % 69.7% Lymphocytes % 22.9% Monocytes % 5.9% Eosinophils % 1.1% Basophils % 0.3% Nucleated Red Blood Cells % 0.0/100WBC Neutrophils # 5.110^3/ul Lymphocytes # 1.710^3/ul Monocytes # 0.410^3/ul Eosinophils # 0.110^3/ul Basophils # 0.010^3/ul Nucleated Red Blood Cells # 0.010^3/ul Prothrombin Time 13.0Sec Prothrombin Time Ratio 1.0 INR International Normalized Ratio 0.98 Activated Partial Thromboplast Time 30.6Sec Sodium Level 139mmol/L Potassium Level 4.1mmol/L Chloride Level 97mmol/L Carbon Dioxide Level 30mmol/L Anion Gap 16 Blood Urea Nitrogen 10mg/dl Creatinine 0.57mg/dl Glucose Level 98mg/dl Calcium Level 9.2mg/dl Total Bilirubin 0.2mg/dl Direct Bilirubin 0.00mg/dl Indirect Bilirubin 0.2mg/dl Aspartate Amino Transf (AST/SGOT) 15IU/L Alanine Aminotransferase (ALT/SGPT) 24IU/L Alkaline Phosphatase 83IU/L Total Protein 6.9g/dl Albumin 3.8g/dl Globulin 3.10g/dl Albumin/Globulin Ratio 1.22 Lipase 26U/L Current Medications Medications (Trade) Dose Ordered Sig/Krystle Route PRN Reason Start Time Stop Time Status Last Admin Dose Admin Sodium Chloride (NS) 1,000 ml @ 1,000 mls/hr Q1H STAT IV 07/25/16 09:43 07/25/16 10:42 DC 07/25/16 09:49 Hydromorphone HCl (Dilaudid) 1 mg ONCE STAT IV 07/25/16 09:43 07/25/16 09:44 DC 07/25/16 09:50 Ondansetron HCl (Zofran Inj) 4 mg ONCE STAT IV 07/25/16 09:43 07/25/16 09:44 DC 07/25/16 09:49 Hydromorphone HCl (Dilaudid) 1 mg ONCE STAT IV 07/25/16 10:50 07/25/16 10:51 DC 07/25/16 11:32 Lidocaine (Xylocaine (Viscous)) 15 ml ONCE ONCE PO 07/25/16 11:00 07/25/16 11:01 DC Lorazepam (Ativan) 0.5 mg ONCE ONCE IV 07/25/16 11:00 07/25/16 11:01 DC 07/25/16 11:32 Ondansetron HCl (Zofran Inj) 4 mg BRIDGE ORDER PRN IV NAUSEA AND/OR VOMITING 07/25/16 12:00 07/26/16 11:59 Acetaminophen (Tylenol Tab) 650 mg ER BRIDGE PRN PO MILD PAIN/FEVER 07/25/16 12:00 07/26/16 11:59 Procedures/MDM EKG, MONITORS, & DIAGNOSTIC IMAGING: CT abdomen and pelvis: IMPRESSION: Unchanged pattern and severity of considerable fluid-filled small bowel dilatation compatible with small bowel obstruction. Infiltrative mass of the upper rectum. Mild right lower lobe bronchiolitis, unchanged. RPTAT: [facility] LAB INTERPRETATION: No significant leukocytosis or abnormalities MEDICAL DECISION MAKING: Patient presents with abdominal pain and vomiting that is concerning for recurrent bowel obstruction likely secondary to colorectal mass. The patient will benefit from repeat CT imaging, IV fluids, pain medication and likely hospitalization. ER COURSE: The patient had persistent pain requiring repeat doses of Dilaudid. The patient 's laboratory testing and CT imaging confirmed obstruction. An NG tube was placed. Patient will be admitted for further management. I kept the patient and/or family informed of laboratory and diagnostic imaging results throughout the emergency room course. DISPOSITION PLAN: Medical surgical admission for management of malignant bowel obstruction CONSULTATION: Accepting care team and consultations: I discussed the current laboratory data, diagnostic imaging and emergency care provided. Admitting team: Dr. Urena Admitting team indication: Insurance directed Consulting services: Dr. Juárez has been paged Departure Diagnosis: Primary Impression: Small bowel obstruction Additional Impression: Colonic mass Condition: Stable VIRI GOMEZ MD July 25, 2016 10:17
[2016-07-25 10:25] LABS: BASOPHILS % 0.3 % (0.0-2.0); EOSINOPHILS # 0.1 10^3/ul (0.0-0.5); EOSINOPHILS % 1.1 % (0.0-7.0); HEMATOCRIT 39.7 % (42.0-52.0); HEMOGLOBIN 12.6 g/dl (14.0-18.0); LYMPHOCYTES # 1.7 10^3/ul (0.8-2.9); LYMPHOCYTES % 22.9 % (15.0-51.0); MEAN CORPUSCULAR HEMOGLOBIN 26.5 pg (29.0-33.0); MEAN CORPUSCULAR HGB CONC 31.7 g/dl (32.0-37.0); MEAN CORPUSCULAR VOLUME 83.4 fl (82.0-101.0); MEAN PLATELET VOLUME 9.6 fl (7.4-10.4); MONOCYTE # 0.4 10^3/ul (0.3-0.9); MONOCYTES % 5.9 % (0.0-11.0); NEUTROPHIL # 5.1 10^3/ul (1.6-7.5); NEUTROPHILS % 69.7 % (39.0-77.0); PLATELET COUNT 358 10^3/UL (140-415); RED BLOOD COUNT 4.76 10^6/ul (4.70-6.10); RED CELL DISTRIBUTION WIDTH 14.6 % (11.5-14.5); WHITE BLOOD COUNT 7.3 10^3/ul (4.8-10.8)
[2016-07-25 10:27] LABS: ALBUMIN 3.8 g/dl (3.3-4.9)
[2016-07-25 10:28] LABS: POTASSIUM 4.1 mmol/L (3.5-5.1)
[2016-07-25 10:30] LABS: ALBUMIN/GLOBULIN RATIO 1.22; BILIRUBIN,INDIRECT 0.2 mg/dl (0-1.1); BILIRUBIN,TOTAL 0.2 mg/dl (0.2-1.3); CREATININE 0.57 mg/dl (0.61-1.24); TOTAL PROTEIN 6.9 g/dl (6.1-8.1)
[2016-07-25 10:31] LABS: CALCIUM 9.2 mg/dl (8.4-10.2)
[2016-07-25 10:36] LABS: INR 0.98
[2016-07-25 10:37] LABS: PARTIAL THROMBOPLASTIN TIME 30.6 Sec (25.0-35.0)
--- NOTE | 2016-07-25 10:45 | RADRPT ---
PROCEDURE: CT Abdomen and Pelvis without contrast. CLINICAL INDICATION: Vomiting and abdominal pain. TECHNIQUE: Multiple contiguous axial CT images of the abdomen and pelvis were obtained without the administration of intravenous contrast. Coronal and sagittal reconstructions were also performed. CTDIvol (mGy): 5.13; Total Exam DLP (mGy-cm): 289.42. One or more of the following dose reduction techniques were utilized: - Automated exposure control. - Adjustment of the mA and/or kV according to patient size. - Use of iterative reconstruction technique. COMPARISON: Abdominal x-ray 07/20/2016. CT abdomen/pelvis 07/18/2016. FINDINGS: Limited imaging of the lower thorax demonstrates scattered nonspecific peribronchovascular ground-gl ass nodules within the right lower lobe, which are unchanged. Imaging findings may reflect bronchiol itis. The liver and spleen are homogeneous in density. The gallbladder, pancreas and adrenal glands are u nremarkable. The kidneys are symmetric in size. There are no nephroureteral stones. There is no hydronephrosis o r abnormal perinephric inflammation. The abdominal aorta is normal in caliber. Atherosclerotic calcification is present. There is no per iaortic / retroperitoneal lymphadenopathy. The stomach is collapsed. Considerable fluid-filled small bowel dilatation is observed and grossly unchanged. The largest loops of distended small bowel measure approximately 4.0 cm in greatest diam eter. Small bowel feces is seen within a dilated loop of intestines within the lower abdomen. A col ostomy is present within the left side of the abdomen. Irregular thickening of the upper rectum is observed and unchanged. There is marked irregularity of the posterior bladder wall suggesting invas ion of tumor. Diffuse mesenteric edema is observed. The prostate gland is unremarkable. There is no free pelvic fluid. There is no pelvic sidewall or inguinal lymphadenopathy. Scrotal wall edema with small bilateral hydroceles are present. Degenerative changes of the spine are present. IMPRESSION: Unchanged pattern and severity of considerable fluid-filled small bowel dilatation compatible with s mall bowel obstruction. Infiltrative mass of the upper rectum. Mild right lower lobe bronchiolitis, unchanged. RPTAT: [facility] .Radha Marshall MD, MD Date Time Electronically viewed and signed by .Radha Marshall MD, on 07/25/2016 10:44 .T/
[2016-07-25] MEDS ORDERED: LORAZEPAM 2 MG INJ IV ONE (11:00)
[2016-07-25] MEDS ORDERED: LIDOCAINE 2% VISC 15 ML CUP PO ONE (11:00)
[2016-07-25] MEDS ORDERED: ONDANSETRON 4 MG INJ IV PRN ×2 (12:00→17:30)
[2016-07-25] MEDS ORDERED: ACETAMINOPHEN 325 MG TAB PO PRN (12:00)
[2016-07-25 14:31] VITALS: PULSE 70
[2016-07-25 16:49] VITALS: BP 156/72; RESP 19
[2016-07-25] MEDS ORDERED: HYDROmorphONE 1 MG/ML SYG IV PRN (17:30)
[2016-07-25] MEDS: D5W-0.45 NACL + KCL 20 MEQ 1,000 ML IV SCH (18:30)
[2016-07-25 19:27] VITALS: BP 163/93; RESP 18
[2016-07-25 19:40] VITALS: BP_SYST 163; BP_SYST 193; BP_DIAS 77; BP_DIAS 93; RESP 16; RESP 18
[2016-07-25] MEDS: LORAZEPAM 2 MG INJ IV PRN (19:59)
[2016-07-25] MEDS: HYDROmorphONE 2 MG/ML SYG IV PRN (22:46)
[2016-07-25 22:54] LABS: ADD UMIC YES; URINE BILIRUBIN (Dip) NEGATIVE (NEGATIVE); URINE BLOOD (Dip) 3+ (NEGATIVE); URINE COLOR LT. YELLOW (YELLOW); URINE GLUCOSE (Dip) NEGATIVE (NEGATIVE); URINE KETONES (Dip) 15 (NEGATIVE); URINE LEUKOCYTE ESTERASE (Dip) 1+ (NEGATIVE); URINE NITRITE (Dip) NEGATIVE (NEGATIVE); URINE TOTAL PROTEIN (Dip) 1+ (NEGATIVE); URINE UROBILINOGEN (Dip) 0.2 E.U./dL (0.1-1.0)
[2016-07-25 23:02] LABS: BACTERIA,URINE MANY
[2016-07-26] MEDS: HYDROmorphONE 2 MG/ML SYG IV PRN ×6 (02:38→22:24)
[2016-07-26] MEDS: D5W-0.45 NACL + KCL 20 MEQ 1,000 ML IV SCH ×2 (04:46→14:17)
[2016-07-26 06:07] LABS: ADD SCAN DIFF NO
[2016-07-26 06:14] LABS: BASOPHILS % 0.4 % (0.0-2.0); EOSINOPHILS # 0.1 10^3/ul (0.0-0.5); EOSINOPHILS % 2.7 % (0.0-7.0); HEMATOCRIT 36.8 % (42.0-52.0); HEMOGLOBIN 11.2 g/dl (14.0-18.0); MEAN CORPUSCULAR HEMOGLOBIN 26.2 pg (29.0-33.0); MEAN CORPUSCULAR HGB CONC 30.4 g/dl (32.0-37.0); MEAN CORPUSCULAR VOLUME 86.2 fl (82.0-101.0); MEAN PLATELET VOLUME 8.9 fl (7.4-10.4); MONOCYTE # 0.5 10^3/ul (0.3-0.9); MONOCYTES % 10.4 % (0.0-11.0); NEUTROPHIL # 3.2 10^3/ul (1.6-7.5); NEUTROPHILS % 65.1 % (39.0-77.0); PLATELET COUNT 298 10^3/UL (140-415); RED BLOOD COUNT 4.27 10^6/ul (4.70-6.10); RED CELL DISTRIBUTION WIDTH 14.6 % (11.5-14.5); WHITE BLOOD COUNT 4.9 10^3/ul (4.8-10.8)
[2016-07-26 06:35] LABS: ALBUMIN 3.6 g/dl (3.3-4.9); ALBUMIN/GLOBULIN RATIO 1.24; BILIRUBIN,INDIRECT 0.1 mg/dl (0-1.1); BILIRUBIN,TOTAL 0.1 mg/dl (0.2-1.3); CREATININE 0.56 mg/dl (0.61-1.24); MAGNESIUM 2.5 mg/dl (1.7-2.5); POTASSIUM 4.9 mmol/L (3.5-5.1); TOTAL PROTEIN 6.5 g/dl (6.1-8.1)
[2016-07-26 07:53] VITALS: BP 148/68; RESP 18
--- NOTE | 2016-07-26 09:18 | HP ---
DATE OF ADMISSION: 07/25/2016 CHIEF COMPLAINT AND HISTORY OF PRESENT ILLNESS: The patient is a 65-year-old gentleman with a histo ry of rectal CA, presenting with severe abdominal pain, vomiting, and constipation and the pain is 1 0/10. The patient was evaluated in the emergency room, found to have small-bowel obstruction and was admitted. He was discharged only 3 days prior with similar complaints. The patient has been diagn osed to have moderately differentiated adenocarcinoma of the rectum in June of 2015 when he present ed with severe anemia and he has had surgery with a laparoscopic exploration, converted to open oper ation, partial colectomy with colostomy placement in 04/12/2016. The patient is due for chemotherap y. He has had several ER evaluations for recurrent bowel obstruction. Last hospitalized about a we ek ago, responded well to conservative management. REVIEW OF SYSTEMS: HEAD: No history of headaches, focal weakness, or numbness. EYES: No blurry vision or glaucoma. ENT: Noncontributory. NECK: No history of thyroid disease. CHEST: No bronchitis, hay fever, or asthma. CARDIOVASCULAR: No PND, orthopnea, palpitation. GASTROINTESTINAL: As above. GENITOURINARY: History of recurrent urinary tract infections and history of nephrolithiasis. FAMILY HISTORY: Significant for history of diabetes in patient's father. HABITS: Does not smoke or drink. The patient has a history of ____ hypertension. PHYSICAL EXAMINATION: GENERAL: The patient is an average-built male who appears pale, in moderate distress. VITAL SIGNS: Temperature 97.6, heart rate 56 per minute regular, blood pressure 148/68, O2 saturati on 99% on room air. HEENT: Head normocephalic. No mild pallor without cyanosis. Chest clinically clear. HEART: S1, S2 with no definite gallops. ABDOMEN: Soft. Bowel sounds hypoactive. Mild diffuse tenderness without rebound. EXTREMITIES: No edema. Homans sign is negative. NEUROLOGIC: No localizing or lateralizing signs. LABORATORY DATA: Initial WBC count 7.3, hematocrit 39.7. Sodium 130, potassium 4.1, BUN 10, creati nine 0.57. LFTs normal. Albumin 3.8. Urinalysis shows 5 to 10 RBCs, urine hemoglobin 3+, urine is cloudy. CAT scan of the abdomen and pelvis shows fluid-filled small bowel dilatation compared with small-bow el obstruction, infiltrative mass noted in the upper rectum, right lower lobe bronchiolitis. IMPRESSION: 1. Recurrent small-bowel obstruction, status post colostomy and partial colectomy and removal of up per part of the rectum, sigmoid colon and also status post resection of terminal ileum. 2. History of hypertension. 3. Recurrent urinary tract infection. 4. History of nephrolithiasis. PLAN: We will keep the patient on bowel rest, NG tube suction, narcotic analgesia. Repeat KUB and surgical consultation with Dr. Juárez and follow his recommendations. The patient is requesting the NG tube be discontinued. Will discuss with Dr. Juárez before doing the same. Closely monitor potas sium levels, magnesium levels and repeat urine cultures and antibiotic therapy if necessary. Dictated By: JM HARRIS MD, SR/NTS Conf#: [id number] DID#: [id number]
--- NOTE | 2016-07-26 14:11 | CONS ---
Date/Time of Note Date/Time of Note DATE: 07/26/16 TIME: 14:07 Assessment/Plan Assessment/Plan Additional Assessment/Plan [facility] SUBSEQUENT INPATIENT CONSULTATION NOTE DATE OF CONSULTATION: 07/26/2016 PLACE OF SERVICE: [facility] 6th floor. DATE OF ADMISSION: 07/25/2016 ASSESSMENT AND PLAN: A very pleasant but unfortunate 65-year-old gentleman with stage IV rectal cancer status post palliative surgical intervention 2016 representing with a clinical picture consistent with partial small-bowel obstruction. Currently, the patient does not have any indication for acute surgical intervention. As before, surgical intervention is relatively contraindicated in this setting and would only delay life- prolonging chemotherapy, which was scheduled to start this week, but had to be delayed. There may be an issue with cancer invading into bladder to cause frequent UTI's , expunge of material in the urine, and perhaps even explain slight output through the anus. A remedy may not be possible given clinical picture, but we could benefit from expertise of our urology colleagues in this regard. We may also have to consider coil builder antimicrobial therapy if a communication does exist between the bladder and the pelvis (may require ID consultation). Sorting these issues is important since urinary tract infection and partial bowel obstruction tend to delay his chemotherapy. I explained all of this in detail with the patient and answered all their questions to the best of my ability. I believe that they understand and agree with the plan. With above assessment, I recommend the followin. Continue in-house care. 2. Clear liquid diet 3. Consider urology consultation 4. Consider ID consultation 5. Dr. Zapien to please also be aware of the condition for timing of systemic chemotherapy and any other interventions 6. Symptom control. Thank you again for allowing us to participate and remain part of the care team of this very pleasant gentleman and his wonderful family. If there are any questions, please feel free to contact me at [phone]. TOTAL VISIT TIME: 45 minutes of which more than half was spent in [id number] discussion with the patient, as well as coordination of care between multiple physicians and providers. Updated Clinical Summary: The patient is a very pleasant 65-year-old gentleman with comorbidities including hypertension, who was initially admitted to [facility] through ED on 2015 with signs and symptoms consistent with anemia that eventually was shown to be a large, nearly obstructing mass approximately 12 cm from the anal verge up to the area of the rectosigmoid junction on colonoscopy 06/07/2015. Plan at that time was neoadjuvant treatment with chemoradiation followed by restaging and surgical resection. Patient underwent radiation therapy (Dr. Aranda) that ended September 2015 (patient's recollection was November 2015). Discussions with multiple colleagues revealed evidence that the patient had been not following instructions and there were barriers to get the patient to surgical intervention. At least part of the barriers were due to patient factors alone. Patient reported having contacted my office approximately 5 times to try and make an appointment and was told that we "do not accept" his insurance. Careful review of office records showed no documentation of patient calling. Patient also believed that he had had [employer] as his insurance carrier, but his insurance carrier was [employer] (accepted by our program). Patient re-presented to [facility] through ED with constipation, vomiting, abdominal distension and dilated loops of small intestine on 04/01/16. Significant comorbidities included not insignificant malnutrition with BMI 15.8 and dehydration, albumin of 3.6 in the setting of inability to feed enterically. Small area of liver in segment 6 and two very small areas in segment 4a of questionable significance (too small to tell) benign path vs. metastatic disease. We attempted to treat the bowel obstruction with nonoperative management with the hope that the patient would be able to increase his oral intake and improve his nutritional status prior to potentially getting systemic chemotherapy in the neoadjuvant fashion before surgical intervention. Patient very clearly showed us that his bowels were not able to tolerate any meaningful amount of nutritional intake after a few days of this management and for this reason, and after a multidisciplinary discussion, we decided to change our treatment strategy and take the patient to the operating room. + BM 07/21/16. List of operative interventions on 04/12/16: 1. Laparoscopic exploration converted to open exploration 2. Partial colectomy with removal of upper part of rectum and sigmoid colon ( modifier 22) 3. Resection of the end of terminal ileum along with cecum with primary anastomosis 4. Performance of an colostomy using distal descending colon 5. Extensive lysis of adhesions (at least 60 minutes) 6. Intraoperative ultrasound of the liver 7. Abdominal lavage D/c home 04/23/16. Two visits to ED for constipation 06/07 and 06/11/16. Readmitted after a few ED visits in June and July 2016 though ED to [facility] on 07/19/16 with UTI and perhaps partial SBO. Treated non-operatively successfully with treatment of UTI and resolution of partial SBO; d/c home 07/22/16. Readmitted for similar complaints. Comorbidities: 1. Rectal malignancy, s/p chemotherapy and radiation June to Nov 2015; obstruction end of terminal ileum as well as at the level of the rectosigmoid junction with aggressive locally advanced rectal cancer; S/p an otherwise uncomplicated but challenging resection of both involved portions of rectosigmoid as well as terminal ileum in the setting of aggressive rectal cancer with local invasion of the pelvis on 04/13/16. 2. Hypertension 3. Cachexia; BMI 15.8; albumin of 3.6 in the setting of inability to feed enterically 4. Colonoscopy June 2015 5. Anxiety 6. Multiple visits to ED and admissions to hospital through July 2016 HISTORY OF PRESENT ILLNESS: The patient is a very pleasant 65-year-old gentleman with above-mentioned comorbidities who we were kindly asked to consult regarding management of his lack of output through his ostomy for 2 days prior to readmission to [facility] on 07/25/16. Patient is very well known to me as mentioned above, since his operation in April 2016, for essentially what was found to be metastatic stage IV colorectal malignancy. He was recently d/c' d from the hospital and was relatively doing well until two days ago when he stopped having output through his ostomy and had nausea and 3 episodes of non- bloody vomiting. He has readmitted through the ED to [facility]. Note that his laboratory values are relatively benign and electrolytes are normal. CT scan showed dilated small bowel without obvious transition point and no free air. Labs normal. ALLERGIES: NO KNOWN DRUG ALLERGIES. MEDICATIONS: Recorded in EHR and carefully reviewed. Also previously the patient was on: 1. Ciprofloxacin. 2. Tobias. SOCIAL HISTORY: The patient lives with his family. He does not report any smoking, drinking, or intravenous drug use. REVIEW OF SYSTEMS: Other than the above-mentioned, there are no other pertinent positives or pertinent negatives in a complete 14-point review of systems. PHYSICAL EXAMINATION: GENERAL: The patient appears to be a very pleasant gentleman of /[place] descent, appearing stated age, lying in bed comfortably and in no acute distress. BMI is 16.9. VITAL SIGNS: AVSS (see EHR). HEENT: Normocephalic and atraumatic. Extraocular muscles and hearing are grossly intact bilaterally and symmetrically. Sclerae are nonicteric. Oral cavity is clear; oral mucosa appeared to be pink and moist. Dentition: fair to poor. NECK: Supple. There is no lymphadenopathy or JVD. There is no submental, submandibular or supraclavicular lymphadenopathy. CHEST: Rises symmetrically with each breath; patient is breathing comfortably. There are no audible wheezes, rales or rhonchi on the gross exam. HEART: Pulse is regular and palpable on the left wrist. Capillary refill was normal. Carotid pulses are palpable bilaterally and symmetrically in the neck. EXTREMITIES: Lower extremities contain no pitting edema around the ankles bilaterally and symmetrically. ABDOMEN: Soft, nondistended and nontender. His ostomy is pink and viable. There are no fluids, but there is small amount of gas within the ostomy bag. SKIN: Appears to be pink and feels warm to touch. NEUROLOGIC: Awake, alert, and follows commands appropriately. LABORATORY DATA: As above. IMAGIN07/25/16 CT abd/pelvis IMPRESSION: Unchanged pattern and severity of considerable fluid-filled small bowel dilatation compatible with small bowel obstruction. Infiltrative mass of the upper rectum. Mild right lower lobe bronchiolitis, unchanged. Previous admission to [facility] July 19-2016 imaging: Patient had a chest x-ray which demonstrated no active cardiopulmonary changes. He had an abdominal and pelvic CT on 07/18/2016 that demonstrated findings in keeping with small-bowel obstruction likely related to known rectal mass. The view of obstruction had progressed compared to the CT done on 06/07/2016. Partial colonic resection and left lower quadrant colostomy and ileocolic anastomosis was seen. No intra-abdominal loculated fluid collection or pneumoperitoneum was noted. He had aortic iliac atherosclerosis was noted. Mild patchy infiltrates in the right lung base were also noted. Note that I personally reviewed all the available and pertinent images and I agree in general with their overall reported findings. Consultation Date/Type/Reason Admit Date/Time July 25, 2016 at 11:31 Initial Consult Date Exam/Review of Systems Vital Signs Vitals Vital Signs Date Time Temp Pulse Resp B/P Pulse Ox O2 Delivery O2 Flow Rate FiO2 07/26/16 07:53 97.6 56 18 148/68 99 07/25/16 14:31 Room Air Intake and Output 07/25/16 07/25/16 07/26/16 15:00 23:00 07:00 Intake Total 100 ml 900 ml Output Total 1300 ml Balance 100 ml -400 ml Results Result Diagram: 07/26/16 0545 07/26/16 0545 Results 24 hrs Laboratory Tests Test 07/25/16 20:04 07/26/16 05:45 Urine Color LT. YELLOW Urine Clarity CLOUDY H Urine pH 7.5 Urine Specific [place] 1.020 Urine Ketones 15 Urine Nitrite NEGATIVE Urine Bilirubin NEGATIVE Urine Urobilinogen 0.2 E.U./dL Urine Leukocyte Esterase 1+ H Urine Microscopic RBC 5-10 Urine Microscopic WBC 0-2 Urine Bacteria MANY Urine Hemoglobin 3+ H Urine Glucose NEGATIVE Urine Total Protein 1+ H White Blood Count 4.9 # Red Blood Count 4.27 L Hemoglobin 11.2 L Hematocrit 36.8 L Mean Corpuscular Volume 86.2 Mean Corpuscular Hemoglobin 26.2 L Mean Corpuscular Hemoglobin Concent 30.4 L Red Cell Distribution Width 14.6 H Platelet Count 298 Mean Platelet Volume 8.9 Neutrophils % 65.1 Lymphocytes % 21.0 Monocytes % 10.4 Eosinophils % 2.7 Basophils % 0.4 Nucleated Red Blood Cells % 0.0 Neutrophils # 3.2 Lymphocytes # 1.0 Monocytes # 0.5 Eosinophils # 0.1 Basophils # 0.0 Nucleated Red Blood Cells # 0.0 Sodium Level 136 Potassium Level 4.9 Chloride Level 102 Carbon Dioxide Level 30 Anion Gap 9 # Blood Urea Nitrogen 12 Creatinine 0.56 L Glucose Level 98 Calcium Level 9.0 Magnesium Level 2.5 Total Bilirubin 0.1 L Direct Bilirubin 0.00 Indirect Bilirubin 0.1 Aspartate Amino Transf (AST/SGOT) 14 L Alanine Aminotransferase (ALT/SGPT) 23 Alkaline Phosphatase 60 Total Protein 6.5 Albumin 3.6 Globulin 2.90 Albumin/Globulin Ratio 1.24 Medications Medications Current Medications Lorazepam (Ativan) 0.5 mg Q4 PRN IV anxiety Last administered on 07/25/16t 19: 59; Admin Dose 0.5 MG; Start 07/25/16 at 17:30 Ondansetron HCl 4 mg 4 mg Q4H PRN IV NAUSEA AND/OR VOMITING; Start 07/25/16 at 17:30 Potassium Chloride/Dextrose/ Sod Cl (D5-1/2ns + KCl 20 Meq) 1,000 ml @ 100 mls/ hr Q10H IV Last administered on 07/26/16 04:46; Admin Dose 100 MLS/HR; Start 07/25/16 at 17:30 Hydromorphone HCl (Dilaudid) 2 mg Q4H PRN IV severe pain Last administered on 10:30; Admin Dose 2 MG; Start 07/25/16 at 20:30 DIVINE BEY M.D. July 26, 2016 14:11
--- NOTE | 2016-07-26 14:56 | RADRPT ---
PROCEDURE: XR Abdomen. CLINICAL INDICATION: Abdomen pain. TECHNIQUE: AP supine abdomen x-ray. COMPARISON: 07/20/2017. FINDINGS: There is a new nasogastric tube with the tip in the stomach. Dilated small bowel in the midabdomen measures 5.3 cm in diameter. There are no abnormal calcifications overlying the urinary tracts. There are degenerative changes of the spine. IMPRESSION: 1. Nasogastric tube tip in the stomach. 2. Small bowel obstruction, similar to the prior study. RPTAT: QQ .Taz Tolbert MD, MD Date Time Electronically viewed and signed by .Taz Tolbert MD, MD on 07/26/2016 14:55 .R/
[2016-07-26 19:30] VITALS: BP 156/71; RESP 20
[2016-07-26] MEDS ORDERED: MAGNESIUM CITRATE 300 ML BTL PO ONE (20:00)
[2016-07-26] MEDS: AL HYDROX/MG HYDROX/SIMETH 30 ML CUP PO PRN (20:50)
[2016-07-27] MEDS: D5W-0.45 NACL + KCL 20 MEQ 1,000 ML IV SCH ×4 (00:08→20:49)
[2016-07-27] MEDS: HYDROmorphONE 2 MG/ML SYG IV PRN ×5 (02:37→19:01)
[2016-07-27 05:50] LABS: ADD SCAN DIFF NO
[2016-07-27 05:53] LABS: BASOPHILS % 0.4 % (0.0-2.0); EOSINOPHILS # 0.1 10^3/ul (0.0-0.5); EOSINOPHILS % 2.1 % (0.0-7.0); HEMATOCRIT 37.1 % (42.0-52.0); HEMOGLOBIN 11.7 g/dl (14.0-18.0); LYMPHOCYTES # 1.1 10^3/ul (0.8-2.9); LYMPHOCYTES % 18.8 % (15.0-51.0); MEAN CORPUSCULAR HEMOGLOBIN 26.9 pg (29.0-33.0); MEAN CORPUSCULAR HGB CONC 31.5 g/dl (32.0-37.0); MEAN CORPUSCULAR VOLUME 85.3 fl (82.0-101.0); MONOCYTE # 0.5 10^3/ul (0.3-0.9); NEUTROPHIL # 3.9 10^3/ul (1.6-7.5); NEUTROPHILS % 69.3 % (39.0-77.0); PLATELET COUNT 331 10^3/UL (140-415); RED BLOOD COUNT 4.35 10^6/ul (4.70-6.10); RED CELL DISTRIBUTION WIDTH 14.5 % (11.5-14.5); WHITE BLOOD COUNT 5.6 10^3/ul (4.8-10.8)
[2016-07-27 06:28] LABS: POTASSIUM 4.2 mmol/L (3.5-5.1)
[2016-07-27 06:30] LABS: CREATININE 0.54 mg/dl (0.61-1.24)
[2016-07-27 06:31] LABS: CALCIUM 8.7 mg/dl (8.4-10.2); MAGNESIUM 2.7 mg/dl (1.7-2.5)
[2016-07-27] MEDS: PANTOPRAZOLE (EC) 40 MG TAB PO SCH (06:35)
[2016-07-27 07:22] VITALS: BP 108/53; RESP 16
[2016-07-27] MEDS: AL HYDROX/MG HYDROX/SIMETH 30 ML CUP PO PRN (09:07)
--- NOTE | 2016-07-27 13:03 | PN ---
Date/Time of Note Date/Time of Note DATE: 07/27/16 TIME: 12:58 Assessment/Plan Lines/Catheters IV Catheter Type (from [facility]): Peripheral IV Coates in Place (from [facility]): No Assessment/Plan Assessment/Plan [facility] Progress Note Date of Service: 07/27/16 Today's Impression & Plan: Overall stable with partial SBO. Not deteriorated. No indication for acute surgical intervention. With above assessment, I've recommended the following for today: 1. Cont current management 2. Keep in house 3. May have clear liquid diet, but avoid mag citrate and laxatives from above until more signs of bowel activity Thank you again for your great care of this very pleasant patient and wonderful family. If there are any questions, please feel free to call me at [phone]. TOTAL VISIT TIME: 20 minutes of which more than half was spent in [id number] discussion with the patient, possibly including family, as well as coordination of care between multiple physicians and providers. Disclaimer: Inadvertent spelling or grammatical errors are likely due to EHR/ dictation software use and do not reflect on the overall quality of patient care. Updated Clinical Summary: The patient is a very pleasant 65-year-old gentleman with comorbidities including hypertension, who was initially admitted to [facility] through ED on 2015 with signs and symptoms consistent with anemia that eventually was shown to be a large, nearly obstructing mass approximately 12 cm from the anal verge up to the area of the rectosigmoid junction on colonoscopy 06/07/2015. Plan at that time was neoadjuvant treatment with chemoradiation followed by restaging and surgical resection. Patient underwent radiation therapy (Dr. Aranda) that ended September 2015 (patient's recollection was November 2015). Discussions with multiple colleagues revealed evidence that the patient had been not following instructions and there were barriers to get the patient to surgical intervention. At least part of the barriers were due to patient factors alone. Patient reported having contacted my office approximately 5 times to try and make an appointment and was told that we "do not accept" his insurance. Careful review of office records showed no documentation of patient calling. Patient also believed that he had had [employer] as his insurance carrier, but his insurance carrier was [employer] (accepted by our program). Patient re-presented to [facility] through ED with constipation, vomiting, abdominal distension and dilated loops of small intestine on 04/01/16. Significant comorbidities included not insignificant malnutrition with BMI 15.8 and dehydration, albumin of 3.6 in the setting of inability to feed enterically. Small area of liver in segment 6 and two very small areas in segment 4a of questionable significance (too small to tell) benign path vs. metastatic disease. We attempted to treat the bowel obstruction with nonoperative management with the hope that the patient would be able to increase his oral intake and improve his nutritional status prior to potentially getting systemic chemotherapy in the neoadjuvant fashion before surgical intervention. Patient very clearly showed us that his bowels were not able to tolerate any meaningful amount of nutritional intake after a few days of this management and for this reason, and after a multidisciplinary discussion, we decided to change our treatment strategy and take the patient to the operating room. + BM 07/21/16. List of operative interventions on 04/12/16: 1. Laparoscopic exploration converted to open exploration 2. Partial colectomy with removal of upper part of rectum and sigmoid colon ( modifier 22) 3. Resection of the end of terminal ileum along with cecum with primary anastomosis 4. Performance of an colostomy using distal descending colon 5. Extensive lysis of adhesions (at least 60 minutes) 6. Intraoperative ultrasound of the liver 7. Abdominal lavage D/c home 04/23/16. Two visits to ED for constipation 06/07 and 06/11/16. Readmitted after a few ED visits in June and July 2016 though ED to [facility] on 07/19/16 with UTI and perhaps partial SBO. Treated non-operatively successfully with treatment of UTI and resolution of partial SBO; d/c home 07/22/16. Readmitted for similar complaints. Comorbidities: 1. Rectal malignancy, s/p chemotherapy and radiation June to Nov 2015; obstruction end of terminal ileum as well as at the level of the rectosigmoid junction with aggressive locally advanced rectal cancer; S/p an otherwise uncomplicated but challenging resection of both involved portions of rectosigmoid as well as terminal ileum in the setting of aggressive rectal cancer with local invasion of the pelvis on 04/13/16. 2. Hypertension 3. Cachexia; BMI 15.8; albumin of 3.6 in the setting of inability to feed enterically 4. Colonoscopy June 2015 5. Anxiety 6. Multiple visits to ED and admissions to hospital through July 2016 Subjective: No major events or complaints; no major abd pain and under control with medications; + n/+vx1/-d; no sob or cp; - flatus; - BM; + activity Objective: Vitals: See below Exam: GENERAL: On exam, the patient was laying in bed and appeared to be comfortable and in no acute distress. ABDOMEN: Soft, nontender and nondistended. Incisions are clean, dry and intact without any evidence of erythema, edema, discharge, or hernia. Ostomy pink and viable. No sig air or stool in the bag. There are no peritoneal signs or guarding. SKIN: Skin appears to be pink and feels warm to touch. NEUROLOGIC: Patient is awake, alert, and follows commands appropriately. Exam/Review of Systems Vital Signs Vitals Vital Signs Date Time Temp Pulse Resp B/P Pulse Ox O2 Delivery O2 Flow Rate FiO2 07/27/16 19:32 98.3 70 18 109/57 100 07/25/16 14:31 Room Air Intake and Output 07/26/16 07/26/16 07/27/16 15:00 23:00 07:00 Intake Total 1340 ml 930 ml Balance 1340 ml 930 ml Results Result Diagram: 07/27/16 0455 07/27/16 0455 DIVINE BEY M.D. July 27, 2016 13:03
[2016-07-27] MEDS: LORAZEPAM 2 MG INJ IV PRN ×2 (17:53→22:04)
[2016-07-27 19:32] VITALS: BP 109/57; RESP 18
[2016-07-27 21:25] LABS: ADD UMIC YES; URINE BILIRUBIN (Dip) NEGATIVE (NEGATIVE); URINE BLOOD (Dip) 3+ (NEGATIVE); URINE COLOR LT. YELLOW (YELLOW); URINE GLUCOSE (Dip) NEGATIVE (NEGATIVE); URINE KETONES (Dip) NEGATIVE (NEGATIVE); URINE LEUKOCYTE ESTERASE (Dip) 1+ (NEGATIVE); URINE NITRITE (Dip) NEGATIVE (NEGATIVE); URINE TOTAL PROTEIN (Dip) NEGATIVE (NEGATIVE); URINE UROBILINOGEN (Dip) 0.2 E.U./dL (0.1-1.0)
[2016-07-27 21:42] LABS: BACTERIA,URINE MANY; SQUAMOUS EPITHELIAL CELL,UR MODERATE
[2016-07-28] MEDS: HYDROmorphONE 2 MG/ML SYG IV PRN ×5 (02:15→23:49)
[2016-07-28] MEDS: LORAZEPAM 2 MG INJ IV PRN ×3 (04:16→22:01)
[2016-07-28] MEDS: D5W-0.45 NACL + KCL 20 MEQ 1,000 ML IV SCH ×3 (05:30→17:27)
[2016-07-28] MEDS: PANTOPRAZOLE (EC) 40 MG TAB PO SCH (05:48)
[2016-07-28 06:05] LABS: ADD SCAN DIFF NO
[2016-07-28 06:38] LABS: BASOPHILS % 0.4 % (0.0-2.0); EOSINOPHILS # 0.2 10^3/ul (0.0-0.5); EOSINOPHILS % 3.5 % (0.0-7.0); HEMATOCRIT 36.1 % (42.0-52.0); HEMOGLOBIN 11.5 g/dl (14.0-18.0); LYMPHOCYTES # 1.2 10^3/ul (0.8-2.9); LYMPHOCYTES % 22.3 % (15.0-51.0); MEAN CORPUSCULAR HEMOGLOBIN 26.7 pg (29.0-33.0); MEAN CORPUSCULAR HGB CONC 31.9 g/dl (32.0-37.0); MONOCYTE # 0.7 10^3/ul (0.3-0.9); MONOCYTES % 13.2 % (0.0-11.0); NEUTROPHIL # 3.1 10^3/ul (1.6-7.5); NEUTROPHILS % 60.2 % (39.0-77.0); PLATELET COUNT 300 10^3/UL (140-415); RED CELL DISTRIBUTION WIDTH 14.3 % (11.5-14.5); WHITE BLOOD COUNT 5.2 10^3/ul (4.8-10.8)
[2016-07-28 06:43] LABS: POTASSIUM 4.5 mmol/L (3.5-5.1)
[2016-07-28 06:46] LABS: CALCIUM 8.4 mg/dl (8.4-10.2); CREATININE 0.5 mg/dl (0.61-1.24)
[2016-07-28 06:47] LABS: MAGNESIUM 2.4 mg/dl (1.7-2.5)
[2016-07-28 07:52] VITALS: BP 153/71; RESP 18
--- NOTE | 2016-07-28 13:35 | CONS ---
DATE OF ADMISSION: 07/25/2016 DATE OF CONSULTATION: 07/28/2016 REQUESTING PHYSICIAN: Dr. Urena and Dr. Dustin Juárez HISTORY OF PRESENT ILLNESS: This is an unfortunate 65-year-old male who was diagnosed with stage IV rectal cancer, underwent palliative surgical intervention in April of 2016, and he did undergo r adiation prior to that, however, he never got to where he could get his chemotherapy and he is due t o his chemotherapy. However, he has been having problems with recurrent bowel obstruction and that has been causing to delay the chemotherapy. The patient states that he sees, probably like small bl ood clots in the urine, some tissue or sediment, and on the CT scan of the abdomen and pelvis that ligia chambers had on this admission it showed that there is a marked irregularity of the posterior bladder wall, suggesting invasion by the tumor. Therefore, a urological consultation was requested. The patient , prior to his admission, denies having any urinary problems. He usually has nocturia 4 to 5 times. During the day, he voids every 2 to 3 hours. There is mild initial dysuria, no history of gross h ematuria. He has good urinary stream. Sometimes, he feels that he does not empty his bladder well and he does have some postvoid dribbling. HE DENIES ANY DRUG ALLERGIES. PAST MEDICAL HISTORY: In addition to the present problems, he has had a history of hypertension and has been on medications for that. ALLERGIES: THE PATIENT HAS NO KNOWN DRUG ALLERGIES. SOCIAL HISTORY: He does not smoke, does not drink any alcohol. FAMILY HISTORY: Positive for diabetes in his father. MEDICATIONS: The medications that he is on presently include: 1. Protonix. 2. Dilaudid for the pain. 3. Ativan. 4. Zofran. 5. Potassium chloride. 6. In addition to the IV fluids. PHYSICAL EXAMINATION: GENERAL: Reveals a 65-year-old male. He weighs 56.6 kilograms. He is 72 inches tall. VITAL SIGNS: The temperature is 98.6, pulse is 74, respiration is 18, blood pressure 153/71. HEAD AND NECK: Unremarkable. ABDOMEN: Soft. He does have a colostomy in the left side of the abdomen and there is a scar from p rior surgery. No abdominal mass could be palpated. GENITALIA: External genitalia are normal. RECTAL: Tried to do a rectal exam. The rectum is very tight and one cannot pass any finger through that. EXTREMITIES: Reveal no edema. LABORATORY DATA: His urinalysis on the day of admission and again yesterday showed many bacteria in it and 10 to 25 RBCs and 1+ leukocyte esterase; however, the urine culture on admission was negativ e after 48 hours. Urine culture from yesterday is no growth after 24 hours. The BUN is 10, creatin ine 0.50, sodium 135, potassium 4.5, chloride is 104, CO2 of 29. The CT scan of the abdomen and pel vis again shows considerable fluid-filled small-bowel dilatation compatible with small-bowel obstruc tion, infiltrative mass of the upper rectum, and that is the mass probably that may be invading into the bladder and there is mild right lower lobe bronchiolitis that is unchanged. IMPRESSION: The patient does have a tumor in the pelvis, infiltrative tumor, and that may be invadi ng into the posterior wall of the bladder and that may be what he sees in the urine and there be a l ittle bleeding sometimes or it could be even a fistula. From a urological point, it is basically mo re diagnostic than anything else to find out if there is any invasion, but treatment-osman he still w ill need to undergo his chemotherapy and see if that would help him out. I will watch him for the n ext couple of days and, if there is a need to do the cystoscopy, will go ahead and do it while he is in the hospital. Thank you for allowing me to help in his care. Dictated By: TATIANA GREENBERG/KEVIN Conf#: [id number] DID#: [id number]
--- NOTE | 2016-07-28 14:15 | PN ---
Date/Time of Note Date/Time of Note DATE: 07/28/16 TIME: 14:12 Assessment/Plan Lines/Catheters IV Catheter Type (from [facility]): Peripheral IV Coates in Place (from [facility]): No Assessment/Plan Assessment/Plan [facility] Progress Note Date of Service: 07/28/16 Today's Impression & Plan: Overall stable with partial SBO. Not deteriorated. No indication for acute surgical intervention. Very difficult clinical situation since he has stage IV rectal cancer and already had a palliative bypass. Any surgical intervention will delay potential life-prolonging chemotherapy and should be avoided if possible. No good surgical options overall. Appreciate Dr. Marks's input in the care. With above assessment, I've recommended the following for today: 1. Cont current management 2. Keep in house 3. May have clear liquid diet, but avoid mag citrate and laxatives from above until more signs of bowel activity 4. May need to do small bowel follow through if no improvement in the next 2 days Thank you again for your great care of this very pleasant patient and wonderful family. If there are any questions, please feel free to call me at [phone]. TOTAL VISIT TIME: 20 minutes of which more than half was spent in [id number] discussion with the patient, possibly including family, as well as coordination of care between multiple physicians and providers. Disclaimer: Inadvertent spelling or grammatical errors are likely due to EHR/ dictation software use and do not reflect on the overall quality of patient care. Updated Clinical Summary: The patient is a very pleasant 65-year-old gentleman with comorbidities including hypertension, who was initially admitted to [facility] through ED on 2015 with signs and symptoms consistent with anemia that eventually was shown to be a large, nearly obstructing mass approximately 12 cm from the anal verge up to the area of the rectosigmoid junction on colonoscopy 06/07/2015. Plan at that time was neoadjuvant treatment with chemoradiation followed by restaging and surgical resection. Patient underwent radiation therapy (Dr. Aranda) that ended September 2015 (patient's recollection was November 2015). Discussions with multiple colleagues revealed evidence that the patient had been not following instructions and there were barriers to get the patient to surgical intervention. At least part of the barriers were due to patient factors alone. Patient reported having contacted my office approximately 5 times to try and make an appointment and was told that we "do not accept" his insurance. Careful review of office records showed no documentation of patient calling. Patient also believed that he had had [employer] as his insurance carrier, but his insurance carrier was [employer] (accepted by our program). Patient re-presented to [facility] through ED with constipation, vomiting, abdominal distension and dilated loops of small intestine on 04/01/16. Significant comorbidities included not insignificant malnutrition with BMI 15.8 and dehydration, albumin of 3.6 in the setting of inability to feed enterically. Small area of liver in segment 6 and two very small areas in segment 4a of questionable significance (too small to tell) benign path vs. metastatic disease. We attempted to treat the bowel obstruction with nonoperative management with the hope that the patient would be able to increase his oral intake and improve his nutritional status prior to potentially getting systemic chemotherapy in the neoadjuvant fashion before surgical intervention. Patient very clearly showed us that his bowels were not able to tolerate any meaningful amount of nutritional intake after a few days of this management and for this reason, and after a multidisciplinary discussion, we decided to change our treatment strategy and take the patient to the operating room. + BM 07/21/16. List of operative interventions on 04/12/16: 1. Laparoscopic exploration converted to open exploration 2. Partial colectomy with removal of upper part of rectum and sigmoid colon ( modifier 22) 3. Resection of the end of terminal ileum along with cecum with primary anastomosis 4. Performance of an colostomy using distal descending colon 5. Extensive lysis of adhesions (at least 60 minutes) 6. Intraoperative ultrasound of the liver 7. Abdominal lavage D/c home 04/23/16. Two visits to ED for constipation 06/07 and 06/11/16. Readmitted after a few ED visits in June and July 2016 though ED to [facility] on 07/19/16 with UTI and perhaps partial SBO. Treated non-operatively successfully with treatment of UTI and resolution of partial SBO; d/c home 07/22/16. Readmitted for similar complaints. Comorbidities: 1. Rectal malignancy, s/p chemotherapy and radiation June to Nov 2015; obstruction end of terminal ileum as well as at the level of the rectosigmoid junction with aggressive locally advanced rectal cancer; S/p an otherwise uncomplicated but challenging resection of both involved portions of rectosigmoid as well as terminal ileum in the setting of aggressive rectal cancer with local invasion of the pelvis on 04/13/16. 2. Hypertension 3. Cachexia; BMI 15.8; albumin of 3.6 in the setting of inability to feed enterically 4. Colonoscopy June 2015 5. Anxiety 6. Multiple visits to ED and admissions to hospital through July 2016 Subjective: No major events or complaints; no major abd pain and under control with medications; + n/-v/-d; no sob or cp; - flatus; - BM; + activity Objective: Vitals: See below Exam: GENERAL: On exam, the patient was laying in bed and appeared to be comfortable and in no acute distress. ABDOMEN: Soft, nontender and nondistended. Incisions are clean, dry and intact without any evidence of erythema, edema, discharge, or hernia. Ostomy pink and viable. No sig air or stool in the bag. There are no peritoneal signs or guarding. SKIN: Skin appears to be pink and feels warm to touch. NEUROLOGIC: Patient is awake, alert, and follows commands appropriately. Exam/Review of Systems Vital Signs Vitals Vital Signs Date Time Temp Pulse Resp B/P Pulse Ox O2 Delivery O2 Flow Rate FiO2 07/28/16 07:52 98.6 74 18 153/71 99 07/25/16 14:31 Room Air Intake and Output 07/27/16 07/27/16 07/28/16 15:00 23:00 07:00 Intake Total 550 ml 1920 ml 1280 ml Output Total 350 ml Balance 550 ml 1570 ml 1280 ml Results Result Diagram: 07/28/16 0555 07/28/16 0555 DIVINE BEY M.D. July 28, 2016 14:15
[2016-07-28 20:05] VITALS: BP 109/57; RESP 18
[2016-07-29] MEDS: D5W-0.45 NACL + KCL 20 MEQ 1,000 ML IV SCH ×5 (01:30→22:13)
[2016-07-29] MEDS: LORAZEPAM 2 MG INJ IV PRN ×4 (02:10→16:11)
[2016-07-29] MEDS: HYDROmorphONE 2 MG/ML SYG IV PRN ×5 (03:57→22:13)
[2016-07-29] MEDS: PANTOPRAZOLE (EC) 40 MG TAB PO SCH (05:53)
[2016-07-29 07:21] VITALS: BP 111/57; RESP 18
--- NOTE | 2016-07-29 15:11 | CONS ---
Date/Time of Note Date/Time of Note DATE: 07/29/16 TIME: 15:11 Assessment/Plan Assessment/Plan Chief Complaint/Hosp Course Status post partial colectomy, excision of probable upper part of the rectum, sigmoid colon for rectal cancer 3 months ago. Resolving partial small-bowel obstruction. History of hypertension. History of nephrolithiasis. Mild hyponatremia. cont medical treatment hopefully chemo LAILA Problems: Consultation Date/Type/Reason Admit Date/Time July 25, 2016 at 11:31 24 HR Interval Summary Free Text/Dictation + N The patient has occasional nausea, abdominal pain on and off, voiding well and ambulating well. Exam/Review of Systems Vital Signs Vitals Vital Signs Date Time Temp Pulse Resp B/P Pulse Ox O2 Delivery O2 Flow Rate FiO2 07/29/16 07:21 98.5 70 18 111/57 99 07/25/16 14:31 Room Air Intake and Output 07/28/16 07/28/16 07/29/16 15:00 23:00 07:00 Intake Total 200 ml 2060 ml 1320 ml Output Total 300 ml Balance 200 ml 1760 ml 1320 ml Exam HEENT: Head normocephalic. LUNGS: Clinically clear. HEART: S1, S2 heard, no definite gallops. ABDOMEN: Not distended, nontender. Bowel sounds hypoactive. No guarding noted so far. Colostomy. EXTREMITIES: Trace edema. Homans sign is negative. NEUROLOGIC: No localizing or lateralizing signs. Results Result Diagram: 07/28/16 0555 07/28/16 0555 Medications Medications Current Medications Lorazepam (Ativan) 0.5 mg Q4 PRN IV anxiety Last administered on 07/29/16 11: 25; Admin Dose 0.5 MG; Start 07/25/16 at 17:30 Ondansetron HCl 4 mg 4 mg Q4H PRN IV NAUSEA AND/OR VOMITING; Start 07/25/16 at 17:30 Potassium Chloride/Dextrose/ Sod Cl (D5-1/2ns + KCl 20 Meq) 1,000 ml @ 100 mls/ hr Q10H IV Last administered on 07/29/16 14:35; Admin Dose 100 MLS/HR; Start 07/25/16 at 17:30 Hydromorphone HCl (Dilaudid) 2 mg Q4H PRN IV severe pain Last administered on 13:08; Admin Dose 2 MG; Start 07/25/16 at 20:30 Al Hydrox/Mg Hydrox/Simethicone (Mag-Al Plus) 30 ml TID PRN PO GASTROINTESTINAL UPSET Last administered on 07/27/16 09:07; Admin Dose 30 ML; Start 07/26/16 at 20:00 Pantoprazole (Protonix Tab) 40 mg DAILY@06 PO Last administered on 07/29/16 05 :53; Admin Dose 40 MG; Start 07/27/16 at 06:00 JASMINA PALOMARES MD July 29, 2016 15:11
--- NOTE | 2016-07-29 15:11 | CONS ---
Date/Time of Note Date/Time of Note DATE: 07/28/16 TIME: 15:11 VK LE Assessment/Plan Assessment/Plan Chief Complaint/Hosp Course Status post partial colectomy, excision of probable upper part of the rectum, sigmoid colon for rectal cancer 3 months ago. partial small-bowel obstruction. History of hypertension. History of nephrolithiasis. Mild hyponatremia. cont medical treatment hopefully chemo LAILA Problems: Consultation Date/Type/Reason Admit Date/Time July 25, 2016 at 11:31 Initial Consult Date 24 HR Interval Summary Free Text/Dictation + N NO NEW EVENTS Exam/Review of Systems Vital Signs Vitals Vital Signs Date Time Temp Pulse Resp B/P Pulse Ox O2 Delivery O2 Flow Rate FiO2 07/29/16 07:21 98.5 70 18 111/57 99 07/25/16 14:31 Room Air Intake and Output 07/28/16 07/28/16 07/29/16 15:00 23:00 07:00 Intake Total 200 ml 2060 ml 1320 ml Output Total 300 ml Balance 200 ml 1760 ml 1320 ml Exam GENERAL: The patient is an average-built male who appears pale, in moderate distress. HEENT: Head normocephalic. No mild pallor without cyanosis. Chest clinically clear. HEART: S1, S2 with no definite gallops. ABDOMEN: Soft. Bowel sounds hypoactive. Mild diffuse tenderness without rebound. EXTREMITIES: No edema. Homans sign is negative. NEUROLOGIC: No localizing or lateralizing signs. Results Result Diagram: 07/28/16 0555 07/28/16 0555 Medications Medications Current Medications Lorazepam (Ativan) 0.5 mg Q4 PRN IV anxiety Last administered on 07/29/16 11: 25; Admin Dose 0.5 MG; Start 07/25/16 at 17:30 Ondansetron HCl 4 mg 4 mg Q4H PRN IV NAUSEA AND/OR VOMITING; Start 07/25/16 at 17:30 Potassium Chloride/Dextrose/ Sod Cl (D5-1/2ns + KCl 20 Meq) 1,000 ml @ 100 mls/ hr Q10H IV Last administered on 07/29/16 14:35; Admin Dose 100 MLS/HR; Start 07/25/16 at 17:30 Hydromorphone HCl (Dilaudid) 2 mg Q4H PRN IV severe pain Last administered on 13:08; Admin Dose 2 MG; Start 07/25/16 at 20:30 Al Hydrox/Mg Hydrox/Simethicone (Mag-Al Plus) 30 ml TID PRN PO GASTROINTESTINAL UPSET Last administered on 07/27/16 09:07; Admin Dose 30 ML; Start 07/26/16 at 20:00 Pantoprazole (Protonix Tab) 40 mg DAILY@06 PO Last administered on 07/29/16 05 :53; Admin Dose 40 MG; Start 07/27/16 at 06:00 JASMINA PALOMARES MD July 29, 2016 15:11
--- NOTE | 2016-07-29 16:42 | PN ---
DATE: 07/29/2016 SUBJECTIVE: The patient has occasional nausea, abdominal pain on and off, voiding well and ambulati ng well. VITAL SIGNS: Temperature 98.5, blood pressure 111/57, O2 saturation 98% on room air. HEENT: Head normocephalic. LUNGS: Clinically clear. HEART: S1, S2 heard, no definite gallops. ABDOMEN: Not distended, nontender. Bowel sounds hypoactive. No guarding noted so far. Colostomy. EXTREMITIES: Trace edema. Homans sign is negative. NEUROLOGIC: No localizing or lateralizing signs. LABORATORY DATA: Urine culture repeat is negative. Dr. Marks's recommendations greatly appreciated. IMPRESSION: 1. Recurrent partial small-bowel obstruction, status post prior surgery with colostomy and partial colectomy and removal of upper portion of the rectum, sigmoid colon and status post resection of ter [place] ileum for rectal cancer. 2. Hypertension, well compensated. 3. History of nephrolithiasis. 4. Possibility of the tumor not ruled out. PLAN: We will continue bowel rest, IV fluids. Recheck labs in a.m. Consider small bowel follow th rough study tomorrow morning. Dictated By: JM HARRIS MD, SR/NTS Conf#: [id number] DID#: [id number]
[2016-07-29 20:18] VITALS: BP 134/66; RESP 18
[2016-07-30] MEDS: LORAZEPAM 2 MG INJ IV PRN ×5 (00:42→19:55)
[2016-07-30] MEDS: HYDROmorphONE 2 MG/ML SYG IV PRN ×4 (02:16→17:31)
[2016-07-30] MEDS: PANTOPRAZOLE (EC) 40 MG TAB PO SCH (05:07)
[2016-07-30 05:31] LABS: ADD SCAN DIFF NO
[2016-07-30 05:40] LABS: BASOPHILS % 0.4 % (0.0-2.0); EOSINOPHILS # 0.1 10^3/ul (0.0-0.5); EOSINOPHILS % 1.6 % (0.0-7.0); HEMATOCRIT 32.4 % (42.0-52.0); HEMOGLOBIN 10.2 g/dl (14.0-18.0); LYMPHOCYTES # 0.8 10^3/ul (0.8-2.9); LYMPHOCYTES % 16.5 % (15.0-51.0); MEAN CORPUSCULAR HEMOGLOBIN 26.5 pg (29.0-33.0); MEAN CORPUSCULAR HGB CONC 31.5 g/dl (32.0-37.0); MEAN CORPUSCULAR VOLUME 84.2 fl (82.0-101.0); MEAN PLATELET VOLUME 9.2 fl (7.4-10.4); MONOCYTE # 0.6 10^3/ul (0.3-0.9); NEUTROPHIL # 3.3 10^3/ul (1.6-7.5); NEUTROPHILS % 68.1 % (39.0-77.0); PLATELET COUNT 273 10^3/UL (140-415); RED BLOOD COUNT 3.85 10^6/ul (4.70-6.10); WHITE BLOOD COUNT 4.9 10^3/ul (4.8-10.8)
[2016-07-30 05:54] LABS: CALCIUM 8.5 mg/dl (8.4-10.2); CREATININE 0.59 mg/dl (0.61-1.24); POTASSIUM 4.7 mmol/L (3.5-5.1)
[2016-07-30 07:43] VITALS: BP 132/63; RESP 18
--- NOTE | 2016-07-30 08:10 | PN ---
DATE: 07/27/2016 SUBJECTIVE: The patient has severe hiccups, complaints of abdominal discomfort. No results so far with magnesium citrate. States she passed urinalysis cloudy with ____ blood. VITAL SIGNS: Temperature 98.2, blood pressure 108/53, O2 saturation 90 %. HEENT: Mild pallor without cyanosis. The patient ambulating well. CHEST: Clear. ABDOMEN: Soft, bowel sounds hypoactive. Nondistended. EXTREMITIES: No edema. LABORATORY DATA: Sodium 134, potassium 4.2, BUN 10, creatinine 0.54, magnesium 2.7. WBC count was 5.6, hematocrit 37.1, platelet count of 331,000. Urine cultures negative after 28 hours. IMPRESSION: 1. Partial small-bowel obstruction, recurrent, status post colostomy and partial colectomy and michelle marquita of the upper part of the rectum, sigmoid colon, and posterior resection of terminal ileum 2 vielka hs ago. 2. History of hypertension. 3. Urinary tract infection. 4. History of nephrolithiasis. Dr. Juárez's surgical consultation and recommendations are greatly appreciated. Per his recommendat ion, will request urology consultation with Dr. Marks and will also request an ID consultation. Douglas guevara present management. The patient is quite anxious. Give Ativan for alleviation of anxiety. Dictated By: JM HARRIS MD, SR/KEVIN Conf#: [id number] DID#: [id number]
[2016-07-30] MEDS: D5W-0.45 NACL + KCL 20 MEQ 1,000 ML IV SCH (09:10)
--- NOTE | 2016-07-30 13:13 | PN ---
Date/Time of Note Date/Time of Note DATE: 07/30/16 TIME: 13:07 Assessment/Plan Lines/Catheters IV Catheter Type (from [facility]): Peripheral IV Coates in Place (from [facility]): No Assessment/Plan Assessment/Plan [facility] Progress Note Date of Service: 07/30/16 Today's Impression & Plan: Overall stable with partial SBO seemingly resolving (+ bowel activity with both flatus and stool in the bag). No indication for acute surgical intervention. Regardless of improvement, remains a difficult clinical situation since he has stage IV rectal cancer and already had a palliative bypass. Any surgical intervention will delay potential life-prolonging chemotherapy and should be avoided if possible. Hoping to get to chemo LAILA. With above assessment, I've recommended the following for today: 1. Gastrografin small bowel follow through 2. Advance diet to full liquids 3. D/c planning with quick outpatient start of chemo 4. May need to be prepared for more episodes of partial SBO, which may require NPO status and TPN as a bridge while undergoing systemic chemo. Not a candidate for revisional surgery and would do poorly with emergency operation for bowel obstruction Thank you again for your great care of this very pleasant patient and wonderful family. If there are any questions, please feel free to call me at [phone]. TOTAL VISIT TIME: 20 minutes of which more than half was spent in [id number] discussion with the patient, possibly including family, as well as coordination of care between multiple physicians and providers. Disclaimer: Inadvertent spelling or grammatical errors are likely due to EHR/ dictation software use and do not reflect on the overall quality of patient care. Updated Clinical Summary: The patient is a very pleasant 65-year-old gentleman with comorbidities including hypertension, who was initially admitted to [facility] through ED on 2015 with signs and symptoms consistent with anemia that eventually was shown to be a large, nearly obstructing mass approximately 12 cm from the anal verge up to the area of the rectosigmoid junction on colonoscopy 06/07/2015. Plan at that time was neoadjuvant treatment with chemoradiation followed by restaging and surgical resection. Patient underwent radiation therapy (Dr. Aranda) that ended September 2015 (patient's recollection was November 2015). Discussions with multiple colleagues revealed evidence that the patient had been not following instructions and there were barriers to get the patient to surgical intervention. At least part of the barriers were due to patient factors alone. Patient reported having contacted my office approximately 5 times to try and make an appointment and was told that we "do not accept" his insurance. Careful review of office records showed no documentation of patient calling. Patient also believed that he had had [employer] as his insurance carrier, but his insurance carrier was [employer] (accepted by our program). Patient re-presented to [facility] through ED with constipation, vomiting, abdominal distension and dilated loops of small intestine on 04/01/16. Significant comorbidities included not insignificant malnutrition with BMI 15.8 and dehydration, albumin of 3.6 in the setting of inability to feed enterically. Small area of liver in segment 6 and two very small areas in segment 4a of questionable significance (too small to tell) benign path vs. metastatic disease. We attempted to treat the bowel obstruction with nonoperative management with the hope that the patient would be able to increase his oral intake and improve his nutritional status prior to potentially getting systemic chemotherapy in the neoadjuvant fashion before surgical intervention. Patient very clearly showed us that his bowels were not able to tolerate any meaningful amount of nutritional intake after a few days of this management and for this reason, and after a multidisciplinary discussion, we decided to change our treatment strategy and take the patient to the operating room. + BM 07/21/16. List of operative interventions on 04/12/16: 1. Laparoscopic exploration converted to open exploration 2. Partial colectomy with removal of upper part of rectum and sigmoid colon ( modifier 22) 3. Resection of the end of terminal ileum along with cecum with primary anastomosis 4. Performance of an colostomy using distal descending colon 5. Extensive lysis of adhesions (at least 60 minutes) 6. Intraoperative ultrasound of the liver 7. Abdominal lavage D/c home 04/23/16. Two visits to ED for constipation 06/07 and 06/11/16. Readmitted after a few ED visits in June and July 2016 though ED to [facility] on 07/19/16 with UTI and perhaps partial SBO. Treated non-operatively successfully with treatment of UTI and resolution of partial SBO; d/c home 07/22/16. Readmitted for similar complaints. Kept on bowel rest and started having bowel activity 07/30/16. Comorbidities: 1. Rectal malignancy, s/p chemotherapy and radiation June to Nov 2015; obstruction end of terminal ileum as well as at the level of the rectosigmoid junction with aggressive locally advanced rectal cancer; S/p an otherwise uncomplicated but challenging resection of both involved portions of rectosigmoid as well as terminal ileum in the setting of aggressive rectal cancer with local invasion of the pelvis on 04/13/16. 2. Hypertension 3. Cachexia; BMI 15.8; albumin of 3.6 in the setting of inability to feed enterically 4. Colonoscopy June 2015 5. Anxiety 6. Multiple visits to ED and admissions to hospital through July 2016 Subjective: No major events or complaints; no major abd pain and under control with medications; -n/-v/-d; no sob or cp; + flatus; + BM; + activity Objective: Vitals: See below Exam: GENERAL: On exam, the patient was laying in bed and appeared to be comfortable and in no acute distress. ABDOMEN: Soft, nontender and nondistended. Incisions are clean, dry and intact without any evidence of erythema, edema, discharge, or hernia. Ostomy pink and viable. No sig air, but presence of stool in the bag (patient reported that he just emptied the bag prior to my arrival). There are no peritoneal signs or guarding. SKIN: Skin appears to be pink and feels warm to touch. NEUROLOGIC: Patient is awake, alert, and follows commands appropriately. Exam/Review of Systems Vital Signs Vitals Vital Signs Date Time Temp Pulse Resp B/P Pulse Ox O2 Delivery O2 Flow Rate FiO2 07/30/16 07:43 98.7 75 18 132/63 99 Intake and Output 07/29/16 07/29/16 07/30/16 15:00 23:00 07:00 Intake Total 2440 ml 700 ml Balance 2440 ml 700 ml Results Result Diagram: 07/30/16 0457 07/30/16 0457 DIVINE BEY M.D. July 30, 2016 13:13
--- NOTE | 2016-07-30 14:08 | PN ---
DATE: 07/30/2016 SUBJECTIVE: The patient complains of mild abdominal discomfort, no nausea or vomiting. He did have some ____ colostomy bag with stool. No fever or chills, no dysuria. PHYSICAL EXAMINATION GENERAL: The patient is awake, alert. VITAL SIGNS: Temperature 98.7, blood pressure 132/60, O2 sats 99% on room air. HEENT: Head normocephalic. No pallor, cyanosis, or icterus. LUNGS: Clinically clear. ABDOMEN: Soft, bowel sounds are hypoactive. EXTREMITIES: Trace edema. Homans sign is negative. NEUROLOGIC: No localizing or lateralizing signs. LABORATORY DATA: WBC count 4.9, hematocrit 32.4. Sodium 129, potassium 4.7, BUN 11, creatinine 0.5 9, magnesium 2.0. IMPRESSION: 1. Resolving partial small-bowel obstruction. 2. Status post partial colectomy, excision of probable upper part of the rectum, sigmoid colon for rectal cancer 3 months ago. 3. History of hypertension. 4. History of nephrolithiasis. 5. Mild hyponatremia. PLAN: Will continue recommendations per Dr. Juárez including obtaining a Gastrografin study. Dr. Wendy lopez's oncology consultation much appreciated. Will change the IV to normal saline. Recheck khris walters in a.m. and will initiate discharge planning. Dictated By: JM HARRIS MD, SR/NTS Conf#: [id number] DID#: [id number]
[2016-07-30] MEDS: SOD CHLORIDE 0.45% 1,000 ML IV SCH (14:41)
[2016-07-30] MEDS ORDERED: DIATR MEGLU/DIATRIZOATE SODIUM 120 ML BTL ONE ×2 (15:18)
[2016-07-30 19:28] VITALS: BP 147/64; RESP 18
--- NOTE | 2016-07-30 22:49 | CONS ---
Date/Time of Note Date/Time of Note DATE: 07/30/16 TIME: 22:44 Assessment/Plan Assessment/Plan Chief Complaint/Hosp Course Status post partial colectomy, excision of probable upper part of the rectum, sigmoid colon for rectal cancer 3 months ago. Resolving partial small-bowel obstruction. History of hypertension. History of nephrolithiasis. Mild hyponatremia. cont medical treatment hopefully chemo LAILA Problems: Consultation Date/Type/Reason Admit Date/Time July 25, 2016 at 11:31 24 HR Interval Summary Free Text/Dictation Overall stable with partial SBO resolving (+ bowel activity with both flatus and stool in the bag). No indication for acute surgical intervention. pt need potential life-prolonging chemotherapy needs chemo LAILA. Exam/Review of Systems Vital Signs Vitals Vital Signs Date Time Temp Pulse Resp B/P Pulse Ox O2 Delivery O2 Flow Rate FiO2 07/30/16 19:28 97.9 81 18 147/64 97 Intake and Output 07/29/16 07/29/16 07/30/16 14:59 22:59 06:59 Intake Total 2440 ml 700 ml Balance 2440 ml 700 ml Exam GENERAL: The patient is an average-built male who appears pale, in moderate distress. HEENT: Head normocephalic. No mild pallor without cyanosis. Chest clinically clear. HEART: S1, S2 with no definite gallops. ABDOMEN: Soft. Bowel sounds hypoactive. Mild diffuse tenderness without rebound. EXTREMITIES: No edema. Homans sign is negative. NEUROLOGIC: No localizing or lateralizing signs. Results Result Diagram: 07/30/16 0457 07/30/16 0457 Results 24 hrs Laboratory Tests Test 07/30/16 04:57 White Blood Count 4.9 Red Blood Count 3.85 L Hemoglobin 10.2 L Hematocrit 32.4 L Mean Corpuscular Volume 84.2 Mean Corpuscular Hemoglobin 26.5 L Mean Corpuscular Hemoglobin Concent 31.5 L Red Cell Distribution Width 14.0 Platelet Count 273 Mean Platelet Volume 9.2 Neutrophils % 68.1 Lymphocytes % 16.5 Monocytes % 13.0 H Eosinophils % 1.6 Basophils % 0.4 Nucleated Red Blood Cells % 0.0 Neutrophils # 3.3 Lymphocytes # 0.8 Monocytes # 0.6 Eosinophils # 0.1 Basophils # 0.0 Nucleated Red Blood Cells # 0.0 Sodium Level 129 L Potassium Level 4.7 Chloride Level 100 Carbon Dioxide Level 29 Anion Gap 5 L Blood Urea Nitrogen 11 Creatinine 0.59 L Glucose Level 96 Calcium Level 8.5 Magnesium Level 2.0 Medications Medications Current Medications Lorazepam (Ativan) 0.5 mg Q4 PRN IV anxiety Last administered on 07/30/16 19: 55; Admin Dose 0.5 MG; Start 07/25/16 at 17:30 Ondansetron HCl (Zofran Inj) 4 mg Q4H PRN IV NAUSEA AND/OR VOMITING; Start at 17:30 Hydromorphone HCl (Dilaudid) 2 mg Q4H PRN IV severe pain Last administered on 17:31; Admin Dose 2 MG; Start 07/25/16 at 20:30 Al Hydrox/Mg Hydrox/Simethicone (Mag-Al Plus) 30 ml TID PRN PO GASTROINTESTINAL UPSET Last administered on 07/27/16 09:07; Admin Dose 30 ML; Start 07/26/16 at 20:00 Pantoprazole 40 mg 40 mg DAILY@06 PO Last administered on 07/30/16 05:07; Admin Dose 40 MG; Start 07/27/16 at 06:00 Sodium Chloride (1/2 NS) 1,000 ml @ 75 mls/hr [id number] IV Last administered on 07/30/16 14:41; Admin Dose 75 MLS/HR; Start 07/30/16 at 13:30 JASMINA PALOMARES MD July 30, 2016 22:49
[2016-07-31] MEDS: HYDROmorphONE 2 MG/ML SYG IV PRN ×5 (00:07→19:29)
[2016-07-31] MEDS: LORAZEPAM 2 MG INJ IV PRN ×3 (01:14→12:09)
[2016-07-31] MEDS: SOD CHLORIDE 0.45% 1,000 ML IV SCH ×2 (02:14→14:31)
[2016-07-31 05:37] LABS: ADD SCAN DIFF NO
[2016-07-31] MEDS: AL HYDROX/MG HYDROX/SIMETH 30 ML CUP PO PRN ×2 (05:37→23:34)
[2016-07-31 05:48] LABS: BASOPHILS % 0.3 % (0.0-2.0); EOSINOPHILS # 0.1 10^3/ul (0.0-0.5); HEMATOCRIT 37.6 % (42.0-52.0); HEMOGLOBIN 11.8 g/dl (14.0-18.0); LYMPHOCYTES # 1.3 10^3/ul (0.8-2.9); LYMPHOCYTES % 21.8 % (15.0-51.0); MEAN CORPUSCULAR HEMOGLOBIN 26.1 pg (29.0-33.0); MEAN CORPUSCULAR HGB CONC 31.4 g/dl (32.0-37.0); MEAN CORPUSCULAR VOLUME 83.2 fl (82.0-101.0); MEAN PLATELET VOLUME 8.9 fl (7.4-10.4); MONOCYTE # 0.4 10^3/ul (0.3-0.9); MONOCYTES % 6.8 % (0.0-11.0); NEUTROPHIL # 4.1 10^3/ul (1.6-7.5); NEUTROPHILS % 69.6 % (39.0-77.0); PLATELET COUNT 334 10^3/UL (140-415); RED BLOOD COUNT 4.52 10^6/ul (4.70-6.10); RED CELL DISTRIBUTION WIDTH 14.1 % (11.5-14.5); WHITE BLOOD COUNT 5.9 10^3/ul (4.8-10.8)
[2016-07-31 06:09] LABS: POTASSIUM 5.2 mmol/L (3.5-5.1)
[2016-07-31] MEDS: PANTOPRAZOLE (EC) 40 MG TAB PO SCH (06:09)
[2016-07-31 06:11] LABS: CREATININE 0.62 mg/dl (0.61-1.24)
[2016-07-31 06:12] LABS: CALCIUM 9.2 mg/dl (8.4-10.2)
[2016-07-31 07:40] VITALS: BP 116/60; RESP 16
[2016-07-31] MEDS ORDERED: LORAZEPAM 0.5 MG TAB PO PRN (10:30)
--- NOTE | 2016-07-31 10:30 | PN ---
Date/Time of Note Date/Time of Note DATE: 07/31/16 TIME: 10:25 Assessment/Plan Lines/Catheters IV Catheter Type (from Nrs): Peripheral IV Coates in Place (from Nrs): No Assessment/Plan Assessment/Plan [facility] Progress Note Date of Service: 07/31/16 Today's Impression & Plan: Overall stable and appears improved with seemingly resolving partial SBO. Awaiting official report of the SBFT, but my read of the films indicate contrast reaching the ostomy bag in acceptable time, and the patient's report of having ongoing BM's and no abdominal issues supports this impression. No indication for acute surgical intervention. With above assessment, I've recommended the following for today: 1. Cont full liquid diet 2. Verify report of the SBFT and if no other contraindications medically, d/c home today or tomorrow with quick outpatient start of chemo 3. May need to be prepared for more episodes of partial SBO, which may require NPO status and TPN as a bridge while undergoing systemic chemo. Not a candidate for revision surgery and would do poorly with emergency operation for bowel obstruction Thank you again for your great care of this very pleasant patient and wonderful family. If there are any questions, please feel free to call me at [phone]. TOTAL VISIT TIME: 20 minutes of which more than half was spent in [id number] discussion with the patient, possibly including family, as well as coordination of care between multiple physicians and providers. Disclaimer: Inadvertent spelling or grammatical errors are likely due to EHR/ dictation software use and do not reflect on the overall quality of patient care. Updated Clinical Summary: The patient is a very pleasant 65-year-old gentleman with comorbidities including hypertension, who was initially admitted to [facility] through ED on 2015 with signs and symptoms consistent with anemia that eventually was shown to be a large, nearly obstructing mass approximately 12 cm from the anal verge up to the area of the rectosigmoid junction on colonoscopy 06/07/2015. Plan at that time was neoadjuvant treatment with chemoradiation followed by restaging and surgical resection. Patient underwent radiation therapy (Dr. Aranda) that ended September 2015 (patient's recollection was November 2015). Discussions with multiple colleagues revealed evidence that the patient had been not following instructions and there were barriers to get the patient to surgical intervention. At least part of the barriers were due to patient factors alone. Patient reported having contacted my office approximately 5 times to try and make an appointment and was told that we "do not accept" his insurance. Careful review of office records showed no documentation of patient calling. Patient also believed that he had had [employer] as his insurance carrier, but his insurance carrier was [employer] (accepted by our program). Patient re-presented to [facility] through ED with constipation, vomiting, abdominal distension and dilated loops of small intestine on 04/01/16. Significant comorbidities included not insignificant malnutrition with BMI 15.8 and dehydration, albumin of 3.6 in the setting of inability to feed enterically. Small area of liver in segment 6 and two very small areas in segment 4a of questionable significance (too small to tell) benign path vs. metastatic disease. We attempted to treat the bowel obstruction with nonoperative management with the hope that the patient would be able to increase his oral intake and improve his nutritional status prior to potentially getting systemic chemotherapy in the neoadjuvant fashion before surgical intervention. Patient very clearly showed us that his bowels were not able to tolerate any meaningful amount of nutritional intake after a few days of this management and for this reason, and after a multidisciplinary discussion, we decided to change our treatment strategy and take the patient to the operating room. + BM 07/21/16. List of operative interventions on 04/12/16: 1. Laparoscopic exploration converted to open exploration 2. Partial colectomy with removal of upper part of rectum and sigmoid colon ( modifier 22) 3. Resection of the end of terminal ileum along with cecum with primary anastomosis 4. Performance of an colostomy using distal descending colon 5. Extensive lysis of adhesions (at least 60 minutes) 6. Intraoperative ultrasound of the liver 7. Abdominal lavage D/c home 04/23/16. Two visits to ED for constipation 06/07 and 06/11/16. Readmitted after a few ED visits in June and July 2016 though ED to [facility] on 07/19/16 with UTI and perhaps partial SBO. Treated non-operatively successfully with treatment of UTI and resolution of partial SBO; d/c home 07/22/16. Readmitted for similar complaints. Kept on bowel rest and started having bowel activity 07/30/16. SBFT 07/30/16 seemed to indicate acceptable transit through small bowel. Comorbidities: 1. Rectal malignancy, s/p chemotherapy and radiation June to Nov 2015; obstruction end of terminal ileum as well as at the level of the rectosigmoid junction with aggressive locally advanced rectal cancer; S/p an otherwise uncomplicated but challenging resection of both involved portions of rectosigmoid as well as terminal ileum in the setting of aggressive rectal cancer with local invasion of the pelvis on 04/13/16. 2. Hypertension 3. Cachexia; BMI 15.8; albumin of 3.6 in the setting of inability to feed enterically 4. Colonoscopy June 2015 5. Anxiety 6. Multiple visits to ED and admissions to hospital through July 2016 7. SBFT 07/30/16 at [facility] seemed to indicate acceptable transit through small bowel. Subjective: No major events or complaints; no major abd pain and under control with medications; -n/-v/-d; no sob or cp; + flatus; + BM; + activity Objective: Vitals: See below Exam: GENERAL: On exam, the patient was laying in bed and appeared to be comfortable and in no acute distress. ABDOMEN: Soft, nontender and nondistended. Incisions are clean, dry and intact without any evidence of erythema, edema, discharge, or hernia. Ostomy pink and viable. + bowel activity in the bag. There are no peritoneal signs or guarding. SKIN: Skin appears to be pink and feels warm to touch. NEUROLOGIC: Patient is awake, alert, and follows commands appropriately. Exam/Review of Systems Vital Signs Vitals Vital Signs Date Time Temp Pulse Resp B/P Pulse Ox O2 Delivery O2 Flow Rate FiO2 07/31/16 07:40 97.5 76 16 116/60 97 Intake and Output 07/30/16 07/30/16 07/31/16 15:00 23:00 07:00 Intake Total 800 ml 1050 ml 880 ml Output Total 200 ml 2650 ml Balance 800 ml 850 ml -1770 ml Results Result Diagram: 07/31/16 0520 07/31/16 0520 DIVINE BEY M.D. July 31, 2016 10:30
--- NOTE | 2016-07-31 10:41 | PN ---
DATE: 07/31/2016 SUBJECTIVE: Gross hematuria that has cleared. HISTORY OF PRESENT ILLNESS: The patient states that he is feeling better. He is urinating clear ur ine now and he does have a history of colorectal cancer status post resection and still has a pelvic mass and he is awaiting chemotherapy. He did have initially radiation and he had bowel obstruction . He states that he did have 3 bowel movements yesterday and he is tolerating his diet well. OBJECTIVE FINDINGS: VITAL SIGNS: His temperature is 97.5. His blood pressure is 116/60, pulse 76, respirations 16. ABDOMEN: Soft. EXTREMITIES: There is no tenderness and the urine is clear. LABORATORY DATA: His CBC shows a white count of 5.1, hemoglobin 11.8, hematocrit 37.6. BUN is 11, creatinine 0.62, sodium 137, potassium 5.2, chloride 104, CO2 28. Urine culture no growth after 48 hours. IMPRESSION: Gross hematuria. This again could be because of the colon tumor invading into the post erior wall of the bladder, as it is suspected on the CT scan, but at the present his urine is clear. Therefore, the patient from a urological standpoint, we will just observe him. He is awaiting the start of the chemotherapy. Dictated By: TATIANA GREENBERG/KEVIN Conf#: [id number] DID#: [id number]
--- NOTE | 2016-07-31 14:05 | PN ---
DATE: 07/31/2016 SUBJECTIVE: Patient is very lethargic presently, appears comfortable and just recently got a dose o f Ativan for anxiety. PHYSICAL EXAMINATION: VITAL SIGNS: Temperature 97.5, blood pressure 116/60, pulse ox 97% on room air. CHEST: Clinically clear. ABDOMEN: Soft, bowel sounds still hypoactive. EXTREMITIES: Trace edema. Homans sign is negative. LABORATORY DATA: Sodium 137, potassium 5.2 (patient took potassium supplements). WBC count 5.9, he matocrit 37.6, platelet count 334,000. Gastrografin study pending. Dr. Juárez's surgical consultation and Dr. Marks's consultation greatly appreciated. IMPRESSION: 1. Resolving small-bowel obstruction. 2. Status post partial colectomy, excision of upper part of the rectum and sigmoid colon for rectal carcinoma ____. 3. Hypertension. 4. ____. 5. Hyperkalemia. PLAN: Will continue IV hydration. Increase diet per Dr. Juárez's recommendations. If the patient is stable over the next 24 hours, consider discharge tomorrow. Dictated By: JM HARRIS MD SR/NTS Conf#: [id number] DID#: [id number]
[2016-07-31 19:21] VITALS: BP 129/62; RESP 20
--- NOTE | 2016-07-31 21:21 | CONS ---
Date/Time of Note Date/Time of Note DATE: 07/31/16 TIME: 21:21 Assessment/Plan Assessment/Plan Chief Complaint/Hosp Course Status post partial colectomy, excision of probable upper part of the rectum, sigmoid colon for rectal cancer 3 months ago. Resolving partial small-bowel obstruction. History of hypertension. History of nephrolithiasis. Mild hyponatremia. cont medical treatment hopefully chemo LAILA Problems: Consultation Date/Type/Reason Admit Date/Time July 25, 2016 at 11:31 24 HR Interval Summary Free Text/Dictation felling better Exam/Review of Systems Vital Signs Vitals Vital Signs Date Time Temp Pulse Resp B/P Pulse Ox O2 Delivery O2 Flow Rate FiO2 07/31/16 19:21 98.4 71 20 129/62 100 Intake and Output 07/30/16 07/30/16 07/31/16 15:00 23:00 07:00 Intake Total 800 ml 1050 ml 880 ml Output Total 200 ml 2650 ml Balance 800 ml 850 ml -1770 ml Exam GENERAL: The patient is an average-built male who appears pale, in moderate distress. HEENT: Head normocephalic. No mild pallor without cyanosis. Chest clinically clear. HEART: S1, S2 with no definite gallops. ABDOMEN: Soft. Bowel sounds hypoactive. Mild diffuse tenderness without rebound. EXTREMITIES: No edema. Homans sign is negative. NEUROLOGIC: No localizing or lateralizing signs. Results Result Diagram: 07/31/16 0520 07/31/16 0520 Results 24 hrs Laboratory Tests Test 07/31/16 05:20 White Blood Count 5.9 # Red Blood Count 4.52 L Hemoglobin 11.8 L Hematocrit 37.6 L Mean Corpuscular Volume 83.2 Mean Corpuscular Hemoglobin 26.1 L Mean Corpuscular Hemoglobin Concent 31.4 L Red Cell Distribution Width 14.1 Platelet Count 334 # Mean Platelet Volume 8.9 Neutrophils % 69.6 Lymphocytes % 21.8 Monocytes % 6.8 Eosinophils % 1.0 Basophils % 0.3 Nucleated Red Blood Cells % 0.0 Neutrophils # 4.1 Lymphocytes # 1.3 Monocytes # 0.4 Eosinophils # 0.1 Basophils # 0.0 Nucleated Red Blood Cells # 0.0 Sodium Level 137 Potassium Level 5.2 H Chloride Level 104 Carbon Dioxide Level 28 Anion Gap 10 # Blood Urea Nitrogen 11 Creatinine 0.62 Glucose Level 87 Calcium Level 9.2 Medications Medications Current Medications Ondansetron HCl (Zofran Inj) 4 mg Q4H PRN IV NAUSEA AND/OR VOMITING; Start at 17:30 Hydromorphone HCl (Dilaudid) 2 mg Q4H PRN IV severe pain Last administered on 19:29; Admin Dose 2 MG; Start 07/25/16 at 20:30 Al Hydrox/Mg Hydrox/Simethicone (Mag-Al Plus) 30 ml TID PRN PO GASTROINTESTINAL UPSET Last administered on 07/31/16 05:37; Admin Dose 30 ML; Start 07/26/16 at 20:00 Pantoprazole 40 mg 40 mg DAILY@06 PO Last administered on 07/31/16 06:09; Admin Dose 40 MG; Start 07/27/16 at 06:00 Sodium Chloride (1/2 NS) 1,000 ml @ 75 mls/hr [id number] IV Last administered on 07/31/16 14:31; Admin Dose 75 MLS/HR; Start 07/30/16 at 13:30 Lorazepam (Ativan) 0.5 mg Q4H PRN PO ANXIETY; Start 07/31/16 at 10:30 Lorazepam (Ativan) 0.5 mg Q4 PRN IV anxiety Last administered on 07/31/16 12: 09; Admin Dose 0.5 MG; Start 07/31/16 at 12:30 JASMINA PALOMARES MD July 31, 2016 21:21
[2016-08-01] MEDS: LORAZEPAM 2 MG INJ IV PRN ×2 (00:26→11:13)
[2016-08-01] MEDS: HYDROmorphONE 2 MG/ML SYG IV PRN ×3 (01:28→09:31)
[2016-08-01] MEDS: SOD CHLORIDE 0.45% 1,000 ML IV SCH ×2 (04:14→04:15)
[2016-08-01] MEDS: PANTOPRAZOLE (EC) 40 MG TAB PO SCH (05:32)
[2016-08-01 06:49] LABS: ADD SCAN DIFF NO
[2016-08-01 07:05] LABS: BASOPHILS % 0.4 % (0.0-2.0); EOSINOPHILS # 0.1 10^3/ul (0.0-0.5); EOSINOPHILS % 1.3 % (0.0-7.0); HEMOGLOBIN 9.8 g/dl (14.0-18.0); LYMPHOCYTES # 0.8 10^3/ul (0.8-2.9); LYMPHOCYTES % 16.3 % (15.0-51.0); MEAN CORPUSCULAR HEMOGLOBIN 26.3 pg (29.0-33.0); MEAN CORPUSCULAR HGB CONC 31.6 g/dl (32.0-37.0); MEAN CORPUSCULAR VOLUME 83.3 fl (82.0-101.0); MONOCYTE # 0.5 10^3/ul (0.3-0.9); MONOCYTES % 9.9 % (0.0-11.0); NEUTROPHIL # 3.4 10^3/ul (1.6-7.5); NEUTROPHILS % 71.9 % (39.0-77.0); PLATELET COUNT 279 10^3/UL (140-415); RED BLOOD COUNT 3.72 10^6/ul (4.70-6.10); RED CELL DISTRIBUTION WIDTH 13.7 % (11.5-14.5); WHITE BLOOD COUNT 4.7 10^3/ul (4.8-10.8)
[2016-08-01 07:28] LABS: CALCIUM 7.6 mg/dl (8.4-10.2); CREATININE 0.52 mg/dl (0.61-1.24); POTASSIUM 3.4 mmol/L (3.5-5.1)
[2016-08-01 07:35] VITALS: BP 145/69; RESP 16
--- NOTE | 2016-08-01 07:47 | RADRPT ---
PROCEDURE: Small bowel series CLINICAL INDICATION: Abdominal pain TECHNIQUE: The patient was NPO. The patient given 240 cc of Gastrografin orally via a cup. Subsequ ently videofluoroscopy was performed was performed. Routine fluoroscopy was performed. COMPARISON: None FINDINGS: The patient vomited approximately 45 minutes into the study approximately 300 cc. Normal gastric pos ition, contour, distensibility, peristalsis, emptying and mucosal pattern. No gastric ulcer identifi ed. No gastric mass identified. Unremarkable duodenum. No duodenal ulcer identified. Multiple dilated loops of bowel are identified measuring up to 6.5 cm in diameter. No contrast is noted past the mid to distal small bowel after 2.5 hours. RPTAT: AVH IMPRESSION: Dilated loops of small bowel are noted. No contrast is noted past the mid to distal small bowel aft er 2.5 hours although this may be secondary to dilution after the patient vomited. Findings suggest at least a partial small bowel obstruction. If clinical suspicion for a high-grade obstruction per sists, consider repeating the small bowel follow-through study after the administration of Zofran. Physician Chavo Date Time Electronically viewed and signed by Physician Chavo on 08/01/2016 07:47 RA/
--- NOTE | 2016-08-01 09:40 | PN ---
Date/Time of Note Date/Time of Note DATE: 08/01/16 TIME: 09:36 Assessment/Plan Lines/Catheters IV Catheter Type (from [facility]): Peripheral IV Coates in Place (from [facility]): No Assessment/Plan Assessment/Plan [facility] Progress Note Date of Service: 08/01/16 Today's Impression & Plan: Overall stable with resolving partial SBO. The official report of the SBFT reviewed. Currently clinically appears to have open intestines and a productive ostomy. No indication for acute surgical intervention. Since no good surgical solutions exist, recommend discharge with full liquid diet and strict instructions to keep well hydrated. I also strongly recommend commencement of chemo as soon as possible. With above assessment, I've recommended the following for today: 1. Cont full liquid diet 2. D/c home today with quick outpatient start of chemo 3. May need to be prepared for more episodes of partial SBO, which may require NPO status and TPN as a bridge while undergoing systemic chemo. Not a candidate for revision surgery and would do poorly with emergency operation for bowel obstruction. Thank you again for your great care of this very pleasant patient and wonderful family. If there are any questions, please feel free to call me at [phone]. TOTAL VISIT TIME: 20 minutes of which more than half was spent in [id number] discussion with the patient, possibly including family, as well as coordination of care between multiple physicians and providers. Disclaimer: Inadvertent spelling or grammatical errors are likely due to EHR/ dictation software use and do not reflect on the overall quality of patient care. Updated Clinical Summary: The patient is a very pleasant 65-year-old gentleman with comorbidities including hypertension, who was initially admitted to [facility] through ED on 2015 with signs and symptoms consistent with anemia that eventually was shown to be a large, nearly obstructing mass approximately 12 cm from the anal verge up to the area of the rectosigmoid junction on colonoscopy 06/07/2015. Plan at that time was neoadjuvant treatment with chemoradiation followed by restaging and surgical resection. Patient underwent radiation therapy (Dr. Aranda) that ended September 2015 (patient's recollection was November 2015). Discussions with multiple colleagues revealed evidence that the patient had been not following instructions and there were barriers to get the patient to surgical intervention. At least part of the barriers were due to patient factors alone. Patient reported having contacted my office approximately 5 times to try and make an appointment and was told that we "do not accept" his insurance. Careful review of office records showed no documentation of patient calling. Patient also believed that he had had [employer] as his insurance carrier, but his insurance carrier was [employer] (accepted by our program). Patient re-presented to [facility] through ED with constipation, vomiting, abdominal distension and dilated loops of small intestine on 04/01/16. Significant comorbidities included not insignificant malnutrition with BMI 15.8 and dehydration, albumin of 3.6 in the setting of inability to feed enterically. Small area of liver in segment 6 and two very small areas in segment 4a of questionable significance (too small to tell) benign path vs. metastatic disease. We attempted to treat the bowel obstruction with nonoperative management with the hope that the patient would be able to increase his oral intake and improve his nutritional status prior to potentially getting systemic chemotherapy in the neoadjuvant fashion before surgical intervention. Patient very clearly showed us that his bowels were not able to tolerate any meaningful amount of nutritional intake after a few days of this management and for this reason, and after a multidisciplinary discussion, we decided to change our treatment strategy and take the patient to the operating room. + BM 07/21/16. List of operative interventions on 04/12/16: 1. Laparoscopic exploration converted to open exploration 2. Partial colectomy with removal of upper part of rectum and sigmoid colon ( modifier 22) 3. Resection of the end of terminal ileum along with cecum with primary anastomosis 4. Performance of an colostomy using distal descending colon 5. Extensive lysis of adhesions (at least 60 minutes) 6. Intraoperative ultrasound of the liver 7. Abdominal lavage D/c home 04/23/16. Two visits to ED for constipation 06/07 and 06/11/16. Readmitted after a few ED visits in June and July 2016 though ED to [facility] on 07/19/16 with UTI and perhaps partial SBO. Treated non-operatively successfully with treatment of UTI and resolution of partial SBO; d/c home 07/22/16. Readmitted for similar complaints. Kept on bowel rest and started having bowel activity 07/30/16. SBFT 07/30/16 seemed to indicate acceptable transit through small bowel. Comorbidities: 1. Rectal malignancy, s/p chemotherapy and radiation June to Nov 2015; obstruction end of terminal ileum as well as at the level of the rectosigmoid junction with aggressive locally advanced rectal cancer; S/p an otherwise uncomplicated but challenging resection of both involved portions of rectosigmoid as well as terminal ileum in the setting of aggressive rectal cancer with local invasion of the pelvis on 04/13/16. 2. Hypertension 3. Cachexia; BMI 15.8; albumin of 3.6 in the setting of inability to feed enterically 4. Colonoscopy June 2015 5. Anxiety 6. Multiple visits to ED and admissions to hospital through July 2016 7. SBFT 07/30/16 at [facility] seemed to indicate acceptable transit through small bowel. Subjective: No major events or complaints; no major abd pain and under control with medications; -n/-v/-d; no sob or cp; + flatus; + BM; + activity Objective: Vitals: See below Exam: GENERAL: On exam, the patient was standing up in his room and appeared to be comfortable and in no acute distress. ABDOMEN: Soft, nontender and nondistended. Incisions are clean, dry and intact without any evidence of erythema, edema, discharge, or hernia. Ostomy pink and viable. + bowel activity in the bag. There are no peritoneal signs or guarding. SKIN: Skin appears to be pink and feels warm to touch. NEUROLOGIC: Patient is awake, alert, and follows commands appropriately. Exam/Review of Systems Vital Signs Vitals Vital Signs Date Time Temp Pulse Resp B/P Pulse Ox O2 Delivery O2 Flow Rate FiO2 08/01/16 07:35 97.6 62 16 145/69 98 Intake and Output 07/31/16 07/31/16 08/01/16 15:00 23:00 07:00 Intake Total 350 ml 1260 ml 895 ml Output Total 300 ml Balance 350 ml 960 ml 895 ml Results Result Diagram: 08/01/16 0607 08/01/16 0607 DIVINE BEY M.D. Aug 01, 2016 09:40
--- NOTE | 2016-08-01 10:10 | PN ---
DATE: 08/01/2016 SUBJECTIVE: The patient states that he is doing better and that he has had more soft bowel movement s, and denies having any pain. He is urinating well and there is no hematuria any longer. OBJECTIVE: VITAL SIGNS: Temperature is 97.6, blood pressure 145/69, pulse is 62, respirations 16. ABDOMEN: Soft. He does have the colostomy and he is voiding well, and the urine is clear. LABORATORY DATA: His CBC shows a white count of 4.7, hemoglobin 9.8, hematocrit is 31.0. BUN is 8, creatinine 0.52. Sodium 125, potassium 3.4, chloride 96, CO2 25. Urine culture, no growth after 4 8 hours. IMPRESSION: History of colorectal cancer, status post radiation, partial resection of the colon, an d a colostomy. 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 At the present, the patient is not urinating any blood and he is awaiting the bowel obstruction to resolve and to also undergo chemotherapy. Urologically will just observe at the present. Dictated By: TATIANA GREENBERG/KEVIN Conf#: [id number] DID#: [id number]
--- NOTE | 2016-08-01 14:47 | DS ---
DATE OF ADMISSION: 07/25/2016 DATE OF DISCHARGE: 08/01/2016 FINAL DIAGNOSES: 1. Partial small-bowel obstruction, resolved. 2. Status post partial colectomy, excision of upper part of rectum, sigmoid colon for rectal carcin georgina, status post colostomy with recurrent cancer. 3. Hypertension. 4. Nephrolithiasis by history. 5. Mild anemia. HOSPITAL COURSE: The patient is a 65-year-old gentleman with history of rectal cancer presenting wi th severe abdominal pain, vomiting, constipation. Evaluated in the emergency room, found to have sm all-bowel obstruction and was admitted. The patient was discharged only 3 days prior with similar c omplaints. The patient was admitted to the medical floor, placed on intravenous hydration and was s een by Dr. Juárez from surgical standpoint, who recommended urology consultation. He was seen by Dr Milan Marks as there was a concern for infiltration of the tumor into the bladder. The patient was mo nitored closely and he began having soft bowel movements. He was placed on a clear liquid diet, whi ch was changed to full liquid diet. The patient was discharged home in much improved condition on f ull liquid diet and also follow up with Dr. Zapien who also evaluated the patient during his hosp italization for chemotherapy as soon as possible. DISCHARGE CONDITION: Much improved. Dictated By: JM HARRIS MD SR/NTS Conf#: [id number] DID#: [id number]
[2016-08-01] MEDS ORDERED: AL HYDROX/MG HYDROX/SIMETH 30 ML CUP PO SCH (17:40)
--- NOTE | 2016-08-01 22:57 | CONS ---
Date/Time of Note Date/Time of Note DATE: 08/01/16 TIME: 22:57 Assessment/Plan Assessment/Plan Chief Complaint/Hosp Course Status post partial colectomy, excision of probable upper part of the rectum, sigmoid colon for rectal cancer 3 months ago. Resolving partial small-bowel obstruction. History of hypertension. History of nephrolithiasis. Mild hyponatremia. OK TO DC hopefully chemo LAILA Problems: Consultation Date/Type/Reason Admit Date/Time July 25, 2016 at 11:31 24 HR Interval Summary Free Text/Dictation FELLING BETTER Exam/Review of Systems Vital Signs Vitals Vital Signs Date Time Temp Pulse Resp B/P Pulse Ox O2 Delivery O2 Flow Rate FiO2 08/01/16 07:35 97.6 62 16 145/69 98 Intake and Output 07/31/16 07/31/16 08/01/16 15:00 23:00 07:00 Intake Total 350 ml 1260 ml 895 ml Output Total 300 ml Balance 350 ml 960 ml 895 ml Exam GENERAL: The patient is an average-built male who appears pale, in NAD HEENT: Head normocephalic. No mild pallor without cyanosis. Chest clinically clear. HEART: S1, S2 with no definite gallops. ABDOMEN: Soft. Bowel sounds hypoactive. Mild diffuse tenderness without rebound. EXTREMITIES: No edema. Homans sign is negative. NEUROLOGIC: No localizing or lateralizing signs. Results Result Diagram: 08/01/16 0607 08/01/16 0607 Results 24 hrs Laboratory Tests Test 08/01/16 06:07 White Blood Count 4.7 #L Red Blood Count 3.72 L Hemoglobin 9.8 L Hematocrit 31.0 L Mean Corpuscular Volume 83.3 Mean Corpuscular Hemoglobin 26.3 L Mean Corpuscular Hemoglobin Concent 31.6 L Red Cell Distribution Width 13.7 Platelet Count 279 Mean Platelet Volume 9.0 Neutrophils % 71.9 Lymphocytes % 16.3 Monocytes % 9.9 Eosinophils % 1.3 Basophils % 0.4 Nucleated Red Blood Cells % 0.0 Neutrophils # 3.4 Lymphocytes # 0.8 Monocytes # 0.5 Eosinophils # 0.1 Basophils # 0.0 Nucleated Red Blood Cells # 0.0 Sodium Level 125 L Potassium Level 3.4 L Chloride Level 96 L Carbon Dioxide Level 25 Anion Gap 7 L Blood Urea Nitrogen 8 Creatinine 0.52 L Glucose Level 84 Calcium Level 7.6 L JASMINA PALOMARES MD Aug 01, 2016 22:57
== END 2016-08-01 18:30 | disposition home or self-care (01) | DRG 389 ==
LOC: E/R 09:16 → MS2 11:31
PROVIDERS: ADMIT Internal Medicine; ATTEND Internal Medicine
DX: K56.60 Unspecified intestinal obstruction (principal); E87.1 Hypo-osmolality and hyponatremia; Z85.048 Personal history of other malignant neoplasm of rectum, rectosigmoid junction, and anus; I10 Essential (primary) hypertension; N39.0 Urinary tract infection, site not specified; Z90.49 Acquired absence of other specified parts of digestive tract; D64.9 Anemia, unspecified
CPT/HCPCS: 36415; 74000; 74176; 74250; 80048; 80053; 81001; 83690; 83735; 85025; 85610; 85730; 87081; 87086; 96374; 96375; 96376; J1170; J2060; J2405; J3480; J7030

== ENCOUNTER 2016-09-11 15:00 | Emergency (ER) | payer MEDICARE, OTHER ==
[~2016-09-11] VITALS: Ht 182.9 cm; Wt 51.0 kg
[2016-09-11 15:02] VITALS: Ht 182.9 cm; Wt 51.0 kg
--- NOTE | 2016-09-11 15:18 | ERA ---
ER Documentation Chief Complaint Date/Time DATE: 09/11/16 TIME: 15:18 Chief Complaint abd pain , painful urination HPI The patient is a 66-year-old male, presenting to the ER because of intermittent abdominal pain for 1 week, worse today. He had similar symptoms previously from small bowel obstruction. he also complained of painful urination for 1 week , has similar symptoms previously due to acute cystitis. He denies fever, chills, syncope, near syncope, neck pain, chest pain, dyspnea. Abdominal pain is local on the left side of the abdomen, associated with nausea but no vomiting. He denied dysuria, polyuria, diarrhea, constipation. He does not smoke nor drink Past medical history: History of rectal carcinoma, ongoing chemotherapy. Past surgical history: He had a partial colectomy and colostomy ROS All systems reviewed and are negative except as per history of present illness. Medications Home Meds Reported Medications Hydrocodone/Acetaminophen (Randolph 10-325 Tablet) 1 Each Tablet, 1 EACH PO Q6H Y for PRN, TAB 09/11/16 Allergies Allergies: Coded Allergies: No Known Allergies (Verified Allergy, Unknown, 09/11/16) PMhx/Soc History of Surgery: Yes (Colon surgery (April 2016)) Anesthesia Reaction: No Hx Neurological Disorder: No Hx Respiratory Disorders: No Hx Cardiac Disorders: No Hx Psychiatric Problems: No Hx Alcohol Use: No Hx Substance Use: No Hx Tobacco Use: No Physical Exam Vitals Vital Signs Date Time Temp Pulse Resp B/P Pulse Ox O2 Delivery O2 Flow Rate FiO2 09/11/16 15:02 97.2 90 18 140/80 97 Physical Exam Const: No acute distress. Head: Atraumatic. Eyes: Normal Conjunctiva. ENT: Normal External Ears, Nose and Mouth. Neck: Full range of motion. No meningismus. Resp: Clear to auscultation bilaterally. Cardio: Regular rate and rhythm. Abd: Soft, non distended, normal bowel sounds, hypoactive bowel sounds , diffuse abdominal tenderness, mild tenderness on the left sided abdominal abdomen, no CVA tenderness Skin: No petechiae or rashes. Back: No midline or flank tenderness. Ext: No cyanosis, or edema. Neur: Awake and alert. No focal deficit Psych: Normal Mood and Affect. Result Diagram: 09/11/16 1545 09/11/16 1545 Results 24 hrs Laboratory Tests Test 09/11/16 15:45 7/12/17 18:20 White Blood Count 6.310^3/ul Red Blood Count 4.6110^6/ul Hemoglobin 12.2g/dl Hematocrit 37.3% Mean Corpuscular Volume 80.9fl Mean Corpuscular Hemoglobin 26.5pg Mean Corpuscular Hemoglobin Concent 32.7g/dl Red Cell Distribution Width 15.7% Platelet Count 46434^3/UL Mean Platelet Volume 8.6fl Neutrophils % 74.9% Lymphocytes % 15.8% Monocytes % 7.8% Eosinophils % 0.5% Basophils % 0.5% Nucleated Red Blood Cells % 0.0/100WBC Neutrophils # 4.710^3/ul Lymphocytes # 1.010^3/ul Monocytes # 0.510^3/ul Eosinophils # 0.010^3/ul Basophils # 0.010^3/ul Nucleated Red Blood Cells # 0.010^3/ul Prothrombin Time 13.1Sec Prothrombin Time Ratio 1.0 INR International Normalized Ratio 0.99 Activated Partial Thromboplast Time 25.8Sec Sodium Level 128mmol/L Potassium Level 4.0mmol/L Chloride Level 93mmol/L Carbon Dioxide Level 30mmol/L Anion Gap 9 Blood Urea Nitrogen 13mg/dl Creatinine 0.64mg/dl Glucose Level 107mg/dl Calcium Level 9.4mg/dl Total Bilirubin 0.2mg/dl Direct Bilirubin 0.00mg/dl Indirect Bilirubin 0.2mg/dl Aspartate Amino Transf (AST/SGOT) 24IU/L Alanine Aminotransferase (ALT/SGPT) 24IU/L Alkaline Phosphatase 95IU/L Total Protein 6.8g/dl Albumin 4.2g/dl Globulin 2.60g/dl Albumin/Globulin Ratio 1.61 Lipase 16U/L Bedside Urine pH (LAB) 8.5 Bedside Urine Protein (LAB) 2+ Bedside Urine Glucose (UA) Negative Bedside Urine Ketones (LAB) Negative Bedside Urine Blood 2+ Bedside Urine Nitrite (LAB) Negative Bedside Urine Leukocyte Esterase (L 3+ Current Medications Medications (Trade) Dose Ordered Sig/Krystle Route PRN Reason Start Time Stop Time Status Last Admin Dose Admin Hydromorphone HCl (Dilaudid) 1 mg ONCE STAT IV 09/11/16 15:35 09/11/16 15:37 DC 09/11/16 15:49 Ondansetron HCl 4 mg 4 mg ONCE STAT IV 09/11/16 15:35 09/11/16 15:37 DC 09/11/16 15:48 Sodium Chloride (NS) 1,000 ml @ 1,000 mls/hr Q1H ONCE IV 09/11/16 16:00 09/11/16 16:59 DC 09/11/16 16:10 Hydromorphone HCl 1 mg 1 mg ONCE STAT IV 09/11/16 16:50 09/11/16 16:51 DC 09/11/16 17:30 Piperacillin Sod/ Tazobactam Sod (Zosyn 3.375gm/ 100 ml (Pmx)) 100 ml @ 200 mls/hr ONCE ONCE IVPB 09/11/16 17:30 09/11/16 17:59 DC 09/11/16 17:31 Famotidine (Pepcid Iv) 20 mg ONCE ONCE IV 09/11/16 17:30 09/11/16 17:31 DC 09/11/16 17:30 Procedures/[place] [id number] Radiology Main Line: [phone] DIAGNOSTIC IMAGING REPORT Patient: CARA WILKINSON : 1950 Age: 66 Sex: M MR #: [id number] DOS: 09/11/16 1535 Ordering MD: MARSHAL BOLAÑOS MD Location: E/R Room/Bed: PROCEDURE: Chest x-ray CLINICAL INDICATION: Abdominal pain TECHNIQUE: Chest single view COMPARISON: 07/19/2016 FINDINGS: The heart is normal in size. The pulmonary vessels are normal in caliber. The lungs are clear. The costophrenic angles are sharp. The visualized bony thorax is unremarkable. IMPRESSION: No acute cardiopulmonary disease. Gas-filled mildly dilated loops of bowel in the upper abdomen. RPTAT: HH .Dakotah Brown MD, Date Time Electronically viewed and signed by .Dakotah Brown MD, on 09/11/2016 16:15 .W/ CC: MARSHAL BOLAÑOS MD [place] [id number] Radiology Main Line: [phone] DIAGNOSTIC IMAGING REPORT Patient: CARA WLIKINSON : 1950 Age: 66 Sex: M MR #: [id number] DOS: 09/11/16 1535 Ordering MD: MARSHAL BOLAÑOS MD Location: E/R Room/Bed: PROCEDURE: CT Abdomen and Pelvis without contrast. CLINICAL INDICATION: Dysuria, pain TECHNIQUE: CT of the abdomen and pelvis was performed on a multi-detector scanner without IV contrast. Coronal and sagittal images were reformatted from the axial data set. One or more of the following dose reduction techniques were used: automated exposure control, adjustment of the mA and/or kV according to patient size, use of iterative reconstruction technique. CTDI = 7.1 mGy. DLP = 342.87 mGy-cm. COMPARISON: CT, 07/25/2016 FINDINGS: CT abdomen: The lung bases are clear. The heart size is normal, without pericardial effusion. Liver, gallbladder, biliary tree, pancreas, spleen, adrenal glands and kidneys are unremarkable. No urolithiasis or obstructive uropathy is identified. Mild hiatal hernia is noted. The stomach is otherwise grossly unremarkable. The aorta is of normal caliber. Aortic vascular calcifications are present. There is no retroperitoneal lymphadenopathy. The aida hepatis region is clear. CT pelvis: The patient is status post sigmoid colon resection and left lower quadrant colostomy placement. Poorly defined infiltrative mass is seen arising from upper rectum. The patient is also status post ileocolic bowel resection. There is severe dilatation of small bowel proximally, with collapsed distal small bowel, consistent with high-grade small bowel obstruction. Transition point appears to be located in the lower pelvis in the region of the above described poorly defined rectal mass. No free intraperitoneal air or abscess is identified. Small amount of peritoneal free fluid is present. There is no diverticulosis, diverticulitis or colitis. No gross evidence of pelvic mass or lymphadenopathy is identified. The surrounding osseous structures are remarkable for degenerative enthesopathy of the spine. No osteolytic or osteoblastic lesion is detected. IMPRESSION: 1. Poorly defined infiltrative mass is again seen arising from the region of the upper rectum, grossly similar to prior CT. 2. There are findings compatible with high-grade small bowel obstruction, with transition point located in the general region of the above described rectal mass. Appearance is similar to prior CT from 07/25/2016. There is no evidence of bowel perforation or abscess formation. 5. The patient is again noted to be status post sigmoid colon resection, left lower quadrant colostomy placement, and ileocolic bowel resection. 4. Aortoiliac atherosclerotic calcifications are present. RPTAT: HDWR .Kar Vargas MD, MD Date Time Electronically viewed and signed by .Kar Vargas MD, MD on 09/11/2016 16: 58 .R/ CC: MARSHAL BOLAÑOS MD MEDICAL MAKING DECISION: The patient is a 76-year-old male, presenting with acute small bowel obstruction. he was treated with 1 L normal saline for clinical dehydration, Dilaudid 1 mg IV 2 for pain and Zofran for liquid IV 1 for nausea and Pepcid 20 mg IV for epigastric abdominal pain with good response. I have order for Zosyn IV and nasogastric tube, however he declined NG tube. Risks, benefits, alternatives were explained to the patient. Risks include but not limited to and permanent disability The differential diagnoses considered include but are not limited to cholelithiasis, cholecystitis, cystitis, pancreatitis, hepatitis, gastritis, peptic ulcer disease, gastric ulcer, appendicitis, diverticulitis, cholangitis, choledocholithiasis. Consultation: I discussed the patient with his general surgeon Dr. Gaona at 5: 30 PM, was made aware of the lab, the treatment, the patient condition. He agreed with the treatment plan and accepted the patient Departure Diagnosis: Primary Impression: Small bowel obstruction Additional Impression: Anemia Condition: Serious Comments I discussed the findings with the patient. I discussed the patient with his physician Brooks Gillette at 5:40 PM who was made aware of the lab, the treatment, the patient condition. The patient is admitted to medical surgery bed The patient later changed his mind and declined the admission. Dr. Ayanna Gaona has been notified The patient signed out AGAINST MEDICAL ADVICE. Risks, benefits, alternatives were explained to the patient. Risks include but not limited to and permanent disability MARSHAL BOLAÑOS MD Sep 11, 2016 15:18
[2016-09-11] MEDS ORDERED: ONDANSETRON 4 MG INJ IV STA (15:35)
[2016-09-11] MEDS ORDERED: HYDROmorphONE 1 MG/ML SYG IV STA ×2 (15:35→16:50)
[2016-09-11 15:48] LABS: ADD SCAN DIFF NO
[2016-09-11 15:50] LABS: BASOPHILS % 0.5 % (0.0-2.0); EOSINOPHILS % 0.5 % (0.0-7.0); HEMATOCRIT 37.3 % (42.0-52.0); HEMOGLOBIN 12.2 g/dl (14.0-18.0); LYMPHOCYTES % 15.8 % (15.0-51.0); MEAN CORPUSCULAR HEMOGLOBIN 26.5 pg (29.0-33.0); MEAN CORPUSCULAR HGB CONC 32.7 g/dl (32.0-37.0); MEAN CORPUSCULAR VOLUME 80.9 fl (82.0-101.0); MEAN PLATELET VOLUME 8.6 fl (7.4-10.4); MONOCYTE # 0.5 10^3/ul (0.3-0.9); MONOCYTES % 7.8 % (0.0-11.0); NEUTROPHIL # 4.7 10^3/ul (1.6-7.5); NEUTROPHILS % 74.9 % (39.0-77.0); PLATELET COUNT 349 10^3/UL (140-415); RED BLOOD COUNT 4.61 10^6/ul (4.70-6.10); RED CELL DISTRIBUTION WIDTH 15.7 % (11.5-14.5); WHITE BLOOD COUNT 6.3 10^3/ul (4.8-10.8)
[2016-09-11] MEDS ORDERED: SOD CHLORIDE 0.9% 1,000 ML IV ONE (16:00)
[2016-09-11 16:06] LABS: INR 0.99; PARTIAL THROMBOPLASTIN TIME 25.8 Sec (25.0-35.0); PROTIME 13.1 Sec (12.2-14.2)
--- NOTE | 2016-09-11 16:16 | RADRPT ---
PROCEDURE: Chest x-ray CLINICAL INDICATION: Abdominal pain TECHNIQUE: Chest single view COMPARISON: 07/19/2016 FINDINGS: The heart is normal in size. The pulmonary vessels are normal in caliber. The lungs are clear. Th e costophrenic angles are sharp. The visualized bony thorax is unremarkable. IMPRESSION: No acute cardiopulmonary disease. Gas-filled mildly dilated loops of bowel in the upper abdomen. RPTAT: HH .Dakotah Brown MD, MD Date Time Electronically viewed and signed by .Dakotah Brown MD, on 09/11/2016 16:15 .W/
--- NOTE | 2016-09-11 16:58 | RADRPT ---
PROCEDURE: CT Abdomen and Pelvis without contrast. CLINICAL INDICATION: Dysuria, pain TECHNIQUE: CT of the abdomen and pelvis was performed on a multi-detector scanner without IV contr ast. Coronal and sagittal images were reformatted from the axial data set. One or more of the foll owing dose reduction techniques were used: automated exposure control, adjustment of the mA and/or k V according to patient size, use of iterative reconstruction technique. CTDI = 7.1 mGy. DLP = 342.8 7 mGy-cm. COMPARISON: CT, 07/25/2016 FINDINGS: CT abdomen: The lung bases are clear. The heart size is normal, without pericardial effusion. Liver, gallbladd er, biliary tree, pancreas, spleen, adrenal glands and kidneys are unremarkable. No urolithiasis or obstructive uropathy is identified. Mild hiatal hernia is noted. The stomach is otherwise grossly unremarkable. The aorta is of normal caliber. Aortic vascular calcifications are present. There is no retroperit penn lymphadenopathy. The aida hepatis region is clear. CT pelvis: The patient is status post sigmoid colon resection and left lower quadrant colostomy placement. Poo rly defined infiltrative mass is seen arising from upper rectum. The patient is also status post il eocolic bowel resection. There is severe dilatation of small bowel proximally, with collapsed dista l small bowel, consistent with high-grade small bowel obstruction. Transition point appears to be l ocated in the lower pelvis in the region of the above described poorly defined rectal mass. No free intraperitoneal air or abscess is identified. Small amount of peritoneal free fluid is present. T here is no diverticulosis, diverticulitis or colitis. No gross evidence of pelvic mass or lymphadeno benigno is identified. The surrounding osseous structures are remarkable for degenerative enthesopathy of the spine. No os teolytic or osteoblastic lesion is detected. IMPRESSION: 1. Poorly defined infiltrative mass is again seen arising from the region of the upper rectum, iban sly similar to prior CT. 2. There are findings compatible with high-grade small bowel obstruction, with transition point loc ated in the general region of the above described rectal mass. Appearance is similar to prior CT fr om 07/25/2016. There is no evidence of bowel perforation or abscess formation. 5. The patient is again noted to be status post sigmoid colon resection, left lower quadrant colost johnny placement, and ileocolic bowel resection. 4. Aortoiliac atherosclerotic calcifications are present. RPTAT: HDWR .Kar Vargas MD, MD Date Time Electronically viewed and signed by .Kar Vargas MD, MD on 09/11/2016 16:58 .R/
[2016-09-11] MEDS ORDERED: HYDR-902 PO (17:17)
[2016-09-11 17:18] LABS: ALBUMIN 4.2 g/dl (3.3-4.9); ALBUMIN/GLOBULIN RATIO 1.61; BILIRUBIN,INDIRECT 0.2 mg/dl (0-1.1); BILIRUBIN,TOTAL 0.2 mg/dl (0.2-1.3); CALCIUM 9.4 mg/dl (8.4-10.2); CREATININE 0.64 mg/dl (0.61-1.24); TOTAL PROTEIN 6.8 g/dl (6.1-8.1)
[2016-09-11] MEDS ORDERED: PIPER-TAZO 3.375 GM IV (PMX) 100 ML IVPB ONE (17:30)
[2016-09-11] MEDS ORDERED: FAMOTIDINE 20 MG INJ IV ONE (17:30)
[2016-09-11 18:16] LABS: URINE BLOOD (Dip) POC 2+ (NEGATIVE)
== END 2016-09-11 18:55 | disposition left against medical advice (07) ==
LOC: E/R 15:00
DX: K56.69 Other intestinal obstruction (principal); D64.9 Anemia, unspecified; C20 Malignant neoplasm of rectum; R11.0 Nausea
CPT/HCPCS: 36415; 71010; 74176; 80053; 81003; 83690; 85025; 85610; 85730; 87086; 96374; 96375; 96376; 99285; J1170; J2405; J2543; J7030

== ENCOUNTER 2017-01-13 11:30 | Inpatient (IN) | payer MEDICARE, OTHER ==
[~2017-01-13] VITALS: Ht 185.4 cm; Wt 59.5 kg
[~2017-01-13 11:30] MED LIST changes: -CIPR500T4 PO
[2017-01-13] MEDS ORDERED: HYDROmorphONE 1 MG/ML SYG IV STA ×3 (11:48→14:42)
[2017-01-13] MEDS ORDERED: ONDANSETRON 4 MG INJ IV STA ×3 (11:48→14:42)
[2017-01-13] MEDS ORDERED: SOD CHLORIDE 0.9% 1,000 ML IV STA (11:48)
[2017-01-13 12:16] LABS: BASOPHILS % 0.2 % (0.0-2.0); EOSINOPHILS % 0.3 % (0.0-7.0); HEMATOCRIT 25.7 % (42.0-52.0); HEMOGLOBIN 7.6 g/dl (14.0-18.0); LYMPHOCYTES # 0.7 10^3/ul (0.8-2.9); LYMPHOCYTES % 7.1 % (15.0-51.0); MEAN CORPUSCULAR HEMOGLOBIN 23.9 pg (29.0-33.0); MEAN CORPUSCULAR HGB CONC 29.6 g/dl (32.0-37.0); MEAN CORPUSCULAR VOLUME 80.8 fl (82.0-101.0); MEAN PLATELET VOLUME 8.8 fl (7.4-10.4); MONOCYTE # 0.5 10^3/ul (0.3-0.9); MONOCYTES % 5.2 % (0.0-11.0); NEUTROPHILS % 86.4 % (39.0-77.0); PLATELET COUNT 512 10^3/UL (140-415); RED BLOOD COUNT 3.18 10^6/ul (4.70-6.10); RED CELL DISTRIBUTION WIDTH 17.1 % (11.5-14.5); WHITE BLOOD COUNT 9.3 10^3/ul (4.8-10.8)
[2017-01-13 12:34] LABS: INR 1.12; PROTIME 14.4 Sec (12.2-14.2); PT RATIO 1.1
[2017-01-13 12:36] LABS: PARTIAL THROMBOPLASTIN TIME 33.9 Sec (25.0-35.0)
[2017-01-13 12:38] LABS: ALANINE AMINOTRANSFERASE 22 IU/L (13-69); ALBUMIN 2.8 g/dl (3.3-4.9); ALBUMIN/GLOBULIN RATIO 0.93; ALKALINE PHOSPHATASE 100 IU/L (42-121); ANION GAP 14 (8-16); ASPARTATE AMINO TRANSFERASE 11 IU/L (15-46); BILIRUBIN,INDIRECT 0.1 mg/dl (0-1.1); BILIRUBIN,TOTAL 0.1 mg/dl (0.2-1.3); BLOOD UREA NITROGEN 15 mg/dl (7-20); CALCIUM 8.3 mg/dl (8.4-10.2); CARBON DIOXIDE 28 mmol/L (21-31); CHLORIDE 105 mmol/L (97-110); CREATININE 0.75 mg/dl (0.61-1.24); GLUCOSE 98 mg/dl (70-220); POTASSIUM 3.3 mmol/L (3.5-5.1); SODIUM 144 mmol/L (135-144); TOTAL PROTEIN 5.8 g/dl (6.1-8.1)
[2017-01-13] MEDS ORDERED: IOHEXOL 300MG/ML 150 ML BTL ONE (13:32)
[2017-01-13] MEDS ORDERED: SOD CHLORIDE 0.9% 100 ML ONE (13:32)
--- NOTE | 2017-01-13 14:33 | RADRPT ---
PROCEDURE: CT Abdomen and Pelvis with contrast. CLINICAL INDICATION: Abdominal pain TECHNIQUE: CT scan of the abdomen and pelvis with contrast was performed on a multidetector high-r esolution CT scanner. Coronal and sagittal reformatted images were obtained from the axial source im ages. Images were reviewed on a high-resolution PACS workstation. 80 cc of Isovue 300 iodinated cont rast was administered intravenously without reported complication. The total exam CTDI equals 6 mGy and the total exam DLP equals 402 mGy-cm. One or more of the following dose reduction techniques w ere used: Automated exposure control, Adjustment of the mA and/or kV according to patient size, and/ or use of iterative reconstruction technique. DICOM images are available. COMPARISON: Abdominal CT 09/11/2016 FINDINGS: Small to moderate left pleural effusion with left lower lobe atelectasis. Diffuse ascites. Marked dilatation of small bowel loops with transition point in the pelvis. Poorly defined infiltrative mass again noted in the region of the upper rectum. Now seen is an ill-defined fluid density structure extending anterior from the rectum with communication with the bladder. No suspicious hepatic mass identified. Portal vein is patent. No pancreatic ductal dilatation is see n. The spleen and adrenals are unremarkable. Heterogeneously enhancing left upper renal pole lesion measuring 3.1 cm. Normal gallbladder size. No hydronephrosis. No obstructing renal stone. No evidence of pneumoperitoneum. Aortoiliac atherosclerosis. IMPRESSION: High-grade small bowel obstruction with transition point in the pelvis. Poorly defined infiltrative mass again noted in the region of the upper rectum. 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 Left upper renal pole enhancing mass measuring 3.1 cm. Diffuse ascites. Small to moderate left pleural effusion with left lower lobe atelectasis. RPTAT: AA .Agustin Hanley MD, Date Time Electronically viewed and signed by .Agustin Hanley MD, on 01/13/2017 14:33 .T/
[2017-01-13] MEDS ORDERED: SOD CHLORIDE 0.9% 1,000 ML IV SCH (14:50)
--- NOTE | 2017-01-13 14:55 | ERD ---
ER Documentation Chief Complaint Chief Complaint abd pain, constipation, testicle swelling, hx of colon CA HPI This is a 66-year-old man with a history of colorectal cancer. The patient has a resection with ileostomy. The patient also has a history of small bowel obstruction. The patient is complaining of 3 days of virtually no output in his ileostomy with off and on nausea vomiting that is nonbloody. Also complaining of swelling to his legs and scrotum. Denies chest pain shortness of breath cough fever. Denies any recent blood output in his ileostomy. He is complaining of diffuse abdominal pain over the past 3 days increasing in severity described as sharp no radiation to the back ROS All systems reviewed and are negative except as per history of present illness. Medications Home Meds Reported Medications Hydrocodone/Acetaminophen ([place] 10-325 Tablet) 1 Each Tablet, 1 EACH PO Q6H Y for PRN, TAB 09/11/16 Allergies Allergies: Coded Allergies: No Known Allergies (Verified Allergy, Unknown, 01/13/17) PMhx/Soc History of Surgery: Yes (colonsectomy) Anesthesia Reaction: No Hx Neurological Disorder: No Hx Respiratory Disorders: No Hx Cardiac Disorders: No Hx Psychiatric Problems: No Hx Miscellaneous Medical Probl: Yes (hx of colon ca) Hx Alcohol Use: No Hx Substance Use: No Hx Tobacco Use: No Smoking Status: Never smoker FmHx Family History: No coronary disease Physical Exam Vitals Vital Signs Date Time Temp Pulse Resp B/P Pulse Ox O2 Delivery O2 Flow Rate FiO2 01/13/17 13:32 64 20 185/76 99 Room Air 01/13/17 11:33 97.1 80 20 139/67 99 Physical Exam Const: Well-developed, well-nourished Head: Atraumatic, normocephalic Eyes: Normal Conjunctiva, PERRLA, EOMI, normal sclera, no nystagmus ENT: Normal External Ears, Nose and Mouth, moist mucus membranes. Neck: Full range of motion. No meningismus, no lymphadenopathy. Resp: Clear to auscultation bilaterally, no wheezing, rhonchi, rales Cardio: Regular rate and rhythm, no murmurs, S1 S2 present Abd: Soft, diffuse moderate tenderness, non distended. Minimal bowel sounds, + guarding or rebound, no pulsitile abdominal masses or bruits, scrotal swelling is present Skin: No petechiae or rashes, no ecchymosis , no maculopapular rash Back: No midline or flank tenderness Ext: No cyanosis, +2 edema, FROM x 4, normal inspection, neurovascularly intact x 4 Neur: Awake and alert, STR 5/5 x 4, sensation intact x 4, no focal findings, cerebellum intact Psych: Normal Mood and Affect Result Diagram: 01/13/17 1158 01/13/17 1158 Results 24 hrs Laboratory Tests Test 01/13/17 11:58 White Blood Count 9.310^3/ul Red Blood Count 3.1810^6/ul Hemoglobin 7.6g/dl Hematocrit 25.7% Mean Corpuscular Volume 80.8fl Mean Corpuscular Hemoglobin 23.9pg Mean Corpuscular Hemoglobin Concent 29.6g/dl Red Cell Distribution Width 17.1% Platelet Count 58416^3/UL Mean Platelet Volume 8.8fl Neutrophils % 86.4% Lymphocytes % 7.1% Monocytes % 5.2% Eosinophils % 0.3% Basophils % 0.2% Nucleated Red Blood Cells % 0.0/100WBC Neutrophils # 8.010^3/ul Lymphocytes # 0.710^3/ul Monocytes # 0.510^3/ul Eosinophils # 0.010^3/ul Basophils # 0.010^3/ul Nucleated Red Blood Cells # 0.010^3/ul Prothrombin Time 14.4Sec Prothrombin Time Ratio 1.1 INR International Normalized Ratio 1.12 Activated Partial Thromboplast Time 33.9Sec Sodium Level 144mmol/L Potassium Level 3.3mmol/L Chloride Level 105mmol/L Carbon Dioxide Level 28mmol/L Anion Gap 14 Blood Urea Nitrogen 15mg/dl Creatinine 0.75mg/dl Glucose Level 98mg/dl Calcium Level 8.3mg/dl Total Bilirubin 0.1mg/dl Direct Bilirubin 0.00mg/dl Indirect Bilirubin 0.1mg/dl Aspartate Amino Transf (AST/SGOT) 11IU/L Alanine Aminotransferase (ALT/SGPT) 22IU/L Alkaline Phosphatase 100IU/L Total Protein 5.8g/dl Albumin 2.8g/dl Globulin 3.00g/dl Albumin/Globulin Ratio 0.93 Lipase < 10U/L Current Medications Medications (Trade) Dose Ordered Sig/Krystle Route PRN Reason Start Time Stop Time Status Last Admin Dose Admin Sodium Chloride (NS) 1,000 ml @ 1,000 mls/hr Q1H STAT IV 01/13/17 11:48 01/13/17 12:47 DC 01/13/17 12:06 Hydromorphone HCl (Dilaudid) 1 mg ONCE STAT IV 01/13/17 11:48 01/13/17 11:49 DC 01/13/17 12:07 Ondansetron HCl (Zofran Inj) 4 mg ONCE STAT IV 01/13/17 11:48 01/13/17 11:49 DC 01/13/17 12:06 Hydromorphone HCl (Dilaudid) 1 mg ONCE STAT IV 01/13/17 12:22 01/13/17 12:24 DC 01/13/17 12:37 Ondansetron HCl (Zofran Inj) 4 mg ONCE STAT IV 01/13/17 12:22 01/13/17 12:24 DC 01/13/17 12:36 IV Flush 10 ml 10 ml STK-MED ONCE .ROUTE 01/13/17 13:32 01/13/17 13:33 DC 01/13/17 14:07 Sodium Chloride (NS) 100 ml @ ud STK-MED ONCE .ROUTE 01/13/17 13:32 01/13/17 13:33 DC 01/13/17 14:07 Iohexol (Omnipaque 300mg/ ml) 150 ml STK-MED ONCE .ROUTE 01/13/17 13:32 01/13/17 13:33 DC 01/13/17 14:07 Hydromorphone HCl (Dilaudid) 1 mg ONCE STAT IV 01/13/17 14:42 01/13/17 14:43 DC Ondansetron HCl (Zofran Inj) 4 mg ONCE STAT IV 01/13/17 14:42 01/13/17 14:43 DC Procedures/MDM PROCEDURE: CT Abdomen and Pelvis with contrast. CLINICAL INDICATION: Abdominal pain TECHNIQUE: CT scan of the abdomen and pelvis with contrast was performed on a multidetector high-resolution CT scanner. Coronal and sagittal reformatted images were obtained from the axial source images. Images were reviewed on a high-resolution PACS workstation. 80 cc of Isovue 300 iodinated contrast was administered intravenously without reported complication. The total exam CTDI equals 6 mGy and the total exam DLP equals 402 mGy-cm. One or more of the following dose reduction techniques were used: Automated exposure control, Adjustment of the mA and/or kV according to patient size, and/or use of iterative reconstruction technique. DICOM images are available. COMPARISON: Abdominal CT 09/11/2016 FINDINGS: Small to moderate left pleural effusion with left lower lobe atelectasis. Diffuse ascites. Marked dilatation of small bowel loops with transition point in the pelvis. Poorly defined infiltrative mass again noted in the region of the upper rectum. Now seen is an ill-defined fluid density structure extending anterior from the rectum with communication with the bladder. No suspicious hepatic mass identified. Portal vein is patent. No pancreatic ductal dilatation is seen. The spleen and adrenals are unremarkable. Heterogeneously enhancing left upper renal pole lesion measuring 3.1 cm. Normal gallbladder size. No hydronephrosis. No obstructing renal stone. No evidence of pneumoperitoneum. Aortoiliac atherosclerosis. IMPRESSION: High-grade small bowel obstruction with transition point in the pelvis. Poorly defined infiltrative mass again noted in the region of the upper rectum. 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 Left upper renal pole enhancing mass measuring 3.1 cm. Diffuse ascites. Small to moderate left pleural effusion with left lower lobe atelectasis. RPTAT: AA .Agustin Hanley MD, Date Time Electronically viewed and signed by .Agustin Hanley MD, on 01/13/2017 14:33 .T/ CC: CHEO GARCIA DO Patient does not want NG tube. I spoke with his surgeon Dr. CANDY FITCH in consultation. Patient is well-appearing. Patient will need to receive 2 units of packed red blood cells for hemoglobin of 7.6. We will admit for small bowel obstruction Departure Diagnosis: Primary Impression: Small bowel obstruction Additional Impression: Anemia Anemia type: unspecified type Qualified Code: D64.9 - Anemia, unspecified type Condition: Stable ABDONOS,APOSTOLOS A. DO Jan 13, 2017 14:55
[2017-01-13] MEDS ORDERED: ONDANSETRON 4 MG INJ IV PRN (15:00)
[2017-01-13] MEDS ORDERED: ACETAMINOPHEN 325 MG TAB PO PRN (15:00)
[2017-01-13 16:00] VITALS: TEMP 97.9
[2017-01-13 16:38] VITALS: Ht 185.4 cm; Wt 59.5 kg
[2017-01-13 16:49] VITALS: BP 128/68; PULSE 83; RESP 18
[2017-01-13] MEDS: ONDANSETRON 4 MG INJ IV PRN (17:55)
[2017-01-13] MEDS ORDERED: D5W-0.45 NACL + KCL 30 MEQ 1,000 ML IV SCH (18:00)
[2017-01-13] MEDS ORDERED: HYDROmorphONE 1 MG/ML SYG IV PRN (18:00)
[2017-01-13] MEDS ORDERED: PANTOPRAZOLE 40 MG INJ IV ONE (20:00)
[2017-01-13 20:19] VITALS: BP 152/75; RESP 20
--- NOTE | 2017-01-13 20:20 | RADRPT ---
PROCEDURE: US bilateral lower extremity veins. CLINICAL INDICATION: Bilateral leg pain and swelling. TECHNIQUE: Multiple longitudinal and transverse images of the bilateral lower extremity veins were obtained with gaviria scale and color Doppler imaging. The common femoral vein, femoral vein, and popl iteal vein were evaluated. 2D grayscale measurements with compression sonography, color Doppler, and pulsed Doppler with augmentation. COMPARISON: No prior studies are available for comparison. FINDINGS: The bilateral common femoral, femoral and popliteal veins are normally compressible throughout. Col or flow demonstrates normal filling of the vessels. Normal waveforms are visualized and there is no rmal response to augmentation. IMPRESSION: 1. No evidence of deep vein thrombosis involving either lower extremity. RPTAT: QQ .Taz Tolbert MD, MD Date Time Electronically viewed and signed by .Taz Tolbert MD, on 01/13/2017 20:19 .R/
[2017-01-13] MEDS ORDERED: HYDROmorphONE 2 MG/ML SYG IV PRN (20:30)
[2017-01-13] MEDS: HYDROmorphONE 2 MG/ML SYG IV PRN (20:57)
--- NOTE | 2017-01-14 00:34 | HP ---
DATE OF ADMISSION: 01/13/2017 CHIEF COMPLAINT AND HISTORY OF PRESENT ILLNESS: The patient is a 66-year-old gentleman with history of colorectal cancer, status post prior resection with ileostomy with several admissions for small bowel obstruction in the last 6 months, presenting with a 3-day history of nausea, vomiting, very po or p.o. intake with no output in the ileostomy, along with increasing swelling of the scrotal area a nd lower extremities and the patient was evaluated in the emergency room and was admitted. The peter ent has been complaining of abdominal pain and also complains of purulent discharge from the urethra , occasionally bloody. The patient denies any fever or chills. MEDICATIONS: 1. [place] 10/325 q.6 hours p.r.n. 2. Lasix, exact dosage not clear. 3. Potassium, exact dosage not clear. REVIEW OF SYSTEMS: HEAD: No history of headaches, focal weakness, or numbness. EYES: No blurry vision or glaucoma. The patient wear glasses. ENT: Noncontributory. NECK: No history of thyroid disease. CHEST: No bronchitis, hay fever, or asthma. The patient does not smoke. HEART: No PND, orthopnea, palpitations. GASTROINTESTINAL: As above. The patient is presently getting chemotherapy per Dr. Zapien. Last chemo was given 2 weeks ago. Exact details will be documented in due course. GENITOURINARY: History of recurrent urinary tract infection and history of nephrolithiasis. FAMILY HISTORY: Significant for history of diabetes mellitus in the patient's father. HABITS: Does not smoke or drink. The patient had stage IV rectal cancer, status post palliative surgical intervention in 04/2016 by Dileep Juárez. The patient had been seen by Dr. Marks during previous hospitalization and felt that t he patient could have a fistula. The patient has had recurrent hematuria in the past. PHYSICAL EXAMINATION: GENERAL: The patient is an average-built male who appears pale, has a depressed affect. VITAL SIGNS: Blood pressure 139/67, pulse ox 99%, pulse 80 per minute, regular. HEENT: Head normocephalic. Moderate pallor without cyanosis. Tongue is moist. NECK: Supple, no thyromegaly, bruits, or lymphadenopathy. CHEST: Clinically clear. HEART: S1, S2 heard with no definite gallops. ABDOMEN: Mild diffuse tenderness. Abdomen not distended. Bowel sounds are hypoactive. Moderate sc rotal edema present. EXTREMITIES: 1+ pitting edema bilaterally. Homans sign is negative. NEUROLOGIC: No localizing or lateralizing signs. LABORATORY DATA: WBC count 9.3, hematocrit 25.7, platelet count is 512,000. Sodium 144, potassium 3.3, BUN 15, creatinine 0.75, albumin is 2.8. INR is 1.12. CAT scan of the abdomen and pelvis show s high-grade small bowel obstruction, poorly defined infiltrative mass in the upper rectum, and an i ll-defined fluid density structure extending anteriorly from the rectum with communication with the bladder, concerning for enterovesical fistula. Diffuse ascites, moderate left pleural effusion, lef t lower lobe atelectasis. IMPRESSION: 1. High-grade small bowel obstruction, probably secondary to tumor, stage IV rectal cancer, status post palliative surgical intervention 04/2016, on chemotherapy. 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 3. Severe anemia. 4. Severe hypoalbuminemia with third spacing. 5. Possible DVT of the lower extremities. PLAN: We will keep patient n.p.o., obtain clean catch urine for urine culture, and start the patien t empirically on IV antibiotic therapy to cover for E. coli. Will request a surgical consultation w genevieve Juárez, hematology/oncology consultation with Dr. Zapien, and urology consultation with Dileep Marks. He will be monitored closely for sepsis, typed and crossed for 2 units of packed cells, transfuse same. Pain management with Dilaudid. Dictated By: JM HARRIS MD, SR/NTS Conf#: [id number] DID#: [id number]
[2017-01-14] MEDS: HYDROmorphONE 2 MG/ML SYG IV PRN ×6 (01:01→21:10)
[2017-01-14 02:18] VITALS: BP 126/58; RESP 21
[2017-01-14] MEDS: PANTOPRAZOLE 40 MG INJ IV SCH (05:01)
[2017-01-14 06:30] LABS: ABNORMAL IP MESSAGE 1; BASOPHILS % 0.2 % (0.0-2.0); EOSINOPHILS # 0.1 10^3/ul (0.0-0.5); EOSINOPHILS % 0.9 % (0.0-7.0); HEMATOCRIT 23.2 % (42.0-52.0); LYMPHOCYTES # 0.7 10^3/ul (0.8-2.9); LYMPHOCYTES % 8.2 % (15.0-51.0); MEAN CORPUSCULAR HEMOGLOBIN 24.5 pg (29.0-33.0); MEAN CORPUSCULAR HGB CONC 29.7 g/dl (32.0-37.0); MEAN CORPUSCULAR VOLUME 82.3 fl (82.0-101.0); MEAN PLATELET VOLUME 8.9 fl (7.4-10.4); MONOCYTE # 0.7 10^3/ul (0.3-0.9); MONOCYTES % 8.1 % (0.0-11.0); NEUTROPHIL # 6.9 10^3/ul (1.6-7.5); PLATELET COUNT 445 10^3/UL (140-415); POSITIVE DIFF @See below; RED BLOOD COUNT 2.82 10^6/ul (4.70-6.10); RED CELL DISTRIBUTION WIDTH 17.2 % (11.5-14.5); WHITE BLOOD COUNT 8.4 10^3/ul (4.8-10.8)
[2017-01-14 06:57] LABS: ALBUMIN 2.5 g/dl (3.3-4.9); ALBUMIN/GLOBULIN RATIO 0.89; BILIRUBIN,INDIRECT 0.1 mg/dl (0-1.1); BILIRUBIN,TOTAL 0.1 mg/dl (0.2-1.3); CALCIUM 7.9 mg/dl (8.4-10.2); CREATININE 0.75 mg/dl (0.61-1.24); MAGNESIUM 1.7 mg/dl (1.7-2.5); POTASSIUM 3.4 mmol/L (3.5-5.1); TOTAL PROTEIN 5.3 g/dl (6.1-8.1)
[2017-01-14 07:00] LABS: HEMOGLOBIN 6.9 g/dl (14.0-18.0); PATH REVIEW? YES
[2017-01-14 07:55] VITALS: BP 149/70; RESP 18
[2017-01-14] MEDS: CEFTRIAXONE 1 GM/50 ML (PMX) 50 ML IVPB SCH (08:17)
[2017-01-14] MEDS ORDERED: LORAZEPAM 2 MG INJ IV PRN (08:30)
[2017-01-14] MEDS: D5W-0.45 NACL + KCL 40 MEQ 1,000 ML IV SCH ×2 (09:07→21:20)
[2017-01-14] MEDS ORDERED: POTASSIUM CHLORIDE 50 ML IVPB ONE (13:30)
--- NOTE | 2017-01-14 14:04 | PN ---
DATE: 01/14/2017 SUBJECTIVE: The patient feels slightly better, less nausea today. Continues with abdominal pain, n o vomiting, is n.p.o., requesting to eat some food. PHYSICAL EXAMINATION GENERAL: The patient is awake, alert. VITAL SIGNS: Temperature 98.0, blood pressure 149/70, O2 sats 99%. HEENT: Normocephalic, severe pallor without cyanosis. Tongue is coated, dry. NECK: Supple. No thyromegaly, or bruits, lymphadenopathy. LUNGS: Clinically clear. ABDOMEN: Soft, bowel sounds hypoactive. EXTREMITIES: 2+ edema. Homans negative. LABORATORY DATA: WBC count 8.4, hematocrit 23.2, dropped from 24.7 yesterday, potassium 3.4, albumi n is 2.5, magnesium 1.7. Urinalysis and culture pending. IMPRESSION: 1. Stage IV rectal cancer with high-grade small-bowel obstruction. 2. Enterovesical fistula. Likely urinary tract infection. 3. Severe anemia. 4. Severe hypoalbuminemia. 5. Lower extremity edema, no evidence of deep venous thrombosis on Doppler study. 6. The patient is also hypomagnesemic. PLAN: Will replace magnesium and potassium. consultation has been requested of Dr. Marks, hem atology consultation with Dr. Zapien and surgical consultation with Dr. Juárez and will follow de s recommendations. We will recheck labs in a.m. Await urine cultures. Case discussed with Dr. Riccardo parker. Dictated By: JM HARRIS MD, SR/KEVIN Conf#: [id number] DID#: [id number]
[2017-01-14 14:25] VITALS: BP 157/70; PULSE 60; RESP 16
[2017-01-14] MEDS ORDERED: POTASSIUM CHLORIDE 20 MEQ in DEXTROSE 5% 100 ML IV ONE (14:30)
[2017-01-14] MEDS ORDERED: MAGNESIUM SULFATE 3 GM in DEXTROSE 5% 100 ML IVPB ONE (14:30)
--- NOTE | 2017-01-14 16:45 | RADRPT ---
PROCEDURE: XR abdomen CLINICAL INDICATION: Abdominal pain. Obstruction. TECHNIQUE: AP abdomen x-ray images were obtained . COMPARISON: CT 01/13/2017 and abdominal radiograph 07/30/2016 FINDINGS: The heart is normal in size. Lungs bases are clear. Small left pleural effusion. Multiple dilated loops of small bowel measuring up to 5.9 cm in diameter. Contrast within the bladde r. IMPRESSION: Multiple dilated loops of small bowel consistent with distal obstruction. RPTAT:AAJJ Physician Dolores Date Time Electronically viewed and signed by Donato Geurra Physician on 01/14/2017 16:45 /
--- NOTE | 2017-01-14 17:27 | CONS ---
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 History of hypertension. History of nephrolithiasis. Severe hypoalbuminemia with third spacing. Mild hyponatremia. Problems: Consultation Date/Type/Reason Admit Date/Time Jan 13, 2017 at 14:51 Date of Consultation: Jan 14, 2017 Type of Consultation: HEMEON Reason for Consultation COLON CANCER Referring Provider: JM HARRIS MD Hx of Present Illness The patient is a 66-year-old gentleman with history of colorectal cancer, status post prior resection with ileostomy with several admissions for small bowel obstruction in the last 6 months, presenting with a 3-day history of nausea, vomiting, very poor p.o. intake with no output in the ileostomy, along with increasing swelling of the scrotal area and lower extremities and the patient was evaluated in the emergency room and was admitted. The patient has been complaining of abdominal pain and also complains of purulent discharge from the urethra, occasionally bloody. The patient denies any fever or chills. PT WAS initially admitted to [facility] through ED on 06/05/2015 with signs and symptoms consistent with anemia that eventually was shown to be a large, nearly obstructing mass approximately 12 cm from the anal verge up to the area of the rectosigmoid junction on colonoscopy 06/07/2015. Plan at that time was neoadjuvant treatment with chemoradiation followed by restaging and surgical resection. Patient underwent radiation therapy (Dr. Aranda) that ended September 2015 PT DID NOT FOLLOW WITH SURGERY AT THAT TIME AND UNDERWENT SURGERY ONLY ON , INCLUDING 1. Laparoscopic exploration converted to open exploration 2. Partial colectomy with removal of upper part of rectum and sigmoid colon ( modifier 22) 3. Resection of the end of terminal ileum along with cecum with primary anastomosis 4. Performance of an colostomy using distal descending colon 5. Extensive lysis of adhesions (at least 60 minutes) 6. Intraoperative ultrasound of the liver 7. Abdominal lavage PT IS RECEIVING CHEMOTHERAPY POST SURGERY, STARTED IN AUGUST, WITH MULTIPLE INTERRUPTIONS 2 TO DIFFERENT REASONS, INCLUDING COUPLE ADMISSIONS FOE SBO, PT IS NOT VERY COMPLIANT WITH OUTPT CHEMO ROS All systems reviewed and are negative except as per history of present illness. Medications Home Meds Reported Medications Hydrocodone/Acetaminophen ([place] 10-325 Tablet) 1 Each Tablet, 1 EACH PO Q6H Y for PRN, TAB 09/11/16 Allergies Allergies: Coded Allergies: No Known Allergies (Verified Allergy, Unknown, 01/13/17) PMhx/Soc History of Surgery: Yes (colonsectomy) Anesthesia Reaction: No Hx Neurological Disorder: No Hx Respiratory Disorders: No Hx Cardiac Disorders: No Hx Psychiatric Problems: No Hx Miscellaneous Medical Probl: Yes (hx of colon ca) Hx Alcohol Use: No Hx Substance Use: No Hx Tobacco Use: No Smoking Status: Never smoker FmHx Family History: No coronary disease Past Surgical History Past Surgical Hx: no surgical history Social History Smoking Status: Unknown if ever smoked Exam/Review of Systems Vital Signs Vitals Vital Signs Date Time Temp Pulse Resp B/P Pulse Ox O2 Delivery O2 Flow Rate FiO2 01/14/17 14:25 97.5 60 16 157/70 93 01/13/17 16:49 Room Air Intake and Output 01/13/17 01/13/17 01/14/17 15:00 23:00 07:00 Intake Total 0 ml 500 ml Output Total 2 ml Balance 0 ml 498 ml Exam GENERAL: The patient is awake, alert. HEENT: Normocephalic, severe pallor without cyanosis. Tongue is coated, dry. NECK: Supple. No thyromegaly, or bruits, lymphadenopathy. LUNGS: Clinically clear. ABDOMEN: Soft, bowel sounds very hypoactive. EXTREMITIES: 2+ edema. Homans negative. Results Result Diagram: 01/14/17 0540 01/14/17 0540 Results 24 hrs Laboratory Tests Test 01/14/17 05:40 White Blood Count 8.4 Red Blood Count 2.82 L Hemoglobin 6.9 *L Hematocrit 23.2 L Mean Corpuscular Volume 82.3 Mean Corpuscular Hemoglobin 24.5 L Mean Corpuscular Hemoglobin Concent 29.7 L Red Cell Distribution Width 17.2 H Platelet Count 445 H Mean Platelet Volume 8.9 Neutrophils % 82.0 H Lymphocytes % 8.2 L Monocytes % 8.1 Eosinophils % 0.9 Basophils % 0.2 Nucleated Red Blood Cells % 0.0 Neutrophils # 6.9 Lymphocytes # 0.7 L Monocytes # 0.7 Eosinophils # 0.1 Basophils # 0.0 Nucleated Red Blood Cells # 0.0 Pathologist Review (Hematology) YES Sodium Level 143 Potassium Level 3.4 L Chloride Level 107 Carbon Dioxide Level 28 Anion Gap 11 Blood Urea Nitrogen 15 Creatinine 0.75 Glucose Level 87 Calcium Level 7.9 L Magnesium Level 1.7 Total Bilirubin 0.1 L Direct Bilirubin 0.00 Indirect Bilirubin 0.1 Aspartate Amino Transf (AST/SGOT) 11 L Alanine Aminotransferase (ALT/SGPT) 18 Alkaline Phosphatase 92 Total Protein 5.3 L Albumin 2.5 L Globulin 2.80 Albumin/Globulin Ratio 0.89 Medications Medications Current Medications Ondansetron HCl (Zofran Inj) 4 mg Q4H PRN IV NAUSEA AND/OR VOMITING Last administered on 01/13/17 17:55; Admin Dose 4 MG; Start 01/13/17 at 18:00 Pantoprazole (Protonix Iv) 40 mg DAILY@06 IV Last administered on 01/14/17 05 :01; Admin Dose 40 MG; Start 01/14/17 at 06:00 Hydromorphone HCl 2 mg 2 mg Q4H PRN IV PAIN Last administered on 01/14/17 17: 04; Admin Dose 2 MG; Start 01/13/17 at 21:00 Ceftriaxone Sodium 50 ml @ 100 mls/hr Q24H IVPB Last administered on 08:17; Admin Dose 100 MLS/HR; Start 01/14/17 at 08:00 Potassium Chloride/Dextrose/ Sod Cl (D5-1/2ns + KCl 40 Meq) 1,000 ml @ 75 mls/ hr [id number] IV Last administered on 01/14/17 09:07; Admin Dose 75 MLS/HR; Start 01/14/17 at 08:00 Lorazepam 0.5 mg 0.5 mg Q6H PRN IV anxiety; Start 01/14/17 at 08:30 Magnesium Sulfate/ Dextrose (Magnesium Sulfate/D5W) 106 ml @ 35.333 mls/ hr ONCE ONCE IVPB Last administered on 01/14/17 17:04; Admin Dose 35.333 MLS/HR ; Start 01/14/17 at 14:30; Stop 01/14/17 at 17:29 JASMINA PALOMARES MD Jan 14, 2017 17:27
--- NOTE | 2017-01-14 19:08 | CONS ---
Date/Time of Note Date/Time of Note DATE: 01/14/17 TIME: 19:08 Assessment/Plan Assessment/Plan Additional Assessment/Plan [facility] SUBSEQUENT INPATIENT CONSULTATION NOTE DATE OF CONSULTATION: 01/14/2017 PLACE OF SERVICE: [facility] second floor [facility]. DATE OF ADMISSION: 01/13/2017 ASSESSMENT AND PLAN: A very pleasant but unfortunate 66-year-old gentleman with stage IV rectal cancer status post palliative surgical intervention 2016 with a few episodes of bowel obstruction, latest admission of which to [facility] was in July 2016, representing with a clinical picture consistent with partial small-bowel obstruction. Patient has been getting chemotherapy as well. Currently, the patient does not have any indication for acute surgical intervention. As before, surgical intervention is relatively contraindicated in this setting and would only delay life- prolonging chemotherapy, which is ongoing per report. As in the prior admission , there may be an issue with cancer invading into bladder to cause frequent UTI' s, expunge of material in the urine, and perhaps even explain slight output through the anus. A remedy may not be possible given clinical picture, but we could benefit from expertise of our urology colleagues in this regard. We may also have to consider residential antimicrobial therapy if a communication does exist between the bladder and the pelvis (may require ID consultation). Sorting these issues is important since urinary tract infection and partial bowel obstruction tend to delay his chemotherapy. I explained all of this in detail with the patient and answered all their questions to the best of my ability. I believe that they understand and agree with the plan. With above assessment, I recommend the followin. Continue in-house care 2. Keep n.p.o. 3. Consider urology consultation 4. Consider ID consultation 5. Dr. Zapien's input appreciated 6. Symptom control 7. Consider TPN while we wait for opening of GI tract 8. Consider involvement of Dr. Leigh for supportive care purposes Thank you again for allowing us to participate and remain part of the care team of this very pleasant gentleman and his wonderful family. If there are any questions, please feel free to contact me at [phone]. Updated Clinical Summary: The patient is a very pleasant 66-year-old gentleman with comorbidities including hypertension, who was initially admitted to [facility] through ED on 2015 with signs and symptoms consistent with anemia that eventually was shown to be a large, nearly obstructing mass approximately 12 cm from the anal verge up to the area of the rectosigmoid junction on colonoscopy 06/07/2015. Plan at that time was neoadjuvant treatment with chemoradiation followed by restaging and surgical resection. Patient underwent radiation therapy (Dr. Aranda) that ended September 2015 (patient's recollection was November 2015). Discussions with multiple colleagues revealed evidence that the patient had been not following instructions and there were barriers to get the patient to surgical intervention. At least part of the barriers were due to patient factors alone. Patient reported having contacted my office approximately 5 times to try and make an appointment and was told that we "do not accept" his insurance. Careful review of office records showed no documentation of patient calling. Patient also believed that he had had [facility] as his insurance carrier, but his insurance carrier was [employer] Shkola (accepted by our program). Patient re-presented to [facility] through ED with constipation, vomiting, abdominal distension and dilated loops of small intestine on 04/01/16. Significant comorbidities included not insignificant malnutrition with BMI 15.8 and dehydration, albumin of 3.6 in the setting of inability to feed enterically. Small area of liver in segment 6 and two very small areas in segment 4a of questionable significance (too small to tell) benign path vs. metastatic disease. We attempted to treat the bowel obstruction with nonoperative management with the hope that the patient would be able to increase his oral intake and improve his nutritional status prior to potentially getting systemic chemotherapy in the neoadjuvant fashion before surgical intervention. Patient very clearly showed us that his bowels were not able to tolerate any meaningful amount of nutritional intake after a few days of this management and for this reason, and after a multidisciplinary discussion, we decided to change our treatment strategy and take the patient to the operating room. + BM 07/21/16. List of operative interventions on 04/12/16: 1. Laparoscopic exploration converted to open exploration 2. Partial colectomy with removal of upper part of rectum and sigmoid colon ( modifier 22) 3. Resection of the end of terminal ileum along with cecum with primary anastomosis 4. Performance of an colostomy using distal descending colon 5. Extensive lysis of adhesions (at least 60 minutes) 6. Intraoperative ultrasound of the liver 7. Abdominal lavage D/c home 04/23/16. Two visits to ED for constipation 06/07 and 06/11/16. Readmitted after a few ED visits in June and July 2016 though ED to [facility] on 07/19/16 with UTI and perhaps partial SBO. Treated non-operatively successfully with treatment of UTI and resolution of partial SBO; d/c home 07/22/16. Readmitted for similar complaints, but was managed nonoperatively. Comorbidities: 1. Rectal malignancy, s/p chemotherapy and radiation June to Nov 2015; obstruction end of terminal ileum as well as at the level of the rectosigmoid junction with aggressive locally advanced rectal cancer; S/p an otherwise uncomplicated but challenging resection of both involved portions of rectosigmoid as well as terminal ileum in the setting of aggressive rectal cancer with local invasion of the pelvis on 04/13/16. 2. Hypertension 3. Cachexia; BMI 17.3 (previously 15.08 Jul 2016); albumin of 2.5 (previously 3.06 Jul 2016) in the setting of inability to feed enterically 4. Colonoscopy June 2015 5. Anxiety 6. Multiple visits to ED and admissions to hospital through July 2016 HISTORY OF PRESENT ILLNESS: The patient is a very pleasant 66-year-old gentleman with above-mentioned comorbidities who we were kindly asked to consult regarding management of his lack of output through his ostomy for almost a week prior to readmission to [facility] on 01/13/2017. Patient is very well known to me as mentioned above, since his operation in April 2016, for essentially what was found to be metastatic stage IV colorectal malignancy. He had been doing relatively well for a few months after his July admission and reportedly had started on chemotherapy when he stopped having output through his ostomy and had nausea and a few episodes of non-bloody vomiting. He had barley soup prior to start of his symptoms. Report. He has readmitted through the ED to [facility]. Note that his laboratory values are relatively benign with the exception of anemia and low albumin of 2.5. CT scan showed dilated small bowel without obvious transition point and no free air. Labs normal. ALLERGIES: NO KNOWN DRUG ALLERGIES. MEDICATIONS: Recorded in EHR and carefully reviewed SOCIAL HISTORY: The patient lives with his family. He does not report any smoking, drinking, or intravenous drug use. REVIEW OF SYSTEMS: Other than the above-mentioned, there are no other pertinent positives or pertinent negatives in a complete 14-point review of systems. PHYSICAL EXAMINATION: GENERAL: The patient appears to be a very pleasant gentleman of /[place] descent, appearing stated age, lying in bed comfortably and in no acute distress. BMI is 17.3 (previously 16.09 Jul 2016) VITAL SIGNS: AVSS (see EHR). HEENT: Normocephalic and atraumatic. Extraocular muscles and hearing are grossly intact bilaterally and symmetrically. Sclerae are nonicteric. Oral cavity is clear; oral mucosa appeared to be pink and moist. Dentition: fair to poor. NECK: Supple. There is no lymphadenopathy or JVD. There is no submental, submandibular or supraclavicular lymphadenopathy. CHEST: Rises symmetrically with each breath; patient is breathing comfortably. There are no audible wheezes, rales or rhonchi on the gross exam. HEART: Pulse is regular and palpable on the left wrist. Capillary refill was normal. Carotid pulses are palpable bilaterally and symmetrically in the neck. EXTREMITIES: Lower extremities contain no pitting edema around the ankles bilaterally and symmetrically. ABDOMEN: Soft, nondistended and nontender. His ostomy is pink and viable. There are very small amounts of fluids and gas within the ostomy bag. SKIN: Appears to be pink and feels warm to touch. NEUROLOGIC: Awake, alert, and follows commands appropriately. LABORATORY DATA: As above. IMAGING: CT scan abdomen and pelvis [facility] 01/13/2017 IMPRESSION: High-grade small bowel obstruction with transition point in the pelvis. Poorly defined infiltrative mass again noted in the region of the upper rectum. Now seen is an ill-defined fluid density structure extending anterior from the rectum with communication with the bladder concerning for entero-vesicular fistula. Left upper renal pole enhancing mass measuring 3.1 cm. Diffuse ascites. Small to moderate left pleural effusion with left lower lobe atelectasis. 07/25/16 CT abd/pelvis IMPRESSION: Unchanged pattern and severity of considerable fluid-filled small bowel dilatation compatible with small bowel obstruction. Infiltrative mass of the upper rectum. Mild right lower lobe bronchiolitis, unchanged. Previous admission to [facility] July 19-2016 imaging: Patient had a chest x-ray which demonstrated no active cardiopulmonary changes. He had an abdominal and pelvic CT on 07/18/2016 that demonstrated findings in keeping with small-bowel obstruction likely related to known rectal mass. The view of obstruction had progressed compared to the CT done on 06/07/2016. Partial colonic resection and left lower quadrant colostomy and ileocolic anastomosis was seen. No intra-abdominal loculated fluid collection or pneumoperitoneum was noted. He had aortic iliac atherosclerosis was noted. Mild patchy infiltrates in the right lung base were also noted. Note that I personally reviewed all the available and pertinent images and I agree in general with their overall reported findings. Consultation Date/Type/Reason Admit Date/Time Jan 13, 2017 at 14:51 Past Surgical History Past Surgical Hx: no surgical history Social History Smoking Status: Unknown if ever smoked Exam/Review of Systems Vital Signs Vitals Vital Signs Date Time Temp Pulse Resp B/P Pulse Ox O2 Delivery O2 Flow Rate FiO2 01/14/17 14:25 97.5 60 16 157/70 93 01/13/17 16:49 Room Air Intake and Output 01/13/17 01/13/17 01/14/17 15:00 23:00 07:00 Intake Total 0 ml 500 ml Output Total 2 ml Balance 0 ml 498 ml Results Result Diagram: 01/14/17 0540 01/14/17 0540 Results 24 hrs Laboratory Tests Test 01/14/17 05:40 White Blood Count 8.4 Red Blood Count 2.82 L Hemoglobin 6.9 *L Hematocrit 23.2 L Mean Corpuscular Volume 82.3 Mean Corpuscular Hemoglobin 24.5 L Mean Corpuscular Hemoglobin Concent 29.7 L Red Cell Distribution Width 17.2 H Platelet Count 445 H Mean Platelet Volume 8.9 Neutrophils % 82.0 H Lymphocytes % 8.2 L Monocytes % 8.1 Eosinophils % 0.9 Basophils % 0.2 Nucleated Red Blood Cells % 0.0 Neutrophils # 6.9 Lymphocytes # 0.7 L Monocytes # 0.7 Eosinophils # 0.1 Basophils # 0.0 Nucleated Red Blood Cells # 0.0 Pathologist Review (Hematology) YES Sodium Level 143 Potassium Level 3.4 L Chloride Level 107 Carbon Dioxide Level 28 Anion Gap 11 Blood Urea Nitrogen 15 Creatinine 0.75 Glucose Level 87 Calcium Level 7.9 L Magnesium Level 1.7 Total Bilirubin 0.1 L Direct Bilirubin 0.00 Indirect Bilirubin 0.1 Aspartate Amino Transf (AST/SGOT) 11 L Alanine Aminotransferase (ALT/SGPT) 18 Alkaline Phosphatase 92 Total Protein 5.3 L Albumin 2.5 L Globulin 2.80 Albumin/Globulin Ratio 0.89 Medications Medications Current Medications Ondansetron HCl (Zofran Inj) 4 mg Q4H PRN IV NAUSEA AND/OR VOMITING Last administered on 01/13/17 17:55; Admin Dose 4 MG; Start 01/13/17 at 18:00 Pantoprazole (Protonix Iv) 40 mg DAILY@06 IV Last administered on 01/14/17 05 :01; Admin Dose 40 MG; Start 01/14/17 at 06:00 Hydromorphone HCl 2 mg 2 mg Q4H PRN IV PAIN Last administered on 01/14/17 17: 04; Admin Dose 2 MG; Start 01/13/17 at 21:00 Ceftriaxone Sodium 50 ml @ 100 mls/hr Q24H IVPB Last administered on 08:17; Admin Dose 100 MLS/HR; Start 01/14/17 at 08:00 Potassium Chloride/Dextrose/ Sod Cl (D5-1/2ns + KCl 40 Meq) 1,000 ml @ 75 mls/ hr [id number] IV Last administered on 01/14/17 09:07; Admin Dose 75 MLS/HR; Start 01/14/17 at 08:00 Lorazepam (Ativan) 0.5 mg Q6H PRN IV anxiety; Start 01/14/17 at 08:30 DIVINE BEY M.D. Jan 14, 2017 19:08
[2017-01-14 20:05] VITALS: BP 129/60; RESP 16
--- NOTE | 2017-01-14 22:03 | CONS ---
DATE OF ADMISSION: 01/13/2017 DATE OF CONSULTATION: 01/14/2017 REQUESTING PHYSICIAN: Dr. Harris. Dear Dr. Harris: Thank you for asking me to see this patient in urological consultation. He is known to me from his prior admission. HISTORY OF PRESENT ILLNESS: He is a 66-year-old male with history of colorectal cancer who underwen t surgery for that and had resection and ileostomy. Has had multiple admissions to the hospital bec ause of bowel obstruction. The patient now presented to the hospital because of nausea, vomiting, v laci poor intake and no output from the ileostomy. There is also some increase in swelling of his pe nis, scrotum and lower extremities. The patient also has had abdominal pain and purulent discharge from his urethra and occasional bloody urine. He did have that blood in the urine on and off also d uring last admission. The patient underwent a CT scan of the abdomen and pelvis and that did show p ossible colorectal fistula with a mass behind the bladder, most likely a tumor. PAST MEDICAL HISTORY: As above. MEDICATIONS: The patient's home medications included: 1. [place]. 2. Lasix. 3. Potassium. SOCIAL HISTORY: The patient does not smoke, does not drink any alcohol. ALLERGIES: HE HAS NO KNOWN DRUG ALLERGIES. PHYSICAL EXAMINATION: GENERAL: Reveals an elderly male who is awake, alert. VITAL SIGNS: His temperature is 98.0, pulse is 68, respiration 16, blood pressure 129/60. NECK: Supple. CHEST: Free air circulation and no wheezing. ABDOMEN: He does have a colostomy and scars from prior surgeries. GENITOURINARY: The patient does have pubic edema as well as penoscrotal edema. EXTREMITIES: Very significant edema of both lower extremities. LABORATORY DATA: His CBC shows a white count of 8.4, hemoglobin 6.9, hematocrit 23.2. BUN is 15, c reatinine 0.75, sodium 143, potassium 3.4, chloride 107, CO2 28. PT is 14.4, PTT 33.9, INR 1.12. T he patient's CT scan of the abdomen and pelvis that was done yesterday was reported as: 1. High-grade small-bowel obstruction with transition point in the pelvis. 2. There is a poorly-defined infiltrative mass again noted in the region of the upper rectum. Now seen is in an ill-defined fluid density structure extending anterior from the rectum with communicat ion with the bladder, concerning for enterovesical fistula. Also, there is a left upper renal pole enhancing mass measuring 3.1 cm. There is diffuse ascites and small to moderate left pleural effusi on with left lower lobe atelectasis. IMPRESSION: The patient does have a history of colorectal cancer status post surgery. The patient still has a tumor, and he may have enterovesical fistula. He does have hematuria that could be rela partha to infection or the fistula itself, and there is invasion of the tumor into the bladder. The re commendation at the present would be to send urine for culture and sensitivity and he has had pallia tive surgery and basically, we shall treat him conservatively. I do not think any surgical interven tion would be beneficial. He already has the colostomy and the bowel is diverted, and if he does pa ss any air or stool and that becomes more symptomatic, then we will have to treat the infectio n. As far as the scrotal edema and penile edema, it is part of the generalized edema that he has of the lower extremities. Therefore, we shall keep the scrotum elevated on a towel all of the time. Dictated By: TATIANA JACOB MD BB/KEVIN Conf#: [id number] DID#: [id number] CC: JM HARRIS MD;*EndCC*
[2017-01-15] MEDS: ONDANSETRON 4 MG INJ IV PRN ×2 (01:04→17:57)
[2017-01-15] MEDS: HYDROmorphONE 2 MG/ML SYG IV PRN ×5 (01:11→20:25)
[2017-01-15 02:25] VITALS: BP 156/70; RESP 16
[2017-01-15] MEDS: PANTOPRAZOLE 40 MG INJ IV SCH (05:41)
[2017-01-15 06:17] LABS: BASOPHILS % 0.2 % (0.0-2.0); EOSINOPHILS % 0.3 % (0.0-7.0); HEMATOCRIT 29.8 % (42.0-52.0); HEMOGLOBIN 9.3 g/dl (14.0-18.0); LYMPHOCYTES # 0.8 10^3/ul (0.8-2.9); LYMPHOCYTES % 7.4 % (15.0-51.0); MEAN CORPUSCULAR HEMOGLOBIN 25.8 pg (29.0-33.0); MEAN CORPUSCULAR HGB CONC 31.2 g/dl (32.0-37.0); MEAN CORPUSCULAR VOLUME 82.5 fl (82.0-101.0); MEAN PLATELET VOLUME 8.8 fl (7.4-10.4); MONOCYTE # 0.7 10^3/ul (0.3-0.9); MONOCYTES % 6.2 % (0.0-11.0); NEUTROPHIL # 8.9 10^3/ul (1.6-7.5); NEUTROPHILS % 85.4 % (39.0-77.0); PLATELET COUNT 449 10^3/UL (140-415); RED BLOOD COUNT 3.61 10^6/ul (4.70-6.10); RED CELL DISTRIBUTION WIDTH 16.2 % (11.5-14.5); WHITE BLOOD COUNT 10.5 10^3/ul (4.8-10.8)
[2017-01-15 06:37] LABS: CALCIUM 8.1 mg/dl (8.4-10.2); CREATININE 0.67 mg/dl (0.61-1.24); MAGNESIUM 2.4 mg/dl (1.7-2.5); POTASSIUM 3.9 mmol/L (3.5-5.1)
[2017-01-15 07:45] VITALS: BP 144/65; RESP 16
[2017-01-15] MEDS: CEFTRIAXONE 1 GM/50 ML (PMX) 50 ML IVPB SCH (07:45)
--- NOTE | 2017-01-15 10:43 | PN ---
DATE: 01/15/2017 SUBJECTIVE: The patient overall feels better. Denies any nausea, decreased abdominal pain. Colost johnny has some hard stool. PHYSICAL EXAMINATION GENERAL: The patient is awake, alert. VITAL SIGNS: Temperature 97.8, blood pressure 144/65, O2 saturations 98%. CHEST: Clinically clear. HEART: S1, S2 with no definite gallops. ABDOMEN: Not distended. Bowel sounds hypoactive. Colostomy with some hard stool noted. EXTREMITIES: Decreased edema. Amando's negative. LABORATORY DATA: WBC count 10.5, hematocrit 29.8, status post 2 units of packed red blood cells, po tassium 3.8, magnesium 2.4. IMPRESSION: Dr. Marks's gastroenterology consultation, Dr. Juárez's surgical consultation and Dr. Zapien's oncology consultation is greatly appreciated. 1. Stage IV rectal cancer with high-grade small-bowel obstruction with slow clinical improvement. 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 3. Severe hypoalbuminemia with third spacing. 4. Hypomagnesemia, resolved. PLAN: Will start the patient on clear liquids, start the patient on magnesium citrate p.o., recheck labs in a.m. Recommendations of Dr. Marks, Dr. Juárez and Dr. Zapien will be followed. Dictated By: JM HARRIS MD, SR/KEVIN Conf#: [id number] DID#: [id number]
[2017-01-15] MEDS: D5W-0.45 NACL + KCL 40 MEQ 1,000 ML IV SCH (11:05)
[2017-01-15] MEDS ORDERED: MAGNESIUM CITRATE 300 ML BTL PO SCH (11:30)
[2017-01-15] MEDS: DOCUSATE SODIUM 10 MG/ML (10ML CUP) PO SCH ×2 (11:46→20:24)
--- NOTE | 2017-01-15 12:04 | CONS ---
Date/Time of Note Date/Time of Note DATE: 01/15/17 TIME: 12:03 Assessment/Plan Assessment/Plan Chief Complaint/Hosp Course RECTAL CANCER locally advanced on presentation, s/t chemo/XRT, following by surgery and currently on adjuvant component of chemo ( FLOX) small-bowel obstruction.- RECURRENT CHEMO ON HOLD CLEAR LIQUID PAIN CONTROL SURG F-UP Enterovesical fistula with likely infection of the system. History of hypertension. History of nephrolithiasis. Severe hypoalbuminemia with third spacing. Mild hyponatremia. Problems: Consultation Date/Type/Reason Admit Date/Time Jan 13, 2017 at 14:51 Initial Consult Date 01/14/17 [facility] Referring Provider: JM HARRIS MD 24 HR Interval Summary Free Text/Dictation ALL NOTED ON CLEAR LIQUID TODAY Exam/Review of Systems Vital Signs Vitals Vital Signs Date Time Temp Pulse Resp B/P Pulse Ox O2 Delivery O2 Flow Rate FiO2 01/15/17 07:45 97.8 71 16 144/65 98 01/13/17 16:49 Room Air Intake and Output 01/14/17 01/14/17 01/15/17 15:00 23:00 07:00 Intake Total 500 ml 866.009 ml 0 ml Balance 500 ml 866.009 ml 0 ml Exam GENERAL: The patient is awake, alert. HEENT: Normocephalic, severe pallor without cyanosis. Tongue is coated, dry. NECK: Supple. No thyromegaly, or bruits, lymphadenopathy. LUNGS: Clinically clear. ABDOMEN: Soft, bowel sounds very hypoactive. EXTREMITIES: 2+ edema. Homans negative. Results Result Diagram: 01/15/17 0511 01/15/17 0511 Results 24 hrs Laboratory Tests Test 01/15/17 05:11 01/15/17 05:38 White Blood Count 10.5 # Red Blood Count 3.61 #L Hemoglobin 9.3 #L Hematocrit 29.8 #L Mean Corpuscular Volume 82.5 Mean Corpuscular Hemoglobin 25.8 L Mean Corpuscular Hemoglobin Concent 31.2 L Red Cell Distribution Width 16.2 H Platelet Count 449 H Mean Platelet Volume 8.8 Neutrophils % 85.4 H Lymphocytes % 7.4 L Monocytes % 6.2 Eosinophils % 0.3 Basophils % 0.2 Nucleated Red Blood Cells % 0.0 Neutrophils # 8.9 H Lymphocytes # 0.8 Monocytes # 0.7 Eosinophils # 0.0 Basophils # 0.0 Nucleated Red Blood Cells # 0.0 Sodium Level 141 Potassium Level 3.9 Chloride Level 106 Carbon Dioxide Level 28 Anion Gap 11 Blood Urea Nitrogen 16 Creatinine 0.67 Glucose Level 74 Calcium Level 8.1 L Magnesium Level 2.4 Lab Scanned Report BLOOD TRANSFUSION Medications Medications Current Medications Ondansetron HCl (Zofran Inj) 4 mg Q4H PRN IV NAUSEA AND/OR VOMITING Last administered on 01/15/17 01:04; Admin Dose 4 MG; Start 01/13/17 at 18:00 Pantoprazole (Protonix Iv) 40 mg DAILY@06 IV Last administered on 01/15/17 05 :41; Admin Dose 40 MG; Start 01/14/17 at 06:00 Hydromorphone HCl 2 mg 2 mg Q4H PRN IV PAIN Last administered on 01/15/17 09: 17; Admin Dose 2 MG; Start 01/13/17 at 21:00 Ceftriaxone Sodium 50 ml @ 100 mls/hr Q24H IVPB Last administered on 07:45; Admin Dose 100 MLS/HR; Start 01/14/17 at 08:00 Potassium Chloride/Dextrose/ Sod Cl (D5-1/2ns + KCl 40 Meq) 1,000 ml @ 75 mls/ hr [id number] IV Last administered on 01/15/17 11:05; Admin Dose 75 MLS/HR; Start 01/14/17 at 08:00 Lorazepam (Ativan) 0.5 mg Q6H PRN IV anxiety; Start 01/14/17 at 08:30 Magnesium Citrate (Citroma) 300 ml ONCE PO Last administered on 01/15/17 11: 46; Admin Dose 300 ML; Start 01/15/17 at 11:30; Stop 01/15/17 at 13:00 Docusate Sodium (Colace Liquid Cup) 100 mg BID PO Last administered on 11:46; Admin Dose 100 MG; Start 01/15/17 at 12:00 JASMINA PALOMARES MD Jan 15, 2017 12:04
--- NOTE | 2017-01-15 18:44 | PN ---
Date/Time of Note Date/Time of Note DATE: 01/15/17 TIME: 18:44 Assessment/Plan Lines/Catheters [facility] Per[facility] IV Coates in Place [facility] No Assessment/Plan Assessment/Plan [facility] Progress Note Date of Service: 01/15/2017 Location of Service: [facility] Second floor [facility] Today's Assessment & Plan: Overall stable and appears improved. Started passing stool into his ostomy bag. Abdomen remains benign. We were hoping that this will continue to evolve into resolution of his bowel obstruction. No indication for acute surgical intervention. Awaiting further return of bowel function. With above assessment, I've recommended the following for today: 1. Continue current nonoperative management 2. I will continue to follow closely with you 3. Start advancing diet as tolerated Thank you again for your great care of this very pleasant patient and wonderful family. If there are any questions, please feel free to call me at [phone]. Nature of presenting problem: High severity Please note that, given the multiple number of diagnoses or management options, the extensive amount and/or complexity of data needed to be reviewed, and I risk of complications and/or morbidity or mortality, this qualifies as high complexity type of decision-making. Disclaimers: 1. Inadvertent spelling and grammatical errors are likely due to electronic health record (EHR)/dictation software used and do not reflect on the quality of delivered patient care. 2. The electronic timestamp recorded on this note does not necessarily reflect the actual date and time of the visit or the service. 3. Portions of this note may have been created through electronic templates and computer algorithms that might bring in information either from the system or from other physicians and providers. Please note that such information may or may not contain errors, the occurrence of which are outside of my control. In general (but not always) this happens either in the beginning or at the end of the note. The portion of the note that I have created are generally done in 1 continuous block of text, flanked at the beginning and at the end by " ", and entered into one field in the EHR. 4. There may be other unanticipated errors in the note that are outside of my control. I can only attest to the portions of the note that I have created. Updated Clinical Summary: The patient is a very pleasant 66-year-old gentleman with comorbidities including hypertension, who was initially admitted to [facility] through ED on 2015 with signs and symptoms consistent with anemia that eventually was shown to be a large, nearly obstructing mass approximately 12 cm from the anal verge up to the area of the rectosigmoid junction on colonoscopy 06/07/2015. Plan at that time was neoadjuvant treatment with chemoradiation followed by restaging and surgical resection. Patient underwent radiation therapy (Dr. Aranda) that ended September 2015 (patient's recollection was November 2015). Discussions with multiple colleagues revealed evidence that the patient had been not following instructions and there were barriers to get the patient to surgical intervention. At least part of the barriers were due to patient factors alone. Patient reported having contacted my office approximately 5 times to try and make an appointment and was told that we "do not accept" his insurance. Careful review of office records showed no documentation of patient calling. Patient also believed that he had had [employer] as his insurance carrier, but his insurance carrier was [employer] (accepted by our program). Patient re-presented to [facility] through ED with constipation, vomiting, abdominal distension and dilated loops of small intestine on 04/01/16. Significant comorbidities included not insignificant malnutrition with BMI 15.8 and dehydration, albumin of 3.6 in the setting of inability to feed enterically. Small area of liver in segment 6 and two very small areas in segment 4a of questionable significance (too small to tell) benign path vs. metastatic disease. We attempted to treat the bowel obstruction with nonoperative management with the hope that the patient would be able to increase his oral intake and improve his nutritional status prior to potentially getting systemic chemotherapy in the neoadjuvant fashion before surgical intervention. Patient very clearly showed us that his bowels were not able to tolerate any meaningful amount of nutritional intake after a few days of this management and for this reason, and after a multidisciplinary discussion, we decided to change our treatment strategy and take the patient to the operating room. + BM 07/21/16. List of operative interventions on 04/12/16: 1. Laparoscopic exploration converted to open exploration 2. Partial colectomy with removal of upper part of rectum and sigmoid colon ( modifier 22) 3. Resection of the end of terminal ileum along with cecum with primary anastomosis 4. Performance of an colostomy using distal descending colon 5. Extensive lysis of adhesions (at least 60 minutes) 6. Intraoperative ultrasound of the liver 7. Abdominal lavage D/c home 04/23/16. Two visits to ED for constipation 06/07 and 06/11/16. Readmitted after a few ED visits in June and July 2016 though ED to [facility] on 07/19/16 with UTI and perhaps partial SBO. Treated non-operatively successfully with treatment of UTI and resolution of partial SBO; d/c home 07/22/16. Readmitted for similar complaints, but was managed nonoperatively. Comorbidities: 1. Rectal malignancy, s/p chemotherapy and radiation June to Nov 2015; obstruction end of terminal ileum as well as at the level of the rectosigmoid junction with aggressive locally advanced rectal cancer; S/p an otherwise uncomplicated but challenging resection of both involved portions of rectosigmoid as well as terminal ileum in the setting of aggressive rectal cancer with local invasion of the pelvis on 04/13/16. 2. Hypertension 3. Cachexia; BMI 17.3 (previously 15.08 Jul 2016); albumin of 2.5 (previously 3.06 Jul 2016) in the setting of inability to feed enterically 4. Colonoscopy June 2015 5. Anxiety 6. Multiple visits to ED and admissions to hospital through July 2016 Subjective: No major events or complaints; no major abd pain and under control with medications; no n/v/d; no sob or cp; [ + bowel activity; + activity Objective: Vitals: See below Exam: GENERAL: On exam, the patient was standing up in his room and appeared to be comfortable and in no acute distress. ABDOMEN: Soft, nontender and nondistended. Ostomy was viable and there was stool in the bag. There are no peritoneal signs or guarding. SKIN: Skin appears to be pink and feels warm to touch. NEUROLOGIC: Patient is awake, alert, and follows commands appropriately. Exam/Review of Systems Vital Signs Vitals Vital Signs Date Time Temp Pulse Resp B/P Pulse Ox O2 Delivery O2 Flow Rate FiO2 01/15/17 07:45 97.8 71 16 144/65 98 01/13/17 16:49 Room Air Intake and Output 01/14/17 01/14/17 01/15/17 15:00 23:00 07:00 Intake Total 500 ml 866.009 ml 0 ml Balance 500 ml 866.009 ml 0 ml Results Result Diagram: 01/15/17 0511 01/15/17 0511 DIVINE BEY M.D. Jan 15, 2017 18:44
--- NOTE | 2017-01-15 19:25 | CONS ---
Date/Time of Note Date/Time of Note DATE: 01/15/17 TIME: 19:21 Consult Date/Type/Reason Admit Date/Time Jan 13, 2017 at 14:51 Initial Consult Date 01/14/17 Type of Consultation: Urology Reason for Consultation Enterovesical fistula and urinary tract infection Ordering Provider: JM HARRIS MD Subjective Patient complains of dysuria,at the present he also has hiccups. He said his bowels have moved already Objective Vital Signs Date Time Temp Pulse Resp B/P Pulse Ox O2 Delivery O2 Flow Rate FiO2 01/15/17 07:45 97.8 71 16 144/65 98 01/13/17 16:49 Room Air Intake and Output 01/14/17 01/14/17 01/15/17 14:59 22:59 06:59 Intake Total 500 ml 866.009 ml 0 ml Balance 500 ml 866.009 ml 0 ml Exam The abdomen is not distended, his urine culture did show 100,000 gram-negative rods. He is already on ceftriaxone 1 g every day. Results/Medications Result Diagram: 01/15/17 0511 01/15/17 0511 Results 24 hrs Laboratory Tests Test 01/15/17 05:11 01/15/17 05:38 White Blood Count 10.5 # Red Blood Count 3.61 #L Hemoglobin 9.3 #L Hematocrit 29.8 #L Mean Corpuscular Volume 82.5 Mean Corpuscular Hemoglobin 25.8 L Mean Corpuscular Hemoglobin Concent 31.2 L Red Cell Distribution Width 16.2 H Platelet Count 449 H Mean Platelet Volume 8.8 Neutrophils % 85.4 H Lymphocytes % 7.4 L Monocytes % 6.2 Eosinophils % 0.3 Basophils % 0.2 Nucleated Red Blood Cells % 0.0 Neutrophils # 8.9 H Lymphocytes # 0.8 Monocytes # 0.7 Eosinophils # 0.0 Basophils # 0.0 Nucleated Red Blood Cells # 0.0 Sodium Level 141 Potassium Level 3.9 Chloride Level 106 Carbon Dioxide Level 28 Anion Gap 11 Blood Urea Nitrogen 16 Creatinine 0.67 Glucose Level 74 Calcium Level 8.1 L Magnesium Level 2.4 Lab Scanned Report BLOOD TRANSFUSION Medications Current Medications Ondansetron HCl (Zofran Inj) 4 mg Q4H PRN IV NAUSEA AND/OR VOMITING Last administered on 01/15/17t 17:57; Admin Dose 4 MG; Start 01/13/17 at 18:00 Pantoprazole (Protonix Iv) 40 mg DAILY@06 IV Last administered on 01/15/17 05 :41; Admin Dose 40 MG; Start 01/14/17 at 06:00 Hydromorphone HCl 2 mg 2 mg Q4H PRN IV PAIN Last administered on 01/15/17 16: 12; Admin Dose 2 MG; Start 01/13/17 at 21:00 Ceftriaxone Sodium 50 ml @ 100 mls/hr Q24H IVPB Last administered on 07:45; Admin Dose 100 MLS/HR; Start 01/14/17 at 08:00 Potassium Chloride/Dextrose/ Sod Cl (D5-1/2ns + KCl 40 Meq) 1,000 ml @ 75 mls/ hr [id number] IV Last administered on 01/15/17 11:05; Admin Dose 75 MLS/HR; Start 01/14/17 at 08:00 Lorazepam (Ativan) 0.5 mg Q6H PRN IV anxiety; Start 01/14/17 at 08:30 Docusate Sodium (Colace Liquid Cup) 100 mg BID PO Last administered on 11:46; Admin Dose 100 MG; Start 01/15/17 at 12:00 Assessment/Plan Chief Complaint/Hosp Course 66-year-old male with history of colorectal cancer, has a colostomy and still have cancer in the perirectal area and pelvic mass and 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 I am not sure the patient realizes how much advanced his cancer is we are asked me how can we get the read of the infection. I explained to him the infection is because of the colovesical fistula and as long as the fistula exist he will have infections and the treatment of the fistula is to have that part of the colon resected and from the bladder which basically means have a major operation if it is feasible but it does not look it was resectable thus why he had the colostomy. We will have to treat him symptomatically and if there is any hope with the chemotherapy he will discuss it was Dr. Campa Problems: TATIANA JACOB MD Jan 15, 2017 19:25
[2017-01-15 21:35] VITALS: BP 156/64; RESP 16
[2017-01-16] MEDS: HYDROmorphONE 2 MG/ML SYG IV PRN ×6 (00:22→20:32)
[2017-01-16] MEDS: ONDANSETRON 4 MG INJ IV PRN (00:51)
[2017-01-16 02:58] VITALS: BP 167/72; RESP 16
[2017-01-16] MEDS: PANTOPRAZOLE 40 MG INJ IV SCH (05:34)
[2017-01-16] MEDS: D5W-0.45 NACL + KCL 40 MEQ 1,000 ML IV SCH ×3 (05:34→17:36)
[2017-01-16 05:39] LABS: BASOPHILS % 0.2 % (0.0-2.0); EOSINOPHILS # 0.1 10^3/ul (0.0-0.5); EOSINOPHILS % 0.6 % (0.0-7.0); HEMATOCRIT 30.1 % (42.0-52.0); HEMOGLOBIN 9.3 g/dl (14.0-18.0); LYMPHOCYTES # 0.7 10^3/ul (0.8-2.9); LYMPHOCYTES % 8.4 % (15.0-51.0); MEAN CORPUSCULAR HEMOGLOBIN 25.7 pg (29.0-33.0); MEAN CORPUSCULAR HGB CONC 30.9 g/dl (32.0-37.0); MEAN CORPUSCULAR VOLUME 83.1 fl (82.0-101.0); MEAN PLATELET VOLUME 9.2 fl (7.4-10.4); MONOCYTE # 0.6 10^3/ul (0.3-0.9); MONOCYTES % 6.3 % (0.0-11.0); NEUTROPHIL # 7.4 10^3/ul (1.6-7.5); NEUTROPHILS % 83.9 % (39.0-77.0); PLATELET COUNT 383 10^3/UL (140-415); RED BLOOD COUNT 3.62 10^6/ul (4.70-6.10); RED CELL DISTRIBUTION WIDTH 16.7 % (11.5-14.5); WHITE BLOOD COUNT 8.9 10^3/ul (4.8-10.8)
[2017-01-16 06:36] LABS: CALCIUM 7.9 mg/dl (8.4-10.2); CREATININE 0.69 mg/dl (0.61-1.24); MAGNESIUM 2.2 mg/dl (1.7-2.5); POTASSIUM 3.6 mmol/L (3.5-5.1)
[2017-01-16 07:35] VITALS: BP 169/74; RESP 18
[2017-01-16] MEDS: DOCUSATE SODIUM 10 MG/ML (10ML CUP) PO SCH ×2 (08:14→20:32)
[2017-01-16] MEDS: CEFTRIAXONE 1 GM/50 ML (PMX) 50 ML IVPB SCH (08:14)
[2017-01-16] MEDS ORDERED: POTASSIUM CHLORIDE (SR) 10 MEQ TAB PO ONE (13:00)
[2017-01-16] MEDS ORDERED: MAGNESIUM CITRATE 300 ML BTL PO ONE (13:00)
[2017-01-16] MEDS ORDERED: FUROSEMIDE 20 MG INJ IV ONE (13:00)
[2017-01-16 14:15] VITALS: BP 144/68; RESP 18
--- NOTE | 2017-01-16 16:50 | PN ---
Date/Time of Note Date/Time of Note DATE: 01/16/17 TIME: 16:49 Assessment/Plan Lines/Catheters IV Catheter Type (from [facility]): Peripheral IV Coates in Place (from [facility]): No Assessment/Plan Assessment/Plan [facility] Progress Note Date of Service: 01/16/2017 Location of Service: [facility] Second floor [facility] Today's Assessment & Plan: Overall stable and appears improved but with a waxing and waning coarse. Currently, we need to scale back on the advancement since the patient is showing signs of slowed down bowel activity. Abdomen remains benign. We were hoping that this will continue to evolve into resolution of his bowel obstruction. No indication for acute surgical intervention. Awaiting further return of bowel function. With above assessment, I've recommended the following for today: 1. Continue current nonoperative management 2. Continue clear liquid diet for now 3. Labs in a.m. Thank you again for your great care of this very pleasant patient and wonderful family. If there are any questions, please feel free to call me at [phone]. Nature of presenting problem: High severity Please note that, given the multiple number of diagnoses or management options, the extensive amount and/or complexity of data needed to be reviewed, and I risk of complications and/or morbidity or mortality, this qualifies as high complexity type of decision-making. Disclaimers: 1. Inadvertent spelling and grammatical errors are likely due to electronic health record (EHR)/dictation software used and do not reflect on the quality of delivered patient care. 2. The electronic timestamp recorded on this note does not necessarily reflect the actual date and time of the visit or the service. 3. Portions of this note may have been created through electronic templates and computer algorithms that might bring in information either from the system or from other physicians and providers. Please note that such information may or may not contain errors, the occurrence of which are outside of my control. In general (but not always) this happens either in the beginning or at the end of the note. The portion of the note that I have created are generally done in 1 continuous block of text, flanked at the beginning and at the end by " ", and entered into one field in the EHR. 4. There may be other unanticipated errors in the note that are outside of my control. I can only attest to the portions of the note that I have created. Updated Clinical Summary: The patient is a very pleasant 66-year-old gentleman with comorbidities including hypertension, who was initially admitted to [facility] through ED on 2015 with signs and symptoms consistent with anemia that eventually was shown to be a large, nearly obstructing mass approximately 12 cm from the anal verge up to the area of the rectosigmoid junction on colonoscopy 06/07/2015. Plan at that time was neoadjuvant treatment with chemoradiation followed by restaging and surgical resection. Patient underwent radiation therapy (Dr. Aranda) that ended September 2015 (patient's recollection was November 2015). Discussions with multiple colleagues revealed evidence that the patient had been not following instructions and there were barriers to get the patient to surgical intervention. At least part of the barriers were due to patient factors alone. Patient reported having contacted my office approximately 5 times to try and make an appointment and was told that we "do not accept" his insurance. Careful review of office records showed no documentation of patient calling. Patient also believed that he had had [employer] as his insurance carrier, but his insurance carrier was [employer] (accepted by our program). Patient re-presented to [facility] through ED with constipation, vomiting, abdominal distension and dilated loops of small intestine on 04/01/16. Significant comorbidities included not insignificant malnutrition with BMI 15.8 and dehydration, albumin of 3.6 in the setting of inability to feed enterically. Small area of liver in segment 6 and two very small areas in segment 4a of questionable significance (too small to tell) benign path vs. metastatic disease. We attempted to treat the bowel obstruction with nonoperative management with the hope that the patient would be able to increase his oral intake and improve his nutritional status prior to potentially getting systemic chemotherapy in the neoadjuvant fashion before surgical intervention. Patient very clearly showed us that his bowels were not able to tolerate any meaningful amount of nutritional intake after a few days of this management and for this reason, and after a multidisciplinary discussion, we decided to change our treatment strategy and take the patient to the operating room. + BM 07/21/16. List of operative interventions on 04/12/16: 1. Laparoscopic exploration converted to open exploration 2. Partial colectomy with removal of upper part of rectum and sigmoid colon ( modifier 22) 3. Resection of the end of terminal ileum along with cecum with primary anastomosis 4. Performance of an colostomy using distal descending colon 5. Extensive lysis of adhesions (at least 60 minutes) 6. Intraoperative ultrasound of the liver 7. Abdominal lavage D/c home 04/23/16. Two visits to ED for constipation 06/07 and 06/11/16. Readmitted after a few ED visits in June and July 2016 though ED to [facility] on 07/19/16 with UTI and perhaps partial SBO. Treated non-operatively successfully with treatment of UTI and resolution of partial SBO; d/c home 07/22/16. Readmitted for similar complaints, but was managed nonoperatively. Comorbidities: 1. Rectal malignancy, s/p chemotherapy and radiation June to Nov 2015; obstruction end of terminal ileum as well as at the level of the rectosigmoid junction with aggressive locally advanced rectal cancer; S/p an otherwise uncomplicated but challenging resection of both involved portions of rectosigmoid as well as terminal ileum in the setting of aggressive rectal cancer with local invasion of the pelvis on 04/13/16. 2. Hypertension 3. Cachexia; BMI 17.3 (previously 15.08 Jul 2016); albumin of 2.5 (previously 3.06 Jul 2016) in the setting of inability to feed enterically 4. Colonoscopy June 2015 5. Anxiety 6. Multiple visits to ED and admissions to hospital through July 2016 Subjective: No major events or complaints; no major abd pain and under control with medications; no n/v/d; no sob or cp; + bowel activity, but less than yesterday; + activity; still with hiccups which seem a bit worse today compared to yesterday Objective: Vitals: See below Exam: GENERAL: On exam, the patient was standing up in his room and appeared to be comfortable and in no acute distress. ABDOMEN: Soft, nontender and nondistended. Ostomy was viable and there was minimal stool in the bag. Mild edema of the ostomy noted. There are no peritoneal signs or guarding. SKIN: Skin appears to be pink and feels warm to touch. NEUROLOGIC: Patient is awake, alert, and follows commands appropriately. Exam/Review of Systems Vital Signs Vitals Vital Signs Date Time Temp Pulse Resp B/P Pulse Ox O2 Delivery O2 Flow Rate FiO2 01/16/17 14:15 97.8 61 18 144/68 94 01/13/17 16:49 Room Air Intake and Output 01/15/17 01/15/17 01/16/17 15:00 23:00 07:00 Intake Total 1200 ml 400 ml 1550 ml Balance 1200 ml 400 ml 1550 ml Results Result Diagram: 01/16/17 0453 01/16/17 0453 DIVINE BEY M.D. Jan 16, 2017 16:50
--- NOTE | 2017-01-16 17:10 | CONS ---
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 History of hypertension. History of nephrolithiasis. Severe hypoalbuminemia with third spacing. Mild hyponatremia. Problems: Consultation Date/Type/Reason Admit Date/Time Jan 13, 2017 at 14:51 Initial Consult Date 01/14/17 [facility] Referring Provider: JM HARRIS MD 24 HR Interval Summary Free Text/Dictation ALL NOTED NO NEW EVENTS Awaiting return of bowel function. Exam/Review of Systems Vital Signs Vitals Vital Signs Date Time Temp Pulse Resp B/P Pulse Ox O2 Delivery O2 Flow Rate FiO2 01/16/17 14:15 97.8 61 18 144/68 94 01/13/17 16:49 Room Air Intake and Output 01/15/17 01/15/17 01/16/17 15:00 23:00 07:00 Intake Total 1200 ml 400 ml 1550 ml Balance 1200 ml 400 ml 1550 ml Exam GENERAL: The patient is awake, alert. HEENT: Normocephalic, severe pallor without cyanosis. Tongue is coated, dry. NECK: Supple. No thyromegaly, or bruits, lymphadenopathy. LUNGS: Clinically clear. ABDOMEN: Soft, bowel sounds very hypoactive. EXTREMITIES: 2+ edema. Homans negative. Results Result Diagram: 01/16/17 0453 01/16/17 0453 Results 24 hrs Laboratory Tests Test 01/16/17 04:53 White Blood Count 8.9 Red Blood Count 3.62 L Hemoglobin 9.3 L Hematocrit 30.1 L Mean Corpuscular Volume 83.1 Mean Corpuscular Hemoglobin 25.7 L Mean Corpuscular Hemoglobin Concent 30.9 L Red Cell Distribution Width 16.7 H Platelet Count 383 Mean Platelet Volume 9.2 Neutrophils % 83.9 H Lymphocytes % 8.4 L Monocytes % 6.3 Eosinophils % 0.6 Basophils % 0.2 Nucleated Red Blood Cells % 0.0 Neutrophils # 7.4 Lymphocytes # 0.7 L Monocytes # 0.6 Eosinophils # 0.1 Basophils # 0.0 Nucleated Red Blood Cells # 0.0 Sodium Level 140 Potassium Level 3.6 Chloride Level 109 Carbon Dioxide Level 29 Anion Gap 6 L Blood Urea Nitrogen 14 Creatinine 0.69 Glucose Level 87 Calcium Level 7.9 L Magnesium Level 2.2 Medications Medications Current Medications Ondansetron HCl (Zofran Inj) 4 mg Q4H PRN IV NAUSEA AND/OR VOMITING Last administered on 01/16/17 00:51; Admin Dose 4 MG; Start 01/13/17 at 18:00 Pantoprazole (Protonix Iv) 40 mg DAILY@06 IV Last administered on 01/16/17 05 :34; Admin Dose 40 MG; Start 01/14/17 at 06:00 Hydromorphone HCl 2 mg 2 mg Q4H PRN IV PAIN Last administered on 01/16/17 16: 19; Admin Dose 2 MG; Start 01/13/17 at 21:00 Ceftriaxone Sodium 50 ml @ 100 mls/hr Q24H IVPB Last administered on 08:14; Admin Dose 100 MLS/HR; Start 01/14/17 at 08:00 Potassium Chloride/Dextrose/ Sod Cl (D5-1/2ns + KCl 40 Meq) 1,000 ml @ 50 mls/ hr Q20H IV Last administered on 01/16/17 05:34; Admin Dose 75 MLS/HR; Start 01/14/17 at 08:00 Lorazepam (Ativan) 0.5 mg Q6H PRN IV anxiety; Start 01/14/17 at 08:30 Docusate Sodium (Colace Liquid Cup) 100 mg BID PO Last administered on 08:14; Admin Dose 100 MG; Start 01/15/17 at 12:00 JASMINA PALOMARES MD Jan 16, 2017 17:10
--- NOTE | 2017-01-16 18:51 | CONS ---
Date/Time of Note Date/Time of Note DATE: 01/16/17 TIME: 18:38 Consult Date/Type/Reason Admit Date/Time Jan 13, 2017 at 14:51 Initial Consult Date 01/14/17 Type of Consultation: Urology Reason for Consultation Enterovesical fistula Ordering Provider: JM HARRIS MD Subjective Patient states that he is feeling better, his urine is clear, he still however has some blood in it and some mucus and sediment. Objective Vital Signs Date Time Temp Pulse Resp B/P Pulse Ox O2 Delivery O2 Flow Rate FiO2 01/16/17 14:15 97.8 61 18 144/68 94 01/13/17 16:49 Room Air Intake and Output 01/15/17 01/15/17 01/16/17 15:00 23:00 07:00 Intake Total 1200 ml 400 ml 1550 ml Balance 1200 ml 400 ml 1550 ml Results/Medications Result Diagram: 01/16/17 0453 01/16/17 0453 Results 24 hrs Laboratory Tests Test 01/16/17 04:53 White Blood Count 8.9 Red Blood Count 3.62 L Hemoglobin 9.3 L Hematocrit 30.1 L Mean Corpuscular Volume 83.1 Mean Corpuscular Hemoglobin 25.7 L Mean Corpuscular Hemoglobin Concent 30.9 L Red Cell Distribution Width 16.7 H Platelet Count 383 Mean Platelet Volume 9.2 Neutrophils % 83.9 H Lymphocytes % 8.4 L Monocytes % 6.3 Eosinophils % 0.6 Basophils % 0.2 Nucleated Red Blood Cells % 0.0 Neutrophils # 7.4 Lymphocytes # 0.7 L Monocytes # 0.6 Eosinophils # 0.1 Basophils # 0.0 Nucleated Red Blood Cells # 0.0 Sodium Level 140 Potassium Level 3.6 Chloride Level 109 Carbon Dioxide Level 29 Anion Gap 6 L Blood Urea Nitrogen 14 Creatinine 0.69 Glucose Level 87 Calcium Level 7.9 L Magnesium Level 2.2 Medications Current Medications Ondansetron HCl (Zofran Inj) 4 mg Q4H PRN IV NAUSEA AND/OR VOMITING Last administered on 01/16/17 00:51; Admin Dose 4 MG; Start 01/13/17 at 18:00 Pantoprazole (Protonix Iv) 40 mg DAILY@06 IV Last administered on 01/16/17 05 :34; Admin Dose 40 MG; Start 11/14/17 at 06:00 Hydromorphone HCl 2 mg 2 mg Q4H PRN IV PAIN Last administered on 01/16/17 16: 19; Admin Dose 2 MG; Start 01/13/17 at 21:00 Ceftriaxone Sodium 50 ml @ 100 mls/hr Q24H IVPB Last administered on 08:14; Admin Dose 100 MLS/HR; Start 01/14/17 at 08:00 Potassium Chloride/Dextrose/ Sod Cl (D5-1/2ns + KCl 40 Meq) 1,000 ml @ 50 mls/ hr Q20H IV Last administered on 01/16/17 17:36; Admin Dose 50 MLS/HR; Start 01/14/17 at 08:00 Lorazepam (Ativan) 0.5 mg Q6H PRN IV anxiety; Start 01/14/17 at 08:30 Docusate Sodium (Colace Liquid Cup) 100 mg BID PO Last administered on 08:14; Admin Dose 100 MG; Start 01/15/17 at 12:00 Assessment/Plan Chief Complaint/Hosp Course 66-year-old male with history of colorectal cancer status post chemoradiation, has a colostomy and still have cancer in the perirectal area and pelvic mass and 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 I am not sure the patient realizes how much advanced his cancer is. He asked me how can we get rid of the infection. I explained to him the infection is because of the colovesical fistula and as long as the fistula exist he will have infections and the treatment of the fistula is to have that part of the colon resected and from the bladder which basically means have a major operation if it is feasible but it does not look it was resectable thus why he had the colostomy. We will have to treat him symptomatically and if there is any hope with the chemotherapy he will discuss it was Dr. Campa Problems: TATIANA JACOB MD Jan 16, 2017 18:50
[2017-01-16 20:00] VITALS: BP 165/72; RESP 20
[2017-01-17] MEDS: HYDROmorphONE 2 MG/ML SYG IV PRN ×6 (00:29→21:10)
[2017-01-17 02:00] VITALS: BP 160/72; RESP 20
[2017-01-17] MEDS: PANTOPRAZOLE 40 MG INJ IV SCH (05:20)
--- NOTE | 2017-01-17 06:00 | PN ---
DATE: 01/16/2017 SUBJECTIVE: The patient continues to have moderate abdominal pain, no nausea, tolerated clear liqui ds well yesterday. PHYSICAL EXAMINATION GENERAL: The patient is awake. VITAL SIGNS: Temperature 97.9, blood pressure 169/74. LUNGS: Clinically clear. HEART: S1, S2 with no definite gallops. EXTREMITIES: 2+ edema. Homans sign is negative. LABORATORY DATA: WBC count 8.9, hematocrit 30.1. Sodium 140, potassium 3.6, BUN 14, creatinine 0.6 9, magnesium 2.2. IMPRESSION: 1. Stage IV rectal cancer with high-grade small bowel obstruction showing slow clinical improvement . 2. Enterovesical fistula with urinary tract infection. Urine cultures growing gram-negative rods, Escherichia coli sensitive to cefazolin. 3. Severe hypoalbuminemia. 4. Status post hypokalemia and hypomagnesemia, resolved. PLAN: We will give 1 dose of Lasix 20 mg, continue gentle hydration with potassium supplements and gradually advance the diet and closely follow his condition. Dictated By: JM HARRIS MD, SR/KEVIN Conf#: [id number] DID#: [id number]
[2017-01-17 06:18] LABS: BASOPHILS % 0.2 % (0.0-2.0); EOSINOPHILS # 0.1 10^3/ul (0.0-0.5); EOSINOPHILS % 0.7 % (0.0-7.0); HEMATOCRIT 29.7 % (42.0-52.0); HEMOGLOBIN 9.2 g/dl (14.0-18.0); LYMPHOCYTES # 0.7 10^3/ul (0.8-2.9); LYMPHOCYTES % 7.4 % (15.0-51.0); MEAN CORPUSCULAR HEMOGLOBIN 25.9 pg (29.0-33.0); MEAN CORPUSCULAR VOLUME 83.7 fl (82.0-101.0); MEAN PLATELET VOLUME 8.8 fl (7.4-10.4); MONOCYTE # 0.7 10^3/ul (0.3-0.9); MONOCYTES % 7.2 % (0.0-11.0); NEUTROPHIL # 7.7 10^3/ul (1.6-7.5); NEUTROPHILS % 84.1 % (39.0-77.0); PLATELET COUNT 376 10^3/UL (140-415); RED BLOOD COUNT 3.55 10^6/ul (4.70-6.10); RED CELL DISTRIBUTION WIDTH 16.6 % (11.5-14.5); WHITE BLOOD COUNT 9.2 10^3/ul (4.8-10.8)
[2017-01-17 06:51] LABS: CALCIUM 7.9 mg/dl (8.4-10.2); CREATININE 0.63 mg/dl (0.61-1.24); POTASSIUM 4.1 mmol/L (3.5-5.1)
[2017-01-17] MEDS: ONDANSETRON 4 MG INJ IV PRN (08:01)
[2017-01-17] MEDS: CEFTRIAXONE 1 GM/50 ML (PMX) 50 ML IVPB SCH (08:02)
[2017-01-17 08:32] VITALS: BP 135/63; RESP 18
[2017-01-17] MEDS: DOCUSATE SODIUM 10 MG/ML (10ML CUP) PO SCH ×2 (09:41→21:10)
--- NOTE | 2017-01-17 15:28 | PN ---
DATE: 01/17/2017 SUBJECTIVE: The patient overall feels slightly better. Complains of hiccups, less abdominal discom fort. Colostomy functioning improving. PHYSICAL EXAMINATION GENERAL: The patient is awake, alert. VITAL SIGNS: Temperature 99.0, blood pressure 134/63, O2 sat is 98%. HEENT: Head normocephalic. Mild pallor without cyanosis. Tongue is moist. NECK: Supple. No thyromegaly, bruits or lymphadenopathy. LUNGS: Clinically clear. ABDOMEN: Soft, mildly distended. Bowel sounds hypoactive. EXTREMITIES: Decreased edema. LABORATORY DATA: Sodium 139, potassium 4.1, BUN 9, creatinine 0.63, hematocrit 29.7, WBC count 9.2. IMPRESSION: 1. Stage IV rectal cancer with high-grade small-bowel obstruction showing slow clinical improvement . 2. Enterovesical fistula with urinary tract infection, Escherichia coli. 3. Severe hypoalbuminemia. PLAN: We will advance the diet gradually to soft diet, increase activity and observe. Recheck labs in a.m. Dictated By: JM HARRIS MD, SR/KEVIN Conf#: [id number] DID#: [id number]
[2017-01-17 15:39] VITALS: BP 155/74; RESP 18
--- NOTE | 2017-01-17 18:51 | CONS ---
Date/Time of Note Date/Time of Note DATE: 01/17/17 TIME: 18:50 Assessment/Plan Assessment/Plan Chief Complaint/Hosp Course RECTAL CANCER locally advanced on presentation, s/t chemo/XRT, following by surgery and currently on adjuvant component of chemo ( FLOX) small-bowel obstruction.- RECURRENT CHEMO ON HOLD CLEAR LIQUID PAIN CONTROL SURG F-UP Enterovesical fistula with likely infection of the system. History of hypertension. History of nephrolithiasis. Severe hypoalbuminemia with third spacing. Mild hyponatremia. Problems: Consultation Date/Type/Reason Admit Date/Time Jan 13, 2017 at 14:51 Initial Consult Date 01/14/17 [facility] Referring Provider: JM HARRIS MD 24 HR Interval Summary Free Text/Dictation ALL NOTED D/W PT Exam/Review of Systems Vital Signs Vitals Vital Signs Date Time Temp Pulse Resp B/P Pulse Ox O2 Delivery O2 Flow Rate FiO2 01/17/17 15:39 98.6 74 18 155/74 100 01/13/17 16:49 Room Air Intake and Output 01/16/17 01/16/17 01/17/17 15:00 23:00 07:00 Intake Total 725 ml 950 ml 1720 ml Balance 725 ml 950 ml 1720 ml Exam GENERAL: The patient is awake, alert. HEENT: Normocephalic, severe pallor without cyanosis. Tongue is coated, dry. NECK: Supple. No thyromegaly, or bruits, lymphadenopathy. LUNGS: Clinically clear. ABDOMEN: Soft, bowel sounds very hypoactive. EXTREMITIES: 2+ edema. Homans negative. Results Result Diagram: 01/17/17 0556 01/17/17 0556 Results 24 hrs Laboratory Tests Test 01/17/17 05:56 White Blood Count 9.2 Red Blood Count 3.55 L Hemoglobin 9.2 L Hematocrit 29.7 L Mean Corpuscular Volume 83.7 Mean Corpuscular Hemoglobin 25.9 L Mean Corpuscular Hemoglobin Concent 31.0 L Red Cell Distribution Width 16.6 H Platelet Count 376 Mean Platelet Volume 8.8 Neutrophils % 84.1 H Lymphocytes % 7.4 L Monocytes % 7.2 Eosinophils % 0.7 Basophils % 0.2 Nucleated Red Blood Cells % 0.0 Neutrophils # 7.7 H Lymphocytes # 0.7 L Monocytes # 0.7 Eosinophils # 0.1 Basophils # 0.0 Nucleated Red Blood Cells # 0.0 Sodium Level 139 Potassium Level 4.1 Chloride Level 106 Carbon Dioxide Level 27 Anion Gap 10 Blood Urea Nitrogen 9 Creatinine 0.63 Glucose Level 78 Calcium Level 7.9 L Medications Medications Current Medications Ondansetron HCl (Zofran Inj) 4 mg Q4H PRN IV NAUSEA AND/OR VOMITING Last administered on 01/17/17 08:01; Admin Dose 4 MG; Start 01/13/17 at 18:00 Hydromorphone HCl 2 mg 2 mg Q4H PRN IV PAIN Last administered on 01/17/17 17: 06; Admin Dose 2 MG; Start 01/13/17 at 21:00 Ceftriaxone Sodium 50 ml @ 100 mls/hr Q24H IVPB Last administered on 08:02; Admin Dose 100 MLS/HR; Start 01/14/17 at 08:00 Potassium Chloride/Dextrose/ Sod Cl (D5-1/2ns + KCl 40 Meq) 1,000 ml @ 50 mls/ hr Q20H IV Last administered on 01/16/17 17:36; Admin Dose 50 MLS/HR; Start 01/14/17 at 08:00 Lorazepam (Ativan) 0.5 mg Q6H PRN IV anxiety; Start 01/14/17 at 08:30 Docusate Sodium (Colace Liquid Cup) 100 mg BID PO Last administered on 09:41; Admin Dose 100 MG; Start 01/15/17 at 12:00 Pantoprazole (Protonix Tab) 40 mg DAILY@06 PO ; Start 01/18/17 at 06:00 JASMINA PALOMARES MD Jan 17, 2017 18:51
--- NOTE | 2017-01-17 19:59 | CONS ---
Date/Time of Note Date/Time of Note DATE: 01/17/17 TIME: 19:56 Consult Date/Type/Reason Admit Date/Time Jan 13, 2017 at 14:51 Initial Consult Date 01/14/17 Type of Consultation: Urology Reason for Consultation Urinary tract infection, dysuria and colovesical fistula Ordering Provider: JM HARRIS MD Subjective Patient states he is feeling better there is no dysuria still have some sediment in the urine Objective Vital Signs Date Time Temp Pulse Resp B/P Pulse Ox O2 Delivery O2 Flow Rate FiO2 01/17/17 15:39 98.6 74 18 155/74 100 01/13/17 16:49 Room Air Intake and Output 01/16/17 01/16/17 01/17/17 15:00 23:00 07:00 Intake Total 725 ml 950 ml 1720 ml Balance 725 ml 950 ml 1720 ml Exam Patient does have a colostomy, abdomen is soft Results/Medications Result Diagram: 01/17/17 0556 01/17/17 0556 Results 24 hrs Laboratory Tests Test 01/17/17 05:56 White Blood Count 9.2 Red Blood Count 3.55 L Hemoglobin 9.2 L Hematocrit 29.7 L Mean Corpuscular Volume 83.7 Mean Corpuscular Hemoglobin 25.9 L Mean Corpuscular Hemoglobin Concent 31.0 L Red Cell Distribution Width 16.6 H Platelet Count 376 Mean Platelet Volume 8.8 Neutrophils % 84.1 H Lymphocytes % 7.4 L Monocytes % 7.2 Eosinophils % 0.7 Basophils % 0.2 Nucleated Red Blood Cells % 0.0 Neutrophils # 7.7 H Lymphocytes # 0.7 L Monocytes # 0.7 Eosinophils # 0.1 Basophils # 0.0 Nucleated Red Blood Cells # 0.0 Sodium Level 139 Potassium Level 4.1 Chloride Level 106 Carbon Dioxide Level 27 Anion Gap 10 Blood Urea Nitrogen 9 Creatinine 0.63 Glucose Level 78 Calcium Level 7.9 L Medications Current Medications Ondansetron HCl (Zofran Inj) 4 mg Q4H PRN IV NAUSEA AND/OR VOMITING Last administered on 01/17/17 08:01; Admin Dose 4 MG; Start 01/13/17 at 18:00 Hydromorphone HCl 2 mg 2 mg Q4H PRN IV PAIN Last administered on 01/17/17 17: 06; Admin Dose 2 MG; Start 01/13/17 at 21:00 Ceftriaxone Sodium 50 ml @ 100 mls/hr Q24H IVPB Last administered on 08:02; Admin Dose 100 MLS/HR; Start 01/14/17 at 08:00 Potassium Chloride/Dextrose/ Sod Cl (D5-1/2ns + KCl 40 Meq) 1,000 ml @ 50 mls/ hr Q20H IV Last administered on 01/16/17 17:36; Admin Dose 50 MLS/HR; Start 01/14/17 at 08:00 Lorazepam (Ativan) 0.5 mg Q6H PRN IV anxiety; Start 01/14/17 at 08:30 Docusate Sodium (Colace Liquid Cup) 100 mg BID PO Last administered on 09:41; Admin Dose 100 MG; Start 01/15/17 at 12:00 Pantoprazole (Protonix Tab) 40 mg DAILY@06 PO ; Start 01/18/17 at 06:00 Assessment/Plan Chief Complaint/Hosp Course 66-year-old male with history of colorectal cancer status post chemoradiation, has a colostomy and still have cancer in the perirectal area and pelvic mass and 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 I am not sure the patient realizes how much advanced his cancer is. He is presently on IV antibiotic and these could be continued at home if the plan is to discharge him. Problems: TATIANA JACOB MD Jan 17, 2017 19:59
[2017-01-17 20:00] VITALS: BP 156/74; RESP 20
--- NOTE | 2017-01-17 21:34 | PN ---
Date/Time of Note Date/Time of Note DATE: 01/17/17 TIME: 21:32 Assessment/Plan Lines/Catheters IV Catheter Type (from Nrs): Peripheral IV Coates in Place (from Nrs): No Assessment/Plan Assessment/Plan [facility] Progress Note Date of Service: 01/17/2017 Location of Service: [facility] Second floor formerly [facility] Today's Assessment & Plan: Overall stable. Abdomen remains benign. No indication for acute surgical intervention. Awaiting further return of bowel function. With above assessment, I've recommended the following for today: 1. Continue current nonoperative management 2. Continue clear liquid diet for now 3. Labs in a.m. Thank you again for your great care of this very pleasant patient and wonderful family. If there are any questions, please feel free to call me at [phone]. Nature of presenting problem: High severity Please note that, given the multiple number of diagnoses or management options, the extensive amount and/or complexity of data needed to be reviewed, and I risk of complications and/or morbidity or mortality, this qualifies as high complexity type of decision-making. Disclaimers: 1. Inadvertent spelling and grammatical errors are likely due to electronic health record (EHR)/dictation software used and do not reflect on the quality of delivered patient care. 2. The electronic timestamp recorded on this note does not necessarily reflect the actual date and time of the visit or the service. 3. Portions of this note may have been created through electronic templates and computer algorithms that might bring in information either from the system or from other physicians and providers. Please note that such information may or may not contain errors, the occurrence of which are outside of my control. In general (but not always) this happens either in the beginning or at the end of the note. The portion of the note that I have created are generally done in 1 continuous block of text, flanked at the beginning and at the end by " ", and entered into one field in the EHR. 4. There may be other unanticipated errors in the note that are outside of my control. I can only attest to the portions of the note that I have created. Updated Clinical Summary: The patient is a very pleasant 66-year-old gentleman with comorbidities including hypertension, who was initially admitted to [facility] through ED on 2015 with signs and symptoms consistent with anemia that eventually was shown to be a large, nearly obstructing mass approximately 12 cm from the anal verge up to the area of the rectosigmoid junction on colonoscopy 06/07/2015. Plan at that time was neoadjuvant treatment with chemoradiation followed by restaging and surgical resection. Patient underwent radiation therapy (Dr. Aranda) that ended September 2015 (patient's recollection was November 2015). Discussions with multiple colleagues revealed evidence that the patient had been not following instructions and there were barriers to get the patient to surgical intervention. At least part of the barriers were due to patient factors alone. Patient reported having contacted my office approximately 5 times to try and make an appointment and was told that we "do not accept" his insurance. Careful review of office records showed no documentation of patient calling. Patient also believed that he had had [employer] as his insurance carrier, but his insurance carrier was [employer] (accepted by our program). Patient re-presented to [facility] through ED with constipation, vomiting, abdominal distension and dilated loops of small intestine on 04/01/16. Significant comorbidities included not insignificant malnutrition with BMI 15.8 and dehydration, albumin of 3.6 in the setting of inability to feed enterically. Small area of liver in segment 6 and two very small areas in segment 4a of questionable significance (too small to tell) benign path vs. metastatic disease. We attempted to treat the bowel obstruction with nonoperative management with the hope that the patient would be able to increase his oral intake and improve his nutritional status prior to potentially getting systemic chemotherapy in the neoadjuvant fashion before surgical intervention. Patient very clearly showed us that his bowels were not able to tolerate any meaningful amount of nutritional intake after a few days of this management and for this reason, and after a multidisciplinary discussion, we decided to change our treatment strategy and take the patient to the operating room. + BM 07/21/16. List of operative interventions on 04/12/16: 1. Laparoscopic exploration converted to open exploration 2. Partial colectomy with removal of upper part of rectum and sigmoid colon ( modifier 22) 3. Resection of the end of terminal ileum along with cecum with primary anastomosis 4. Performance of an colostomy using distal descending colon 5. Extensive lysis of adhesions (at least 60 minutes) 6. Intraoperative ultrasound of the liver 7. Abdominal lavage D/c home 04/23/16. Two visits to ED for constipation 06/07 and 06/11/16. Readmitted after a few ED visits in June and July 2016 though ED to [facility] on 07/19/16 with UTI and perhaps partial SBO. Treated non-operatively successfully with treatment of UTI and resolution of partial SBO; d/c home 07/22/16. Readmitted for similar complaints, but was managed nonoperatively. Comorbidities: 1. Rectal malignancy, s/p chemotherapy and radiation June to Nov 2015; obstruction end of terminal ileum as well as at the level of the rectosigmoid junction with aggressive locally advanced rectal cancer; S/p an otherwise uncomplicated but challenging resection of both involved portions of rectosigmoid as well as terminal ileum in the setting of aggressive rectal cancer with local invasion of the pelvis on 04/13/16. 2. Hypertension 3. Cachexia; BMI 17.3 (previously 15.08 Jul 2016); albumin of 2.5 (previously 3.06 Jul 2016) in the setting of inability to feed enterically 4. Colonoscopy June 2015 5. Anxiety 6. Multiple visits to ED and admissions to hospital through July 2016 Subjective: No major events or complaints; no major abd pain and under control with medications; no n/v/d; no sob or cp; + bowel activity, + activity; less hiccups Objective: Vitals: See below Exam: GENERAL: On exam, the patient was laying in bed and appeared to be comfortable and in no acute distress. ABDOMEN: Soft, nontender and nondistended. Ostomy was viable and there was minimal stool in the bag. less edema of the ostomy noted. There are no peritoneal signs or guarding. SKIN: Skin appears to be pink and feels warm to touch. NEUROLOGIC: Patient is awake, alert, and follows commands appropriately. Exam/Review of Systems Vital Signs Vitals Vital Signs Date Time Temp Pulse Resp B/P Pulse Ox O2 Delivery O2 Flow Rate FiO2 01/17/17 20:00 98.5 72 20 156/74 98 01/13/17 16:49 Room Air Intake and Output 01/16/17 01/16/17 01/17/17 15:00 23:00 07:00 Intake Total 725 ml 950 ml 1720 ml Balance 725 ml 950 ml 1720 ml Results Result Diagram: 01/17/17 0556 01/17/17 0556 DIVINE BEY M.D. Jan 17, 2017 21:34
[2017-01-18] MEDS: HYDROmorphONE 2 MG/ML SYG IV PRN ×5 (01:06→21:48)
[2017-01-18 02:00] VITALS: BP 153/79
[2017-01-18] MEDS: PANTOPRAZOLE (EC) 40 MG TAB PO SCH (05:03)
[2017-01-18] MEDS: D5W-0.45 NACL + KCL 40 MEQ 1,000 ML IV SCH (05:20)
[2017-01-18 06:01] LABS: BASOPHILS % 0.3 % (0.0-2.0); EOSINOPHILS # 0.1 10^3/ul (0.0-0.5); HEMATOCRIT 31.6 % (42.0-52.0); HEMOGLOBIN 9.5 g/dl (14.0-18.0); LYMPHOCYTES # 0.8 10^3/ul (0.8-2.9); LYMPHOCYTES % 9.1 % (15.0-51.0); MEAN CORPUSCULAR HEMOGLOBIN 25.8 pg (29.0-33.0); MEAN CORPUSCULAR HGB CONC 30.1 g/dl (32.0-37.0); MEAN CORPUSCULAR VOLUME 85.9 fl (82.0-101.0); MEAN PLATELET VOLUME 9.4 fl (7.4-10.4); MONOCYTE # 0.7 10^3/ul (0.3-0.9); MONOCYTES % 7.9 % (0.0-11.0); NEUTROPHIL # 7.2 10^3/ul (1.6-7.5); NEUTROPHILS % 80.8 % (39.0-77.0); PLATELET COUNT 320 10^3/UL (140-415); RED BLOOD COUNT 3.68 10^6/ul (4.70-6.10); WHITE BLOOD COUNT 8.9 10^3/ul (4.8-10.8)
[2017-01-18 07:03] LABS: CALCIUM 8.2 mg/dl (8.4-10.2); CREATININE 0.63 mg/dl (0.61-1.24); MAGNESIUM 1.9 mg/dl (1.7-2.5); POTASSIUM 4.8 mmol/L (3.5-5.1)
[2017-01-18 08:09] VITALS: BP 167/77; RESP 17
[2017-01-18] MEDS: DOCUSATE SODIUM 10 MG/ML (10ML CUP) PO SCH ×2 (08:21→20:55)
[2017-01-18] MEDS: CEFTRIAXONE 1 GM/50 ML (PMX) 50 ML IVPB SCH (08:21)
[2017-01-18] MEDS: ONDANSETRON 4 MG INJ IV PRN (08:21)
--- NOTE | 2017-01-18 11:22 | PN ---
Date/Time of Note Date/Time of Note DATE: 01/18/17 TIME: 08:19 Assessment/Plan Lines/Catheters IV Catheter Type (from [facility]): Saline Lock Coates in Place (from [facility]): No Assessment/Plan Assessment/Plan [facility] Progress Note Date of Service: 01/18/2017 Location of Service: [facility] Second floor [facility] Today's Assessment & Plan: Overall stable. Still with partial SBO. Abdomen remains benign. No indication for acute surgical intervention. Remains extremely high risk for surgical intervention. Awaiting further return of bowel function and hoping for resolution of SBO with non-operative management. With above assessment, I've recommended the following for today: 1. Continue current nonoperative management 2. Continue clear liquid diet for now with slow advancement as tolerated 3. Labs in a.m. Thank you again for your great care of this very pleasant patient and wonderful family. If there are any questions, please feel free to call me at [phone]. Nature of presenting problem: High severity Please note that, given the multiple number of diagnoses or management options, the extensive amount and/or complexity of data needed to be reviewed, and I risk of complications and/or morbidity or mortality, this qualifies as high complexity type of decision-making. Disclaimers: 1. Inadvertent spelling and grammatical errors are likely due to electronic health record (EHR)/dictation software used and do not reflect on the quality of delivered patient care. 2. The electronic timestamp recorded on this note does not necessarily reflect the actual date and time of the visit or the service. 3. Portions of this note may have been created through electronic templates and computer algorithms that might bring in information either from the system or from other physicians and providers. Please note that such information may or may not contain errors, the occurrence of which are outside of my control. In general (but not always) this happens either in the beginning or at the end of the note. The portion of the note that I have created are generally done in 1 continuous block of text, flanked at the beginning and at the end by " ", and entered into one field in the EHR. 4. There may be other unanticipated errors in the note that are outside of my control. I can only attest to the portions of the note that I have created. Updated Clinical Summary: The patient is a very pleasant 66-year-old gentleman with comorbidities including hypertension, who was initially admitted to [facility] through ED on 2015 with signs and symptoms consistent with anemia that eventually was shown to be a large, nearly obstructing mass approximately 12 cm from the anal verge up to the area of the rectosigmoid junction on colonoscopy 06/07/2015. Plan at that time was neoadjuvant treatment with chemoradiation followed by restaging and surgical resection. Patient underwent radiation therapy (Dr. Aranda) that ended September 2015 (patient's recollection was November 2015). Discussions with multiple colleagues revealed evidence that the patient had been not following instructions and there were barriers to get the patient to surgical intervention. At least part of the barriers were due to patient factors alone. Patient reported having contacted my office approximately 5 times to try and make an appointment and was told that we "do not accept" his insurance. Careful review of office records showed no documentation of patient calling. Patient also believed that he had had [employer] as his insurance carrier, but his insurance carrier was [employer] (accepted by our program). Patient re-presented to [facility] through ED with constipation, vomiting, abdominal distension and dilated loops of small intestine on 04/01/16. Significant comorbidities included not insignificant malnutrition with BMI 15.8 and dehydration, albumin of 3.6 in the setting of inability to feed enterically. Small area of liver in segment 6 and two very small areas in segment 4a of questionable significance (too small to tell) benign path vs. metastatic disease. We attempted to treat the bowel obstruction with nonoperative management with the hope that the patient would be able to increase his oral intake and improve his nutritional status prior to potentially getting systemic chemotherapy in the neoadjuvant fashion before surgical intervention. Patient very clearly showed us that his bowels were not able to tolerate any meaningful amount of nutritional intake after a few days of this management and for this reason, and after a multidisciplinary discussion, we decided to change our treatment strategy and take the patient to the operating room. + BM 07/21/16. List of operative interventions on 04/12/16: 1. Laparoscopic exploration converted to open exploration 2. Partial colectomy with removal of upper part of rectum and sigmoid colon ( modifier 22) 3. Resection of the end of terminal ileum along with cecum with primary anastomosis 4. Performance of an colostomy using distal descending colon 5. Extensive lysis of adhesions (at least 60 minutes) 6. Intraoperative ultrasound of the liver 7. Abdominal lavage D/c home 04/23/16. Two visits to ED for constipation 06/07 and 06/11/16. Readmitted after a few ED visits in June and July 2016 though ED to [facility] on 07/19/16 with UTI and perhaps partial SBO. Treated non-operatively successfully with treatment of UTI and resolution of partial SBO; d/c home 07/22/16. Readmitted for similar complaints, but was managed nonoperatively. Comorbidities: 1. Rectal malignancy, s/p chemotherapy and radiation June to Nov 2015; obstruction end of terminal ileum as well as at the level of the rectosigmoid junction with aggressive locally advanced rectal cancer; S/p an otherwise uncomplicated but challenging resection of both involved portions of rectosigmoid as well as terminal ileum in the setting of aggressive rectal cancer with local invasion of the pelvis on 04/13/16. 2. Hypertension 3. Cachexia; BMI 17.3 (previously 15.08 Jul 2016); albumin of 2.5 (previously 3.06 Jul 2016) in the setting of inability to feed enterically 4. Colonoscopy June 2015 5. Anxiety 6. Multiple visits to ED and admissions to hospital through July 2016 Subjective: No major events or complaints; no major abd pain and under control with medications; no n/v/d; no sob or cp; + bowel activity, + activity; still with hiccups Objective: Vitals: See below Exam: GENERAL: On exam, the patient was standing up in his room and appeared to be comfortable and in no acute distress. ABDOMEN: Soft, nontender and nondistended. Ostomy was viable; no significant stool or air in the bag. No major edema of the ostomy noted. There are no peritoneal signs or guarding. SKIN: Skin appears to be pink and feels warm to touch. NEUROLOGIC: Patient is awake, alert, and follows commands appropriately. Exam/Review of Systems Vital Signs Vitals Vital Signs Date Time Temp Pulse Resp B/P Pulse Ox O2 Delivery O2 Flow Rate FiO2 01/18/17 08:09 98.0 70 17 167/77 96 Intake and Output 01/17/17 01/17/17 01/18/17 15:00 23:00 07:00 Intake Total 100 ml 900 ml 600 ml Balance 100 ml 900 ml 600 ml Results Result Diagram: 01/18/17 0537 01/18/17 0537 DIVINE BEY M.D. Jan 18, 2017 11:22
[2017-01-18 14:00] VITALS: BP 160/65; RESP 18
--- NOTE | 2017-01-18 14:45 | CONS ---
Date/Time of Note Date/Time of Note DATE: 01/18/17 TIME: 14:42 Consult Date/Type/Reason Admit Date/Time Jan 13, 2017 at 14:51 Initial Consult Date 01/14/17 Type of Consultation: Urology Reason for Consultation Urinary tract infection and entero-vesical fistula Ordering Provider: JM HARRIS MD Subjective Patient states he is feeling better, no nausea or vomiting and urinating without dysuria but urine still have some sediment in it Objective Vital Signs Date Time Temp Pulse Resp B/P Pulse Ox O2 Delivery O2 Flow Rate FiO2 01/18/17 08:09 98.0 70 17 167/77 96 Intake and Output 01/17/17 01/17/17 01/18/17 15:00 23:00 07:00 Intake Total 100 ml 900 ml 600 ml Balance 100 ml 900 ml 600 ml Exam Abdomen is softer, he has colostomy in place. The urine is clear Results/Medications Result Diagram: 01/18/17 0537 01/18/17 0537 Results 24 hrs Laboratory Tests Test 01/18/17 05:37 White Blood Count 8.9 Red Blood Count 3.68 L Hemoglobin 9.5 L Hematocrit 31.6 L Mean Corpuscular Volume 85.9 Mean Corpuscular Hemoglobin 25.8 L Mean Corpuscular Hemoglobin Concent 30.1 L Red Cell Distribution Width 17.0 H Platelet Count 320 Mean Platelet Volume 9.4 Neutrophils % 80.8 H Lymphocytes % 9.1 L Monocytes % 7.9 Eosinophils % 1.0 Basophils % 0.3 Nucleated Red Blood Cells % 0.0 Neutrophils # 7.2 Lymphocytes # 0.8 Monocytes # 0.7 Eosinophils # 0.1 Basophils # 0.0 Nucleated Red Blood Cells # 0.0 Sodium Level 137 Potassium Level 4.8 Chloride Level 106 Carbon Dioxide Level 26 Anion Gap 10 Blood Urea Nitrogen 10 Creatinine 0.63 Glucose Level 68 #L Calcium Level 8.2 L Magnesium Level 1.9 Medications Current Medications Ondansetron HCl (Zofran Inj) 4 mg Q4H PRN IV NAUSEA AND/OR VOMITING Last administered on 01/18/17 08:21; Admin Dose 4 MG; Start 01/13/17 at 18:00 Hydromorphone HCl 2 mg 2 mg Q4H PRN IV PAIN Last administered on 01/18/17 13: 26; Admin Dose 2 MG; Start 01/13/17 at 21:00 Ceftriaxone Sodium 50 ml @ 100 mls/hr Q24H IVPB Last administered on 08:21; Admin Dose 100 MLS/HR; Start 01/14/17 at 08:00 Potassium Chloride/Dextrose/ Sod Cl (D5-1/2ns + KCl 40 Meq) 1,000 ml @ 50 mls/ hr Q20H IV Last administered on 01/16/17 17:36; Admin Dose 50 MLS/HR; Start 01/14/17 at 08:00 Lorazepam (Ativan) 0.5 mg Q6H PRN IV anxiety; Start 01/14/17 at 08:30 Docusate Sodium (Colace Liquid Cup) 100 mg BID PO Last administered on 08:21; Admin Dose 100 MG; Start 01/15/17 at 12:00 Pantoprazole (Protonix Tab) 40 mg DAILY@06 PO Last administered on 01/18/17 05:03; Admin Dose 40 MG; Start 01/18/17 at 06:00 Assessment/Plan Chief Complaint/Hosp Course 66-year-old male with history of colorectal cancer status post chemoradiation, has a colostomy and still have cancer in the perirectal area and pelvic mass and 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 At the present he has a urinary tract infection that is sensitive to the ceftriaxone he is on and when he is ready to go home he could be given Bactrim DS since it is sensitive to it Problems: TATIANA JACOB MD Jan 18, 2017 14:45
[2017-01-18] MEDS: AL HYDROX/MG HYDROX/SIMETH 30 ML CUP PO PRN (17:58)
[2017-01-18] MEDS ORDERED: HYDROmorphONE 1 MG/ML SYG IV PRN (18:30)
--- NOTE | 2017-01-18 18:50 | PN ---
DATE: 01/18/2017 SUBJECTIVE: The patient complains of recurrent hiccups, but nauseous earlier. No output noted in t he colostomy bag. PHYSICAL EXAMINATION GENERAL: The patient is awake, alert, anxious. VITAL SIGNS: Temperature 98, blood pressure 167/77, O2 sat 96%. CHEST: Clinically clear. HEART: S1, S2 heard with no rubs or gallops. ABDOMEN: Mildly distended. No output noted in the colostomy. EXTREMITIES: 1+ edema. Homans sign is negative. LABORATORY DATA: WBC count is 8.9, hematocrit 31.6, platelets 320,000. Potassium 4.8, glucose 68, magnesium 1.9. IMPRESSION: 1. Stage IV rectal cancer with high-grade small-bowel obstruction with very slow clinical improveme nt. The patient not able to tolerate soft diet; will change to full liquids. 2. 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 3. Severe hypoalbuminemia. PLAN: 1. Will discontinue IV fluids. The patient has been encouraged to drink p.o. fluids and also add B oost or Ensure for protein supplements, decreased to 1 mg q. 3-4 h. p.r.n. 2. Recheck labs in a.m. Dictated By: JM HARRIS MD, SR/KEVIN Conf#: [id number] DID#: [id number]
[2017-01-18 20:00] VITALS: BP 176/77; RESP 17
--- NOTE | 2017-01-18 22:15 | CONS ---
Date/Time of Note Date/Time of Note DATE: 01/18/17 TIME: 22:15 Assessment/Plan Assessment/Plan Chief Complaint/Hosp Course RECTAL CANCER locally advanced on presentation, s/t chemo/XRT, following by surgery and currently on adjuvant component of chemo ( FLOX) small-bowel obstruction.- RECURRENT CHEMO ON HOLD CLEAR LIQUID PAIN CONTROL SURG F-UP Enterovesical fistula with likely infection of the system. History of hypertension. History of nephrolithiasis. Severe hypoalbuminemia with third spacing. Mild hyponatremia. Problems: Consultation Date/Type/Reason Admit Date/Time Jan 13, 2017 at 14:51 Initial Consult Date 01/14/17 [facility] Referring Provider: JM HARRIS MD 24 HR Interval Summary Free Text/Dictation FLUCTUATING COURSE Exam/Review of Systems Vital Signs Vitals Vital Signs Date Time Temp Pulse Resp B/P Pulse Ox O2 Delivery O2 Flow Rate FiO2 01/18/17 14:00 98.7 79 18 160/65 98 Intake and Output 01/17/17 01/17/17 01/18/17 15:00 23:00 07:00 Intake Total 100 ml 900 ml 600 ml Balance 100 ml 900 ml 600 ml Exam GENERAL: The patient is awake, alert. HEENT: Normocephalic, severe pallor without cyanosis. Tongue is coated, dry. NECK: Supple. No thyromegaly, or bruits, lymphadenopathy. LUNGS: Clinically clear. ABDOMEN: Soft, bowel sounds very hypoactive. EXTREMITIES: 2+ edema. Homans negative. Results Result Diagram: 01/18/17 0537 01/18/17 0537 Results 24 hrs Laboratory Tests Test 01/18/17 05:37 White Blood Count 8.9 Red Blood Count 3.68 L Hemoglobin 9.5 L Hematocrit 31.6 L Mean Corpuscular Volume 85.9 Mean Corpuscular Hemoglobin 25.8 L Mean Corpuscular Hemoglobin Concent 30.1 L Red Cell Distribution Width 17.0 H Platelet Count 320 Mean Platelet Volume 9.4 Neutrophils % 80.8 H Lymphocytes % 9.1 L Monocytes % 7.9 Eosinophils % 1.0 Basophils % 0.3 Nucleated Red Blood Cells % 0.0 Neutrophils # 7.2 Lymphocytes # 0.8 Monocytes # 0.7 Eosinophils # 0.1 Basophils # 0.0 Nucleated Red Blood Cells # 0.0 Sodium Level 137 Potassium Level 4.8 Chloride Level 106 Carbon Dioxide Level 26 Anion Gap 10 Blood Urea Nitrogen 10 Creatinine 0.63 Glucose Level 68 #L Calcium Level 8.2 L Magnesium Level 1.9 Medications Medications Current Medications Ondansetron HCl 4 mg 4 mg Q4H PRN IV NAUSEA AND/OR VOMITING Last administered on 01/18/17 08:21; Admin Dose 4 MG; Start 01/13/17 at 18:00 Ceftriaxone Sodium (Rocephin) 50 ml @ 100 mls/hr Q24H IVPB Last administered on 01/18/17 08:21; Admin Dose 100 MLS/HR; Start 01/14/17 at 08:00 Lorazepam (Ativan) 0.5 mg Q6H PRN IV anxiety; Start 01/14/17 at 08:30 Docusate Sodium (Colace Liquid Cup) 100 mg BID PO Last administered on 08:21; Admin Dose 100 MG; Start 01/15/17 at 12:00 Pantoprazole (Protonix Tab) 40 mg DAILY@06 PO Last administered on 01/18/17 05:03; Admin Dose 40 MG; Start 01/18/17 at 06:00 Al Hydrox/Mg Hydrox/Simethicone (Mag-Al Plus) 30 ml TID PRN PO GASTROINTESTINAL UPSET Last administered on 01/18/17 17:58; Admin Dose 30 ML; Start 01/18/17 at 16:00 Hydromorphone HCl (Dilaudid) 2 mg Q4H PRN IV PAIN Last administered on 21:48; Admin Dose 2 MG; Start 01/18/17 at 21:30 JASMINA PALOMARES MD Jan 18, 2017 22:15
[2017-01-19 02:00] VITALS: BP 161/77; RESP 18
[2017-01-19] MEDS: HYDROmorphONE 2 MG/ML SYG IV PRN ×6 (02:07→23:18)
[2017-01-19] MEDS: PANTOPRAZOLE (EC) 40 MG TAB PO SCH (06:08)
[2017-01-19 06:32] LABS: BASOPHILS % 0.2 % (0.0-2.0); EOSINOPHILS # 0.1 10^3/ul (0.0-0.5); EOSINOPHILS % 0.6 % (0.0-7.0); HEMATOCRIT 29.5 % (42.0-52.0); HEMOGLOBIN 9.2 g/dl (14.0-18.0); LYMPHOCYTES # 0.7 10^3/ul (0.8-2.9); LYMPHOCYTES % 8.4 % (15.0-51.0); MEAN CORPUSCULAR HEMOGLOBIN 25.9 pg (29.0-33.0); MEAN CORPUSCULAR HGB CONC 31.2 g/dl (32.0-37.0); MEAN CORPUSCULAR VOLUME 83.1 fl (82.0-101.0); MEAN PLATELET VOLUME 8.9 fl (7.4-10.4); MONOCYTE # 0.6 10^3/ul (0.3-0.9); MONOCYTES % 7.5 % (0.0-11.0); NEUTROPHIL # 6.7 10^3/ul (1.6-7.5); NEUTROPHILS % 82.8 % (39.0-77.0); PLATELET COUNT 380 10^3/UL (140-415); RED BLOOD COUNT 3.55 10^6/ul (4.70-6.10); RED CELL DISTRIBUTION WIDTH 16.7 % (11.5-14.5); WHITE BLOOD COUNT 8.1 10^3/ul (4.8-10.8)
[2017-01-19 06:54] LABS: CALCIUM 8.4 mg/dl (8.4-10.2); CREATININE 0.79 mg/dl (0.61-1.24); POTASSIUM 4.3 mmol/L (3.5-5.1)
[2017-01-19] MEDS: CEFTRIAXONE 1 GM/50 ML (PMX) 50 ML IVPB SCH (08:18)
[2017-01-19] MEDS: DOCUSATE SODIUM 10 MG/ML (10ML CUP) PO SCH ×2 (08:19→20:43)
[2017-01-19 08:31] VITALS: BP 154/69; RESP 17
--- NOTE | 2017-01-19 14:21 | CONS ---
Date/Time of Note Date/Time of Note DATE: 01/19/17 TIME: 14:21 Assessment/Plan Assessment/Plan Chief Complaint/Hosp Course RECTAL CANCER locally advanced on presentation, s/t chemo/XRT, following by surgery and currently on adjuvant component of chemo ( FLOX) small-bowel obstruction.- RECURRENT CHEMO ON HOLD CLEAR LIQUID PAIN CONTROL SURG F-UP Enterovesical fistula with likely infection of the system. History of hypertension. History of nephrolithiasis. Severe hypoalbuminemia with third spacing. Mild hyponatremia. Problems: Consultation Date/Type/Reason Admit Date/Time Jan 13, 2017 at 14:51 Initial Consult Date 01/14/17 [facility] Referring Provider: JM HARRIS MD 24 HR Interval Summary Free Text/Dictation VERY SLOW PROGRESS Exam/Review of Systems Vital Signs Vitals Vital Signs Date Time Temp Pulse Resp B/P Pulse Ox O2 Delivery O2 Flow Rate FiO2 01/19/17 08:31 98.5 64 17 154/69 98 Intake and Output 01/18/17 01/18/17 01/19/17 15:00 23:00 07:00 Intake Total 50 ml 920 ml 250 ml Balance 50 ml 920 ml 250 ml Exam GENERAL: The patient is awake, alert. HEENT: Normocephalic, severe pallor without cyanosis. Tongue is coated, dry. NECK: Supple. No thyromegaly, or bruits, lymphadenopathy. LUNGS: Clinically clear. ABDOMEN: Soft, bowel sounds very hypoactive. EXTREMITIES: 2+ edema. Homans negative. Results Result Diagram: 01/19/17 0600 01/19/17 0544 Results 24 hrs Laboratory Tests Test 01/19/17 05:44 01/19/17 06:00 Sodium Level 136 Potassium Level 4.3 Chloride Level 103 Carbon Dioxide Level 30 Anion Gap 7 L Blood Urea Nitrogen 13 Creatinine 0.79 Glucose Level 69 L Calcium Level 8.4 White Blood Count 8.1 Red Blood Count 3.55 L Hemoglobin 9.2 L Hematocrit 29.5 L Mean Corpuscular Volume 83.1 Mean Corpuscular Hemoglobin 25.9 L Mean Corpuscular Hemoglobin Concent 31.2 L Red Cell Distribution Width 16.7 H Platelet Count 380 Mean Platelet Volume 8.9 Neutrophils % 82.8 H Lymphocytes % 8.4 L Monocytes % 7.5 Eosinophils % 0.6 Basophils % 0.2 Nucleated Red Blood Cells % 0.0 Neutrophils # 6.7 Lymphocytes # 0.7 L Monocytes # 0.6 Eosinophils # 0.1 Basophils # 0.0 Nucleated Red Blood Cells # 0.0 Medications Medications Current Medications Ondansetron HCl 4 mg 4 mg Q4H PRN IV NAUSEA AND/OR VOMITING Last administered on 01/18/17 08:21; Admin Dose 4 MG; Start 01/13/17 at 18:00 Ceftriaxone Sodium (Rocephin) 50 ml @ 100 mls/hr Q24H IVPB Last administered on 01/19/17 08:18; Admin Dose 100 MLS/HR; Start 01/14/17 at 08:00 Lorazepam (Ativan) 0.5 mg Q6H PRN IV anxiety; Start 01/14/17 at 08:30 Docusate Sodium (Colace Liquid Cup) 100 mg BID PO Last administered on 08:19; Admin Dose 100 MG; Start 01/15/17 at 12:00 Pantoprazole (Protonix Tab) 40 mg DAILY@06 PO Last administered on 01/19/17 06:08; Admin Dose 40 MG; Start 01/18/17 at 06:00 Al Hydrox/Mg Hydrox/Simethicone (Mag-Al Plus) 30 ml TID PRN PO GASTROINTESTINAL UPSET Last administered on 01/18/17 17:58; Admin Dose 30 ML; Start 01/18/17 at 16:00 Hydromorphone HCl (Dilaudid) 2 mg Q4H PRN IV PAIN Last administered on 09:58; Admin Dose 2 MG; Start 01/18/17 at 21:30 JASMINA PALOMARES MD Jan 19, 2017 14:21
[2017-01-19 15:22] VITALS: BP 150/74; RESP 18
[2017-01-19 20:35] VITALS: BP 173/74; RESP 21
[2017-01-19 21:10] VITALS: BP 194/83; PULSE 62
[2017-01-19] MEDS ORDERED: HYDROmorphONE 2 MG/ML SYG IV PRN (21:30)
[2017-01-19 23:10] VITALS: BP 189/81; PULSE 68
[2017-01-19] MEDS ORDERED: LORAZEPAM 0.5 MG TAB PO PRN (23:30)
[2017-01-20 02:23] VITALS: BP 161/68; RESP 21
[2017-01-20] MEDS: HYDROmorphONE 2 MG/ML SYG IV PRN ×5 (06:02→23:17)
[2017-01-20] MEDS: PANTOPRAZOLE (EC) 40 MG TAB PO SCH (06:02)
[2017-01-20 07:00] VITALS: BP 154/72; PULSE 61
[2017-01-20] MEDS: DOCUSATE SODIUM 10 MG/ML (10ML CUP) PO SCH ×2 (09:17→21:08)
[2017-01-20] MEDS: CEFTRIAXONE 1 GM/50 ML (PMX) 50 ML IVPB SCH (09:17)
[2017-01-20 14:15] VITALS: BP 157/71; RESP 18
[2017-01-20 18:56] LABS: ADD UMIC YES; UR ASCORBIC ACID NEGATIVE (NEGATIVE); UR BACTERIA MANY /HPF (NONE SEEN); UR BILIRUBIN (Dip) NEGATIVE (NEGATIVE); UR BLOOD (Dip) 3+ mg/dL (NEGATIVE); UR CLARITY CLOUDY (CLEAR); UR COLOR AMBER (YELLOW); UR GLUCOSE (Dip) NEGATIVE (NEGATIVE); UR KETONES (Dip) NEGATIVE (NEGATIVE); UR LEUKOCYTE ESTERASE (Dip) 3+ Leu/ul (NEGATIVE); UR MUCUS MANY /HPF (NONE SEEN); UR NITRITE (Dip) NEGATIVE (NEGATIVE); UR NONSQUAMOUS EPITHELIAL CELL 1 /HPF (NONE SEEN); UR RBC 50 /HPF (0-5); UR SPECIFIC GRAVITY (Dip) 1.012 (1.003-1.030); UR TOTAL PROTEIN (Dip) 2+ mg/dl (NEGATIVE); UR UROBILINOGEN (Dip) 1+ mg/dL (NEGATIVE)
[2017-01-20] MEDS ORDERED: MAGNESIUM CITRATE 300 ML BTL PO ONE (19:00)
[2017-01-20] MEDS: AL HYDROX/MG HYDROX/SIMETH 30 ML CUP PO PRN (19:05)
[2017-01-20 20:45] VITALS: BP 162/81; RESP 18
[2017-01-20] MEDS ORDERED: HYDROmorphONE 2 MG/ML SYG IV PRN (23:00)
--- NOTE | 2017-01-20 23:16 | CONS ---
Date/Time of Note Date/Time of Note DATE: 01/20/17 TIME: 23:15 Assessment/Plan Assessment/Plan Chief Complaint/Hosp Course RECTAL CANCER locally advanced on presentation, s/t chemo/XRT, following by surgery and currently on adjuvant component of chemo ( FLOX) small-bowel obstruction.- RECURRENT CHEMO ON HOLD CLEAR LIQUID PAIN CONTROL SURG F-UP Enterovesical fistula with likely infection of the system. History of hypertension. History of nephrolithiasis. Severe hypoalbuminemia with third spacing. Mild hyponatremia. Problems: Consultation Date/Type/Reason Admit Date/Time Jan 13, 2017 at 14:51 Initial Consult Date 01/14/17 Type of Consultation: [facility] Referring Provider: JM HARRIS MD 24 HR Interval Summary Free Text/Dictation D/W PT AND SLOW PROGRESS Exam/Review of Systems Vital Signs Vitals Vital Signs Date Time Temp Pulse Resp B/P Pulse Ox O2 Delivery O2 Flow Rate FiO2 01/20/17 14:15 97.5 65 18 157/71 96 Intake and Output 01/19/17 01/19/17 01/20/17 15:00 23:00 07:00 Intake Total 50 ml 1200 ml 400 ml Balance 50 ml 1200 ml 400 ml Exam GENERAL: The patient is awake, alert. HEENT: Normocephalic, severe pallor without cyanosis. Tongue is coated, dry. NECK: Supple. No thyromegaly, or bruits, lymphadenopathy. LUNGS: Clinically clear. ABDOMEN: Soft, bowel sounds very hypoactive. EXTREMITIES: 2+ edema. Homans negative. Results Result Diagram: 01/19/17 0600 01/19/17 0544 Results 24 hrs Laboratory Tests Test 01/20/17 17:35 Urine Color CLARA Urine Clarity CLOUDY A Urine pH 6.0 Urine Specific [place] 1.012 Urine Ketones NEGATIVE Urine Nitrite NEGATIVE Urine Bilirubin NEGATIVE Urine Urobilinogen 1+ H Urine Leukocyte Esterase 3+ H Urine Microscopic RBC 50 H Urine Microscopic WBC 134 H Urine Bacteria MANY A Urine Mucus MANY A Urine Hemoglobin 3+ H Urine Glucose NEGATIVE Urine Total Protein 2+ H Medications Medications Current Medications Ondansetron HCl 4 mg 4 mg Q4H PRN IV NAUSEA AND/OR VOMITING Last administered on 01/18/17t 08:21; Admin Dose 4 MG; Start 01/13/17 at 18:00 Ceftriaxone Sodium (Rocephin) 50 ml @ 100 mls/hr Q24H IVPB Last administered on 01/20/17 09:17; Admin Dose 100 MLS/HR; Start 01/14/17 at 08:00 Docusate Sodium (Colace Liquid Cup) 100 mg BID PO Last administered on 21:08; Admin Dose 100 MG; Start 01/15/17 at 12:00 Pantoprazole (Protonix Tab) 40 mg DAILY@06 PO Last administered on 01/20/17 06:02; Admin Dose 40 MG; Start 01/18/17 at 06:00 Al Hydrox/Mg Hydrox/Simethicone (Mag-Al Plus) 30 ml TID PRN PO GASTROINTESTINAL UPSET Last administered on 01/20/17 19:05; Admin Dose 30 ML; Start 01/18/17 at 16:00 Lorazepam (Ativan) 0.5 mg Q4 PRN PO ANXIETY; Start 01/19/17 at 23:30 Clonidine (Catapres) 0.1 mg Q4H PRN PO SBP >=170, or DBP >= 110 Last administered on 01/20/17 06:05; Admin Dose 0.1 MG; Start 01/19/17 at 23:30 Hydromorphone HCl (Dilaudid) 2 mg Q4H PRN IV PAIN; Start 01/20/17 at 23:13 JASMINA PALOMARES MD Jan 20, 2017 23:16
[2017-01-21] MEDS ORDERED: HYDROmorphONE 2 MG/ML SYG IV PRN (01:30)
[2017-01-21 02:42] VITALS: BP 162/72; RESP 18
[2017-01-21] MEDS: HYDROmorphONE 2 MG/ML SYG IV PRN ×6 (03:11→23:35)
[2017-01-21] MEDS: AL HYDROX/MG HYDROX/SIMETH 30 ML CUP PO PRN (03:20)
[2017-01-21] MEDS: PANTOPRAZOLE (EC) 40 MG TAB PO SCH (06:54)
--- NOTE | 2017-01-21 07:06 | PN ---
DATE: 01/20/2017 SUBJECTIVE: The patient is very lethargic with some slurring of speech (patient was anxious last ni ght had to be given 1 dose of Ativan IV 0.5 mg). Denies any abdominal discomfort. Colostomy bag is empty. No fever or chills. PHYSICAL EXAMINATION: GENERAL: Lethargic. Temperature 98, blood pressure 161/68. Last night his pressure was 194/83. HEENT: Mild pallor without cyanosis. CHEST: Clinically clear. ABDOMEN: Mildly distended. Colostomy bag is empty. EXTREMITIES: One plus edema. Amando's negative. LABORATORY DATA: WBC count 8.1, hematocrit 29.5, platelet count 380,000. Sodium 136, potassium 4.3 , BUN 13, creatinine 0.79. IMPRESSION: 1. Stage IV rectal cancer with high-grade small-bowel obstruction. The patient on full liquid pres ently. 2. 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 3. Mild anemia. PLAN: Will discontinue IV Ativan in view of the underlying lethargy. We will also decrease the Dil audid to 1 mg q.4h. p.r.n. I have discussed with patient's regarding his condition. She wants to take him home. We will discuss with Dr. Juárez regarding need for ongoing care. Repeat urinaly sis today. Dictated By: JM HARRIS MD, SR/NTS Conf#: [id number] DID#: [id number]
[2017-01-21 07:30] VITALS: BP 163/75; RESP 18
[2017-01-21] MEDS: DOCUSATE SODIUM 10 MG/ML (10ML CUP) PO SCH ×2 (08:10→20:19)
[2017-01-21] MEDS: CEFTRIAXONE 1 GM/50 ML (PMX) 50 ML IVPB SCH (08:10)
--- NOTE | 2017-01-21 11:04 | PN ---
DATE: 01/21/2017 SUBJECTIVE: Patient continues to have moderate pain in the abdomen. Colostomy site is clean with n o results so far. Complaints of severe hiccups. PHYSICAL EXAMINATION GENERAL: The patient is anxious. VITAL SIGNS: Temperature 97.9, blood pressure 163/75, O2 saturation 98% on room air. HEENT: Head normocephalic. Mild pallor with cyanosis. CHEST: Clinically clear. ABDOMEN: Mildly distended. Bowel sounds hypoactive. No stool noted in the colostomy bag. EXTREMITIES: Two plus edema. Amando's sign is negative. NEUROLOGIC: No localizing or lateralizing signs. IMPRESSION: 1. Stage IV rectal carcinoma with high-grade small-bowel obstruction on full liquids with very mini mal improvement. 2. 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 3. Mild anemia. PLAN: Discussed with Dr. Juárez. Will continue present management and request palliative care cons ultation with Dr. Leigh. I will be away on vacation starting tomorrow, 01/22/2017, and patient will be followed by the [facility] with Dr. Rice. Dictated By: JM HARRIS MD SR/NTS Conf#: [id number] DID#: [id number]
--- NOTE | 2017-01-21 14:49 | PN ---
Date/Time of Note Date/Time of Note DATE: 01/21/17 TIME: 14:45 Assessment/Plan Lines/Catheters [facility] Saline Lock Coates in Place [facility] No Assessment/Plan Assessment/Plan [facility] Progress Note Date of Service: 01/21/2017 Location of Service: [facility] Second floor [facility] Today's Assessment & Plan: Overall stable. Still with partial SBO. Abdomen remains benign, but the patient has not been able to eat for a number of days. No indication for acute surgical intervention. Remains extremely high risk for surgical intervention. Had a long discussion with the patient (no family in the room) and reviewed options. I believe that there is still a chance that the patient's partial SBO will resolve on its own, but as the days are passing, my enthusiasm is doing billing. The issue with surgical intervention is that it is high risk and it will delay any further systemic chemotherapy, which I believe is the only meaningful treatment that we have available to impact the patient's survival. It would be important for the patient to have a full discussion with supportive care therapy and for this reason, I fully support Dr. Leigh's consultation and involvement with the patient's case. I also believe there is a small chance of the patient may be able to tolerate Gastrografin small bowel follow- through which in this case, may be both diagnostic and therapeutic. If the patient has resolution of his small bowel obstruction, we can continue his systemic chemotherapy as an outpatient. If the bowel obstruction continues, and the patient and family are strongly in favor of surgical intervention, I would be open to the idea after we have above interventions and consultations. Discussed with patient in detail and answered all questions. Patient appeared to understand and agreed with plans. With above assessment, I've recommended the following for today: 1. Continue current nonoperative management 2. Gastrografin small bowel follow-through 3. Labs in a.m. 4. Appreciate Dr. Leigh's input 5. Enema through ostomy Thank you again for your great care of this very pleasant patient and wonderful family. If there are any questions, please feel free to call me at [phone]. Nature of presenting problem: High severity Please note that, given the multiple number of diagnoses or management options, the extensive amount and/or complexity of data needed to be reviewed, and I risk of complications and/or morbidity or mortality, this qualifies as high complexity type of decision-making. Disclaimers: 1. Inadvertent spelling and grammatical errors are likely due to electronic health record (EHR)/dictation software used and do not reflect on the quality of delivered patient care. 2. The electronic timestamp recorded on this note does not necessarily reflect the actual date and time of the visit or the service. 3. Portions of this note may have been created through electronic templates and computer algorithms that might bring in information either from the system or from other physicians and providers. Please note that such information may or may not contain errors, the occurrence of which are outside of my control. In general (but not always) this happens either in the beginning or at the end of the note. The portion of the note that I have created are generally done in 1 continuous block of text, flanked at the beginning and at the end by " ", and entered into one field in the EHR. 4. There may be other unanticipated errors in the note that are outside of my control. I can only attest to the portions of the note that I have created. Updated Clinical Summary: The patient is a very pleasant 66-year-old gentleman with comorbidities including hypertension, who was initially admitted to [facility] through ED on 2015 with signs and symptoms consistent with anemia that eventually was shown to be a large, nearly obstructing mass approximately 12 cm from the anal verge up to the area of the rectosigmoid junction on colonoscopy 06/07/2015. Plan at that time was neoadjuvant treatment with chemoradiation followed by restaging and surgical resection. Patient underwent radiation therapy (Dr. Aranda) that ended September 2015 (patient's recollection was November 2015). Discussions with multiple colleagues revealed evidence that the patient had been not following instructions and there were barriers to get the patient to surgical intervention. At least part of the barriers were due to patient factors alone. Patient reported having contacted my office approximately 5 times to try and make an appointment and was told that we "do not accept" his insurance. Careful review of office records showed no documentation of patient calling. Patient also believed that he had had [employer] as his insurance carrier, but his insurance carrier was [employer] (accepted by our program). Patient re-presented to [facility] through ED with constipation, vomiting, abdominal distension and dilated loops of small intestine on 04/01/16. Significant comorbidities included not insignificant malnutrition with BMI 15.8 and dehydration, albumin of 3.6 in the setting of inability to feed enterically. Small area of liver in segment 6 and two very small areas in segment 4a of questionable significance (too small to tell) benign path vs. metastatic disease. We attempted to treat the bowel obstruction with nonoperative management with the hope that the patient would be able to increase his oral intake and improve his nutritional status prior to potentially getting systemic chemotherapy in the neoadjuvant fashion before surgical intervention. Patient very clearly showed us that his bowels were not able to tolerate any meaningful amount of nutritional intake after a few days of this management and for this reason, and after a multidisciplinary discussion, we decided to change our treatment strategy and take the patient to the operating room. + BM 07/21/16. List of operative interventions on 04/12/16: 1. Laparoscopic exploration converted to open exploration 2. Partial colectomy with removal of upper part of rectum and sigmoid colon ( modifier 22) 3. Resection of the end of terminal ileum along with cecum with primary anastomosis 4. Performance of an colostomy using distal descending colon 5. Extensive lysis of adhesions (at least 60 minutes) 6. Intraoperative ultrasound of the liver 7. Abdominal lavage D/c home 04/23/16. Two visits to ED for constipation 06/07 and 06/11/16. Readmitted after a few ED visits in June and July 2016 though ED to [facility] on 07/19/16 with UTI and perhaps partial SBO. Treated non-operatively successfully with treatment of UTI and resolution of partial SBO; d/c home 07/22/16. Readmitted for similar complaints, but was managed nonoperatively. Comorbidities: 1. Rectal malignancy, s/p chemotherapy and radiation June to Nov 2015; obstruction end of terminal ileum as well as at the level of the rectosigmoid junction with aggressive locally advanced rectal cancer; S/p an otherwise uncomplicated but challenging resection of both involved portions of rectosigmoid as well as terminal ileum in the setting of aggressive rectal cancer with local invasion of the pelvis on 04/13/16. 2. Hypertension 3. Cachexia; BMI 17.3 (previously 15.08 Jul 2016); albumin of 2.5 (previously 3.06 Jul 2016) in the setting of inability to feed enterically 4. Colonoscopy June 2015 5. Anxiety 6. Multiple visits to ED and admissions to hospital through July 2016 Subjective: No major events or complaints; still with abdominal discomfort and under control with medications; no n/v/d; no sob or cp; - bowel activity, + activity; still with hiccups; has not really tolerated much oral intake the last few days Objective: Vitals: See below Exam: GENERAL: On exam, the patient was standing up in his room and appeared to be comfortable and in no acute distress. ABDOMEN: Soft, nontender and nondistended. Ostomy was viable; no significant stool or air in the bag. No major edema of the ostomy noted. There are no peritoneal signs or guarding. SKIN: Skin appears to be pink and feels warm to touch. NEUROLOGIC: Patient is awake, alert, and follows commands appropriately. Exam/Review of Systems Vital Signs Vitals Vital Signs Date Time Temp Pulse Resp B/P Pulse Ox O2 Delivery O2 Flow Rate FiO2 01/21/17 07:30 97.9 78 18 163/75 98 Intake and Output 01/20/17 01/20/17 01/21/17 15:00 23:00 07:00 Intake Total 50 ml 800 ml 750 ml Balance 50 ml 800 ml 750 ml Results Result Diagram: 01/19/17 0600 01/19/17 0544 DIVINE BEY M.D. Jan 21, 2017 14:49
[2017-01-21] MEDS ORDERED: NA PHOSPHATE/BIPHOS 133 ML ENEMA PR ONE (15:00)
--- NOTE | 2017-01-21 16:36 | CONS ---
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 History of hypertension. History of nephrolithiasis. Severe hypoalbuminemia with third spacing. Mild hyponatremia. Problems: Consultation Date/Type/Reason Admit Date/Time Jan 13, 2017 at 14:51 Initial Consult Date 01/14/17 [facility] Referring Provider: JM HARRIS MD 24 HR Interval Summary Free Text/Dictation ALL NOTED D/W PRIMARY SERVICE Exam/Review of Systems Vital Signs Vitals Vital Signs Date Time Temp Pulse Resp B/P Pulse Ox O2 Delivery O2 Flow Rate FiO2 01/21/17 07:30 97.9 78 18 163/75 98 Intake and Output 01/20/17 01/20/17 01/21/17 15:00 23:00 07:00 Intake Total 50 ml 800 ml 750 ml Balance 50 ml 800 ml 750 ml Exam GENERAL: The patient is awake, alert. HEENT: Normocephalic, severe pallor without cyanosis. Tongue is coated, dry. NECK: Supple. No thyromegaly, or bruits, lymphadenopathy. LUNGS: Clinically clear. ABDOMEN: Soft, bowel sounds very hypoactive. EXTREMITIES: 2+ edema. Homans negative. Results Result Diagram: 01/19/17 0600 01/19/17 0544 Results 24 hrs Laboratory Tests Test 01/20/17 17:35 Urine Color CLARA Urine Clarity CLOUDY A Urine pH 6.0 Urine Specific [place] 1.012 Urine Ketones NEGATIVE Urine Nitrite NEGATIVE Urine Bilirubin NEGATIVE Urine Urobilinogen 1+ H Urine Leukocyte Esterase 3+ H Urine Microscopic RBC 50 H Urine Microscopic WBC 134 H Urine Bacteria MANY A Urine Mucus MANY A Urine Hemoglobin 3+ H Urine Glucose NEGATIVE Urine Total Protein 2+ H Medications Medications Current Medications Ondansetron HCl 4 mg 4 mg Q4H PRN IV NAUSEA AND/OR VOMITING Last administered on 01/18/17t 08:21; Admin Dose 4 MG; Start 01/13/17 at 18:00 Ceftriaxone Sodium (Rocephin) 50 ml @ 100 mls/hr Q24H IVPB Last administered on 01/21/17 08:10; Admin Dose 100 MLS/HR; Start 01/14/17 at 08:00 Docusate Sodium (Colace Liquid Cup) 100 mg BID PO Last administered on 08:10; Admin Dose 100 MG; Start 01/15/17 at 12:00 Pantoprazole (Protonix Tab) 40 mg DAILY@06 PO Last administered on 01/21/17 06:54; Admin Dose 40 MG; Start 01/18/17 at 06:00 Al Hydrox/Mg Hydrox/Simethicone (Mag-Al Plus) 30 ml TID PRN PO GASTROINTESTINAL UPSET Last administered on 01/21/17 03:20; Admin Dose 30 ML; Start 01/18/17 at 16:00 Lorazepam (Ativan) 0.5 mg Q4 PRN PO ANXIETY; Start 01/19/17 at 23:30 Clonidine (Catapres) 0.1 mg Q4H PRN PO SBP >=170, or DBP >= 110 Last administered on 01/20/17 06:05; Admin Dose 0.1 MG; Start 01/19/17 at 23:30 Hydromorphone HCl (Dilaudid) 2 mg Q4H PRN IV PAIN Last administered on 15:07; Admin Dose 2 MG; Start 01/20/17 at 23:13 JASMINA PALOMARES MD Jan 21, 2017 16:36
[2017-01-21 19:42] VITALS: BP 167/76; RESP 16
[2017-01-21] MEDS: ONDANSETRON 4 MG INJ IV PRN (23:38)
[2017-01-22 02:04] VITALS: BP 166/81; RESP 18
[2017-01-22] MEDS: HYDROmorphONE 2 MG/ML SYG IV PRN ×5 (03:34→21:41)
[2017-01-22 05:51] LABS: BASOPHILS % 0.3 % (0.0-2.0); EOSINOPHILS % 0.1 % (0.0-7.0); HEMATOCRIT 32.6 % (42.0-52.0); HEMOGLOBIN 10.2 g/dl (14.0-18.0); LYMPHOCYTES # 0.8 10^3/ul (0.8-2.9); LYMPHOCYTES % 10.6 % (15.0-51.0); MEAN CORPUSCULAR HEMOGLOBIN 25.6 pg (29.0-33.0); MEAN CORPUSCULAR HGB CONC 31.3 g/dl (32.0-37.0); MEAN CORPUSCULAR VOLUME 81.9 fl (82.0-101.0); MEAN PLATELET VOLUME 8.9 fl (7.4-10.4); MONOCYTE # 0.6 10^3/ul (0.3-0.9); MONOCYTES % 7.1 % (0.0-11.0); NEUTROPHIL # 6.3 10^3/ul (1.6-7.5); NEUTROPHILS % 81.5 % (39.0-77.0); PLATELET COUNT 384 10^3/UL (140-415); RED BLOOD COUNT 3.98 10^6/ul (4.70-6.10); RED CELL DISTRIBUTION WIDTH 16.9 % (11.5-14.5); WHITE BLOOD COUNT 7.7 10^3/ul (4.8-10.8)
[2017-01-22] MEDS: PANTOPRAZOLE (EC) 40 MG TAB PO SCH (06:00)
[2017-01-22 06:18] LABS: CALCIUM 8.2 mg/dl (8.4-10.2); CREATININE 0.78 mg/dl (0.61-1.24); MAGNESIUM 2.1 mg/dl (1.7-2.5); POTASSIUM 3.9 mmol/L (3.5-5.1)
[2017-01-22] MEDS: CEFTRIAXONE 1 GM/50 ML (PMX) 50 ML IVPB SCH (07:39)
[2017-01-22 07:40] VITALS: BP 174/81; RESP 18
[2017-01-22] MEDS: DOCUSATE SODIUM 10 MG/ML (10ML CUP) PO SCH ×2 (08:00→21:00)
[2017-01-22 08:28] VITALS: BP 167/77; RESP 18
[2017-01-22] MEDS ORDERED: DIATR MEGLU/DIATRIZOATE SODIUM 120 ML BTL ONE ×2 (11:13)
--- NOTE | 2017-01-22 14:35 | PN ---
Date/Time of Note Date/Time of Note DATE: 01/22/17 TIME: 14:24 Assessment/Plan Lines/Catheters IV C[facility] Type (from [facility]): Saline Lock Coates in Place (from [facility]): No Assessment/Plan Assessment/Plan [facility] Progress Note Date of Service: 01/22/2017 Location of Service: [facility] Second floor [facility] Today's Assessment & Plan: Overall stable. Still with partial SBO. Abdomen remains benign. Small bowel follow-through final report is still pending, but the contrast appears to traverse at least most of the distance through the small intestine. I am still not convinced that the patient will have a good outcome and I do not believe that he completely understands the gravity of the situation. Still hopeful that we can manage the patient nonoperatively. Discussed with patient in detail and answered all questions. Patient appeared to understand and agreed with plans. I also left a message for the patient's on the telephone that we have available on the chart. With above assessment, I've recommended the following for today: 1. Continue current nonoperative management 2. Follow-up on the final report for the Gastrografin small bowel follow- through 3. Labs in a.m. 4. Appreciate Dr. Leigh's input 5. Continue aggressive bowel regimen with prn enema through ostomy Thank you again for your great care of this very pleasant patient and wonderful family. If there are any questions, please feel free to call me at [phone]. Nature of presenting problem: High severity Please note that, given the multiple number of diagnoses or management options, the extensive amount and/or complexity of data needed to be reviewed, and I risk of complications and/or morbidity or mortality, this qualifies as high complexity type of decision-making. Disclaimers: 1. Inadvertent spelling and grammatical errors are likely due to electronic health record (EHR)/dictation software used and do not reflect on the quality of delivered patient care. 2. The electronic timestamp recorded on this note does not necessarily reflect the actual date and time of the visit or the service. 3. Portions of this note may have been created through electronic templates and computer algorithms that might bring in information either from the system or from other physicians and providers. Please note that such information may or may not contain errors, the occurrence of which are outside of my control. In general (but not always) this happens either in the beginning or at the end of the note. The portion of the note that I have created are generally done in 1 continuous block of text, flanked at the beginning and at the end by " ", and entered into one field in the EHR. 4. There may be other unanticipated errors in the note that are outside of my control. I can only attest to the portions of the note that I have created. Updated Clinical Summary: The patient is a very pleasant 66-year-old gentleman with comorbidities including hypertension, who was initially admitted to [facility] through ED on 2015 with signs and symptoms consistent with anemia that eventually was shown to be a large, nearly obstructing mass approximately 12 cm from the anal verge up to the area of the rectosigmoid junction on colonoscopy 06/07/2015. Plan at that time was neoadjuvant treatment with chemoradiation followed by restaging and surgical resection. Patient underwent radiation therapy (Dr. Aranda) that ended September 2015 (patient's recollection was November 2015). Discussions with multiple colleagues revealed evidence that the patient had been not following instructions and there were barriers to get the patient to surgical intervention. At least part of the barriers were due to patient factors alone. Patient reported having contacted my office approximately 5 times to try and make an appointment and was told that we "do not accept" his insurance. Careful review of office records showed no documentation of patient calling. Patient also believed that he had had [employer] as his insurance carrier, but his insurance carrier was [employer] (accepted by our program). Patient re-presented to [facility] through ED with constipation, vomiting, abdominal distension and dilated loops of small intestine on 04/01/16. Significant comorbidities included not insignificant malnutrition with BMI 15.8 and dehydration, albumin of 3.6 in the setting of inability to feed enterically. Small area of liver in segment 6 and two very small areas in segment 4a of questionable significance (too small to tell) benign path vs. metastatic disease. We attempted to treat the bowel obstruction with nonoperative management with the hope that the patient would be able to increase his oral intake and improve his nutritional status prior to potentially getting systemic chemotherapy in the neoadjuvant fashion before surgical intervention. Patient very clearly showed us that his bowels were not able to tolerate any meaningful amount of nutritional intake after a few days of this management and for this reason, and after a multidisciplinary discussion, we decided to change our treatment strategy and take the patient to the operating room. + BM 07/21/16. List of operative interventions on 04/12/16: 1. Laparoscopic exploration converted to open exploration 2. Partial colectomy with removal of upper part of rectum and sigmoid colon ( modifier 22) 3. Resection of the end of terminal ileum along with cecum with primary anastomosis 4. Performance of an colostomy using distal descending colon 5. Extensive lysis of adhesions (at least 60 minutes) 6. Intraoperative ultrasound of the liver 7. Abdominal lavage D/c home 04/23/16. Two visits to ED for constipation 06/07 and 06/11/16. Readmitted after a few ED visits in June and July 2016 though ED to [facility] on 07/19/16 with UTI and perhaps partial SBO. Treated non-operatively successfully with treatment of UTI and resolution of partial SBO; d/c home 07/22/16. Readmitted for similar complaints, but was managed nonoperatively. Comorbidities: 1. Rectal malignancy, s/p chemotherapy and radiation June to Nov 2015; obstruction end of terminal ileum as well as at the level of the rectosigmoid junction with aggressive locally advanced rectal cancer; S/p an otherwise uncomplicated but challenging resection of both involved portions of rectosigmoid as well as terminal ileum in the setting of aggressive rectal cancer with local invasion of the pelvis on 04/13/16. 2. Hypertension 3. Cachexia; BMI 17.3 (previously 15.08 Jul 2016); albumin of 2.5 (previously 3.06 Jul 2016) in the setting of inability to feed enterically 4. Colonoscopy June 2015 5. Anxiety 6. Multiple visits to ED and admissions to hospital through July 2016 Subjective: No major events or complaints; still with abdominal discomfort and under control with medications; no n/v/d; no sob or cp; + bowel activity, + activity; still with hiccups; has not really tolerated much oral intake the last few days Objective: Vitals: See below Exam: GENERAL: On exam, the patient was standing up in his room and appeared to be comfortable and in no acute distress. ABDOMEN: Soft, nontender and nondistended. Ostomy was viable; no significant stool or air in the bag. No major edema of the ostomy noted. There are no peritoneal signs or guarding. SKIN: Skin appears to be pink and feels warm to touch. NEUROLOGIC: Patient is awake, alert, and follows commands appropriately. Exam/Review of Systems Vital Signs Vitals Vital Signs Date Time Temp Pulse Resp B/P Pulse Ox O2 Delivery O2 Flow Rate FiO2 01/22/17 08:28 98.6 80 18 167/77 96 Intake and Output 01/21/17 01/21/17 01/22/17 15:00 23:00 07:00 Intake Total 50 ml 1360 ml 560 ml Balance 50 ml 1360 ml 560 ml Results Result Diagram: 01/22/17 0535 01/22/17 0535 DIVINE BEY M.D. Jan 22, 2017 14:35
--- NOTE | 2017-01-22 15:05 | CONS ---
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 History of hypertension. History of nephrolithiasis. Severe hypoalbuminemia with third spacing. Mild hyponatremia. Problems: Consultation Date/Type/Reason Admit Date/Time Jan 13, 2017 at 14:51 Initial Consult Date 01/14/17 [facility] Referring Provider: JM HARRIS MD 24 HR Interval Summary Free Text/Dictation ALL NOTED Exam/Review of Systems Vital Signs Vitals Vital Signs Date Time Temp Pulse Resp B/P Pulse Ox O2 Delivery O2 Flow Rate FiO2 01/22/17 08:28 98.6 80 18 167/77 96 Intake and Output 01/21/17 01/21/17 01/22/17 15:00 23:00 07:00 Intake Total 50 ml 1360 ml 560 ml Balance 50 ml 1360 ml 560 ml Exam GENERAL: The patient is awake, alert. HEENT: Normocephalic, severe pallor without cyanosis. Tongue is coated, dry. NECK: Supple. No thyromegaly, or bruits, lymphadenopathy. LUNGS: Clinically clear. ABDOMEN: Soft, bowel sounds very hypoactive. EXTREMITIES: 2+ edema. Homans negative. Results Result Diagram: 01/22/17 0535 01/22/17 0535 Results 24 hrs Laboratory Tests Test 01/22/17 05:35 White Blood Count 7.7 Red Blood Count 3.98 L Hemoglobin 10.2 L Hematocrit 32.6 L Mean Corpuscular Volume 81.9 L Mean Corpuscular Hemoglobin 25.6 L Mean Corpuscular Hemoglobin Concent 31.3 L Red Cell Distribution Width 16.9 H Platelet Count 384 Mean Platelet Volume 8.9 Neutrophils % 81.5 H Lymphocytes % 10.6 L Monocytes % 7.1 Eosinophils % 0.1 Basophils % 0.3 Nucleated Red Blood Cells % 0.0 Neutrophils # 6.3 Lymphocytes # 0.8 Monocytes # 0.6 Eosinophils # 0.0 Basophils # 0.0 Nucleated Red Blood Cells # 0.0 Sodium Level 136 Potassium Level 3.9 Chloride Level 101 Carbon Dioxide Level 28 Anion Gap 11 Blood Urea Nitrogen 18 Creatinine 0.78 Glucose Level 80 Calcium Level 8.2 L Magnesium Level 2.1 Medications Medications Current Medications Ondansetron HCl 4 mg 4 mg Q4H PRN IV NAUSEA AND/OR VOMITING Last administered on 01/21/17 23:38; Admin Dose 4 MG; Start 01/13/17 at 18:00 Ceftriaxone Sodium (Rocephin) 50 ml @ 100 mls/hr Q24H IVPB Last administered on 01/22/17 07:39; Admin Dose 100 MLS/HR; Start 01/14/17 at 08:00 Docusate Sodium (Colace Liquid Cup) 100 mg BID PO Last administered on 08:00; Admin Dose 100 MG; Start 01/15/17 at 12:00 Pantoprazole (Protonix Tab) 40 mg DAILY@06 PO Last administered on 01/21/17 06:54; Admin Dose 40 MG; Start 01/18/17 at 06:00 Al Hydrox/Mg Hydrox/Simethicone (Mag-Al Plus) 30 ml TID PRN PO GASTROINTESTINAL UPSET Last administered on 01/21/17 03:20; Admin Dose 30 ML; Start 01/18/17 at 16:00 Lorazepam (Ativan) 0.5 mg Q4 PRN PO ANXIETY; Start 01/19/17 at 23:30 Clonidine (Catapres) 0.1 mg Q4H PRN PO SBP >=170, or DBP >= 110 Last administered on 01/20/17 06:05; Admin Dose 0.1 MG; Start 01/19/17 at 23:30 Hydromorphone HCl (Dilaudid) 2 mg Q4H PRN IV PAIN Last administered on 12:49; Admin Dose 2 MG; Start 01/20/17 at 23:13 JASMINA PALOMARES MD Jan 22, 2017 15:05
--- NOTE | 2017-01-22 15:38 | CONS ---
Date/Time of Note Date/Time of Note DATE: 01/22/17 TIME: 15:35 Consult Date/Type/Reason Admit Date/Time Jan 13, 2017 at 14:51 Initial Consult Date 01/14/17 Type of Consultation: Internal medicine Ordering Provider: JM HARRIS MD Subjective Patient awake alert oriented. Comfortable. Dyspepsia. Objective Vital Signs Date Time Temp Pulse Resp B/P Pulse Ox O2 Delivery O2 Flow Rate FiO2 01/22/17 08:28 98.6 80 18 167/77 96 Intake and Output 01/21/17 01/21/17 01/22/17 15:00 23:00 07:00 Intake Total 50 ml 1360 ml 560 ml Balance 50 ml 1360 ml 560 ml Exam GENERAL: Thin elderly gentleman comfortable at rest no acute distress VITAL SIGNS: per chart NECK: Supple. No JVD or lymphadenopathy. CARDIAC EXAM: S1, S2. No added sounds or murmurs. CHEST: clear bilaterally, No added sounds, rales or wheezes ABDOMEN: Soft, nontender. No guarding or rebound. Colostomy in place. EXTREMITIES: No cyanosis, clubbing, edema +2 NEUROLOGIC: Generalized weakness. No focal deficits. Results/Medications Result Diagram: 01/22/17 0535 01/22/17 0535 Results 24 hrs Laboratory Tests Test 01/22/17 05:35 White Blood Count 7.7 Red Blood Count 3.98 L Hemoglobin 10.2 L Hematocrit 32.6 L Mean Corpuscular Volume 81.9 L Mean Corpuscular Hemoglobin 25.6 L Mean Corpuscular Hemoglobin Concent 31.3 L Red Cell Distribution Width 16.9 H Platelet Count 384 Mean Platelet Volume 8.9 Neutrophils % 81.5 H Lymphocytes % 10.6 L Monocytes % 7.1 Eosinophils % 0.1 Basophils % 0.3 Nucleated Red Blood Cells % 0.0 Neutrophils # 6.3 Lymphocytes # 0.8 Monocytes # 0.6 Eosinophils # 0.0 Basophils # 0.0 Nucleated Red Blood Cells # 0.0 Sodium Level 136 Potassium Level 3.9 Chloride Level 101 Carbon Dioxide Level 28 Anion Gap 11 Blood Urea Nitrogen 18 Creatinine 0.78 Glucose Level 80 Calcium Level 8.2 L Magnesium Level 2.1 Medications Current Medications Ondansetron HCl 4 mg 4 mg Q4H PRN IV NAUSEA AND/OR VOMITING Last administered on 01/21/17t 23:38; Admin Dose 4 MG; Start 01/13/17 at 18:00 Ceftriaxone Sodium (Rocephin) 50 ml @ 100 mls/hr Q24H IVPB Last administered on 01/22/17 07:39; Admin Dose 100 MLS/HR; Start 01/14/17 at 08:00 Docusate Sodium (Colace Liquid Cup) 100 mg BID PO Last administered on 08:00; Admin Dose 100 MG; Start 01/15/17 at 12:00 Pantoprazole (Protonix Tab) 40 mg DAILY@06 PO Last administered on 01/21/17 06:54; Admin Dose 40 MG; Start 01/18/17 at 06:00 Al Hydrox/Mg Hydrox/Simethicone (Mag-Al Plus) 30 ml TID PRN PO GASTROINTESTINAL UPSET Last administered on 01/21/17 03:20; Admin Dose 30 ML; Start 01/18/17 at 16:00 Lorazepam (Ativan) 0.5 mg Q4 PRN PO ANXIETY; Start 01/19/17 at 23:30 Clonidine (Catapres) 0.1 mg Q4H PRN PO SBP >=170, or DBP >= 110 Last administered on 01/20/17 06:05; Admin Dose 0.1 MG; Start 01/19/17 at 23:30 Hydromorphone HCl (Dilaudid) 2 mg Q4H PRN IV PAIN Last administered on 12:49; Admin Dose 2 MG; Start 01/20/17 at 23:13 Assessment/Plan Chief Complaint/Hosp Course Assessment 1. Stage IV rectal CA 2. Status post bowel obstruction 3. Significant cachexia 4. E. coli UTI Plan 1. Continue to encourage out of bed 2. Appreciate hematology oncology and surgical recommendations 3. surgical manager evaluation discharge planning process. Discussed with patient at length at bedside. Problems: IV[facility]TE DUMONT MD, [facility] Jan 22, 2017 15:38
[2017-01-22 16:41] VITALS: BP 136/64; RESP 18
[2017-01-22 20:00] VITALS: BP 160/73; RESP 19
--- NOTE | 2017-01-22 20:21 | RADRPT ---
PROCEDURE: XR small bowel series CLINICAL INDICATION: Small bowel obstruction TECHNIQUE: The patient ingested oral contrast and subsequent overhead radiographs were performed. 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 Ingested contrast is seen in the unremarkable stomach, duodenum and proximal jejunum and in dilate d loops of the jejunum and possibly ileum with maximal diameter approximately 6.6 cm. Contrast is a pparent in nondilated small bowel in the abdomen and pelvis by 2 hours post ingestion and in nondila partha ascending colon by 8.5 hours post ingestion. IMPRESSION: Consistent with high-grade partial apparent mid small bowel obstruction. Please see above. RPTAT: HJES .Andrea Meraz MD, Date Time Electronically viewed and signed by .Andrea Meraz MD, on 01/22/2017 20:21 .S/
[2017-01-23] MEDS: HYDROmorphONE 2 MG/ML SYG IV PRN ×6 (01:44→21:47)
[2017-01-23 02:22] VITALS: BP 153/74; RESP 17
[2017-01-23] MEDS: PANTOPRAZOLE (EC) 40 MG TAB PO SCH (05:42)
[2017-01-23 07:45] VITALS: BP 174/81; RESP 18
[2017-01-23] MEDS: CEFTRIAXONE 1 GM/50 ML (PMX) 50 ML IVPB SCH (08:44)
[2017-01-23] MEDS: DOCUSATE SODIUM 10 MG/ML (10ML CUP) PO SCH ×2 (09:00→21:02)
[2017-01-23 09:44] VITALS: BP 154/68; PULSE 61
[2017-01-23] MEDS: ONDANSETRON 4 MG INJ IV PRN ×2 (12:52→20:58)
--- NOTE | 2017-01-23 13:03 | CONS ---
Date/Time of Note Date/Time of Note DATE: 01/23/17 TIME: 13:03 Consult Date/Type/Reason Admit Date/Time Jan 13, 2017 at 14:51 Initial Consult Date 01/14/17 Type of Consultation: Internal medicine Ordering Provider: JM HARRIS MD Subjective Patient feels better. Significant output from ostomy. Tolerating soft diet. Ambulating. Still complaining of mild abdominal discomfort. Objective Vital Signs Date Time Temp Pulse Resp B/P Pulse Ox O2 Delivery O2 Flow Rate FiO2 01/23/17 09:44 61 154/68 01/23/17 07:45 97.9 18 97 Intake and Output 01/22/17 01/22/17 01/23/17 15:00 23:00 07:00 Intake Total 50 ml 0 ml Balance 50 ml 0 ml Exam GENERAL: Thin elderly gentleman comfortable at rest no acute distress VITAL SIGNS: per chart NECK: Supple. No JVD or lymphadenopathy. CARDIAC EXAM: S1, S2. No added sounds or murmurs. CHEST: clear bilaterally, No added sounds, rales or wheezes ABDOMEN: Soft, nontender. No guarding or rebound. Colostomy in place. EXTREMITIES: No cyanosis, clubbing, edema +2 NEUROLOGIC: Generalized weakness. No focal deficits. Results/Medications Result Diagram: 01/22/17 0535 01/22/17 0535 Medications Current Medications Ondansetron HCl 4 mg 4 mg Q4H PRN IV NAUSEA AND/OR VOMITING Last administered on 01/23/17 12:52; Admin Dose 4 MG; Start 01/13/17 at 18:00 Ceftriaxone Sodium (Rocephin) 50 ml @ 100 mls/hr Q24H IVPB Last administered on 01/23/17 08:44; Admin Dose 100 MLS/HR; Start 01/14/17 at 08:00 Docusate Sodium (Colace Liquid Cup) 100 mg BID PO Last administered on 08:00; Admin Dose 100 MG; Start 01/15/17 at 12:00 Pantoprazole (Protonix Tab) 40 mg DAILY@06 PO Last administered on 01/23/17 05:42; Admin Dose 40 MG; Start 01/18/17 at 06:00 Al Hydrox/Mg Hydrox/Simethicone (Mag-Al Plus) 30 ml TID PRN PO GASTROINTESTINAL UPSET Last administered on 01/21/17 03:20; Admin Dose 30 ML; Start 01/18/17 at 16:00 Lorazepam (Ativan) 0.5 mg Q4 PRN PO ANXIETY; Start 01/19/17 at 23:30 Clonidine (Catapres) 0.1 mg Q4H PRN PO SBP >=170, or DBP >= 110 Last administered on 01/20/17 06:05; Admin Dose 0.1 MG; Start 01/19/17 at 23:30 Hydromorphone HCl (Dilaudid) 2 mg Q4H PRN IV PAIN Last administered on 09:30; Admin Dose 2 MG; Start 01/20/17 at 23:13 Assessment/Plan Chief Complaint/Hosp Course Assessment 1. Stage IV rectal CA 2. Status post bowel obstruction 3. Significant cachexia 4. E. coli UTI Plan 1. Continue to encourage out of bed 2. Appreciate hematology oncology and surgical recommendations 3. manager drug safety evaluation discharge planning process. Discharge planning. Anticipate home tomorrow. Problems: [facility]ONT [facility] Jan 23, 2017 13:03
[2017-01-23 14:18] VITALS: BP 158/67; RESP 16
[2017-01-23 20:28] VITALS: BP 147/62; RESP 18
[2017-01-24] MEDS: HYDROmorphONE 2 MG/ML SYG IV PRN ×6 (02:06→23:46)
[2017-01-24] MEDS: AL HYDROX/MG HYDROX/SIMETH 30 ML CUP PO PRN (02:10)
[2017-01-24 02:17] VITALS: BP 149/72; RESP 18
[2017-01-24] MEDS: PANTOPRAZOLE (EC) 40 MG TAB PO SCH (06:11)
[2017-01-24] MEDS: CEFTRIAXONE 1 GM/50 ML (PMX) 50 ML IVPB SCH (07:41)
[2017-01-24 08:00] VITALS: BP 145/70; RESP 17
[2017-01-24] MEDS: DOCUSATE SODIUM 10 MG/ML (10ML CUP) PO SCH ×2 (09:40→21:31)
--- NOTE | 2017-01-24 11:27 | PDOCDIS ---
Discharge Instructions DIAGNOSIS Discharge Diagnosis Rectal CA. Bowel obstruction CONDITION Patient Condition: Fair HOME CARE INSTRUCTIONS: Special Diet: full liquid, advance as tolerated. ACTIVITY: Activity Restrictions: Slowly Increase Activity Bathing Restrictions: Shower FOLLOW UP/APPOINTMENTS Follow-up Plan IVETTE Nicholson Dr, MD, [facility] Jan 24, 2017 11:27
--- NOTE | 2017-01-24 11:48 | PN ---
Date/Time of Note Date/Time of Note DATE: 01/24/17 TIME: 11:44 Assessment/Plan Lines/Catheters IV Catheter Type (from [facility]): Saline Lock Coates in Place (from [facility]): No Assessment/Plan Assessment/Plan [facility] Progress Note Date of Service: 01/24/2017 Location of Service: [facility] Second floor [facility] Today's Assessment & Plan: Overall stable. Still with partial SBO. Abdomen remains benign. Doubt that patient will be able to tolerate any meaningful amount of calories, and remains at high risk for dehydration, but need to try to see if his GI tract can tolerate adequate oral intake. Started soft diet today. If he tolerates, may d/ c home. Otherwise, may have to accept high risk surgery for definitive, but palliative, care; alternatively, can discuss options of hospice. Discussed with patient in detail and answered all questions. Patient appeared to understand and agreed with plans. With above assessment, I've recommended the following for today: 1. Continue current nonoperative management 2. Soft diet 3. Labs in a.m. 4. Appreciate Dr. Leigh's input 5. Continue aggressive bowel regimen with prn enema through ostomy Thank you again for your great care of this very pleasant patient and wonderful family. If there are any questions, please feel free to call me at [phone]. Nature of presenting problem: High severity Please note that, given the multiple number of diagnoses or management options, the extensive amount and/or complexity of data needed to be reviewed, and I risk of complications and/or morbidity or mortality, this qualifies as high complexity type of decision-making. Disclaimers: 1. Inadvertent spelling and grammatical errors are likely due to electronic health record (EHR)/dictation software used and do not reflect on the quality of delivered patient care. 2. The electronic timestamp recorded on this note does not necessarily reflect the actual date and time of the visit or the service. 3. Portions of this note may have been created through electronic templates and computer algorithms that might bring in information either from the system or from other physicians and providers. Please note that such information may or may not contain errors, the occurrence of which are outside of my control. In general (but not always) this happens either in the beginning or at the end of the note. The portion of the note that I have created are generally done in 1 continuous block of text, flanked at the beginning and at the end by " ", and entered into one field in the EHR. 4. There may be other unanticipated errors in the note that are outside of my control. I can only attest to the portions of the note that I have created. Updated Clinical Summary: The patient is a very pleasant 66-year-old gentleman with comorbidities including hypertension, who was initially admitted to [facility] through ED on 2015 with signs and symptoms consistent with anemia that eventually was shown to be a large, nearly obstructing mass approximately 12 cm from the anal verge up to the area of the rectosigmoid junction on colonoscopy 06/07/2015. Plan at that time was neoadjuvant treatment with chemoradiation followed by restaging and surgical resection. Patient underwent radiation therapy (Dr. Aranda) that ended September 2015 (patient's recollection was November 2015). Discussions with multiple colleagues revealed evidence that the patient had been not following instructions and there were barriers to get the patient to surgical intervention. At least part of the barriers were due to patient factors alone. Patient reported having contacted my office approximately 5 times to try and make an appointment and was told that we "do not accept" his insurance. Careful review of office records showed no documentation of patient calling. Patient also believed that he had had [employer] as his insurance carrier, but his insurance carrier was [employer] (accepted by our program). Patient re-presented to [facility] through ED with constipation, vomiting, abdominal distension and dilated loops of small intestine on 04/01/16. Significant comorbidities included not insignificant malnutrition with BMI 15.8 and dehydration, albumin of 3.6 in the setting of inability to feed enterically. Small area of liver in segment 6 and two very small areas in segment 4a of questionable significance (too small to tell) benign path vs. metastatic disease. We attempted to treat the bowel obstruction with nonoperative management with the hope that the patient would be able to increase his oral intake and improve his nutritional status prior to potentially getting systemic chemotherapy in the neoadjuvant fashion before surgical intervention. Patient very clearly showed us that his bowels were not able to tolerate any meaningful amount of nutritional intake after a few days of this management and for this reason, and after a multidisciplinary discussion, we decided to change our treatment strategy and take the patient to the operating room. + BM 07/21/16. List of operative interventions on 04/12/16: 1. Laparoscopic exploration converted to open exploration 2. Partial colectomy with removal of upper part of rectum and sigmoid colon ( modifier 22) 3. Resection of the end of terminal ileum along with cecum with primary anastomosis 4. Performance of an colostomy using distal descending colon 5. Extensive lysis of adhesions (at least 60 minutes) 6. Intraoperative ultrasound of the liver 7. Abdominal lavage D/c home 04/23/16. Two visits to ED for constipation 06/07 and 06/11/16. Readmitted after a few ED visits in June and July 2016 though ED to [facility] on 07/19/16 with UTI and perhaps partial SBO. Treated non-operatively successfully with treatment of UTI and resolution of partial SBO; d/c home 07/22/16. Readmitted for similar complaints, but was managed nonoperatively. Comorbidities: 1. Rectal malignancy, s/p chemotherapy and radiation June to Nov 2015; obstruction end of terminal ileum as well as at the level of the rectosigmoid junction with aggressive locally advanced rectal cancer; S/p an otherwise uncomplicated but challenging resection of both involved portions of rectosigmoid as well as terminal ileum in the setting of aggressive rectal cancer with local invasion of the pelvis on 04/13/16. 2. Hypertension 3. Cachexia; BMI 17.3 (previously 15.08 Jul 2016); albumin of 2.5 (previously 3.06 Jul 2016) in the setting of inability to feed enterically 4. Colonoscopy June 2015 5. Anxiety 6. Multiple visits to ED and admissions to hospital through July 2016 Subjective: No major events or complaints; still with abdominal discomfort and under control with medications; no n/v/d; no sob or cp; + bowel activity, + activity; no further issues with hiccups; has not really tolerated much oral intake the last few days; did have several BM's after SBFT Objective: Vitals: See below Exam: GENERAL: On exam, the patient was standing up in his room and appeared to be comfortable and in no acute distress. ABDOMEN: Soft, nontender and nondistended. Ostomy was viable; no significant stool or air in the bag. No major edema of the ostomy noted. There are no peritoneal signs or guarding. SKIN: Skin appears to be pink and feels warm to touch. NEUROLOGIC: Patient is awake, alert, and follows commands appropriately. Exam/Review of Systems Vital Signs Vitals Vital Signs Date Time Temp Pulse Resp B/P Pulse Ox O2 Delivery O2 Flow Rate FiO2 01/24/17 02:17 97.6 65 18 149/72 98 Intake and Output 01/23/17 01/23/17 01/24/17 14:59 22:59 06:59 Intake Total 50 ml 1040 ml 1120 ml Balance 50 ml 1040 ml 1120 ml Results Result Diagram: 01/22/17 0535 01/22/17 0535 DIVINE BEY M.D. Jan 24, 2017 11:48
--- NOTE | 2017-01-24 16:50 | DS ---
DATE OF ADMISSION: 01/13/2017 DATE OF DISCHARGE: 01/24/2017 DISCHARGE DIAGNOSES: Small-bowel obstruction. CONDITION ON DISCHARGE: Fair. ACTIVITY: As tolerated. HOSPITAL COURSE: This is an unfortunate, very pleasant 66-year-old gentleman with stage IV rectal C A, who has had multiple admissions for small-bowel obstruction and was admitted this time with incre asing abdominal discomfort and decreased ileostomy output. In addition, his course was complicated by E. coli UTI. The patient was treated with ceftriaxone and in addition evaluated by Dr. Dustin hutton and Dr. Kisha Zapien. Gastrografin follow through was performed and enema also given. The p atient had subsequent significant output from ostomy and is now tolerating clear liquid diet with mi ld chronic abdominal discomfort, but no nausea or vomiting. No fever or chills. He is ambulating w ithout assistance. DISCHARGE MEDICATIONS: White count was 7.7, hemoglobin 10.2, platelets 384, BUN 18, creatinine 0.78. DISCHARGE INSTRUCTIONS: 1. Follow up with primary care physician, Dr. Urena. 2. Oncologist, Dr. Kisha Zapien. 3. Return to the hospital with increasing abdominal pain, nausea, vomiting. DISCHARGE MEDICATIONS: Dilaudid 2 mg p.o. q.6h. p.r.n. seven day supply only . Dictated By: IVETTE PRIEST/KEVIN Conf#: [id number] DID#: [id number]
[2017-01-24] MEDS: ONDANSETRON 4 MG INJ IV PRN (17:31)
[2017-01-24 19:36] VITALS: BP 106/70; RESP 19
[2017-01-24 19:42] VITALS: BP 163/83; RESP 20
[2017-01-25] MEDS: ONDANSETRON 4 MG INJ IV PRN ×2 (00:43→10:33)
[2017-01-25 02:07] VITALS: BP 146/78; RESP 18
[2017-01-25] MEDS: HYDROmorphONE 2 MG/ML SYG IV PRN ×5 (03:45→20:00)
[2017-01-25] MEDS: AL HYDROX/MG HYDROX/SIMETH 30 ML CUP PO PRN (04:19)
[2017-01-25] MEDS: PANTOPRAZOLE (EC) 40 MG TAB PO SCH (05:36)
[2017-01-25] MEDS: CEFTRIAXONE 1 GM/50 ML (PMX) 50 ML IVPB SCH (07:49)
[2017-01-25 09:54] VITALS: BP 165/76; RESP 17
[2017-01-25] MEDS: DOCUSATE SODIUM 10 MG/ML (10ML CUP) PO SCH ×2 (10:33→20:03)
--- NOTE | 2017-01-25 11:40 | CONS ---
Date/Time of Note Date/Time of Note DATE: 01/25/17 TIME: 11:40 Consult Date/Type/Reason Admit Date/Time Jan 13, 2017 at 14:51 Initial Consult Date 01/14/17 Type of Consultation: Internal medicine Ordering Provider: JM HARRIS MD Subjective Patient stable. Tolerating soft diet. Mild abdominal discomfort however no nausea vomiting. Ostomy continues to remain functional. Objective Vital Signs Date Time Temp Pulse Resp B/P Pulse Ox O2 Delivery O2 Flow Rate FiO2 01/25/17 09:54 97.9 60 17 165/76 95 Intake and Output 01/24/17 01/24/17 01/25/17 15:00 23:00 07:00 Intake Total 50 ml 480 ml 790 ml Balance 50 ml 480 ml 790 ml Exam GENERAL: Thin elderly gentleman comfortable at rest no acute distress VITAL SIGNS: per chart NECK: Supple. No JVD or lymphadenopathy. CARDIAC EXAM: S1, S2. No added sounds or murmurs. CHEST: clear bilaterally, No added sounds, rales or wheezes ABDOMEN: Soft, nontender. No guarding or rebound. Colostomy in place. EXTREMITIES: No cyanosis, clubbing, edema +2 NEUROLOGIC: Generalized weakness. No focal deficits. Results/Medications Result Diagram: 01/22/1735 01/22/1735 Medications Current Medications Ondansetron HCl 4 mg 4 mg Q4H PRN IV NAUSEA AND/OR VOMITING Last administered on 01/25/17 10:33; Admin Dose 4 MG; Start 01/13/17 at 18:00 Ceftriaxone Sodium (Rocephin) 50 ml @ 100 mls/hr Q24H IVPB Last administered on 01/25/17 07:49; Admin Dose 100 MLS/HR; Start 01/14/17 at 08:00 Docusate Sodium (Colace Liquid Cup) 100 mg BID PO Last administered on 10:33; Admin Dose 100 MG; Start 01/15/17 at 12:00 Pantoprazole (Protonix Tab) 40 mg DAILY@06 PO Last administered on 01/25/17 05:36; Admin Dose 40 MG; Start 01/18/17 at 06:00 Al Hydrox/Mg Hydrox/Simethicone (Mag-Al Plus) 30 ml TID PRN PO GASTROINTESTINAL UPSET Last administered on 01/25/17 04:19; Admin Dose 30 ML; Start 01/18/17 at 16:00 Lorazepam (Ativan) 0.5 mg Q4 PRN PO ANXIETY; Start 01/19/17 at 23:30 Clonidine (Catapres) 0.1 mg Q4H PRN PO SBP >=170, or DBP >= 110 Last administered on 01/20/17 06:05; Admin Dose 0.1 MG; Start 01/19/17 at 23:30 Hydromorphone HCl (Dilaudid) 2 mg Q4H PRN IV PAIN Last administered on 07:49; Admin Dose 2 MG; Start 01/20/17 at 23:13 Assessment/Plan Chief Complaint/Hosp Course Assessment 1. Stage IV rectal CA 2. Status post bowel obstruction 3. Significant cachexia 4. E. coli UTI Plan 1. Continue to encourage out of bed 2. Appreciate hematology oncology and surgical recommendations 3. internal audit senior manager evaluation discharge planning process. DC home with home health. Discussed with surgery and hematology. Appreciate palliative care input. Problems: [facility] Jan 25, 2017 11:40
[2017-01-25 16:34] VITALS: BP 162/77; RESP 18
[2017-01-25 20:00] VITALS: BP 152/77; RESP 18
== END 2017-01-25 20:55 | disposition home health service (06) | DRG 389 ==
LOC: E/R 11:30 → PP2 14:51
PROVIDERS: ADMIT Internal Medicine; ATTEND Internal Medicine
DX: K56.609 Unspecified intestinal obstruction, unspecified as to partial versus complete obstruction (principal); N32.1 Vesicointestinal fistula; R64 Cachexia; C79.11 Secondary malignant neoplasm of bladder; C79.89 Secondary malignant neoplasm of other specified sites; E44.0 Moderate protein-calorie malnutrition; E87.1 Hypo-osmolality and hyponatremia; N39.0 Urinary tract infection, site not specified; C19 Malignant neoplasm of rectosigmoid junction; Z68.1 Body mass index [BMI] 19.9 or less, adult; D64.9 Anemia, unspecified; I10 Essential (primary) hypertension; B96.20 Unspecified Escherichia coli [E. coli] as the cause of diseases classified elsewhere; E83.42 Hypomagnesemia; N50.89 Other specified disorders of the male genital organs; Z93.3 Colostomy status; Z93.2 Ileostomy status
CPT/HCPCS: 36415; 36430; 74000; 74177; 74250; 80048; 80053; 81001; 83690; 83735; 85025; 85610; 85730; 86850; 86870; 86900; 86901; 86920; 87086; 93970; 96374; 96375; 96376; J1940; C9113; J0696; J1170; J2060; J2405; J3475; J3480; J7030; P9016; Q9967

== ENCOUNTER 2017-01-27 14:06 | Inpatient (IN) | payer MEDICARE, OTHER ==
[~2017-01-27] VITALS: Ht 182.9 cm; Wt 62.0 kg
[2017-01-27] MEDS ORDERED: ONDANSETRON 4 MG INJ IV STA (18:08)
[2017-01-27] MEDS ORDERED: HYDROmorphONE 1 MG/ML SYG IV STA ×3 (18:08→20:09)
[2017-01-27] MEDS ORDERED: SOD CHLORIDE 0.9% 1,000 ML IV STA (18:08)
--- NOTE | 2017-01-27 18:22 | ERD ---
ER Documentation Chief Complaint Chief Complaint abdominal pain was discharged friday, sent by dr.ramachandran [place] This is a 66-year-old male with a history of colorectal cancer with multiple high-grade small bowel obstructions. The patient was on chemotherapy with his last chemo was 3 weeks ago. His chemotherapy has been inconsistent. The patient had a recent admission for small bowel obstruction high-grade in the upper abdomen. The patient's stating that he was discharged from the hospital on Friday and feels like he should not have been. The patient says he is having some vomiting for the past 2 days is nonbilious nonbloody and having no output in his ileostomy. The is here and states that he needs to be kept comfortable and is been told that he needs to be on hospice at this point. She states the patient is in denial about his condition. He is denying any fevers cough shortness of breath dysuria ROS All systems reviewed and are negative except as per history of present illness. Medications Home Meds Discontinued Reported Medications Hydrocodone/Acetaminophen ([place] 10-325 Tablet) 1 Each Tablet, 1 EACH PO Q6H Y for PRN, TAB 09/11/16 Allergies Allergies: Coded Allergies: No Known Allergies (Verified Allergy, Unknown, 01/13/17) PMhx/Soc History of Surgery: Yes (2017 - colectomy) Anesthesia Reaction: No Hx Neurological Disorder: No Hx Respiratory Disorders: No Hx Cardiac Disorders: No Hx Psychiatric Problems: No Hx Miscellaneous Medical Probl: No ([place] COLON/RECTUM) Hx Alcohol Use: No Hx Substance Use: No Hx Tobacco Use: No Smoking Status: Never smoker FmHx Family History: No coronary disease Physical Exam Vitals Vital Signs Date Time Temp Pulse Resp B/P Pulse Ox O2 Delivery O2 Flow Rate FiO2 01/27/17 14:10 97.6 74 18 173/89 99 Physical Exam Const: [Well-developed, cachectic Head: Atraumatic, normocephalic Eyes: Normal Conjunctiva, PERRLA, EOMI, normal sclera, no nystagmus ENT: Normal External Ears, Nose and Mouth, moist mucus membranes. Neck: Full range of motion. No meningismus, no lymphadenopathy. Resp: Clear to auscultation bilaterally, no wheezing, rhonchi, rales Cardio: Regular rate and rhythm, no murmurs, S1 S2 present Abd: Soft, diffuse moderate tenderness non distended. Mild guarding no rebound, no pulsitile abdominal masses or bruits Skin: No petechiae or rashes, no ecchymosis , no maculopapular rash Back: No midline or flank tenderness Ext: No cyanosis, or edema, FROM x 4, normal inspection, neurovascularly intact x 4 Neur: Awake and alert, STR 5/5 x 4, sensation intact x 4, no focal findings, cerebellum intact Psych: Normal Mood and Affect Result Diagram: 01/27/17181701/27/171817 Results 24 hrs Laboratory Tests Test 01/27/17 18:18 White Blood Count 7.410^3/ul Red Blood Count 4.0910^6/ul Hemoglobin 10.4g/dl Hematocrit 33.1% Mean Corpuscular Volume 80.9fl Mean Corpuscular Hemoglobin 25.4pg Mean Corpuscular Hemoglobin Concent 31.4g/dl Red Cell Distribution Width 17.3% Platelet Count 72598^3/UL Mean Platelet Volume 9.2fl Neutrophils % 86.2% Lymphocytes % 8.1% Monocytes % 5.1% Eosinophils % 0.1% Basophils % 0.1% Nucleated Red Blood Cells % 0.0/100WBC Neutrophils # 6.410^3/ul Lymphocytes # 0.610^3/ul Monocytes # 0.410^3/ul Eosinophils # 0.010^3/ul Basophils # 0.010^3/ul Nucleated Red Blood Cells # 0.010^3/ul Sodium Level 135mmol/L Potassium Level 4.0mmol/L Chloride Level 96mmol/L Carbon Dioxide Level 31mmol/L Anion Gap 12 Blood Urea Nitrogen 15mg/dl Creatinine 0.70mg/dl Glucose Level 120mg/dl Calcium Level 8.5mg/dl Total Bilirubin 0.5mg/dl Direct Bilirubin 0.00mg/dl Indirect Bilirubin 0.5mg/dl Aspartate Amino Transf (AST/SGOT) 21IU/L Alanine Aminotransferase (ALT/SGPT) 24IU/L Alkaline Phosphatase 107IU/L Total Protein 6.1g/dl Albumin 3.0g/dl Globulin 3.10g/dl Albumin/Globulin Ratio 0.96 Lipase 43U/L Current Medications Medications (Trade) Dose Ordered Sig/Krystle Route PRN Reason Start Time Stop Time Status Last Admin Dose Admin Sodium Chloride (NS) 1,000 ml @ 1,000 mls/hr Q1H STAT IV 01/27/17 18:08 01/27/17 19:07 DC 01/27/17 18:47 Hydromorphone HCl (Dilaudid) 1 mg ONCE STAT IV 01/27/17 18:08 01/27/17 18:10 DC 01/27/17 18:38 Ondansetron HCl (Zofran Inj) 4 mg ONCE STAT IV 01/27/17 18:08 01/27/17 18:10 DC 01/27/17 18:38 Hydromorphone HCl (Dilaudid) 2 mg ONCE STAT IV 01/27/17 18:50 01/27/17 18:51 DC 01/27/17 18:57 IV Flush 10 ml 10 ml STK-MED ONCE .ROUTE 01/27/17 18:55 01/27/17 18:56 DC Sodium Chloride (NS) 100 ml @ ud STK-MED ONCE .ROUTE 01/27/17 18:55 01/27/17 18:56 DC Iohexol (Omnipaque 300mg/ ml) 150 ml STK-MED ONCE .ROUTE 01/27/17 18:55 01/27/17 18:56 DC Hydromorphone HCl (Dilaudid) 1 mg ONCE STAT IV 01/27/17 20:09 01/27/17 20:10 UNV Procedures/MDM AMENDMENT: 01/27/2017 7:34:10 PM Jos Asencio M.d These findings were discussed with Dr. Garcia in the ED at 1931 hours on 2016. PROCEDURE: CT abdomen and pelvis with contrast. CLINICAL INDICATION: Abdominal pain. Colon cancer and history of small bowel obstruction. TECHNIQUE: CT scan of the abdomen and pelvis with contrast was performed after the uneventful intravenous administration of 90 cc of Omnipaque-300. Coronal and sagittal reformatted images were obtained from the axial source images. The total exam CTDI equals 5.74 mGy and the total exam DLP equals 342.97 mGy-cm. DICOM images are available. One or more of the following dose reduction techniques were used: - Automated exposure control. - Adjustment of the mA and/or kV according to patient size. - Use of iterative reconstruction technique. COMPARISON: Plain film dated 01/22/[address] dated 01/13/2017. FINDINGS: Visualized lower thorax: There is nonspecific ground-glass opacity within the visualized posterior right lower lobe. There are small bilateral pleural effusions. There is a 4 mm pleural-based nodule in the lateral basal left lower lobe, unchanged. The visualized heart is unremarkable. Hepatobiliary system and spleen: The liver is normal in size and density with no focal hepatic lesion identified. There is no intra or extrahepatic biliary ductal dilatation. The gallbladder is unremarkable. The spleen is unremarkable. The pancreas is unremarkable. Adrenal glands and genitourinary system: The adrenal glands are unremarkable. There has been interval decrease in size of a peripheral enhancing lesion posterior to the upper pole of the left kidney, currently measuring 2.9 cm and previously measuring 5.4 cm. There is mild to moderate right hydronephrosis and hydroureter with no definite radiopaque obstructing stone. There are multiple simple left renal cyst. The prostate gland is poorly visualized. Gastrointestinal system: There is similar appearance of an infiltrative neoplasm arising from the rectum and infiltrating the posterior urinary bladder with associated rectovesical fistula. There is a left lower quadrant colostomy. There is neoplastic infiltration of a distal small bowel loop in the left pelvis with resultant dilatation of the small bowel loops proximal to this region measuring up to 5.8 cm in diameter and associated air fluid levels. There is no pneumatosis or portal venous gas. The appendix is not identified. Peritoneum, vascular system, lymphatics: There is no free intraperitoneal air. There is a small to moderate volume of ascites. No definite mesenteric or retroperitoneal adenopathy is identified. There are atherosclerotic changes of the aorta, which is nonaneurysmal. Musculoskeletal system and soft tissues: There is moderate multilevel degenerative enthesopathy. There are no concerning osseous lesions. There is anasarca. IMPRESSION: 1. High-grade distal small bowel obstruction with a transition point in the left pelvis secondary to infiltration of the small bowel loop by the rectal neoplasm. No pneumatosis, portal venous gas, or evidence of perforation. 2. 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 3. Trace bilateral pleural effusions, similar on the right and improved on the left. 4. Pleural-based 4 mm nodule in the lateral basal left lower lobe. Attention on follow-up is recommended. 5. Mild to moderate right hydroureteronephrosis, likely secondary to neoplastic infiltration of the distal ureter and/or ureteral vesicle junction, mildly worsened when compared the prior. 6. Small to moderate volume of ascites and anasarca. RPTAT: HLBP .Jos Asencio MD, Date Time Electronically viewed and signed by .Jos Asencio MD, on 01/27/2017 19:34 .P/ CC: CHEO GARCIA DO Departure Condition: Stable CHEO GARCIA DO Jan 27, 2017 18:22
[2017-01-27 18:25] LABS: BASOPHILS % 0.1 % (0.0-2.0); EOSINOPHILS % 0.1 % (0.0-7.0); HEMATOCRIT 33.1 % (42.0-52.0); HEMOGLOBIN 10.4 g/dl (14.0-18.0); LYMPHOCYTES # 0.6 10^3/ul (0.8-2.9); LYMPHOCYTES % 8.1 % (15.0-51.0); MEAN CORPUSCULAR HEMOGLOBIN 25.4 pg (29.0-33.0); MEAN CORPUSCULAR HGB CONC 31.4 g/dl (32.0-37.0); MEAN CORPUSCULAR VOLUME 80.9 fl (82.0-101.0); MEAN PLATELET VOLUME 9.2 fl (7.4-10.4); MONOCYTE # 0.4 10^3/ul (0.3-0.9); MONOCYTES % 5.1 % (0.0-11.0); NEUTROPHIL # 6.4 10^3/ul (1.6-7.5); NEUTROPHILS % 86.2 % (39.0-77.0); PLATELET COUNT 284 10^3/UL (140-415); RED BLOOD COUNT 4.09 10^6/ul (4.70-6.10); RED CELL DISTRIBUTION WIDTH 17.3 % (11.5-14.5); WHITE BLOOD COUNT 7.4 10^3/ul (4.8-10.8)
[2017-01-27 18:45] LABS: ALBUMIN/GLOBULIN RATIO 0.96; BILIRUBIN,INDIRECT 0.5 mg/dl (0-1.1); BILIRUBIN,TOTAL 0.5 mg/dl (0.2-1.3); CALCIUM 8.5 mg/dl (8.4-10.2); CREATININE 0.7 mg/dl (0.61-1.24); TOTAL PROTEIN 6.1 g/dl (6.1-8.1)
[2017-01-27] MEDS ORDERED: IOHEXOL 300MG/ML 150 ML BTL ONE (18:55)
[2017-01-27] MEDS ORDERED: SOD CHLORIDE 0.9% 100 ML ONE (18:55)
--- NOTE | 2017-01-27 19:33 | RADRPT ---
AMENDMENT: 01/27/2017 7:34:10 PM Jos Asencio M.d These findings were discussed with Dr. Garcia in the ED at 1931 hours on 01/27/2017. PROCEDURE: CT abdomen and pelvis with contrast. CLINICAL INDICATION: Abdominal pain. Colon cancer and history of small bowel obstruction. TECHNIQUE: CT scan of the abdomen and pelvis with contrast was performed after the uneventful intrav enous administration of 90 cc of Omnipaque-300. Coronal and sagittal reformatted images were obtaine d from the axial source images. The total exam CTDI equals 5.74 mGy and the total exam DLP equals 34 2.97 mGy-cm. DICOM images are available. One or more of the following dose reduction techniques were used: - Automated exposure control. - Adjustment of the mA and/or kV according to patient size. - Use of iterative reconstruction technique. COMPARISON: Plain film dated 01/22/[address] dated 01/13/2017. FINDINGS: Visualized lower thorax: There is nonspecific ground-glass opacity within the visualized posterior right lower lobe. There are small bilateral pleural effusions. There is a 4 mm pleural-based nodule in the lateral basal left lower lobe, unchanged. The visualized heart is unremarkable. Hepatobiliary system and spleen: The liver is normal in size and density with no focal hepatic lesi on identified. There is no intra or extrahepatic biliary ductal dilatation. The gallbladder is unrem arkable. The spleen is unremarkable. The pancreas is unremarkable. Adrenal glands and genitourinary system: The adrenal glands are unremarkable. There has been interv al decrease in size of a peripheral enhancing lesion posterior to the upper pole of the left kidney, currently measuring 2.9 cm and previously measuring 5.4 cm. There is mild to moderate right hydrone phrosis and hydroureter with no definite radiopaque obstructing stone. There are multiple simple lef t renal cyst. The prostate gland is poorly visualized. Gastrointestinal system: There is similar appearance of an infiltrative neoplasm arising from the r ectum and infiltrating the posterior urinary bladder with associated rectovesical fistula. There is a left lower quadrant colostomy. There is neoplastic infiltration of a distal small bowel loop in th e left pelvis with resultant dilatation of the small bowel loops proximal to this region measuring u p to 5.8 cm in diameter and associated air fluid levels. There is no pneumatosis or portal venous ga s. The appendix is not identified. Peritoneum, vascular system, lymphatics: There is no free intraperitoneal air. There is a small to moderate volume of ascites. No definite mesenteric or retroperitoneal adenopathy is identified. Ther e are atherosclerotic changes of the aorta, which is nonaneurysmal. Musculoskeletal system and soft tissues: There is moderate multilevel degenerative enthesopathy. Th ere are no concerning osseous lesions. There is anasarca. IMPRESSION: 1. High-grade distal small bowel obstruction with a transition point in the left pelvis secondary t o infiltration of the small bowel loop by the rectal neoplasm. No pneumatosis, portal venous gas, or evidence of perforation. 2. 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 3. Trace bilateral pleural effusions, similar on the right and improved on the left. 4. Pleural-based 4 mm nodule in the lateral basal left lower lobe. Attention on follow-up is recomm ended. 5. Mild to moderate right hydroureteronephrosis, likely secondary to neoplastic infiltration of the distal ureter and/or ureteral vesicle junction, mildly worsened when compared the prior. 6. Small to moderate volume of ascites and anasarca. RPTAT: HLBP .Jos Asencio MD, Date Time Electronically viewed and signed by .Jos Asencio MD, on 01/27/2017 19:34 .P/
[2017-01-27 20:07] VITALS: TEMP 97.9
[2017-01-27] MEDS ORDERED: HYDR-902 PO (20:35)
[2017-01-27] MEDS ORDERED: HYDROmorphONE 2 MG/ML SYG IV STA (21:32)
[2017-01-27] MEDS ORDERED: SOD CHLORIDE 0.9% 1,000 ML IV SCH ×2 (22:17→22:32)
[2017-01-27] MEDS ORDERED: ACETAMINOPHEN 325 MG TAB PO PRN ×2 (22:30→23:00)
[2017-01-27] MEDS ORDERED: ONDANSETRON 4 MG INJ IV PRN ×2 (22:30→23:00)
[2017-01-27 23:45] VITALS: BP 132/83; RESP 18
[2017-01-28 00:10] VITALS: Ht 182.9 cm; Wt 62.0 kg
[2017-01-28] MEDS: ONDANSETRON 4 MG INJ IV PRN (01:57)
[2017-01-28] MEDS: HYDROmorphONE 2 MG/ML SYG IV PRN ×6 (01:57→23:55)
[2017-01-28 02:38] VITALS: BP 138/82; RESP 18
[2017-01-28] MEDS: PANTOPRAZOLE (EC) 40 MG TAB PO SCH (05:04)
[2017-01-28 08:08] VITALS: BP 138/76; RESP 16
[2017-01-28] MEDS: DOCUSATE SODIUM 100 MG CAP PO SCH (10:07)
[2017-01-28] MEDS: AL HYDROX/MG HYDROX/SIMETH 30 ML CUP PO PRN (10:10)
[2017-01-28 14:52] VITALS: BP 160/78; RESP 16
--- NOTE | 2017-01-28 15:52 | PN ---
Date/Time of Note Date/Time of Note DATE: 01/28/17 TIME: 15:45 Assessment/Plan Lines/Catheters IV Catheter Type (from [facility]): Saline Lock Assessment/Plan Assessment/Plan [facility] Progress Note Date of Service: 01/28/2017 Location of Service: [facility] Second floor [facility] Today's Assessment & Plan: Readmitted with further issues with high-grade malignant SBO. I had an extensive discussion with the patient as well as several members of his family including his , daughter, niece and perhaps a [id number]. Reviewed the clinical findings in detail and the 2 viable options of surgical intervention versus hospice perhaps with a gastrostomy tube. I was very clear with the patient and family that neither of these 2 approaches will change patient's expected survival and the rather high risk of morbidity and mortality of operative intervention with questionable ultimate benefit. Answered all questions. Patient and family appeared to understand and would like some time to discuss the options. Currently, I have the patient on the operating room schedule to reserve the time in case he decides to pursue this more aggressively. If they decide to go with hospice, we will certainly change that plan. Also discussed with Dr. Leigh and Dr. Elias, both of whose excellent cares I appreciate significantly. With above assessment, I've recommended the following for today: 1. Continue current nonoperative management 2. Treat symptoms 3. Labs in a.m. 4. Appreciate Dr. Leigh's input 5. Continue aggressive bowel regimen with prn enema through ostomy 6. Patient and family to decide on decision regarding surgery versus hospice Thank you again for your great care of this very pleasant patient and wonderful family. If there are any questions, please feel free to call me at [phone]. Nature of presenting problem: High severity Please note that, given the multiple number of diagnoses or management options, the extensive amount and/or complexity of data needed to be reviewed, and I risk of complications and/or morbidity or mortality, this qualifies as high complexity type of decision-making. Disclaimers: 1. Inadvertent spelling and grammatical errors are likely due to electronic health record (EHR)/dictation software used and do not reflect on the quality of delivered patient care. 2. The electronic timestamp recorded on this note does not necessarily reflect the actual date and time of the visit or the service. 3. Portions of this note may have been created through electronic templates and computer algorithms that might bring in information either from the system or from other physicians and providers. Please note that such information may or may not contain errors, the occurrence of which are outside of my control. In general (but not always) this happens either in the beginning or at the end of the note. The portion of the note that I have created are generally done in 1 continuous block of text, flanked at the beginning and at the end by " ", and entered into one field in the EHR. 4. There may be other unanticipated errors in the note that are outside of my control. I can only attest to the portions of the note that I have created. Updated Clinical Summary: The patient is a very pleasant 66-year-old gentleman with comorbidities including hypertension, who was initially admitted to [facility] through ED on 2015 with signs and symptoms consistent with anemia that eventually was shown to be a large, nearly obstructing mass approximately 12 cm from the anal verge up to the area of the rectosigmoid junction on colonoscopy 06/07/2015. Plan at that time was neoadjuvant treatment with chemoradiation followed by restaging and surgical resection. Patient underwent radiation therapy (Dr. Aranda) that ended September 2015 (patient's recollection was November 2015). Discussions with multiple colleagues revealed evidence that the patient had been not following instructions and there were barriers to get the patient to surgical intervention. At least part of the barriers were due to patient factors alone. Patient reported having contacted my office approximately 5 times to try and make an appointment and was told that we "do not accept" his insurance. Careful review of office records showed no documentation of patient calling. Patient also believed that he had had [employer] as his insurance carrier, but his insurance carrier was [employer] (accepted by our program). Patient re-presented to [facility] through ED with constipation, vomiting, abdominal distension and dilated loops of small intestine on 04/01/16. Significant comorbidities included not insignificant malnutrition with BMI 15.8 and dehydration, albumin of 3.6 in the setting of inability to feed enterically. Small area of liver in segment 6 and two very small areas in segment 4a of questionable significance (too small to tell) benign path vs. metastatic disease. We attempted to treat the bowel obstruction with nonoperative management with the hope that the patient would be able to increase his oral intake and improve his nutritional status prior to potentially getting systemic chemotherapy in the neoadjuvant fashion before surgical intervention. Patient very clearly showed us that his bowels were not able to tolerate any meaningful amount of nutritional intake after a few days of this management and for this reason, and after a multidisciplinary discussion, we decided to change our treatment strategy and take the patient to the operating room. + BM 07/21/16. List of operative interventions on 04/12/16: 1. Laparoscopic exploration converted to open exploration 2. Partial colectomy with removal of upper part of rectum and sigmoid colon ( modifier 22) 3. Resection of the end of terminal ileum along with cecum with primary anastomosis 4. Performance of an colostomy using distal descending colon 5. Extensive lysis of adhesions (at least 60 minutes) 6. Intraoperative ultrasound of the liver 7. Abdominal lavage D/c home 04/23/16. Two visits to ED for constipation 06/07 and 06/11/16. Readmitted after a few ED visits in June and July 2016 though ED to [facility] on 07/19/16 with UTI and perhaps partial SBO. Treated non-operatively successfully with treatment of UTI and resolution of partial SBO; d/c home 07/22/16. Readmitted for similar complaints, but was managed nonoperatively. [place] [facility] [place] 2017. Comorbidities: 1. Rectal malignancy, s/p chemotherapy and radiation June to Nov 2015; obstruction end of terminal ileum as well as at the level of the rectosigmoid junction with aggressive locally advanced rectal cancer; S/p an otherwise uncomplicated but challenging resection of both involved portions of rectosigmoid as well as terminal ileum in the setting of aggressive rectal cancer with local invasion of the pelvis on 04/13/16. 2. Hypertension 3. Cachexia; BMI 17.3 (previously 15.08 Jul 2016); albumin of 2.5 (previously 3.06 Jul 2016) in the setting of inability to feed enterically 4. Colonoscopy June 2015 5. Anxiety 6. Multiple visits to ED and admissions to hospital through July 2016 Subjective: No major events or complaints since admission; still with abdominal discomfort and under control with medications; no n/v/d; no sob or cp; + bowel activity, + activity; no major reported issues with hiccups; has not really tolerated much oral intake since discharge; had some activity in the bag Objective: Vitals: See below Exam: GENERAL: On exam, the patient was standing up in his room and appeared to be comfortable and in no acute distress. ABDOMEN: Soft, nontender and nondistended. Ostomy was viable; no significant stool or air in the bag. No major edema of the ostomy noted. There are no peritoneal signs or guarding. SKIN: Skin appears to be pink and feels warm to touch. NEUROLOGIC: Patient is awake, alert, and follows commands appropriately. Exam/Review of Systems Vital Signs Vitals Vital Signs Date Time Temp Pulse Resp B/P Pulse Ox O2 Delivery O2 Flow Rate FiO2 01/28/17 14:52 98.3 69 16 160/78 96 01/27/17 23:00 Room Air Intake and Output 01/27/17 01/27/17 01/28/17 14:59 22:59 06:59 Intake Total 350 ml Output Total 4 ml Balance 346 ml Results Result Diagram: 01/27/17181701/27/171817 DIVINE BEY M.D. Jan 28, 2017 15:52
[2017-01-28 20:00] LABS: ADD UMIC YES; UR ASCORBIC ACID NEGATIVE (NEGATIVE); UR BACTERIA MANY /HPF (NONE SEEN); UR BILIRUBIN (Dip) NEGATIVE (NEGATIVE); UR BLOOD (Dip) 2+ mg/dL (NEGATIVE); UR CLARITY TURBID (CLEAR); UR COLOR RED (YELLOW); UR GLUCOSE (Dip) NEGATIVE (NEGATIVE); UR KETONES (Dip) TRACE mg/dL (NEGATIVE); UR LEUKOCYTE ESTERASE (Dip) 1+ Leu/ul (NEGATIVE); UR NITRITE (Dip) NEGATIVE (NEGATIVE); UR RBC > 182 /HPF (0-5); UR SPECIFIC GRAVITY (Dip) 1.036 (1.003-1.030); UR TOTAL PROTEIN (Dip) 2+ mg/dl (NEGATIVE); UR UROBILINOGEN (Dip) 1+ mg/dL (NEGATIVE)
--- NOTE | 2017-01-28 20:46 | HP ---
DATE OF ADMISSION: 01/27/2017 CHIEF COMPLAINT: Abdominal pain, nausea and vomiting. HISTORY OF PRESENT ILLNESS: The patient is a patient of Dr. Abdoul Urena, for whom I am cov ering. He is a 66-year-old male with a history of stage IV rectal cancer, was recently discharged f [facility] on 01/25/2017 after admission for a small-bowel obstruction. The p atient, at that time, was tolerating soft diet and pain was adequately controlled. The patient retu rned home, never did fill his outpatient pain medicines, he was having some abdominal discomfort and noticed his initial colostomy output had decreased. He denied any abdominal distention, but did leung ve some abdominal pain. Denied any fever, chills or night sweats. He had some dysuria and some mil d hematuria, and generalized fatigue. The patient also denied any chest pains, no shortness of [place] th, has had chronic edema of his legs. The patient presented to the emergency room. CAT scan showe d a persistent high grade small-bowel obstruction secondary to his metastatic tumor. The patient wa s admitted for further management. Patient is currently interested in considering further treatment options. PAST MEDICAL HISTORY: Stage IV rectal cancer, status post chemo and radiation, status post partial colectomy with a colostomy, history of GERD, history of hypertension. PAST SURGICAL HISTORY: Partial colectomy and colostomy. MEDICATIONS: The patient was on no meds at the time of admission. ALLERGIES: NO KNOWN DRUG ALLERGIES. SOCIAL HISTORY: The patient denies any tobacco or alcohol use. He is . FAMILY HISTORY: Notable for a father who had diabetes. REVIEW OF SYSTEMS: GENERAL: The patient denies any fever, chills or night sweats. He has had some fatigue and general ized weakness. HEENT: The patient denies any headache, congestion, rhinorrhea, sore throat, other HEENT complaints . RESPIRATORY: The patient denies any cough, wheeze, shortness of breath or other respiratory complai nts. CARDIOVASCULAR: The patient denies any chest pains, palpitations, dizziness or other cardiovascular symptoms. GASTROINTESTINAL: As noted in HPI. GENITOURINARY: The patient has had some dysuria and some mild hematuria. No other urinary symptoms . NEUROLOGIC: The patient has some generalized, especially lower extremity weakness. No focal weakne ss. PHYSICAL EXAMINATION: VITAL SIGNS: Temperature 98.3, blood pressure 138/76, pulse 69, pulse ox 96% on room air. GENERAL APPEARANCE: Patient is a cachectic male in no acute distress. He is slightly pale appearin g. HEENT: Normocephalic, atraumatic. Sclerae anicteric. Oropharynx slightly dry. NECK: Supple. No adenopathy. No bruits. LUNGS: Clear to auscultation. CARDIAC: Regular rate and rhythm. ABDOMEN: Bowel sounds are present. Abdomen is soft. There is mild diffuse tenderness. No guardin g. No rebound. Minimal colostomy output in colostomy bag. EXTREMITIES: There is bilateral pitting edema up to the thighs bilaterally. NEUROLOGICAL: The patient is awake and alert. There is some bilateral mild weakness, especially pr oximally in the lower extremities. Otherwise, no focal neurologic findings. DATA: White count 7.4, hemoglobin 10.4, platelets 284. Chemistry: Sodium is 135, potassium 4.0, c hloride 96, bicarbonate 31, BUN 15, creatinine 0.7, glucose 120, AST 21, ALT 24, albumin 3.0, lipase 43. Abdominal CT scan shows high-grade distal small-bowel obstruction with transition point in the left pelvis secondary to infiltration from rectal neoplasm, no evidence of perforation, rectovesica l fistula, bilateral pleural effusions, mild to moderate right hydroureteronephrosis secondary to ne oplastic infiltration of the distal ureter, small to moderate ascites and anasarca. IMPRESSION: 1. Small-bowel obstruction secondary to rectal neoplasm. 2. Stage IV rectal carcinoma. PLAN: Surgical consultation by Dr. Juárez. Patient to consider treatment options. We will conside r hospice, but want to explore other options before deciding definitively. We will monitor labs. F urther management based on patient's decision after consideration of treatment options. Dictated By: WHIT WEAVER/KEVIN Conf#: [id number] DID#: [id number]
[2017-01-28 20:57] VITALS: BP 147/73; RESP 18
[2017-01-29 03:33] VITALS: BP 157/72; RESP 18
[2017-01-29] MEDS: HYDROmorphONE 2 MG/ML SYG IV PRN ×5 (03:57→20:01)
[2017-01-29] MEDS: ONDANSETRON 4 MG INJ IV PRN (05:11)
[2017-01-29] MEDS: PANTOPRAZOLE (EC) 40 MG TAB PO SCH (05:11)
[2017-01-29 05:50] LABS: BASOPHILS % 0.4 % (0.0-2.0); EOSINOPHILS # 0.1 10^3/ul (0.0-0.5); HEMATOCRIT 26.6 % (42.0-52.0); HEMOGLOBIN 8.4 g/dl (14.0-18.0); LYMPHOCYTES # 0.6 10^3/ul (0.8-2.9); LYMPHOCYTES % 12.5 % (15.0-51.0); MEAN CORPUSCULAR HEMOGLOBIN 25.5 pg (29.0-33.0); MEAN CORPUSCULAR HGB CONC 31.6 g/dl (32.0-37.0); MEAN CORPUSCULAR VOLUME 80.9 fl (82.0-101.0); MEAN PLATELET VOLUME 9.2 fl (7.4-10.4); MONOCYTE # 0.5 10^3/ul (0.3-0.9); MONOCYTES % 10.5 % (0.0-11.0); NEUTROPHIL # 3.8 10^3/ul (1.6-7.5); PLATELET COUNT 238 10^3/UL (140-415); RED BLOOD COUNT 3.29 10^6/ul (4.70-6.10); RED CELL DISTRIBUTION WIDTH 17.4 % (11.5-14.5); WHITE BLOOD COUNT 5.1 10^3/ul (4.8-10.8)
[2017-01-29 06:48] LABS: ALBUMIN 2.5 g/dl (3.3-4.9); ALBUMIN/GLOBULIN RATIO 0.89; BILIRUBIN,INDIRECT 0.3 mg/dl (0-1.1); BILIRUBIN,TOTAL 0.3 mg/dl (0.2-1.3); CALCIUM 8.3 mg/dl (8.4-10.2); CREATININE 0.85 mg/dl (0.61-1.24); TOTAL PROTEIN 5.3 g/dl (6.1-8.1)
[2017-01-29 08:43] VITALS: BP 133/72; RESP 16
[2017-01-29] MEDS: DOCUSATE SODIUM 100 MG CAP PO SCH (08:51)
--- NOTE | 2017-01-29 10:54 | PN ---
Date/Time of Note Date/Time of Note DATE: 01/29/17 TIME: 10:48 Assessment/Plan VTE Prophylaxis VTE Prophylaxis Intervention: other Lines/Catheters IV Catheter Type (from Nrsg): Saline Lock Assessment/Plan Assessment/Plan A: SBO stage 4 rectal cancer anemia P: pt to discuss further rx options with Dr. Juárez IV hydration monitor labs Subjective 24 Hr Interval Summary Free Text/Dictation Pt doing okay. Pain reasonably controlled. Tolerating clear liquid diet. No abd distension. Some ostomy output. No cp, sob. Exam/Review of Systems Vital Signs Vitals Vital Signs Date Time Temp Pulse Resp B/P Pulse Ox O2 Delivery O2 Flow Rate FiO2 01/29/17 08:43 98.1 66 16 133/72 99 01/27/17 23:00 Room Air Intake and Output 01/28/17 01/28/17 01/29/17 14:59 22:59 06:59 Intake Total 550 ml Output Total 5 ml Balance 545 ml Exam gen- thin appearing in nad lung- CTA heart- RRR abd- +BS, soft, small amt output in ostomy bag ext- edema unchanged. Results Result Diagram: 01/29/17 0534 01/29/17 0534 Results 24 hrs Laboratory Tests Test 01/28/17 16:00 01/29/17 05:34 Urine Color RED Urine Clarity TURBID A Urine pH 7.0 Urine Specific Milo 1.036 H Urine Ketones TRACE A Urine Nitrite NEGATIVE Urine Bilirubin NEGATIVE Urine Urobilinogen 1+ H Urine Leukocyte Esterase 1+ H Urine Microscopic RBC > 182 H Urine Microscopic WBC 173 H Urine Bacteria MANY A Urine Hemoglobin 2+ H Urine Glucose NEGATIVE Urine Total Protein 2+ H White Blood Count 5.1 # Red Blood Count 3.29 L Hemoglobin 8.4 L Hematocrit 26.6 L Mean Corpuscular Volume 80.9 L Mean Corpuscular Hemoglobin 25.5 L Mean Corpuscular Hemoglobin Concent 31.6 L Red Cell Distribution Width 17.4 H Platelet Count 238 Mean Platelet Volume 9.2 Neutrophils % 75.0 Lymphocytes % 12.5 L Monocytes % 10.5 Eosinophils % 1.0 Basophils % 0.4 Nucleated Red Blood Cells % 0.0 Neutrophils # 3.8 Lymphocytes # 0.6 L Monocytes # 0.5 Eosinophils # 0.1 Basophils # 0.0 Nucleated Red Blood Cells # 0.0 Sodium Level 135 Potassium Level 5.0 Chloride Level 98 Carbon Dioxide Level 31 Anion Gap 11 Blood Urea Nitrogen 21 H Creatinine 0.85 Glucose Level 67 #L Calcium Level 8.3 L Total Bilirubin 0.3 Direct Bilirubin 0.00 Indirect Bilirubin 0.3 Aspartate Amino Transf (AST/SGOT) 21 Alanine Aminotransferase (ALT/SGPT) 28 Alkaline Phosphatase 85 Total Protein 5.3 L Albumin 2.5 L Globulin 2.80 Albumin/Globulin Ratio 0.89 Medications Medications Current Medications Hydromorphone HCl (Dilaudid) 2 mg Q4H PRN IV PAIN Last administered on 07:53; Admin Dose 2 MG; Start 01/28/17 at 01:30 Ondansetron HCl (Zofran Inj) 4 mg Q6H PRN IV NAUSEA AND/OR VOMITING Last administered on 01/29/17 05:11; Admin Dose 4 MG; Start 01/28/17 at 01:30 Docusate Sodium (Colace) 100 mg DAILY PO Last administered on 01/29/17 08:51 ; Admin Dose 100 MG; Start 01/28/17 at 09:00 Pantoprazole (Protonix Tab) 40 mg DAILY@06 PO Last administered on 01/29/17 05:11; Admin Dose 40 MG; Start 01/28/17 at 06:00 Al Hydrox/Mg Hydrox/Simethicone (Mag-Al Plus) 30 ml Q6H PRN PO GASTROINTESTINAL UPSET Last administered on 01/28/17 10:10; Admin Dose 30 ML; Start 01/28/17 at 05:30 WHIT TRUJILLO MD Jan 29, 2017 10:54
[2017-01-29] MEDS: DEXTROSE 5%-0.9% NACL 1,000 ML IV SCH (11:25)
[2017-01-29 14:30] VITALS: BP 157/77; RESP 16
[2017-01-29 19:40] VITALS: BP 152/81; RESP 18
--- NOTE | 2017-01-29 21:54 | PN ---
Date/Time of Note Date/Time of Note DATE: 01/29/17 TIME: 09:49 Assessment/Plan Lines/Catheters IV [facility]from [facility] Saline Lock Assessment/Plan Assessment/Plan [facility] Progress Note Date of Service: 01/29/2017 Location of Service: [facility] Second floor [facility] Today's Assessment & Plan: Overall stable. Patient does not want surgical intervention and I'm in agreement with this decision. Advised discussions with Dr. Leigh and GI/IR regarding possible palliative G-tube. Answered all questions. Patient (no family in the room) appeared to understand and agreed with plans. Also discussed with Dr. Leigh. With above assessment, I've recommended the following for today: 1. Continue current nonoperative management 2. Treat symptoms 3. Labs in a.m. 4. Appreciate Dr. Leigh's input 5. Continue aggressive bowel regimen with prn enema through ostomy 6. Discussions regarding possible G-tube Thank you again for your great care of this very pleasant patient and wonderful family. If there are any questions, please feel free to call me at [phone]. Nature of presenting problem: High severity Please note that, given the multiple number of diagnoses or management options, the extensive amount and/or complexity of data needed to be reviewed, and I risk of complications and/or morbidity or mortality, this qualifies as high complexity type of decision-making. Disclaimers: 1. Inadvertent spelling and grammatical errors are likely due to electronic health record (EHR)/dictation software used and do not reflect on the quality of delivered patient care. 2. The electronic timestamp recorded on this note does not necessarily reflect the actual date and time of the visit or the service. 3. Portions of this note may have been created through electronic templates and computer algorithms that might bring in information either from the system or from other physicians and providers. Please note that such information may or may not contain errors, the occurrence of which are outside of my control. In general (but not always) this happens either in the beginning or at the end of the note. The portion of the note that I have created are generally done in 1 continuous block of text, flanked at the beginning and at the end by " ", and entered into one field in the EHR. 4. There may be other unanticipated errors in the note that are outside of my control. I can only attest to the portions of the note that I have created. Updated Clinical Summary: The patient is a very pleasant 66-year-old gentleman with comorbidities including hypertension, who was initially admitted to [facility] through ED on 2015 with signs and symptoms consistent with anemia that eventually was shown to be a large, nearly obstructing mass approximately 12 cm from the anal verge up to the area of the rectosigmoid junction on colonoscopy 06/07/2015. Plan at that time was neoadjuvant treatment with chemoradiation followed by restaging and surgical resection. Patient underwent radiation therapy (Dr. Aranda) that ended September 2015 (patient's recollection was November 2015). Discussions with multiple colleagues revealed evidence that the patient had been not following instructions and there were barriers to get the patient to surgical intervention. At least part of the barriers were due to patient factors alone. Patient reported having contacted my office approximately 5 times to try and make an appointment and was told that we "do not accept" his insurance. Careful review of office records showed no documentation of patient calling. Patient also believed that he had had [employer] as his insurance carrier, but his insurance carrier was [employer] (accepted by our program). Patient re-presented to [facility] through ED with constipation, vomiting, abdominal distension and dilated loops of small intestine on 04/01/16. Significant comorbidities included not insignificant malnutrition with BMI 15.8 and dehydration, albumin of 3.6 in the setting of inability to feed enterically. Small area of liver in segment 6 and two very small areas in segment 4a of questionable significance (too small to tell) benign path vs. metastatic disease. We attempted to treat the bowel obstruction with nonoperative management with the hope that the patient would be able to increase his oral intake and improve his nutritional status prior to potentially getting systemic chemotherapy in the neoadjuvant fashion before surgical intervention. Patient very clearly showed us that his bowels were not able to tolerate any meaningful amount of nutritional intake after a few days of this management and for this reason, and after a multidisciplinary discussion, we decided to change our treatment strategy and take the patient to the operating room. + BM 07/21/16. List of operative interventions on 04/12/16: 1. Laparoscopic exploration converted to open exploration 2. Partial colectomy with removal of upper part of rectum and sigmoid colon ( modifier 22) 3. Resection of the end of terminal ileum along with cecum with primary anastomosis 4. Performance of an colostomy using distal descending colon 5. Extensive lysis of adhesions (at least 60 minutes) 6. Intraoperative ultrasound of the liver 7. Abdominal lavage D/c home 04/23/16. Two visits to ED for constipation 06/07 and 06/11/16. Readmitted after a few ED visits in June and July 2016 though ED to [facility] on 07/19/16 with UTI and perhaps partial SBO. Treated non-operatively successfully with treatment of UTI and resolution of partial SBO; d/c home 07/22/16. Readmitted for similar complaints, but was managed nonoperatively. Readmitted to [facility] through the emergency department late January 2017. Comorbidities: 1. Rectal malignancy, s/p chemotherapy and radiation June to Nov 2015; obstruction end of terminal ileum as well as at the level of the rectosigmoid junction with aggressive locally advanced rectal cancer; S/p an otherwise uncomplicated but challenging resection of both involved portions of rectosigmoid as well as terminal ileum in the setting of aggressive rectal cancer with local invasion of the pelvis on 04/13/16. 2. Hypertension 3. Cachexia; BMI 17.3 (previously 15.08 Jul 2016); albumin of 2.5 (previously 3.06 Jul 2016) in the setting of inability to feed enterically 4. Colonoscopy June 2015 5. Anxiety 6. Multiple visits to ED and admissions to hospital through July 2016 Subjective: No major events or complaints; still with abdominal discomfort and under control with medications; no n/v/d; no sob or cp; + bowel activity, + activity; no major reported issues with hiccups; has not really tolerated much oral intake since discharge; had some activity in the bag Objective: Vitals: See below Exam: GENERAL: On exam, the patient was laying in his room and appeared to be comfortable and in no acute distress. ABDOMEN: Soft, nontender and nondistended. Ostomy was viable; no significant stool or air in the bag. No major edema of the ostomy noted. There are no peritoneal signs or guarding. SKIN: Skin appears to be pink and feels warm to touch. NEUROLOGIC: Patient is awake, alert, and follows commands appropriately. Exam/Review of Systems Vital Signs Vitals Vital Signs Date Time Temp Pulse Resp B/P Pulse Ox O2 Delivery O2 Flow Rate FiO2 01/29/17 19:40 98.3 66 18 152/81 95 01/27/17 23:00 Room Air Intake and Output 01/28/17 01/28/17 01/29/17 15:00 23:00 07:00 Intake Total 550 ml Output Total 5 ml Balance 545 ml Results Result Diagram: 01/29/17 0534 01/29/17 0534 DIVINE BEY M.D. Jan 29, 2017 21:53
[2017-01-30] MEDS: HYDROmorphONE 2 MG/ML SYG IV PRN ×7 (00:01→23:43)
[2017-01-30] MEDS: DEXTROSE 5%-0.9% NACL 1,000 ML IV SCH ×2 (00:20→13:40)
[2017-01-30 02:15] VITALS: BP 136/64; RESP 18
[2017-01-30 05:31] LABS: ABNORMAL IP MESSAGE 1; BASOPHILS % 0.2 % (0.0-2.0); EOSINOPHILS % 0.2 % (0.0-7.0); HEMATOCRIT 27.9 % (42.0-52.0); HEMOGLOBIN 8.6 g/dl (14.0-18.0); LYMPHOCYTES # 0.5 10^3/ul (0.8-2.9); LYMPHOCYTES % 9.2 % (15.0-51.0); MEAN CORPUSCULAR HEMOGLOBIN 25.2 pg (29.0-33.0); MEAN CORPUSCULAR HGB CONC 30.8 g/dl (32.0-37.0); MEAN CORPUSCULAR VOLUME 81.8 fl (82.0-101.0); MEAN PLATELET VOLUME 8.9 fl (7.4-10.4); MONOCYTE # 0.3 10^3/ul (0.3-0.9); MONOCYTES % 5.3 % (0.0-11.0); NEUTROPHIL # 4.3 10^3/ul (1.6-7.5); NEUTROPHILS % 84.7 % (39.0-77.0); PLATELET COUNT 265 10^3/UL (140-415); POSITIVE DIFF @See below; RED BLOOD COUNT 3.41 10^6/ul (4.70-6.10); RED CELL DISTRIBUTION WIDTH 17.6 % (11.5-14.5); WHITE BLOOD COUNT 5.1 10^3/ul (4.8-10.8)
--- NOTE | 2017-01-30 05:59 | CONS ---
Date/Time of Note Date/Time of Note DATE: 01/30/17 TIME: 05:58 Consultation Date/Type/Reason Admit Date/Time Jan 27, 2017 at 22:18 Type of Consultation: Palliative care Hx of Present Illness Asked to speak to family members concerning ongoing level of care. This is a 66 -year-old gentleman known to me from last hospitalization who has a history of stage IV rectal cancer who is readmitted January 25 for small bowel obstruction. At the time that I had spoken with him and his it was clear to me that there was communication issues. He felt that his did not want to take care of him and he was adamant about going home and pursuing a high level of care in the future. However he refused G-tube placement and was clearly deteriorating having lost approximately 80 pounds within 1 year period of time. In speaking to his she was unaware the fact that he had refused G -tube placement. She made very clear to me she was unable to take care of him at home 24 hours 7 days a week as she had to work. Further she felt that he was withholding information from her clearly that was the case. She was also very aware the fact that he had a terminal diagnosis and that he refused to address it candidly. At that time patient was in denial. During his hospitalization I spoke to his and patient was been admitted from the emergency room, she was angry and tearful essentially that she could not take care of him at home as she had did not have the resources or the family support. I believe that during the conversation her anger stem from the fact that she felt she was in between a horrible situation of wanting to take care of him but having to be the sole breadwinner for the family and that she has no psychosocial support. She is not unhappy with the level of care that he is received or the very high level communication from both and . Any aggressive level of care was considered to be only palliation. Patient was given options yesterday 01/29/2017 to have palliative surgical intervention or palliative hospice care. I have not spoken his bowels since admission but I will speak to patient and spouse today concerning code change ongoing level of care and hospice. Past Surgical History Past Surgical Hx: no surgical history Social History Smoking Status: Never smoker Exam/Review of Systems Vital Signs Vitals Vital Signs Date Time Temp Pulse Resp B/P Pulse Ox O2 Delivery O2 Flow Rate FiO2 01/30/17 02:15 98.9 68 18 136/64 96 01/27/17 23:00 Room Air Results Result Diagram: 01/30/1717 01/29/17 0534 Results 24 hrs Laboratory Tests Test 01/30/17 05:17 White Blood Count 5.1 Red Blood Count 3.41 L Hemoglobin 8.6 L Hematocrit 27.9 L Mean Corpuscular Volume 81.8 L Mean Corpuscular Hemoglobin 25.2 L Mean Corpuscular Hemoglobin Concent 30.8 L Red Cell Distribution Width 17.6 H Platelet Count 265 Mean Platelet Volume 8.9 Neutrophils % 84.7 H Lymphocytes % 9.2 L Monocytes % 5.3 Eosinophils % 0.2 Basophils % 0.2 Nucleated Red Blood Cells % 0.0 Neutrophils # 4.3 Lymphocytes # 0.5 L Monocytes # 0.3 Eosinophils # 0.0 Basophils # 0.0 Nucleated Red Blood Cells # 0.0 Medications Medications Current Medications Hydromorphone HCl (Dilaudid) 2 mg Q4H PRN IV PAIN Last administered on 04:01; Admin Dose 2 MG; Start 01/28/17 at 01:30 Ondansetron HCl (Zofran Inj) 4 mg Q6H PRN IV NAUSEA AND/OR VOMITING Last administered on 01/29/17 05:11; Admin Dose 4 MG; Start 01/28/17 at 01:30 Docusate Sodium (Colace) 100 mg DAILY PO Last administered on 01/29/17 08:51 ; Admin Dose 100 MG; Start 01/28/17 at 09:00 Pantoprazole (Protonix Tab) 40 mg DAILY@06 PO Last administered on 01/29/17 05:11; Admin Dose 40 MG; Start 01/28/17 at 06:00 Al Hydrox/Mg Hydrox/ Simethicone 30 ml 30 ml Q6H PRN PO GASTROINTESTINAL UPSET Last administered on 01/28/17 10:10; Admin Dose 30 ML; Start 01/28/17 at 05: 30 Dextrose/Sodium Chloride (D5-NS) 1,000 ml @ 75 mls/hr [id number] IV Last administered on 01/29/17 11:25; Admin Dose 75 MLS/HR; Start 01/29/17 at 11:00 ENEDINA PFEIFFER Jan 30, 2017 05:59
[2017-01-30 06:09] LABS: CALCIUM 8.4 mg/dl (8.4-10.2); CREATININE 0.78 mg/dl (0.61-1.24); POTASSIUM 4.3 mmol/L (3.5-5.1)
[2017-01-30 06:14] LABS: TOTAL IRON BINDING CAPACITY 213 ug/dl (241-421)
[2017-01-30 06:15] LABS: IRON < 10 ug/dl (35-150)
[2017-01-30] MEDS: PANTOPRAZOLE (EC) 40 MG TAB PO SCH (06:44)
[2017-01-30 07:35] VITALS: BP 165/78; RESP 16
[2017-01-30] MEDS: DOCUSATE SODIUM 100 MG CAP PO SCH (08:02)
[2017-01-30 13:00] VITALS: BP 143/78; PULSE 60
--- NOTE | 2017-01-30 13:41 | PN ---
Date/Time of Note Date/Time of Note DATE: 01/30/17 TIME: 13:33 Assessment/Plan VTE Prophylaxis VTE Prophylaxis Intervention: ambulation Lines/Catheters IV Catheter Type (from Nrsg): Peripheral IV Assessment/Plan Assessment/Plan A: SBO stage 4 rectal Ca UTI fe def anemia P: ancef iv fe supplement gi eval for g tube cont current rx Subjective 24 Hr Interval Summary Free Text/Dictation Drs. Leigh and Marquita inputs appreciated. Pt doing okay. Has decided against surgery and wants to discuss palliative G-tube. Seen by Dr. Mason in past. Pt tolerating clear liquid diet. Some output from ostomy. No cp, sob. Exam/Review of Systems Vital Signs Vitals Vital Signs Date Time Temp Pulse Resp B/P Pulse Ox O2 Delivery O2 Flow Rate FiO2 01/30/17 07:35 99.1 69 16 165/78 99 01/27/17 23:00 Room Air Intake and Output 01/29/17 01/29/17 01/30/17 15:00 23:00 07:00 Intake Total 680 ml Output Total 3 ml Balance 677 ml Exam gen- thin male, nad. lungs- CTA heart- RRR abd- +BS, soft ext- edema unchanged Results Result Diagram: 01/30/1717 01/30/1717 Results 24 hrs Laboratory Tests Test 01/30/17 05:17 White Blood Count 5.1 Red Blood Count 3.41 L Hemoglobin 8.6 L Hematocrit 27.9 L Mean Corpuscular Volume 81.8 L Mean Corpuscular Hemoglobin 25.2 L Mean Corpuscular Hemoglobin Concent 30.8 L Red Cell Distribution Width 17.6 H Platelet Count 265 Mean Platelet Volume 8.9 Neutrophils % 84.7 H Lymphocytes % 9.2 L Monocytes % 5.3 Eosinophils % 0.2 Basophils % 0.2 Nucleated Red Blood Cells % 0.0 Neutrophils # 4.3 Lymphocytes # 0.5 L Monocytes # 0.3 Eosinophils # 0.0 Basophils # 0.0 Nucleated Red Blood Cells # 0.0 Sodium Level 133 L Potassium Level 4.3 Chloride Level 98 Carbon Dioxide Level 30 Anion Gap 9 Blood Urea Nitrogen 23 H Creatinine 0.78 Glucose Level 67 L Calcium Level 8.4 Iron Level < 10 L Total Iron Binding Capacity 213 L Percent Iron Saturation Ferritin 299.0 H Medications Medications Current Medications Hydromorphone HCl (Dilaudid) 2 mg Q4H PRN IV PAIN Last administered on 11:58; Admin Dose 2 MG; Start 01/28/17 at 01:30 Ondansetron HCl (Zofran Inj) 4 mg Q6H PRN IV NAUSEA AND/OR VOMITING Last administered on 01/29/17 05:11; Admin Dose 4 MG; Start 01/28/17 at 01:30 Docusate Sodium (Colace) 100 mg DAILY PO Last administered on 01/30/17 08:02 ; Admin Dose 100 MG; Start 01/28/17 at 09:00 Pantoprazole (Protonix Tab) 40 mg DAILY@06 PO Last administered on 01/30/17 06:44; Admin Dose 40 MG; Start 01/28/17 at 06:00 Al Hydrox/Mg Hydrox/ Simethicone 30 ml 30 ml Q6H PRN PO GASTROINTESTINAL UPSET Last administered on 01/28/17 10:10; Admin Dose 30 ML; Start 01/28/17 at 05: 30 Dextrose/Sodium Chloride (D5-NS) 1,000 ml @ 75 mls/hr [id number] IV Last administered on 01/29/17 11:25; Admin Dose 75 MLS/HR; Start 01/29/17 at 11:00 WHIT TRUJILLO MD Jan 30, 2017 13:41
[2017-01-30] MEDS: CEFAZOLIN 1 GM/50 ML (PMX) 50 ML IVPB SCH ×2 (14:41→21:15)
[2017-01-30 15:12] VITALS: BP 139/74; RESP 16
[2017-01-30] MEDS: AL HYDROX/MG HYDROX/SIMETH 30 ML CUP PO PRN (15:49)
[2017-01-30] MEDS ORDERED: FERROUS SULFATE (EC) 325 MG TAB PO ONE (19:30)
[2017-01-30 19:42] VITALS: BP 113/57; RESP 18
[2017-01-30] MEDS: FERROUS SULFATE (EC) 325 MG TAB PO SCH (20:40)
--- NOTE | 2017-01-30 23:07 | CONS ---
DATE OF ADMISSION: 01/27/2017 DATE OF CONSULTATION: 01/30/2017 GASTROENTEROLOGY CONSULTATION HISTORY OF PRESENT ILLNESS: The patient is a 66-year-old gentleman with stage IV colon cancer who I was asked to see consideration of a percutaneous endoscopic gastrostomy. The patient was diagnosed in June of 2015 with an obstructing rectal cancer. At that time, he also had an endoscopy showing esophagitis and gastritis. These were performed by Dr. Mason. Unfortunately, the team has not be en able to reach Dr. Mason at this point. Therefore, I was asked to see the patient. Nonetheless, he had surgery and a diverting colostomy was performed. Diffuse disease was noted. The patient te lls me that he has had 3 small bowel obstructions since surgery, one of which has required a nasogas tric tube being placed. The others resolved spontaneously. Nonetheless, the patient was provided t he option of hospice care or additional surgery. The patient has chosen hospice care. I was asked to see the patient for consideration of a PEG placement for suction. At this point, the patient is taking orally between 350 and 580 mL per day. In addition, he has some drainage from his colostomy. He notes some abdominal pain but denies any nausea, vomiting, dysphagia or odynophagia. He has de clined a nasogastric tube at this point. Apparently, after discussion of the options, he has decide d to go on hospice care rather than proceeding with further intervention. PAST MEDICAL HISTORY: Significant for hospitalization for colon cancer and surgery as above. ADULT ILLNESSES: He denies heart disease, hypertension, kidney disease, lung disease, tuberculosis, diabetes or hepatitis. CHILDHOOD: Denies rheumatic fever or scarlet fever. ALLERGIES: NONE KNOWN. INJURIES: None. MEDICATIONS: Include: 1. Iron. 2. Cefazolin. 3. Colace. 4. Pantoprazole. 5. Antacids. 6. Dilaudid. 7. Zofran. 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 He does not smoke. He does not drink alcohol. FAMILY HISTORY: Noncontributory. REVIEW OF SYSTEMS: Negative except as noted above. PHYSICAL EXAMINATION: GENERAL: Shows in general the patient to be a well-developed, cachectic, white male in no acute dis tress. VITAL SIGNS: Temperature 99.3, pulse 71, respirations 16, blood pressure 139/74. SKIN: Clear. HEENT: Negative. CHEST: Clear to percussion and auscultation. CARDIAC: No murmurs, rubs or gallops. ABDOMEN: Soft, nontender, no rebound, rigidity, colostomy left abdomen. Bowel sounds present. RECTAL: Not performed. LABORATORY DATA: Remarkable for white count 5.1, hemoglobin 8.6, hematocrit 27.9, platelets 265. C hemistries show AST 21, ALT 28, alk phos 85, albumin 2.5. IMPRESSION: The patient does not want any further aggressive intervention for his stage IV colon ca ncer. I was asked to consider a percutaneous endoscopic gastrostomy. I have discussed the risks an d possible benefits in depth with the patient and numerous family members including the patient's wi fe. At this point, I have discussed the risks of the procedure versus the benefits. It is unclear whether a nasogastric tube or a percutaneous gastrostomy will aid the patient other than to relieve obstructive symptoms. It is unclear whether his pain is related to his diffuse colon cancer or the obstruction. One option I discussed with the family was to place a nasogastric tube to see whether he felt better with that. If he felt better with nasogastric tube and suction, then in order to raegan id a lifelong nasogastric tube, a percutaneous endoscopic gastrostomy could be placed. A second alt ernative would be just to proceed with hospice care and analgesia. In that situation, he would be a ble to continue to eat small amounts that he does currently. I have discussed that should a nasogas tric tube or PEG tube be placed, he would then likely be on suction. If he goes on hospice care, on e alternative would be to wait for true obstructive symptoms such as vomiting. In that case, he cou ld have a nasogastric tube placed. If he had an expectation of a longer life expectancy, a PEG tube could then be placed to replace the nasogastric tube. At this point, the patient would like to dis cuss all of these options between themselves and Dr. Trujillo. I will sign off for now but will be happy to see the patient again at your request. Certainly, he is a very unfortunate gentleman and his prognosis is grim. Certainly, palliative care under the management of Dr. Leigh would be a r easonable approach. Thank you for having me see this patient. Dictated By: JUANJOSE ARTHUR/KEVIN Conf#: [id number] DID#: [id number] CC: WHIT TRUJILLO MD;*[facility]*
[2017-01-31 02:15] VITALS: BP 136/63; RESP 18
[2017-01-31] MEDS: DEXTROSE 5%-0.9% NACL 1,000 ML IV SCH ×2 (02:15→15:56)
[2017-01-31] MEDS: HYDROmorphONE 2 MG/ML SYG IV PRN ×6 (03:43→23:58)
[2017-01-31] MEDS: PANTOPRAZOLE (EC) 40 MG TAB PO SCH (05:41)
[2017-01-31] MEDS: CEFAZOLIN 1 GM/50 ML (PMX) 50 ML IVPB SCH ×2 (05:41→14:43)
[2017-01-31 06:07] LABS: ABNORMAL IP MESSAGE 1; BASOPHILS % 0.2 % (0.0-2.0); HEMATOCRIT 26.1 % (42.0-52.0); HEMOGLOBIN 8.2 g/dl (14.0-18.0); LYMPHOCYTES # 0.5 10^3/ul (0.8-2.9); LYMPHOCYTES % 11.6 % (15.0-51.0); MEAN CORPUSCULAR HEMOGLOBIN 25.3 pg (29.0-33.0); MEAN CORPUSCULAR HGB CONC 31.4 g/dl (32.0-37.0); MEAN CORPUSCULAR VOLUME 80.6 fl (82.0-101.0); MEAN PLATELET VOLUME 9.4 fl (7.4-10.4); MONOCYTE # 0.3 10^3/ul (0.3-0.9); MONOCYTES % 7.3 % (0.0-11.0); NEUTROPHIL # 3.6 10^3/ul (1.6-7.5); NEUTROPHILS % 80.5 % (39.0-77.0); PLATELET COUNT 263 10^3/UL (140-415); POSITIVE DIFF @See below; RED BLOOD COUNT 3.24 10^6/ul (4.70-6.10); RED CELL DISTRIBUTION WIDTH 17.7 % (11.5-14.5); WHITE BLOOD COUNT 4.5 10^3/ul (4.8-10.8)
[2017-01-31 06:37] LABS: CALCIUM 8.4 mg/dl (8.4-10.2); CREATININE 0.89 mg/dl (0.61-1.24)
--- NOTE | 2017-01-31 07:03 | CONS ---
Date/Time of Note Date/Time of Note DATE: 01/31/17 TIME: 07:00 Assessment/Plan Assessment/Plan Chief Complaint/Hosp Course Asked to speak to family members concerning ongoing level of care. This is a 66 -year-old gentleman known to me from last hospitalization who has a history of stage IV rectal cancer who is readmitted January 25 for small bowel obstruction. At the time that I had spoken with him and his it was clear to me that there was communication issues. He felt that his did not want to take care of him and he was adamant about going home and pursuing a high level of care in the future. However he refused G-tube placement and was clearly deteriorating having lost approximately 80 pounds within 1 year period of time. In speaking to his she was unaware the fact that he had refused G -tube placement. She made very clear to me she was unable to take care of him at home 24 hours 7 days a week as she had to work. Further she felt that he was withholding information from her clearly that was the case. She was also very aware the fact that he had a terminal diagnosis and that he refused to address it candidly. At that time patient was in denial. During his hospitalization I spoke to his and patient was been admitted from the emergency room, she was angry and tearful essentially that she could not take care of him at home as she had did not have the resources or the family support. I believe that during the conversation her anger stem from the fact that she felt she was in between a horrible situation of wanting to take care of him but having to be the sole breadwinner for the family and that she has no psychosocial support. She is not unhappy with the level of care that he is received or the very high level communication from both and . Any aggressive level of care was considered to be only palliation. Patient was given options yesterday 01/29/2017 to have palliative surgical intervention or palliative hospice care. I have not spoken his bowels since admission but I will speak to patient and spouse today concerning code change ongoing level of care and hospice. Problems: Additional Assessment/Plan Extensive conversation with patient. He is fully aware of his diagnosis and treatment options at this point. He wants to proceed with having a feeding tube placed, I have confirmed that with Dr. Kosari procedure pending scheduling. Patient is hopeful that he will continue to improve however he is receptive to hospice care when he returns home. He has told me that test case developer or social work service have discussed home health care I will follow- up in that which would be the best overall option for patient as he could go home be seen by hospice care. Conversation concerning CODE STATUS was done patient understands that there would be no advantage to him having cardiopulmonary resuscitation. I will change his CODE STATUS to DO NOT RESUSCITATE. Consultation Date/Type/Reason Admit Date/Time Jan 27, 2017 at 22:18 Initial Consult Date Type of Consultation: Palliative care Exam/Review of Systems Vital Signs Vitals Vital Signs Date Time Temp Pulse Resp B/P Pulse Ox O2 Delivery O2 Flow Rate FiO2 01/31/17 02:15 99.2 77 18 136/63 98 01/27/17 23:00 Room Air Intake and Output 01/30/17 01/30/17 01/31/17 15:00 23:00 07:00 Intake Total 630 ml 880 ml Output Total 2 ml Balance 628 ml 880 ml Results Result Diagram: 01/31/17 0431 01/31/17 0431 Results 24 hrs Laboratory Tests Test 01/30/17 19:53 01/30/17 20:38 01/30/17 21:15 01/30/17 21:36 Bedside Glucose 66 L 77 81 79 Test 01/31/17 04:31 White Blood Count 4.5 L Red Blood Count 3.24 L Hemoglobin 8.2 L Hematocrit 26.1 L Mean Corpuscular Volume 80.6 L Mean Corpuscular Hemoglobin 25.3 L Mean Corpuscular Hemoglobin Concent 31.4 L Red Cell Distribution Width 17.7 H Platelet Count 263 Mean Platelet Volume 9.4 Neutrophils % 80.5 H Lymphocytes % 11.6 L Monocytes % 7.3 Eosinophils % 0.0 Basophils % 0.2 Nucleated Red Blood Cells % 0.0 Neutrophils # 3.6 Lymphocytes # 0.5 L Monocytes # 0.3 Eosinophils # 0.0 Basophils # 0.0 Nucleated Red Blood Cells # 0.0 Sodium Level 131 L Potassium Level 5.0 Chloride Level 97 Carbon Dioxide Level 29 Anion Gap 10 Blood Urea Nitrogen 31 H Creatinine 0.89 Glucose Level 56 #L Calcium Level 8.4 Medications Medications Current Medications Hydromorphone HCl (Dilaudid) 2 mg Q4H PRN IV PAIN Last administered on 03:43; Admin Dose 2 MG; Start 01/28/17 at 01:30 Ondansetron HCl (Zofran Inj) 4 mg Q6H PRN IV NAUSEA AND/OR VOMITING Last administered on 01/29/17 05:11; Admin Dose 4 MG; Start 01/28/17 at 01:30 Docusate Sodium (Colace) 100 mg DAILY PO Last administered on 01/30/17 08:02 ; Admin Dose 100 MG; Start 01/28/17 at 09:00 Pantoprazole (Protonix Tab) 40 mg DAILY@06 PO Last administered on 01/31/17 05 :41; Admin Dose 40 MG; Start 01/28/17 at 06:00 Al Hydrox/Mg Hydrox/ Simethicone 30 ml 30 ml Q6H PRN PO GASTROINTESTINAL UPSET Last administered on 01/30/17 15:49; Admin Dose 30 ML; Start 01/28/17 at 05: 30 Dextrose/Sodium Chloride (D5-NS) 1,000 ml @ 75 mls/hr [id number] IV Last administered on 01/29/17 11:25; Admin Dose 75 MLS/HR; Start 01/29/17 at 11:00 Ferrous Sulfate 325 mg 325 mg BID PO Last administered on 01/30/17 20:40; Admin Dose 325 MG; Start 01/30/17 at 21:00 Cefazolin Sodium (Ancef 1 Gm/50 ml (Pmx)) 50 ml @ 100 mls/hr Q8 IVPB Last administered on 01/31/17 05:41; Admin Dose 100 MLS/HR; Start 01/30/17 at 14:00 ENEDINA PFEIFFER Jan 31, 2017 07:03
[2017-01-31 07:35] VITALS: BP 126/67; RESP 16
[2017-01-31] MEDS: DOCUSATE SODIUM 100 MG CAP PO SCH (08:21)
[2017-01-31] MEDS: FERROUS SULFATE (EC) 325 MG TAB PO SCH ×2 (08:21→20:32)
[2017-01-31 14:00] VITALS: BP 110/57; RESP 16
--- NOTE | 2017-01-31 16:07 | PN ---
Date/Time of Note Date/Time of Note DATE: 01/31/17 TIME: 15:59 Assessment/Plan Lines/Catheters IV [facility]ter [facility] (from [facility]): Saline Lock Assessment/Plan Assessment/Plan [facility] Progress Note Date of Service: 01/31/2017 Location of Service: [facility] Second floor [facility] Today's Assessment & Plan: Overall stable. No indication for acute surgical intervention. Appreciate all the physician's and provider's excellent care. Had multiple conversations over the phone and in person with various team members. Also discussed with patient and left a message for his . With above assessment, I've recommended the following for today: 1. Continue current nonoperative management 2. Treat symptoms 3. Labs in a.m. 4. Appreciate Dr. Leigh's and Dr. Ya's inputs 5. Continue aggressive bowel regimen with prn enema through ostomy 6. Dr. Mason to kindly see patient to have further discussions regarding possible G-tube Thank you again for your great care of this very pleasant patient and wonderful family. If there are any questions, please feel free to call me at [phone]. Nature of presenting problem: High severity Please note that, given the multiple number of diagnoses or management options, the extensive amount and/or complexity of data needed to be reviewed, and I risk of complications and/or morbidity or mortality, this qualifies as high complexity type of decision-making. Disclaimers: 1. Inadvertent spelling and grammatical errors are likely due to electronic health record (EHR)/dictation software used and do not reflect on the quality of delivered patient care. 2. The electronic timestamp recorded on this note does not necessarily reflect the actual date and time of the visit or the service. 3. Portions of this note may have been created through electronic templates and computer algorithms that might bring in information either from the system or from other physicians and providers. Please note that such information may or may not contain errors, the occurrence of which are outside of my control. In general (but not always) this happens either in the beginning or at the end of the note. The portion of the note that I have created are generally done in 1 continuous block of text, flanked at the beginning and at the end by " ", and entered into one field in the EHR. 4. There may be other unanticipated errors in the note that are outside of my control. I can only attest to the portions of the note that I have created. Updated Clinical Summary: The patient is a very pleasant 66-year-old gentleman with comorbidities including hypertension, who was initially admitted to [facility] through ED on 2015 with signs and symptoms consistent with anemia that eventually was shown to be a large, nearly obstructing mass approximately 12 cm from the anal verge up to the area of the rectosigmoid junction on colonoscopy 06/07/2015. Plan at that time was neoadjuvant treatment with chemoradiation followed by restaging and surgical resection. Patient underwent radiation therapy (Dr. Aranda) that ended September 2015 (patient's recollection was November 2015). Discussions with multiple colleagues revealed evidence that the patient had been not following instructions and there were barriers to get the patient to surgical intervention. At least part of the barriers were due to patient factors alone. Patient reported having contacted my office approximately 5 times to try and make an appointment and was told that we "do not accept" his insurance. Careful review of office records showed no documentation of patient calling. Patient also believed that he had had [employer] as his insurance carrier, but his insurance carrier was [employer] (accepted by our program). Patient re-presented to [facility] through ED with constipation, vomiting, abdominal distension and dilated loops of small intestine on 04/01/16. Significant comorbidities included not insignificant malnutrition with BMI 15.8 and dehydration, albumin of 3.6 in the setting of inability to feed enterically. Small area of liver in segment 6 and two very small areas in segment 4a of questionable significance (too small to tell) benign path vs. metastatic disease. We attempted to treat the bowel obstruction with nonoperative management with the hope that the patient would be able to increase his oral intake and improve his nutritional status prior to potentially getting systemic chemotherapy in the neoadjuvant fashion before surgical intervention. Patient very clearly showed us that his bowels were not able to tolerate any meaningful amount of nutritional intake after a few days of this management and for this reason, and after a multidisciplinary discussion, we decided to change our treatment strategy and take the patient to the operating room. + BM 07/21/16. List of operative interventions on 04/12/16: 1. Laparoscopic exploration converted to open exploration 2. Partial colectomy with removal of upper part of rectum and sigmoid colon ( modifier 22) 3. Resection of the end of terminal ileum along with cecum with primary anastomosis 4. Performance of an colostomy using distal descending colon 5. Extensive lysis of adhesions (at least 60 minutes) 6. Intraoperative ultrasound of the liver 7. Abdominal lavage D/c home 04/23/16. Two visits to ED for constipation 06/07 and 06/11/16. Readmitted after a few ED visits in June and July 2016 though ED to [facility] on 07/19/16 with UTI and perhaps partial SBO. Treated non-operatively successfully with treatment of UTI and resolution of partial SBO; d/c home 07/22/16. Readmitted for similar complaints, but was managed nonoperatively. Readmitted to [facility] through the emergency department late January 2017. Comorbidities: 1. Rectal malignancy, s/p chemotherapy and radiation June to Nov 2015; obstruction end of terminal ileum as well as at the level of the rectosigmoid junction with aggressive locally advanced rectal cancer; S/p an otherwise uncomplicated but challenging resection of both involved portions of rectosigmoid as well as terminal ileum in the setting of aggressive rectal cancer with local invasion of the pelvis on 04/13/16. 2. Hypertension 3. Cachexia; BMI 17.3 (previously 15.08 Jul 2016); albumin of 2.5 (previously 3.06 Jul 2016) in the setting of inability to feed enterically 4. Colonoscopy June 2015 5. Anxiety 6. Multiple visits to ED and admissions to hospital through July 2016 Subjective: No major events or complaints; still with abdominal discomfort and under control with medications; no n/v/d; no sob or cp; + bowel activity, + activity; no major reported issues with hiccups; has not really tolerated much oral intake since discharge; had some activity in the bag Objective: Vitals: See below Exam: GENERAL: On exam, the patient was standing in his room and appeared to be comfortable and in no acute distress. ABDOMEN: Soft, nontender and nondistended. Ostomy was viable; no significant stool or air in the bag. No major edema of the ostomy noted. There are no peritoneal signs or guarding. SKIN: Skin appears to be pink and feels warm to touch. NEUROLOGIC: Patient is awake, alert, and follows commands appropriately. Exam/Review of Systems Vital Signs Vitals Vital Signs Date Time Temp Pulse Resp B/P Pulse Ox O2 Delivery O2 Flow Rate FiO2 01/31/17 14:00 98.2 68 16 110/57 95 01/27/17 23:00 Room Air Intake and Output 01/30/17 01/30/17 01/31/17 14:59 22:59 06:59 Intake Total 630 ml 880 ml Output Total 2 ml Balance 628 ml 880 ml Results Result Diagram: 01/31/17 0431 01/31/17 0431 DIVINE BEY M.D. Jan 31, 2017 16:07
--- NOTE | 2017-01-31 17:16 | PN ---
Date/Time of Note Date/Time of Note DATE: 01/31/17 TIME: 17:06 Assessment/Plan VTE Prophylaxis VTE Prophylaxis Intervention: ambulation, other Lines/Catheters IV Catheter Type (from Nrsg): Saline Lock Assessment/Plan Assessment/Plan A: hypoglycemia stage 4 rectal cancer sbo - tolerating liquid diet coag neg staph in urine prob skin contaminant anemia P: PEG by Dr. Mason cont liquid diet, boost supplement cont analgesics d/c ancef Subjective 24 Hr Interval Summary Free Text/Dictation Reese Nieto and Bhakti input and care appreciated. After discussion with Dr. Juárez, plan is for pt to proceed with PEG. To be done by Dr. Mason, after Dr. Juárez discussed with Dr. Mason and Dr. Ya. Pt with episodes of hypoglycemia, given juice, supplemented with boost with improvement. Tolerating liquid diet. Some ostomy output. Ambulating some. No cp, sob. Exam/Review of Systems Vital Signs Vitals Vital Signs Date Time Temp Pulse Resp B/P Pulse Ox O2 Delivery O2 Flow Rate FiO2 01/31/17 14:00 98.2 68 16 110/57 95 01/27/17 23:00 Room Air Intake and Output 01/30/17 01/30/17 01/31/17 14:59 22:59 06:59 Intake Total 630 ml 880 ml Output Total 2 ml Balance 628 ml 880 ml Exam gen- nad, nontoxic lungs- CTA heart- RRR abd- +BS, soft ext- edema unchanged Results Result Diagram: 01/31/1743001/31/17 043 Results 24 hrs Laboratory Tests Test 01/30/17 19:53 01/30/17 20:38 01/30/17 21:15 01/30/17 21:36 Bedside Glucose 66 L 77 81 79 Test 01/31/17 04:31 01/31/17 06:54 01/31/17 07:24 White Blood Count 4.5 L Red Blood Count 3.24 L Hemoglobin 8.2 L Hematocrit 26.1 L Mean Corpuscular Volume 80.6 L Mean Corpuscular Hemoglobin 25.3 L Mean Corpuscular Hemoglobin Concent 31.4 L Red Cell Distribution Width 17.7 H Platelet Count 263 Mean Platelet Volume 9.4 Neutrophils % 80.5 H Lymphocytes % 11.6 L Monocytes % 7.3 Eosinophils % 0.0 Basophils % 0.2 Nucleated Red Blood Cells % 0.0 Neutrophils # 3.6 Lymphocytes # 0.5 L Monocytes # 0.3 Eosinophils # 0.0 Basophils # 0.0 Nucleated Red Blood Cells # 0.0 Sodium Level 131 L Potassium Level 5.0 Chloride Level 97 Carbon Dioxide Level 29 Anion Gap 10 Blood Urea Nitrogen 31 H Creatinine 0.89 Glucose Level 56 #L Calcium Level 8.4 Bedside Glucose 58 L 73 Medications Medications Current Medications Hydromorphone HCl (Dilaudid) 2 mg Q4H PRN IV PAIN Last administered on 15:53; Admin Dose 2 MG; Start 01/28/17 at 01:30 Ondansetron HCl (Zofran Inj) 4 mg Q6H PRN IV NAUSEA AND/OR VOMITING Last administered on 01/29/17 05:11; Admin Dose 4 MG; Start 01/28/17 at 01:30 Docusate Sodium (Colace) 100 mg DAILY PO Last administered on 01/31/17 08:21; Admin Dose 100 MG; Start 01/28/17 at 09:00 Pantoprazole (Protonix Tab) 40 mg DAILY@06 PO Last administered on 01/31/17 05 :41; Admin Dose 40 MG; Start 01/28/17 at 06:00 Al Hydrox/Mg Hydrox/ Simethicone 30 ml 30 ml Q6H PRN PO GASTROINTESTINAL UPSET Last administered on 01/30/17 15:49; Admin Dose 30 ML; Start 01/28/17 at 05: 30 Dextrose/Sodium Chloride (D5-NS) 1,000 ml @ 75 mls/hr [id number] IV Last administered on 01/29/17 11:25; Admin Dose 75 MLS/HR; Start 01/29/17 at 11:00 Ferrous Sulfate 325 mg 325 mg BID PO Last administered on 01/31/17 08:21; Admin Dose 325 MG; Start 01/30/17 at 21:00 Cefazolin Sodium (Ancef 1 Gm/50 ml (Pmx)) 50 ml @ 100 mls/hr Q8 IVPB Last administered on 01/31/17 14:43; Admin Dose 100 MLS/HR; Start 01/30/17 at 14:00 WHIT TRUJILLO MD Jan 31, 2017 17:16
--- NOTE | 2017-01-31 18:34 | CONS ---
Date/Time of Note Date/Time of Note DATE: 01/31/17 TIME: 18:26 Assessment/Plan Assessment/Plan Chief Complaint/Hosp Course Impression: Adult failure to thrive/malnutrition Recurrent malignant small bowel obstruction Stage IV colon cancer History of GERD/gastritis Plan: Proceed with EGD plus PEG for comfort and decompression Procedure was explained in detail to the patient and his family. Agreeable to proceed Problems: Consultation Date/Type/Reason Admit Date/Time Jan 27, 2017 at 22:18 Date of Consultation: Jan 31, 2017 Type of Consultation: GI Reason for Consultation SBO Hx of Present Illness 66-year-old male with stage IV colon cancer. The patient has undergone a diverting colostomy which time extensive intra-abdominal disease was noted. The patient has experienced recurrent small bowel obstruction. At the present time he refuses further surgery or chemotherapy. The patient wishes to proceed with hospice care. The gastrostomy tube has been requested for assistance and decompressing and improving quality of life. The patient understands that this intervention will not prolong life. The procedure was explained in detail including risks, benefits and alternatives. The patient is agreeable to proceed. . Constitutional: other (Cachectic), poor po Eyes: no complaints ENT: no complaints Respiratory: no complaints Cardiovascular: no complaints Gastrointestinal: other (See HPI) Genitourinary: no complaints Musculoskeletal: no complaints Skin: no complaints Neurologic: no complaints Endocrine: no complaints Lymphatic: no complaints Psychological: nl mood/affect, no complaints Immunologic: no complaints Past Medical History Stage IV colon cancer GERD/gastritis Past Surgical History Diverting colostomy Family History Significant Family History: no pertinent family hx Social History Alcohol Use: none Smoking Status: Never smoker Drug Use: none Exam/Review of Systems Vital Signs Vitals Vital Signs Date Time Temp Pulse Resp B/P Pulse Ox O2 Delivery O2 Flow Rate FiO2 01/31/17 14:00 98.2 68 16 110/57 95 01/27/17 23:00 Room Air Intake and Output 01/30/17 01/30/17 01/31/17 15:00 23:00 07:00 Intake Total 630 ml 880 ml Output Total 2 ml Balance 628 ml 880 ml Exam PHYSICAL EXAMINATION: GENERAL: Well developed, severely under nourished, alert & oriented x 3, in no acute distress SKIN: No lesions, no stigmata chronic liver disease, no evidence of bleeding diathesis LYMPHATIC: No palpable lymphadenopathy. HEAD: Normocephalic, atraumatic, no tenderness. EYES: Pupils equal reactive to light and accommodation, full extraocular movements, sclera clear, non-icteric, no discharge. EARS/NOSE AND THROAT: Ears normal, nose normal, oropharynx normal, oral membranes well hydrated without lesions. NECK: Supple, no masses, thyroid normal, JVP within normal limits, carotids normal without bruits. CHEST: Inspection within normal limits. CARDIOVASCULAR: Heart: Regular rate and rhythm, no murmurs, gallops or rubs. Peripheral pulses present within normal limits, no cyanosis, clubbing or edemas. No pulsatile abdominal mass RESPIRATORY: Lungs clear to auscultation and percussion, no wheezing, no rubs GASTROINTESTINAL AND LIVER: Abdomen: Soft, mild diffuse tenderness, non- distended, no hernias, no masses, no organomegaly, no ascites, no guarding, no rebound tenderness, normoactive bowel sounds. Rectal: Deferred. GENITOURINARY: [Male genitalia within normal limits.] EXTREMITIES: No cyanosis, clubbing or edema. Results Result Diagram: 01/31/17 0431 01/31/17 0431 Results 24 hrs Laboratory Tests Test 01/30/17 19:53 01/30/17 20:38 01/30/17 21:15 01/30/17 21:36 Bedside Glucose 66 L 77 81 79 Test 01/31/17 04:31 01/31/17 06:54 01/31/17 07:24 White Blood Count 4.5 L Red Blood Count 3.24 L Hemoglobin 8.2 L Hematocrit 26.1 L Mean Corpuscular Volume 80.6 L Mean Corpuscular Hemoglobin 25.3 L Mean Corpuscular Hemoglobin Concent 31.4 L Red Cell Distribution Width 17.7 H Platelet Count 263 Mean Platelet Volume 9.4 Neutrophils % 80.5 H Lymphocytes % 11.6 L Monocytes % 7.3 Eosinophils % 0.0 Basophils % 0.2 Nucleated Red Blood Cells % 0.0 Neutrophils # 3.6 Lymphocytes # 0.5 L Monocytes # 0.3 Eosinophils # 0.0 Basophils # 0.0 Nucleated Red Blood Cells # 0.0 Sodium Level 131 L Potassium Level 5.0 Chloride Level 97 Carbon Dioxide Level 29 Anion Gap 10 Blood Urea Nitrogen 31 H Creatinine 0.89 Glucose Level 56 #L Calcium Level 8.4 Bedside Glucose 58 L 73 Medications Medications Current Medications Hydromorphone HCl (Dilaudid) 2 mg Q4H PRN IV PAIN Last administered on 15:53; Admin Dose 2 MG; Start 01/28/17 at 01:30 Ondansetron HCl (Zofran Inj) 4 mg Q6H PRN IV NAUSEA AND/OR VOMITING Last administered on 01/29/17 05:11; Admin Dose 4 MG; Start 01/28/17 at 01:30 Docusate Sodium (Colace) 100 mg DAILY PO Last administered on 01/31/17 08:21; Admin Dose 100 MG; Start 01/28/17 at 09:00 Pantoprazole (Protonix Tab) 40 mg DAILY@06 PO Last administered on 01/31/17 05 :41; Admin Dose 40 MG; Start 01/28/17 at 06:00 Al Hydrox/Mg Hydrox/ Simethicone 30 ml 30 ml Q6H PRN PO GASTROINTESTINAL UPSET Last administered on 01/30/17 15:49; Admin Dose 30 ML; Start 01/28/17 at 05: 30 Dextrose/Sodium Chloride (D5-NS) 1,000 ml @ 75 mls/hr [id number] IV Last administered on 01/29/17 11:25; Admin Dose 75 MLS/HR; Start 01/29/17 at 11:00 Ferrous Sulfate (Ferrous Sulfate (Ec)) 325 mg BID PO Last administered on 08:21; Admin Dose 325 MG; Start 01/30/17 at 21:00 Copies To: CC: SHANNAN LARRY MD, MORDO MD Jan 31, 2017 18:34
[2017-01-31] MEDS ORDERED: CEFAZOLIN 1 GM/50 ML (PMX) 50 ML IVPB ONE (19:00)
[2017-01-31 20:41] VITALS: BP 141/66; RESP 18
[2017-02-01] VITALS (11 sets, daily range): BP systolic 101–155; BP diastolic 57–77; PULSE 44–57; RESP 11–29
[2017-02-01] MEDS: HYDROmorphONE 2 MG/ML SYG IV PRN ×4 (04:08→23:52)
[2017-02-01] MEDS: DEXTROSE 5%-0.9% NACL 1,000 ML IV SCH ×3 (05:02→23:52)
[2017-02-01] MEDS: PANTOPRAZOLE (EC) 40 MG TAB PO SCH (05:04)
[2017-02-01 06:20] LABS: ABNORMAL IP MESSAGE 1; HEMATOCRIT 24.9 % (42.0-52.0); HEMOGLOBIN 8.1 g/dl (14.0-18.0); LYMPHOCYTES # 0.3 10^3/ul (0.8-2.9); LYMPHOCYTES % 5.5 % (15.0-51.0); MEAN CORPUSCULAR HEMOGLOBIN 25.5 pg (29.0-33.0); MEAN CORPUSCULAR HGB CONC 32.5 g/dl (32.0-37.0); MEAN CORPUSCULAR VOLUME 78.3 fl (82.0-101.0); MONOCYTE # 0.3 10^3/ul (0.3-0.9); MONOCYTES % 5.5 % (0.0-11.0); NEUTROPHIL # 5.4 10^3/ul (1.6-7.5); NEUTROPHILS % 88.3 % (39.0-77.0); PLATELET COUNT 243 10^3/UL (140-415); POSITIVE DIFF @See below; RED BLOOD COUNT 3.18 10^6/ul (4.70-6.10); RED CELL DISTRIBUTION WIDTH 17.7 % (11.5-14.5); WHITE BLOOD COUNT 6.1 10^3/ul (4.8-10.8)
[2017-02-01 06:51] LABS: CALCIUM 7.8 mg/dl (8.4-10.2); CREATININE 0.9 mg/dl (0.61-1.24); POTASSIUM 4.9 mmol/L (3.5-5.1)
[2017-02-01] MEDS: FERROUS SULFATE (EC) 325 MG TAB PO SCH ×2 (08:30→20:39)
[2017-02-01] MEDS: DOCUSATE SODIUM 100 MG CAP PO SCH (08:30)
--- NOTE | 2017-02-01 11:18 | PN ---
Date/Time of Note Date/Time of Note DATE: 02/01/17 TIME: 11:09 Assessment/Plan VTE Prophylaxis VTE Prophylaxis Intervention: other Lines/Catheters IV Catheter Type (from Nrsg): Saline Lock Assessment/Plan Assessment/Plan A: stage 4 rectal Ca sbo- tolerating diet anemia P: gastrostomy tube placement in progress cont current rx palliative care Subjective 24 Hr Interval Summary Free Text/Dictation Dr. Mason consult appreciated. Pt scheduled for gastrostomy tube, now in GI lab for procedure. Exam/Review of Systems Vital Signs Vitals Vital Signs Date Time Temp Pulse Resp B/P Pulse Ox O2 Delivery O2 Flow Rate FiO2 02/01/17 08:00 97.7 53 17 125/62 94 Intake and Output 01/31/17 01/31/17 02/01/17 15:00 23:00 07:00 Intake Total 870 ml 800 ml Balance 870 ml 800 ml Results Result Diagram: 02/01/17 0458 02/01/17 0459 Results 24 hrs Laboratory Tests Test 02/01/17 04:14 02/01/17 04:58 02/01/17 04:59 Bedside Glucose 72 White Blood Count 6.1 # Red Blood Count 3.18 L Hemoglobin 8.1 L Hematocrit 24.9 L Mean Corpuscular Volume 78.3 L Mean Corpuscular Hemoglobin 25.5 L Mean Corpuscular Hemoglobin Concent 32.5 Red Cell Distribution Width 17.7 H Platelet Count 243 Mean Platelet Volume 9.0 Neutrophils % 88.3 H Lymphocytes % 5.5 L Monocytes % 5.5 Eosinophils % 0.0 Basophils % 0.0 Nucleated Red Blood Cells % 0.0 Neutrophils # 5.4 Lymphocytes # 0.3 L Monocytes # 0.3 Eosinophils # 0.0 Basophils # 0.0 Nucleated Red Blood Cells # 0.0 Sodium Level 130 L Potassium Level 4.9 Chloride Level 97 Carbon Dioxide Level 26 Anion Gap 12 Blood Urea Nitrogen 42 #H Creatinine 0.90 Glucose Level 68 #L Calcium Level 7.8 L Medications Medications Current Medications Hydromorphone HCl (Dilaudid) 2 mg Q4H PRN IV PAIN Last administered on t 04:08; Admin Dose 2 MG; Start 01/28/17 at 01:30 Ondansetron HCl (Zofran Inj) 4 mg Q6H PRN IV NAUSEA AND/OR VOMITING Last administered on 01/29/17 05:11; Admin Dose 4 MG; Start 01/28/17 at 01:30 Docusate Sodium (Colace) 100 mg DAILY PO Last administered on 01/31/17 08:21; Admin Dose 100 MG; Start 01/28/17 at 09:00 Pantoprazole (Protonix Tab) 40 mg DAILY@06 PO Last administered on 01/31/17 05 :41; Admin Dose 40 MG; Start 01/28/17 at 06:00 Al Hydrox/Mg Hydrox/ Simethicone 30 ml 30 ml Q6H PRN PO GASTROINTESTINAL UPSET Last administered on 01/30/17 15:49; Admin Dose 30 ML; Start 01/28/17 at 05: 30 Dextrose/Sodium Chloride (D5-NS) 1,000 ml @ 75 mls/hr [id number] IV Last administered on 02/01/17 05:02; Admin Dose 75 MLS/HR; Start 01/29/17 at 11:00 Ferrous Sulfate (Ferrous Sulfate (Ec)) 325 mg BID PO Last administered on 20:32; Admin Dose 325 MG; Start 01/30/17 at 21:00 WHIT TRUJILLO MD Feb 01, 2017 11:18
[2017-02-01] MEDS ORDERED: LIDOCAINE 2% (SDV) 5 ML INJ ONE (11:22)
[2017-02-01] MEDS ORDERED: PROPOFOL 20 ML ONE (11:22)
--- NOTE | 2017-02-01 11:25 | HPN ---
Date/Time of Note Date/Time of Note DATE: 02/01/17 TIME: 11:25 Interval H&P Admission Note Pt. seen H&P reviewed: No system changes SHANNAN LARRY MD Feb 01, 2017 11:25
--- NOTE | 2017-02-01 11:51 | OPPN ---
Date/Time of Note Date/Time of Note DATE: 02/01/17 TIME: 11:47 Proc Note GI Procedure Date 02/01/17 Indication: other (Small bowel obstruction and if both decompression) Pre-procedure Diagnosis Malignant small bowel obstruction in need of decompression Post-procedure Diagnosis Impression: Moderate distal esophagitis Uneventful PEG Placement of [place] 20 GT Otherwise normal EGD Plan: PPI therapy GT for decompression as needed Restart diet Procedure Performed: Other (EGD with PEG) Surgeon SHANNAN LARRY MD See signature line Micromatic Hone Operator none Anesthesia Type: MAC Anesthesiologist: DARIUS MCINTYRE Tourniquet Time none EBL none Transfusion required none Biopsy 1: None Grafts/Implants [place] 20 gastrostomy tube Tubes/Drains none Complication(s) none Disposition: PACU Procedure Description After informed consent, with the patient/relatives understanding the procedure, its indications, potential risks and complications, including but not limited to : Allergic reaction, bleeding, perforation or infection, and all after all pertinent questions were answered to the patient's satisfaction, patient/ relative signed witnessed informed consent. Following this, premedication was administered slowly IV push under care of cardiovascular respiratory monitoring with pulse oximetry, and automatic blood pressure, and personnel monitor. Once to sedative effect was achieved the patient was placed in the left lateral decubitus, the panendoscope was introduced and advanced under visual control. Careful examination of the upper gastrointestinal tract, both on insertion as well as withdrawal of the instrument disclosed following findings: ESOPHAGUS: The mucosa of the entire esophagus was carefully examined and showed the following findings: There is moderate erythema and edema in the close of the distal esophagus. Otherwise the mucosa appears within normal limits. There is no evidence of varices, neoplasm or stricture. No hiatal hernia identified. STOMACH: Upon entrance to the stomach air was insufflated, the gastric lewis distended normally. The mucosa of the fundus, body and antrum of the stomach was carefully examined both head-on and on retroflexion, and showed the following findings: The mucosa appears within normal limits with no abnormalities. There is no evidence of gastritis, ulcers or neoplasm. PYLORUS: The pylorus was carefully examined and showed the following findings: The pylorus appears patent and within normal limits, with no evidence of gastric outlet obstruction. DUODENUM: The duodenal mucosa was carefully examined in the duodenal bulb as well as the second portion of the duodenum and showed the following findings: The mucosa appears unremarkable with no evidence of duodenitis, ulcer or neoplasm. The instrument was then brought back to the stomach and the anterior wall mid- body was identified by transillumination and "finger indentation", this area was then marked in the anterior wall of the abdomen, it was cleansed with Betadine and infiltrated with Xylocaine 1%. Following this a trocar needle was introduced into the gastric lumen under visual control with the endoscope, once in the gastric lumen a guide wire was advanced and secured with a polypectomy snare, at this point the endoscope was withdrawn bringing the guidewire out through the patient's mouth. Following this a [place] #20 gastrostomy tube was introduced over the guidewire, with the Sacshamar-Vinshanel technique without difficulty , a small incision was performed in the skin to allow easy passage of the G-tube , once the position of the gastrostomy was confirmed, the external stopper and connectors were installed, and a clean dressing applied. The patient tolerated the procedure well and was transferred out of the endoscopy suite awake, and in good condition to continue recovery under observation, feedings will start in the next 12-24 hours and the discharge in the care will be instituted. Copies To: CC: SHANNAN LARRY MD, MORDO MD Feb 01, 2017 11:51
[2017-02-01] MEDS ORDERED: OXYCODONE/ACETAMINOPHEN (5/325) TAB PO PRN (12:00)
[2017-02-01] MEDS ORDERED: morphine (1 MG/ML) 10ML SYRINGE IV PRN ×2 (12:00)
[2017-02-01] MEDS ORDERED: hydrALAzine 20 MG INJ IV PRN (12:00)
[2017-02-01] MEDS ORDERED: EPHEDrine SULFATE 50 MG/5 ML SYG IV PRN (12:00)
[2017-02-01] MEDS ORDERED: FENTAnyl 50 MCG/ML VIAL IV PRN ×2 (12:00)
[2017-02-01] MEDS ORDERED: DIPHENHYDRAMINE 50 MG INJ IV PRN (12:00)
[2017-02-01] MEDS ORDERED: LABETALOL HCL 20MG INJ IV PRN (12:00)
[2017-02-01] MEDS ORDERED: ONDANSETRON 4 MG INJ IV PRN (12:00)
[2017-02-01] MEDS: ONDANSETRON 4 MG INJ IV PRN (14:08)
[2017-02-01] MEDS ORDERED: HYDROmorphONE 1 MG/ML SYG IV STA (15:30)
[2017-02-02 02:00] VITALS: BP 149/71; RESP 18
[2017-02-02] MEDS: HYDROmorphONE 2 MG/ML SYG IV PRN ×5 (03:50→22:57)
[2017-02-02] MEDS: PANTOPRAZOLE (EC) 40 MG TAB PO SCH (06:01)
[2017-02-02 07:44] VITALS: BP 146/71; RESP 18
[2017-02-02] MEDS: DOCUSATE SODIUM 100 MG CAP PO SCH (07:49)
[2017-02-02] MEDS: FERROUS SULFATE (EC) 325 MG TAB PO SCH ×2 (07:49→21:00)
--- NOTE | 2017-02-02 11:20 | PN ---
Date/Time of Note Date/Time of Note DATE: 02/02/17 TIME: 11:14 Assessment/Plan VTE Prophylaxis VTE Prophylaxis Intervention: other Lines/Catheters IV Catheter Type (from Nrsg): Peripheral IV Assessment/Plan Assessment/Plan A: stage 4 rectal Ca sbo- s/p PEG for decompression anemia P: cont supportive care will arrange home hospice cont liquid diet with boost supplement Subjective 24 Hr Interval Summary Free Text/Dictation Pt had PEG placed yesterday. Abd pain improved with analgesics. Tolerating liquid diet supplemented with boost. Some ostomy output. No cp, sob. Exam/Review of Systems Vital Signs Vitals Vital Signs Date Time Temp Pulse Resp B/P Pulse Ox O2 Delivery O2 Flow Rate FiO2 02/02/17 07:44 97.5 62 18 146/71 97 02/01/17 20:00 Room Air 02/01/17 12:07 2.0 Intake and Output 02/01/17 02/01/17 02/02/17 15:00 23:00 07:00 Intake Total 450 ml 1265 ml Output Total 200 ml Balance 450 ml 1065 ml Exam gen- nad, nontoxic lungs- cta heart- rrr abd- hypoactive bs, soft, mild diffuse tenderness. ext- bilateral edema Results Result Diagram: 02/01/17 0458 02/01/17 0459 Medications Medications Current Medications Hydromorphone HCl (Dilaudid) 2 mg Q4H PRN IV PAIN Last administered on 07:49; Admin Dose 2 MG; Start 01/28/17 at 01:30 Ondansetron HCl (Zofran Inj) 4 mg Q6H PRN IV NAUSEA AND/OR VOMITING Last administered on 02/01/17 14:08; Admin Dose 4 MG; Start 01/28/17 at 01:30 Docusate Sodium (Colace) 100 mg DAILY PO Last administered on 02/02/17 07:49; Admin Dose 100 MG; Start 01/28/17 at 09:00 Pantoprazole (Protonix Tab) 40 mg DAILY@06 PO Last administered on 02/02/17 06 :01; Admin Dose 40 MG; Start 01/28/17 at 06:00 Al Hydrox/Mg Hydrox/ Simethicone 30 ml 30 ml Q6H PRN PO GASTROINTESTINAL UPSET Last administered on 01/30/17 15:49; Admin Dose 30 ML; Start 01/28/17 at 05: 30 Dextrose/Sodium Chloride (D5-NS) 1,000 ml @ 75 mls/hr [id number] IV Last administered on 02/01/17 23:52; Admin Dose 75 MLS/HR; Start 01/29/17 at 11:00 Ferrous Sulfate (Ferrous Sulfate (Ec)) 325 mg BID PO Last administered on 07:49; Admin Dose 325 MG; Start 01/30/17 at 21:00 WHIT TRUJILLO MD Feb 02, 2017 11:20
--- NOTE | 2017-02-02 11:51 | PN ---
Date/Time of Note Date/Time of Note DATE: 02/02/17 TIME: 11:42 Assessment/Plan VTE Prophylaxis VTE Prophylaxis Intervention: SCD's Lines/Catheters IV Catheter Type (from Nrs): Peripheral IV Assessment/Plan Chief Complaint/Hosp Course Assessment: This post PEG placement 02/01/17 Adult failure to thrive/malnutrition Recurrent small bowel obstruction Stage IV colon cancer History of GERD/gastritis Plan: Open G-tube for gravity and drainage as needed Consult palliative care team Subjective: Patient is in good spirits. Denies any pain. G-tube site looks clear of drainage swelling or erythema. Patient reports having good appetite. Regular bowel movements through the stoma and regular urination. Nursing staff explained the need to do compress and vent the G-tube as needed. Exam performed in collaboration with Dr. Mason PHYSICAL EXAMINATION: GENERAL: Well developed, well nourished, alert & oriented x 3, in no acute distress SKIN: No lesions, no evidence of bleeding diathesis. Pitting edema in the lower extremities LYMPHATIC: No palpable lymphadenopathy. HEAD: Normocephalic, atraumatic, no tenderness. EYES: Pupils equal reactive to light and accommodation, full extraocular movements, sclera clear, non-icteric, no discharge. EARS/NOSE AND THROAT: Ears normal, nose normal, oropharynx normal, oral membranes well hydrated without lesions. NECK: Supple, no masses, thyroid normal, JVP within normal limits, carotids normal without bruits. CHEST: Inspection within normal limits. CARDIOVASCULAR: Heart: Regular rate and rhythm, no murmurs, gallops or rubs. Peripheral pulses present within normal limits, no cyanosis, clubbing or edemas. No pulsatile abdominal mass RESPIRATORY: Lungs clear to auscultation and percussion, no wheezing, no rubs GASTROINTESTINAL AND LIVER: Abdomen: Soft,mild tenderness, slightly distended, no hernias, no masses, no organomegaly, no ascites, no guarding, no rebound tenderness, normoactive bowel sounds. Colostomy bag and G-tube in place. rectal : Deferred. GENITOURINARY: [Male genitalia within normal limits. EXTREMITIES: No cyanosis, clubbing or edema. Problems: Exam/Review of Systems Vital Signs Vitals Vital Signs Date Time Temp Pulse Resp B/P Pulse Ox O2 Delivery O2 Flow Rate FiO2 02/02/17 07:44 97.5 62 18 146/71 97 02/01/17 20:00 Room Air 02/01/17 12:07 2.0 Intake and Output 02/01/17 02/01/17 02/02/17 15:00 23:00 07:00 Intake Total 450 ml 1265 ml Output Total 200 ml Balance 450 ml 1065 ml Results Result Diagram: 02/01/17 0458 02/01/17 0459 Medications Medications Current Medications Hydromorphone HCl (Dilaudid) 2 mg Q4H PRN IV PAIN Last administered on 07:49; Admin Dose 2 MG; Start 01/28/17 at 01:30 Ondansetron HCl (Zofran Inj) 4 mg Q6H PRN IV NAUSEA AND/OR VOMITING Last administered on 02/01/17 14:08; Admin Dose 4 MG; Start 01/28/17 at 01:30 Docusate Sodium (Colace) 100 mg DAILY PO Last administered on 02/02/17 07:49; Admin Dose 100 MG; Start 01/28/17 at 09:00 Pantoprazole (Protonix Tab) 40 mg DAILY@06 PO Last administered on 02/02/17 06 :01; Admin Dose 40 MG; Start 01/28/17 at 06:00 Al Hydrox/Mg Hydrox/ Simethicone 30 ml 30 ml Q6H PRN PO GASTROINTESTINAL UPSET Last administered on 01/30/17 15:49; Admin Dose 30 ML; Start 01/28/17 at 05: 30 Dextrose/Sodium Chloride (D5-NS) 1,000 ml @ 75 mls/hr [id number] IV Last administered on 02/01/17 23:52; Admin Dose 75 MLS/HR; Start 01/29/17 at 11:00 Ferrous Sulfate (Ferrous Sulfate (Ec)) 325 mg BID PO Last administered on 07:49; Admin Dose 325 MG; Start 01/30/17 at 21:00 Copies To: CC: SHANNAN MASON MD, ANASTASIA NP Feb 02, 2017 11:51
[2017-02-02] MEDS: DEXTROSE 5%-0.9% NACL 1,000 ML IV SCH ×2 (13:10→21:40)
[2017-02-02 14:00] VITALS: BP 141/74; RESP 19
[2017-02-02 20:59] VITALS: BP 160/86; RESP 20
[2017-02-03] MEDS ORDERED: DEXTROSE 50% 50 ML SYRINGE IV ONE ×2 (00:30→04:00)
[2017-02-03] MEDS ORDERED: GLUCOSE GEL 15 GRAM TUBE PO ONE ×2 (02:00→02:51)
[2017-02-03 02:23] VITALS: BP 141/63; RESP 20
[2017-02-03] MEDS: PANTOPRAZOLE (EC) 40 MG TAB PO SCH (06:12)
[2017-02-03] MEDS: HYDROmorphONE 2 MG/ML SYG IV PRN ×4 (06:12→19:16)
[2017-02-03 08:01] VITALS: BP 160/77; PULSE 61; RESP 10; RESP 16
[2017-02-03] MEDS: DEXTROSE 5%-0.9% NACL 1,000 ML IV SCH (08:52)
[2017-02-03] MEDS: DOCUSATE SODIUM 100 MG CAP PO SCH (08:53)
[2017-02-03] MEDS: FERROUS SULFATE (EC) 325 MG TAB PO SCH ×2 (08:53→21:00)
--- NOTE | 2017-02-03 10:51 | PN ---
Date/Time of Note Date/Time of Note DATE: 02/03/17 TIME: 10:48 Assessment/Plan VTE Prophylaxis VTE Prophylaxis Intervention: SCD's Lines/Catheters IV Catheter Type (from Nrs): Peripheral IV Assessment/Plan Chief Complaint/Hosp Course Assessment: This post PEG placement 02/01/17 Adult failure to thrive/malnutrition Recurrent small bowel obstruction Stage IV colon cancer History of GERD/gastritis Plan: GT for decompression as needed Palliative care team has been consulted Patient seen in collaboration with Dr. Mason Subjective: Course reviewed with nursing staff Patient interviewed and examined All labs, imaging and other results reviewed This very pleasant patient is resting in bed, g-tube for decompression as needed. Currently denies abd pain or discomfort. Code status DNR, possible hospice eval. GI will sign off but with be available if needed. PHYSICAL EXAMINATION: GENERAL: Well developed, well nourished, alert & oriented x 3, in no acute distress SKIN: No lesions, no evidence of bleeding diathesis. Pitting edema in the lower extremities LYMPHATIC: No palpable lymphadenopathy. HEAD: Normocephalic, atraumatic, no tenderness. EYES: Pupils equal reactive to light and accommodation, full extraocular movements, sclera clear, non-icteric, no discharge. EARS/NOSE AND THROAT: Ears normal, nose normal, oropharynx normal, oral membranes well hydrated without lesions. NECK: Supple, no masses, thyroid normal, JVP within normal limits, carotids normal without bruits. CHEST: Inspection within normal limits. CARDIOVASCULAR: Heart: Regular rate and rhythm, no murmurs, gallops or rubs. Peripheral pulses present within normal limits, no cyanosis, clubbing or edemas. No pulsatile abdominal mass RESPIRATORY: Lungs clear to auscultation and percussion, no wheezing, no rubs GASTROINTESTINAL AND LIVER: Abdomen: Soft,mild tenderness, slightly distended, no hernias, no masses, no organomegaly, no ascites, no guarding, no rebound tenderness, normoactive bowel sounds. Colostomy bag and G-tube in place. rectal : Deferred. GENITOURINARY: Male genitalia within normal limits. EXTREMITIES: No cyanosis, clubbing or edema. Problems: Exam/Review of Systems Vital Signs Vitals Vital Signs Date Time Temp Pulse Resp B/P Pulse Ox O2 Delivery O2 Flow Rate FiO2 02/03/17 08:01 96.3 61 16 160/77 95 Room Air 02/01/17 12:07 2.0 Intake and Output 02/02/17 02/02/17 02/03/17 14:59 22:59 06:59 Intake Total 600 ml 225 ml 300 ml Balance 600 ml 225 ml 300 ml Results Result Diagram: 02/01/17 0458 02/03/17 0030 Results 24 hrs Laboratory Tests Test 02/03/17 00:08 02/03/17 00:30 02/03/17 02:32 02/03/17 03:26 Bedside Glucose 43 *L 38 *L 53 L Glucose Level 32 #*L Test 02/03/17 05:05 02/03/17 06:09 Bedside Glucose 157 107 Medications Medications Current Medications Hydromorphone HCl (Dilaudid) 2 mg Q4H PRN IV PAIN Last administered on 10:15; Admin Dose 2 MG; Start 01/28/17 at 01:30 Ondansetron HCl (Zofran Inj) 4 mg Q6H PRN IV NAUSEA AND/OR VOMITING Last administered on 02/01/17 14:08; Admin Dose 4 MG; Start 01/28/17 at 01:30 Docusate Sodium (Colace) 100 mg DAILY PO Last administered on 02/03/17 08:53; Admin Dose 100 MG; Start 01/28/17 at 09:00 Pantoprazole (Protonix Tab) 40 mg DAILY@06 PO Last administered on 02/03/17 06 :12; Admin Dose 40 MG; Start 01/28/17 at 06:00 Al Hydrox/Mg Hydrox/ Simethicone 30 ml 30 ml Q6H PRN PO GASTROINTESTINAL UPSET Last administered on 01/30/17 15:49; Admin Dose 30 ML; Start 01/28/17 at 05: 30 Dextrose/Sodium Chloride (D5-NS) 1,000 ml @ 75 mls/hr [id number] IV Last administered on 02/03/17 08:52; Admin Dose 75 MLS/HR; Start 01/29/17 at 11:00 Ferrous Sulfate (Ferrous Sulfate (Ec)) 325 mg BID PO Last administered on 08:53; Admin Dose 325 MG; Start 01/30/17 at 21:00 COLBY MENDENHALL Feb 03, 2017 10:51
--- NOTE | 2017-02-03 13:45 | PN ---
Date/Time of Note Date/Time of Note DATE: 02/03/17 TIME: 13:41 Assessment/Plan VTE Prophylaxis VTE Prophylaxis Intervention: other Lines/Catheters IV Catheter Type (from Nrsg): Peripheral IV Assessment/Plan Assessment/Plan A: stage 4 rectal Ca sbo hypoglycemia anemia P: hospice eval - ?inpt hospice cont supportive care Subjective 24 Hr Interval Summary Free Text/Dictation Pt with hypoglycemia responded to glucose gel and D50. Pain improving. No n/ v. Some ostomy output. meeting with hospice. Exam/Review of Systems Vital Signs Vitals Vital Signs Date Time Temp Pulse Resp B/P Pulse Ox O2 Delivery O2 Flow Rate FiO2 02/03/17 08:01 96.3 61 16 160/77 95 Room Air 02/01/17 12:07 2.0 Intake and Output 02/02/17 02/02/17 02/03/17 15:00 23:00 07:00 Intake Total 600 ml 225 ml 1140 ml Balance 600 ml 225 ml 1140 ml Exam gen- nad, nontoxic lungs- CTA heart- RRR abd- sl distended, mild tenderness to palp ext- edema unchanged Results Result Diagram: 02/01/17 0458 02/03/17 0030 Results 24 hrs Laboratory Tests Test 02/03/17 00:08 02/03/17 00:30 02/03/17 02:32 02/03/17 03:26 Bedside Glucose 43 *L 38 *L 53 L Glucose Level 32 #*L Test 02/03/17 05:05 02/03/17 06:09 Bedside Glucose 157 107 Medications Medications Current Medications Hydromorphone HCl (Dilaudid) 2 mg Q4H PRN IV PAIN Last administered on 10:15; Admin Dose 2 MG; Start 01/28/17 at 01:30 Ondansetron HCl (Zofran Inj) 4 mg Q6H PRN IV NAUSEA AND/OR VOMITING Last administered on 02/01/17 14:08; Admin Dose 4 MG; Start 01/28/17 at 01:30 Docusate Sodium (Colace) 100 mg DAILY PO Last administered on 02/03/17 08:53; Admin Dose 100 MG; Start 01/28/17 at 09:00 Pantoprazole (Protonix Tab) 40 mg DAILY@06 PO Last administered on 02/03/17 06 :12; Admin Dose 40 MG; Start 01/28/17 at 06:00 Al Hydrox/Mg Hydrox/ Simethicone 30 ml 30 ml Q6H PRN PO GASTROINTESTINAL UPSET Last administered on 01/30/17 15:49; Admin Dose 30 ML; Start 01/28/17 at 05: 30 Dextrose/Sodium Chloride (D5-NS) 1,000 ml @ 75 mls/hr [id number] IV Last administered on 02/03/17 08:52; Admin Dose 75 MLS/HR; Start 01/29/17 at 11:00 Ferrous Sulfate (Ferrous Sulfate (Ec)) 325 mg BID PO Last administered on 08:53; Admin Dose 325 MG; Start 01/30/17 at 21:00 WHIT TRUJILLO MD Feb 03, 2017 13:45
[2017-02-03 14:48] VITALS: BP 139/78; PULSE 72; RESP 14
[2017-02-03 20:29] VITALS: BP 126/75; RESP 18
[2017-02-04] MEDS: DEXTROSE 5%-0.9% NACL 1,000 ML IV SCH ×2 (00:20→07:18)
[2017-02-04 02:56] VITALS: BP_SYST 130; BP_SYST 161; BP_DIAS 63; BP_DIAS 74; RESP 18
[2017-02-04] MEDS: HYDROmorphONE 2 MG/ML SYG IV PRN ×2 (04:10→09:09)
[2017-02-04] MEDS: PANTOPRAZOLE (EC) 40 MG TAB PO SCH (06:00)
[2017-02-04 08:00] VITALS: BP 129/64; RESP 15
[2017-02-04] MEDS: FERROUS SULFATE (EC) 325 MG TAB PO SCH (09:00)
[2017-02-04] MEDS: DOCUSATE SODIUM 100 MG CAP PO SCH (09:00)
--- NOTE | 2017-02-04 09:53 | HP ---
Date/Time of Note Date/Time of Note DATE: 02/04/17 TIME: 09:53 Assessment/Plan Lines/Catheters IV Catheter Type (from [facility] Peripheral IV Urinary Cath still in place: No HPI/ROS Admit Date/Time Admit Date/Time Jan 27, 2017 at 22:18 ROS Eyes: no complaints ENT: no complaints Respiratory: no complaints Cardiovascular: no complaints Gastrointestinal: other (See HPI) Genitourinary: no complaints Musculoskeletal: no complaints Skin: no complaints Neurologic: no complaints Lymphatic: no complaints Psychological: nl mood/affect, no complaints Immunologic: no complaints PMH/Family/Social Social History Alcohol Use: none Smoking Status: Never smoker Drug Use: none Exam/Review of Systems Vital Signs Vitals Vital Signs Date Time Temp Pulse Resp B/P Pulse Ox O2 Delivery O2 Flow Rate FiO2 02/04/17 08:00 97.4 56 15 129/64 78 02/03/17 14:48 Room Air 02/01/17 12:07 2.0 Intake and Output 02/03/17 02/03/17 02/04/17 15:00 23:00 07:00 Intake Total 300 ml 1060 ml 560 ml Balance 300 ml 1060 ml 560 ml Labs Result Diagram: 02/01/17 0458 02/03/17 0030 Medications Medications Current Medications Hydromorphone HCl (Dilaudid) 2 mg Q4H PRN IV PAIN Last administered on 09:09; Admin Dose 2 MG; Start 01/28/17 at 01:30 Ondansetron HCl (Zofran Inj) 4 mg Q6H PRN IV NAUSEA AND/OR VOMITING Last administered on 02/01/17 14:08; Admin Dose 4 MG; Start 01/28/17 at 01:30 Docusate Sodium (Colace) 100 mg DAILY PO Last administered on 02/03/17 08:53; Admin Dose 100 MG; Start 01/28/17 at 09:00 Pantoprazole (Protonix Tab) 40 mg DAILY@06 PO Last administered on 02/03/17 06 :12; Admin Dose 40 MG; Start 01/28/17 at 06:00 Al Hydrox/Mg Hydrox/ Simethicone 30 ml 30 ml Q6H PRN PO GASTROINTESTINAL UPSET Last administered on 01/30/17 15:49; Admin Dose 30 ML; Start 01/28/17 at 05: 30 Dextrose/Sodium Chloride (D5-NS) 1,000 ml @ 75 mls/hr [id number] IV Last administered on 02/04/17 07:18; Admin Dose 75 MLS/HR; Start 01/29/17 at 11:00 Ferrous Sulfate (Ferrous Sulfate (Ec)) 325 mg BID PO Last administered on 08:53; Admin Dose 325 MG; Start 01/30/17 at 21:00 LUPE SEALS MD Feb 04, 2017 09:53
--- NOTE | 2017-02-04 13:52 | PN ---
Date/Time of Note Date/Time of Note DATE: 02/04/17 TIME: 13:50 Assessment/Plan VTE Prophylaxis VTE Prophylaxis Intervention: SCD's Lines/Catheters IV Catheter Type (from Nrsg): Peripheral IV Urinary Cath still in place: No Subjective 24 Hr Interval Summary Free Text/Dictation pt was supposed to be enrolled in Hospice today but pt before Enrollment in hospice. I was happened to be on the floor rounding to see pt. I pronounced the pt . Time of : 10:00 AM Date of : 02/04/2017 Pt before enrollment in hospice. All Further Paperswork and certificate should be forwarded to Pt Primary Physician juláin Ignacio Exam/Review of Systems Vital Signs Vitals Vital Signs Date Time Temp Pulse Resp B/P Pulse Ox O2 Delivery O2 Flow Rate FiO2 02/04/17 09:30 Nasal Cannula 2.0 02/04/17 08:00 97.4 56 15 129/64 78 Intake and Output 02/03/17 02/03/17 02/04/17 15:00 23:00 07:00 Intake Total 300 ml 1060 ml 560 ml Balance 300 ml 1060 ml 560 ml Results Result Diagram: 02/01/17 0458 02/03/17 0030 Medications Medications Current Medications Hydromorphone HCl (Dilaudid) 2 mg Q4H PRN IV PAIN Last administered on 09:09; Admin Dose 2 MG; Start 01/28/17 at 01:30 Ondansetron HCl 4 mg 4 mg Q6H PRN IV NAUSEA AND/OR VOMITING Last administered on 02/01/17 14:08; Admin Dose 4 MG; Start 01/28/17 at 01:30 Dextrose/Sodium Chloride (D5-NS) 1,000 ml @ 75 mls/hr [id number] IV Last administered on 02/04/17 07:18; Admin Dose 75 MLS/HR; Start 01/29/17 at 11:00 LUPE SEALS MD Feb 04, 2017 13:51
== END 2017-02-04 10:00 | disposition expired | DRG 388 ==
LOC: E/R 14:06 → PP2 22:18
PROVIDERS: ADMIT Internal Medicine; ATTEND Internal Medicine
PROC: 0DH63UZ Insertion of Feeding Device into Stomach, Percutaneous Approach (ICD-10-PCS; principal; 2017-02-01 11:30)
DX: K56.699 Other intestinal obstruction unspecified as to partial versus complete obstruction (principal); E43 Unspecified severe protein-calorie malnutrition; J90 Pleural effusion, not elsewhere classified; R18.8 Other ascites; R64 Cachexia; C20 Malignant neoplasm of rectum; N13.1 Hydronephrosis with ureteral stricture, not elsewhere classified; N32.1 Vesicointestinal fistula; Z68.1 Body mass index [BMI] 19.9 or less, adult; N39.0 Urinary tract infection, site not specified; I10 Essential (primary) hypertension; F41.9 Anxiety disorder, unspecified; R60.1 Generalized edema; D64.9 Anemia, unspecified; R62.7 Adult failure to thrive; K20.9 Esophagitis, unspecified; Z93.3 Colostomy status
CPT/HCPCS: 36415; 74177; 80048; 80053; 81001; 81003; 82728; 82947; 82962; 83540; 83690; 85025; 87086; 96374; 96375; 96376; J0690; J1170; J2405; J7030; J7042; Q9967